=== PATIENT | female | born 1940 | race Caucasian/White ===

== ENCOUNTER 2018-01-12 13:22 | Emergency (ER) | payer OTHER ==
--- OUTSIDE RECORDS SUMMARY | 2018-01-12 13:24 | XMS REPORT | Clinical Summary ---
:1940 Author Organization [facility] Address [address] [place] [id number] Care Team Providers Name Role Phone Asked, No Pcp Primary Care Provider Unavailable Allergies Active Allergy Reactions Severity Noted Date Comments Iodine 11/10/2017 Current Medications Not on file Active Problems Not on file Encounters Date Type Specialty Care Team Description 11/10/2017 Emergency Emergency Medicine 11/10/2017 Hospital Encounter Radiology Nell Whitney Abdominal pain, unspecified abdominal location; MD Grant Mass of colon 11/07/2017 Ancillary Orders Access Nell Whitney MD 10/29/2017 Transcribe Orders Access Nell Whitney Abdominal pain, unspecified abdominal location (Primary Dx); MD Grant Mass of colon; Liver mass after 01/11/2017 Social History Tobacco Use Types Packs/Day Years Used Date Never Assessed Sex Assigned at Date Recorded Not on file Last Filed Vital Signs Vital Sign Reading Time Taken Blood Pressure 127/58 11/10/2017 1:12 PM [employer] Pulse 65 11/10/2017 1:12 PM [employer] Temperature 36.5 C (97.7 F) 11/10/2017 1:12 PM [employer] Respiratory Rate - - Oxygen Saturation 95% 11/10/2017 1:12 PM [employer] Inhaled Oxygen Concentration - - Weight - - Height 162.6 cm (5' 4") 11/10/2017 1:11 PM [employer] Body Mass Index - - Plan of Treatment Health Maintenance Due Date Last Done Comments SHINGRIX VACCINE (#1) 1990 ZOSTER VACCINE 2000 PNEUMOCOCCAL POLYSACCHARIDE VACCINE AGE 65 AND OVER 2005 PNEUMOCOCCAL-13 2005 INFLUENZA VACCINE 04/08/2018 Results [place] Colon Barium Enema (11/10/2017 12:41 PM) Specimen Performing Laboratory [facility] [address] [place] [address] Narrative EXAMINATION:FL COLON BARIUM ENEMA CLINICAL HISTORY:R10.9 Unspecified abdominal pain, K63.9 Disease of intestineunspecified, ABD PAIN AND COLON MASSINCOMPLETE COLONSCOPY COMPARISON:None. TECHNIQUE: Barium was attempted to administered via a rectal tube by gravity under fluoroscopic guidance. However, despite repeated attempts, only the rectum could be filled with contrast before the patient ejected the balloon per rectum.. Spot radiographs and overhead films were obtained. FLUOROSCOPIC TIME:1 minute. Total of 2 fluoroscopic spot images obtained. FINDINGS: Care Mgr image demonstrates nonobstructive bowel gas pattern. Atherosclerotic calcification. A right hip arthroplasty. There appears to be subtotal colectomy with a primary anastomosis to the rectum , though this could represent nondistended sigmoid colon. Evaluation is limited due to underdistention and only a small amount of contrast able to be administered. Of note however there is no contrast extravasation to indicate leak. IMPRESSION: Limited exam as detailed above. Possible distal colonic anastomosis. [facility]-[id number] Procedure Note [facility], Radiology Results Incoming - 11/10/2017 4:18 PM [employer] EXAMINATION: [place] COLON BARIUM ENEMA CLINICAL HISTORY: R10.9 Unspecified abdominal pain, K63.9 Disease of intestine unspecified, ABD PAIN AND COLON MASS INCOMPLETE COLONSCOPY COMPARISON: None. TECHNIQUE: Barium was attempted to administered via a rectal tube by gravity under fluoroscopic guidance. However, despite repeated attempts, only the rectum could be filled with contrast before the patient ejected the balloon per rectum.. Spot radiographs and overhead films were obtained. FLUOROSCOPIC TIME: 1 minute. Total of 2 fluoroscopic spot images obtained. FINDINGS: Care Mgr image demonstrates nonobstructive bowel gas pattern. Atherosclerotic calcification. A right hip arthroplasty. There appears to be subtotal colectomy with a primary anastomosis to the rectum , though this could represent nondistended sigmoid colon. Evaluation is limited due to underdistention and only a small amount of contrast able to be administered. Of note however there is no contrast extravasation to indicate leak. IMPRESSION: Limited exam as detailed above. Possible distal colonic anastomosis. [facility]-[id number] after 01/11/2017 Insurance Payer Benefit Plan / Group Subscriber ID Type Phone Address MEDICARE MEDICARE PART A AND B xxxxxxxxxx Medicare [place], [place] FOR LIFE [phone] [place], [place] [phone]
--- OUTSIDE RECORDS SUMMARY | 2018-01-12 13:25 | XMS REPORT | Clinical Summary ---
:1940 Author Organization [employer] Address [address] [place] [address] Phone Care Team Providers Name Role Phone Unavailable Primary Care Provider Unavailable Allergies Active Allergy Reactions Severity Noted Date Comments Iodine And Iodide Containing Hives 05/22/1977 Pt does eat shrimps and Products other seafood. Current Medications Prescription Sig. Disp. Refills Start Date End Date Status aspirin 81 MG EC Take 81 mg by Active tablet mouth daily. atorvastatin Take 40 mg by Active (LIPITOR) 40 MG mouth daily. tablet calcium Take 1 tablet Active carbonate-vitamin by mouth 2 D3 (CALCIUM-VITAMIN (two) times D) 500 mg(1,250mg) daily with -200 unit per breakfast and tablet dinner. donepezil (ARICEPT) Take 10 mg by Active 10 MG tablet mouth nightly. metFORMIN Take 500 mg by Active (GLUCOPHAGE) 500 MG mouth 2 (two) tablet times daily with breakfast and dinner. albuterol HFA Inhale 1 puff Active (VENTOLIN HFA) 90 by mouth via mcg/actuation inhaler every 6 inhaler (six) hours as needed for Wheezing (SOB). nicotine (NICODERM Place 1 patch Active CQ) 21 mg/24 hr onto the skin patch daily. nitroglycerin Place 0.4 mg Active (NITROSTAT) 0.4 MG under the SL tablet tongue every 5 (five) minutes as needed for Chest pain Put 1 pill under tongue every 5min as needed for chest pain.No more than 3 doses in 15min.Call 911 if pain is unrelieved 5min after 1st dose . metoprolol TAKE 1/2 45 tablet 0 05/29/2017 Active (TOPROL-XL) 25 MG TABLET(12.5 MG) 24 hr tablet BY MOUTH DAILY lisinopril TAKE 1 90 tablet 0 05/29/2017 Active (PRINIVIL,ZESTRIL) TABLET(2.5 MG) 2.5 MG tablet BY MOUTH DAILY clopidogrel TAKE 1 TABLET 90 tablet 0 05/29/2017 Active (PLAVIX) 75 mg BY MOUTH DAILY. tablet HYDROcodone-acetami Take 1 tablet Active nophen (NORCO by mouth every 10-325) 10-325 mg 6 (six) hours per tablet as needed for Pain. multivitamin per Take 1 tablet Active tablet by mouth daily. lisinopril TAKE 1 30 tablet 0 06/19/2017 Active (PRINIVIL,ZESTRIL) TABLET(2.5 MG) 2.5 MG tablet BY MOUTH DAILY metoprolol TAKE 1/2 30 tablet 0 07/25/2017 Active (TOPROL-XL) 25 MG TABLET(12.5 MG) 24 hr tablet BY MOUTH DAILY folic acid Take 400 mcg by Discontinued (FOLVITE) 400 MCG mouth daily. 7 tablet metoprolol Take 25 mg by Discontinued (TOPROL-XL) 25 MG mouth daily. 7 24 hr tablet lisinopril Take 1 tablet 30 tablet 0 05/28/2017 Discontinued (PRINIVIL,ZESTRIL) (2.5 mg total) 7 2.5 MG tablet by mouth daily. metoprolol Take 0.5 30 tablet 0 05/28/2017 Discontinued (TOPROL-XL) 25 MG tablets (12.5 7 24 hr tablet mg total) by mouth daily. furosemide (LASIX) Take 1 tablet 20 tablet 0 05/28/2017 Discontinued 20 MG tablet (20 mg total) 7 by mouth 2 (two) times daily. clopidogrel Take 1 tablet 30 tablet 0 05/28/2017 Discontinued (PLAVIX) 75 mg (75 mg total) 7 tablet by mouth daily. furosemide (LASIX) TAKE 1 180 tablet 0 05/29/2017 Discontinued 20 MG tablet TABLET(20 MG) 7 BY MOUTH TWICE DAILY furosemide (LASIX) TAKE 1 20 tablet 0 06/09/2017 Discontinued 20 MG tablet TABLET(20 MG) 7 BY MOUTH TWICE DAILY Active Problems Problem Noted Date Diabetes mellitus (HCC) 05/25/2017 Acute pulmonary insufficiency following thoracic surgery ([facility]) 05/24/2017 Encephalopathy acute 05/24/2017 Cardiogenic shock (HCC) 05/24/2017 COPD (chronic obstructive pulmonary disease) (HCC) 05/24/2017 Hyperchloremic metabolic acidosis 05/24/2017 Acute blood loss anemia 05/24/2017 Acute respiratory insufficiency, postoperative 05/23/2017 Hypoxemia 05/23/2017 Hemoptysis 05/23/2017 NSTEMI (non-ST elevated myocardial infarction) (HCC) 05/22/2017 Encounters Date Type Specialty Care Team Description 07/24/2017 Refill Cardiology Luis Jason MD 06/19/2017 Refill Cardiology Luis Jason MD 06/12/2017 Office Visit Transplant Cristina, S/P coronary artery MD Sasha bypass graft x 2 (Primary Dx) 06/06/2017 Refill Cardiology Luis Jason MD 05/28/2017 Refill Cardiology Luis Jason MD 05/23/2017 Procedure Pass 05/23/2017 Surgery Bee, BYPASS,AORTO CORONARY MD Sasha ADRIANE/SVG 05/22/2017 - Hospital Encounter Cardiology Larry Mccray, NSTEMI (non-ST 05/28/2017 MD elevated myocardial infarction) ([facility]);SOB (shortness of breath);Left main coronary artery disease;Smoker;Type 2 diabetes mellitus with other circulatory complication ([facility]);Secondary hypertension;Chest pain, unspecified type;Acute respiratory insufficiency, postoperative;Hypoxem ia;Hemoptysis;Acute blood loss anemia;Acute pulmonary insufficiency following thoracic surgery (HCC);Cardiogenic shock (HCC) 05/22/2017 Anesthesia Event Claudia Zaragoza MD 05/22/2017 Orders Only General Internal Medicine after 01/11/2017 Family History Medical History Relation Name Comments Cancer Father Cancer Mother Cancer Sister Relation Name Status Comments Father Mother Sister Social History Tobacco Use Types Packs/Day Years Used Date Former Smoker 0.5 60 Quit: 05/21/2017 Smokeless Tobacco: Never Used Tobacco Cessation: Counseling Given: Yes Alcohol Use Drinks/Week oz/Week Comments No Sex Assigned at Date Recorded Not on file Last Filed Vital Signs Vital Sign Reading Time Taken Blood Pressure 130/69 06/12/2017 12:33 PM CDT Pulse 60 06/12/2017 12:33 PM CDT Temperature 35.7 C (96.3 F) 06/12/2017 12:33 PM CDT Respiratory Rate 18 06/12/2017 12:33 PM CDT Oxygen Saturation 98% 06/12/2017 12:33 PM CDT Inhaled Oxygen Concentration - - Weight 67.8 kg (149 lb 6.4 oz) 06/12/2017 12:33 PM CDT Height 162.6 cm (5' 4") 06/12/2017 12:33 PM CDT Body Mass Index 25.64 06/12/2017 12:33 PM CDT Plan of Treatment Health Maintenance Due Date Last Done Comments INFLUENZA VACCINE 06/08/2018 Procedures Procedure Name Priority Date/Time Associated Diagnosis Comments ENDOSCOPIC HARVEST,VEIN 05/23/2017 7:30 AM CAD CDT BYPASS,AORTO CORONARY 05/23/2017 7:30 AM CAD ADRIANE/SVG CDT after 01/11/2017 Results RHYTHM STRIP - SCAN (06/04/2017 10:20 AM)Only the most recent of2 resultswithin the time period is included.EKG-SCANNED (05/29/2017 2:21 PM)PERMANENT LAB REPORT - SCAN (05/29/2017 2:20 PM)Calcium, Ionized (05/28/2017 4:36 AM)Only the most recent of8 resultswithin the time period is included. Component Value Ref Range Calcium, Ion 1.10 (L) 1.12 - 1.27 mmol/L pH, Blood 7.34 Specimen Performing Laboratory Blood - Arm, [address] [address] CBC with platelet count + automated diff (05/28/2017 4:36 AM)Only the most recent of7 resultswithin the time period is included. Component Value Ref Range WBC 10.4 3.5 - 10.5 K/L RBC 2.75 (L) 3.93 - 5.22 M/L Hemoglobin 8.3 (L) 11.2 - 15.7 GM/DL Hematocrit 26.2 (L) 34.1 - 44.9 % MCV 95.3 (H) 79.4 - 94.8 fL MCH 30.2 25.6 - 32.2 pg MCHC 31.7 (L) 32.2 - 35.5 GM/DL RDW 15.6 (H) 11.7 - 14.4 % Platelets 213 150 - 450 K/CU MM MPV 11.4 9.4 - 12.3 fL nRBC 0 0 - 0 /100 WBC % Neutros 59 % % Lymphs 22 % % Monos 12 % % Eos 5 % % Baso 1 % # Neutros 6.17 (H) 1.56 - 6.13 K/L # Lymphs 2.26 1.18 - 3.74 K/L # Monos 1.26 (H) 0.24 - 0.36 K/L # Eos 0.52 (H) 0.04 - 0.36 K/L # Baso 0.05 0.01 - 0.08 K/L Immature Granulocytes-Relative 1 0 - 1 % Specimen Performing Laboratory Blood - Arm, [address] [address] CBC with platelet count + automated diff (05/28/2017 4:36 AM)Only the most recent of7 resultswithin the time period is included. Specimen Performing Laboratory Blood Narrative The following orders were created for panel order CBC with platelet count + automated diff. Procedure Abnormality Status --------- ------ CBC with platelet count ...[[id number]]AbnormalFinal result Please view results for these tests on the individual orders. Phosphorus (05/28/2017 4:36 AM)Only the most recent of4 resultswithin the time period is included. Component Value Ref Range Phosphorus 3.5 2.3 - 4.7 mg/dL Specimen Performing Laboratory Blood - Arm, [address] [address] Magnesium (05/28/2017 4:36 AM)Only the most recent of6 resultswithin the time period is included. Component Value Ref Range Magnesium 2.0 1.6 - 2.6 mg/dL Specimen Performing Laboratory Blood - Arm, [address] [address] Basic Metabolic Panel (05/28/2017 4:36 AM)Only the most recent of8 resultswithin the time period is included. Component Value Ref Range Sodium 143 136 - 145 meq/L Potassium 3.8 3.5 - 5.1 meq/L Chloride 109 (H) 98 - 107 meq/L CO2 29 22 - 29 meq/L BUN 22 (H) 7 - 21 mg/dL Creatinine 0.96 0.57 - 1.25 mg/dL Glucose 104 70 - 105 mg/dL Calcium 8.5 8.4 - 10.2 mg/dL EGFR 56Comment: ESTIMATED GFR IS NOT ACCURATE mL/min/1.73 sq m CREATININE CLEARANCE IN PREDICTING GLOMERULAR FILTRATION RATE. ESTIMATED GFR IS NOT APPLICABLE FOR DIALYSIS PATIENTS. Specimen Performing Laboratory Blood - Arm, [place] [address] TRANSFUSION SERVICE REPORT - SCAN (05/26/2017 5:40 PM)Only the most recent of4 resultswithin the time period is included.XR chest 1 view portable / bedside ( 7:51 AM)Only the most recent of5 resultswithin the time period is included. Specimen Performing Laboratory GE RIS Narrative FINAL REPORT Chest one view compared to May 25, 2017 Discussion: Right chest tube is removed. Left-sided drainage tubes remain. Ill-defined opacities both lung bases are similar. There may be a small right effusion. No pneumothorax. Signed: Franco Wilkinson MD Report Verified Date/Time:05/26/2017 09:05:29 Reading Location: [facility] Radiology Reading Room Procedure Note Interface, External Ris In - 05/26/2017 9:07 AM CDT FINAL REPORT Chest one view compared to May 25, 2017 Discussion: Right chest tube is removed. Left-sided drainage tubes remain. Ill-defined opacities both lung bases are similar. There may be a small right effusion. No pneumothorax. Signed: Franco Wilkinson MD Report Verified Date/Time: 05/26/2017 09:05:29 Reading Location: [facility] Radiology Reading Room Vitamin B12 and Folate (05/26/2017 5:49 AM) Component Value Ref Range Vitamin B12 1074 (H) 213 - 816 pg/mL Folate 10.9 >=7.0 ng/mL Specimen Performing Laboratory Blood - Arm, Right [address] [address] Prepare Leuko-Red RBC (05/25/2017 11:54 PM) Component Value Ref Range CROSSMATCH COMPATIBLE Unit ABO O Pos UNIT NUMBER [id number] Status TRANSFUSED Blood Bank Product RED BLOOD CELLS PRODUCT CODE [id number] Specimen Performing Laboratory Other [employer] [place] POC-Glucose meter (05/25/2017 8:54 PM)Only the most recent of3 resultswithin the time period is included. Component Value Ref Range POC-Glucose Meter 146 (H)Comment: TESTED AT [address] 70 - 110 mg/[place] [address] Specimen Performing Laboratory Blood [address] [address] Potassium (05/25/2017 4:48 PM) Component Value Ref Range Potassium 3.7 3.5 - 5.1 meq/L Specimen Performing Laboratory Blood [address] [address] ECHOCARDIOGRAM REPORT - SCAN (05/25/2017 7:20 AM)Oxygen saturation, measured ( 05/25/2017 3:14 AM)Only the most recent of3 resultswithin the time period is included. Component Value Ref Range O2 Saturation (Measured) 67.2 % Specimen Performing Laboratory Blood [address] [address] Prepare PLT (05/24/2017 11:54 PM) Component Value Ref Range Unit ABO O Pos UNIT NUMBER [id number] Status TRANSFUSED Blood Bank Product PLATELETS PRODUCT CODE E3041W01 Unit ABO O Pos UNIT NUMBER [id number] Status TRANSFUSED Blood Bank Product PLATELETS PRODUCT CODE [id number] Specimen Performing Laboratory [employer] [place] Prepare RBC (05/24/2017 11:54 PM) Component Value Ref Range CROSSMATCH COMPATIBLE Unit ABO O Pos UNIT NUMBER [id number] Status TRANSFUSED Blood Bank Product RED BLOOD CELLS PRODUCT CODE T8898X92 CROSSMATCH COMPATIBLE Unit ABO O Pos UNIT NUMBER [id number] Status TRANSFUSED Blood Bank Product RED BLOOD CELLS PRODUCT CODE D7087I38 CROSSMATCH COMPATIBLE Unit ABO O Pos UNIT NUMBER [id number] Status TRANSFUSED Blood Bank Product RED BLOOD CELLS PRODUCT CODE V8862I02 CROSSMATCH COMPATIBLE Unit ABO O Pos UNIT NUMBER [id number] Status TRANSFUSED Blood Bank Product RED BLOOD CELLS PRODUCT CODE [id number] Specimen Performing Laboratory [facility] [place] 2D Echo W/Doppler(CW/PW/Color) (05/24/2017 1:12 PM) Component Value Ref Range Ejection Fraction Specimen Performing Laboratory SLE ECHO HEARTLAB MKLEONID CPACS Narrative Transthoracic Echocardiography Report (TTE) Demographics Patient Name GWENDOLYN GUERRERO Date of Study 05/24/2017 [id number] GenderFemale Visit Number [id number] RaceCaucasian [id number] Number [id number] Number Date of Birth1940 Referring Physician Larry Mccray MD Age77 year(s) 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 Clinical History NSTEMI, Hypoxemia, Acute Respiratory Insufficiency HGB 8.6 HCT 26.2 % Sugery: 9.15.2017 : ACB X3 Height: 64 inches Weight: 62.14 kg (137 lbs) BSA: 1.67 m^2 BMI: 23.52 kg/m^2 HR: 84 bpm BP: 107/50 mmHg Summary The left ventricle is chamber size (by vol index) is normal. Borderline concentric LV hypertrophy. Septal motion is abnormal, likely related to prior cardiac surgery . The other segments contract normally. LVEF by quantitative assessment is increased (>70%) , No pericardial effusion is visualized. The right ventricular chamber size and systolic function are within normal limits. A trace of tricuspid regurgitation. Estimated peak systolic PA pressure is 25-30 mmHg . Signature Findings Left Ventricle The left ventricle is chamber size (by vol index) is normal. Borderline concentric LV hypertrophy. Septal motion is abnormal, likely related to prior cardiac surgery . The other segments contract normally. LVEF by quantitative assessment is increased (>70%) , Left AtriumLA size is mildly enlarged . Right VentricleThe right ventricular chamber size and systolic function are within normal limits. Right Atrium RA size is normal. Aortic Valve Normal AoV structure. No evidence of aortic stenosis. Mitral Valve Mild mitral annular calcification. Trace mitral regurgitation. Tricuspid ValveA trace of tricuspid regurgitation. Estimated peak systolic PA pressure is 25-30 mmHg . Pulmonic Valve PV is not well visualized. No evidence of pulmonary regurgitation. PericardiumNo pericardial effusion is visualized. IVC/SVC/PA/PV/PleuralThe estimated RA pressure by IVC dynamics 0-5mmHg . Chambers/Structures Left Atrium LA Volume: 36.95 ml LA Area: 14.08 cm^ 2 LA Vol. Index: 22 ml/m^2 Left Ventricle LVIDd: 3.9 cm LVEDV 2D :66.07 ml LVIDs: 1.54 cmLVESV 2D :6.49 ml LV Septum Diastolic: 1.26 cm LV Septum Systolic: 1.29 cm LV PW Diastolic: 1.07 cmLV FS: 60.5 % LV PW Systolic: 1.39 cm LV ESV (Cubed): 3.65 cc LVOT Diameter: 2.08 cm LV ESV (Teich):6.49 ml LV SV (Teich):59.42 ml LV SI (Teich):35.58 ml/m^2 LVEF 2D Teich: 90.2 % Shunts QS:75.13 ml Doppler/Quantitative Measurements Mitral Valve MV Peak E-Wave: 0.75 m/sMV Peak A-Wave: 0.92 m/s E/ A Ratio: 0.82 Peak Gradient: 2.25 mmHg Deceleration Time: 247.3 msec Tissue Doppler E' Septal Velocity: 0.09 m/sE/E': 8.2 Aortic Valve Peak Velocity: 1.49 m/sMean Velocity: 1.11 m/s Peak Gradient: 8.87 mmHg Mean Gradient: 5.54 mmHg AV Area (continuity): 2.84 cm^2 AV VTI: 26.44 cm AV DVI: 0.84 LVOT Peak Velocity: 1.38 m/s Peak Gradient: 7.63 mmHg Mean Velocity: 0.89 m/s Mean Gradient: 3.62 mmHg LVOT Diameter: 2.08 cmLVOT VTI: 22.11 cm LVOT Area: 3.4 cm^2 LVOT SV:75.09 ml LVOT CO: 6.31 l/min LVOT CI: 3.78 l/min/m^2 Tricuspid Valve TR Velocity: 2.31 m/s TR Gradient: 21.3 mmHg Procedure Note Interface, External Ris In - 05/24/2017 8:27 PM CDT Transthoracic Echocardiography Report (TTE) Demographics Patient Name GWENDOLYN GUERRERO Date of Study 05/24/2017 Gender Female Visit Number [id number] Race Room Number [id number] Number Date of 1940 Referring Physician Larry Mccray MD Age 77 year(s) 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 Clinical History NSTEMI, Hypoxemia, Acute Respiratory Insufficiency HGB 8.6 HCT 26.2 % Sugery: 9.15.2017 : ACB X3 Height: 64 inches Weight: 62.14 kg (137 lbs) BSA: 1.67 m^2 BMI: 23.52 kg/m^2 HR: 84 bpm BP: 107/50 mmHg Summary The left ventricle is chamber size (by vol index) is normal. Borderline concentric LV hypertrophy. Septal motion is abnormal, likely related to prior cardiac surgery . The other segments contract normally. LVEF by quantitative assessment is increased (>70%) , No pericardial effusion is visualized. The right ventricular chamber size and systolic function are within normal limits. A trace of tricuspid regurgitation. Estimated peak systolic PA pressure is 25-30 mmHg . Signature Findings Left Ventricle The left ventricle is chamber size (by vol index) is normal. Borderline concentric LV hypertrophy. Septal motion is abnormal, likely related to prior cardiac surgery . The other segments contract normally. LVEF by quantitative assessment is increased (>70%) , Left Atrium LA size is mildly enlarged . Right Ventricle The right ventricular chamber size and systolic function are within normal limits. Right Atrium RA size is normal. Aortic Valve Normal AoV structure. No evidence of aortic stenosis. Mitral Valve Mild mitral annular calcification. Trace mitral regurgitation. Tricuspid Valve A trace of tricuspid regurgitation. Estimated peak systolic PA pressure is 25-30 mmHg . Pulmonic Valve PV is not well visualized. No evidence of pulmonary regurgitation. Pericardium No pericardial effusion is visualized. IVC/SVC/PA/PV/Pleural The estimated RA pressure by IVC dynamics 0-5mmHg . Chambers/Structures Left Atrium LA Volume: 36.95 ml LA Area: 14.08 cm^2 LA Vol. Index: 22 ml/m^2 Left Ventricle LVIDd: 3.9 cm LVEDV 2D:66.07 ml LVIDs: 1.54 cm LVESV 2D:6.49 ml LV Septum Diastolic: 1.26 cm LV Septum Systolic: 1.29 cm LV PW Diastolic: 1.07 cm LV FS: 60.5 % LV PW Systolic: 1.39 cm LV ESV (Cubed):3.65 cc LVOT Diameter: 2.08 cm LV ESV (Teich):6.49 ml LV SV (Teich):59.42 ml LV SI (Teich):35.58 ml/m^2 LVEF 2D Teich: 90.2 % Shunts QS:75.13 ml Doppler/Quantitative Measurements Mitral Valve MV Peak E-Wave: 0.75 m/s MV Peak A-Wave: 0.92 m/s E/A Ratio: 0.82 Peak Gradient: 2.25 mmHg Deceleration Time: 247.3 msec Tissue Doppler E' Septal Velocity: 0.09 m/s E/E': 8.2 Aortic Valve Peak Velocity: 1.49 m/s Mean Velocity: 1.11 m/s Peak Gradient: 8.87 mmHg Mean Gradient: 5.54 mmHg AV Area (continuity): 2.84 cm^2 AV VTI: 26.44 cm AV DVI: 0.84 LVOT Peak Velocity: 1.38 m/s Peak Gradient: 7.63 mmHg Mean Velocity: 0.89 m/s Mean Gradient: 3.62 mmHg LVOT Diameter: 2.08 cm LVOT VTI: 22.11 cm LVOT Area: 3.4 cm^2 LVOT SV:75.09 ml LVOT CO: 6.31 l/min LVOT CI: 3.78 l/min/m^2 Tricuspid Valve TR Velocity: 2.31 m/s TR Gradient: 21.3 mmHg Blood gas, arterial (05/24/2017 5:12 AM)Only the most recent of12 resultswithin the time period is included. Component Value Ref Range pH, Arterial 7.33 (L) 7.35 - 7.45 pCO2, Arterial 41 35 - 45 mmHg pO2, Arterial 102 (H) 80 - 90 mmHg O2 Sat, Arterial 97.3 (H) 96.0 - 97.0 % HCO3, Arterial 21 21 - 29 mmol/L Base Excess, Arterial -4.3 (L) -2.0 - 3.0 mmol/L Patient Temperature 37.0 C Specimen Performing Laboratory Blood, Arterial - Line, Arterial [address] [address] Lactic acid, arterial, whole blood (05/24/2017 4:37 AM)Only the most recent of2 resultswithin the time period is included. Component Value Ref Range Lactate, Art 1.8 0.5 - 2.2 mmol/L Specimen Performing Laboratory Blood, Arterial [address] [address] Narrative Effective 01/10/2016: Units/Reference Range Change New: 0.5-2.2 mmol/LPrevious: 5-20 mg/dL Transfuse Leuko-Red RBC (05/24/2017 3:36 AM)Only the most recent of2 resultswithin the time period is included.Hemoglobin and hematocrit (05/23/2017 11:29 PM) Component Value Ref Range Hemoglobin 7.6 (L) 12.0 - 15.0 g/dL Hematocrit 22.0 (L) 36.0 - 45.0 % Specimen Performing Laboratory Blood - Line, Arterial [address] [address] Narrative Done at stat lab. Bronchial culture + gram stain (05/23/2017 5:37 PM) Component Value Ref Range Result <1+ Normal respiratory eugenio present Gram Stain Result 1+ WBCs Gram Stain Result No organisms seen Specimen Performing Laboratory BAL - Lung [address] [address] Glucose-Stat Lab (05/23/2017 4:54 PM)Only the most recent of9 resultswithin the time period is included. Component Value Ref Range Glucose 168 (H) 70 - 110 mg/dL Specimen Performing Laboratory Blood, Arterial - Line, Arterial [address] [address] Sputum Culture + Gram Stain (05/23/2017 2:11 PM) Component Value Ref Range Result 2+ Normal respiratory eugenio present Gram Stain Result 3+ WBCs Gram Stain Result 0-5 epithelial cells Gram Stain Result <1+ gram positive cocci in pairs Specimen Performing Laboratory Sputum - Endotracheal [address] [address] [facility] CRITICAL LABS (ABG,NA,K,H&H,GLUCOSE) (05/23/2017 1:28 PM)Only the most recent of8 resultswithin the time period is included. Specimen Performing Laboratory Blood, Arterial Narrative The following orders were created for panel order [facility] CRITICAL LABS (ABG,NA,K,H&H,GLUCOSE). Procedure Abnormality Status --------- ------ Blood gas, arterial[[id number]]AbnormalFinal result Sodium Na-Stat Lab[[id number]] NormalFinal result Potassium-Stat Lab[[id number]] NormalFinal result Glucose-Stat Lab[[id number]] NormalFinal result HGB/HCT (H&H)-Stat Lab[[id number]] Abnormal Final result Please view results for these tests on the individual orders. Manual Differential (05/23/2017 1:28 PM) Specimen Performing Laboratory Blood [address] [address] Potassium-Stat Lab (05/23/2017 1:28 PM)Only the most recent of8 resultswithin the time period is included. Component Value Ref Range Potassium 4.2 3.6 - 5.5 meq/L Specimen Performing Laboratory Blood, Arterial [address] [address] Sodium Na-Stat Lab (05/23/2017 1:28 PM)Only the most recent of8 resultswithin the time period is included. Component Value Ref Range Sodium 137 135 - 148 meq/L Specimen Performing Laboratory Blood, Arterial [address] [address] HGB/HCT (H&H)-Stat Lab (05/23/2017 1:28 PM)Only the most recent of8 resultswithin the time period is included. Component Value Ref Range Hemoglobin 9.1 (L) 12.0 - 15.0 g/dL Hematocrit 27.0 (L) 36.0 - 45.0 % Specimen Performing Laboratory Blood, Arterial [address] [address] Thromboelastograph (TEG) (05/23/2017 1:28 PM) Component Value Ref Range TEG Activated Clotting Time 5.6 4.0 - 7.0 minutes TEG Fibrinogen Activity 70.5 61.0 - 73.0 degrees TEG Platelet Aggregation 46.6 (L) 55.0 - 65.0 MM TEG Fibrinolysis 22.6 (H) 0.0 - 5.0 % TEG-H Activated Clotting Time 6.2 4.0 - 7.0 minutes TEG-H Fibrinogen Activity 72.7 61.0 - 73.0 degrees TEG-H Platelet Aggregation 63.0 55.0 - 65.0 MM TEG-H Fibrinolysis 0.0 0.0 - 5.0 % Specimen Performing Laboratory Blood [address] [address] POC ACTIVATED CLOTTING TIME (05/23/2017 11:45 AM)Only the most recent of7 resultswithin the time period is included. Component Value Ref Range Activated Clotting Time 109Comment: TESTED AT [address] [place] [address] Specimen Performing Laboratory Blood [facility] [address] [place] [address] ANESTHESIA COLLINS (05/23/2017 11:42 AM) Narrative Riki Edwards MD 05/23/2017 11:42 AM COLLINS Date: 05/23/2017 8:59 AM Sex: Female Location: OR Requesting Physician: SASHA SMALL Examiner: RIKI EDWARDS IntubatedSedated Patient screened for esoph disease: Yes Insertion: easy Probe Type: multiplane Modalities: 2D, CFM, CWD and PWD Aorta Size Dissection Plaque Thick Plaque Mobile Ascending Ao normal No < 3mm No Ao Arch normal No < 3mm No Descending Ao normal No < 3mm No Valves Annulus Stenosis Area (cm3) Gradient Regurgitation Leaflet Morphology Leaflet Motion Not Visualized Aortic valve normal none none normal normal Mitral valve normal none none normal normal Tricuspid normal none trivial (1+) normal normal Atria Size SEC Thrombus Tumor Device Right Atrium normal Left Atrium normal Interatrial Septum: Morphology: normal ASD: Shunt: Interventricular Septum: Morphology: normal Defect: Shunt: Pre Intervention Summary: Procedure: ACB Trace aortic regurgitation. No aortic stenosis. Mean gradient across aortic valve 3mHg. Trileaflet aortic valve without calcifications. Trace mitral regurgitation. Mild Tricuspid stenosis. RVSP 41. Ejection fraction 55% via 3-D Mccray's. No regional wall motion abnormalities. E/A ration 1.0. LA appendage without clot. Flow velocity >40cm/s. RV function normal. Normal RV size. No pericardial effusion. Grade 1 atheromatous disease throughout visualized aorta. No dissection. Findings communicated with surgical team. Post Intervention Follow-up Study: no change Lytton Valve Fxn: No change Post Intervention Summary:Status post ACB. Normal left ventricular wall function. No new regional wall motion abnormalities. Normal RV function and size. No new aortic valve, mitral or tricupsid valvulopathy. No new aortic pathology. No dissection. No pericardial effusion. Findings discussed with surgical colleagues. Procedure Note Riki Edwards MD - 05/23/2017 8:59 AM CDT Formatting of this note may be different from the original. COLLINS Date: 05/23/2017 8:59 AM Sex: Female Location: OR Requesting Physician: SASHA SMALL Examiner: RIKI EDWARDS Intubated Sedated Patient screened for esoph disease: Yes Insertion: easy Probe Type: multiplane Modalities: 2D, CFM, CWD and PWD Aorta Size Dissection Plaque Thick Plaque Mobile Ascending Ao normal No < 3mm No Ao Arch normal No < 3mm No Descending Ao normal No < 3mm No Valves Annulus Stenosis Area (cm3) Gradient Regurgitation Leaflet Morphology Leaflet Motion Not Visualized Aortic valve normal none none normal normal Mitral valve normal none none normal normal Tricuspid normal none trivial (1+) normal normal Atria Size SEC Thrombus Tumor Device Right Atrium normal Left Atrium normal Interatrial Septum: Morphology: normal ASD: Shunt: Interventricular Septum: Morphology: normal Defect: Shunt: Pre Intervention Summary: Procedure: ACB Trace aortic regurgitation. No aortic stenosis. Mean gradient across aortic valve 3mHg. Trileaflet aortic valve without calcifications. Trace mitral regurgitation. Mild Tricuspid stenosis. RVSP 41. Ejection fraction 55% via 3-D Mccray's. No regional wall motion abnormalities. E/A ration 1.0. LA appendage without clot. Flow velocity >40cm/s. RV function normal. Normal RV size. No pericardial effusion. Grade 1 atheromatous disease throughout visualized aorta. No dissection. Findings communicated with surgical team. Post Intervention Follow-up Study: no change Lytton Valve Fxn: No change Post Intervention Summary: Status post ACB. Normal left ventricular wall function. No new regional wall motion abnormalities. Normal RV function and size. No new aortic valve, mitral or tricupsid valvulopathy. No new aortic pathology. No dissection. No pericardial effusion. Findings discussed with surgical colleagues. Blood gas, venous (05/23/2017 9:57 AM) Component Value Ref Range pH, Max 7.32 7.32 - 7.42 pCO2, Max 44 41 - 51 mmHg pO2, Max 41 (H) 25 - 40 mmHg O2 Sat, Max 80.5 (H) 40.0 - 70.0 % HCO3, Max 23 21 - 29 mmol/L Base Excess, Max -3.6 (L) -2.0 - 3.0 mmol/L Patient Temperature 34.0 C FIO2 80.0 % Specimen Performing Laboratory Blood [facility] [address] [address] PERIPHERAL VASCULAR REPORT - SCAN (05/23/2017 7:20 AM)Troponin I (05/23/2017 3 :44 AM)Only the most recent of2 resultswithin the time period is included. Component Value Ref Range Troponin I 0.78 (HH) 0.00 - 0.03 ng/mL Specimen Performing Laboratory Blood [address] [address] Narrative Troponin I (TnI) levels must be interpreted in the context of the presenting symptoms and the clinical findings. Elevated TnI levels indicate myocardial damage, but are not specific for ischemic heart disease. Elevated TnI levels are seen in patients with other cardiac conditions (including myocarditis and congestive heart failure), and slight TnI elevations occur in patients with other conditions, including sepsis, renal failure, acidosis, acute neurological disease, and persistent tachyarrhythmia. aPTT (05/23/2017 3:44 AM)Only the most recent of2 resultswithin the time period is included. Component Value Ref Range PTT 74.8 (H) 22.5 - 36.0 seconds Specimen Performing Laboratory Blood [address] [address] Creatine Kinase (CK), Total and MB (05/23/2017 3:44 AM) Component Value Ref Range Total CK 65 29 - 200 U/L CK-MB 2.1 0.0 - 6.6 ng/mL MB Relative Index 3.2 % Specimen Performing Laboratory Blood [address] [address] Narrative CK-MB Reference Range: <6.7Normal 6.7-10.0Borderline >10.0 Abnormal Carotid doppler bilateral (05/22/2017 9:51 PM) Component Value Ref Range Ejection Fraction Specimen Performing Laboratory [facility] ECHO HEART[facility] MKCKESSON CPACS Impressions Right Impression 1. There is <50% diameter reduction (approximately 37% by 2-D measurement) in the internal carotid artery with a peak velocity of 79/29 cm/sec and heterogeneous plaque. 2. There is non-occluding plaque in the external carotid artery. 3. There is non-occluding plaque in the common carotid artery. 4. The vertebral artery flow is antegrade . Left Impression 1. There is <50% diameter reduction (approximately 26% by 2-D measurement) in the internal carotid artery with a peak velocity of 63/17 cm/sec and heterogeneous plaque. 2. There is non-occluding plaque in the external carotid artery. 3. There is non-occluding plaque in the common carotid artery. 4. The vertebral artery flow is antegrade . Conclusions Summary Carotid duplex scanning and color flow imaging were performed bilaterally. The arteries were adequately visualized. The bilateral internal carotid arteries had <50% hemodynamically insignificant stenosis (approximately 37% by 2-D measurement on the right, approximately 26% by 2-D measurement on the left) with heterogeneous plaque. The vertebral artery flow was antegrade and normal bilaterally. Signature Velocities are measured in cm/s ; Diameters are measured in cm Carotid Right Measurements +---------+----+----+-----+ + + + !Location !PSV !EDV !Angle!%Stenosis 2D !%Stenosis Doppler !Tortuosity ! +---------+----+----+-----+ + + + !Prox CCA !73.9!21.1!60 ! !! ! +---------+----+----+-----+ + + + !Dist CCA !67.4!17.6!60 ! !! ! +---------+----+----+-----+ + + + !Prox ICA !79.2!29.9!60 !37%!<50%! ! +---------+----+----+-----+ + + + !Dist ICA !73.9!24.6!60 ! !! ! +---------+----+----+-----+ + + + !Prox ECA !124 !12.6!60 ! !! ! +---------+----+----+-----+ + + + !Vertebral!68!25.2!60 ! !! ! +---------+----+----+-----+ + + + - There is antegrade vertebral flow noted on the right side. - Additional Measurements:ICAPSV/CCAPSV 1.18.ICAEDV/CCAEDV 1.42. Carotid Left Measurements +---------+----+----+-----+ + + + !Location !PSV !EDV !Angle!%Stenosis 2D !%Stenosis Doppler !Tortuosity ! +---------+----+----+-----+ + + + !Prox CCA !96.2!28.1!60 ! !! ! +---------+----+----+-----+ + + + !Dist CCA !93.2!21.7!60 ! !! ! +---------+----+----+-----+ + + + !Prox ICA !63.8!17.8!50 !26%!<50%! ! +---------+----+----+-----+ + + + !Dist ICA !63.9!22.3!60 ! !! ! +---------+----+----+-----+ + + + !Prox ECA !101 !11.1!60 ! !! ! +---------+----+----+-----+ + + + !Vertebral!64.5!22.9!60 ! !! ! +---------+----+----+-----+ + + + - There is antegrade vertebral flow noted on the left side. - Additional Measurements:ICAPSV/CCAPSV 0.69.ICAEDV/CCAEDV 0.79. Narrative [facility] - Carotid Duplex Study Demographics Patient Name GWENDOLYN GUERRERO Date of Study05/22/2017 [id number] Visit Number [id number] Gender Female Accession Number [id number] Date of Birth1940 Natan Mccray MD Room [id number] Physician Meng Louis MD, [facility] Procedure Type of Study: Cerebral: Carotid, CAROTID DOPPLER, BILATERAL. Indications for Study:PVD. Blood Pressure:Right arm 121/69 mmHg.Left arm 123/69 mmHg. Patient Status:STAT. Study Location:Portable. Technical Quality:Adequate visualization. Risk Factors History of Disease + + + + !Diagnosis !Date!Comments ! + + + + !History/Risk Factors: !05/22/2017!CAD ! !!!DM ! !!!Smoker ! !!!HTN ! !!!HLD ! !!!S/P AAA repair > 30 years ago ! + + + + Procedure Note Interface, External Ris In - 05/23/2017 6:13 AM CDT [facility] - Carotid Duplex Study Demographics Patient Name GWENDOLYN GUERRERO Date of Study 05/22/2017 Age 77 Visit Number [id number] Gender Female Accession Number [id number] Date of 1940 Referring Larry Mccray MD Room Number [id number] Physician Professional Application Designer Amara Shell Interpreting Matthew Rivera T Physician , RPVI Procedure Type of Study: Cerebral: Carotid, CAROTID DOPPLER, BILATERAL. Indications for Study:PVD. Blood Pressure:Right arm 121/69 mmHg.Left arm 123/69 mmHg. Patient Status:STAT. Study Location:Portable. Technical Quality:Adequate visualization. Risk Factors History of Disease + + + + !Diagnosis !Date !Comments ! + + + + !History/Risk Factors: !05/22/2017!CAD ! ! ! !DM ! ! ! !Smoker ! ! ! !HTN ! ! ! !HLD ! ! ! !S/P AAA repair > 30 years ago ! + + + + Impressions Right Impression 1. There is <50% diameter reduction (approximately 37% by 2-D measurement) in the internal carotid artery with a peak velocity of 79/29 cm/sec and heterogeneous plaque. 2. There is non-occluding plaque in the external carotid artery. 3. There is non-occluding plaque in the common carotid artery. 4. The vertebral artery flow is antegrade . Left Impression 1. There is <50% diameter reduction (approximately 26% by 2-D measurement) in the internal carotid artery with a peak velocity of 63/17 cm/sec and heterogeneous plaque. 2. There is non-occluding plaque in the external carotid artery. 3. There is non-occluding plaque in the common carotid artery. 4. The vertebral artery flow is antegrade . Conclusions Summary Carotid duplex scanning and color flow imaging were performed bilaterally. The arteries were adequately visualized. The bilateral internal carotid arteries had <50% hemodynamically insignificant stenosis (approximately 37% by 2-D measurement on the right, approximately 26% by 2-D measurement on the left) with heterogeneous plaque. The vertebral artery flow was antegrade and normal bilaterally. Signature Velocities are measured in cm/s ; Diameters are measured in cm Carotid Right Measurements +---------+----+----+-----+ + + + !Location !PSV !EDV !Angle!%Stenosis 2D !%Stenosis Doppler !Tortuosity ! +---------+----+----+-----+ + + + !Prox CCA !73.9!21.1!60 ! ! ! ! +---------+----+----+-----+ + + + !Dist CCA !67.4!17.6!60 ! ! ! ! +---------+----+----+-----+ + + + !Prox ICA !79.2!29.9!60 !37% !<50% ! ! +---------+----+----+-----+ + + + !Dist ICA !73.9!24.6!60 ! ! ! ! +---------+----+----+-----+ + + + !Prox ECA !124 !12.6!60 ! ! ! ! +---------+----+----+-----+ + + + !Vertebral!68 !25.2!60 ! ! ! ! +---------+----+----+-----+ + + + - There is antegrade vertebral flow noted on the right side. - Additional Measurements:ICAPSV/CCAPSV 1.18.ICAEDV/CCAEDV 1.42. Carotid Left Measurements +---------+----+----+-----+ + + + !Location !PSV !EDV !Angle!%Stenosis 2D !%Stenosis Doppler !Tortuosity ! +---------+----+----+-----+ + + + !Prox CCA !96.2!28.1!60 ! ! ! ! +---------+----+----+-----+ + + + !Dist CCA !93.2!21.7!60 ! ! ! ! +---------+----+----+-----+ + + + !Prox ICA !63.8!17.8!50 !26% !<50% ! ! +---------+----+----+-----+ + + + !Dist ICA !63.9!22.3!60 ! ! ! ! +---------+----+----+-----+ + + + !Prox ECA !101 !11.1!60 ! ! ! ! +---------+----+----+-----+ + + + !Vertebral!64.5!22.9!60 ! ! ! ! +---------+----+----+-----+ + + + - There is antegrade vertebral flow noted on the left side. - Additional Measurements:ICAPSV/CCAPSV 0.69.ICAEDV/CCAEDV 0.79. Type and screen, automated ([facility]) (05/22/2017 7:03 PM) Component Value Ref Range ABO/RH AUTOMATED (BEAKER) O POSITIVE Ab Scrn NEGATIVE Specimen Performing Laboratory Blood - Arm, [address] [address] Iron, TIBC, % sat. (without ferritin) (05/22/2017 7:03 PM) Component Value Ref Range Iron 36 (L) 40 - 160 ug/dL TIBC 365 250 - 450 ug/dL Iron % Saturation 10 (L) 20 - 55 % Specimen Performing Laboratory Blood - Arm, [address] [address] Prothrombin time/INR (05/22/2017 7:03 PM) Component Value Ref Range Protime 14.3 11.7 - 14.7 seconds INR 1.1 <=5.9 Specimen Performing Laboratory Blood - Arm, [address] [address] Narrative RECOMMENDED COUMADIN/WARFARIN INR THERAPY RANGES STANDARD DOSE: 2.0 - 3.0 Includes: PROPHYLAXIS for venous thrombosis, systemic embolization; TREATMENT for venous thrombosis and/or pulmonary embolus. HIGH RISK: Target INR is 2.5-3.5 for patients with mechanical heart valves. B-type Natriuretic Factor (BNP) (05/22/2017 7:03 PM) Component Value Ref Range BNP 202 (H) 0 - 100 pg/mL Specimen Performing Laboratory Blood - Arm, [address] [address] Hemoglobin A1c (05/22/2017 7:03 PM) Component Value Ref Range Hemoglobin A1C 6.0 4.3 - 6.1 % Specimen Performing Laboratory Blood - Arm, [address] [address] Ferritin (05/22/2017 7:03 PM) Component Value Ref Range Ferritin 58 5 - 275 ng/mL Specimen Performing Laboratory Blood - Arm, [address] [address] Lipid panel (05/22/2017 7:03 PM) Component Value Ref Range Triglycerides 86 mg/dL Cholesterol 114 mg/dL HDL 40 mg/dL LDL Calculated 57 mg/dL Specimen Performing Laboratory Blood - Arm, [address] [address] Narrative Triglyceride Reference Range: Low Risk <150 [id number] High Risk 200-499 Very High Risk>=500 Cholesterol Reference Range: Low Risk <200 [id number] High Risk>240 HDL Cholesterol Reference Range: Low Risk >=60 High Risk <40 LDL Cholesterol Reference Range: Optimal<100 Near [id number] Very High >=190 ECG 12 lead (05/22/2017 6:24 PM) Specimen Performing Laboratory GE MUSE Narrative Ventricular Rate 68 BPM Atrial Rate 68 BPM P-R Interval 148 ms QRS Duration 88 ms Q-T Interval 390 ms QTC Calculation(Bazett) 414 ms P Driscoll 58 degrees R Driscoll 30 degrees T Driscoll 75 degrees Normal sinus rhythm ST & T wave abnormality, consider anterior ischemia Abnormal ECG No previous ECGs available Confirmed by Victorina Harrison Alireaz ([id number]) on 05/22/2017 11:10:07 PM Procedure Note Interface, External Ris In - 05/22/2017 11:10 PM CDT Ventricular Rate 68 BPM Atrial Rate 68 BPM P-R Interval 148 ms QRS Duration 88 ms Q-T Interval 390 ms QTC Calculation(Bazett) 414 ms P Driscoll 58 degrees R Driscoll 30 degrees T Driscoll 75 degrees Normal sinus rhythm ST & T wave abnormality, consider anterior ischemia Abnormal ECG No previous ECGs available Confirmed by Victorina Harrison Alireaz ([id number]) on 05/22/2017 11:10:07 PM after 01/11/2017
--- OUTSIDE RECORDS SUMMARY | 2018-01-12 13:26 | XMS REPORT ---
:1940 [facility] Address [address] [place] [address] Care Team Providers Name Role Phone SALVADOR RANGELO Unavailable Unavailable Problems This patient has no known problems. Allergies, Adverse Reactions, Alerts This patient has no known allergies or adverse reactions. Medications This patient has no known medications. Results Test Description Test Time Test Comments Text Results Atomic Results Result Comments CALCIUM, IONIZED 2017-05-28 06:28:00 Test Item Value Reference Range Comments CALCIUM IONIZED (BEAKER) (test otqi=398) 1.10 mmol/L 1.12-1.27 PH, BLOOD (BEAKER) (test goos=5510) 7.34 [id number] 05:52:00 Test Item Value Reference Range Comments PHOSPHORUS (BEAKER) (test omgz=402) 3.5 mg/dL 2.3-4.7 [id number] 05:52:00 Test Item Value Reference Range Comments MAGNESIUM (BEAKER) (test fwbe=726) 2.0 mg/dL 1.6-2.6 BASIC METABOLIC [id number] 05:52:00 Test Item Value Reference Range Comments SODIUM (BEAKER) (test 143 meq/L 136-145 pzwo=390) POTASSIUM (BEAKER) (test 3.8 meq/L 3.5-5.1 uwbh=549) CHLORIDE (BEAKER) (test 109 meq/L 98-107 suht=979) CO2 (BEAKER) (test 29 meq/L 22-29 drvr=353) BLOOD UREA NITROGEN 22 mg/dL 7-21 (BEAKER) (test fsel=863) CREATININE (BEAKER) (test 0.96 mg/dL 0.57-1.25 sfiq=150) GLUCOSE RANDOM (BEAKER) 104 mg/dL 70-105 (test aapc=002) CALCIUM (BEAKER) (test 8.5 mg/dL 8.4-10.2 cctj=845) EGFR (BEAKER) (test 56 mL/min/1.73 sq m ESTIMATED GFR IS NOT tmbu=4310) ACCURATE CREATININE CLEARANCE IN PREDICTING GLOMERULAR FILTRATION RATE. ESTIMATED GFR IS NOT APPLICABLE FOR DIALYSIS PATIENTS. CBC W/PLT COUNT & AUTO [id number] 05:28:00 Test Item Value Reference Range Comments WHITE BLOOD CELL COUNT (BEAKER) (test lwgi=443) 10.4 K/ L 3.5-10.5 RED BLOOD CELL COUNT (BEAKER) (test rldt=859) 2.75 M/ L 3.93-5.22 HEMOGLOBIN (BEAKER) (test gtil=028) 8.3 GM/DL 11.2-15.7 HEMATOCRIT (BEAKER) (test kjru=176) 26.2 % 34.1-44.9 MEAN CORPUSCULAR VOLUME (BEAKER) (test obxn=840) 95.3 fL 79.4-94.8 MEAN CORPUSCULAR HEMOGLOBIN (BEAKER) (test 30.2 pg 25.6-32.2 spdd=602) MEAN CORPUSCULAR HEMOGLOBIN CONC (BEAKER) (test 31.7 GM/DL 32.2-35.5 nhuu=764) RED CELL DISTRIBUTION WIDTH (BEAKER) (test 15.6 % 11.7-14.4 ukvu=247) PLATELET COUNT (BEAKER) (test nblp=578) 213 K/CU MM 150-450 MEAN PLATELET VOLUME (BEAKER) (test empv=879) 11.4 fL 9.4-12.3 NUCLEATED RED BLOOD CELLS (BEAKER) (test 0 /100 WBC 0-0 awzs=658) NEUTROPHILS RELATIVE PERCENT (BEAKER) (test 59 % lkyy=673) LYMPHOCYTES RELATIVE PERCENT (BEAKER) (test 22 % zuwq=182) MONOCYTES RELATIVE PERCENT (BEAKER) (test 12 % hmke=386) EOSINOPHILS RELATIVE PERCENT (BEAKER) (test 5 % ywov=249) BASOPHILS RELATIVE PERCENT (BEAKER) (test 1 % bzlg=158) NEUTROPHILS ABSOLUTE COUNT (BEAKER) (test 6.17 K/ L 1.56-6.13 beud=847) LYMPHOCYTES ABSOLUTE COUNT (BEAKER) (test 2.26 K/ L 1.18-3.74 onlk=023) MONOCYTES ABSOLUTE COUNT (BEAKER) (test 1.26 K/ L 0.24-0.36 pses=047) EOSINOPHILS ABSOLUTE COUNT (BEAKER) (test 0.52 K/ L 0.04-0.36 toig=349) BASOPHILS ABSOLUTE COUNT (BEAKER) (test 0.05 K/ L 0.01-0.08 rmbu=291) IMMATURE GRANULOCYTES-RELATIVE PERCENT (BEAKER) 1 % 0-1 (test rjlp=5721) CALCIUM, [id number] 06:34:00 Test Item Value Reference Range Comments CALCIUM IONIZED (BEAKER) (test ldov=717) 1.11 mmol/L 1.12-1.27 PH, BLOOD (BEAKER) (test icoo=3992) 7.41 [id number] 05:05:00 Test Item Value Reference Range Comments PHOSPHORUS (BEAKER) (test jfbk=908) 2.9 mg/dL 2.3-4.7 [id number] 05:05:00 Test Item Value Reference Range Comments MAGNESIUM (BEAKER) (test kzgr=764) 1.9 mg/dL 1.6-2.6 BASIC METABOLIC [id number] 05:05:00 Test Item Value Reference Range Comments SODIUM (BEAKER) (test 142 meq/L 136-145 dmdu=882) POTASSIUM (BEAKER) (test 4.0 meq/L 3.5-5.1 pizi=673) CHLORIDE (BEAKER) (test 107 meq/L 98-107 xdes=708) CO2 (BEAKER) (test 30 meq/L 22-29 qqqo=751) BLOOD UREA NITROGEN 19 mg/dL 7-21 (BEAKER) (test latv=397) CREATININE (BEAKER) (test 0.83 mg/dL 0.57-1.25 qvms=276) GLUCOSE RANDOM (BEAKER) 110 mg/dL 70-105 (test malp=706) CALCIUM (BEAKER) (test 8.5 mg/dL 8.4-10.2 feba=106) EGFR (BEAKER) (test 67 mL/min/1.73 sq m ESTIMATED GFR IS NOT ktpg=1968) ACCURATE CREATININE CLEARANCE IN PREDICTING GLOMERULAR FILTRATION RATE. ESTIMATED GFR IS NOT APPLICABLE FOR DIALYSIS PATIENTS. CBC W/PLT COUNT & AUTO [id number] 04:46:00 Test Item Value Reference Range Comments WHITE BLOOD CELL COUNT (BEAKER) (test pdrt=753) 9.6 K/ L 3.5-10.5 RED BLOOD CELL COUNT (BEAKER) (test ntap=728) 2.90 M/ L 3.93-5.22 HEMOGLOBIN (BEAKER) (test qbxl=979) 8.6 GM/DL 11.2-15.7 HEMATOCRIT (BEAKER) (test vlyh=251) 26.9 % 34.1-44.9 MEAN CORPUSCULAR VOLUME (BEAKER) (test gmno=826) 92.8 fL 79.4-94.8 MEAN CORPUSCULAR HEMOGLOBIN (BEAKER) (test 29.7 pg 25.6-32.2 cwds=877) MEAN CORPUSCULAR HEMOGLOBIN CONC (BEAKER) (test 32.0 GM/DL 32.2-35.5 xfhr=430) RED CELL DISTRIBUTION WIDTH (BEAKER) (test 16.0 % 11.7-14.4 giny=296) PLATELET COUNT (BEAKER) (test dqfr=065) 181 K/CU MM 150-450 MEAN PLATELET VOLUME (BEAKER) (test ltvz=158) 11.4 fL 9.4-12.3 NUCLEATED RED BLOOD CELLS (BEAKER) (test 0 /100 WBC 0-0 yfpw=045) NEUTROPHILS RELATIVE PERCENT (BEAKER) (test 69 % eqfg=816) LYMPHOCYTES RELATIVE PERCENT (BEAKER) (test 14 % qhto=804) MONOCYTES RELATIVE PERCENT (BEAKER) (test 12 % ywpi=795) EOSINOPHILS RELATIVE PERCENT (BEAKER) (test 5 % efcv=053) BASOPHILS RELATIVE PERCENT (BEAKER) (test 0 % dqhf=775) NEUTROPHILS ABSOLUTE COUNT (BEAKER) (test 6.59 K/ L 1.56-6.13 dfeb=824) LYMPHOCYTES ABSOLUTE COUNT (BEAKER) (test 1.34 K/ L 1.18-3.74 xuli=854) MONOCYTES ABSOLUTE COUNT (BEAKER) (test 1.11 K/ L 0.24-0.36 uqvf=810) EOSINOPHILS ABSOLUTE COUNT (BEAKER) (test 0.46 K/ L 0.04-0.36 qqxk=053) BASOPHILS ABSOLUTE COUNT (BEAKER) (test 0.03 K/ L 0.01-0.08 egqn=787) IMMATURE GRANULOCYTES-RELATIVE PERCENT (BEAKER) 1 % 0-1 (test bqvx=3207) RAD, CHEST, 1 VIEW, NON [id number] 09:05:00Reason for exam:->s/p surgery/ intubation/CTShould this be performed at the bedside?->YesFINAL REPORT Chest one view compared to May 25, 2017 Discussion : Right chest tube is removed. Left-sided drainage tubes remain. Ill-defined opacities both lung bases are similar. There may be a small right effusion. No pneumothorax. Signed: Franco Wilkinson Verified Date/Time: 05/26/2017 09: 05:29 Reading Location: [facility] Radiology Reading Room POCT- GLUCOSE [id number] 07:34:00 Test Item Value Reference Range Comments POC-GLUCOSE METER (BEAKER) 146 mg/dL 70-110 TESTED AT [address] (test ebxc=7937) [facility] [address] POCT-GLUCOSE [id number] 07:34:00 Test Item Value Reference Range Comments POC-GLUCOSE METER (BEAKER) 130 mg/dL 70-110 TESTED AT [address] (test mqiz=4929) [place] [id number] VITAMIN B12 AND [id number] 07:15:00 Test Item Value Reference Range Comments VITAMIN B12 (BEAKER) (test bxoz=534) 1074 pg/mL 213-816 FOLATE (BEAKER) (test vwli=630) 10.9 ng/mL >=7.0 [id number] 06:44:00 Test Item Value Reference Range Comments MAGNESIUM (BEAKER) (test qyrb=282) 2.4 mg/dL 1.6-2.6 BASIC METABOLIC [id number] 06:44:00 Test Item Value Reference Range Comments SODIUM (BEAKER) (test 139 meq/L 136-145 kiwc=128) POTASSIUM (BEAKER) (test 3.8 meq/L 3.5-5.1 bmpa=739) CHLORIDE (BEAKER) (test 106 meq/L 98-107 yxpf=822) CO2 (BEAKER) (test 27 meq/L 22-29 dvji=591) BLOOD UREA NITROGEN 14 mg/dL 7-21 (BEAKER) (test zhix=957) CREATININE (BEAKER) (test 0.85 mg/dL 0.57-1.25 bjze=381) GLUCOSE RANDOM (BEAKER) 115 mg/dL 70-105 (test wwlh=370) CALCIUM (BEAKER) (test 8.1 mg/dL 8.4-10.2 jgha=959) EGFR (BEAKER) (test 65 mL/min/1.73 sq m ESTIMATED GFR IS NOT ynym=1590) ACCURATE CREATININE CLEARANCE IN PREDICTING GLOMERULAR FILTRATION RATE. ESTIMATED GFR IS NOT APPLICABLE FOR DIALYSIS PATIENTS. CBC W/PLT COUNT & AUTO [id number] 06:15:00 Test Item Value Reference Range Comments WHITE BLOOD CELL COUNT (BEAKER) (test vqav=608) 12.5 K/ L 3.5-10.5 RED BLOOD CELL COUNT (BEAKER) (test lplm=807) 3.12 M/ L 3.93-5.22 HEMOGLOBIN (BEAKER) (test fzie=859) 9.2 GM/DL 11.2-15.7 HEMATOCRIT (BEAKER) (test afxn=907) 29.0 % 34.1-44.9 MEAN CORPUSCULAR VOLUME (BEAKER) (test wjdi=484) 92.9 fL 79.4-94.8 MEAN CORPUSCULAR HEMOGLOBIN (BEAKER) (test 29.5 pg 25.6-32.2 ocbw=661) MEAN CORPUSCULAR HEMOGLOBIN CONC (BEAKER) (test 31.7 GM/DL 32.2-35.5 wklj=841) RED CELL DISTRIBUTION WIDTH (BEAKER) (test 16.5 % 11.7-14.4 esaq=516) PLATELET COUNT (BEAKER) (test fyin=019) 143 K/CU MM 150-450 MEAN PLATELET VOLUME (BEAKER) (test ylky=519) 11.5 fL 9.4-12.3 NUCLEATED RED BLOOD CELLS (BEAKER) (test 0 /100 WBC 0-0 yweq=404) NEUTROPHILS RELATIVE PERCENT (BEAKER) (test 81 % zskz=679) LYMPHOCYTES RELATIVE PERCENT (BEAKER) (test 7 % tdzm=807) MONOCYTES RELATIVE PERCENT (BEAKER) (test 9 % zvyp=031) EOSINOPHILS RELATIVE PERCENT (BEAKER) (test 2 % ywon=324) BASOPHILS RELATIVE PERCENT (BEAKER) (test 0 % qezx=636) NEUTROPHILS ABSOLUTE COUNT (BEAKER) (test 10.13 K/ L 1.56-6.13 uwdq=689) LYMPHOCYTES ABSOLUTE COUNT (BEAKER) (test 0.87 K/ L 1.18-3.74 amdr=027) MONOCYTES ABSOLUTE COUNT (BEAKER) (test 1.15 K/ L 0.24-0.36 uasq=241) EOSINOPHILS ABSOLUTE COUNT (BEAKER) (test 0.25 K/ L 0.04-0.36 mopq=198) BASOPHILS ABSOLUTE COUNT (BEAKER) (test 0.04 K/ L 0.01-0.08 eamf=560) IMMATURE GRANULOCYTES-RELATIVE PERCENT (BEAKER) 1 % 0-1 (test melr=2041) CALCIUM, [id number] 06:10:00 Test Item Value Reference Range Comments CALCIUM IONIZED (BEAKER) (test epmi=126) 1.07 mmol/L 1.12-1.27 PH, BLOOD (BEAKER) (test marj=9322) 7.34 [id number] 17:12:00 Test Item Value Reference Range Comments POTASSIUM (BEAKER) (test lros=866) 3.7 meq/L 3.5-5.1 [id number] 17:12:00 Test Item Value Reference Range Comments MAGNESIUM (BEAKER) (test drbi=377) 1.9 mg/dL 1.6-2.6 RAD, CHEST, 1 VIEW, NON [id number] 09:40:00Reason for exam:->s/p surgery/ intubation/CTShould this be performed at the bedside?->YesFINAL REPORT Chest one view INDICATION: Status post surgery, intubation COMPARISON: 05/24/2017 IMPRESSION: ET and NG tube have been removed. The remaining support devices are stable. Median sternotomy changes are noted. The cardiac mediastinal contours are partially obscured but stable. Lung volumes have decreased with greater central pulmonary vascular congestion and mildly increased basilar opacities which could reflect worsening atelectasis. Pneumonitis should be excluded clinically. Dependent pleural effusions remain present. No pneumothorax is seen. Signed: Cristopher Dawkins MDReport Verified Date/Time: 05/25/2017 09:40:39 Reading Location: [facility] Neuro ReadingRoom BRONCHIAL CULTURE + GRAM [id number] 09:36:00 Test Item Value Reference Range Comments CULTURE (BEAKER) (test <1+ Normal respiratory eugenio toyo=0854) present GRAM STAIN RESULT (BEAKER) 1+ WBCs (test ktbi=0154) GRAM STAIN RESULT (BEAKER) No organisms seen (test kncr=64015) SPUTUM CULTURE + GRAM [id number] 09:18:00 Test Item Value Reference Range Comments CULTURE (BEAKER) (test 2+ Normal respiratory eugenio bzvt=0391) present GRAM STAIN RESULT (BEAKER) 3+ WBCs (test aurb=9711) GRAM STAIN RESULT (BEAKER) 0-5 epithelial cells (test efmf=27472) GRAM STAIN RESULT (BEAKER) <1+ gram positive cocci in pairs (test srvv=90883) CALCIUM, [id number] 04:00:00 Test Item Value Reference Range Comments CALCIUM IONIZED (BEAKER) (test uwnt=343) 1.10 mmol/L 1.12-1.27 PH, BLOOD (BEAKER) (test vqkd=2426) 7.36 OXYGEN SATURATION, [id number] 03:59:00 Test Item Value Reference Range Comments O2 SATURATION (MEASURED) (BEAKER) (test kcfd=0128) 67.2 % BASIC METABOLIC [id number] 03:53:00 Test Item Value Reference Range Comments SODIUM (BEAKER) (test 139 meq/L 136-145 chkq=524) POTASSIUM (BEAKER) (test 4.0 meq/L 3.5-5.1 lcyi=578) CHLORIDE (BEAKER) (test 111 meq/L 98-107 njmh=644) CO2 (BEAKER) (test 23 meq/L 22-29 qyqu=691) BLOOD UREA NITROGEN 15 mg/dL 7-21 (BEAKER) (test cpki=160) CREATININE (BEAKER) (test 0.81 mg/dL 0.57-1.25 ivdg=036) GLUCOSE RANDOM (BEAKER) 114 mg/dL 70-105 (test cojn=840) CALCIUM (BEAKER) (test 7.7 mg/dL 8.4-10.2 npur=167) EGFR (BEAKER) (test 69 mL/min/1.73 sq m ESTIMATED GFR IS NOT bnjc=1011) ACCURATE CREATININE CLEARANCE IN PREDICTING GLOMERULAR FILTRATION RATE. ESTIMATED GFR IS NOT APPLICABLE FOR DIALYSIS PATIENTS. [id number] 03:51:00 Test Item Value Reference Range Comments PHOSPHORUS (BEAKER) (test wwkc=385) 2.7 mg/dL 2.3-4.7 [id number] 03:51:00 Test Item Value Reference Range Comments MAGNESIUM (BEAKER) (test hwpr=630) 2.1 mg/dL 1.6-2.6 CBC W/PLT COUNT & AUTO [id number] 03:33:00 Test Item Value Reference Range Comments WHITE BLOOD CELL COUNT (BEAKER) (test iolk=637) 10.3 K/ L 3.5-10.5 RED BLOOD CELL COUNT (BEAKER) (test vzwt=609) 2.67 M/ L 3.93-5.22 HEMOGLOBIN (BEAKER) (test jkxs=147) 8.0 GM/DL 11.2-15.7 HEMATOCRIT (BEAKER) (test kbkj=751) 24.2 % 34.1-44.9 MEAN CORPUSCULAR VOLUME (BEAKER) (test hfss=874) 90.6 fL 79.4-94.8 MEAN CORPUSCULAR HEMOGLOBIN (BEAKER) (test 30.0 pg 25.6-32.2 qdjk=802) MEAN CORPUSCULAR HEMOGLOBIN CONC (BEAKER) (test 33.1 GM/DL 32.2-35.5 zhzt=825) RED CELL DISTRIBUTION WIDTH (BEAKER) (test 17.1 % 11.7-14.4 ghif=084) PLATELET COUNT (BEAKER) (test gzjf=878) 112 K/CU MM 150-450 MEAN PLATELET VOLUME (BEAKER) (test zack=137) 11.0 fL 9.4-12.3 NUCLEATED RED BLOOD CELLS (BEAKER) (test 0 /100 WBC 0-0 luwc=102) NEUTROPHILS RELATIVE PERCENT (BEAKER) (test 76 % fhyg=860) LYMPHOCYTES RELATIVE PERCENT (BEAKER) (test 12 % dqgw=832) MONOCYTES RELATIVE PERCENT (BEAKER) (test 10 % fmuo=431) EOSINOPHILS RELATIVE PERCENT (BEAKER) (test 2 % pbfp=485) BASOPHILS RELATIVE PERCENT (BEAKER) (test 0 % nazn=706) NEUTROPHILS ABSOLUTE COUNT (BEAKER) (test 7.84 K/ L 1.56-6.13 tliz=897) LYMPHOCYTES ABSOLUTE COUNT (BEAKER) (test 1.25 K/ L 1.18-3.74 wosh=847) MONOCYTES ABSOLUTE COUNT (BEAKER) (test 1.03 K/ L 0.24-0.36 chkd=173) EOSINOPHILS ABSOLUTE COUNT (BEAKER) (test 0.16 K/ L 0.04-0.36 okul=091) BASOPHILS ABSOLUTE COUNT (BEAKER) (test 0.02 K/ L 0.01-0.08 tlcu=028) IMMATURE GRANULOCYTES-RELATIVE PERCENT (BEAKER) 0 % 0-1 (test guyu=6800) RAD, CHEST, 1 VIEW, NON [id number] 07:24:00Reason for exam:->s/p surgery/ intubation/CTShould this be performed at the bedside?->YesFINAL REPORT Chest, one view. HISTORY: Postop COMPARISON: 05/23/2017 IMPRESSION: Supporting hardware unchanged in position. No pneumothorax. Trace left pleural effusion. Mild interstitial edema. Unchanged enlargement of the cardiomediastinal silhouette. Mild left basilar atelectasis. Signed: Roberto [facility]amercy [facility], [facility] Verified Date/Time: 05/24/2017 07:24:37 Reading Location: [facility] [id number] CT Body Reading Room LACTIC ACID, ARTERIAL, WHOLE [id number] 05:44:00 Test Item Value Reference Range Comments LACTATE BLOOD ARTERIAL (2) (BEAKER) (test 1.8 mmol/L 0.5-2.2 avwq=4618) Effective 01/10/2016: Units/Reference Range ChangeNew: 0.5-2.2 mmol/L Previous: 5 -20 mg/dLBASIC METABOLIC [id number] 05:42:00 Test Item Value Reference Range Comments SODIUM (BEAKER) (test 142 meq/L 136-145 oenv=592) POTASSIUM (BEAKER) (test 4.9 meq/L 3.5-5.1 cifk=787) CHLORIDE (BEAKER) (test 116 meq/L 98-107 xivw=863) CO2 (BEAKER) (test 20 meq/L 22-29 xsdu=522) BLOOD UREA NITROGEN 21 mg/dL 7-21 (BEAKER) (test tqqz=617) CREATININE (BEAKER) (test 1.05 mg/dL 0.57-1.25 ssih=208) GLUCOSE RANDOM (BEAKER) 140 mg/dL 70-105 (test ognn=451) CALCIUM (BEAKER) (test 7.4 mg/dL 8.4-10.2 xpvc=751) EGFR (BEAKER) (test 51 mL/min/1.73 sq m ESTIMATED GFR IS NOT mjbo=7477) ACCURATE CREATININE CLEARANCE IN PREDICTING GLOMERULAR FILTRATION RATE. ESTIMATED GFR IS NOT APPLICABLE FOR DIALYSIS PATIENTS. BLOOD GAS, [id number] 05:34:00 Test Item Value Reference Range Comments PH ARTERIAL (BEAKER) (test irkb=281) 7.33 7.35-7.45 PCO2 ARTERIAL (BEAKER) (test bupv=632) 41 mmHg 35-45 PO2 ARTERIAL (BEAKER) (test ajdy=572) 102 mmHg 80-90 O2 SATURATION ARTERIAL (BEAKER) (test edpl=688) 97.3 % 96.0-97.0 HCO3 ARTERIAL (BEAKER) (test yoza=416) 21 mmol/L 21-29 BASE EXCESS ARTERIAL (BEAKER) (test gjnc=131) -4.3 mmol/L -2.0-3.0 PATIENT TEMPERATURE (BEAKER) (test uboa=7365) 37.0 C [id number] 05:28:00 Test Item Value Reference Range Comments PHOSPHORUS (BEAKER) (test xhnz=040) 4.7 mg/dL 2.3-4.7 [id number] 05:28:00 Test Item Value Reference Range Comments MAGNESIUM (BEAKER) (test eqni=820) 2.3 mg/dL 1.6-2.6 OXYGEN SATURATION, [id number] 05:13:00 Test Item Value Reference Range Comments O2 SATURATION (MEASURED) (BEAKER) (test cvsj=8556) 66.1 % CALCIUM, [id number] 05:13:00 Test Item Value Reference Range Comments CALCIUM IONIZED (BEAKER) (test ksye=633) 1.08 mmol/L 1.12-1.27 PH, BLOOD (BEAKER) (test ukvb=9955) 7.29 CBC W/PLT COUNT & AUTO [id number] 05:11:00 Test Item Value Reference Range Comments WHITE BLOOD CELL COUNT (BEAKER) (test htjr=856) 9.6 K/ L 3.5-10.5 RED BLOOD CELL COUNT (BEAKER) (test wdop=294) 2.92 M/ L 3.93-5.22 HEMOGLOBIN (BEAKER) (test kbba=900) 8.6 GM/DL 11.2-15.7 HEMATOCRIT (BEAKER) (test qzaj=317) 26.2 % 34.1-44.9 MEAN CORPUSCULAR VOLUME (BEAKER) (test ifbv=112) 89.7 fL 79.4-94.8 MEAN CORPUSCULAR HEMOGLOBIN (BEAKER) (test 29.5 pg 25.6-32.2 trlt=910) MEAN CORPUSCULAR HEMOGLOBIN CONC (BEAKER) (test 32.8 GM/DL 32.2-35.5 yjue=666) RED CELL DISTRIBUTION WIDTH (BEAKER) (test 16.3 % 11.7-14.4 zkma=110) PLATELET COUNT (BEAKER) (test mbje=286) 140 K/CU MM 150-450 MEAN PLATELET VOLUME (BEAKER) (test lbpg=472) 10.3 fL 9.4-12.3 NUCLEATED RED BLOOD CELLS (BEAKER) (test 0 /100 WBC 0-0 tvks=159) NEUTROPHILS RELATIVE PERCENT (BEAKER) (test 78 % qlhp=285) LYMPHOCYTES RELATIVE PERCENT (BEAKER) (test 9 % jjmw=277) MONOCYTES RELATIVE PERCENT (BEAKER) (test 12 % qlhy=106) EOSINOPHILS RELATIVE PERCENT (BEAKER) (test 0 % csfi=024) BASOPHILS RELATIVE PERCENT (BEAKER) (test 0 % mnch=497) NEUTROPHILS ABSOLUTE COUNT (BEAKER) (test 7.53 K/ L 1.56-6.13 bvum=645) LYMPHOCYTES ABSOLUTE COUNT (BEAKER) (test 0.86 K/ L 1.18-3.74 pndx=020) MONOCYTES ABSOLUTE COUNT (BEAKER) (test 1.14 K/ L 0.24-0.36 vdes=650) EOSINOPHILS ABSOLUTE COUNT (BEAKER) (test 0.02 K/ L 0.04-0.36 iaoq=356) BASOPHILS ABSOLUTE COUNT (BEAKER) (test 0.03 K/ L 0.01-0.08 dccs=757) IMMATURE GRANULOCYTES-RELATIVE PERCENT (BEAKER) 1 % 0-1 (test xluw=8657) BLOOD GAS, [id number] 23:38:00 Test Item Value Reference Range Comments PH ARTERIAL (BEAKER) (test afwo=511) 7.34 7.35-7.45 PCO2 ARTERIAL (BEAKER) (test wfao=353) 43 mmHg 35-45 PO2 ARTERIAL (BEAKER) (test bncx=452) 98 mmHg 80-90 O2 SATURATION ARTERIAL (BEAKER) (test rbcn=066) 96.6 % 96.0-97.0 HCO3 ARTERIAL (BEAKER) (test fggq=813) 22 mmol/L 21-29 BASE EXCESS ARTERIAL (BEAKER) (test jigw=054) -2.8 mmol/L -2.0-3.0 PATIENT TEMPERATURE (BEAKER) (test vtud=8605) 38.5 C FIO2 (BEAKER) (test atdc=4475) 40.0 % HEMOGLOBIN AND [id number] 23:38:00 Test Item Value Reference Range Comments HEMOGLOBIN (BEAKER) (test bmlt=496) 7.6 g/dL 12.0-15.0 HEMATOCRIT (BEAKER) (test qaci=409) 22.0 % 36.0-45.0 Done at stat lab.BLOOD GAS, [id number] 16:58:00 Test Item Value Reference Range Comments PH ARTERIAL (BEAKER) (test suqa=389) 7.36 7.35-7.45 PCO2 ARTERIAL (BEAKER) (test munk=430) 38 mmHg 35-45 PO2 ARTERIAL (BEAKER) (test dvjo=089) 103 mmHg 80-90 O2 SATURATION ARTERIAL (BEAKER) (test twrv=317) 97.5 % 96.0-97.0 HCO3 ARTERIAL (BEAKER) (test qivw=436) 21 mmol/L 21-29 BASE EXCESS ARTERIAL (BEAKER) (test hfio=001) -4.5 mmol/L -2.0-3.0 PATIENT TEMPERATURE (BEAKER) (test ltxs=9942) 37.0 C FIO2 (BEAKER) (test nomx=0524) 50.0 % GLUCOSE-STAT [id number] 16:58:00 Test Item Value Reference Range Comments GLUCOSE RANDOM (BEAKER) (test ytdk=495) 168 mg/dL 70-110 BLOOD GAS, [id number] 16:24:00 Test Item Value Reference Range Comments PH ARTERIAL (BEAKER) (test rvvs=555) 7.34 7.35-7.45 PCO2 ARTERIAL (BEAKER) (test cicb=860) 40 mmHg 35-45 PO2 ARTERIAL (BEAKER) (test epic=805) 39 mmHg 80-90 O2 SATURATION ARTERIAL (BEAKER) (test qaxd=649) 72.7 % 96.0-97.0 HCO3 ARTERIAL (BEAKER) (test jsfv=712) 21 mmol/L 21-29 BASE EXCESS ARTERIAL (BEAKER) (test suqn=538) -4.5 mmol/L -2.0-3.0 PATIENT TEMPERATURE (BEAKER) (test dqcl=9937) 36.4 C FIO2 (BEAKER) (test imbh=1010) 40.0 % CBC W/PLT COUNT & AUTO [id number] 15:55:00 Test Item Value Reference Range Comments WHITE BLOOD CELL COUNT 17.4 K/ L 3.5-10.5 (BEAKER) (test iwmg=828) RED BLOOD CELL COUNT (BEAKER) 2.94 M/ L 3.93-5.22 (test yzte=223) HEMOGLOBIN (BEAKER) (test 8.8 GM/DL 11.2-15.7 dgpn=805) HEMATOCRIT (BEAKER) (test 26.4 % 34.1-44.9 jcqp=656) MEAN CORPUSCULAR VOLUME 89.8 fL 79.4-94.8 Discordant result compared (BEAKER) (test fslr=835) to previous result; clinical correlation required. MEAN CORPUSCULAR HEMOGLOBIN 29.9 pg 25.6-32.2 (BEAKER) (test gnom=741) MEAN CORPUSCULAR HEMOGLOBIN 33.3 GM/DL 32.2-35.5 CONC (BEAKER) (test bswb=279) RED CELL DISTRIBUTION WIDTH 15.8 % 11.7-14.4 (BEAKER) (test dbqk=073) PLATELET COUNT (BEAKER) (test 167 K/CU MM 150-450 oupw=748) MEAN PLATELET VOLUME (BEAKER) 9.1 fL 9.4-12.3 (test czue=880) NUCLEATED RED BLOOD CELLS 0 /100 WBC 0-0 (BEAKER) (test lilr=632) NEUTROPHILS RELATIVE PERCENT 83 % (BEAKER) (test zwmu=423) LYMPHOCYTES RELATIVE PERCENT 10 % (BEAKER) (test byqb=597) MONOCYTES RELATIVE PERCENT 5 % (BEAKER) (test obzy=776) EOSINOPHILS RELATIVE PERCENT 0 % (BEAKER) (test jlfu=020) BASOPHILS RELATIVE PERCENT 0 % (BEAKER) (test rkvo=429) NEUTROPHILS ABSOLUTE COUNT 14.43 K/ L 1.56-6.13 (BEAKER) (test teaq=575) LYMPHOCYTES ABSOLUTE COUNT 1.78 K/ L 1.18-3.74 (BEAKER) (test gidx=126) MONOCYTES ABSOLUTE COUNT 0.91 K/ L 0.24-0.36 (BEAKER) (test przp=880) EOSINOPHILS ABSOLUTE COUNT 0.05 K/ L 0.04-0.36 (BEAKER) (test wnzr=319) BASOPHILS ABSOLUTE COUNT 0.03 K/ L 0.01-0.08 (BEAKER) (test ceaq=116) IMMATURE 1 % 0-1 GRANULOCYTES-RELATIVE PERCENT (BEAKER) (test gcmy=0928) RAD, CHEST, 1 VIEW, NON [id number] 15:35:00Reason for exam:->immediate post cardiothoracic surgery/intubationShould this be performed at thebedside?-& gt;YesFINAL REPORT Chest one view compared to May 22, 2017 Discussion: Sternal wires, multiple drainage tubes, patchy basilar atelectasis are noted. Upper lungs are unremarkable.No effusion or pneumothorax. ET tube, NG tube, right IJ line in apparent good position. IMPRESSIONS:Postoperative chest with bilateral atelectasis. Signed: Franco Wilkinson Verified Date/Time: 05/23/2017 15:35:23 Reading Location: [address] Consult Reading Room THROMBOELASTOGRAPH (TEG)2017-05-23 15:00:00 Test Item Value Reference Range Comments TEG ACTIVATED CLOTTING TIME (BEAKER) (test 5.6 minutes 4.0-7.0 khdm=5313) TEG FIBRINOGEN ACTIVITY (BEAKER) (test 70.5 degrees 61.0-73.0 hjam=5952) TEG PLT. AGGREGATION (BEAKER) (test muxu=6240) 46.6 MM 55.0-65.0 TEG FIBRINOLYSIS (BEAKER) (test ydya=2782) 22.6 % 0.0-5.0 TGH ACTIVATED CLOTTING TIME (BEAKER) (test 6.2 minutes 4.0-7.0 xyfa=9279) TGH FIBRINOGEN ACTIVITY (BEAKER) (test 72.7 degrees 61.0-73.0 fnqu=9487) TGH PLT. AGGREGATION (BEAKER) (test dzvz=6287) 63.0 MM 55.0-65.0 TGH FIBRINOLYSIS (BEAKER) (test mpho=6148) 0.0 % 0.0-5.0 BASIC METABOLIC [id number] 14:05:00 Test Item Value Reference Range Comments SODIUM (BEAKER) (test 142 meq/L 136-145 reno=579) POTASSIUM (BEAKER) (test 4.4 meq/L 3.5-5.1 Specimen slightly bgpf=393) hemolyzed CHLORIDE (BEAKER) (test 114 meq/L 98-107 aiti=993) CO2 (BEAKER) (test 21 meq/L 22-29 xudp=109) BLOOD UREA NITROGEN 19 mg/dL 7-21 (BEAKER) (test vuwx=656) CREATININE (BEAKER) (test 0.86 mg/dL 0.57-1.25 Specimen slightly mjnj=822) hemolyzed GLUCOSE RANDOM (BEAKER) 107 mg/dL 70-105 (test ugow=179) CALCIUM (BEAKER) (test 8.4 mg/dL 8.4-10.2 xvyu=369) EGFR (BEAKER) (test 64 mL/min/1.73 sq m ESTIMATED GFR IS NOT wnga=1082) ACCURATE CREATININE CLEARANCE IN PREDICTING GLOMERULAR FILTRATION RATE. ESTIMATED GFR IS NOT APPLICABLE FOR DIALYSIS PATIENTS. LACTIC ACID, ARTERIAL, WHOLE [id number] 14:01:00 Test Item Value Reference Range Comments LACTATE BLOOD ARTERIAL (2) 2.1 mmol/L 0.5-2.2 Specimen slightly hemolyzed (BEAKER) (test ymwg=1229) Effective 01/10/2016: Units/Reference Range ChangeNew: 0.5-2.2 mmol/L Previous: 5 -20 mg/dLGLUCOSE-STAT [id number] 13:42:00 Test Item Value Reference Range Comments GLUCOSE RANDOM (BEAKER) (test hagl=956) 105 mg/dL 70-110 SODIUM NA-STAT [id number] 13:42:00 Test Item Value Reference Range Comments SODIUM (BEAKER) (test zxzf=459) 137 meq/L 135-148 POTASSIUM-STAT [id number] 13:42:00 Test Item Value Reference Range Comments POTASSIUM (BEAKER) (test taib=733) 4.2 meq/L 3.6-5.5 BLOOD GAS, [id number] 13:42:00 Test Item Value Reference Range Comments PH ARTERIAL (BEAKER) (test wzrh=848) 7.41 7.35-7.45 PCO2 ARTERIAL (BEAKER) (test yzoa=569) 33 mmHg 35-45 PO2 ARTERIAL (BEAKER) (test moaf=716) 53 mmHg 80-90 O2 SATURATION ARTERIAL (BEAKER) (test gbio=563) 91.8 % 96.0-97.0 HCO3 ARTERIAL (BEAKER) (test cjxt=468) 21 mmol/L 21-29 BASE EXCESS ARTERIAL (BEAKER) (test ijcv=558) -3.7 mmol/L -2.0-3.0 PATIENT TEMPERATURE (BEAKER) (test ykgk=4715) 34.4 C FIO2 (BEAKER) (test twuj=9715) 60.0 % HGB/HCT (H&H) - STAT [id number] 13:42:00 Test Item Value Reference Range Comments HEMOGLOBIN (BEAKER) (test mgpc=864) 9.1 g/dL 12.0-15.0 HEMATOCRIT (BEAKER) (test agrz=118) 27.0 % 36.0-45.0 CALCIUM, [id number] 13:42:00 Test Item Value Reference Range Comments CALCIUM IONIZED (BEAKER) (test jphy=075) 1.17 mmol/L 1.12-1.27 PH, BLOOD (BEAKER) (test gvbh=6828) 7.37 OXYGEN SATURATION, [id number] 13:41:00 Test Item Value Reference Range Comments O2 SATURATION (MEASURED) (BEAKER) (test wizw=4125) 53.2 % [id number] 13:02:00 Test Item Value Reference Range Comments ACTIVATED CLOTTING TIME 109 sec TESTED AT [place] [address] [facility] (BEAKER) (test oydc=103) [place] [address] [id number] 13:02:00 Test Item Value Reference Range Comments ACTIVATED CLOTTING TIME 543 sec TESTED AT [place] [address] [facility] (BEAKER) (test nubi=263) [place] [address] [id number] 13:02:00 Test Item Value Reference Range Comments ACTIVATED CLOTTING TIME 477 sec TESTED AT [place] [address] [facility] (BEAKER) (test cspb=432) [place] [address] [id number] 13:02:00 Test Item Value Reference Range Comments ACTIVATED CLOTTING TIME 538 sec [facility] [place] [address] [facility] (test ajfp=623) [place] [address] [id number] 13:02:00 Test Item Value Reference Range Comments ACTIVATED CLOTTING TIME 610 sec TESTED AT [place] [address] [facility] (BEAKER) (test ujhq=191) [place] [address] [id number] 13:02:00 Test Item Value Reference Range Comments ACTIVATED CLOTTING TIME 367 sec TESTED AT [address] (BEAKER) (test fdtn=695) [place] [address] [id number] 13:02:00 Test Item Value Reference Range Comments ACTIVATED CLOTTING TIME 516 sec TESTED AT [address] (BEAKER) (test hmvc=666) [place] [address] BLOOD GAS, [id number] 12:22:00 Test Item Value Reference Range Comments PH ARTERIAL (BEAKER) (test hbiu=587) 7.29 7.35-7.45 PCO2 ARTERIAL (BEAKER) (test bwks=179) 42 mmHg 35-45 PO2 ARTERIAL (BEAKER) (test vnwy=736) 138 mmHg 80-90 O2 SATURATION ARTERIAL (BEAKER) (test yudy=954) 98.6 % 96.0-97.0 HCO3 ARTERIAL (BEAKER) (test hobf=219) 20 mmol/L 21-29 BASE EXCESS ARTERIAL (BEAKER) (test kvyb=269) -6.6 mmol/L -2.0-3.0 PATIENT TEMPERATURE (BEAKER) (test srci=2598) 35.3 C FIO2 (BEAKER) (test kccv=1206) 100.0 % GLUCOSE-STAT [id number] 12:22:00 Test Item Value Reference Range Comments GLUCOSE RANDOM (BEAKER) (test tcae=030) 141 mg/dL 70-110 HGB/HCT (H&H) - STAT [id number] 12:22:00 Test Item Value Reference Range Comments HEMOGLOBIN (BEAKER) (test xlym=716) 8.6 g/dL 12.0-15.0 HEMATOCRIT (BEAKER) (test gdrm=966) 25.0 % 36.0-45.0 SODIUM NA-STAT [id number] 12:19:00 Test Item Value Reference Range Comments SODIUM (BEAKER) (test ofvn=258) 137 meq/L 135-148 POTASSIUM-STAT [id number] 12:19:00 Test Item Value Reference Range Comments POTASSIUM (BEAKER) (test hmqn=741) 4.5 meq/L 3.6-5.5 SODIUM NA-STAT [id number] 11:50:00 Test Item Value Reference Range Comments SODIUM (BEAKER) (test emgs=510) 135 meq/L 135-148 POTASSIUM-STAT [id number] 11:50:00 Test Item Value Reference Range Comments POTASSIUM (BEAKER) (test vmgn=556) 5.1 meq/L 3.6-5.5 BLOOD GAS, [id number] 11:50:00 Test Item Value Reference Range Comments PH ARTERIAL (BEAKER) (test doko=823) 7.33 7.35-7.45 PCO2 ARTERIAL (BEAKER) (test likd=945) 41 mmHg 35-45 PO2 ARTERIAL (BEAKER) (test udld=868) 124 mmHg 80-90 O2 SATURATION ARTERIAL (BEAKER) (test kbkc=845) 98.3 % 96.0-97.0 HCO3 ARTERIAL (BEAKER) (test vawt=523) 21 mmol/L 21-29 BASE EXCESS ARTERIAL (BEAKER) (test gqlt=816) -4.6 mmol/L -2.0-3.0 PATIENT TEMPERATURE (BEAKER) (test tytv=5095) 36.0 C FIO2 (BEAKER) (test xzyk=6261) 100.0 % GLUCOSE-STAT [id number] 11:50:00 Test Item Value Reference Range Comments GLUCOSE RANDOM (BEAKER) (test mypo=196) 131 mg/dL 70-110 HGB/HCT (H&H) - STAT [id number] 11:50:00 Test Item Value Reference Range Comments HEMOGLOBIN (BEAKER) (test ngcz=810) 6.7 g/dL 12.0-15.0 HEMATOCRIT (BEAKER) (test bbkg=424) 20.0 % 36.0-45.0 CALCIUM, [id number] 11:50:00 Test Item Value Reference Range Comments CALCIUM IONIZED (BEAKER) (test snes=764) 1.19 mmol/L 1.12-1.27 PH, BLOOD (BEAKER) (test mnwe=8511) 7.32 BLOOD GAS, [id number] 11:13:00 Test Item Value Reference Range Comments PH ARTERIAL (BEAKER) (test ixms=924) 7.37 7.35-7.45 PCO2 ARTERIAL (BEAKER) (test gmrd=216) 40 mmHg 35-45 PO2 ARTERIAL (BEAKER) (test ywwl=376) 332 mmHg 80-90 O2 SATURATION ARTERIAL (BEAKER) (test bldh=460) 99.7 % 96.0-97.0 HCO3 ARTERIAL (BEAKER) (test tnuc=383) 23 mmol/L 21-29 BASE EXCESS ARTERIAL (BEAKER) (test jxyc=984) -2.0 mmol/L -2.0-3.0 PATIENT TEMPERATURE (BEAKER) (test fejo=5734) 36.5 C FIO2 (BEAKER) (test wlzq=1665) 70.0 % GLUCOSE-STAT [id number] 11:13:00 Test Item Value Reference Range Comments GLUCOSE RANDOM (BEAKER) (test egsc=028) 142 mg/dL 70-110 HGB/HCT (H&H) - STAT [id number] 11:13:00 Test Item Value Reference Range Comments HEMOGLOBIN (BEAKER) (test smmj=358) 6.7 g/dL 12.0-15.0 HEMATOCRIT (BEAKER) (test pfha=317) 20.0 % 36.0-45.0 POTASSIUM-STAT [id number] 11:13:00 Test Item Value Reference Range Comments POTASSIUM (BEAKER) (test kylv=889) 6.0 meq/L 3.6-5.5 SODIUM NA-STAT [id number] 11:12:00 Test Item Value Reference Range Comments SODIUM (BEAKER) (test jozz=107) 135 meq/L 135-148 POTASSIUM-STAT [id number] 10:57:00 Test Item Value Reference Range Comments POTASSIUM (BEAKER) (test hjgs=515) 5.5 meq/L 3.6-5.5 BLOOD GAS, [id number] 10:57:00 Test Item Value Reference Range Comments PH ARTERIAL (BEAKER) (test gtjy=699) 7.35 7.35-7.45 PCO2 ARTERIAL (BEAKER) (test xjjj=503) 42 mmHg 35-45 PO2 ARTERIAL (BEAKER) (test xbft=939) 375 mmHg 80-90 O2 SATURATION ARTERIAL (BEAKER) (test wlba=931) 99.8 % 96.0-97.0 HCO3 ARTERIAL (BEAKER) (test alna=879) 23 mmol/L 21-29 BASE EXCESS ARTERIAL (BEAKER) (test mbmq=926) -2.8 mmol/L -2.0-3.0 PATIENT TEMPERATURE (BEAKER) (test fkpt=1042) 36.5 C FIO2 (BEAKER) (test vwwa=7681) 70.0 % SODIUM NA-STAT [id number] 10:57:00 Test Item Value Reference Range Comments SODIUM (BEAKER) (test ntse=836) 134 meq/L 135-148 GLUCOSE-STAT [id number] 10:57:00 Test Item Value Reference Range Comments GLUCOSE RANDOM (BEAKER) (test hkgr=643) 153 mg/dL 70-110 HGB/HCT (H&H) - STAT [id number] 10:57:00 Test Item Value Reference Range Comments HEMOGLOBIN (BEAKER) (test fazn=107) 7.3 g/dL 12.0-15.0 HEMATOCRIT (BEAKER) (test pqja=605) 21.0 % 36.0-45.0 BLOOD GAS, [id number] 10:31:00 Test Item Value Reference Range Comments PH ARTERIAL (BEAKER) (test njvu=547) 7.48 7.35-7.45 PCO2 ARTERIAL (BEAKER) (test guvg=931) 33 mmHg 35-45 PO2 ARTERIAL (BEAKER) (test daji=173) 324 mmHg 80-90 O2 SATURATION ARTERIAL (BEAKER) (test zrzl=928) 99.8 % 96.0-97.0 HCO3 ARTERIAL (BEAKER) (test xwbv=963) 25 mmol/L 21-29 BASE EXCESS ARTERIAL (BEAKER) (test npvq=429) 0.5 mmol/L -2.0-3.0 PATIENT TEMPERATURE (BEAKER) (test nurr=5364) 34.2 C FIO2 (BEAKER) (test garu=9006) 70.0 % SODIUM NA-STAT [id number] 10:31:00 Test Item Value Reference Range Comments SODIUM (BEAKER) (test vnet=368) 134 meq/L 135-148 POTASSIUM-STAT [id number] 10:31:00 Test Item Value Reference Range Comments POTASSIUM (BEAKER) (test rrwq=632) 5.6 meq/L 3.6-5.5 GLUCOSE-STAT [id number] 10:31:00 Test Item Value Reference Range Comments GLUCOSE RANDOM (BEAKER) (test qcdu=069) 166 mg/dL 70-110 HGB/HCT (H&H) - STAT [id number] 10:31:00 Test Item Value Reference Range Comments HEMOGLOBIN (BEAKER) (test aoqd=047) 6.5 g/dL 12.0-15.0 HEMATOCRIT (BEAKER) (test jfqa=762) 19.0 % 36.0-45.0 BLOOD GAS, [id number] 10:06:00 Test Item Value Reference Range Comments PH VENOUS (BEAKER) (test fmaf=667) 7.32 7.32-7.42 PCO2 VENOUS (BEAKER) (test eilw=092) 44 mmHg 41-51 PO2 VENOUS (BEAKER) (test kbak=581) 41 mmHg 25-40 O2 SATURATION VENOUS (BEAKER) (test xxpg=511) 80.5 % 40.0-70.0 HCO3 VENOUS (BEAKER) (test pwxu=820) 23 mmol/L 21-29 BASE EXCESS VENOUS (BEAKER) (test xogj=022) -3.6 mmol/L -2.0-3.0 PATIENT TEMPERATURE (BEAKER) (test slml=2503) 34.0 C FIO2 (BEAKER) (test fvzb=4741) 80.0 % BLOOD GAS, [id number] 10:06:00 Test Item Value Reference Range Comments PH ARTERIAL (BEAKER) (test vsbo=664) 7.38 7.35-7.45 PCO2 ARTERIAL (BEAKER) (test oirc=753) 35 mmHg 35-45 PO2 ARTERIAL (BEAKER) (test fqrs=473) 548 mmHg 80-90 O2 SATURATION ARTERIAL (BEAKER) (test ymto=794) 99.9 % 96.0-97.0 HCO3 ARTERIAL (BEAKER) (test bemv=146) 21 mmol/L 21-29 BASE EXCESS ARTERIAL (BEAKER) (test ibiu=096) -4.5 mmol/L -2.0-3.0 PATIENT TEMPERATURE (BEAKER) (test inoi=2789) 34.0 C FIO2 (BEAKER) (test fhhy=5083) 80.0 % SODIUM NA-STAT [id number] 10:06:00 Test Item Value Reference Range Comments SODIUM (BEAKER) (test vgpr=998) 131 meq/L 135-148 HGB/HCT (H&H) - STAT [id number] 10:06:00 Test Item Value Reference Range Comments HEMOGLOBIN (BEAKER) (test fwkz=943) 5.3 g/dL 12.0-15.0 HEMATOCRIT (BEAKER) (test cpfh=753) 16.0 % 36.0-45.0 POTASSIUM-STAT [id number] 10:05:00 Test Item Value Reference Range Comments POTASSIUM (BEAKER) (test gdzn=590) 4.5 meq/L 3.6-5.5 GLUCOSE-STAT [id number] 10:05:00 Test Item Value Reference Range Comments GLUCOSE RANDOM (BEAKER) (test rmbm=949) 169 mg/dL 70-110 BLOOD GAS, [id number] 08:10:00 Test Item Value Reference Range Comments PH ARTERIAL (BEAKER) (test enap=244) 7.42 7.35-7.45 PCO2 ARTERIAL (BEAKER) (test yjnl=359) 39 mmHg 35-45 PO2 ARTERIAL (BEAKER) (test aabz=458) 454 mmHg 80-90 O2 SATURATION ARTERIAL (BEAKER) (test miwx=729) 99.9 % 96.0-97.0 HCO3 ARTERIAL (BEAKER) (test csnu=864) 25 mmol/L 21-29 BASE EXCESS ARTERIAL (BEAKER) (test quzz=594) 0.5 mmol/L -2.0-3.0 PATIENT TEMPERATURE (BEAKER) (test igqi=5243) 37.0 C FIO2 (BEAKER) (test mbpy=1887) 87.0 % GLUCOSE-STAT [id number] 08:10:00 Test Item Value Reference Range Comments GLUCOSE RANDOM (BEAKER) (test muys=127) 113 mg/dL 70-110 HGB/HCT (H&H) - STAT [id number] 08:10:00 Test Item Value Reference Range Comments HEMOGLOBIN (BEAKER) (test gsjf=760) 9.1 g/dL 12.0-15.0 HEMATOCRIT (BEAKER) (test rpsc=538) 27.0 % 36.0-45.0 SODIUM NA-STAT [id number] 08:09:00 Test Item Value Reference Range Comments SODIUM (BEAKER) (test cwzs=606) 138 meq/L 135-148 POTASSIUM-STAT [id number] 08:09:00 Test Item Value Reference Range Comments POTASSIUM (BEAKER) (test wyyz=985) 4.1 meq/L 3.6-5.5 CALCIUM, [id number] 08:09:00 Test Item Value Reference Range Comments CALCIUM IONIZED (BEAKER) (test rqma=633) 1.13 mmol/L 1.12-1.27 PH, BLOOD (BEAKER) (test fzbi=1533) 7.42 TROPONIN [id number] 04:51:00 Test Item Value Reference Range Comments TROPONIN I (BEAKER) (test oqwi=021) 0.78 ng/mL 0.00-0.03 Troponin I (TnI) levels must be interpreted [...] failure, acidosis, acute neurological disease, and persistent tachyarrhythmia.BASIC METABOLIC [id number] 04:48:00 Test Item Value Reference Range Comments SODIUM (BEAKER) (test 139 meq/L 136-145 qimp=940) POTASSIUM (BEAKER) (test 4.7 meq/L 3.5-5.1 ojve=800) CHLORIDE (BEAKER) (test 110 meq/L 98-107 onrv=282) CO2 (BEAKER) (test 22 meq/L 22-29 jzjq=490) BLOOD UREA NITROGEN 24 mg/dL 7-21 (BEAKER) (test rlxx=052) CREATININE (BEAKER) (test 1.01 mg/dL 0.57-1.25 fkzw=801) GLUCOSE RANDOM (BEAKER) 119 mg/dL 70-105 (test llme=407) CALCIUM (BEAKER) (test 8.7 mg/dL 8.4-10.2 cxvt=869) EGFR (BEAKER) (test 53 mL/min/1.73 sq m ESTIMATED GFR IS NOT jafx=7085) ACCURATE CREATININE CLEARANCE IN PREDICTING GLOMERULAR FILTRATION RATE. ESTIMATED GFR IS NOT APPLICABLE FOR DIALYSIS PATIENTS. CREATINE KINASE (CK), TOTAL AND [id number] 04:46:00 Test Item Value Reference Range Comments CREATINE KINASE TOTAL (BEAKER) (test voup=374) 65 U/L 29-200 CREATINE KINASE-MB (BEAKER) (test ydtz=457) 2.1 ng/mL 0.0-6.6 CREATINE KINASE-MB INDEX (BEAKER) (test fuhe=056) 3.2 % CK-MB Reference Range:<6.7 Normal6.7-10.0 Borderline>10.0 AbnormalCBC W/PLT COUNT & AUTO [id number] 04:20:00 Test Item Value Reference Range Comments WHITE BLOOD CELL COUNT (BEAKER) (test hktd=850) 19.7 K/ L 3.5-10.5 RED BLOOD CELL COUNT (BEAKER) (test yjzb=999) 2.77 M/ L 3.93-5.22 HEMOGLOBIN (BEAKER) (test qaqh=326) 8.4 GM/DL 11.2-15.7 HEMATOCRIT (BEAKER) (test zyfu=533) 26.8 % 34.1-44.9 MEAN CORPUSCULAR VOLUME (BEAKER) (test aato=644) 96.8 fL 79.4-94.8 MEAN CORPUSCULAR HEMOGLOBIN (BEAKER) (test 30.3 pg 25.6-32.2 qdru=666) MEAN CORPUSCULAR HEMOGLOBIN CONC (BEAKER) (test 31.3 GM/DL 32.2-35.5 ihzh=667) RED CELL DISTRIBUTION WIDTH (BEAKER) (test 14.2 % 11.7-14.4 pbph=064) PLATELET COUNT (BEAKER) (test iueo=167) 169 K/CU MM 150-450 MEAN PLATELET VOLUME (BEAKER) (test xazg=725) 12.9 fL 9.4-12.3 NUCLEATED RED BLOOD CELLS (BEAKER) (test 0 /100 WBC 0-0 baoh=232) NEUTROPHILS RELATIVE PERCENT (BEAKER) (test 83 % psgm=562) LYMPHOCYTES RELATIVE PERCENT (BEAKER) (test 9 % ufyr=572) MONOCYTES RELATIVE PERCENT (BEAKER) (test 7 % kmub=166) EOSINOPHILS RELATIVE PERCENT (BEAKER) (test 0 % gzxa=333) BASOPHILS RELATIVE PERCENT (BEAKER) (test 0 % rhoj=077) NEUTROPHILS ABSOLUTE COUNT (BEAKER) (test 16.40 K/ L 1.56-6.13 rxuj=849) LYMPHOCYTES ABSOLUTE COUNT (BEAKER) (test 1.84 K/ L 1.18-3.74 allx=915) MONOCYTES ABSOLUTE COUNT (BEAKER) (test 1.29 K/ L 0.24-0.36 iqnk=688) EOSINOPHILS ABSOLUTE COUNT (BEAKER) (test 0.00 K/ L 0.04-0.36 maum=135) BASOPHILS ABSOLUTE COUNT (BEAKER) (test 0.02 K/ L 0.01-0.08 rqqr=054) IMMATURE GRANULOCYTES-RELATIVE PERCENT (BEAKER) 1 % 0-1 (test bvuk=7007) [id number] 04:14:00 Test Item Value Reference Range Comments PARTIAL THROMBOPLASTIN TIME (BEAKER) (test 74.8 seconds 22.5-36.0 duvy=590) HEMOGLOBIN [id number] 21:12:00 Test Item Value Reference Range Comments HEMOGLOBIN A1C (BEAKER) (test acpw=898) 6.0 % 4.3-6.1 [id number] 19:53:00 Test Item Value Reference Range Comments FERRITIN (BEAKER) (test bcxb=335) 58 ng/mL 5-275 TROPONIN [id number] 19:49:00 Test Item Value Reference Range Comments TROPONIN I (BEAKER) (test maej=551) 0.69 ng/mL 0.00-0.03 Troponin I (TnI) levels must be interpreted [...] failure, acidosis, acute neurological disease, and persistent tachyarrhythmia.B-TYPE NATRIURETIC FACTOR (BNP) 19:36:00 Test Item Value Reference Range Comments B-TYPE NATRIURETIC PEPTIDE (BEAKER) (test 202 pg/mL 0-100 eyxq=037) IRON, TIBC, % SAT. (WITHOUT FERRITIN)[id number] 19:32:00 Test Item Value Reference Range Comments IRON (BEAKER) (test jvbw=948) 36 ug/dL 40-160 TOTAL IRON BINDING CAPACITY (BEAKER) (test 365 ug/dL 250-450 xtcl=490) IRON % SATURATION (2) (BEAKER) (test pclz=5210) 10 % 20-55 LIPID [id number] 19:30:00 Test Item Value Reference Range Comments TRIGLYCERIDES (BEAKER) (test tnkz=134) 86 mg/dL CHOLESTEROL (BEAKER) (test tshc=051) 114 mg/dL HDL CHOLESTEROL (BEAKER) (test jseu=548) 40 mg/dL LDL CHOLESTEROL CALCULATED (BEAKER) (test 57 mg/dL xaqm=920) Triglyceride Reference Range: Low Risk <150 Borderline 150- 199 High Risk 200-499 Very High Risk >=500Cholesterol Reference Range: Low Risk <200 Borderline 200-239 High Risk > 240HDL Cholesterol Reference Range: Low Risk >=60 High Risk <40LDL Cholesterol Reference Range: Optimal <100 Near Optimal 100-129 Borderline 130-159 High 160-189 Very High >=190BASIC METABOLIC [id number] 19:30:00 Test Item Value Reference Range Comments SODIUM (BEAKER) (test 138 meq/L 136-145 pnfm=433) POTASSIUM (BEAKER) (test 4.5 meq/L 3.5-5.1 myvc=011) CHLORIDE (BEAKER) (test 108 meq/L 98-107 rhpl=105) CO2 (BEAKER) (test 21 meq/L 22-29 phhj=650) BLOOD UREA NITROGEN 23 mg/dL 7-21 (BEAKER) (test hhhv=377) CREATININE (BEAKER) (test 1.05 mg/dL 0.57-1.25 sxmx=718) GLUCOSE RANDOM (BEAKER) 195 mg/dL 70-105 (test ragv=051) CALCIUM (BEAKER) (test 8.9 mg/dL 8.4-10.2 qkaj=297) EGFR (BEAKER) (test 51 mL/min/1.73 sq m ESTIMATED GFR IS NOT uqvg=4876) ACCURATE CREATININE CLEARANCE IN PREDICTING GLOMERULAR FILTRATION RATE. ESTIMATED GFR IS NOT APPLICABLE FOR DIALYSIS PATIENTS. RAD, CHEST, 1 VIEW, NON [id number] 19:30:00Reason for exam:->chest painShould this be performed at the bedside?->YesFINAL REPORT History: Chest pain. Comparison: None. Findings: A single view of the chest is submitted. The cardiac silhouette is within normal limits for size. There is atherosclerotic calcification of the tortuous aorta. There is no focal consolidation, pneumothorax, large pleural effusion or evidence of overt pulmonary edema. There is no acute bony abnormality. Signed: Bear [place] Verified Date/Time: 05/22/2017 19:30:20 Reading Location: [address] Reading Room [id number] 19:26:00 Test Item Value Reference Range Comments PARTIAL THROMBOPLASTIN TIME (BEAKER) (test 27.3 seconds 22.5-36.0 konn=614) PROTHROMBIN TIME/[id number] 19:25:00 Test Item Value Reference Range Comments PROTIME (BEAKER) (test odwc=652) 14.3 seconds 11.7-14.7 INR (BEAKER) (test cmpm=439) 1.1 <=5.9 RECOMMENDED COUMADIN/WARFARIN INR THERAPY RANGESSTANDARD DOSE: 2.0 - 3.0 Includes: PROPHYLAXIS forvenous thrombosis, systemic embolization; TREATMENT for venous thrombosis and/or pulmonary embolus.HIGH RISK: Target INR is 2.5-3.5 for patients with mechanical heart valves.POCT-GLUCOSE [id number] 19:10:00 Test Item Value Reference Range Comments POC-GLUCOSE METER (JARRETT) 231 mg/dL 70-110 TESTED AT [facility] [address] [facility] (test pqdm=0378) [facility] [id number]
--- NOTE | 2018-01-12 15:55 | EDPHYS ---
Physician Documentation [facility] Name: Maricel Guerrero Age: 77 yrs Sex: Female : 1940 Arrival Date: 01/12/2018 Time: 13:26 Bed 16 Private MD: Dayanara Lester ED Physician Antonio Milligan HPI: 01/12 15:44 This 77 yrs old Female presents to ER via Ambulatory with complaints of Tube gs site bleeding. 15:44 Patient presents to ED for recheck of: pelvic drain with bleeding small amount noted by gs daughter when changing dressing. The affected area is on the buttocks. The patient has not experienced similar symptoms in the past. The patient has not recently seen a physician, had drained placed for presumed diverticular abscess. Historical: - Allergies: 13:32 Iodine; hj - Home Meds: 13:35 albuterol INH [Active]; aspirin 81 mg Oral TbEC 1 tab once daily [Active]; atorvastatin hj 20 mg oral tab 1 tab once daily [Active]; Calcium Carbonate Oral 5000 mg daily [Active]; clopidogrel 75 mg Oral tab 1 tab once daily [Active]; escitalopram oxalate 10 mg Oral tab 1 tab once daily [Active]; furosemide 20 mg Oral tab 1 tab once daily [Active]; Hemocyte-Plus 106 mg iron- 1 mg Oral cap 1 cap once daily [Active]; megestrol 40 mg Oral tab 1 tab 2 times per day [Active]; metformin 500 mg Oral tab 1 tab 2 times per day [Active]; metoprolol succinate XL 25 mg 1 tab daily daily [Active]; multivitamin with minerals Oral tab daily [Active]; nicotine 21 mg/24 hr TD pt24 [Active]; nitroglycerin 0.4 mg Oral as needed [Active]; Zofran (as hydrochloride) 4 mg Oral tab every 8 hours [Active]; zolpidem 5 mg Oral tab 1 tab as needed [Active]; - PMHx: 13:32 AAA; Colon Cancer with metastasis to liver; Diabetes - NIDDM; Headaches; Hypertension; hj - PSHx: 13:32 tube placement; Heart Surgery; hip; hj - Immunization history:: Adult Immunizations up to date. - Social history:: Smoking status: Patient/guardian denies using tobacco. ROS: 15:44 All other systems are negative. gs Exam: 15:44 Eyes: Pupils equal round and reactive to light, extra-ocular motions intact. Lids and gs lashes normal. Conjunctiva and sclera are non-icteric and not injected. Cornea within normal limits. Periorbital areas with no swelling, redness, or edema. ENT: Nares patent. No nasal discharge, no septal abnormalities noted. Tympanic membranes are normal and external auditory canals are clear. Oropharynx with no redness, swelling, or masses, exudates, or evidence of obstruction, uvula midline. Mucous membranes moist. Chest/axilla: Normal chest wall appearance and motion. Nontender with no deformity. No lesions are appreciated. Cardiovascular: Regular rate and rhythm with a normal S1 and S2. No gallops, murmurs, or rubs. Normal PMI, no JVD. No pulse deficits. Respiratory: Lungs have equal breath sounds bilaterally, clear to auscultation and percussion. No rales, rhonchi or wheezes noted. No increased work of breathing, no retractions or nasal flaring. Abdomen/GI: Soft, non-tender, with normal bowel sounds. No distension or tympany. No guarding or rebound. No evidence of tenderness throughout. Back: No spinal tenderness. No costovertebral tenderness. Full range of motion. Skin: Warm, dry with normal turgor. Normal color with no rashes, no lesions, and no evidence of cellulitis. MS/ Extremity: Pulses equal, no cyanosis. Neurovascular intact. Full, normal range of motion. 15:44 Constitutional: The patient appears alert, awake. 15:44 Back: left buttock insertion site clean, no blood in drain tube or bulb.. 15:44 Skin: cellulitis, is not appreciated. Vital Signs: 13:35 BP 116 / 59; Pulse 63; Resp 18; Temp 97.4; Pulse Ox 97% on R/A; Weight 52.16 kg; Height 5 ft. 4 in. (162.56 cm); Pain 0/10; 14:45 BP 116 / 61; Pulse 60; Resp 18; Pulse Ox 97% on R/A; Pain 0/10; em 15:45 BP 129 / 67; Pulse 58; Resp 14; Pulse Ox 97% on R/A; em 13:35 Body Mass Index 19.74 (52.16 kg, 162.56 cm) MDM: 14:23 Patient medically screened. 15:44 Data reviewed: vital signs, nurses notes. 15:55 Physician consultation: and will see patient in office, next week, dr briones. Administered Medications: No medications were administered Disposition: 01/12/18 15:55 Discharged to Home. Impression: Encounter for attention to dressings, sutures and drains. - Condition is Stable. - Discharge Instructions: Percutaneous Abscess Drain. - Medication Reconciliation Form, Thank You Letter, Antibiotic Education, Prescription Opioid Use form. - Follow up: Private Physician; When: 2 - 3 days; Reason: Re-evaluation by your physician. Signatures: Tunde Mullins LVN LVN em Joaquin, Henry, RN RN hj Starr, Gregory, MD MD gs Corrections: (The following items were deleted from the chart) 16:26 15:55 01/12/2018 15:55 Discharged to Home. Impression: Encounter for attention to em dressings, sutures and drains. Condition is Stable. Forms are Medication Reconciliation Form, Thank You Letter, Antibiotic Education, Prescription Opioid Use. Follow up: Private Physician; When: 2 - 3 days; Reason: Re-evaluation by your physician.
--- NOTE | 2018-01-12 15:55 | ER ---
Nurse's Notes [facility] Name: Maricel Guerrero Age: 77 yrs Sex: Female : 1940 Arrival Date: 01/12/2018 Time: 13:26 Bed 16 Private MD: Dayanara Lester Diagnosis: Encounter for attention to dressings, sutures and drains Presentation: 01/12 13:28 Presenting complaint: Patient states: Memorakaitlin Rex placed a tube on my stomach for hj drainage last November the ; they havent done the colon surgery yet; i went drain it today and now when i drain it today theres blood on the drainage; denies fever and chills;. Transition of care: patient was not received from another setting of care. Onset of symptoms was January 12, 2018. Initial Sepsis Screen: Does the patient meet any 2 criteria? No. Patient's initial sepsis screen is negative. Does the patient have a suspected source of infection? No. Patient's initial sepsis screen is negative. Care prior to arrival: None. 13:28 Method Of Arrival: Ambulatory 13:28 Acuity: WILL 3 Triage Assessment: 13:35 General: Appears in no apparent distress. uncomfortable, Behavior is calm, cooperative, hj appropriate for age. Pain: Denies pain. Historical: - Allergies: 13:32 Iodine; hj - Home Meds: 13:35 albuterol INH [Active]; aspirin 81 mg Oral TbEC 1 tab once daily [Active]; atorvastatin hj 20 mg oral tab 1 tab once daily [Active]; Calcium Carbonate Oral 5000 mg daily [Active]; clopidogrel 75 mg Oral tab 1 tab once daily [Active]; escitalopram oxalate 10 mg Oral tab 1 tab once daily [Active]; furosemide 20 mg Oral tab 1 tab once daily [Active]; Hemocyte-Plus 106 mg iron- 1 mg Oral cap 1 cap once daily [Active]; megestrol 40 mg Oral tab 1 tab 2 times per day [Active]; metformin 500 mg Oral tab 1 tab 2 times per day [Active]; metoprolol succinate XL 25 mg 1 tab daily daily [Active]; multivitamin with minerals Oral tab daily [Active]; nicotine 21 mg/24 hr TD pt24 [Active]; nitroglycerin 0.4 mg Oral as needed [Active]; Zofran (as hydrochloride) 4 mg Oral tab every 8 hours [Active]; zolpidem 5 mg Oral tab 1 tab as needed [Active]; - PMHx: 13:32 AAA; Colon Cancer with metastasis to liver; Diabetes - NIDDM; Headaches; Hypertension; hj - PSHx: 13:32 tube placement; Heart Surgery; hip; hj - Immunization history:: Adult Immunizations up to date. - Social history:: Smoking status: Patient/guardian denies using tobacco. Screenin:55 Abuse screen: Denies threats or abuse. Nutritional screening: No deficits noted. em Tuberculosis screening: No symptoms or risk factors identified. Fall Risk None identified. Assessment: 14:20 General: Appears in no apparent distress. comfortable, Behavior is calm, cooperative. em General: Denies fever, pelvic tube placed in November to drain before she can have colon surgery. Pain: Denies pain. Neuro: Level of Consciousness is awake, alert, obeys commands, Oriented to person, place, time, situation. Cardiovascular: Capillary refill < 3 seconds Patient's skin is warm and dry. Respiratory: Airway is patent Respiratory effort is even, unlabored, Respiratory pattern is regular, symmetrical. GI: pelvic tube in place noted to the left lower back, daughter states there was small amount of blood in tube but it has resolved. : No signs and/or symptoms were reported regarding the genitourinary system. Derm: Skin is intact, Skin is pink, warm \T\ dry. Musculoskeletal: Range of motion: intact in all extremities. 14:39 Reassessment: I agree with above assessment by Tunde Mullins LVN. iw 15:05 Reassessment: Patient appears in no apparent distress at this time. awaiting pt doctor em to return Dr. Milligan phone call. 15:47 Reassessment: Patient appears in no apparent distress at this time. Patient and/or em family updated on plan of care and expected duration. Pain level reassessed. Patient is alert, oriented x 3, equal unlabored respirations, skin warm/dry/pink. Vital Signs: 13:35 BP 116 / 59; Pulse 63; Resp 18; Temp 97.4; Pulse Ox 97% on R/A; Weight 52.16 kg; Height hj 5 ft. 4 in. (162.56 cm); Pain 0/10; 14:45 BP 116 / 61; Pulse 60; Resp 18; Pulse Ox 97% on R/A; Pain 0/10; em 15:45 BP 129 / 67; Pulse 58; Resp 14; Pulse Ox 97% on R/A; em 13:35 Body Mass Index 19.74 (52.16 kg, 162.56 cm) ED Course: 13:26 Patient arrived in ED. mr 13:26 Trevon Dayanara is Private Physician. mr 13:31 Triage completed. hj 13:37 Arm band placed on left wrist. 14:07 Antonio Milligan MD is Attending Physician. gs 14:35 Tunde Mullins LVN is Primary Nurse. em 14:55 Patient has correct armband on for positive identification. Bed in low position. Call em light in reach. Adult w/ patient. 14:55 No provider procedures requiring assistance completed. Patient did not have IV access em during this emergency room visit. Administered Medications: No medications were administered Outcome: 15:55 Discharge ordered by MD. gs 16:25 Discharged to home via wheelchair. em 16:25 Condition: good 16:25 Discharge instructions given to patient, family. 16:25 Instructed on discharge instructions, follow up and referral plans. Demonstrated em understanding of instructions, follow-up care. 16:26 Patient left the ED. em Signatures: Cassidy Casey mr Tunde Mullins LVN LVN em Katey Piedra RN RN Jhony Pop RN RN Antonio Milligan MD MD Corrections: (The following items were deleted from the chart) 13:38 13:35 Pulse 63bpm; Resp 18bpm; Pulse Ox 97% RA; Temp 97.4F; 52.16 kg; Height 5 ft. 4 in.; BMI: 19.7; Pain 0/10;
[2018-01-12 16:30] VITALS: TEMP 97.4; O2SAT 97
[2018-01-12 16:32] VITALS: BP 129/67
== END 2018-01-12 16:26 | disposition home or self-care (01) ==
LOC: ER 13:22
DX: Z48.03 Encounter for change or removal of drains (principal); I10 Essential (primary) hypertension; E11.9 Type 2 diabetes mellitus without complications; Z79.82 Long term (current) use of aspirin; Z85.038 Personal history of other malignant neoplasm of large intestine; Z85.05 Personal history of malignant neoplasm of liver; Z91.048 Other nonmedicinal substance allergy status
CPT/HCPCS: 99281

== ENCOUNTER 2018-11-09 09:43 | Emergency (ER) | payer OTHER ==
--- OUTSIDE RECORDS SUMMARY | 2018-11-09 09:45 | XMS REPORT | Clinical Summary ---
:1940 Author Organization [facility] Address [address] [place] [id number] Care Team Providers Name Role Phone Asked, No Pcp Primary Care Provider Unavailable Allergies Active Allergy Reactions Severity Noted Date Comments Azithromycin Iodine 11/10/2017 Iodine And Iodide Containing Hives 05/22/1977 Pt does eat shrimps and Products other seafood. Medications Medication Sig Dispensed Refills Start Date End Date Status aspirin (ECOTRIN) 81 MG Take 81 mg by 0 12/16/2016 Active enteric coated tablet mouth. Active Problems No known active problems Encounters Date Type Specialty Care Team Description 11/02/2018 Office Visit General Surgery Alagugurusamy, Colon stricture (HCC ) [place] (Primary Dx) GUILLERMO Canseco 10/20/2018 Orders Only General Surgery Dominik Reynaga MD 07/14/2018 Office Visit General Surgery Dominik Reynaga Encounter for smoking cessation counseling (Primary Dx); MD Chucky Encounter for pre-operative respiratory clearance 05/15/2018 Office Visit General Surgery Dominik Reynaga Diverticulitis of large intestine without bleeding, unspecified complication status (Primary Dx); MD Chucky Abdominal pain, generalized 11/10/2017 Emergency Emergency Medicine 11/10/2017 Hospital Encounter Radiology [place], [place] Abdominal pain, unspecified abdominal location; MD Grant Mass of colon after 11/08/2017 Social History Tobacco Use Types Packs/Day Years Used Date Current Every Day Smoker 1 Smokeless Tobacco: Never Used Alcohol Use Drinks/Week oz/Week Comments No Sex Assigned at Date Recorded Not on file Job Start Date Occupation Industry Not on file Not on file Not on file Travel History Travel Start Travel End No recent travel history available. Last Filed Vital Signs Vital Sign Reading Time Taken Blood Pressure 101/60 11/02/2018 1:06 PM [employer]GG [employer] Pulse 55 11/02/2018 1:06 PM [employer] Temperature 36.8 C (98.3 F) 07/14/2018 12:54 PM EGG [employer]ER Respiratory Rate - - Oxygen Saturation 95% 11/10/2017 1:12 PM EGG P[employer]ER Inhaled Oxygen Concentration - - Weight 51.7 kg (114 lb) 05/15/2018 10:52 AM CDT Height 162.6 cm (5' 4") 05/15/2018 10:52 AM CDT Body Mass Index 19.57 05/15/2018 10:52 AM CDT Plan of Treatment Date Type Specialty Care Team Description 11/10/2018 Pre-Admit Testing Pre-Admission Dominik Reynaga Appointment Testing MD Chucky [address] [place] [address] [place] [address] [phone] 11/11/2018 Office Visit General Surgery Dominik Reynaga MD [address] [facility] [address] [place] [address] [phone] 11/18/2018 Hospital Encounter General Surgery Dominik Reynaga MD [address] [facility] [address] [place] [address] [phone] 11/18/2018 Surgery General Surgery Dominik Reynaga ROBOTIC ASSISTED MD Chucky LAPAROSCOPIC LOW [address] [facility] [place] [address] [place] [address] [phone] Health Maintenance Due Date Last Done Comments SHINGLES VACCINES (#1) 1990 65+ PNEUMOCOCCAL VACCINE (1 of 2 - PCV13) 2005 PNEUMOCOCCAL POLYSACCHARIDE VACCINE AGE 65 AND OVER 2005 INFLUENZA VACCINE 04/08/2018 Procedures Procedure Name Priority Date/Time Associated Diagnosis Comments FL COLON BARIUM Routine 11/10/2017 12:41 PM Abdominal pain, Results for this [facility] [employer] unspecified procedure are in abdominal location the results Mass of colon section. after 11/08/2017 Results FL Colon Barium Enema (11/10/2017 12:41 PM EGG PACKER) Narrative Performed At EXAMINATION:FL COLON BARIUM [facility] CLINICAL HISTORY:R10.9 Unspecified abdominal pain, K63.9 Disease [...] of 2 fluoroscopic spot images obtained. FINDINGS: Materials And Processes Manager image demonstrates nonobstructive bowel gas pattern. Atherosclerotic calcification. A right hip arthroplasty. There appears to be subtotal colectomy with a primary anastomosis to the rectum, though this could represent nondistended sigmoid colon. Evaluation is limited due to underdistention and only a small amount of contrast able to be administered. Of note however there is no contrast extravasation to indicate leak. IMPRESSION: Limited exam as detailed above. Possible distal colonic anastomosis. [facility]-[id number] Procedure Note Interface, Radiology Results Incoming - 11/10/2017 4:18 PM EGG PACKER EXAMINATION: FL COLON BARIUM ENEMA CLINICAL HISTORY: [...] of 2 fluoroscopic spot images obtained. FINDINGS: Materials And Processes Manager image demonstrates nonobstructive bowel gas pattern. Atherosclerotic [...] as detailed above. Possible distal colonic anastomosis. [facility]-[id number] Performing Organization Address City/State/Zipcode Phone Number [facility] [address] [place] [address] after 11/08/2017 Insurance Payer Benefit Plan / Group Subscriber ID Type Phone Address MEDICARE MEDICARE PART A AND B xxxxxxxxxx Medicare [place], [place] [employer] xxxxxxxxx Advance Directives Patient has advance care planning documents on file. For more information, please contact:Alonzo Davis[address] [place] [address]
--- OUTSIDE RECORDS SUMMARY | 2018-11-09 09:45 | XMS REPORT | Clinical Summary ---
:1940 Author Organization [facility] Address [address] [place] [address] Care Team Providers Name Role Phone Marley Primary Care Provider Lester Patel Unavailable Allergies Active Allergy Reactions Severity Noted Date Comments Iodine And Iodide Containing Hives 05/22/1977 Pt does eat shrimps and Products other seafood. Medications Medication Sig Dispensed Refills Start Date End Date Status aspirin 81 MG EC Take 81 mg by 0 Active tablet mouth daily. atorvastatin (LIPITOR) Take 40 mg by 0 Active 40 MG tablet mouth daily. calcium Take 1 tablet by 0 Active carbonate-vitamin D3 mouth 2 (two) (CALCIUM-VITAMIN D) times daily with 500 mg(1,250mg) -200 breakfast and unit per tablet dinner. donepezil (ARICEPT) 10 Take 10 mg by 0 Active MG tablet mouth nightly. metFORMIN (GLUCOPHAGE) Take 500 mg by 0 Active 500 MG tablet mouth 2 (two) times daily with breakfast and dinner. albuterol HFA Inhale 1 puff by 0 Active (VENTOLIN HFA) 90 mouth via inhaler mcg/actuation inhaler every 6 (six) hours as needed for Wheezing (SOB). nicotine (NICODERM CQ) Place 1 patch onto 0 Active 21 mg/24 hr patch the skin daily. nitroglycerin Place 0.4 mg under 0 Active (NITROSTAT) 0.4 MG SL the tongue every 5 tablet (five) minutes as needed for Chest pain Put 1 pill under tongue every 5min as needed for chest pain.No more than 3 doses in 15min.Call 911 if pain is unrelieved 5min after 1st dose . metoprolol (TOPROL-XL) TAKE 1/2 45 tablet 0 05/29/2017 Active 25 MG 24 hr tablet TABLET(12.5 MG) BY MOUTH DAILY lisinopril TAKE 1 TABLET(2.5 90 tablet 0 05/29/2017 Active (PRINIVIL,ZESTRIL) 2.5 MG) BY MOUTH DAILY MG tablet clopidogrel (PLAVIX) TAKE 1 TABLET BY 90 tablet 0 05/29/2017 Active 75 mg tablet MOUTH DAILY. HYDROcodone-acetaminop Take 1 tablet by 0 Active hen (NORCO 10-325) mouth every 6 10-325 mg per tablet (six) hours as needed for Pain. multivitamin per Take 1 tablet by 0 Active tablet mouth daily. lisinopril TAKE 1 TABLET(2.5 30 tablet 0 06/19/2017 Active (PRINIVIL,ZESTRIL) 2.5 MG) BY MOUTH DAILY MG tablet metoprolol (TOPROL-XL) TAKE 1/2 30 tablet 0 07/25/2017 Active 25 MG 24 hr tablet TABLET(12.5 MG) BY MOUTH DAILY Active Problems Problem Noted Date Diabetes mellitus 05/25/2017 Acute pulmonary insufficiency following thoracic surgery 05/24/2017 Encephalopathy acute 05/24/2017 Cardiogenic shock 05/24/2017 COPD (chronic obstructive pulmonary disease) 05/24/2017 Hyperchloremic metabolic acidosis 05/24/2017 Acute blood loss anemia 05/24/2017 Acute respiratory insufficiency, postoperative 05/23/2017 Hypoxemia 05/23/2017 Hemoptysis 05/23/2017 NSTEMI (non-ST elevated myocardial infarction) 05/22/2017 Family History Medical History Relation Name Comments [...] travel history available. Last Filed Vital Signs Not on file Plan of Treatment Health Maintenance Due Date Last Done Comments INFLUENZA VACCINE 06/08/2018 Results Not on fileafter 11/08/2017 Insurance Payer Benefit Plan / Group Subscriber ID Type Phone Address MEDICARE MEDICARE A B xxxxxxxxxx Medicare FOR LIFE xxxxxxxxx Other Govt (, [place], [facility], etc.) Advance Directives For more information, please contact:[address] [phone] Code Status Date Activated Date Inactivated Comments Full Code 05/22/2017 5:29 PM 05/28/2017 5:07 PM This code status was determined by: Patient Name Relationship Healthcare Agent Relationship Phone Sindy Iraheta Sister First alternate healthcare agent [phone]
--- OUTSIDE RECORDS SUMMARY | 2018-11-09 09:52 | XMS REPORT | Continuity of Care Document ---
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 inflammatory 18 Medical disease, Center unspecified PELVIC ABSCESS Active 11/27/19 [place] [address] [facility] COLON CA Active 11/27/19 [place] [address] [facility] Perforation of 11/21/19 10/08/2018 [facility] intestine Medical Center GI BLEED Active 11/11/19 [place] [address] [facility] DIVERTICULITIS Active 11/11/[address] Center Diverticulosis of 11/09/19 02/04/2018 [facility] large intestine Medical without Center perforation or abscess without bleeding ABNORMAL IMAGING Active 10/29/19 [place] [address] [facility] Center Encounter for Active 08/04/20 Finding 08/12/[address] [facility] [place] Hip fracture Active 07/29/20 Finding 08/12/[address] [facility] Fracture of hip Active 07/29/20 Finding 08/12/[address] [facility] [place] Diarrhea Resolved 07/01/20 Finding 08/12/[address] [facility] [place] Intractable nausea Resolved 07/01/20 Finding 08/12/[address] [facility] [address] [facility] [place] Diverticulitis Active 06/24/20 Finding 08/12/[address] [facility] [address] [facility] perforation or [place] abscess w/o bleeding Liver metastases Active 06/24/20 Finding 08/12/[address] [facility] NSTEMI Active 05/22/20 Finding 08/12/[address] [facility] Diabetes mellitus Active 05/22/20 Finding 08/12/[address] [facility] CAD Active 05/22/20 Finding 08/12/[address] [facility] Anemia Active 05/22/20 Finding 08/12/[address] [facility] Hyperlipidemia Active 05/22/20 Finding 08/12/[address] [facility] Tobacco abuse Active 05/22/20 Finding 08/12/[address] [facility] COPD Active 05/22/20 Finding 08/12/[address] [facility] GERD Active 05/22/20 Finding 08/12/[address] [facility] Chest pain Active 05/22/20 Finding 08/12/[address] [facility] Nicotine Active Finding 08/12/[address] [facility] Leukocytosis Active Finding 08/12/[address] [facility] [facility] Acute metabolic Active Finding 08/12/2017 [facility] [place]an encephalopathy [facility] Hypertension Active Problem 02/28/2018 [facility] MottMadeline Zandra De LeonM H [facility] Essential 03/08/2018 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 mellitus without Medical complications Center Unspecified 02/04/2018 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 [facility] Hypothyroidism Active Problem 10/08/2018 [facility] Liver lesion Active Problem 10/08/2018 [facility] Diabetes mellitus Active Problem 10/08/2018 [facility], type II, non [place] insulin dependent Medical Center Acute kidney 03/08/2018 [facility] failure, Medical unspecified Center Hyperlipidemia, [facility] [place] Hypothyroidism, 10/08/2018 [facility] [place] unspecified Medical Center Nicotine 03/08/2018 [facility] dependence, Medical unspecified, Center uncomplicated Liver disease, 10/08/2018 [facility] unspecified Medical Center Elevated white 10/08/2018 [facility] blood cell count, Medical unspecified Center residential use of 03/08/2018 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 infection, site Medical not specified Center Unspecified 10/08/2018 [facility] protein-calorie Medical malnutrition Center Type 2 diabetes 10/08/2018 [facility] mellitus with Medical diabetic chronic Center kidney disease Emphysema, 10/08/2018 [facility] unspecified Medical Center Anemia, 10/08/2018 [facility] unspecified Medical Center Unspecified 10/08/2018 [facility] dementia without Medical behavioral Center disturbance Chronic kidney 10/08/2018 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 aspirin Medical Center Personal history 10/08/2018 [facility] of other diseases Medical of the circulatory Center system Body mass index 10/08/2018 [facility] 21.0-21.9, adult Medical Center FEMALE PELVIC Active [facility] INFLAMMATORY Medical DISEASE, UNSP Center DVTRCLI OF INTEST, Active [facility] PART UNSP, W/O Medical PERF O Center Medications Medication Details Route Status Patient Ordering Order Source Instructions Provider Date GoLYTELY oral See Active 02/24/ [facility] powder for Instructions, 2017 reconstitution Take as directed by physician. Give Jug., # 1 ea, 0 Refill(s), Pharmacy: [facility] [id number] ciprofloxacin 500 500 mg=1 tab, No Longer 11/30/ [place] mg oral tablet PO, Q12H, X 8 Active 2017 Medical day, # 16 Center tab, 0 Refill(s) Metronidazole 500 500 mg=1 tab, No Longer 11/30/ [place] MG Oral Tablet PO, TID, X 8 Active 2018 Medical day, # 24 Center tab, 0 Refill(s) Metronidazole 500 500 mg=1 tab, Inactive 11/30[facility] [place] MG Oral Tablet PO, TID, X 8 2018 Medical day, # 24 Center tab, 0 Refill(s) ciprofloxacin 500 500 mg=1 tab, Inactive 11/30[facility] [place] mg oral tablet PO, Q12H, X 8 2018 Medical day, # 16 Center tab, 0 Refill(s) heparin 5,000 unit, 1 No Longer [place] mL, Route: Active 2018 Medical SUB-Q, Drug Center form: INJ, Q8H, Dosing Weight 54.602, kg, Start date: 11/29/17 16:00:00 CDT, Duration: 30 day, Stop date: 12/29/17 8:00:00 CDTNotes: porcine heparin NS (Bolus) IV 1,000 mL, 500 Inactive [place] ml/hr, Infuse 2018 Medical Over: 2 hr, Center Route: IV, 1,000, Drug form: INJ, ONCE, Priority: STAT, Dosing Weight 54.602 kg, Start date: 11/29/17 11:48:00 CDT, Stop date: 11/29/17 11:48:00 CDT Tramadol 50 mg, 1 tab, No Longer [place] Route: PO, Active 2017 Medical Drug form: Center TAB, Q4H, Dosing Weight 54.602, kg, PRN Headache 6-10, Start date: 11/28/17 17:01:00 CDT, Duration: 30 day, Stop date: 12/28/17 17:00:00 CDTNotes: Not to exceed 400mg/day. (Same As: Ultram) Tylenol 650 mg, 2 No Longer [place] tab, Route: Active 2017 Medical PO, Drug Center form: TAB, Q6H, Dosing Weight 54.602, kg, PRN Pain Score 1-3, Start date: 11/28/17 16:55:00 CDT, Duration: 30 day, Stop date: 12/28/17 16:54:00 CDTNotes: Do not exceed 4 gm/day. (Same as: Tylenol) Midazolam 1 mg, Route: Inactive [place] IVP, Drug 2017 Medical form: INJ, Center ONCE, Dosing Weight 54.602, kg, Start date: 11/28/17 14:30:00 CDT, Stop date: 11/28/17 14:30:00 CDT Fentanyl 50 microgram, Inactive [facility] Route: IVP, 2018 Medical Drug form: Center INJ, ONCE, Dosing Weight 54.602, kg, Start date: 11/28/17 14:30:00 CDT, Stop date: 11/28/17 14:30:00 CDT metoprolol 25 mg, 1 tab, No Longer [facility] Route: PO, Active 2017 Medical Drug form: Center ERTAB, Daily, Start date: 11/28/17 9:00:00 CDT, Duration: 30 day, Stop date: 12/27/17 9:00:00 CDTNotes: (Same as: Toprol XL) Do Not Crush Hemocyte Plus 1 cap, Route: Inactive [place] PO, Drug 2017 Medical Form: TAB, [place] Dosing Weight 57.784, kg, Daily, Start date: 11/28/17 9:00:00 CDT, Duration: 30 day, Stop date: 12/27/17 9:00:00 CDTNotes: Non-Formulary Lisinopril 2.5 mg, 1 No Longer [facility] tab, Route: Active 2018 Medical PO, Drug Center form: TAB, Daily, Dosing Weight 57.784, kg, Start date: 11/28/17 9:00:00 CDT, Duration: 30 day, Stop date: 12/27/17 9:00:00 CDTNotes: 1.25 mg=1/2 x 2.5 mg TAB (Same as: Prinivil) Multigen Folic 1 tab, Route: No Longer [facility] PO, Drug Active 2017 Medical Form: TAB, Center Daily, Start date: 11/28/17 9:00:00 CDT, Duration: 30 day, Stop date: 12/27/17 9:00:00 CDTNotes: Same as Iron/C/B12/FA /SA Furosemide 20 MG 20 mg, 1 tab, No Longer [facility] Oral Tablet Route: PO, Active 2017 Medical [Lasix] Drug form: [place] TAB, Daily, Dosing Weight 57.784, kg, Start date: 11/28/17 9:00:00 CDT, Duration: 30 day, Stop date: 12/27/17 9:00:00 CDTNotes: (Same as: Lasix) May cause GI upset. Give with food or milk. Lexapro 10 mg, 1 tab, No Longer [facility] Route: PO, Active 2018 Medical Drug form: Center TAB, Daily, Dosing Weight 57.784, kg, Start date: 11/28/17 9:00:00 CDT, Duration: 30 day, Stop date: 12/27/17 9:00:00 CDTNotes: (Same as: Lexapro) donepezil 10 mg, 2 tab, No Longer [place] Route: PO, Active 2017 Medical Drug form: Center TAB, Daily, Dosing Weight 57.784, kg, Start date: 11/28/17 9:00:00 CDT, Duration: 30 day, Stop date: 12/27/17 9:00:00 CDTNotes: (Same as: Aricept) metoprolol 25 mg metoprolol 25 No Longer [place] oral tablet, mg oral Active 2017 Medical extended release tablet, [place] extended release, 25 mg, Route: PO, Daily, 11/28/17 9:00:00 CDT, Duration: 30 day, Stop date: 12/27/17 9:00:00 CDT Thyroxine 25 microgram, No Longer [place] 1 tab, Route: Active 2017 Medical PO, Drug Center form: TAB, [id number], Dosing Weight 57.784, kg, Start date: 11/28/17 6:30:00 CDT, Duration: 30 day, Stop date: 12/27/17 6:30:00 CDTNotes: Take 1 hour before or 2 hours after meal; Enteral feeds may interefere with the absorption of this medication. (Same as:Levothroid ) Remeron 30 mg, 1 tab, No Longer [place] Route: PO, Active 2017 Medical Drug form: Center TAB, Bedtime, Dosing Weight 57.784, kg, Start date: 11/27/17 21:00:00 CDT, Duration: 30 day, Stop date: 12/26/17 21:00:00 CDTNotes: (Same as:Remeron) atorvastatin 40 mg, 1 tab, No Longer [place] Route: PO, Active 2017 Medical Drug form: Center TAB, Bedtime, Dosing Weight 57.784, kg, Start date: 11/27/17 21:00:00 CDT, Duration: 30 day, Stop date: 12/26/17 21:00:00 CDTNotes: (Same as: Lipitor) Flagyl 500 mg, 100 No Longer [place] mL, Route: Active 2018 Medical IVPB, Drug Center form: INJ, [id number], Dosing Weight 54.602, kg, Start date: 11/27/17 19:00:00 CDT, Duration: 7 day, Stop date: 12/04/17 3:30:00 CDT, ABX Indication: Intra-abdomin al Infection 200 ML 400 mg, 200 No Longer [place] Ciprofloxacin 2 mL, Route: Active 2018 Medical MG/ML Injection IVPB, Drug Center form: INJ, [id number], Dosing Weight 54.602, kg, Start date: 11/27/17 19:00:00 CDT, Duration: 7 day, Stop date: 12/04/17 7:00:00 CDT, ABX Indication: Intra-abdomin al Infection Docusate 100 mg, 1 No Longer [place] cap, Route: Active 2017 Medical PO, Drug Center form: CAP, BID, Dosing Weight 57.784, kg, Start date: 11/27/17 17:00:00 CDT, Duration: 30 day, Stop date: 12/27/17 9:00:00 CDTNotes: (Same as: Colace) (Do Not Crush) Megestrol Acetate 40 mg, 1 tab, No Longer [place] 40 MG Oral Tablet Route: PO, Active 2017 Medical Drug form: Center TAB, BID, Dosing Weight 57.784, kg, Start date: 11/27/17 17:00:00 CDT, Duration: 30 day, Stop date: 12/27/17 9:00:00 CDTNotes: (Same as: Megace) WASTE: F/P - Black; E - Yellow Dextrose 50% 25 gm, 50 mL, No Longer [place] Syringe Route: IVP, Active 2017 Medical Drug Form: [place] INJ, Dosing Weight 57.784, kg, PRN, PRN Blood Glucose Results, Start date: 11/27/17 14:09:00 CDT, Duration: 30 day, Stop date: 12/27/17 14:08:00 CDT Glucagon 1 mg, Route: No Longer [place] IM, Drug Active 2017 Medical form: [place] PDR/INJ, PRN, Dosing Weight 57.784, kg, PRN Blood Glucose Results, Start date: 11/27/17 14:09:00 CDT, Duration: 30 day, Stop date: 12/27/17 14:08:00 CDT Insulin Lispro 1 unit, 0.01 No Longer [place] mL, Route: Active 2018 Medical SUB-Q, Drug Center form: SOLN, TID-Before Meals, Dosing Weight 57.784, kg, PRN Blood Glucose Results, Start date: 11/27/17 14:09:00 CDT, Duration: 30 day, Stop date: 12/27/17 14:08:00 CDTNotes: (Same as: Humalog ) Roll in palms of hands gently; Do not shake `vigorously. "Single Patient Use Only " WASTE: F/P - Black; E - Municipal Trash Bin Stable for 28 days at room temperature. Expires in days from _Date Ondansetron 4 mg, 1 tab, No Longer [place] Route: PO, Active 2018 Medical Drug form: [place] TAB, PRN, Dosing Weight 57.784, kg, PRN Nausea, Start date: 11/27/17 14:05:00 CDT, Duration: 30 day, Stop date: 12/27/17 14:04:00 CDTNotes: (Same as: Zofran) Sulfamethoxazole 1 tab, Route: Inactive [place] 800 MG / PO, Drug 2018 Medical Trimethoprim 160 Form: TAB, Center MG Oral Tablet Dosing Weight [Bactrim] 57.784, kg, BID, Start date: 11/27/17 9:00:00 CDT, Duration: 5 day, Stop date: 12/01/17 17:00:00 CDTNotes: One DS tablet=trimet hoprim 160mg + sulfamethoxaz ole 800 mg Dose based on trimethoprim component On empty stomach with a glass of water. (Same As: Bactrim DS, Septra DS) Isolyte S PH 7.4 1,000 mL, No Longer [place] 1,000 mL Rate: 75 Active 2018 Medical ml/hr, Infuse Center over: 13.3 hr, Route: IV, Dosing Weight 57.784 kg, Total Volume: 1,000, Start date: 11/27/17 4:21:00 CDT, Duration: 30 day, Stop date: 12/27/17 4:20:00 CDT, 1.63, c4Bnofo: (Same as: Isolyte S PH 7.4) Metronidazole 500 500 mg=1 tab, No Longer [place] MG Oral Tablet PO, Q8H, X 3 Active 2017 Medical [Flagyl] day, # 9 tab, Center 0 Refill(s) ciprofloxacin 500 500 mg=1 tab, No Longer [place] mg oral tablet PO, Q12H, X 3 Active 2017 Medical day, # 6 tab, Center 0 Refill(s) 24 HR Nicotine =1 patch, No Longer [place] 0.583 MG/HR TOP, Daily, X Active 2017 Medical Transdermal Patch 30 day, # 30 Center [Habitrol] patch, 0 Refill(s) Aspirin 81 MG 81 mg, 1 tab, No Longer [place] Tablet Route: PO, Active 2017 Medical Drug form: [place] CHEWTAB, Daily, Dosing Weight 57.784, kg, Start date: 11/12/17 9:00:00 PRESS TENDER STAR SIGNAL, Duration: 30 day, Stop date: 12/11/17 9:00:00 CDTNotes: Take with food. remove patch 1 patch, No Longer Route: TOP, 2017 Medical Drug form: [place] ERFILM, Daily, Start date: 11/12/17 9:00:00 PRESS TENDER STAR SIGNAL, Duration: 30 day, Stop date: 12/11/17 9:00:00 CDTNotes: Remove old patch before application of new patch. WASTE: F/P - P Waste Black; E - P Waste Black iodixanol 100 mL, No Longer [place] Route: IVP, Active 2017 Medical Drug Form: [place] SOLN, Dosing Weight 57.784, kg, ONCALL, STAT, Start date: 11/12/17 7:18:00 PRESS TENDER STAR SIGNAL, Duration: 1 doses or times, Dose=2.2ml/kg , Max [id number] -- "To be infused by Radiology Staff ONLY"Notes: (Same as: Gina). WASTE: F/P - Black; E - Municipal Trash Bin Diphenhydramine 50 mg, 2 cap, Inactive [place] Route: PO2017 Medical Drug form: [place] CAP, ONCE, Dosing Weight 57.784, kg, Start date: 11/12/17 6:00:00 PRESS TENDER STAR SIGNAL, Stop date: 11/12/17 6:00:00 CSTNotes: (Same as: Benadryl) Prednisone 50 mg, 5 tab, Inactive [facility] Route: PO, 2017 Medical Drug form: [place] TAB, ONCE, Dosing Weight 57.784, kg, Start date: 11/12/17 6:00:00 PRESS TENDER STAR SIGNAL, Stop date: 11/12/17 6:00:00 CSTNotes: (Same as: PredniSONE) Take with food. Prednisone 50 mg, 5 tab, Inactive [place] Route: PO2017 Medical Drug form: [place] TAB, ONCE, Dosing Weight 57.784, kg, Start date: 11/12/17 0:01:00 PRESS TENDER STAR SIGNAL, Stop date: 11/12/17 0:01:00 CSTNotes: (Same as: PredniSONE) Take with food. Melatonin 1 mg, 1 mL, No Longer [place] Route: PO, Active 2017 Medical Drug form: [place] LIQ, Bedtime, Dosing Weight 57.784, kg, Start date: 11/11/17 21:00:00 PRESS TENDER STAR SIGNAL, Duration: 30 day, Stop date: 12/10/17 21:00:00 CDT Remeron 30 mg, 2 tab, No Longer [place] Route: PO, Active 2017 Medical Drug form: [place] TAB, Bedtime, Dosing Weight 58.636, kg, Start date: 11/11/17 21:00:00 PRESS TENDER STAR SIGNAL, Duration: 30 day, Stop date: 12/10/17 21:00:00 CDTNotes: (Same as:Remeron) atorvastatin 40 mg, 1 tab, No Longer [place] Route: PO, Active 2017 Medical Drug form: [place] TAB, Bedtime, Dosing Weight 58.636, kg, Start date: 11/11/17 21:00:00 PRESS TENDER STAR SIGNAL, Duration: 30 day, Stop date: 12/10/17 21:00:00 CDTNotes: (Same as: Lipitor) Prednisone 50 mg, 5 tab, Inactive [place] Route: PO, 2018 Medical Drug form: Center TAB, ONCE, Dosing Weight 57.784, kg, Start date: 11/11/17 18:00:00 PRESS TENDER STAR SIGNAL, Stop date: 11/11/17 18:00:00 CSTNotes: (Same as: PredniSONE) Take with food. 24 HR Nicotine =1 patch, No Longer [place] 0.875 MG/HR Transdermal, Active 2017 Medical Transdermal Patch Daily, 0 Center Refill(s) Megestrol Acetate 40 mg=1 tab, Active [place] 40 MG Oral Tablet PO, BID, 0 2017 Medical Refill(s) Center zolpidem 5 mg oral 5 mg=1 tab, No Longer [facility] tablet PO, PRN, 0 Active 2017 Medical Refill(s) Center Hemocyte Plus 1 cap, PO, Active [facility] Daily, 0 2017 Medical Refill(s) Center ondansetron 4 mg 4 mg=1 tab, Active [facility] oral tablet PO, PRN, 0 2017 Medical Refill(s) Center Nicotine 14 mg, 1 No Longer [facility] patch, Route: Active 2017 [facility] TOP, Drug Center form: ERFILM, Daily, Dosing Weight 57.784, kg, Start date: 11/11/17 12:39:00 PRESS TENDER STAR SIGNAL, Duration: 30 day, Stop date: 12/11/17 9:00:00 CDTNotes: (Same as: Habitrol) "Remove old patch before application of new patch" WASTE: F/P - P Waste Black; E - P Waste Black 24 HR Metoprolol 25 mg, 1 tab, No Longer [facility] Tartrate 25 MG Route: PO, Active 2017 Medical Extended Release Drug form: [place] Tablet [Toprol] ERTAB, Daily, Start date: 11/11/17 9:00:00 PRESS TENDER STAR SIGNAL, Duration: 30 day, Stop date: 12/10/17 9:00:00 CDT Lisinopril 2.5 mg, 1 No Longer [facility] tab, Route: Active 2018 Medical PO, Drug Center form: TAB, Daily, Dosing Weight 58.636, kg, Start date: 11/11/17 9:00:00 PRESS TENDER STAR SIGNAL, Duration: 30 day, Stop date: 12/10/17 9:00:00 CDTNotes: (Same as: Prinivil) Furosemide 20 MG 20 mg, 1 tab, No Longer [facility] Oral Tablet Route: PO, Active 2017 Medical [Lasix] Drug form: Center TAB, Daily, Dosing Weight 58.636, kg, Start date: 11/11/17 9:00:00 PRESS TENDER STAR SIGNAL, Duration: 30 day, Stop date: 12/10/17 9:00:00 CDTNotes: (Same as: Lasix) May cause GI upset. Give with food or milk. Lexapro 10 mg, 1 tab, No Longer [facility] Route: PO, Active 2017 Medical Drug form: Center TAB, Daily, Dosing Weight 58.636, kg, Start date: 11/11/17 9:00:00 PRESS TENDER STAR SIGNAL, Duration: 30 day, Stop date: 12/10/17 9:00:00 CDTNotes: (Same as: Lexapro) donepezil 10 mg, 2 tab, No Longer [facility] Route: PO, Active 2017 Medical Drug form: Center TAB, Daily, Dosing Weight 58.636, kg, Start date: 11/11/17 9:00:00 PRESS TENDER STAR SIGNAL, Duration: 30 day, Stop date: 12/10/17 9:00:00 CDTNotes: (Same as: Aricept) heparin 5,000 unit, 1 No Longer [facility] mL, Route: Active 2018 Medical SUB-Q, Drug Center form: INJ, Q8H, Dosing Weight 57.818, kg, Start date: 11/11/17 8:00:00 PRESS TENDER STAR SIGNAL, Duration: 30 day, Stop date: 12/11/17 0:00:00 CDTNotes: porcine heparin Thyroxine 25 microgram, No Longer [facility] 1 tab, Route: Active 2018 Medical PO, Drug Center form: TAB, Q630AM, Dosing Weight 58.636, kg, Start date: 11/11/17 6:30:00 PRESS TENDER STAR SIGNAL, Duration: 30 day, Stop date: 12/10/17 6:30:00 CDTNotes: Take 1 hour before or 2 hours after meal; Enteral feeds may interefere with the absorption of this medication. (Same as:Levothroid ) Enoxaparin 40 mg, 0.4 Inactive [place] mL, Route: 2018 Medical SUB-Q, Drug Center form: INJ, [id number], Dosing Weight 58.636, kg, Start date: 11/11/17 1:00:00 PRESS TENDER STAR SIGNAL, Duration: 30 day, Stop date: 12/10/17 1:00:00 CDTNotes: (Same as: Lovenox) Dextrose 50% 25 gm, 50 mL, No Longer [place] Syringe Route: IVP, Active 2017 Medical Drug Form: Center INJ, Dosing Weight 58.636, kg, PRN, PRN Blood Glucose Results, Start date: 11/11/17 0:25:00 PRESS TENDER STAR SIGNAL, Duration: 30 day, Stop date: 12/11/17 1:24:00 CDT Insulin Lispro 5 unit, 0.05 No Longer [place] mL, Route: Active 2017 [facility]-, Drug Center form: SOLN, Sliding Scale, Dosing Weight 58.636, kg, PRN Blood Glucose Results, Start date: 11/11/17 0:25:00 PRESS TENDER STAR SIGNAL, Duration: 30 day, Stop date: 12/11/17 1:24:00 CDTNotes: (Same as: Humalog ) Roll in palms of hands gently; Do not shake `vigorously. "Single Patient Use Only " WASTE: F/P - Black; E - Municipal Trash Bin Stable for 28 days at room temperature. Expires in days from _Date Glucagon 1 mg, Route: No Longer [place] IM, Drug Active 2018 Medical form: Center PDR/INJ, PRN, Dosing Weight 58.636, kg, PRN Blood Glucose Results, Start date: 11/11/17 0:25:00 PRESS TENDER STAR SIGNAL, Duration: 30 day, Stop date: 12/11/17 1:24:00 CDT Mirtazapine 30 MG 30 mg=1 tab, No Longer [place] Oral Tablet PO, Bedtime, Active 2018 Medical [Remeron] # 30 tab, 0 Center Refill(s) metoprolol 25 mg 25 mg=1 tab, Active [facility] oral tablet, PO, Daily, # 2018 Medical extended release 30 tab, 0 Center Refill(s) Metformin 500 mg, PO, Active [facility] BID, 0 2018 Medical Refill(s) Center Lisinopril 2.5 mg, PO, Active [facility] Daily, 0 2018 Medical Refill(s) Center atorvastatin 40 mg 40 mg=1 tab, Active [facility] oral tablet PO, Bedtime, 2018 Medical # 30 tab, 0 Center Refill(s) Escitalopram 10 MG 10 mg=1 tab, Active [facility] Oral Tablet PO, Daily, # 2018 Medical [Lexapro] 30 tab, 0 Center Refill(s) levothyroxine 25 25 Active [facility] mcg (0.025 mg) microgram=1 2018 Medical oral tablet tab, PO, Center Daily, # 30 tab, 0 Refill(s) Furosemide 20 MG 20 mg=1 tab, Active [facility] Oral Tablet PO, PRN, # 30 2018 Medical [Lasix] tab, 0 Center Refill(s) donepezil 10 mg 10 mg=1 tab, No Longer [facility] oral tablet PO, Daily, # Active 2018 Medical 30 tab, 0 Center Refill(s) clopidogrel 75 MG 75 mg=1 tab, No Longer [facility] Oral Tablet PO, Daily, # Active 2018 Medical [Plavix] 30 tab, 0 Center Refill(s) Aspirin 81 mg, PO, No Longer [facility] Daily, 0 Active 2018 Medical Refill(s) Center Isolyte S PH 7.4 1,000 mL, No Longer [facility] 1,000 mL Rate: 100 Active 2018 Medical ml/hr, Infuse Center over: 10 hr, Route: IV, Dosing Weight 58.636 kg, Total Volume: 1,000, Start date: 11/11/17 0:14:00 PRESS TENDER STAR SIGNAL, Duration: 30 day, Stop date: 12/11/17 0:13:00 CDTNotes: (Same as: Isolyte S PH 7.4) Flagyl 500 mg, 100 No Longer [facility] mL, Route: Active 2017 Medical IVPB, Drug Center form: INJ, Q8H, Dosing Weight 58.636, kg, Priority: STAT, Start date: 11/11/17 0:14:00 PRESS TENDER STAR SIGNAL, Duration: 10 day, Stop date: 11/21/17 0:00:00 CDT, ABX Indication: Intra-abdomin al InfectionNote s: (Same as: Flagyl) Avoid alcohol. Ciprofloxacin 400 mg, 200 No Longer [place] mL, Route: Active 2018 Medical IVPB, Drug Center form: INJ, [id number], Dosing Weight 58.636, kg, Priority: STAT, Start date: 11/11/17 0:14:00 PRESS TENDER STAR SIGNAL, Duration: 10 day, Stop date: 11/20/17 12:14:00 CDT, ABX Indication: Intra-abdomin al InfectionNote s: Do not refrigerate Docusate Sodium 100 mg, 1 No Longer [place] 100 MG Oral cap, Route: Active 2018 Medical Capsule PO, Drug Center form: CAP, BID, Dosing Weight 58.636, kg, PRN Constipation, Start date: 11/11/17 0:14:00 PRESS TENDER STAR SIGNAL, Duration: 30 day, Stop date: 12/11/17 0:13:00 CDTNotes: (Same as: Colace) (Do Not Crush) Ferrous Sulfate DAILY Active [place] 08/11/ [facility] [place] Iron/Fa/Vit B-Com DAILY WITH Active [place] 08/11/ [facility] St. W/C BREAKFAST 2017 [facility] [place] Magnesium Oxide TWICE DAILY Active [place] 08/11/ [facility] 2017 [facility] [place] Megestrol DAILY Active [facility] 2017 [facility] Tramadol Hcl Q6H PRN For Active [place] 08/11/ [facility] Pain 2017 [facility] [place] Enoxaparin Sodium DAILY Active [place] 07/31/ [facility] [place] Aspirin DAILY Active [facility] 2017 [facility] [place] Clopidogrel DAILY Active [facility] Bisulfate 2017 [facility] [place] Mirtazapine AT BEDTIME Active 07/28/ [facility] 2017 [facility] [place] Hydrocodone EVERY 4 HOURS Active 07/07/ [facility] St. Bit/Acetaminophen NEEDED PRN 2017 [facility] [place] Ciprofloxacin Hcl DAILY Active [facility] 2017 [facility] Ondansetron Hcl Q6H PRN For Active [facility] Nausea 2017 [facility] Codeine/Apap EVERY [address] [address] NEEDED PRN 2017 [facility] [place] Furosemide DAILY Active St. NEEDED PRN 2017 [facility] [place] Lisinopril DAILY Active . 2017 [facility] Nicotine DAILY Active . 2017 [facility] Famotidine TWICE DAILY Active . 2017 [facility] Clopidogrel DAILY Active . Bisulfate 2017 [facility] Vitamin B Complex DAILY Active St. 2017 [facility] Hydrocodone EVERY 6 HOURS Active . 10/Apap 325 NEEDED PRN 2017 [facility] [place] Metformin Hcl TWICE DAILY Active [facility] . 2017 [facility] [place] Aspirin DAILY Active [facility] . 2017 [facility] Atorvastatin DAILY Active . Calcium 2017 [facility] Calcium Carb & DAILY Active . Citrate/Vit D3 2017 [facility] [place] Donepezil Hcl AT BEDTIME Active . 2017 [facility] [place] Folic Acid DAILY Active [facility] . 2017 [facility] [place] Nitroglycerin NEEDED PRN Active . For Chest 2017 [facility] [place] Metoprolol DAILY Active St. Succinate 2017 [facility] Albuterol Inhaler NEEDED PRN Active [facility] St. For Shortness 2017 [facility] [place] Allergies, Adverse Reactions, Alerts Substance Category Reaction Severity Reaction Status Date Comments Source type Reported iodine Assertion Drug Active [facility] azithromycin Assertion Drug Active [facility] Immunizations Immunization Date Given Site Status Last Updated Comments Source Results Order Name Results Value Reference Date Interpretation Comments Source Range HEMATOLOGY Plav Effect 90 PRU 03/13 [facility] /[address] [place] [address] HEMATOLOGY ASA Effect 389 ARU 03/13 [facility] CHEM PANEL eGFR 48 03/13 Result Comment: The eGFR is calculated using the CKD-EPI formula. In most young, healthy individuals the eGFR will be >90 mL/ min/1.73m2. The eGFR declines with age. An eGFR of 60-89 may be normal in [facility] mL/min/1. some populations, particularly the elderly, for whom the CKD-EPI formula has not been extensively validated. Use of the eGFR is not recommended in the following populations: [address] Individuals with unstable creatinine concentrations, including patients and those with serious co-morbid conditions. Patients with extremes in muscle mass or diet. The data above are obtained from the National Kidney Disease Education Program (NKDEP) which additionally recommends that when the eGFR is used in patients with extremes of body mass index for purposes of drug dosing, the eGFR should be multiplied by the estimated BMI. CHEM PANEL Calcium Lvl 9.5 mg/dL 8.5 - 10.5 03/[address] CHEM PANEL CO2 24 meq/L 24 - 32 03/[address] CHEM PANEL Sodium Lvl 149 meq/L 135 - 145 03/[address] CHEM PANEL Chloride Lvl 113 meq/L 95 - 109 03/[address] CHEM PANEL Potassium 4.3 meq/L 3.5 - 5.1 03/13 [facility] [address] [place] [address] CHEM PANEL BUN 15 mg/dL 7 - 22 03/[address] CHEM PANEL Creatinine 1.12 mg/dL 0.50 - 03/13 [facility] Lvl 1.40 [facility] CHEM PANEL Glucose Lvl 87 mg/dL 70 - 99 03/[address] CHEM PANEL AGAP 16.3 meq/L 10.0 - 03/13 [facility] 20.0 [facility] HEMATOLOGY Eosinophils 0.2 K/CMM 0.0 - 0.5 03/13 [facility] HEMATOLOGY Monocytes # 0.7 K/CMM 0.0 - 0.8 03/[address] HEMATOLOGY Lymphocytes 26.5 % 20.0 - 07 [facility] 40.0 [facility] HEMATOLOGY Segs-Bands # 4.4 K/CMM 1.5 - 8.1 03/[address] HEMATOLOGY Segs 60.6 % 45.0 - 03/13 [place] 75.0 [facility] HEMATOLOGY Lymphocytes 1.9 K/CMM 1.0 - 5.5 03/13 [facility] # [facility] HEMATOLOGY Monocytes 9.9 % 2.0 - 12.0 03/[address] [place] [address] HEMATOLOGY Eosinophils 2.5 % 0.0 - 4.0 03/13 [facility] HEMATOLOGY Basophils 0.5 % 0.0 - 1.0 03/13 [facility] HEMATOLOGY Platelet 145 K/CMM 133 - 450 03/13 [facility] HEMATOLOGY RDW 18.7 % 11.5 - 03/13 [facility] 14.5 [facility] HEMATOLOGY MPV 10.6 fL 7.4 - 10.4 03/13 [facility] HEMATOLOGY MCH 29.5 pg 27.0 - 03/13 [facility] 31.0 [facility] HEMATOLOGY MCHC 32.3 g/dL 32.0 - 03/13 [facility] 36.0 [facility] HEMATOLOGY MCV 91.4 fL 80.0 - 03/13 [facility] 98.0 [facility] HEMATOLOGY WBC 7.3 K/CMM 3.7 - 10.4 03/13 [facility] HEMATOLOGY RBC 4.21 M/CMM 4.20 - 03/13 [facility] 5.40 [facility] HEMATOLOGY Hgb 12.4 g/dL 12.0 - 03/13 [facility] 16.0 [facility] HEMATOLOGY Hct 38.4 % 36.0 - 03/13 [facility] 48.0 [facility] HEMATOLOGY TEG Data See Note 03/13 [facility] (03/13/18 3:45 PM) [place] HEMATOLOGY Angle 73.0 53.0 - 03/13 [facility] degrees 72.0 [facility] HEMATOLOGY Coag Index 3.1 -3.0-3.0 - 03/13 [facility] 3.0 [facility] HEMATOLOGY G-value 11.8 K 4.5 - 11.0 03/13 [facility] d/sc [facility] HEMATOLOGY Ly30 0.2 % 0.0 - 7.5 03/13 [facility] [address] [place] [address] HEMATOLOGY R-time 4.3 min 5.0 - 10.0 03/13 [facility] [address] [place] [address] HEMATOLOGY K-time 1.1 min 1.0 - 3.0 03/13 [facility] HEMATOLOGY Max Amp 70.2 mm 50.0 - 03/13 [facility] 70.0 [facility] HEMATOLOGY TEG Interp Thrombelas 03/13 [facility] tograph [facility] show shortened value of R and increased value of Angle Alpha. These findings are suggestive of enzymatic hypercoagu lation.CPT :[id number] SPECIAL Hgb A1C 5.4 % <=5.6 % 03/13 [facility] CHEMISTRY [facility] ELECTROLYT AGAP 12.6 meq/L 10.0 - 11/30 [facility] 20.0 [facility] ELECTROLYT CO2 26 meq/L 24 - 32 11/30 [facility] ELECTROLYT Calcium Lvl 8.7 mg/dL 8.5 - 10.5 11/30 [facility] ELECTROLYT Potassium 3.6 meq/L 3.5 - 5.1 11/30 [facility] Lvl [facility] ELECTROLYT Chloride Lvl 111 meq/L 95 - 109 11/30 [facility] ELECTROLYT eGFR 68 11/30 Result Comment: The eGFR is calculated using the CKD-EPI formula. In most young, healthy individuals the eGFR will be >90 mL/ min/1.73m2. The eGFR declines with age. An eGFR of 60-89 may be normal in [facility] mL/min/1. some populations, particularly the elderly, for whom the CKD-EPI formula has not been extensively validated. Use of the eGFR is not recommended in the following populations: [address] Individuals with unstable creatinine concentrations, including patients and those with serious co-morbid conditions. Patients with extremes in muscle mass or diet. The data above are obtained from the National Kidney Disease Education Program (NKDEP) which additionally recommends that when the eGFR is used in patients with extremes of body mass index for purposes of drug dosing, the eGFR should be multiplied by the estimated BMI. ELECTROLYT BUN 7 mg/dL 7 - 22 11/30 [facility] ELECTROLYT Creatinine 0.83 mg/dL 0.50 - 11/30 [facility] Lvl 1.40 [facility] ELECTROLYT Sodium Lvl 146 meq/L 135 - 145 11/30 [facility] ELECTROLYT Glucose Lvl 103 mg/dL 70 - 99 11/30 [facility] CHEM PANEL Magnesium 2.1 mg/dL 1.8 - 2.4 11/29 [facility] CHEM PANEL Phosphorus 3.2 mg/dL 2.5 - 4.5 11/29 [facility] ELECTROLYT AGAP 12.3 meq/L 10.0 - 11/29 [facility] 20.0 [facility] ELECTROLYT eGFR 48 11/29 Result Comment: The eGFR is calculated using the CKD-EPI formula. In most young, healthy individuals the eGFR will be >90 mL/ min/1.73m2. The eGFR declines with age. An eGFR of 60-89 may be normal in [facility] mL/min/1. some populations, particularly the elderly, for whom the CKD-EPI formula has not been extensively validated. Use of the eGFR is not recommended in the following populations: [address] Individuals with unstable creatinine concentrations, including patients and those with serious co-morbid conditions. Patients with extremes in muscle mass or diet. The data above are obtained from the National Kidney Disease Education Program (NKDEP) which additionally recommends that when the eGFR is used in patients with extremes of body mass index for purposes of drug dosing, the eGFR should be multiplied by the estimated BMI. ELECTROLYT Chloride Lvl 108 meq/L 95 - 109 11/29 [facility] ELECTROLYT Glucose Lvl 115 mg/dL 70 - 99 11/29 [facility] ELECTROLYT Creatinine 1.12 mg/dL 0.50 - 11/29 [facility] Lvl 1. [facility] ELECTROLYT Sodium Lvl 143 meq/L 135 - 145 11/29 [facility] ELECTROLYT Potassium 3.3 meq/L 3.5 - 5.1 11/29 [facility] ELECTROLYT BUN 11 mg/dL 7 - 22 11/29 [facility] ELECTROLYT Calcium Lvl 8.7 mg/dL 8.5 - 10.5 11/29 [facility] ELECTROLYT CO2 26 meq/L 24 - 32 11/29 [facility] HEMATOLOGY Eosinophils 0.2 K/CMM 0.0 - 0.5 11/29 [facility] HEMATOLOGY Lymphocytes 2.6 K/CMM 1.0 - 5.5 11/29 [place] # /2017 [facility] HEMATOLOGY Monocytes # 1.4 K/CMM 0.0 - 0.8 11/29 [facility] HEMATOLOGY Segs 65.1 % 45.0 - 11/29 [place] 75.0 [facility] HEMATOLOGY Eosinophils 1.9 % 0.0 - 4.0 11/29 [facility] HEMATOLOGY Basophils 0.4 % 0.0 - 1.0 11/29 [facility] HEMATOLOGY Segs-Bands # 7.9 K/CMM 1.5 - 8.1 11/29 [facility] HEMATOLOGY Lymphocytes 21.2 % 20.0 - 11/29 40.0 [facility] HEMATOLOGY Monocytes 11.4 % 2.0 - 12.0 11/29 [facility] HEMATOLOGY MPV 9.3 fL 7.4 - 10.4 11/29 [facility] HEMATOLOGY MCH 24.8 pg 27.0 - 11/29 [place] 31.0 [facility] HEMATOLOGY Hct 31.6 % 36.0 - 11/29 [place] 48.0 [facility] HEMATOLOGY MCV 79.5 fL 80.0 - 11/29 [place] 98.0 [facility] HEMATOLOGY Platelet 347 K/CMM 133 - 450 11/29 [facility] HEMATOLOGY MCHC 31.2 g/dL 32.0 - 11/29 [place] 36.0 [facility] HEMATOLOGY RDW 20.5 % 11.5 - 11/29 14.5 [facility] HEMATOLOGY WBC 12.1 K/CMM 3.7 - 10.4 11/29 [facility] HEMATOLOGY RBC 3.97 M/CMM 4.20 - 11/29 [place] 5.40 /2017 [facility] HEMATOLOGY Hgb 9.8 g/dL 12.0 - 11/29 16.0 [facility] PARATHYROI Ca Ion WB 1.17 1.05 - 11/29 [facility] D PROFILE mMol/L 1. [facility] PARATHYROI Ca Norm WB 1.16 1.05 - 11/29 [place] D PROFILE mMol/L 1. [facility] Abdomen Abdomen w/wo EXAM: MR ABDOMEN WITH AND WITHOUT CONTRAST 11/29 - [facility] [place] w/wo contrast MRI /2018 - Medical contrast This report was dictated by a [employer]/Fellow. I have personally reviewed the images as Center MRI well as the Resident's interpretation and agree with the findings. DATE: 11/28/2017 4:57 PM CDT Read by: Keenan Mancera MD Resident: Keenan Mancera MD Dictated Date/time: 11/29/17 09:23 Electronically Signed by: Ivan Ha MD 11/29/17 12:13 FINAL REPORT INDICATION: - unclear liver lesion. IR couldn't do a biopsy. Recommended MRI with Eovist. ADDITIONAL INFORMATION: None. COMPARISON: CT 11/27/2017. TECHNIQUE: Multiplanar, multisequence acquisition of the abdomen both prior to and following intravenous contrast, in precontrast, arterial, portal venous and delayed phases of enhancement, per the dynamic liver protocol. IV contrast: 10 cc MultiHance Enteric contrast: None. FINDINGS: Lines, tubes and hardware: None. Lower thorax: Clear. Liver: The liver is normal in size and has smooth contours. There are no arterially enhancing lesions. Ill-defined wedge-shaped hypoenhancing area measuring 2.1 x 1.3 cm is noted in segment 7 (series 09/11/2000, image 53), with adjacent capsular retraction and subtle linear hypointense areas. There is no restricted diffusion. Although limited by motion artifact there appears to be contrast enhancement on the delayed images (series 1601, image 55). Biliary tree: No intra- or extrahepatic biliary ductal dilation. Gallbladder: Normal. Pancreas: Normal. Spleen: Normal. Adrenals: Normal. Kidneys and ureters: There is no hydronephrosis or renal mass. Tiny T2 hyperintense foci are noted in the left kidney, most likely representing cysts.. Gastrointestinal tract: Normal caliber. Peritoneum, mesentery and retroperitoneum: Normal. No free air, ascites or loculated fluid. Distant lymph nodes: Normal. Vasculature: There is dilatation of the infrarenal abdominal aorta measuring up to 3.1 cm in diameter. Bones: Normal. Soft tissues: Normal. IMPRESSION: 1. Ill-defined wedge-shaped hypoenhancing area measuring 2.1 x 1.3 cm is noted in segment 7 (series 09/11/2000, image 53), with adjacent capsular retraction and subtle linear hypointense areas. There is no restricted diffusion. Although limited by motion artifact there appears to be contrast enhancement on the delayed images (series 1601, image 55). Differentials include focal cholangiohepatitis/ meta static deposit. Recommend either short-term follow-up magnetic resonance imaging/PET CT versus biopsy. 2. Infrarenal abdominal aortic aneurysm measuring up to 3.1 cm. CIPROFLOXA Gram Stain Gram Stain 11/28 [facility] ZESEHAN:SUSC:P Report Performed /2017 Medical T:ISOLATE: By: Center ORDQN:[facility] CIPROFLOXA Culture: Many Staphylococcus Species, Not S. aureus 11/28 [facility] ZEESHAN:SUSC:P Aspirate/Bod /2017 Medical T:ISOLATE: y Many Staphylococcus Species, Not S. aureus #2 Center ORDQN:[facility] Fluid/Tissue Few Enterococcus Species CIPROFLOXA Enterococcus Enterococc 11/28 [facility] ZEESHAN:SUSC:P Species us Species /2017 Medical T:ISOLATE: Center ORDQN:[facility] Liver US Liver US STUDY: Image guided targeted liver biopsy 11/28 - [facility] /2017 - [facility] DATE: 11/28/2017 12:41 PM CDT Read by: Michele Fernandez Dictated Date/time: 11/28/17 17:59 Electronically Signed by: Michele Fernandez 11/28/17 18:08 FINAL REPORT INDICATION(S): 77-year-old lady with previous CT scans we suggested a questionable lesion request is for image guided biopsy of right lobe of liver questionable/suspected lesion. PROCEDURE(S) PERFORMED: 1. Detailed B mode ultrasound scan of the right lobe of liver was unable to identify the lesion. Noncontrast CT was also performed and could not identify the lesion. 2. Given the inability to identify the lesion a decision was taken not to attempt any liver biopsy on this occasion. [employer]OR[employer]Y [employer]: Dr. Fernandez CHILD DEVELOPMENT INSTRUCTOR(S): None CONSENT: Written consent obtained after discussing the indications, procedure, potential benefits, alternatives and risks SEDATION/PAIN CONTROL: Moderate conscious sedation was administered by a dedicated nurse under my supervision. There was continuous monitoring of BP, pulse and oxygen saturation. Sedation time 40 minutes. PROCEDURE IN DETAIL: The patient was brought into interventional suite and placed supine after placement of the pelvic drain. A 5 out preliminary ultrasound scan of the liver in multiple projections was unable to clearly id entify any focal liver lesion even with corresponding to the recent CT imaging. Subsequent noncontrast CT images of the liver were also obtained in an attempt to identify the lesion. The lesion could not be identified clearly therefore no ultrasound guided liver biopsy was performed on this occasion. FINDINGS: The visualized liver on ultrasound and noncontrast CT demonstrated no lesions. COMPLICATIONS: None ESTIMATED BLOOD LOSS: None FLUOROSCOPIC TIME: 0 minutes RADIATION DOSE: 0 mGy CONTRAST VOLUME: 0 mL IMPRESSION: Planned targeted biopsy of the liver was not performed due to inability to visualize the lesion or standard B mode ultrasound and also noncontrast CT. PLAN/FOLLOW UP: Given the previous questionable nature of the lesion, I recommend performing MRI scan of the liver with a obvious to reevaluate the right lobe of liver further. If the lesion is confirmed on MRI scan th en targeted ultrasound scan of the lesion should be performed with intravascular ultrasound contrast study. Dr. Fernandez, IR Attending, was present for the procedure. Abscess Abscess STUDY: Image guided pelvic drain placement 11/28 - 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 PROCEDURE(S) PERFORMED: Successful CT-guided placement of a 10 Latvian left transgluteal drain with Miguel Ángel pus drained. [employer]: Dr. Fernandez CHILD DEVELOPMENT INSTRUCTOR(S): None CONSENT: Written consent obtained after discussing the indications, procedure, potential benefits, alternatives and risks SEDATION/PAIN CONTROL: Moderate conscious sedation was administered by a dedicated nurse under my supervision. There was continuous monitoring of BP, pulse and oxygen saturation. Sedation time 30 minutes. PROCEDURE IN DETAIL: The patient was brought interventional suite and placed prone. [place] CT imaging confirmed the presence of pelvic abscess. The appropriate access site was then identified. The overlying skin was then prepped and draped in the usual sterile fashion. Lidocaine 1% used as local anesthetic. Using intermittent CT guidance an 18 -gauge Chiba needle was advanced into the abscess collection via a left transgluteal approach. Holland wire was advanced into col lection. Subsequently serial dilatation of the access tract was then performed to accept a 10 Latvian Mac lock drain. Miguel Ángel pus was aspirated and specimen was sent for microbiology evaluation. The drain was then flushed and connected to a NASRA bulb for drainage. Drain to the skin using 2 sutures of 2-0 Prolene. Sterile dressing was applied. FINDINGS: Complex pelvic collection with successful placement of a 10 Latvian drain. COMPLICATIONS: None ESTIMATED BLOOD LOSS: None FLUOROSCOPIC TIME: 0 minutes RADIATION DOSE (DLP): 823 mGy.cm CONTRAST VOLUME: 0 mL IMPRESSION: Successful CT-guided placement of a 10 Latvian left transgluteal drain with Miguel Ángel pus drained. PLAN/FOLLOW UP: Recommend flushing the drain with 10 cc of saline Q6 hourly. Dr. Dr Fernandez, IR Attending, was present for the procedure. CHEM PANEL Phosphorus 2.8 mg/dL 2.5 - 4.5 11/[address] CHEM PANEL Magnesium 2.2 mg/dL 1.8 - 2.4 11/[address] [facility] CHEM PANEL eGFR 71 11/28 Result Comment: The eGFR is calculated using the CKD-EPI formula. In most young, healthy individuals the eGFR will be >90 mL/ min/1.73m2. The eGFR declines with age. An eGFR of 60-89 may be normal in [facility] mL/min/1. some populations, particularly the elderly, for whom the CKD-EPI formula has not been extensively validated. Use of the eGFR is not recommended in the following populations: [address] Individuals with unstable creatinine concentrations, including patients and those with serious co-morbid conditions. Patients with extremes in muscle mass or diet. The data above are obtained from the National Kidney Disease Education Program (NKDEP) which additionally recommends that when the eGFR is used in patients with extremes of body mass index for purposes of drug dosing, the eGFR should be multiplied by the estimated BMI. CHEM PANEL Glucose Lvl 63 mg/dL 70 - 99 11/[address] CHEM PANEL BUN 10 mg/dL 7 - 22 11/[address] CHEM PANEL Calcium Lvl 8.3 mg/dL 8.5 - 10.5 11/[address] CHEM PANEL AGAP 12.5 meq/L 10.0 - 11/28 [place] 20.0 [facility] CHEM PANEL Creatinine 0.80 mg/dL 0.50 - 11/28 [facility] Lvl 1.40 [facility] CHEM PANEL Sodium Lvl 143 meq/L 135 - 145 11/[address] CHEM PANEL CO2 25 meq/L 24 - 32 11/[address] CHEM PANEL Chloride Lvl 109 meq/L 95 - 109 11/28 [facility]2017 [facility] CHEM PANEL Potassium 3.5 meq/L 3.5 - 5.1 11/28 [facility] Lvl [facility] HEMATOLOGY Segs 72.9 % 45.0 - 11/28 [place] 75.0 [facility] HEMATOLOGY Segs-Bands # 9.0 K/CMM 1.5 - 8.1 11/[address] HEMATOLOGY Microcyte 1+ None Seen 11/28 [facility] Center (11/28/17 3:05 AM) HEMATOLOGY Monocytes # 1.5 K/CMM 0.0 - 0.8 11/28 [facility] HEMATOLOGY Lymphocytes 1.7 K/CMM 1.0 - 5.5 11/28 [facility] HEMATOLOGY Eosinophils 0.2 K/CMM 0.0 - 0.5 11/28 [facility] HEMATOLOGY Basophils 0.4 % 0.0 - 1.0 11/[address] HEMATOLOGY Eosinophils 1.3 % 0.0 - 4.0 11/[address] HEMATOLOGY Monocytes 11.9 % 2.0 - 12.0 11/28 [facility] [address] [place] [address] HEMATOLOGY Lymphocytes 13.5 % 20.0 - 11/28 [place] 40.0 [facility] HEMATOLOGY MCH 24.7 pg 27.0 - 11/28 [place] 31.0 [facility] HEMATOLOGY MCV 78.2 fL 80.0 - 11/28 [place] 98.0 [facility] HEMATOLOGY Hct 25.4 % 36.0 - 11/28 [facility] 48.0 [facility] HEMATOLOGY Hgb 8.0 g/dL 12.0 - 11/28 [place] 16.0 [facility] HEMATOLOGY MPV 9.5 fL 7.4 - 10.4 11/[address] HEMATOLOGY Platelet 255 K/CMM 133 - 450 11/28 [facility] HEMATOLOGY RDW 20.6 % 11.5 - 11/28 [facility] 14.5 [facility] HEMATOLOGY RBC 3.25 M/CMM 4.20 - 11/28 [facility] 5.40 /2017 [facility] HEMATOLOGY WBC 12.3 K/CMM 3.7 - 10.4 11/28 [facility] HEMATOLOGY MCHC 31.6 g/dL 32.0 - 11/28 [facility] 36.0 [facility] PARATHYROI Ca Ion WB 1.13 1.05 - 11/28 [facility] D PROFILE mMol/L 1. [facility] PARATHYROI Ca Norm WB 1.13 1.05 - 11/28 [facility] D PROFILE mMol/L 1. [facility] Chest 2 Chest 2 EXAM: XR CHEST 2 VIEWS 11/27 - [facility] views DX views DX - Medical This report was dictated by a [employer]/Fellow. I have personally reviewed the images as Center well as the Resident's interpretation and agree with the findings. DATE: 11/27/2017 1:59 PM CDT Read by: Anjel Pinedo MD Resident: Anjel Pinedo MD Dictated Date/time: 11/27/17 15:48 Electronically Signed by: Jamari Kahn MD 11/27/17 15:55 FINAL REPORT INDICATION: - Leukocytosis, COMPARISON: Chest x-ray from November 27, 2017 timed 2:00 AM. TECHNIQUE: PA and lateral chest radiographs FINDINGS: Lines, tubes and hardware: Median sternotomy wires are stable. Lungs and pleura: Flattening of the diaphragms and widened AP diameter suggest chronic obstructive disease. No focal consolidations are present. No pleural effusions or pneumothoraces are seen. Heart and mediastinum: The cardiomediastinal silhouette's size and contours are unchanged. Incidental note is made of calcifications in the aortic knob. Bones: No acute bony abnormality is identified. IMPRESSION: No significant change from prior study. [place] SECTION: ER HEMATOLOGY Monocytes # 1.6 K/CMM 0.0 - 0.8 11/27 [facility] HEMATOLOGY Lymphocytes 1.0 K/CMM 1.0 - 5.5 11/27 [facility] # /2017 [facility] HEMATOLOGY Eosinophils 0.1 K/CMM 0.0 - 0.5 11/27 [facility] # /2017 [facility] HEMATOLOGY Lymphocytes 6.3 % 20.0 - 11/27 [place] 40.0 [facility] HEMATOLOGY Segs 83.3 % 45.0 - 11/27 [facility] 75.0 /2017 [facility] HEMATOLOGY Segs-Bands # 13.8 K/CMM 1.5 - 8.1 11/[address] HEMATOLOGY Eosinophils 0.7 % 0.0 - 4.0 11/[address] [place] [address] HEMATOLOGY Monocytes 9.6 % 2.0 - 12.0 11/27 [facility] [address] [place] [address] HEMATOLOGY Basophils 0.1 % 0.0 - 1.0 11/27 /[address] [place] [address] HEMATOLOGY Platelet 242 K/CMM 133 - 450 11/[address] HEMATOLOGY RDW 20.7 % 11.5 - 11/27 [facility] 14.5 [facility] HEMATOLOGY MCHC 31.5 g/dL 32.0 - 11/27 [facility] 36.0 [facility] HEMATOLOGY MPV 9.2 fL 7.4 - 10.4 11/27 [facility] [address] [place] [address] HEMATOLOGY WBC 16.5 K/CMM 3.7 - 10.4 11/[address] [place] [address] HEMATOLOGY MCH 25.2 pg 27.0 - 11/27 [facility] 31.0 [facility] HEMATOLOGY MCV 79.9 fL 80.0 - 11/27 [facility] 98.0 [facility] HEMATOLOGY Hct 25.0 % 36.0 - 11/27 [facility] 48.0 [facility] HEMATOLOGY Hgb 7.9 g/dL 12.0 - 11/27 [facility] 16.0 [facility] HEMATOLOGY RBC 3.13 M/CMM 4.20 - 11/27 [place] 5.40 /2017 [facility] CHEM PANEL Lactic Acid 0.9 mMol/L 0.5 - 2.2 11/27 [facility] Lvl /2017 [facility] Culture: 10,000 - 11/27 [facility] Urine 50,000 /2017 [facility] CFU/mL [place] [facility] URINE AND UA RBC 3-5 /HPF 0 - 2 11/27 [facility] STOOL /[address] [place] [address] URINE AND UA Bacteria Many /HPF None Seen 11/27 [facility] STOOL /HPF /[address] [place] [address] URINE AND UA WBC 21-50 /HPF None Seen 11/27 [facility] STOOL /HPF /[address] [place] [address] URINE AND UA Sq Epi Moderate Few /LPF 11/27 [place] STOOL /LPF /2017 [facility] URINE AND UA Protein 30 mg/dL Negative 11/27 [facility] STOOL mg/dL [facility] URINE AND UA Blood Moderate Negative 11/27 [facility] *ABN* [place] (11/27/17 3:42 AM) URINE AND UA 0.2 EU/dL 0.1 - 1.0 11/27 [facility] Urobilinogen /2017 [facility] URINE AND UA Leuk Est Large Negative 11/27 [facility] *ABN* [place] (11/27/17 3:42 AM) URINE AND UA Nitrite Negative Negative 11/27 [facility] (11/27/17 3:42 AM) [place] URINE AND UA Bili Negative Negative 11/27 [facility] *NA* [place] (11/27/17 3:42 AM) URINE AND UA Ketones Negative Negative 11/27 [facility] [place] (11/27/17 3:42 AM) URINE AND UA Glucose Negative Negative 11/27 [facility] (11/27/17 3:42 AM) [place] URINE AND UA Spec Grav 1.020 <=1.030 11/27 [facility] [address] [place] [address] URINE AND UA Turbidity Cloudy Clear 11/27 [facility] *ABN* [place] (11/27/17 3:42 AM) URINE AND UA Color Yellow Yellow 11/27 [facility] *NA* [place] (11/27/17 3:42 AM) URINE AND UA pH 7.5 5.0 - 8.0 11/27 [facility] [address] [place] [address] CARDIAC Troponin-I null 0.00 - 11/27 [facility] ENZYMES 0.40 [facility] CHEM PANEL Lipase Lvl 71 unit/L 73 - 393 11/[address] CHEM PANEL Bili 0.1 mg/dL 0.0 - 1.0 11/27 [facility] Indirect [facility] CHEM PANEL Bili Total 0.2 mg/dL 0.2 - 1.3 11/[address] CHEM PANEL Bili Direct 0.1 mg/dL 0.0 - 0.3 11/[address] CHEM PANEL Alk Phos 66 unit/L 39 - 136 11/[address] CHEM PANEL ALT 12 unit/L 0 - 65 11/[address] CHEM PANEL AST 19 unit/L 0 - 37 11/[address] CHEM PANEL Total 6.1 g/dL 6.4 - 8.4 11/27 [facility] [address] CHEM PANEL Albumin Lvl 2.0 g/dL 3.5 - 5.0 11/[address] CHEM PANEL A/G Ratio 0.5 0.7 - 1.6 11/[address] CHEM PANEL Globulin 4.1 g/dL 2.7 - 4.2 11/[address] HEMATOLOGY Microcyte 1+ None Seen 11/27 [facility] [address] [place] [address] (11/27/17 2:25 AM) HEMATOLOGY Basophils # 0.1 K/CMM 0.0 - 0.2 11/[address] HEMATOLOGY PTT 25.8 s 22.9 - 11/27 [facility] 35.8 [facility] HEMATOLOGY INR 1.17 0.85 - 11/27 [facility] 1.[address] [place] [address] HEMATOLOGY PT 15.0 s 12.0 - 11/27 [facility] 14.[address] [place] [address] Chest Chest 1view EXAM: XR CHEST 1 VIEW 11/27 [facility] 1view DX [place] DATE: 11/27/2017 1:51 AM CDT Read by: Tyron Zuleta Dictated Date/time: 11/27/17 04:14 Electronically Signed by: Tyron Zuleta 11/27/17 04:17 FINAL REPORT INDICATION: - dizziness COMPARISON: Radiograph from outside hospital dated 11/26/2017 TECHNIQUE: AP chest, semierect. FINDINGS: Lines and tubes, and life support devices: None. Lungs and pleura: Lungs are hyperinflated with flattening of the domes of the diaphragm. Mild left basilar subsegmental atelectasis noted. Otherwise, no new pulmonary or pleural based abnormality is identified. Heart and mediastinum: Unchanged. Post CABG changes. Bones and soft tissues: Unchanged. IMPRESSION: Hyperinflated lungs suggestive of COPD. No significant interval change or acute abnormality. CHEM PANEL eGFR 62 11/14 Result Comment: The eGFR is calculated using the CKD-EPI formula. In most young, healthy individuals the eGFR will be >90 mL/ min/1.73m2. The eGFR declines with age. An eGFR of 60-89 may be normal in [facility] mL/min/1. some populations, particularly the elderly, for whom the CKD-EPI formula has not been extensively validated. Use of the eGFR is not recommended in the following populations: [address] Individuals with unstable creatinine concentrations, including patients and those with serious co-morbid conditions. Patients with extremes in muscle mass or diet. The data above are obtained from the National Kidney Disease Education Program (NKDEP) which additionally recommends that when the eGFR is used in patients with extremes of body mass index for purposes of drug dosing, the eGFR should be multiplied by the estimated BMI. CHEM PANEL Chloride Lvl 107 meq/L 95 - 109 11/[address] CHEM PANEL Potassium 3.2 meq/L 3.5 - 5.1 11/[address] CHEM PANEL CO2 30 meq/L 24 - 32 11/[address] CHEM PANEL Calcium Lvl 8.2 mg/dL 8.5 - 10.5 11/[address] CHEM PANEL Sodium Lvl 146 meq/L 135 - 145 11/[address] CHEM PANEL Creatinine 0.90 mg/dL 0.50 - 11/14 [facility] 1.40 [facility] CHEM PANEL BUN 11 mg/dL 7 - 22 11/[address] CHEM PANEL Glucose Lvl 95 mg/dL 70 - 99 11/[address] CHEM PANEL AGAP 12.2 meq/L 10.0 - 11/14 [facility] 20.0 [facility] HEMATOLOGY Anisocyte 1+ None Seen 11/[address] *ABN* Center (11/14/17 3:40 AM) HEMATOLOGY Monocytes # 0.9 K/CMM 0.0 - 0.8 11/[address] HEMATOLOGY Eosinophils 0.1 K/CMM 0.0 - 0.5 11/[address] HEMATOLOGY Lymphocytes 2.5 K/CMM 1.0 - 5.5 11/[address] HEMATOLOGY Neutrophils 7.5 K/CMM 1.5 - 8.1 11/[address] HEMATOLOGY Eosinophils 0.6 % 0.0 - 4.0 11/14 [facility] HEMATOLOGY Monocytes 8.4 % 2.0 - 12.0 11/14 [facility] HEMATOLOGY Basophils 0.2 % 0.0 - 1.0 11/14 [facility] HEMATOLOGY Segs 68.4 % 45.0 - 11/14 75.0 [facility] HEMATOLOGY Lymphocytes 22.4 % 20.0 - 11/14 40.0 [facility] HEMATOLOGY MCV 80.6 fL 80.0 - 11/14 [place] 98.0 [facility] HEMATOLOGY Hct 27.6 % 36.0 - 11/14 48.0 [facility] HEMATOLOGY Hgb 8.9 g/dL 12.0 - 11/14 16.0 [facility] HEMATOLOGY RBC 3.43 M/CMM 4.20 - 11/14 5.40 [facility] HEMATOLOGY WBC 11.0 K/CMM 3.7 - 10.4 11/14 [facility] HEMATOLOGY Platelet 300 K/CMM 133 - 450 11/14 [facility] HEMATOLOGY MPV 9.0 fL 7.4 - 10.4 11/14 [facility] HEMATOLOGY MCH 25.8 pg 27.0 - 11/14 31.0 [facility] HEMATOLOGY RDW 21.1 % 11.5 - 11/14 14.5 [facility] HEMATOLOGY MCHC 32.1 g/dL 32.0 - 11/14 [facility] 36.0 [facility] CHEM PANEL eGFR 61 11/13 Result Comment: The eGFR is calculated using the CKD-EPI formula. In most young, healthy individuals the eGFR will be >90 mL/ min/1.73m2. The eGFR declines with age. An eGFR of 60-89 may be normal in [facility] mL/min/1.7 some populations, particularly the elderly, for whom the CKD-EPI formula has not been extensively validated. Use of the eGFR is not recommended in the following populations: [address] Individuals with unstable creatinine concentrations, including patients and those with serious co-morbid conditions. Patients with extremes in muscle mass or diet. The data above are obtained from the National Kidney Disease Education Program (NKDEP) which additionally recommends that when the eGFR is used in patients with extremes of body mass index for purposes of drug dosing, the eGFR should be multiplied by the estimated BMI. CHEM PANEL Potassium 3.4 meq/L 3.5 - 5.1 11/13 [facility] CHEM PANEL Sodium Lvl 145 meq/L 135 - 145 11/[address] CHEM PANEL Chloride Lvl 107 meq/L 95 - 109 11/[address] CHEM PANEL Calcium Lvl 8.3 mg/dL 8.5 - 10.5 11/[address] CHEM PANEL AGAP 12.4 meq/L 10.0 - 0308 [facility] 20.0 [facility] CHEM PANEL CO2 29 meq/L 24 - 32 11/[address] CHEM PANEL Creatinine 0.91 mg/dL 0.50 - 11/13 [facility] Lvl 1.40 [facility] CHEM PANEL BUN 14 mg/dL 7 - 22 11/[address] CHEM PANEL Glucose Lvl 111 mg/dL 70 - 99 11/[address] HEMATOLOGY Anisocyte 1+ None Seen 11/13 [facility] [address] [place], [place] [address]ABN* Center (11/13/17 3:33 AM) HEMATOLOGY Basophils 0.1 % 0.0 - 1.0 11/[address] HEMATOLOGY Segs 75.0 % 45.0 - 08 [facility] 75.0 [facility] HEMATOLOGY Lymphocytes 2.1 K/CMM 1.0 - 5.5 11/13 [facility] /[address] [place] [address] HEMATOLOGY Neutrophils 10.1 K/CMM 1.5 - 8.1 11/[address] HEMATOLOGY Monocytes # 1.3 K/CMM 0.0 - 0.8 11/[address] HEMATOLOGY Monocytes 9.3 % 2.0 - 12.0 /[address] HEMATOLOGY Lymphocytes 15.6 % 20.0 - 03/08 [facility] 40.0 [facility] HEMATOLOGY MCV 81.2 fL 80.0 - 08 [facility] 98.0 [facility] HEMATOLOGY MCHC 31.5 g/dL 32.0 - 03/08 [place] 36.0 [facility] HEMATOLOGY MCH 25.6 pg 27.0 - 0308 31.0 [facility] HEMATOLOGY Hgb 8.0 g/dL 12.0 - 11/13 [facility] 16.0 [facility] HEMATOLOGY Hct 25.4 % 36.0 - 03 [facility] 48.0 [facility] HEMATOLOGY RBC 3.13 M/CMM 4.20 - 11/13 [facility] 5.40 /2017 [facility] HEMATOLOGY WBC 13.5 K/CMM 3.7 - 10.4 11/[address] HEMATOLOGY Platelet 308 K/CMM 133 - 450 11/13 [facility]2017 [facility] HEMATOLOGY MPV 9.1 fL 7.4 - 10.4 11/[address] HEMATOLOGY RDW 21.5 % 11.5 - 11/13 [facility] 14.5 [facility] ELECTROLYT AGAP 14.3 meq/L 10.0 - 11/12 [facility] 20.0 [facility] ELECTROLYT eGFR 49 11/12 Result Comment: The eGFR is calculated using the CKD-EPI formula. In most young, healthy individuals the eGFR will be >90 mL/ min/1.73m2. The eGFR declines with age. An eGFR of 60-89 may be normal in [facility] mL/min/1.7 some populations, particularly the elderly, for whom the CKD-EPI formula has not been extensively validated. Use of the eGFR is not recommended in the following populations: [address] Individuals with unstable creatinine concentrations, including patients and those with serious co-morbid conditions. Patients with extremes in muscle mass or diet. The data above are obtained from the National Kidney Disease Education Program (NKDEP) which additionally recommends that when the eGFR is used in patients with extremes of body mass index for purposes of drug dosing, the eGFR should be multiplied by the estimated BMI. ELECTROLYT Glucose Lvl 175 mg/dL 70 - 99 11/12 [facility] ELECTROLYT Calcium Lvl 9.0 mg/dL 8.5 - 10.5 11/12 [facility] ELECTROLYT Chloride Lvl 105 meq/L 95 - 109 11/12 [facility] [address] [place] [address] ELECTROLYT CO2 25 meq/L 24 - 32 11/[address] ELECTROLYT Sodium Lvl 140 meq/L 135 - 145 11/12 [facility] ELECTROLYT Potassium 4.3 meq/L 3.5 - 5.1 11/12 [facility] ES Lvl /2017 [facility] ELECTROLYT BUN 14 mg/dL 7 - 22 11/12 [facility] ES [facility] ELECTROLYT Creatinine 1.09 mg/dL 0.50 - 11/12 [facility] Lvl 1.40 [facility] HEMATOLOGY MCH 25.5 pg 27.0 - 11/12 [facility] 31.0 [facility] HEMATOLOGY MCV 82.0 fL 80.0 - 11/12 [facility] 98.0 [facility] HEMATOLOGY RDW 21.6 % 11.5 - 11/12 [facility] 14.5 /2017 [facility] HEMATOLOGY MCHC 31.2 g/dL 32.0 - 11/12 [facility] 36.0 [facility] HEMATOLOGY RBC 3.66 M/CMM 4.20 - 11/12 [facility] 5.40 [facility] HEMATOLOGY Hct 30.0 % 36.0 - 11/12 [facility] 48.0 [facility] HEMATOLOGY Hgb 9.4 g/dL 12.0 - 11/12 [facility] 16.0 [facility] HEMATOLOGY WBC 19.6 K/CMM 3.7 - 10.4 11/[address] [place] [address] HEMATOLOGY MPV 9.7 fL 7.4 - 10.4 11/[address] [place] [address] HEMATOLOGY Platelet 311 K/CMM 133 - 450 11/12 [facility] [address] [place] [address] HEMATOLOGY Plt Morph Normal 11/12 [facility] (11/12/17 6:21 AM) [place] HEMATOLOGY Segs 92.7 % 45.0 - 11/12 [facility] 75.0 [facility] HEMATOLOGY Monocytes # 0.2 K/CMM 0.0 - 0.8 11/12 [facility] HEMATOLOGY Anisocyte 1+ None Seen 11/12 [facility] *ABN* Center (11/12/17 6:21 AM) HEMATOLOGY Lymphocytes 1.2 K/CMM 1.0 - 5.5 11/12 [facility] HEMATOLOGY Monocytes 1.1 % 2.0 - 12.0 11/[address] HEMATOLOGY Basophils 0.1 % 0.0 - 1.0 11/[address] HEMATOLOGY Neutrophils 18.2 K/CMM 1.5 - 8.1 11/12 [facility] HEMATOLOGY Lymphocytes 6.1 % 20.0 - 11/12 [facility] 40.0 /2018 [facility] Center TUMOR AFP 1.8 ng/mL 0.0 - 11.0 11/12 [facility] MARKERS /2017 [facility] Center TUMOR CEA 0.5 ng/mL 0.0 - 3.0 11/12 [facility] MARKERS /2017 [facility] TUMOR CA 19-9 8.1 0.0 - 35.0 11/12 [facility] MARKERS unit/mL /2017 [facility] Center Abdomen/Pe Abdomen/Pelv EXAM: CT ABDOMEN AND PELVIS WITH CONTRAST 11/12 - [facility] lvis w IV is w IV /2017 - Medical contrast contrast CT This report was dictated by a [employer] Bre[employer] /Fellow. I have personally reviewed the images as Center CT well as the Resident's interpretation and agree with the findings. DATE: 11/12/2017 6:39 AM [employer] Read by: Lawson John MD Resident: Lawson John MD Dictated Date/time: 11/12/17 09:09 Electronically Signed by: Emi Townsend MD 11/12/17 13:35 FINAL REPORT INDICATION: - Evaluate for mass, perforation, stricture ADDITIONAL INFORMATION: "77 yo F with PMH of CAD s/p CABG x 2, DM, history of aortic aneurysm s/p repair and dementia presents after her GI doctor performed a barium enema yesterday (11/10) and was t old her to go to the emergency department. She had previously undergone a colonoscopy at the end of October and the scope was unable to be passed beyond the sigmoid colon." COMPARISON: Outside CT on 11/10/2017. TECHNIQUE: Volumetric CT acquisition of the abdomen and pelvis after the intravenous administration contrast. Axial, coronal and sagittal reconstructions. Postcontrast phases: Venous and delayed. IV contrast: 86 mL of Visipaque 320 Enteric contrast: Gastrografin. DLP: 1040 mGy-cm FINDINGS: Lower thorax: Left lower lobe small calcified granuloma. Heart is normal in size. No pericardial effusion. Liver: Ill-defined segment 6 hypodensity measuring 0.9 x 1.9 x 1.3 cm. Biliary tree: No intra- or extrahepatic biliary ductal dilation. Gallbladder: Normal. No CT evidence of gallstones. Pancreas: Normal. Spleen: Scattered punctate calcifications are likely a sequelae of prior granulomatous disease. Adrenals: Normal. Kidneys and ureters: Normal. Bladder: Decompressed. Reproductive organs: The uterus is surgically absent. No adnexal masses are identified. Gastrointestinal tract: There is extensive wall thickening in the sigmoid colon and rectum with focal area of narrowing in the distal sigmoid colon ( series 5, image 66) Scattered diverticula are noted i n the sigmoid and descending colon. The previously described soft tissue mass on the prior exam is not well seen on this study and likely represented extensive phlegmonous changes. Appendix: Not seen. No inflammation. Peritoneum, mesentery and retroperitoneum: Numerous foci of extraluminal air within an organizing fluid collection are noted inferior to the peritoneal reflection. Lymph nodes: There are mildly enlarged left paratracheal lymph node measuring 1 cm in short axis. Vasculature: Aneurysmal dilation of the infrarenal abdominal aorta measuring up to 3.3 cm in diameter. There is aneurysmal dilation of the right common iliac artery. The right common iliac artery is tor tuous. Extensive mixed atherosclerotic plaque of the aorta and its main branches. Bones: Right hip hemiarthroplasty is noted. There are moderate degenerative changes of the lumbar spine with facet degeneration and vacuum phenomena at L5-S1. Soft tissues: Normal. IMPRESSION: 1. Phlegmonous change with organizing fluid collection containing multiple foci of air inferior to the peritoneal reflection with extensive distal sigmoid and rectal wall thickening and luminal narrowi ng most likely represents focal perforation, possibly from an underlying mass. 2. Previously described soft tissue mass at the rectosigmoid junction is not well-seen on this exam and likely represented phlegmon which has now redistributed. 3. Ill-defined segment 6 hypodensity is suspicious for metastatic disease in setting of primary neoplasm. 4. Nonspecific left para-aortic lymphadenopathy. 5. Infrarenal abdominal aortic aneurysm and aneurysmal dilation of the right common iliac artery. 6. Extensive atherosclerosis. Chest Chest 1view EXAM: XR CHEST 1 VIEW 11/11 - [facility] 1view DX DX /2018 - [facility] DATE: 11/11/2017 12:35 PM [employer] Read by: Rafa Tse MD Dictated Date/time: 11/11/17 13:19 Electronically Signed by: Rafa Tse MD 11/11/17 13:21 FINAL REPORT INDICATION: - productive cough COMPARISON: 11/10/2017 TECHNIQUE: AP chest FINDINGS: Lines, tubes and hardware: Sternotomy wires are present. Surgical clips project over the left hilum. Lungs and pleura: No pulmonary or pleural based abnormality is identified. Pulmonary vascularity is normal. Heart and mediastinum: The heart size is normal for technique. The aorta is mildly tortuous and calcified. Bones: No acute bony abnormality is identified. IMPRESSION: 1. No acute cardiopulmonary abnormality. CHEM PANEL Lactic Acid 1.2 mMol/L 0.5 - 2.2 11/[address] CHEM PANEL Lactic Acid 2.4 mMol/L 0.5 - 2.2 11/[address] Culture: No Growth 11/11 [facility] Urine /[address] [place] [address] URINE AND UA Bacteria Moderate None Seen 11/11 [facility] STOOL /HPF /HPF /[address] [place] [address] URINE AND UA WBC 6-10 /HPF None Seen 11/11 [facility] STOOL /HPF /[address] [place] [address] URINE AND UA Mucus None Seen None Seen 11/[address] (11/10/17 10:50 PM) [place] URINE AND UA RBC 0-2 /HPF 0 - 2 11/[address] URINE AND UA Sq Epi Moderate Few /LPF 11/11 [facility] STOOL /LPF /[address] [place] [address] URINE AND UA Leuk Est Moderate Negative 11/11 [facility] [address] [place] [address] *ABN* [place] (11/10/17 10:50 PM) URINE AND UA Nitrite Negative Negative 11/[address] (11/10/17 10:50 PM) [place] URINE AND UA 0.2 EU/dL 0.1 - 1.0 11/11 [facility] Urobilinogen /[address] [place] [address] URINE AND UA Spec Grav >=1.030 <=1.030 11/11 [facility] [address] [place] [address] *ABN* [place] (11/10/17 10:50 PM) URINE AND UA Turbidity Slight Cloudy Clear 11/[address] (11/10/17 10:50 PM) [place] URINE AND UA Color Yellow Yellow 11/[address] *NA* [place] (11/10/17 10:50 PM) URINE AND UA Glucose Negative Negative 11/[address] (11/10/17 10:50 PM) [place] URINE AND UA Protein 30 mg/dL Negative 11/11 [facility] mg/dL /[address] [place] [address] URINE AND UA pH 5.5 5.0 - 8.0 11/[address] URINE AND UA Blood Moderate Negative 11/11 [facility] *ABN* Center (11/10/17 10:50 PM) URINE AND UA Bili Negative Negative 11/11 [facility] *NA* Center (11/10/17 10:50 PM) URINE AND UA Ketones Trace Negative 11/11 [facility] *ABN* Center (11/10/17 10:50 PM) CHEM PANEL Lactic Acid 2.3 mmol/L 0.5 - 2.2 11/11 [facility] HEMATOLOGY PT 15.2 s 12.0 - 11/11 [facility] 14.7 [facility] HEMATOLOGY INR 1.19 0.85 - 11/11 [facility] 1.17 [facility] HEMATOLOGY PTT 28.5 s 22.9 - 11/11 [facility] 35.8 [facility] HEMATOLOGY Basophils # 0.1 K/CMM 0.0 - 0.2 11/11 [facility] HEMATOLOGY Eosinophils 0.1 % 0.0 - 4.0 11/11 [facility]2017 [facility] Torso-Outs Torso-Outsid THIS IS A PRELIMINARY REPORT BY THE ON-CALL RESIDENT. CHANGES TO THIS PRELIMINARY REPORT MAY OCCUR IN AN ADDITIONAL PRELIMINARY OR FINALIZED VERSION. 11/10 - [facility] e Consult CT /2017 - Medical Consult CT This report was dictated by a [employer]/Fellow. I have personally reviewed the images as Center well as the Resident's interpretation and agree with the findings. IMPRESSION: Read by: Christopher Zhong MD Resident : Christopher Zhong MD Dictated Date/time: 11/10/17 23:43 1. Extensive intrapelvic extraluminal air and fluid adjacent to the rectosigmoid junction highly concerning for focal perforation of the rectosigmoid colon. Evaluation for an organized abscess is limit Electronically Signed by: Derek Norman 11/11/17 09 :48 ed due to absence of IV contrast and significant beam hardening artifact from patient's right hip prosthesis. These findings were described on the outside report. FINAL REPORT 2. Colonic diverticulosis of the descending colon and rectosigmoid colon. 3. Aneurysmal dilatation of the infrarenal abdominal aorta measuring up to 3.4 cm. Extensive vascular atherosclerosis is also noted. 4. Granulomatous disease of the spleen. [place] SECTION: Body EXAM: CT ABDOMEN WITHOUT CONTRAST DATE: 11/10/2017 10:31 PM [employer] SIGNAL INDICATION: - outside study ADDITIONAL INFORMATION: Study dated 11/10/2017, outside study from [facility]. History of cough, colon cancer. Additionally rectal bleeding prior to barium enema done earlier the same day. COMPARISON: None. TECHNIQUE: Volumetric CT acquisition of the abdomen after the intravenous administration contrast. Axial, coronal and sagittal reconstructions. Postcontrast phases: Venous and delayed. IV contrast: None Oral contrast: None. DLP: 598.6 mGy-cm FINDINGS: LUNG BASES: Show presence of mild subsegmental atelectasis predominantly left. Multiple calcified splenic granulomas are noted. Evaluation of the liver is limited due to lack of IV contrast. Ill-defined hypodensity noted in segment 6, image #18 of series 201, roughly measuring 2.1 x 1.5 cm in size, this may represent a metastatic lesion. Correlate with dedicated liver protocol CT or MRI. Pancreas, kidneys and adrenals appear unremarkable. Vascular calcifications are identified in the abdominal aorta, with aneurysmal dilation of the distal aorta, measuring up to 3.1 x 3.5 cm in diameter. There is a trace amount of free fluid present in the pelvis. Stomach is well distended and appears unremarkable. Visualized small bowel loops are unremarkable with no evidence of thickening, edema or obstruction. Appendix is nonvisualized. A soft tissue mass roughly measuring 7 x 5 cm (image 65 of series 201) is identified in the posterior pelvis slightly to the right of midline, most likely arising from the region of the distal rectosigm oid. The soft tissue mass appears to extend toward the right side, with ill -defined 2.4 x 1.4 cm probable collection, image 65-67 of series 201, this may represent focal abscess versus necrotic extensio n of tumor. Limited due to presence of streak artifacts from right hip prosthesis, as well as lack of IV contrast. Multiple bubbles/pockets of extraluminal air is also identified along the region of the mass, and rectosigmoid concerning for focal perforation. Multiple diverticula are also noted in the region of the sigmoid, as well as ascending colon. Residual barium is present in the region of the rectum and rectosigmoid from recent barium enema. Evaluation of the pelvis is limited due to streak artifacts by the right hip prosthesis. Osseous structures show degenerative changes of the lumbosacral spine. Right hip prosthesis is in place. IMPRESSION: 1. Soft tissue mass in region of rectosigmoid with extraluminal pockets of air concerning for underlying malignancy with perforation/necrosis. 2. Multiple sigmoid and ascending colon diverticula. 3. Ill-defined hepatic hypodensity, may represent metastatic disease. Correlate with dedicated liver protocol CT or MR for further evaluation. 4. Small infrarenal abdominal aortic aneurysm. Laboratory Bedside 94 mg/dl 65 - 120 08/[address] [facility] [address] Studies Glucose [facility] [place] [facility] Vancomycin 7.4 ug/mL 5 - 20 08/09 [facility]. Studies Level Trough [facility] [place] [facility] Segmented 91 % 40 - 80 08/09 [facility]. Studies Neutrophils [facility] [place] [facility] Monocytes Monocytes 08/09 [facility]. Studies [facility] [place] [facility] Lymphocytes 6 % 15 - 42 08/09 [facility]. Studies [facility] [place] [facility] Blood Blood 08/09 [facility]. Studies Morphology Morphology [employer] - Comment Comment [place] [facility] Band 3 % 0 - 1 08/09 [facility]. Studies Neutrophils /2016 [facility] [place] [facility] White Blood 16.5 K/uL 4.3 - 10.9 08/09 [facility]. Studies Count /2016 [facility] [place] [facility] Red Cell 19.2 % 12.1 - 08/09 [facility]. Studies Distribution 15.2 [facility] Width [place] [facility] Red Blood 3.58 M/uL 3.86 - 08/09 [facility]. Studies Count 4.86 [facility] [place] [facility] Platelet 374 K/uL 152 - 406 08/09 [facility]. Studies Count /2016 [facility] [place] [facility] Neutrophils 88.8 % 41.7 - [address] [facility] [address] Studies % 73.7 /2016 [facility] [place] [facility] Monocytes % 4.8 % 3.3 - 12.3 08/09 [facility]. Studies /2016 [facility] [place] [facility] Mean 8.9 fL 7.6 - 11.3 08/09 [facility]. Studies Platelet /2016 [facility] Volume [place] [facility] Mean 82.4 fL 80 - 100 08/[address] [facility] [address] Studies Corpuscular /2016 [facility] Volume [place] [facility] Mean 31.2 g/dL 32.0 - [address] [facility] [address] Studies Corpuscular 36.0 /2016 [facility] Hemoglobin [place] [facility] Mean 25.7 pg 27.0 - [address] [facility] [address] Studies Corpuscular 35.0 /2016 [facility] Hemoglobin [place] [facility] Lymphocytes 5.7 % 15.3 - [address] [facility] [address] Studies % 44.8 /2017 [facility] [place] [facility] Hemoglobin 9.2 g/dL 12.0 - 08/[address] [facility] [address] Studies 15.0 /2016 [facility] [place] [facility] Hematocrit 29.5 % 36.0 - [address] [facility] [address] Studies 45.0 /2016 [facility] [place] [facility] Eosinophils 0.3 % 0 - 4.4 08/[address] [facility] [address] Studies % /2016 [facility] [place] [facility] Basophils % 0.4 % 0 - 1.3 08/[address] [facility] [address] Studies /2016 [facility] [place] [facility] Absolute 14.6 K/uL 1.8 - 8.0 08/[address] [facility] [address] Studies Neutrophil [facility] [place] [facility] Absolute 0.8 K/uL 0.1 - 1.3 08/[address] [facility] [address] Studies Monocytes [facility] - (CBC) [place] [facility] Absolute 0.9 K/uL 0.7 - 4.9 08/[address] [facility] [address] Studies Lymphocytes [facility] (CBC) [place] [facility] Absolute 0.1 K/uL 0 - 0.5 08/[address] [facility] [address] Studies Eosinophils [facility] (CBC) [place] [facility] Absolute 0.1 K/uL 0 - 0.5 08/[address] [facility] [address] Studies Basophils [facility] - (CBC) [place] [facility] Sodium Level 137 mEq/L 135 - 145 08/[address] [facility] [address] Studies /2016 [facility] [place] [facility] Potassium 4.1 mEq/L 3.6 - 5.0 08/[address] [facility] [address] Studies Level [facility] [place] [facility] Glucose 102 mg/dL 65 - 120 08/[address] [facility] [address] Studies Level [facility] [place] [facility] Estimat 79 mL/min 90 08/[address] [facility] [address] Studies Glomerular [facility] Filtration [place] Rate Laboratory Creatinine 0.72 mg/dL 0.44 - [address] [facility] [address] Studies 1.00 [employer] - [place] [facility] Chloride 98 mEq/L 101 - 111 08/[address] [facility] [address] Studies Level /2016 [facility] Carbon 32 mEq/L 21 - 31 08/08 [facility]. Studies Dioxide /2016 [facility] Calcium 9.4 mg/dL 8.5 - 10.5 08/[address] [facility] [address] Studies Level /2016 [facility] Blood Urea 19 mg/dL 6 - 20 08/08 [facility]. Studies Nitrogen /2016 [facility] Procalcitoni 0.13 ng/mL 08/07 [facility]. Studies n [facility] Prealbumin null 18 - 38 08/07 [facility]. Studies /2016 [facility] Magnesium 1.7 mg/dL 1.8 - 2.5 08/07 [facility]. Studies Level /2016 [facility] Albumin 2.0 g/dL 3.2 - 5.5 08/[address] [facility] [address] Studies /2016 [facility] Polychromasi Polychroma 08/[address] [facility] [address] Studies a sadie [employer] - [place] [facility] Microcytosis Microcytos 08/[address] [facility] [address] Studies is [employer] - [place] [facility] Hypochromasi Hypochroma 08/06 [facility]. Studies a [employer] - [facility] Giant Giant 08/06 [facility]. Studies Platelets Platelets [facility] Anisocytosis Anisocytos 08/[address] [facility] [address] Studies [facility] [place] [facility] Total 0.6 mg/dL 0.3 - 1.2 08/06 [facility] [address] Studies Bilirubin /2016 [facility] [place] [facility] Serum Total 5.7 g/dL 6.0 - 8.3 08/06 [facility]. Studies Protein /2016 [employer] [facility] [place] [facility] Globulin 3.8 g/dL 2.3 - 3.5 08/[address] [facility] [address] Studies /2016 [facility] [place] [facility] Aspartate 34 IU/L 10 - 42 08/06 [facility]. Studies Amino Transf [employer] - (AST/SGOT) [facility] Alkaline 100 IU/L 42 - 121 08/06 [facility]. Studies Phosphatase /2016 [facility] [place] [facility] Albumin/Glob 0.5 1.1 - 1.8 08/06 [facility]. Studies ulin Ratio /2016 [facility] [place] [facility] Alanine 21 IU/L 10 - 60 08/06 [facility]. Studies Aminotransfe /2016 [facility] rase [place] (ALT/SGPT) Laboratory Sedimentatio 1 mm/HR 0 - 30 08/05 [facility] Studies n Rate, /2016 [facility] [place] [facility] Urine WBC null 08/[address] [facility] [address] Studies /2016 [facility] [place] [facility] Urine null 08/04 [facility]. Studies Squamous /2016 [facility] Epithelial [place] Cells Laboratory Urine RBC Urine RBC 08/04 [facility]. Studies /2016 [facility] [place] [facility] Urine Mucus Urine 08/04 [facility]. Studies Mucus /2016 [facility] [place] [facility] Urine Urine 08/04 [facility] Studies Culture Culture /2016 [facility] Reflexed Reflexed [place] [facility] Urine null 08/04 [facility] Studies Bacteria /2016 [facility] [place] [facility] Urine pH 5.0 08/04 [facility]. Studies /2016 [facility] [place] [facility] Urine 0.2 mg/dL 08/04 [facility] Studies Urobilinogen /2016 [facility] [place] [facility] Urine Total Urine 08/04 [facility] Studies Protein Total /2016 [facility] Protein [place] [facility] Urine 1.025 08/04 [facility]. Studies Specific /2016 [facility] [place] [facility] Urine Urine 08/04 [facility] Studies Nitrite Nitrite /2016 [facility] [place] [facility] Urine Urine 08/04 [facility] Studies Leukocyte Leukocyte /2016 [facility] Esterase Esterase [place] [facility] Urine Urine 08/04 [facility] Studies Ketones Ketones /2016 [facility] [place] [facility] Urine Urine 08/04 [facility] Studies Glucose Glucose /2016 [facility] [place] [facility] Urine Color Urine 08/04 [facility] Studies Color /2016 [facility] [place] [facility] Urine Blood Urine 08/04 [facility] Studies Blood /2016 [facility] [place] [facility] Urine Urine 08/04 [facility] Studies Bilirubin Bilirubin /2016 [facility] [place] [facility] Urine Urine 08/04 [facility] Studies Appearance Appearance /2016 [facility] [place] [facility] Lactate 156 IU/L 125 - 240 08/[address] [facility] [address] Studies Dehydrogenas /2016 [facility] e [place] [facility] Target Cells Target 08/[address] [facility] [address] Studies Cells [facility] [place] [facility] Poikilocytos Poikilocyt 08/[address] [facility] [address] Studies is osis [facility] [place] [facility] Eosinophils 1 % 0 - 3 08/[address] [facility] [address] Studies [facility] [place] [facility] Basophils 1 % 0 - 1 08/[address] [facility] [address] Studies [facility] [place] [facility] Phosphorus 3.2 mg/dL 2.5 - 4.3 07/[address] [facility] [address] Studies Level /2016 [facility] [place] [facility] Prothrombin 12.3 9.5 - 12.5 07/[address] [facility] [address] Studies Time SECONDS [facility] [place] [facility] INR 1.04 07/[address] [facility] [address] Studies Internationa [employer] - l Normalized [place] Ratio Laboratory Activated 28.9 24.3 - 07/28 [facility]. Studies Partial SECONDS 36.9 [employer] - Thromboplast [place] Time Laboratory Erythropoiet 17.3 07/[address] [facility] [address] Studies in mIU/mL [facility] [place] [facility] Serum Folate null 5.21 07/[address] [facility] [address] Studies [facility] [place] [facility] Vitamin B12 728 pg/ml 180 - 914 07/[address] [facility] [address] Studies /2016 [facility] [place] [facility] Transferrin 8.9 % 20.0 - 07/[address] [facility] [address] Studies % Saturation 50.0 [facility] [place] [facility] Transferrin 184 mg/dL 192 - 382 07/[address] [facility] [address] Studies [facility] [place] [facility] Total Iron 258 ug/dL 250 - 460 07/[address] [facility] [address] Studies Binding /2016 [facility] Capacity [place] [facility] Iron Level 23.0 ug/dL 28 - 170 07/[address] [facility] [address] Studies [facility] [place] [facility] Ferritin 69.6 ng/ml 11.0 - 07/[address] [facility] [address] Studies 306.8 [facility] [place] [facility] Direct 0.1 mg/dL 0 - 0.2 06/30 [facility] [address] Studies Bilirubin [facility] [place] [facility] Rapid null 06/30 [facility]. Studies Troponin I [employer] - [place] [facility] Lipase 19 U/L 22 - 51 06/[address] [facility] [address] Studies [facility] [place] [facility] CA 19-9 10 U/mL 06/[address] [facility] [address] Studies Antigen [facility] [place] [facility] Carcinoembry 1.7 ng/ml 0 - 3.0 06/[address] [facility] [address] Studies onic Antigen [facility] [place] [facility] Urine Urine 06/[address] [facility] [address] Studies Amorphous Amorphous [facility] Sediment Sediment [place] [facility] Creatine 51 IU/L 22 - 269 06/[address] [facility] [address] Studies Kinase /2016 [facility] [place] [facility] Amylase 54 U/L 28 - 100 06/[address] [facility] [address] Studies Level /2016 [facility] [place] [facility] Creatine 1.2 ng/ml 0.3 - 4.0 06/[address] [facility] [address] Studies Kinase MB [facility] [place] [facility] B-Type 198 pg/ml 06/[address] [facility] [address] Studies Natriuretic [facility] Peptide [place] [facility] Escherichia Escherichi 05/[address] [facility] [address] gy Studies Coli a Coli [facility] [place] [facility] Troponin I 1.25 ng/mL 05/[address] [facility] [address] Studies /2016 [facility] [place] [facility] Triglyceride 107 mg/dL 35 - 160 05/[address] [facility] [address] Studies s Level [facility] [place] [facility] LDL 45 05/[address] [facility] [address] Studies Cholesterol, /2016 [facility] Calculated [place] [facility] HDL 37 mg/dL 29 - 89 05/[address] [facility] [address] Studies Cholesterol /2016 [facility] [place] [facility] Cholesterol/ 2.78 05/22 [facility]. Studies HDL Ratio /2016 [facility] [place] [facility] Cholesterol 103 mg/dL 05/[address] [facility] [address] Studies Level /2016 [facility] [place] [facility] Urine Urine 05/[address] [facility] [address] Studies Calcium Calcium [facility] Oxalate Oxalate [place] Crystals Crystals Laboratory Hemoglobin 5.7 % 4 - 6.0 05/[address] [facility] [address] Studies A1c [facility] [place] Vital Signs Vital Sign Value Date Comments Source Systolic (mm Hg) 163 03/20/2018 [facility] Diastolic (mm Hg) 70 03/20/2018 [facility] Systolic (mm Hg) 128 03/20/2018 [facility] Diastolic (mm Hg) 58 03/20/2018 [facility] Respitory Rate 15 03/20/2018 [facility] Respitory Rate 20 03/20/2018 [facility] Systolic (mm Hg) 113 03/20/2018 [facility] Diastolic (mm Hg) 56 03/20/2018 [facility] Respitory Rate 18 03/20/2018 [facility] Heart Rate 53 03/20/2018 [facility] BMI Calculated 19.78 03/20/2018 [facility] Weight 52.273 03/20/2018 [facility] Height 162.56 cm 03/20/2018 [facility] Weight 52.273 03/13/2018 [facility] BMI Calculated 19.78 03/13/2018 [facility] Height 162.56 cm 03/13/2018 [facility] Systolic (mm Hg) 129 11/30/2017 [facility] Diastolic (mm Hg) 72 11/30/2017 [facility] Heart Rate 75 11/30/2017 [facility] Temperature Oral (F) 98.2 F 11/30/2017 [facility] Respitory Rate 18 11/30/2017 [facility] Respitory Rate 20 11/30/2017 [facility] Systolic (mm Hg) 118 11/30/2017 [facility] Diastolic (mm Hg) 70 11/30/2017 [facility] Temperature Oral (F) 98.2 F 11/30/2017 [facility] Heart Rate 61 11/30/2017 [facility] Temperature Oral (F) 97.6 F 11/30/2017 [facility] Respitory Rate 18 11/30/2017 [facility] Heart Rate 60 11/30/2017 [facility] Systolic (mm Hg) 133 11/30/2017 [facility] Diastolic (mm Hg) 60 11/30/2017 [facility] BMI Calculated 20.66 11/27/2017 [facility] Weight 54.602 11/27/2017 [facility] Height 162.56 cm 11/27/2017 [facility] Temperature Oral (F) 98.4 F 11/14/2017 [facility] Respitory Rate 18 11/14/2017 [facility] Heart Rate 58 11/14/2017 [facility] Systolic (mm Hg) 150 11/14/2017 [facility] Diastolic (mm Hg) 75 11/14/2017 [facility] Respitory Rate 18 11/14/2017 [facility] Heart Rate 60 11/14/2017 [facility] Temperature Oral (F) 98.5 F 11/14/2017 [facility] Systolic (mm Hg) 127 11/14/2017 [facility] Diastolic (mm Hg) 70 11/14/2017 [facility] Systolic (mm Hg) 134 11/14/2017 [facility] Diastolic (mm Hg) 72 11/14/2017 [facility] Heart Rate 59 11/14/2017 [facility] Respitory Rate 18 11/14/2017 [facility] Temperature Oral (F) 98.5 F 11/14/2017 [facility] Weight 57.784 11/11/2017 [facility] Weight 57.818 11/11/2017 [facility] BMI Calculated 21.88 11/11/2017 [facility] Height 162.56 cm 11/11/2017 [facility] Weight 58.636 11/11/2017 [facility] Heart Rate 72 08/12/[address] [facility] [place] Systolic (mm Hg) 125 08/12/[address] [facility] [place] Diastolic (mm Hg) 71 08/12/[address] [facility] [place] Temperature Oral (F) 96.1 F 08/12/[address] [facility] [place] Respitory Rate 16 08/12/[address] [facility] [place] Height 64 08/09/[address] [facility] [place] Weight 136 08/09/[address] [facility] [place] Encounters Location Location Encounter Encounter Reason Attending ADM DC Status Source Details Type Number For Provider Date Date Visit [facility] [id number] 05/21 05/[address] [facility] [place] [facility] [id number] 06/23 06/[address] [facility] [place] [facility] [id number] 06/30 07/[address] [facility] [place] [facility] [id number] 07/07 07/[address] [facility] [place] [facility] Reg[facility] [id number] 07[facility] [facility] [place] [facility] [id number] 07[facility] [facility] [place] [facility] [id number] 07/28 07/[address] [facility] [place] [facility] [id number] 07/28 07/[address] [facility] [place] [facility] [id number] 07/31 08/[address] [facility] [facility] [place] [facility] [id number] [place] 10/29 10/29 [facility] Outpatient 0 [facility] Inpatient [id number] Thad 11/11 11/14 [facility] [address] [facility] Observation [id number] Thad 11/27 11/30 [facility] [address] [facility] Phone [id number] 02/24 02/26 [facility] [place] [facility] [id number] Pedro 03/20 03/21 [facility] [address] [facility] Outpatient [id number] JOSÉ MIGUEL 05/05 [facility] 0 [facility] Outpatient [id number] JOSÉ MIGUEL 08/05 [facility] 1 [facility] [place] Outpatient [id number] JOSÉ MIGUEL 11/04 [facility] 2 [facility] [place] Procedures Procedure Code Date Perfomer Comments Source Image-guided 56290 [facility] fluid collection [address] [place] [address] drainage by catheter (eg, abscess, hematoma, seroma, lymphocele, cyst); peritoneal or retroperitoneal, percutaneous Occult Blood [facility] [place] Pelvis Wo Cont [id number] [facility] 7 - [place] Anaerobic Blood [id number] [facility] Culture 7 [facility] [place] Aerobic Blood [id number] [facility] [place] Count [id number] [facility] [place] [id number] [facility] [place] Head Brain Wo [id number] [facility] Cont 7 - [place] Hip Right [id number] [facility] [place] Chest Single View [id number] [facility] [place] Hip Right [id number] [facility] [place] Pelvis [id number] [facility] [place] Count [id number] [facility] [place] [id number] [facility] [place] Hip Right 2 View [id number] [facility] [place] Pelvis [id number] [facility] [place] REPLACE OF R HIP [id number] [facility] JT, FEMORAL WITH 7 - [place] SYNTH SUB, OPEN APPROACH Ova and Parasites [id number] [facility] [place] Culture & [id number] [facility] Sensitivity 7 - [place] Abdomen & Pelvis [id number] [facility] Wo Contrast 7 - [place] Chest Single View [id number] [facility] [place] Procedure on hip [id number] EDDC 7 Procedure on hip [id number] [address] Bypass [id number] EDDC 7 Bypass [id number] [address] [place] Count [id number] [facility] [place] [id number] [facility] [place] Chest Single View [id number] [facility] [place] PLAIN RADIOGRAPHY [id number] 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
--- OUTSIDE RECORDS SUMMARY | 2018-11-09 09:55 | XMS REPORT | Summary of Care ---
:1940 Author Organization [facility] Address [address] [place] [id number]- Encounter HQ Eliasr_guero(FIN) [phone] Date(s): 11/10/17 - 11/14/[address] Professional Services provided by [facility] [place] [place] [address]- Encounter Diagnosis Perforation of intestine (nontraumatic) (Final) - 11/19/17 Urinary tract infection, site not specified (Final) - Unspecified protein-calorie malnutrition (Final) - Type 2 diabetes mellitus with diabetic chronic kidney disease (Final) - Emphysema, unspecified (Final) - Anemia, unspecified (Final) - Unspecified dementia without behavioral disturbance (Final) - Chronic kidney disease, unspecified (Final) - Hypothyroidism, unspecified (Final) - Liver disease, unspecified (Final) - Atherosclerotic heart disease of [place] coronary artery without angina pectoris (Final) - Elevated white blood cell count, unspecified (Final) - Presence of aortocoronary bypass graft (Final) - 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 (Final) - 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 (Final) - Personal history of other diseases of the circulatory system (Final) - Body mass index (BMI) 21.0-21.9, adult (Final) - Discharge Disposition: Home or Self Care Attending Physician: Orville Rome MD Admitting Physician: Orville Rome MD Referring Physician: Thad Reyez MD Vital Signs Most recent to oldest [Reference 1 2 3 Range]: Height 162.56 cm (11/11/17 3:31 AM) Temperature Oral [96.4-99.1 DegF] 98.4 DegF 98.5 DegF 98.5 DegF (11/14/17 7:57 AM) (11/14/17 4:00 AM) (11/13/17 11:27 PM) Blood Pressure [90-140/60-90 150/75 mmHg 127/70 mmHg 134/72 mmHg mmHg] *HI* (11/14/17 4:00 AM) (11/13/17 11:27 PM) (11/14/17 7:57 AM) Respiratory Rate [14-20 BRMIN] 18 BRMIN 18 BRMIN 18 BRMIN (11/14/17 7:57 AM) (11/14/17 4:00 AM) (11/13/17 11:27 PM) Peripheral Pulse Rate [60-100 58 bpm 60 bpm 59 bpm bpm] *LOW* (11/14/17 4:00 AM) *LOW* (11/14/17 7:57 AM) (11/13/17 11:27 PM) Weight 57.784 kg 57.818 kg 58.636 kg (11/11/17 6:54 AM) (11/11/17 3:31 AM) (11/10/17 9:02 PM) Body Mass Index 21.88 m2 (11/11/17 3:31 AM) Problem List Condition Effective Dates Status Health Status Informant Coronary artery disease(Confirmed) Active Dementia(Confirmed) Active Depression(Confirmed) Active Dyslipidemia(Confirmed) Active S/p AAA repair(Confirmed) Active Hypertension(Confirmed) Active Hypothyroidism(Confirmed) Active Liver lesion(Confirmed) Active Diabetes mellitus type II, non insulin Active dependent(Confirmed) Allergies, Adverse Reactions, Alerts Substance Reaction Severity Status azithromycin Active iodine Active Medications aspirin 81 mg, PO, Daily, 0 Refill(s) Start Date: 11/11/17 Stop Date: 11/14/17 Status: Discontinuedaspirin 81 mg tablet, chewable 81 mg, 1 tab, Route: PO, Drug form: CHEWTAB, Daily, Dosing Weight 57.784, kg, Start date: 11/12/17 9:00:00 JOURNEYMAN PIPE FITTER, Duration: 30 day, Stop date: 12/11/17 9:00:00 CDT Notes: Take with food. Start Date: 11/12/17 Stop Date: 11/13/17 Status: Discontinuedatorvastatin 40 mg, 1 tab, Route: PO, Drug form: TAB, Bedtime, Dosing Weight 58.636, kg, Start date: 11/11/17 21:00:00 JOURNEYMAN PIPE FITTER, Duration: 30 day, Stop date: 12/10/17 21:00: 00 CDT Notes: (Same as: Lipitor) Start Date: 11/11/17 Stop Date: 11/14/17 Status: Discontinuedatorvastatin 40 mg oral tablet 40 mg=1 tab, PO, Bedtime, # 30 tab, 0 Refill(s) Start Date: 11/11/17 Status: Orderedciprofloxacin 400 mg, 200 mL, Route: IVPB, Drug form: INJ, [id number], Dosing Weight 58.636, kg, Priority: STAT, Start date: 11/11/17 0:14:00 JOURNEYMAN PIPE FITTER, Duration: 10 day, Stop date: 11/20/17 12:14:00 CDT, ABX Indication: Intra-abdominal Infection Notes: Do not refrigerate Start Date: 11/11/17 Stop Date: 11/14/17 Status: Discontinuedciprofloxacin 500 mg oral tablet 500 mg=1 tab, PO, Q12H, X 3 day, # 6 tab, 0 Refill(s) Start Date: 11/14/17 Stop Date: 11/17/17 Status: CompletedDextrose 50% Syringe 25 gm, 50 mL, Route: IVP, Drug Form: INJ, Dosing Weight 58.636, kg, PRN, PRN Blood Glucose Results, Start date: 11/11/17 0:25:00 JOURNEYMAN PIPE FITTER, Duration: 30 day, Stop date: 12/11/17 1:24:00 CDT Start Date: 11/11/17 Stop Date: 11/14/17 Status: DiscontinuedDextrose 50% Syringe 12.5 gm, 25 mL, Route: IVP, Drug Form: INJ, Dosing Weight 58.636, kg, PRN, PRN Blood Glucose Results, Start date: 11/11/17 0:25:00 JOURNEYMAN PIPE FITTER, Duration: 30 day, Stop date: 12/11/17 1:24:00 CDT Start Date: 11/11/17 Stop Date: 11/14/17 Status: DiscontinueddiphenhydrAMINE 50 mg, 2 cap, Route: PO, Drug form: CAP, ONCE, Dosing Weight 57.784, kg, Start date: 11/12/17 6:00:00 JOURNEYMAN PIPE FITTER, Stop date: 11/12/17 6:00:00 JOURNEYMAN PIPE FITTER Notes: (Same as: Benadryl) Start Date: 11/12/17 Stop Date: 11/12/17 Status: Completeddocusate sodium 100 mg oral capsule 100 mg, 1 cap, Route: PO, Drug form: CAP, BID, Dosing Weight 58.636, kg, PRN Constipation, Start date: 11/11/17 0:14:00 JOURNEYMAN PIPE FITTER, Duration: 30 day, Stop date: 01/23 0:13:00 CDT Notes: (Same as: Colace) (Do Not Crush) Start Date: 11/11/17 Stop Date: 11/14/17 Status: Discontinueddonepezil 10 mg, 2 tab, Route: PO, Drug form: TAB, Daily, Dosing Weight 58.636, kg, Start date: 11/11/17 9:00:00 JOURNEYMAN PIPE FITTER, Duration: 30 day, Stop date: 12/10/17 9:00:00 CDT Notes: (Same as: Aricept) Start Date: 11/11/17 Stop Date: 11/14/17 Status: Discontinueddonepezil 10 mg oral tablet 10 mg=1 tab, PO, Daily, # 30 tab, 0 Refill(s) Start Date: 11/11/17 Stop Date: 05/05/18 Status: Discontinuedenoxaparin 40 mg, 0.4 mL, Route: SUB-Q, Drug form: INJ, [id number], Dosing Weight 58.636, kg , Start date: 11/11/17 1:00:00 JOURNEYMAN PIPE FITTER, Duration: 30 day, Stop date: 12/10/17 1:00: 00 CDT Notes: (Same as: Lovenox) Start Date: 11/11/17 Stop Date: 11/11/17 Status: DiscontinuedFlagyl 500 mg, 100 mL, Route: IVPB, Drug form: INJ, Q8H, Dosing Weight 58.636, kg, Priority: STAT, Start date: 11/11/17 0:14:00 JOURNEYMAN PIPE FITTER, Duration: 10 day, Stop date: 11/21/17 0:00:00 CDT, ABX Indication: Intra-abdominal Infection Notes: (Same as: Flagyl) Avoid alcohol. Start Date: 11/11/17 Stop Date: 11/14/17 Status: DiscontinuedFlagyl 500 mg oral tablet 500 mg=1 tab, PO, Q8H, X 3 day, # 9 tab, 0 Refill(s) Start Date: 11/14/17 Stop Date: 11/17/17 Status: Completedglucagon 1 mg, Route: IM, Drug form: PDR/INJ, PRN, Dosing Weight 58.636, kg, PRN Blood Glucose Results, Startdate: 11/11/17 0:25:00 JOURNEYMAN PIPE FITTER, Duration: 30 day, Stop date: 12/11/17 1:24:00 CDT Start Date: 11/11/17 Stop Date: 11/14/17 Status: DiscontinuedHabitrol 14 mg/24 hr transdermal film, extended release =1 patch, TOP, Daily, X 30 day, # 30 patch, 0 Refill(s) Start Date: 11/14/17 Stop Date: 12/14/17 Status: CompletedHemocyte Plus 1 cap, PO, Daily, 0 Refill(s) Start Date: 11/11/17 Status: Orderedheparin 5,000 unit, 1 mL, Route: SUB-Q, Drug form: INJ, Q8H, Dosing Weight 57.818, kg, Start date: 11/11/17 8:00:00 JOURNEYMAN PIPE FITTER, Duration: 30 day, Stop date: 12/11/17 0:00:00 CDT Notes: porcine heparin Start Date: 11/11/17 Stop Date: 11/14/17 Status: Discontinuedinsulin lispro 5 unit, 0.05 mL, Route: SUB-Q, Drug form: SOLN, Sliding Scale, Dosing Weight 58.636, kg, PRN Blood Glucose Results, Start date: 11/11/17 0:25:00 JOURNEYMAN PIPE FITTER, Duration: 30 day, Stop date: 12/11/17 1:24:00 CDT Notes: (Same as: Humalog ) Roll in palms of hands gently; Do not shake ` vigorously. "Single PatientUse Only " WASTE: F/P - Black; E - Municipal Trash Bin Stable for 28 days at room temperature.Expires in days from Date Start Date: 11/11/17 Stop Date: 11/14/17 Status: Discontinuedinsulin lispro 4 unit, 0.04 mL, Route: SUB-Q, Drug form: SOLN, Sliding Scale, Dosing Weight 58.636, kg, PRN Blood Glucose Results, Start date: 11/11/17 0:25:00 JOURNEYMAN PIPE FITTER, Duration: 30 day, Stop date: 12/11/17 1:24:00 CDT Notes: (Same as: Humalog ) Roll in palms of hands gently; Do not shake ` vigorously. "Single PatientUse Only " WASTE: F/P - Black; E - Municipal Trash Bin Stable for 28 days at room temperature.Expires in days from Date Start Date: 11/11/17 Stop Date: 11/14/17 Status: Discontinuedinsulin lispro 2 unit, 0.02 mL, Route: SUB-Q, Drug form: SOLN, Sliding Scale, Dosing Weight 58.636, kg, PRN Blood Glucose Results, Start date: 11/11/17 0:25:00 JOURNEYMAN PIPE FITTER, Duration: 30 day, Stop date: 12/11/17 1:24:00 CDT Notes: (Same as: Humalog ) Roll in palms of hands gently; Do not shake ` vigorously. "Single PatientUse Only " WASTE: F/P - Black; E - Municipal Trash Bin Stable for 28 days at room temperature.Expires in days from Date Start Date: 11/11/17 Stop Date: 11/14/17 Status: Discontinuedinsulin lispro 1 unit, 0.01 mL, Route: SUB-Q, Drug form: SOLN, Sliding Scale, Dosing Weight 58.636, kg, PRN Blood Glucose Results, Start date: 11/11/17 0:25:00 JOURNEYMAN PIPE FITTER, Duration: 30 day, Stop date: 12/11/17 1:24:00 CDT Notes: (Same as: Humalog ) Roll in palms of hands gently; Do not shake ` vigorously. "Single PatientUse Only " WASTE: F/P - Black; E - Municipal Trash Bin Stable for 28 days at room temperature.Expires in days from Date Start Date: 11/11/17 Stop Date: 11/14/17 Status: Discontinuedinsulin lispro 3 unit, 0.03 mL, Route: SUB-Q, Drug form: SOLN, Sliding Scale, Dosing Weight 58.636, kg, PRN Blood Glucose Results, Start date: 11/11/17 0:25:00 JOURNEYMAN PIPE FITTER, Duration: 30 day, Stop date: 12/11/17 1:24:00 CDT Notes: (Same as: Humalog ) Roll in palms of hands gently; Do not shake ` vigorously. "Single PatientUse Only " WASTE: F/P - Black; E - Municipal Trash Bin Stable for 28 days at room temperature.Expires in days from Date Start Date: 11/11/17 Stop Date: 11/14/17 Status: DiscontinuedIsolyte S PH 7.4 1,000 mL 1,000 mL, Rate: 100 ml/hr, Infuse over: 10 hr, Route: IV, Dosing Weight 58.636 kg, Total Volume: 1,000, Start date: 11/11/17 0:14:00 JOURNEYMAN PIPE FITTER, Duration: 30 day, Stop date: 12/11/17 0:13:00 CDT Notes: (Same as: Isolyte S PH 7.4) Start Date: 11/11/17 Stop Date: 11/14/17 Status: DiscontinuedLasix 20 mg oral tablet 20 mg, 1 tab, Route: PO, Drug form: TAB, Daily, Dosing Weight 58.636, kg, Start date: 11/11/17 9:00:00 JOURNEYMAN PIPE FITTER, Duration: 30 day, Stop date: 12/10/17 9:00:00 CDT Notes: (Same as: Lasix) May cause GI upset. Give with food or milk. Start Date: 11/11/17 Stop Date: 11/14/17 Status: DiscontinuedLasix 20 mg oral tablet 20 mg=1 tab, PO, PRN, # 30 tab, 0 Refill(s) Start Date: 11/11/17 Status: Orderedlevothyroxine 25 microgram, 1 tab, Route: PO, Drug form: TAB, [id number], Dosing Weight 58.636, kg , Start date: 11/11/17 6:30:00 JOURNEYMAN PIPE FITTER, Duration: 30 day, Stop date: 12/10/17 6:30: 00 CDT Notes: Take 1 hour before or 2 hours after meal; Enteral feeds may interefere with the absorption ofthis medication. (Same as:Levothroid) Start Date: 11/11/17 Stop Date: 11/14/17 Status: Discontinuedlevothyroxine 25 mcg (0.025 mg) oral tablet 25 microgram=1 tab, PO, Daily, # 30 tab, 0 Refill(s) Start Date: 11/11/17 Status: OrderedLexapro 10 mg, 1 tab, Route: PO, Drug form: TAB, Daily, Dosing Weight 58.636, kg, Start date: 11/11/17 9:00:00 JOURNEYMAN PIPE FITTER, Duration: 30 day, Stop date: 12/10/17 9:00:00 CDT Notes: (Same as: Lexapro) Start Date: 11/11/17 Stop Date: 11/14/17 Status: DiscontinuedLexapro 10 mg oral tablet 10 mg=1 tab, PO, Daily, # 30 tab, 0 Refill(s) Start Date: 11/11/17 Status: Orderedlisinopril 2.5 mg, PO, Daily, 0 Refill(s) Start Date: 11/11/17 Status: Orderedlisinopril 2.5 mg, 1 tab, Route: PO, Drug form: TAB, Daily, Dosing Weight 58.636, kg, Start date: 11/11/17 9:00:00 JOURNEYMAN PIPE FITTER, Duration: 30 day, Stop date: 12/10/17 9:00:00 CDT Notes: (Same as: Prinivil) Start Date: 11/11/17 Stop Date: 11/14/17 Status: Discontinuedmegestrol 40 mg oral tablet 40 mg=1 tab, PO, BID, 0 Refill(s) Start Date: 11/11/17 Status: Orderedmelatonin 1 mg, 1 mL, Route: PO, Drug form: LIQ, Bedtime, Dosing Weight 57.784, kg, Start date: 11/11/17 21:00:00 JOURNEYMAN PIPE FITTER, Duration: 30 day, Stop date: 12/10/17 21:00:00 CDT Start Date: 11/11/17 Stop Date: 11/14/17 Status: DiscontinuedmetFORMIN 500 mg, PO, BID, 0 Refill(s) Start Date: 11/11/17 Status: Orderedmetoprolol 25 mg oral tablet, extended release 25 mg=1 tab, PO, Daily, # 30 tab, 0 Refill(s) Start Date: 11/11/17 Status: Orderednicotine 14 mg, 1 patch, Route: TOP, Drug form: ERFILM, Daily, Dosing Weight 57.784, kg, Start date: 11/12/1811:39:00 JOURNEYMAN PIPE FITTER, Duration: 30 day, Stop date: 12/11/17 9:00:00 CDT Notes: (Same as: Habitrol)"Remove old patch before application of new patch "WASTE: F/P - P Waste Black; E - P Waste Black Start Date: 11/11/17 Stop Date: 11/14/17 Status: Discontinuednicotine 21 mg/24 hr transdermal film, extended release =1 patch, Transdermal, Daily, 0 Refill(s) Start Date: 11/11/17 Stop Date: 11/14/17 Status: Discontinuedondansetron 4 mg oral tablet 4 mg=1 tab, PO, PRN, 0 Refill(s) Start Date: 11/11/17 Status: OrderedPlavix 75 mg oral tablet 75 mg=1 tab, PO, Daily, # 30 tab, 0 Refill(s) Start Date: 11/11/17 Stop Date: 11/14/17 Status: DiscontinuedpredniSONE 50 mg, 5 tab, Route: PO, Drug form: TAB, ONCE, Dosing Weight 57.784, kg, Start date: 11/12/17 6:00:00 JOURNEYMAN PIPE FITTER, Stop date: 11/12/17 6:00:00 JOURNEYMAN PIPE FITTER Notes: (Same as: PredniSONE) Take with food. Start Date: 11/12/17 Stop Date: 11/12/17 Status: CompletedpredniSONE 50 mg, 5 tab, Route: PO, Drug form: TAB, ONCE, Dosing Weight 57.784, kg, Start date: 11/12/17 0:01:00 JOURNEYMAN PIPE FITTER, Stop date: 11/12/17 0:01:00 JOURNEYMAN PIPE FITTER Notes: (Same as: PredniSONE) Take with food. Start Date: 11/12/17 Stop Date: 11/12/17 Status: CompletedpredniSONE 50 mg, 5 tab, Route: PO, Drug form: TAB, ONCE, Dosing Weight 57.784, kg, Start date: 11/11/17 18:00:00 JOURNEYMAN PIPE FITTER, Stop date: 11/11/17 18:00:00 JOURNEYMAN PIPE FITTER Notes: (Same as: PredniSONE) Take with food. Start Date: 11/11/17 Stop Date: 11/11/17 Status: CompletedRemeron 30 mg, 2 tab, Route: PO, Drug form: TAB, Bedtime, Dosing Weight 58.636, kg, Start date: 11/11/17 21:00:00 JOURNEYMAN PIPE FITTER, Duration: 30 day, Stop date: 12/10/17 21:00: 00 CDT Notes: (Same as:Remeron) Start Date: 11/11/17 Stop Date: 11/14/17 Status: DiscontinuedRemeron 30 mg oral tablet 30 mg=1 tab, PO, Bedtime, # 30 tab, 0 Refill(s) Start Date: 11/11/17 Stop Date: 03/13/18 Status: Completedremove patch 1 patch, Route: TOP, Drug form: ERFILM, Daily, Start date: 11/12/17 9:00:00 JOURNEYMAN PIPE FITTER , Duration: 30 day, Stop date: 12/11/17 9:00:00 CDT Notes: Remove old patch before application of new patch.WASTE: F/P - P Waste Black; E - P Waste Black Start Date: 11/12/17 Stop Date: 11/14/17 Status: DiscontinuedToprol-XL 25 mg oral tablet, extended release 25 mg, 1 tab, Route: PO, Drug form: ERTAB, Daily, Start date: 11/11/17 9:00:00 JOURNEYMAN PIPE FITTER, Duration: 30 day, Stop date: 12/10/17 9:00:00 CDT Start Date: 11/11/17 Stop Date: 11/14/17 Status: DiscontinuedVisipaque 320mg/ml 100 mL, Route: IVP, Drug Form: SOLN, Dosing Weight 57.784, kg, ONCALL, STAT, Start date: 11/12/17 7:18:00 JOURNEYMAN PIPE FITTER, Duration: 1 doses or times, Dose=2.2ml/kg, Max [id number] -- "To be infused by Radiology Staff ONLY" Notes: (Same as: Visipaque).WASTE: F/P - Black; E - Municipal Trash Bin Start Date: 11/12/17 Stop Date: 11/14/17 Status: Discontinuedzolpidem 5 mg oral tablet 5 mg=1 tab, PO, PRN, 0 Refill(s) Start Date: 11/11/17 Stop Date: 08/05/18 Status: Discontinued Results ELECTROLYTES Most recent to oldest 1 2 3 [Reference Range]: Sodium Lvl [135-145 mEq/L] 146 mEq/L 145 mEq/L 140 mEq/L *HI* (11/13/17 3:33 AM) (11/12/17 6:21 AM) (11/14/17 3:40 AM) Potassium Lvl [3.5-5.1 mEq/L] 3.2 mEq/L 3.4 mEq/L 4.3 mEq/L *LOW* *LOW* (11/12/17 6:21 AM) (11/14/17 3:40 AM) (11/13/17 3:33 AM) Chloride Lvl [95-109 mEq/L] 107 mEq/L 107 mEq/L 105 mEq/L (11/14/17 3:40 AM) (11/13/17 3:33 AM) (11/12/17 6:21 AM) CO2 [24-32 mEq/L] 30 mEq/L 29 mEq/L 25 mEq/L (11/14/17 3:40 AM) (11/13/17 3:33 AM) (11/12/17 6:21 AM) AGAP [10.0-20.0 mEq/L] 12.2 mEq/L 12.4 mEq/L 14.3 mEq/L (11/14/17 3:40 AM) (11/13/17 3:33 AM) (11/12/17 6:21 AM) CHEM PANEL Most recent to oldest 1 2 3 [Reference Range]: Creatinine Lvl [0.50-1.40 0.90 mg/dL 0.91 mg/dL 1.09 mg/dL mg/dL] (11/14/17 3:40 AM) (11/13/17 3:33 AM) (11/12/17 6:21 AM) eGFR 62 mL/min/1.73m2 1 61 mL/min/1.73m2 2 49 mL/min/1.73m2 3 *NA* *NA* *NA* (11/14/17 3:40 AM) (11/13/17 3:33 AM) (11/12/17 6:21 AM) BUN [7-22 mg/dL] 11 mg/dL 14 mg/dL 14 mg/dL (11/14/17 3:40 AM) (11/13/17 3:33 AM) (11/12/17 6:21 AM) Glucose Lvl [70-99 mg/dL] 95 mg/dL 111 mg/dL 175 mg/dL (11/14/17 3:40 AM) *HI* *HI* (11/13/17 3:33 AM) (11/12/17 6:21 AM) Calcium Lvl [8.5-10.5 mg/dL] 8.2 mg/dL 8.3 mg/dL 9.0 mg/dL *LOW* *LOW* (11/12/17 6:21 AM) (11/14/17 3:40 AM) (11/13/17 3:33 AM) Lactic Acid Lvl [0.5-2.2 1.2 mMol/L 2.4 mMol/L mMol/L] (11/11/17 5:26 AM) *HI* (11/10/17 11:45 PM) Lactic Acid WB [0.5-2.2 2.3 mmol/L mmol/L] *HI* (11/10/17 10:31 PM) 1Result Comment: The eGFR is calculated using the CKD-EPI formula. In most young , healthy individualsthe eGFR will be >90 mL/min/1.73m2. The eGFR declines with age. An eGFR of 60-89 may be normal insome populations, particularly the elderly, for whom the CKD-EPI formula has not been extensively validated. Use of the eGFR is not recommended in the following populations: Individuals with unstable creatinine concentrations, including patients and those with serious co-morbid conditions. Patients with extremes in muscle mass or diet. The data above are obtained from the National Kidney Disease Education Program ( NKDEP) which additionally recommends that when the eGFR is used in patients with extremes of body mass index for purposesof drug dosing, the eGFR should be multiplied by the estimated BMI.2Result Comment: The eGFR is calculated using the CKD-EPI formula. In most young, healthy individualsthe eGFR will be >90 mL/min/1.73m2. The eGFR declines with age. An eGFR of 60-89 may be normal insome populations, particularly the elderly, for whom the CKD-EPI formula has not been extensively validated. Use of the eGFR is not recommended in the following populations: Individuals with unstable creatinine concentrations, including patients and those with serious co-morbid conditions. Patients with extremes in muscle mass or diet. The data above are obtained from the National Kidney Disease Education Program ( NKDEP) which additionally recommends that when the eGFR is used in patients with extremes of body mass index for purposesof drug dosing, the eGFR should be multiplied by the estimated BMI.3Result Comment: The eGFR is calculated using the CKD-EPI formula. In most young, healthy individualsthe eGFR will be >90 mL/min/1.73m2. The eGFR declines with age. An eGFR of 60-89 may be normal insome populations, particularly the elderly, for whom the CKD-EPI formula has not been extensively validated. Use of the eGFR is not recommended in the following populations: Individuals with unstable creatinine concentrations, including patients and those with serious co-morbid conditions. Patients with extremes in muscle mass or diet. The data above are obtained from the National Kidney Disease Education Program ( NKDEP) which additionally recommends that when the eGFR is used in patients with extremes of body mass index for purposesof drug dosing, the eGFR should be multiplied by the estimated BMI.URINE AND STOOL Most recent to oldest [Reference Range]: 1 2 3 UA Turbidity [Clear] Slight Cloudy (11/10/17 10:50 PM) UA Color [Yellow] Yellow *NA* (11/10/17 10:50 PM) UA pH [5.0-8.0] 5.5 (11/10/17 10:50 PM) UA Spec Grav [<=1.030] >=1.030 *ABN* (11/10/17 10:50 PM) UA Glucose [Negative] Negative (11/10/17 10:50 PM) UA Blood [Negative] Moderate *ABN* (11/10/17 10:50 PM) UA Ketones [Negative] Trace *ABN* (11/10/17 10:50 PM) UA Protein [Negative mg/dL] 30 mg/dL *ABN* (11/10/17 10:50 PM) UA Urobilinogen [0.1-1.0 EU/dL] 0.2 EU/dL (11/10/17 10:50 PM) UA Bili [Negative] Negative *NA* (11/10/17 10:50 PM) UA Leuk Est [Negative] Moderate *ABN* (11/10/17 10:50 PM) UA Nitrite [Negative] Negative (11/10/17 10:50 PM) UA WBC [None Seen /HPF] 6-10 /HPF *ABN* (11/10/17 10:50 PM) UA RBC [0-2 /HPF] 0-2 /HPF (11/10/17 10:50 PM) UA Bacteria [None Seen /HPF] Moderate /HPF (11/10/17 10:50 PM) UA Sq Epi [Few /LPF] Moderate /LPF *ABN* (11/10/17 10:50 PM) UA Mucus [None Seen] None Seen (11/10/17 10:50 PM) HEMATOLOGY Most recent to oldest 1 2 3 [Reference Range]: WBC [3.7-10.4 K/CMM] 11.0 K/CMM 13.5 K/CMM 19.6 K/CMM *HI* *HI* *HI* (11/14/17 3:40 AM) (11/13/17 3:33 AM) (11/12/17 6:21 AM) RBC [4.20-5.40 M/CMM] 3.43 M/CMM 3.13 M/CMM 3.66 M/CMM *LOW* *LOW* *LOW* (11/14/17 3:40 AM) (11/13/17 3:33 AM) (11/12/17 6:21 AM) Hgb [12.0-16.0 g/dL] 8.9 g/dL 8.0 g/dL 9.4 g/dL *LOW* *LOW* *LOW* (11/14/17 3:40 AM) (11/13/17 3:33 AM) (11/12/17 6:21 AM) Hct [36.0-48.0 %] 27.6 % 25.4 % 30.0 % *LOW* *LOW* *LOW* (11/14/17 3:40 AM) (11/13/17 3:33 AM) (11/12/17 6:21 AM) MCV [80.0-98.0 fL] 80.6 fL 81.2 fL 82.0 fL (11/14/17 3:40 AM) (11/13/17 3:33 AM) (11/12/17 6:21 AM) MCH [27.0-31.0 pg] 25.8 pg 25.6 pg 25.5 pg *LOW* *LOW* *LOW* (11/14/17 3:40 AM) (11/13/17 3:33 AM) (11/12/17 6:21 AM) MCHC [32.0-36.0 g/dL] 32.1 g/dL 31.5 g/dL 31.2 g/dL (11/14/17 3:40 AM) *LOW* *LOW* (11/13/17 3:33 AM) (11/12/17 6:21 AM) RDW [11.5-14.5 %] 21.1 % 21.5 % 21.6 % *HI* *HI* *HI* (11/14/17 3:40 AM) (11/13/17 3:33 AM) (11/12/17 6:21 AM) MPV [7.4-10.4 fL] 9.0 fL 9.1 fL 9.7 fL (11/14/17 3:40 AM) (11/13/17 3:33 AM) (11/12/17 6:21 AM) Platelet [133-450 K/CMM] 300 K/CMM 308 K/CMM 311 K/CMM (11/14/17 3:40 AM) (11/13/17 3:33 AM) (11/12/17 6:21 AM) Segs [45.0-75.0 %] 68.4 % 75.0 % 92.7 % (11/14/17 3:40 AM) (11/13/17 3:33 AM) *HI* (11/12/17 6:21 AM) Lymphocytes [20.0-40.0 %] 22.4 % 15.6 % 6.1 % (11/14/17 3:40 AM) *LOW* *LOW* (11/13/17 3:33 AM) (11/12/17 6:21 AM) Monocytes [2.0-12.0 %] 8.4 % 9.3 % 1.1 % (11/14/17 3:40 AM) (11/13/17 3:33 AM) *LOW* (11/12/17 6:21 AM) Eosinophils [0.0-4.0 %] 0.6 % 0.1 % (11/14/17 3:40 AM) (11/10/17 10:31 PM) Basophils [0.0-1.0 %] 0.2 % 0.1 % 0.1 % (11/14/17 3:40 AM) (11/13/17 3:33 AM) (11/12/17 6:21 AM) Neutrophils # [1.5-8.1 K/CMM] 7.5 K/CMM 10.1 K/CMM 18.2 K/CMM (11/14/17 3:40 AM) *HI* *HI* (11/13/17 3:33 AM) (11/12/17 6:21 AM) Lymphocytes # [1.0-5.5 K/CMM] 2.5 K/CMM 2.1 K/CMM 1.2 K/CMM (11/14/17 3:40 AM) (11/13/17 3:33 AM) (11/12/17 6:21 AM) Monocytes # [0.0-0.8 K/CMM] 0.9 K/CMM 1.3 K/CMM 0.2 K/CMM *HI* *HI* (11/12/17 6:21 AM) (11/14/17 3:40 AM) (11/13/17 3:33 AM) Eosinophils # [0.0-0.5 K/CMM] 0.1 K/CMM (11/14/17 3:40 AM) Basophils # [0.0-0.2 K/CMM] 0.1 K/CMM (11/10/17 10:31 PM) Anisocyte [None Seen] 1+ 1+ 1+ *ABN* *ABN* *ABN* (11/14/17 3:40 AM) (11/13/17 3:33 AM) (11/12/17 6:21 AM) Plt Morph Normal (11/12/17 6:21 AM) PT [12.0-14.7 seconds] 15.2 seconds *HI* (11/10/17 10:31 PM) INR [0.85-1.17] 1.19 *HI* (11/10/17 10:31 PM) PTT [22.9-35.8 seconds] 28.5 seconds (11/10/17 10:31 PM) TUMOR MARKERS Most recent to oldest [Reference Range]: 1 2 3 CEA [0.0-3.0 ng/mL] 0.5 ng/mL (11/12/17 6:21 AM) CA 19-9 [0.0-35.0 unit/mL] 8.1 unit/mL (11/12/17 6:21 AM) AFP TM [0.0-11.0 ng/mL] 1.8 ng/mL (11/12/17 6:21 AM) Microbiology Reports TEST:Culture: Urine STATUS:Auth (Verified) BODY SITE: SOURCE:Urine, Clean Catch COLLECTED DATE/TIME:11/10/17 11:05 PMFINAL REPORTNo Growth Immunizations No data available for this section Procedures Procedure Date Related Diagnosis Body Site Status Procedure on hip 06/12/17 Completed Bypass 05/29/17 Completed AAA - Repair of abdominal aortic Completed aneurysm using bifurcation graft Abdominal hysterectomy Completed CABG - Coronary artery bypass graft Completed Social History Social History Type Response Substance Abuse Use: None. Employment/School 1 Alcohol Never Smoking Status Current every day smoker; Type: Cigarettes; Exposure to Tobacco Smoke Unable to obtain; Cigarette Smoking Last 365 Days Yes; Reg Smoking Cessation Counseling No entered on: 08/05/18 1not driving Assessment and Plan Extracted from: Title: Discharge Summary Author: Nadine Amin MD PHD Date: 11/14/17 Admission Date: 11/11/2017 Discharge Date: 11/11/2017 Admitting Physician/Service: Orville Rome MD/EGS Admission Diagnosis: 1. Perforated colon 2. Rectosigmoid diverticulosis 3. s/p AAA repair 4. s/p CABG Discharge Diagnosis: 1. Perforated colon 2. Rectosigmoid diverticulosis 3. s/p AAA repair 4. s/p CABG 5. Liver mass HPI/Hospital Course:The patient is a 77yo F with PMH of CAD (s/p CABG), s/p AAA repair who presented with suspected rectal perforation. The patient was treated for divericulosis in Jun 2017 at [facility] . She was pointed out that there was concern for cancer in the lesion and also there was a liver lesion concerning for metastases. Sigmoidscopy was performed on 10/29/[address] Whitney which the scope wa s unable to pass due to the edema and altered anatomy and no specimen was obtained. The liver lesion was not visualized by US and was unable to have biopsy at [facility]. The patient is also positive for 25-30lbs weight loss since this September. We consulted GI for another sigmoidoscopy for biopsy but due to the presence of perforation, it was thought to be unsafe. We also consulted IR for image guided biopsy and drainage but the mass lesion is unclear and also there is not much to drain, and she was not indicated for the procedure. There is a mass in S6 of the liver, concerining for tumor/ metastasis, which will be indicated for image guide d (CT) biopsy, however, as she was on ASA and plavix for CAD, procedure will not be performed any earlier than 11/18. Thus, the decision was made to send her home on abx as she was tolerating diet. CEA, AFP, CA 19-9 were all wnl. Most Recent Vitals: Vitals Tmp(F) Tmp(C) Ttype BP MAP Pulse RR SpO2 FIO2 ETCO2 11/14 07:57 98.4 36.89 oral 150/75 --- 58 18 94 --- --- 11/14 04:00 98.5 36.94 oral 127/70 --- 60 18 95 --- --- 11/13 23:27 98.5 36.94 oral 134/72 --- 59 18 95 --- --- 11/13 19:41 98.8 37.11 oral 113/69 --- 56 18 95 --- --- 11/13 16:32 98.1 36.72 oral 112/56 --- 54 18 95 --- --- 24 Hr Tmax: 98.8F (37.11c) at 11/13 19:41 24 Hr Tmin: 98.1F (36.72c) at 16:32 36 Hr Tmax: 98.8F (37.11c) at 11/13 19:41 36 Hr Tmin: 98.1F (36.72c) at 16:32 Most Recent Lab: 11/14 0340 Glucose Lvl 95 BUN 11 Creatinine Lvl 0.90 Sodium Lvl 146 H Potassium Lvl 3.2 L Chloride Lvl 107 CO2 30 AGAP 12.2 Calcium Lvl 8.2 L eGFR 62 WBC 11.0 H RBC 3.43 L Hgb 8.9 L Hct 27.6 L MCV 80.6 MCH 25.8 L MCHC 32.1 RDW 21.1 H Platelet 300 MPV 9.0 Segs 68.4 Monocytes 8.4 Lymphocytes 22.4 Eosinophils 0.6 Basophils 0.2 Segs-Bands # 7.5 Lymphocytes # 2.5 Monocytes # 0.9 H Eosinophils # 0.1 Anisocyte 1+ Discharge Plan: #rectosigmoid diverticulosis vs cancer -no pathology available at this moment -tumor markers are wnl -IR to biopsy the possible liver metastatic lesion Disposition: Home Follow-up: RTC with Dr. Rome in 3-4 weeks IR will call for the procedure date, if not called by Friday, call [phone] Advised to call/visit: call clinic or visit ED for worsening of pains, fever, vomiting or any concerns Activity: as tolerated Diet: adult heart healthy Medicine: See home medicine reconciliation sheet, she will be on Cipro and Flagyl for another 3 days ATTENDING ATTESTATION: I have seen and examined the patient with the above provider (resident/fellow) . Futhermore, I concur with their findings and plan as noted above. Extracted from: Title: Interventional Radiology Author: Pina Rosenthal NP Date: 11/13/17 Interventional Radiology Consultation Reason for consultation: targeted liver biopsy Referring Physician: Nadine Amin History of Present Illness: Gwendolyn Guerrero is a 77 year old female with a past medical history of hypothyroidism, diabetes, CAD status post CABG, aortic aneurysm status post repair, dementia, diverticuliti s, and history of a hepatic lesion. A biopsy of her hepatic lesion was attempted in 06/2017, but was unsuccessful. She was admitted on 11/11/17 for rectal bleeding after having a barium enema. Interven tional Radiology was initially consulted for biopsy of colonic mass, but procedure was declined as there was no safe window to access the lesion. Interventional Radiology is now consulted for liver lesion biopsy (targeted). Past Medical History: hypothyroidism diabetes CAD aortic aneurysm dementia diverticulitis hepatic lesion Past Surgical HIstory: CABG aortic aneurysm repair Social History: She lives with her son and daughter in law. 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 Tobacco Details: Use: Current every day smoker. Tobacco smoke exposure: None. Did the Patient Smoke Cigarettes Anytime During the Last 365 Days? Yes. Cessation Counseling Provided? No. Family History: mom with GI cancer father with colon cancer siblings with hypertension Allergies Reviewed: Allergies: azithromycin, iodine Current Medications: Medications (25) Active Scheduled Meds (14): 11/11/17 atorvastatin 40 mg PO Bedtime 11/11/17 ciprofloxacin 400 mg IVPB [id number] 200 ml/hr 11/11/17 donepezil 10 mg PO Daily 11/11/17 escitalopram (Lexapro) 10 mg PO Daily 11/11/17 furosemide (Lasix 20 mg oral tablet) 20 mg PO Daily 11/11/17 heparin 5,000 unit SUB-Q Q8H 11/11/17 levothyroxine 25 microgram PO Q630AM 11/11/17 lisinopril 2.5 mg PO Daily 11/11/17 melatonin 1 mg PO Bedtime 11/11/17 metoprolol (Toprol-XL 25 mg oral tablet, extended release) 25 mg PO Daily 11/11/17 metroNIDAZOLE (Flagyl) 500 mg IVPB Q8H 200 ml/hr 11/11/17 mirtazapine (Remeron) 30 mg PO Bedtime 11/11/17 nicotine 14 mg TOP Daily 11/12/17 remove patch 1 patch TOP Daily Unscheduled Meds (1): 11/12/17 iodixanol (Visipaque 320mg/ml) 100 mL IVP ONCALL PRN Meds (9): 11/11/17 Dextrose 50% in Water IV (Dextrose 50% Syringe) 12.5 gm IVP PRN 11/11/17 Dextrose 50% in Water IV (Dextrose 50% Syringe) 25 gm IVP PRN 11/11/17 docusate (docusate sodium 100 mg oral capsule) 100 mg PO BID 11/11/17 glucagon 1 mg IM PRN 11/11/17 insulin lispro 1 unit SUB-Q Sliding Scale 11/11/17 insulin lispro 2 unit SUB-Q Sliding Scale 11/11/17 insulin lispro 3 unit SUB-Q Sliding Scale 11/11/17 insulin lispro 4 unit SUB-Q Sliding Scale 11/11/17 insulin lispro 5 unit SUB-Q Sliding Scale One Time Meds: None Continuous Infusions (1): 11/11/17 Electrolyte Solution 1,000 mL (Isolyte S PH 7.4 1,000 mL) 1,000 mL 100 ml/hr Labs: 24hr Labs 11/13 1232 POC Performing Locatio See Note Glucose POC 84 11/13 0607 POC Performing Locatio See Note Glucose POC 105 H 11/13 0333 Glucose Lvl 111 H BUN 14 Creatinine Lvl 0.91 Sodium Lvl 145 Potassium Lvl 3.4 L Chloride Lvl 107 CO2 29 AGAP 12.4 Calcium Lvl 8.3 L eGFR 61 WBC 13.5 H RBC 3.13 L Hgb 8.0 L Hct 25.4 L MCV 81.2 MCH 25.6 L MCHC 31.5 L RDW 21.5 H Platelet 308 MPV 9.1 Segs 75.0 Monocytes 9.3 Lymphocytes 15.6 L Basophils 0.1 Segs-Bands # 10.1 H Lymphocytes # 2.1 Monocytes # 1.3 H Anisocyte 1+ 11/13 0012 POC Performing Locatio See Note Glucose POC 119 H 11/12 1737 POC Performing Locatio See Note Glucose POC 129 H INR: 1.19 High (11/10/17 22:50:17)No qualifying data available. Imaging Studies: 11/12/17 CT of the abdomen/pelvis - 1. Phlegmonous change with organizing fluid collection [...] right common iliac artery. 6. Extensive atherosclerosis. Review of Systems: Constitutional Symptoms: no fever, + weight loss Eyes: no visual changes Ears, Nose, Mouth, Throat: no dysphagia, no hearing deficit Cardiovascular: no chest pain, + CAD status post CABG Respiratory: no cough, no dyspnea Gastorintenstinal: no nausea, vomiting, + recent rectal bleeding, + diverticulitis, + hepatic lesion Genitourinary: no voiding difficulties Musculoskeletal: no arthralgia, no myalgia, no stiffness Integumentary: no rash, no hives Neurological: + weakness, no headache, no seizures, + dementia Psychiatry: no anxiety, no depression, no insomnia Endocrine: + diabetes, + hypothyroidism Physical Examination: Vitals Tmp(F) Tmp(C) Ttype BP MAP Pulse RR SpO2 FIO2 ETCO2 11/13 12:06 98.1 36.72 oral 132/76 --- 52 18 95 --- --- 11/13 08:16 98.2 36.78 oral 118/68 --- 52 18 95 --- --- 11/13 04:59 98.8 37.11 oral 121/68 --- 57 18 95 --- --- 11/12 23:28 98.2 36.78 oral 121/62 --- 51 18 94 --- --- 11/12 19:27 98.5 36.94 oral 122/67 --- 53 18 95 --- --- 24 Hr Tmax: 98.9F (37.17c) at 11/12 16:34 Vital Signs are the last 5 in the past 48 hours. 24 Hr Tmin: 98.1F (36.72c) at 11/13 12:06 Weights are the last 5 in 60 days, plus initial. Date Wt(kg) Wt(lb) Ht(cm) Ht(in) Method BMI BSA 11/11 57.82 127.20 162.56 64.00 Measured 21.9 1.62 11/10 (initial) 58.64 129.00 Estimated 11/11 162.56 64.00 Stated 24 Hr Point of Care Glucoses 11/13 1232 Glucose POC 84 11/13 0607 Glucose POC 105 H 11/13 0012 Glucose POC 119 H 11/12 1737 Glucose POC 129 H Most Recent Scores: 11/13/17 Velez Harding Fall Score 5 11/13/17 Pain Intensity NRS (0-10) 0 11/13/17 Nathalia Coma Score 15 11/13/17 Garrison Score 20 Lines, Tubes, and Drains: 11/12/2017 12:50 Peripheral Lines: Forearm Left 22 gauge Over the needle catheter General: Active, alert, well developed, well nourished, in no acute distress Head: Normocephalic, atraumatic Eyes: sclera is clear Hearing: normal to spoken voice Speech: Adequate vocabulary, no impediments Nose: [place] nasal turbinates, septum midline, no drainage or deformities Mouth: moist mucous membranes, dentition is poor Neck: Supple, without JVD Resp: even and non labored. Breath sounds reveal few scattered rhonchi that clear with cough CV: RRR, without murmurs, rubs or gallops ABD: soft, non tender with positive bowel sounds x 4 quads. Back/Extremities: extremities are without edema Neuro: She is alert and oriented to all spheres and follows commands. Skin: Clear, no rashes or jaundice. Pallor is noted. Impression: 1. liver lesion 2. diabetes 3. CAD status post CABG 4. aortic aneurysm status post repair 5. anemia 6. leukocytosis 7. dementia Plan: Plan is for image guided liver biopsy (targeted) of liver lesion. However, patient has been on daily Aspirin (last dose 11/13/17). Per Dr. Sanchez, she will need to be off of Aspirin for 5 days before biopsy can be done (on or after 11/18/17). Benefits, risks, and alternatives for the procedure were discussed with patient. She verbalizes understanding, but declines to proceed as she relates she does not wish to remain hospitalized until 11/13/17 and prefers to return as an outpatient for ths procedure. The primary team, Dr. Mejia, was notified via phone that patient declines the procedure. THANK YOU FOR CONSULTING INTERVENTIONAL RADIOLOGY. IF YOU HAVE ANY QUESTIONS, PLEASE CONTACT [phone]. Extracted from: Title: EGS Progress Note Author: Nadine Amin MD PHD Date: 11/12/17 Progress Note - Daily [facility] Completed: Nov, 15: 52 by Nadine Amin MD PHD RM: [id number], 3JP GWENDOLYN GUERRERO 77y (: 1940) F Attending: Orville Rome MD Service: Trauma Service Reason for Admission: DIVERTICULITIS Working DRG: Esophagitis, gastroent & misc digest disorders w/o [facility] Code status: None Specified=FULL CODE Current diet: Isolation: No Isolation/Standard Precautions Allergies: azithromycin, iodine SUBJECTIVE I am hungry OBJECTIVE CT with IV, PO, NV contrast obtained this AM + one small bowel movement last night bot not this morning 24hr Labs 11/12 1146 POC Performing Locatio See Note Glucose POC 153 H 11/12 0621 Glucose Lvl 175 H BUN 14 Creatinine Lvl 1.09 Sodium Lvl 140 Potassium Lvl 4.3 Chloride Lvl 105 CO2 25 AGAP 14.3 Calcium Lvl 9.0 eGFR 49 WBC 19.6 H RBC 3.66 L Hgb 9.4 L Hct 30.0 L MCV 82.0 MCH 25.5 L MCHC 31.2 L RDW 21.6 H Platelet 311 MPV 9.7 Segs 92.7 H Monocytes 1.1 L Lymphocytes 6.1 L Basophils 0.1 Segs-Bands # 18.2 H Lymphocytes # 1.2 Monocytes # 0.2 Plt Morph Normal Anisocyte 1+ CEA 0.5 AFP TM 1.8 CA 19-9 8.1 11/11 2359 POC Performing Locatio See Note Glucose POC 131 H Pena still necessary (Yes/No): Line still necessary (Yes/No): Vitals Tmp(F) Pulse BP RR SpO2 FIO2 11/12 13:34 98.3 53 117/69 20 92 --- 11/12 11:50 97.6 55 126/69 18 93 --- 11/12 08:37 98.2 59 126/74 18 92 --- 11/12 04:24 98.1 57 115/71 18 95 --- 11/11 23:52 98.1 59 102/64 18 95 --- 24 Hr Tmax: 98.4F (36.89c) at 11/11 20:10 Vital Signs are the last 5 in the past 48 hours. Date Wt(kg) Wt(lb) Ht(cm) Ht(in) Method 11/11 57.82 127.20 162.56 64.00 Measured 11/10 (initial) 58.64 129.00 Estimated 11/11 162.56 64.00 Stated I&O Record In Out Bal 11/12 24hr Tot 900 0 900 11/11 24hr Tot 2751 0 2751 Medications (30) Active Scheduled Meds (15): 11/12/17 aspirin (aspirin 81 mg tablet, chewable) 81 mg PO Daily 11/11/17 atorvastatin 40 mg PO Bedtime 11/11/17 ciprofloxacin 400 mg IVPB [id number] 200 ml/hr 11/11/17 donepezil 10 mg PO Daily 11/11/17 escitalopram (Lexapro) 10 mg PO Daily 11/11/17 furosemide (Lasix 20 mg oral tablet) 20 mg PO Daily 11/11/17 heparin 5,000 unit SUB-Q Q8H 11/11/17 levothyroxine 25 microgram PO Q630AM 11/11/17 lisinopril 2.5 mg PO Daily 11/11/17 melatonin 1 mg PO Bedtime 11/11/17 metoprolol (Toprol-XL 25 mg oral tablet, extended release) 25 mg PO Daily 11/11/17 metroNIDAZOLE (Flagyl) 500 mg IVPB Q8H 200 ml/hr 11/11/17 mirtazapine (Remeron) 30 mg PO Bedtime 11/11/17 nicotine 14 mg TOP Daily 11/12/17 remove patch 1 patch TOP Daily Review of Systems: General: negative for fever and chills HEENT: negative for recent visual and hearing changes Respiratory: negative for SOB, cough, and sputum production Cardiovascular: negative for chest pain and palpitation Gastrointestinal: negative for nausea and vomiting, a small bowel movement last night but not today, gas+ but not very often Genitourinary: negative for dysuria Integumentary: negative for rashes Extremities:negative for swelling or coldness Neurologic: negative for dizziness and headache Louis/Lymph: negative for brusing Endocrine: negative for thirstiness Psychiatric: negative for anxiety and depression Physical Exam: General appearance:NAD, Alert and orientedx3 HEENT: AT/NC, no discharges from nares/ears Cardiovascular: no mrg, pulses palpable 2+ in all 4 extremities Respiratory: CTAB, non-labored breathing Gastrointestinal: NT/ND Extremities: warm, well perfused Skin: no rashes Neurological: no focal deficits Psychiatric: appropriate mood , alert and oriented CT abd/pelvis 11/12/2017 IMPRESSION: 1. Phlegmonous change with organizing fluid [...] right common iliac artery. 6. Extensive atherosclerosis. ASSESSMENT & PLAN The patient is a 77yo F with PMH of CAD (s/p CABG), s/p AAA repair who presented with suspected rectal perforation. The patient was treated for divericulosis in Jun 2017 at [facility]. She was pointed ou t that there was concern for cancer in the lesion and also there was a liver lesion concerning for metastases. Sigmoidscopy was performed on 10/29/[address] Whitney which the scope was unable to pass due to the edema and altered anatomy and no specimen was obtained. The liver lesion was not visualized by US and was unable to have biopsy at [facility]. The patient is also positive for 25-30lbs weight loss since this September. #rectosigmoid diverticulosis vs cancer -no pathology available at this moment -tumor markers are wnl -GI consulted but due to the presence of perforation, sigmoidoscopy was not recommended--->IR consult for image guided biopsy Addendum by Aly Ji MD on I have seen and examined the patient. I 11/12/2017 17:18 have reviewed the resident's note and agree with assessment and plan. Extracted from: Title: EGS History and Physical Author: Breanne Mcgovern MD Date: 11/11 Attending Surgeon: Dr. Rome Referring Physician: Ang Piedra MD Date of Admission: 11/11/2017 00:27 Admission diagnosis: Concern for perforated rectosigmoid colon Chief Complaint: "They told me to come in" History of Present Illness: 77 yo F with PMH of CAD s/p CABG x 2, DM, history of aortic aneurysm s/p repair and dementia presents after her GI doctor performed a barium enema yesterday (11/10) and was told her to go to the emergency department. She had previously undergone a colonoscopy at the end of October and the scope was unable to be passed beyond the sigmoid colon. She had BRBPR the morning of 11/10 and then underwent a bariu m enema in an attempt to visualize more of the colon. She states that her GI doctor told her to go to the ED after her imaging and she ended up going to a hospital in [place] due to wait times. The re, a CT abdomen/pelvis (no IV contrast) was performed which was concerning for possible perforation with area of contained air outside of the colon. She was sent to [facility] for continued care. Upon initial interview she reports that she is feeling fine. She has had multiple bowel movements since this morning due to the PO contrast for the CT scan. She states that her weight typically increase s and decreases however she has had weight loss of 30 pounds this past year. She denies fevers, chills, abdominal pain, nausea, vomiting. Of note, she was seen at [facility] in 06/2017 for sigmoid diverticulitis. At that time CT was concerning for possible cancer. She was also noted to have liver lesions concerning for metastases. At that time it was recommended that she get an outpatient colonoscopy 6 weeks after resolution of infection to evaluate for malignancy. She was also planned to have an IR guided biopsy of the liver lesions. Pe r the patient she he did not have a colonoscopy until this October and they attempted but were unable to biopsy the liver lesions at [facility]. Past Medical History: DM Chronic kidney disease 2/2 DM CAD s/p CABG x 2 Dementia Hypothyroidism Past Surgical History: CABG x 2 - 05/2017 Abdominal aortic aneurysm repair- 2007 Allergies: Iodine- hives Azithromycin Medications: ASA 81 mg daily Plavix 75 mg daily Donepezil 10 mg nightly Lasix 20 mg daily Levothyroxine 25 mcg daily Lexapro 10 mg daily Atorvastatin 40 mg nightly Lisinopril 2.5 mg daily Metoprolol 25 mg daily Remeron 30 mg daily Family History: Mother-stomach cancer Maternal/paternal aunts- breast cancer Father- colon cancer, diagnosed at 60 Social History: Review of Systems Constitutional symptoms: Denies fever, weight loss, night sweats, fatigue HEENT: Denies ear pain, hearing loss, nasal drainage, sore throat, tooth pain, hoarseness, eye redness, visual changes Cardiovascular: Denies murmurs, chest pain Respiratory: Reports cough. Denies wheezing, apnea, cyanosis, difficulty breathing Gastrointestinal: See HPI Genitourinary: Denies dysuria, hematuria, decreased or absent urine output Musculoskeletal: Denies joint swelling, tenderness, weakness Skin: Denies rashes, dryness, itching Neurological: Denies seizures, loss of consciousness, numbness, tingling, weakness Psychiatric: Denies mood changes, sleep problems Endocrine: 23 pound weight loss (reports weight typically increases and decreases). Hematologic / lymphatic: Denies bleeding, jaundice, swollen glands Physical Exam Vitals Tmp(F) Pulse BP RR SpO2 FIO2 11/10 21:02 98.1 62 100/64 21 95 --- 24 Hr Tmax: 98.1F (36.72c) at 11/10 21:02 Vital Signs are the last 5 in the past 48 hours. General appearance: Laying in bed in no acute distress Skin: Integument intact without rashes or erythema HEENT: normocephalic, Pupils equal and reactive to light, neck without masses or lymphadenopathy Heart: regular rate and rhythm Vascular exam: well perfused. 2+ bilateral DP Lungs: no increased WOB on room air Abdomen: soft, non-tender to palpation, non-distended. Midline exploratory laparotomy scar, no evidence of hernia Genitourinary: deferred Musculoskeletal: no limitation of passive/active motion Neurological: appropriately interactive; CN II-XII intact Rectal: Anus without stricture. No abnormalities to palpation. Stool in vault. No evidence of blood. Pertinent Laboratory Evaluation Labs (Last four charted values) WBC H 14.0 (NOV 10) Hgb L 7.6 (NOV 10) Hct L 24.4 (NOV 10) Plt 317 (NOV 10) Na 144 (NOV 10) K 4.2 (NOV 10) CO2 28 (NOV 10) Cl 108 (NOV 10) Cr 1.22 (NOV 10) BUN 21 (NOV 10) Glucose Random 95 (NOV 10) Ca 8.8 (NOV 10) PT H 15.2 (NOV 10) INR H 1.19 (NOV 10) PTT 28.5 (NOV 10) Diagnostic Imaging Over-read CT abd/pelvis 11/10 IMPRESSION: 1. Extensive intrapelvic extraluminal air and fluid adjacent to the rectosigmoid junction highly concerning for focal perforation of the rectosigmoid colon. Evaluation for an organized abscess is limit ed due to absence of IV contrast and significant beam hardening artifact from patient's right hip prosthesis. These findings were described on the outside report. 2. Colonic diverticulosis of the descending colon and rectosigmoid colon. 3. Aneurysmal dilatation of the infrarenal abdominal aorta measuring up to 3.4 cm. Extensive vascular atherosclerosis is also noted. 4. Granulomatous disease of the spleen. Diagnosis: Possible rectosigmoid perforation Assessment: 77 yo F with PMH of CAD s/p CABG x 2, DM, history of aortic aneurysm s/p repair and dementia presents with possible rectosigmoid perforation. Plan: Concern for perforation of rectosigmoid colon -Admit to EGS -NPO, IVF -Cipro/Flagyl -Find barium enema study (patient reports it was done here) UTI-present on admission Continue cipro/flagyl, f/u cultures History of CAD s/p CABG x 2 Hold ASA/Plavix for now Continue metoprolol 25 mg daily Continue atorvastatin 40 mg nightly Hypothyroidism Continue levothyroixine 25 mcg daily Type II DM Hold home metformin ISS POC glucose q6h while NPO Breanne Mcgovern MSO: [id number] Addendum #Malnutrition - Will add boost #COPD- emphysema, Chronic bronchitis - CXR # Concern for rectal perforation - gastrograffin enema # CAD - EKG, ECHO Suleman Mejia MD E ATTENDING ATTESTATION: I have seen and examined the patient with the above provider (resident/fellow) . Futhermore, I concur with their findings and plan as noted above. Addendum by Orville Rome MD on ATTENDING ATTESTATION: 11/11/2017 16:43 I have seen and examined the patient with the above provider (resident/fellow). Futhermore, I concur with their findings and plan as noted above.
--- OUTSIDE RECORDS SUMMARY | 2018-11-09 09:57 | XMS REPORT ---
:1940 Author Organization [facility] Address [address] [place] [address] Care Team Providers Name Role Phone DELON RANGEL Unavailable Unavailable Problems This patient has no known problems. Allergies, Adverse Reactions, Alerts This patient has no known allergies or adverse reactions. Medications This patient has no known medications. Results Test Description Test Time Test Comments Text Results Atomic Results Result Comments CALCIUM, IONIZED 2017-05-28 06:28:00 Test Item Value Reference Range Comments CALCIUM IONIZED (BEAKER) (test yhlq=497) 1.10 mmol/L 1.12-1.27 PH, BLOOD (BEAKER) (test ikxf=7713) 7.34 [id number] 05:52:00 Test Item Value Reference Range Comments PHOSPHORUS (BEAKER) (test szrm=352) 3.5 mg/dL 2.3-4.7 [id number] 05:52:00 Test Item Value Reference Range Comments MAGNESIUM (BEAKER) (test btke=488) 2.0 mg/dL 1.6-2.6 BASIC METABOLIC [id number] 05:52:00 Test Item Value Reference Range Comments SODIUM (BEAKER) (test 143 meq/L 136-145 sfmr=984) POTASSIUM (BEAKER) (test 3.8 meq/L 3.5-5.1 vtch=034) CHLORIDE (BEAKER) (test 109 meq/L 98-107 gfoy=662) CO2 (BEAKER) (test 29 meq/L 22-29 mlae=997) BLOOD UREA NITROGEN 22 mg/dL 7-21 (BEAKER) (test vlkj=745) CREATININE (BEAKER) (test 0.96 mg/dL 0.57-1.25 zhyv=597) GLUCOSE RANDOM (BEAKER) 104 mg/dL 70-105 (test sipz=435) CALCIUM (BEAKER) (test 8.5 mg/dL 8.4-10.2 gfeu=584) EGFR (BEAKER) (test 56 mL/min/1.73 sq m ESTIMATED GFR IS NOT vgar=2168) ACCURATE CREATININE CLEARANCE IN PREDICTING GLOMERULAR FILTRATION RATE. ESTIMATED GFR IS NOT APPLICABLE FOR DIALYSIS PATIENTS. CBC W/PLT COUNT & AUTO [id number] 05:28:00 Test Item Value Reference Range Comments WHITE BLOOD CELL COUNT (BEAKER) (test kbjc=998) 10.4 K/ L 3.5-10.5 RED BLOOD CELL COUNT (BEAKER) (test ayfm=160) 2.75 M/ L 3.93-5.22 HEMOGLOBIN (BEAKER) (test dukv=207) 8.3 GM/DL 11.2-15.7 HEMATOCRIT (BEAKER) (test hcib=856) 26.2 % 34.1-44.9 MEAN CORPUSCULAR VOLUME (BEAKER) (test kiis=658) 95.3 fL 79.4-94.8 MEAN CORPUSCULAR HEMOGLOBIN (BEAKER) (test 30.2 pg 25.6-32.2 vzmb=952) MEAN CORPUSCULAR HEMOGLOBIN CONC (BEAKER) (test 31.7 GM/DL 32.2-35.5 ipcf=229) RED CELL DISTRIBUTION WIDTH (BEAKER) (test 15.6 % 11.7-14.4 unyt=173) PLATELET COUNT (BEAKER) (test gxxy=581) 213 K/CU MM 150-450 MEAN PLATELET VOLUME (BEAKER) (test paxr=964) 11.4 fL 9.4-12.3 NUCLEATED RED BLOOD CELLS (BEAKER) (test 0 /100 WBC 0-0 scdm=847) NEUTROPHILS RELATIVE PERCENT (BEAKER) (test 59 % ijrk=744) LYMPHOCYTES RELATIVE PERCENT (BEAKER) (test 22 % dxit=994) MONOCYTES RELATIVE PERCENT (BEAKER) (test 12 % uxel=912) EOSINOPHILS RELATIVE PERCENT (BEAKER) (test 5 % jnit=448) BASOPHILS RELATIVE PERCENT (BEAKER) (test 1 % ukpv=991) NEUTROPHILS ABSOLUTE COUNT (BEAKER) (test 6.17 K/ L 1.56-6.13 gqxs=835) LYMPHOCYTES ABSOLUTE COUNT (BEAKER) (test 2.26 K/ L 1.18-3.74 gxdy=915) MONOCYTES ABSOLUTE COUNT (BEAKER) (test 1.26 K/ L 0.24-0.36 znxo=339) EOSINOPHILS ABSOLUTE COUNT (BEAKER) (test 0.52 K/ L 0.04-0.36 cszk=414) BASOPHILS ABSOLUTE COUNT (BEAKER) (test 0.05 K/ L 0.01-0.08 gkxr=011) IMMATURE GRANULOCYTES-RELATIVE PERCENT (BEAKER) 1 % 0-1 (test wxrp=5268) CALCIUM, [id number] 06:34:00 Test Item Value Reference Range Comments CALCIUM IONIZED (BEAKER) (test ccua=059) 1.11 mmol/L 1.12-1.27 PH, BLOOD (BEAKER) (test crkf=2659) 7.41 [id number] 05:05:00 Test Item Value Reference Range Comments PHOSPHORUS (BEAKER) (test xqtm=434) 2.9 mg/dL 2.3-4.7 [id number] 05:05:00 Test Item Value Reference Range Comments MAGNESIUM (BEAKER) (test eqga=415) 1.9 mg/dL 1.6-2.6 BASIC METABOLIC [id number] 05:05:00 Test Item Value Reference Range Comments SODIUM (BEAKER) (test 142 meq/L 136-145 rdbw=326) POTASSIUM (BEAKER) (test 4.0 meq/L 3.5-5.1 mlzx=812) CHLORIDE (BEAKER) (test 107 meq/L 98-107 ixhs=077) CO2 (BEAKER) (test 30 meq/L 22-29 vhqy=710) BLOOD UREA NITROGEN 19 mg/dL 7-21 (BEAKER) (test zacp=452) CREATININE (BEAKER) (test 0.83 mg/dL 0.57-1.25 rydl=721) GLUCOSE RANDOM (BEAKER) 110 mg/dL 70-105 (test lwtw=510) CALCIUM (BEAKER) (test 8.5 mg/dL 8.4-10.2 awyk=127) EGFR (BEAKER) (test 67 mL/min/1.73 sq m ESTIMATED GFR IS NOT oqtg=9151) ACCURATE CREATININE CLEARANCE IN PREDICTING GLOMERULAR FILTRATION RATE. ESTIMATED GFR IS NOT APPLICABLE FOR DIALYSIS PATIENTS. CBC W/PLT COUNT & AUTO [id number] 04:46:00 Test Item Value Reference Range Comments WHITE BLOOD CELL COUNT (BEAKER) (test twfm=055) 9.6 K/ L 3.5-10.5 RED BLOOD CELL COUNT (BEAKER) (test duvz=195) 2.90 M/ L 3.93-5.22 HEMOGLOBIN (BEAKER) (test qmlr=434) 8.6 GM/DL 11.2-15.7 HEMATOCRIT (BEAKER) (test ulec=101) 26.9 % 34.1-44.9 MEAN CORPUSCULAR VOLUME (BEAKER) (test qdrr=801) 92.8 fL 79.4-94.8 MEAN CORPUSCULAR HEMOGLOBIN (BEAKER) (test 29.7 pg 25.6-32.2 mjua=854) MEAN CORPUSCULAR HEMOGLOBIN CONC (BEAKER) (test 32.0 GM/DL 32.2-35.5 hxul=841) RED CELL DISTRIBUTION WIDTH (BEAKER) (test 16.0 % 11.7-14.4 ipjy=852) PLATELET COUNT (BEAKER) (test eeop=678) 181 K/CU MM 150-450 MEAN PLATELET VOLUME (BEAKER) (test ykze=318) 11.4 fL 9.4-12.3 NUCLEATED RED BLOOD CELLS (BEAKER) (test 0 /100 WBC 0-0 qjfl=788) NEUTROPHILS RELATIVE PERCENT (BEAKER) (test 69 % sqtf=632) LYMPHOCYTES RELATIVE PERCENT (BEAKER) (test 14 % mcvr=547) MONOCYTES RELATIVE PERCENT (BEAKER) (test 12 % ynmn=973) EOSINOPHILS RELATIVE PERCENT (BEAKER) (test 5 % fioe=779) BASOPHILS RELATIVE PERCENT (BEAKER) (test 0 % qdzm=329) NEUTROPHILS ABSOLUTE COUNT (BEAKER) (test 6.59 K/ L 1.56-6.13 pthf=936) LYMPHOCYTES ABSOLUTE COUNT (BEAKER) (test 1.34 K/ L 1.18-3.74 wzgu=278) MONOCYTES ABSOLUTE COUNT (BEAKER) (test 1.11 K/ L 0.24-0.36 aayy=651) EOSINOPHILS ABSOLUTE COUNT (BEAKER) (test 0.46 K/ L 0.04-0.36 nkqm=844) BASOPHILS ABSOLUTE COUNT (BEAKER) (test 0.03 K/ L 0.01-0.08 xsxa=695) IMMATURE GRANULOCYTES-RELATIVE PERCENT (BEAKER) 1 % 0-1 (test xqab=5934) RAD, CHEST, 1 VIEW, NON [id number] 09:05:00Reason for exam:->s/p surgery/ intubation/CTShould this be performed at the bedside?->YesFINAL REPORT Chest one view compared to May 25, 2017 Discussion : Right chest tube is removed. Left-sided drainage tubes remain. Ill-defined opacities both lung bases are similar. There may be a small right effusion. No pneumothorax. Signed: Franco Wilkinson Verified Date/Time: 05/26/2017 09: 05:29 Reading Location: [facility] Radiology Reading Room POCT- GLUCOSE [id number] 07:34:00 Test Item Value Reference Range Comments POC-GLUCOSE METER (BEAKER) 146 mg/dL 70-110 TESTED AT [place] [id number] [facility] (test zswj=1128) [facility] [address] POCT-GLUCOSE [id number] 07:34:00 Test Item Value Reference Range Comments POC-GLUCOSE METER (BEAKER) 130 mg/dL 70-110 TESTED AT [address] (test qchu=3608) [facility] [address] VITAMIN B12 AND [id number] 07:15:00 Test Item Value Reference Range Comments VITAMIN B12 (BEAKER) (test kzzy=508) 1074 pg/mL 213-816 FOLATE (BEAKER) (test jjxz=965) 10.9 ng/mL >=7.0 [id number] 06:44:00 Test Item Value Reference Range Comments MAGNESIUM (BEAKER) (test kjio=845) 2.4 mg/dL 1.6-2.6 BASIC METABOLIC [id number] 06:44:00 Test Item Value Reference Range Comments SODIUM (BEAKER) (test 139 meq/L 136-145 wtvk=332) POTASSIUM (BEAKER) (test 3.8 meq/L 3.5-5.1 btlf=118) CHLORIDE (BEAKER) (test 106 meq/L 98-107 grye=368) CO2 (BEAKER) (test 27 meq/L 22-29 jtww=112) BLOOD UREA NITROGEN 14 mg/dL 7-21 (BEAKER) (test bavs=728) CREATININE (BEAKER) (test 0.85 mg/dL 0.57-1.25 kgda=063) GLUCOSE RANDOM (BEAKER) 115 mg/dL 70-105 (test msmg=767) CALCIUM (BEAKER) (test 8.1 mg/dL 8.4-10.2 bnnd=687) EGFR (BEAKER) (test 65 mL/min/1.73 sq m ESTIMATED GFR IS NOT jxxb=7715) ACCURATE CREATININE CLEARANCE IN PREDICTING GLOMERULAR FILTRATION RATE. ESTIMATED GFR IS NOT APPLICABLE FOR DIALYSIS PATIENTS. CBC W/PLT COUNT & AUTO [id number] 06:15:00 Test Item Value Reference Range Comments WHITE BLOOD CELL COUNT (BEAKER) (test dqir=854) 12.5 K/ L 3.5-10.5 RED BLOOD CELL COUNT (BEAKER) (test ggvk=314) 3.12 M/ L 3.93-5.22 HEMOGLOBIN (BEAKER) (test incb=820) 9.2 GM/DL 11.2-15.7 HEMATOCRIT (BEAKER) (test maat=737) 29.0 % 34.1-44.9 MEAN CORPUSCULAR VOLUME (BEAKER) (test qxrt=062) 92.9 fL 79.4-94.8 MEAN CORPUSCULAR HEMOGLOBIN (BEAKER) (test 29.5 pg 25.6-32.2 apeg=893) MEAN CORPUSCULAR HEMOGLOBIN CONC (BEAKER) (test 31.7 GM/DL 32.2-35.5 uzxt=988) RED CELL DISTRIBUTION WIDTH (BEAKER) (test 16.5 % 11.7-14.4 mhjz=003) PLATELET COUNT (BEAKER) (test wjum=820) 143 K/CU MM 150-450 MEAN PLATELET VOLUME (BEAKER) (test broy=084) 11.5 fL 9.4-12.3 NUCLEATED RED BLOOD CELLS (BEAKER) (test 0 /100 WBC 0-0 vfbu=257) NEUTROPHILS RELATIVE PERCENT (BEAKER) (test 81 % frck=539) LYMPHOCYTES RELATIVE PERCENT (BEAKER) (test 7 % qxxu=342) MONOCYTES RELATIVE PERCENT (BEAKER) (test 9 % tpyi=375) EOSINOPHILS RELATIVE PERCENT (BEAKER) (test 2 % hmvm=158) BASOPHILS RELATIVE PERCENT (BEAKER) (test 0 % vgsd=879) NEUTROPHILS ABSOLUTE COUNT (BEAKER) (test 10.13 K/ L 1.56-6.13 kaoe=693) LYMPHOCYTES ABSOLUTE COUNT (BEAKER) (test 0.87 K/ L 1.18-3.74 wnek=898) MONOCYTES ABSOLUTE COUNT (BEAKER) (test 1.15 K/ L 0.24-0.36 flgm=017) EOSINOPHILS ABSOLUTE COUNT (BEAKER) (test 0.25 K/ L 0.04-0.36 xnjv=355) BASOPHILS ABSOLUTE COUNT (BEAKER) (test 0.04 K/ L 0.01-0.08 hbdy=566) IMMATURE GRANULOCYTES-RELATIVE PERCENT (BEAKER) 1 % 0-1 (test vqhf=6806) CALCIUM, [id number] 06:10:00 Test Item Value Reference Range Comments CALCIUM IONIZED (BEAKER) (test noaa=260) 1.07 mmol/L 1.12-1.27 PH, BLOOD (BEAKER) (test vcas=8972) 7.34 [id number] 17:12:00 Test Item Value Reference Range Comments POTASSIUM (BEAKER) (test cfpx=882) 3.7 meq/L 3.5-5.1 [id number] 17:12:00 Test Item Value Reference Range Comments MAGNESIUM (BEAKER) (test snqa=472) 1.9 mg/dL 1.6-2.6 RAD, CHEST, 1 VIEW, NON [id number] 09:40:00Reason for exam:->s/p surgery/ intubation/CTShould this be [...] present. No pneumothorax is seen. Signed: Cristopher Dawkinseport Verified Date/Time: 05/25/2017 09:40:39 Reading Location: [facility] B1 C013V Neuro ReadingRoom BRONCHIAL CULTURE + GRAM [id number] 09:36:00 Test Item Value Reference Range Comments CULTURE (BEAKER) (test <1+ Normal respiratory eugenio visa=6884) present GRAM STAIN RESULT (BEAKER) 1+ WBCs (test ctol=9650) GRAM STAIN RESULT (BEAKER) No organisms seen (test rimm=11886) SPUTUM CULTURE + GRAM [id number] 09:18:00 Test Item Value Reference Range Comments CULTURE (BEAKER) (test 2+ Normal respiratory eugenio ykul=0325) present GRAM STAIN RESULT (BEAKER) 3+ WBCs (test dfev=2555) GRAM STAIN RESULT (BEAKER) 0-5 epithelial cells (test zlss=15606) GRAM STAIN RESULT (BEAKER) <1+ gram positive cocci in pairs (test ocnh=53851) CALCIUM, [id number] 04:00:00 Test Item Value Reference Range Comments CALCIUM IONIZED (BEAKER) (test dwen=812) 1.10 mmol/L 1.12-1.27 PH, BLOOD (BEAKER) (test onkm=6075) 7.36 OXYGEN SATURATION, [id number] 03:59:00 Test Item Value Reference Range Comments O2 SATURATION (MEASURED) (BEAKER) (test yvhj=7743) 67.2 % BASIC METABOLIC [id number] 03:53:00 Test Item Value Reference Range Comments SODIUM (BEAKER) (test 139 meq/L 136-145 oeiz=270) POTASSIUM (BEAKER) (test 4.0 meq/L 3.5-5.1 crzd=528) CHLORIDE (BEAKER) (test 111 meq/L 98-107 etkb=238) CO2 (BEAKER) (test 23 meq/L 22-29 sprw=857) BLOOD UREA NITROGEN 15 mg/dL 7-21 (BEAKER) (test ldsh=210) CREATININE (BEAKER) (test 0.81 mg/dL 0.57-1.25 hgef=979) GLUCOSE RANDOM (BEAKER) 114 mg/dL 70-105 (test vjrx=961) CALCIUM (BEAKER) (test 7.7 mg/dL 8.4-10.2 ivmq=774) EGFR (BEAKER) (test 69 mL/min/1.73 sq m ESTIMATED GFR IS NOT itqc=6015) ACCURATE CREATININE CLEARANCE IN PREDICTING GLOMERULAR FILTRATION RATE. ESTIMATED GFR IS NOT APPLICABLE FOR DIALYSIS PATIENTS. [id number] 03:51:00 Test Item Value Reference Range Comments PHOSPHORUS (BEAKER) (test juhn=439) 2.7 mg/dL 2.3-4.7 [id number] 03:51:00 Test Item Value Reference Range Comments MAGNESIUM (BEAKER) (test zcsw=680) 2.1 mg/dL 1.6-2.6 CBC W/PLT COUNT & AUTO [id number] 03:33:00 Test Item Value Reference Range Comments WHITE BLOOD CELL COUNT (BEAKER) (test kkgb=679) 10.3 K/ L 3.5-10.5 RED BLOOD CELL COUNT (BEAKER) (test ojhm=850) 2.67 M/ L 3.93-5.22 HEMOGLOBIN (BEAKER) (test kbtc=658) 8.0 GM/DL 11.2-15.7 HEMATOCRIT (BEAKER) (test ydqz=494) 24.2 % 34.1-44.9 MEAN CORPUSCULAR VOLUME (BEAKER) (test xpnt=291) 90.6 fL 79.4-94.8 MEAN CORPUSCULAR HEMOGLOBIN (BEAKER) (test 30.0 pg 25.6-32.2 biuv=764) MEAN CORPUSCULAR HEMOGLOBIN CONC (BEAKER) (test 33.1 GM/DL 32.2-35.5 vrxi=879) RED CELL DISTRIBUTION WIDTH (BEAKER) (test 17.1 % 11.7-14.4 pzht=116) PLATELET COUNT (BEAKER) (test nrcj=792) 112 K/CU MM 150-450 MEAN PLATELET VOLUME (BEAKER) (test lvyt=624) 11.0 fL 9.4-12.3 NUCLEATED RED BLOOD CELLS (BEAKER) (test 0 /100 WBC 0-0 mybx=383) NEUTROPHILS RELATIVE PERCENT (BEAKER) (test 76 % gpyt=245) LYMPHOCYTES RELATIVE PERCENT (BEAKER) (test 12 % dkom=460) MONOCYTES RELATIVE PERCENT (BEAKER) (test 10 % qszw=545) EOSINOPHILS RELATIVE PERCENT (BEAKER) (test 2 % eaww=661) BASOPHILS RELATIVE PERCENT (BEAKER) (test 0 % eemh=983) NEUTROPHILS ABSOLUTE COUNT (BEAKER) (test 7.84 K/ L 1.56-6.13 xxur=857) LYMPHOCYTES ABSOLUTE COUNT (BEAKER) (test 1.25 K/ L 1.18-3.74 pcrl=855) MONOCYTES ABSOLUTE COUNT (BEAKER) (test 1.03 K/ L 0.24-0.36 iyvg=840) EOSINOPHILS ABSOLUTE COUNT (BEAKER) (test 0.16 K/ L 0.04-0.36 wcnt=411) BASOPHILS ABSOLUTE COUNT (BEAKER) (test 0.02 K/ L 0.01-0.08 ljmw=263) IMMATURE GRANULOCYTES-RELATIVE PERCENT (BEAKER) 0 % 0-1 (test qhrd=7619) RAD, CHEST, 1 VIEW, NON [id number] 07:24:00Reason for exam:->s/p surgery/ intubation/CTShould this be performed at the bedside?->YesFINAL REPORT Chest, one view. HISTORY: Postop COMPARISON: 05/23/2017 IMPRESSION: Supporting hardware unchanged in position. No pneumothorax. Trace left pleural effusion. Mild interstitial edema. Unchanged enlargement of the cardiomediastinal silhouette. Mild left basilar atelectasis. Signed: Roberto Arreola Verified Date/Time: 05/24/2017 07:24:37 Reading Location: [address] Body Reading Room LACTIC ACID, ARTERIAL, WHOLE [id number] 05:44:00 Test Item Value Reference Range Comments LACTATE BLOOD ARTERIAL (2) (BEAKER) (test 1.8 mmol/L 0.5-2.2 lbih=0528) Effective 01/10/2016: Units/Reference Range ChangeNew: 0.5-2.2 mmol/L Previous: 5 -20 mg/dLBASIC METABOLIC [id number] 05:42:00 Test Item Value Reference Range Comments SODIUM (BEAKER) (test 142 meq/L 136-145 kagq=935) POTASSIUM (BEAKER) (test 4.9 meq/L 3.5-5.1 ebsk=474) CHLORIDE (BEAKER) (test 116 meq/L 98-107 fvmu=388) CO2 (BEAKER) (test 20 meq/L 22-29 gbxk=231) BLOOD UREA NITROGEN 21 mg/dL 7-21 (BEAKER) (test ymak=278) CREATININE (BEAKER) (test 1.05 mg/dL 0.57-1.25 zuty=706) GLUCOSE RANDOM (BEAKER) 140 mg/dL 70-105 (test qrqn=980) CALCIUM (BEAKER) (test 7.4 mg/dL 8.4-10.2 bise=037) EGFR (BEAKER) (test 51 mL/min/1.73 sq m ESTIMATED GFR IS NOT htks=0129) ACCURATE CREATININE CLEARANCE IN PREDICTING GLOMERULAR FILTRATION RATE. ESTIMATED GFR IS NOT APPLICABLE FOR DIALYSIS PATIENTS. BLOOD GAS, [id number] 05:34:00 Test Item Value Reference Range Comments PH ARTERIAL (BEAKER) (test uvnu=803) 7.33 7.35-7.45 PCO2 ARTERIAL (BEAKER) (test ysyr=257) 41 mmHg 35-45 PO2 ARTERIAL (BEAKER) (test hhop=640) 102 mmHg 80-90 O2 SATURATION ARTERIAL (BEAKER) (test jsej=346) 97.3 % 96.0-97.0 HCO3 ARTERIAL (BEAKER) (test ylog=452) 21 mmol/L 21-29 BASE EXCESS ARTERIAL (BEAKER) (test whnw=737) -4.3 mmol/L -2.0-3.0 PATIENT TEMPERATURE (BEAKER) (test tqkr=7173) 37.0 C [id number] 05:28:00 Test Item Value Reference Range Comments PHOSPHORUS (BEAKER) (test mjly=878) 4.7 mg/dL 2.3-4.7 [id number] 05:28:00 Test Item Value Reference Range Comments MAGNESIUM (BEAKER) (test gggb=000) 2.3 mg/dL 1.6-2.6 OXYGEN SATURATION, [id number] 05:13:00 Test Item Value Reference Range Comments O2 SATURATION (MEASURED) (BEAKER) (test hpmg=6802) 66.1 % CALCIUM, [id number] 05:13:00 Test Item Value Reference Range Comments CALCIUM IONIZED (BEAKER) (test rsvl=272) 1.08 mmol/L 1.12-1.27 PH, BLOOD (BEAKER) (test qesd=8108) 7.29 CBC W/PLT COUNT & AUTO [id number] 05:11:00 Test Item Value Reference Range Comments WHITE BLOOD CELL COUNT (BEAKER) (test gmha=841) 9.6 K/ L 3.5-10.5 RED BLOOD CELL COUNT (BEAKER) (test cnrv=031) 2.92 M/ L 3.93-5.22 HEMOGLOBIN (BEAKER) (test zjeu=636) 8.6 GM/DL 11.2-15.7 HEMATOCRIT (BEAKER) (test mjdp=863) 26.2 % 34.1-44.9 MEAN CORPUSCULAR VOLUME (BEAKER) (test fmst=231) 89.7 fL 79.4-94.8 MEAN CORPUSCULAR HEMOGLOBIN (BEAKER) (test 29.5 pg 25.6-32.2 ydio=943) MEAN CORPUSCULAR HEMOGLOBIN CONC (BEAKER) (test 32.8 GM/DL 32.2-35.5 yoaa=999) RED CELL DISTRIBUTION WIDTH (BEAKER) (test 16.3 % 11.7-14.4 xvwz=702) PLATELET COUNT (BEAKER) (test gxmy=705) 140 K/CU MM 150-450 MEAN PLATELET VOLUME (BEAKER) (test voqx=616) 10.3 fL 9.4-12.3 NUCLEATED RED BLOOD CELLS (BEAKER) (test 0 /100 WBC 0-0 vzzh=445) NEUTROPHILS RELATIVE PERCENT (BEAKER) (test 78 % rord=048) LYMPHOCYTES RELATIVE PERCENT (BEAKER) (test 9 % aypf=270) MONOCYTES RELATIVE PERCENT (BEAKER) (test 12 % enwk=517) EOSINOPHILS RELATIVE PERCENT (BEAKER) (test 0 % fuie=127) BASOPHILS RELATIVE PERCENT (BEAKER) (test 0 % priq=118) NEUTROPHILS ABSOLUTE COUNT (BEAKER) (test 7.53 K/ L 1.56-6.13 kecg=624) LYMPHOCYTES ABSOLUTE COUNT (BEAKER) (test 0.86 K/ L 1.18-3.74 twvy=774) MONOCYTES ABSOLUTE COUNT (BEAKER) (test 1.14 K/ L 0.24-0.36 wppm=943) EOSINOPHILS ABSOLUTE COUNT (BEAKER) (test 0.02 K/ L 0.04-0.36 ezvy=282) BASOPHILS ABSOLUTE COUNT (BEAKER) (test 0.03 K/ L 0.01-0.08 zzvl=013) IMMATURE GRANULOCYTES-RELATIVE PERCENT (BEAKER) 1 % 0-1 (test ovev=5046) BLOOD GAS, [id number] 23:38:00 Test Item Value Reference Range Comments PH ARTERIAL (BEAKER) (test nkam=743) 7.34 7.35-7.45 PCO2 ARTERIAL (BEAKER) (test mzyy=989) 43 mmHg 35-45 PO2 ARTERIAL (BEAKER) (test dynz=736) 98 mmHg 80-90 O2 SATURATION ARTERIAL (BEAKER) (test hbhj=946) 96.6 % 96.0-97.0 HCO3 ARTERIAL (BEAKER) (test iefd=156) 22 mmol/L 21-29 BASE EXCESS ARTERIAL (BEAKER) (test ctko=516) -2.8 mmol/L -2.0-3.0 PATIENT TEMPERATURE (BEAKER) (test heia=4516) 38.5 C FIO2 (BEAKER) (test rthy=3229) 40.0 % HEMOGLOBIN AND [id number] 23:38:00 Test Item Value Reference Range Comments HEMOGLOBIN (BEAKER) (test paye=737) 7.6 g/dL 12.0-15.0 HEMATOCRIT (BEAKER) (test xklp=228) 22.0 % 36.0-45.0 Done at stat lab.BLOOD GAS, [id number] 16:58:00 Test Item Value Reference Range Comments PH ARTERIAL (BEAKER) (test wtlq=633) 7.36 7.35-7.45 PCO2 ARTERIAL (BEAKER) (test tuot=991) 38 mmHg 35-45 PO2 ARTERIAL (BEAKER) (test iuhp=724) 103 mmHg 80-90 O2 SATURATION ARTERIAL (BEAKER) (test zqqk=110) 97.5 % 96.0-97.0 HCO3 ARTERIAL (BEAKER) (test kevz=752) 21 mmol/L 21-29 BASE EXCESS ARTERIAL (BEAKER) (test vkst=292) -4.5 mmol/L -2.0-3.0 PATIENT TEMPERATURE (BEAKER) (test kuel=9168) 37.0 C FIO2 (BEAKER) (test gjpy=5060) 50.0 % GLUCOSE-STAT [id number] 16:58:00 Test Item Value Reference Range Comments GLUCOSE RANDOM (BEAKER) (test suzu=281) 168 mg/dL 70-110 BLOOD GAS, [id number] 16:24:00 Test Item Value Reference Range Comments PH ARTERIAL (BEAKER) (test wlss=437) 7.34 7.35-7.45 PCO2 ARTERIAL (BEAKER) (test xagw=651) 40 mmHg 35-45 PO2 ARTERIAL (BEAKER) (test etpi=918) 39 mmHg 80-90 O2 SATURATION ARTERIAL (BEAKER) (test pusi=920) 72.7 % 96.0-97.0 HCO3 ARTERIAL (BEAKER) (test tzkn=965) 21 mmol/L 21-29 BASE EXCESS ARTERIAL (BEAKER) (test vhfe=186) -4.5 mmol/L -2.0-3.0 PATIENT TEMPERATURE (BEAKER) (test rluw=4664) 36.4 C FIO2 (BEAKER) (test ukwd=0805) 40.0 % CBC W/PLT COUNT & AUTO [id number] 15:55:00 Test Item Value Reference Range Comments WHITE BLOOD CELL COUNT 17.4 K/ L 3.5-10.5 (BEAKER) (test plah=666) RED BLOOD CELL COUNT (BEAKER) 2.94 M/ L 3.93-5.22 (test lwxb=554) HEMOGLOBIN (BEAKER) (test 8.8 GM/DL 11.2-15.7 rwed=870) HEMATOCRIT (BEAKER) (test 26.4 % 34.1-44.9 eizh=933) MEAN CORPUSCULAR VOLUME 89.8 fL 79.4-94.8 Discordant result compared (BEAKER) (test tljd=197) to previous result; clinical correlation required. MEAN CORPUSCULAR HEMOGLOBIN 29.9 pg 25.6-32.2 (BEAKER) (test rspf=547) MEAN CORPUSCULAR HEMOGLOBIN 33.3 GM/DL 32.2-35.5 CONC (BEAKER) (test bmvb=384) RED CELL DISTRIBUTION WIDTH 15.8 % 11.7-14.4 (BEAKER) (test bdjj=619) PLATELET COUNT (BEAKER) (test 167 K/CU MM 150-450 pito=331) MEAN PLATELET VOLUME (BEAKER) 9.1 fL 9.4-12.3 (test qzaj=770) NUCLEATED RED BLOOD CELLS 0 /100 WBC 0-0 (BEAKER) (test fpwj=541) NEUTROPHILS RELATIVE PERCENT 83 % (BEAKER) (test hxhh=643) LYMPHOCYTES RELATIVE PERCENT 10 % (BEAKER) (test csrr=036) MONOCYTES RELATIVE PERCENT 5 % (BEAKER) (test qsmc=449) EOSINOPHILS RELATIVE PERCENT 0 % (BEAKER) (test djwc=254) BASOPHILS RELATIVE PERCENT 0 % (BEAKER) (test nsjh=884) NEUTROPHILS ABSOLUTE COUNT 14.43 K/ L 1.56-6.13 (BEAKER) (test eiay=922) LYMPHOCYTES ABSOLUTE COUNT 1.78 K/ L 1.18-3.74 (BEAKER) (test pewx=357) MONOCYTES ABSOLUTE COUNT 0.91 K/ L 0.24-0.36 (BEAKER) (test kfej=316) EOSINOPHILS ABSOLUTE COUNT 0.05 K/ L 0.04-0.36 (BEAKER) (test mtkq=203) BASOPHILS ABSOLUTE COUNT 0.03 K/ L 0.01-0.08 (BEAKER) (test xblh=476) IMMATURE 1 % 0-1 GRANULOCYTES-RELATIVE PERCENT (BEAKER) (test fbeu=2805) RAD, CHEST, 1 VIEW, NON [id number] 15:35:00Reason for exam:->immediate post cardiothoracic surgery/intubationShould this [...] Wilkinson Verified Date/Time: 05/23/2017 15:35:23 Reading Location: [address] Consult Reading Room THROMBOELASTOGRAPH (TEG)2017-05-23 15:00:00 Test Item Value Reference Range Comments TEG ACTIVATED CLOTTING TIME (BEAKER) (test 5.6 minutes 4.0-7.0 suta=4291) TEG FIBRINOGEN ACTIVITY (BEAKER) (test 70.5 degrees 61.0-73.0 wyza=1647) TEG PLT. AGGREGATION (BEAKER) (test aabn=0581) 46.6 MM 55.0-65.0 TEG FIBRINOLYSIS (BEAKER) (test ugmc=0131) 22.6 % 0.0-5.0 TGH ACTIVATED CLOTTING TIME (BEAKER) (test 6.2 minutes 4.0-7.0 jnro=2021) TGH FIBRINOGEN ACTIVITY (BEAKER) (test 72.7 degrees 61.0-73.0 etxq=4984) TGH PLT. AGGREGATION (BEAKER) (test bkqf=9214) 63.0 MM 55.0-65.0 TGH FIBRINOLYSIS (BEAKER) (test hknn=6809) 0.0 % 0.0-5.0 BASIC METABOLIC [id number] 14:05:00 Test Item Value Reference Range Comments SODIUM (BEAKER) (test 142 meq/L 136-145 kmty=993) POTASSIUM (BEAKER) (test 4.4 meq/L 3.5-5.1 Specimen slightly dues=270) hemolyzed CHLORIDE (BEAKER) (test 114 meq/L 98-107 tkrh=751) CO2 (BEAKER) (test 21 meq/L 22-29 efdt=498) BLOOD UREA NITROGEN 19 mg/dL 7-21 (BEAKER) (test nyyt=992) CREATININE (BEAKER) (test 0.86 mg/dL 0.57-1.25 Specimen slightly gsbg=098) hemolyzed GLUCOSE RANDOM (BEAKER) 107 mg/dL 70-105 (test lfmp=757) CALCIUM (BEAKER) (test 8.4 mg/dL 8.4-10.2 cktj=786) EGFR (BEAKER) (test 64 mL/min/1.73 sq m ESTIMATED GFR IS NOT zozl=5150) ACCURATE CREATININE CLEARANCE IN PREDICTING GLOMERULAR FILTRATION RATE. ESTIMATED GFR IS NOT APPLICABLE FOR DIALYSIS PATIENTS. LACTIC ACID, ARTERIAL, WHOLE [id number] 14:01:00 Test Item Value Reference Range Comments LACTATE BLOOD ARTERIAL (2) 2.1 mmol/L 0.5-2.2 Specimen slightly hemolyzed (BEAKER) (test czjh=3036) Effective 01/10/2016: Units/Reference Range ChangeNew: 0.5-2.2 mmol/L Previous: 5 -20 mg/dLGLUCOSE-STAT [id number] 13:42:00 Test Item Value Reference Range Comments GLUCOSE RANDOM (BEAKER) (test jkbe=951) 105 mg/dL 70-110 SODIUM NA-STAT [id number] 13:42:00 Test Item Value Reference Range Comments SODIUM (BEAKER) (test rezg=899) 137 meq/L 135-148 POTASSIUM-STAT [id number] 13:42:00 Test Item Value Reference Range Comments POTASSIUM (BEAKER) (test xuge=667) 4.2 meq/L 3.6-5.5 BLOOD GAS, [id number] 13:42:00 Test Item Value Reference Range Comments PH ARTERIAL (BEAKER) (test qseq=134) 7.41 7.35-7.45 PCO2 ARTERIAL (BEAKER) (test gpyp=405) 33 mmHg 35-45 PO2 ARTERIAL (BEAKER) (test iyia=982) 53 mmHg 80-90 O2 SATURATION ARTERIAL (BEAKER) (test dseh=871) 91.8 % 96.0-97.0 HCO3 ARTERIAL (BEAKER) (test ljsy=402) 21 mmol/L 21-29 BASE EXCESS ARTERIAL (BEAKER) (test twav=800) -3.7 mmol/L -2.0-3.0 PATIENT TEMPERATURE (BEAKER) (test fxgw=4952) 34.4 C FIO2 (BEAKER) (test lziu=2732) 60.0 % HGB/HCT (H&H) - STAT [id number] 13:42:00 Test Item Value Reference Range Comments HEMOGLOBIN (BEAKER) (test ocrl=107) 9.1 g/dL 12.0-15.0 HEMATOCRIT (BEAKER) (test cega=607) 27.0 % 36.0-45.0 CALCIUM, [id number] 13:42:00 Test Item Value Reference Range Comments CALCIUM IONIZED (BEAKER) (test awdn=083) 1.17 mmol/L 1.12-1.27 PH, BLOOD (BEAKER) (test ihiy=6044) 7.37 OXYGEN SATURATION, [id number] 13:41:00 Test Item Value Reference Range Comments O2 SATURATION (MEASURED) (BEAKER) (test pcua=3125) 53.2 % [id number] 13:02:00 Test Item Value Reference Range Comments ACTIVATED CLOTTING TIME 109 sec TESTED AT [place] [address] [address] (BEAKER) (test thlj=340) [place] [address] [id number] 13:02:00 Test Item Value Reference Range Comments ACTIVATED CLOTTING TIME 543 sec TESTED AT [place] [address] [facility] (BEAKER) (test pobi=690) [place] [address] [id number] 13:02:00 Test Item Value Reference Range Comments ACTIVATED CLOTTING TIME 477 sec TESTED AT [place] [address] [address] (BEAKER) (test actd=960) [place] [address] [id number] 13:02:00 Test Item Value Reference Range Comments ACTIVATED CLOTTING TIME 538 sec TESTED AT [address] (BEAKER) (test umft=235) [place] [address] [id number] 13:02:00 Test Item Value Reference Range Comments ACTIVATED CLOTTING TIME 610 sec TESTED AT [place] [address] [facility] (BEAKER) (test flai=430) [place] [address] [id number] 13:02:00 Test Item Value Reference Range Comments ACTIVATED CLOTTING TIME 367 sec TESTED AT [address] (BEAKER) (test wfam=154) [place] [address] [id number] 13:02:00 Test Item Value Reference Range Comments ACTIVATED CLOTTING TIME 516 sec TESTED AT [address] (BEAKER) (test erbc=447) [place] [address] BLOOD GAS, [id number] 12:22:00 Test Item Value Reference Range Comments PH ARTERIAL (BEAKER) (test disi=019) 7.29 7.35-7.45 PCO2 ARTERIAL (BEAKER) (test yudv=013) 42 mmHg 35-45 PO2 ARTERIAL (BEAKER) (test bgyq=347) 138 mmHg 80-90 O2 SATURATION ARTERIAL (BEAKER) (test wcne=262) 98.6 % 96.0-97.0 HCO3 ARTERIAL (BEAKER) (test gigq=839) 20 mmol/L 21-29 BASE EXCESS ARTERIAL (BEAKER) (test udzj=378) -6.6 mmol/L -2.0-3.0 PATIENT TEMPERATURE (BEAKER) (test nafq=4613) 35.3 C FIO2 (BEAKER) (test lmmu=0769) 100.0 % GLUCOSE-STAT [id number] 12:22:00 Test Item Value Reference Range Comments GLUCOSE RANDOM (BEAKER) (test jbls=428) 141 mg/dL 70-110 HGB/HCT (H&H) - STAT [id number] 12:22:00 Test Item Value Reference Range Comments HEMOGLOBIN (BEAKER) (test atix=263) 8.6 g/dL 12.0-15.0 HEMATOCRIT (BEAKER) (test qxjg=975) 25.0 % 36.0-45.0 SODIUM NA-STAT [id number] 12:19:00 Test Item Value Reference Range Comments SODIUM (BEAKER) (test tnjk=504) 137 meq/L 135-148 POTASSIUM-STAT [id number] 12:19:00 Test Item Value Reference Range Comments POTASSIUM (BEAKER) (test owhk=956) 4.5 meq/L 3.6-5.5 SODIUM NA-STAT [id number] 11:50:00 Test Item Value Reference Range Comments SODIUM (BEAKER) (test sfwj=758) 135 meq/L 135-148 POTASSIUM-STAT [id number] 11:50:00 Test Item Value Reference Range Comments POTASSIUM (BEAKER) (test slzi=254) 5.1 meq/L 3.6-5.5 BLOOD GAS, [id number] 11:50:00 Test Item Value Reference Range Comments PH ARTERIAL (BEAKER) (test qwju=350) 7.33 7.35-7.45 PCO2 ARTERIAL (BEAKER) (test lxri=292) 41 mmHg 35-45 PO2 ARTERIAL (BEAKER) (test lehp=728) 124 mmHg 80-90 O2 SATURATION ARTERIAL (BEAKER) (test qsxx=761) 98.3 % 96.0-97.0 HCO3 ARTERIAL (BEAKER) (test cuhq=070) 21 mmol/L 21-29 BASE EXCESS ARTERIAL (BEAKER) (test zvym=126) -4.6 mmol/L -2.0-3.0 PATIENT TEMPERATURE (BEAKER) (test qhws=0733) 36.0 C FIO2 (BEAKER) (test phig=8797) 100.0 % GLUCOSE-STAT [id number] 11:50:00 Test Item Value Reference Range Comments GLUCOSE RANDOM (BEAKER) (test cacm=706) 131 mg/dL 70-110 HGB/HCT (H&H) - STAT [id number] 11:50:00 Test Item Value Reference Range Comments HEMOGLOBIN (BEAKER) (test pqjv=369) 6.7 g/dL 12.0-15.0 HEMATOCRIT (BEAKER) (test wijc=108) 20.0 % 36.0-45.0 CALCIUM, [id number] 11:50:00 Test Item Value Reference Range Comments CALCIUM IONIZED (BEAKER) (test xgws=090) 1.19 mmol/L 1.12-1.27 PH, BLOOD (BEAKER) (test tfeg=7608) 7.32 BLOOD GAS, [id number] 11:13:00 Test Item Value Reference Range Comments PH ARTERIAL (BEAKER) (test dkbg=825) 7.37 7.35-7.45 PCO2 ARTERIAL (BEAKER) (test lfnv=195) 40 mmHg 35-45 PO2 ARTERIAL (BEAKER) (test krem=558) 332 mmHg 80-90 O2 SATURATION ARTERIAL (BEAKER) (test hktv=940) 99.7 % 96.0-97.0 HCO3 ARTERIAL (BEAKER) (test tita=122) 23 mmol/L 21-29 BASE EXCESS ARTERIAL (BEAKER) (test spwc=900) -2.0 mmol/L -2.0-3.0 PATIENT TEMPERATURE (BEAKER) (test akae=4505) 36.5 C FIO2 (BEAKER) (test rkxj=8690) 70.0 % GLUCOSE-STAT [id number] 11:13:00 Test Item Value Reference Range Comments GLUCOSE RANDOM (BEAKER) (test ocpw=332) 142 mg/dL 70-110 HGB/HCT (H&H) - STAT [id number] 11:13:00 Test Item Value Reference Range Comments HEMOGLOBIN (BEAKER) (test efvn=590) 6.7 g/dL 12.0-15.0 HEMATOCRIT (BEAKER) (test yvlv=288) 20.0 % 36.0-45.0 POTASSIUM-STAT [id number] 11:13:00 Test Item Value Reference Range Comments POTASSIUM (BEAKER) (test xmkl=939) 6.0 meq/L 3.6-5.5 SODIUM NA-STAT [id number] 11:12:00 Test Item Value Reference Range Comments SODIUM (BEAKER) (test vqng=297) 135 meq/L 135-148 POTASSIUM-STAT [id number] 10:57:00 Test Item Value Reference Range Comments POTASSIUM (BEAKER) (test rydn=333) 5.5 meq/L 3.6-5.5 BLOOD GAS, [id number] 10:57:00 Test Item Value Reference Range Comments PH ARTERIAL (BEAKER) (test tnke=983) 7.35 7.35-7.45 PCO2 ARTERIAL (BEAKER) (test udke=401) 42 mmHg 35-45 PO2 ARTERIAL (BEAKER) (test bylv=084) 375 mmHg 80-90 O2 SATURATION ARTERIAL (BEAKER) (test vjan=861) 99.8 % 96.0-97.0 HCO3 ARTERIAL (BEAKER) (test vogm=963) 23 mmol/L 21-29 BASE EXCESS ARTERIAL (BEAKER) (test bgsb=995) -2.8 mmol/L -2.0-3.0 PATIENT TEMPERATURE (BEAKER) (test gvux=8722) 36.5 C FIO2 (BEAKER) (test hpga=0201) 70.0 % SODIUM NA-STAT [id number] 10:57:00 Test Item Value Reference Range Comments SODIUM (BEAKER) (test aqvp=906) 134 meq/L 135-148 GLUCOSE-STAT [id number] 10:57:00 Test Item Value Reference Range Comments GLUCOSE RANDOM (BEAKER) (test ecyd=965) 153 mg/dL 70-110 HGB/HCT (H&H) - STAT [id number] 10:57:00 Test Item Value Reference Range Comments HEMOGLOBIN (BEAKER) (test fmnc=060) 7.3 g/dL 12.0-15.0 HEMATOCRIT (BEAKER) (test enuu=000) 21.0 % 36.0-45.0 BLOOD GAS, [id number] 10:31:00 Test Item Value Reference Range Comments PH ARTERIAL (BEAKER) (test jhzo=499) 7.48 7.35-7.45 PCO2 ARTERIAL (BEAKER) (test ccyc=083) 33 mmHg 35-45 PO2 ARTERIAL (BEAKER) (test fklh=469) 324 mmHg 80-90 O2 SATURATION ARTERIAL (BEAKER) (test ezss=476) 99.8 % 96.0-97.0 HCO3 ARTERIAL (BEAKER) (test obkz=935) 25 mmol/L 21-29 BASE EXCESS ARTERIAL (BEAKER) (test icjf=266) 0.5 mmol/L -2.0-3.0 PATIENT TEMPERATURE (BEAKER) (test eicp=4695) 34.2 C FIO2 (BEAKER) (test cfnq=1474) 70.0 % SODIUM NA-STAT [id number] 10:31:00 Test Item Value Reference Range Comments SODIUM (BEAKER) (test ogsg=901) 134 meq/L 135-148 POTASSIUM-STAT [id number] 10:31:00 Test Item Value Reference Range Comments POTASSIUM (BEAKER) (test vevu=533) 5.6 meq/L 3.6-5.5 GLUCOSE-STAT [id number] 10:31:00 Test Item Value Reference Range Comments GLUCOSE RANDOM (BEAKER) (test bquq=073) 166 mg/dL 70-110 HGB/HCT (H&H) - STAT [id number] 10:31:00 Test Item Value Reference Range Comments HEMOGLOBIN (BEAKER) (test rnng=364) 6.5 g/dL 12.0-15.0 HEMATOCRIT (BEAKER) (test fuol=200) 19.0 % 36.0-45.0 BLOOD GAS, [id number] 10:06:00 Test Item Value Reference Range Comments PH VENOUS (BEAKER) (test qfkb=180) 7.32 7.32-7.42 PCO2 VENOUS (BEAKER) (test kvcu=400) 44 mmHg 41-51 PO2 VENOUS (BEAKER) (test jooq=619) 41 mmHg 25-40 O2 SATURATION VENOUS (BEAKER) (test llak=471) 80.5 % 40.0-70.0 HCO3 VENOUS (BEAKER) (test qxmg=158) 23 mmol/L 21-29 BASE EXCESS VENOUS (BEAKER) (test dbcc=494) -3.6 mmol/L -2.0-3.0 PATIENT TEMPERATURE (BEAKER) (test dbhw=1585) 34.0 C FIO2 (BEAKER) (test udmu=3865) 80.0 % BLOOD GAS, [id number] 10:06:00 Test Item Value Reference Range Comments PH ARTERIAL (BEAKER) (test cwyz=388) 7.38 7.35-7.45 PCO2 ARTERIAL (BEAKER) (test dfwb=599) 35 mmHg 35-45 PO2 ARTERIAL (BEAKER) (test dpou=923) 548 mmHg 80-90 O2 SATURATION ARTERIAL (BEAKER) (test ieje=695) 99.9 % 96.0-97.0 HCO3 ARTERIAL (BEAKER) (test oksh=586) 21 mmol/L 21-29 BASE EXCESS ARTERIAL (BEAKER) (test prlk=977) -4.5 mmol/L -2.0-3.0 PATIENT TEMPERATURE (BEAKER) (test zatc=9546) 34.0 C FIO2 (BEAKER) (test mvps=1058) 80.0 % SODIUM NA-STAT [id number] 10:06:00 Test Item Value Reference Range Comments SODIUM (BEAKER) (test ttcx=870) 131 meq/L 135-148 HGB/HCT (H&H) - STAT [id number] 10:06:00 Test Item Value Reference Range Comments HEMOGLOBIN (BEAKER) (test olpo=017) 5.3 g/dL 12.0-15.0 HEMATOCRIT (BEAKER) (test fazr=245) 16.0 % 36.0-45.0 POTASSIUM-STAT [id number] 10:05:00 Test Item Value Reference Range Comments POTASSIUM (BEAKER) (test jrpf=964) 4.5 meq/L 3.6-5.5 GLUCOSE-STAT [id number] 10:05:00 Test Item Value Reference Range Comments GLUCOSE RANDOM (BEAKER) (test vmfv=924) 169 mg/dL 70-110 BLOOD GAS, [id number] 08:10:00 Test Item Value Reference Range Comments PH ARTERIAL (BEAKER) (test kusd=915) 7.42 7.35-7.45 PCO2 ARTERIAL (BEAKER) (test hrdn=250) 39 mmHg 35-45 PO2 ARTERIAL (BEAKER) (test gmpb=561) 454 mmHg 80-90 O2 SATURATION ARTERIAL (BEAKER) (test jmbr=174) 99.9 % 96.0-97.0 HCO3 ARTERIAL (BEAKER) (test wqhl=958) 25 mmol/L 21-29 BASE EXCESS ARTERIAL (BEAKER) (test flyz=866) 0.5 mmol/L -2.0-3.0 PATIENT TEMPERATURE (BEAKER) (test lxxo=3680) 37.0 C FIO2 (BEAKER) (test ngus=9383) 87.0 % GLUCOSE-STAT [id number] 08:10:00 Test Item Value Reference Range Comments GLUCOSE RANDOM (BEAKER) (test srkg=560) 113 mg/dL 70-110 HGB/HCT (H&H) - STAT [id number] 08:10:00 Test Item Value Reference Range Comments HEMOGLOBIN (BEAKER) (test kjsi=995) 9.1 g/dL 12.0-15.0 HEMATOCRIT (BEAKER) (test hyoh=019) 27.0 % 36.0-45.0 SODIUM NA-STAT [id number] 08:09:00 Test Item Value Reference Range Comments SODIUM (BEAKER) (test fkry=483) 138 meq/L 135-148 POTASSIUM-STAT [id number] 08:09:00 Test Item Value Reference Range Comments POTASSIUM (BEAKER) (test qgyf=683) 4.1 meq/L 3.6-5.5 CALCIUM, [id number] 08:09:00 Test Item Value Reference Range Comments CALCIUM IONIZED (BEAKER) (test lgme=679) 1.13 mmol/L 1.12-1.27 PH, BLOOD (BEAKER) (test yccf=6840) 7.42 TROPONIN [id number] 04:51:00 Test Item Value Reference Range Comments TROPONIN I (BEAKER) (test sjrw=834) 0.78 ng/mL 0.00-0.03 Troponin I (TnI) levels [...] acute neurological disease, and persistent tachyarrhythmia.BASIC METABOLIC [id number] 04:48:00 Test Item Value Reference Range Comments SODIUM (BEAKER) (test 139 meq/L 136-145 xhcp=637) POTASSIUM (BEAKER) (test 4.7 meq/L 3.5-5.1 hwsr=938) CHLORIDE (BEAKER) (test 110 meq/L 98-107 omab=197) CO2 (BEAKER) (test 22 meq/L 22-29 eawy=397) BLOOD UREA NITROGEN 24 mg/dL 7-21 (BEAKER) (test tlgq=856) CREATININE (BEAKER) (test 1.01 mg/dL 0.57-1.25 cxgg=580) GLUCOSE RANDOM (BEAKER) 119 mg/dL 70-105 (test ueyf=026) CALCIUM (BEAKER) (test 8.7 mg/dL 8.4-10.2 aowi=958) EGFR (BEAKER) (test 53 mL/min/1.73 sq m ESTIMATED GFR IS NOT wxbd=9211) ACCURATE CREATININE CLEARANCE IN PREDICTING GLOMERULAR FILTRATION RATE. ESTIMATED GFR IS NOT APPLICABLE FOR DIALYSIS PATIENTS. CREATINE KINASE (CK), TOTAL AND [id number] 04:46:00 Test Item Value Reference Range Comments CREATINE KINASE TOTAL (BEAKER) (test bvfi=389) 65 U/L 29-200 CREATINE KINASE-MB (BEAKER) (test zdpo=524) 2.1 ng/mL 0.0-6.6 CREATINE KINASE-MB INDEX (BEAKER) (test vvoi=983) 3.2 % CK-MB Reference Range:<6.7 Normal6.7-10.0 Borderline>10.0 AbnormalCBC W/PLT COUNT & AUTO [id number] 04:20:00 Test Item Value Reference Range Comments WHITE BLOOD CELL COUNT (BEAKER) (test dfpn=186) 19.7 K/ L 3.5-10.5 RED BLOOD CELL COUNT (BEAKER) (test qicy=932) 2.77 M/ L 3.93-5.22 HEMOGLOBIN (BEAKER) (test ufly=825) 8.4 GM/DL 11.2-15.7 HEMATOCRIT (BEAKER) (test orfq=963) 26.8 % 34.1-44.9 MEAN CORPUSCULAR VOLUME (BEAKER) (test cxnr=878) 96.8 fL 79.4-94.8 MEAN CORPUSCULAR HEMOGLOBIN (BEAKER) (test 30.3 pg 25.6-32.2 cfmv=627) MEAN CORPUSCULAR HEMOGLOBIN CONC (BEAKER) (test 31.3 GM/DL 32.2-35.5 wgma=794) RED CELL DISTRIBUTION WIDTH (BEAKER) (test 14.2 % 11.7-14.4 hego=278) PLATELET COUNT (BEAKER) (test ggwv=573) 169 K/CU MM 150-450 MEAN PLATELET VOLUME (BEAKER) (test nqck=932) 12.9 fL 9.4-12.3 NUCLEATED RED BLOOD CELLS (BEAKER) (test 0 /100 WBC 0-0 lsyf=618) NEUTROPHILS RELATIVE PERCENT (BEAKER) (test 83 % erjb=197) LYMPHOCYTES RELATIVE PERCENT (BEAKER) (test 9 % vubo=784) MONOCYTES RELATIVE PERCENT (BEAKER) (test 7 % whhw=291) EOSINOPHILS RELATIVE PERCENT (BEAKER) (test 0 % vcom=349) BASOPHILS RELATIVE PERCENT (BEAKER) (test 0 % hdoa=262) NEUTROPHILS ABSOLUTE COUNT (BEAKER) (test 16.40 K/ L 1.56-6.13 yaat=053) LYMPHOCYTES ABSOLUTE COUNT (BEAKER) (test 1.84 K/ L 1.18-3.74 yizs=305) MONOCYTES ABSOLUTE COUNT (BEAKER) (test 1.29 K/ L 0.24-0.36 bjvg=848) EOSINOPHILS ABSOLUTE COUNT (BEAKER) (test 0.00 K/ L 0.04-0.36 jxil=081) BASOPHILS ABSOLUTE COUNT (BEAKER) (test 0.02 K/ L 0.01-0.08 bosi=279) IMMATURE GRANULOCYTES-RELATIVE PERCENT (BEAKER) 1 % 0-1 (test xxpd=9724) [id number] 04:14:00 Test Item Value Reference Range Comments PARTIAL THROMBOPLASTIN TIME (BEAKER) (test 74.8 seconds 22.5-36.0 jvqn=935) HEMOGLOBIN [id number] 21:12:00 Test Item Value Reference Range Comments HEMOGLOBIN A1C (BEAKER) (test ween=787) 6.0 % 4.3-6.1 [id number] 19:53:00 Test Item Value Reference Range Comments FERRITIN (BEAKER) (test ldib=059) 58 ng/mL 5-275 TROPONIN [id number] 19:49:00 Test Item Value Reference Range Comments TROPONIN I (BEAKER) (test byin=897) 0.69 ng/mL 0.00-0.03 Troponin I (TnI) levels [...] NATRIURETIC PEPTIDE (BEAKER) (test 202 pg/mL 0-100 cvfd=094) IRON, TIBC, % SAT. (WITHOUT FERRITIN)[id number] 19:32:00 Test Item Value Reference Range Comments IRON (BEAKER) (test sbka=214) 36 ug/dL 40-160 TOTAL IRON BINDING CAPACITY (BEAKER) (test 365 ug/dL 250-450 cagy=535) IRON % SATURATION (2) (BEAKER) (test wgwi=4575) 10 % 20-55 LIPID [id number] 19:30:00 Test Item Value Reference Range Comments TRIGLYCERIDES (BEAKER) (test goqu=364) 86 mg/dL CHOLESTEROL (BEAKER) (test tofr=311) 114 mg/dL HDL CHOLESTEROL (BEAKER) (test yfcx=462) 40 mg/dL LDL CHOLESTEROL CALCULATED (BEAKER) (test 57 mg/dL tprt=880) Triglyceride Reference Range: Low Risk <150 Borderline 150- 199 High Risk 200-499 Very High Risk >=500Cholesterol Reference Range: Low Risk <200 Borderline 200-239 High Risk > 240HDL Cholesterol Reference Range: Low Risk >=60 High Risk <40LDL Cholesterol Reference Range: Optimal <100 Near Optimal 100-129 Borderline 130-159 High 160-189 Very High >=190BASIC METABOLIC [id number] 19:30:00 Test Item Value Reference Range Comments SODIUM (BEAKER) (test 138 meq/L 136-145 cctx=071) POTASSIUM (BEAKER) (test 4.5 meq/L 3.5-5.1 kfcc=485) CHLORIDE (BEAKER) (test 108 meq/L 98-107 rqub=840) CO2 (BEAKER) (test 21 meq/L 22-29 fmzu=547) BLOOD UREA NITROGEN 23 mg/dL 7-21 (BEAKER) (test umam=811) CREATININE (BEAKER) (test 1.05 mg/dL 0.57-1.25 ukcl=065) GLUCOSE RANDOM (BEAKER) 195 mg/dL 70-105 (test cdir=095) CALCIUM (BEAKER) (test 8.9 mg/dL 8.4-10.2 lxvm=239) EGFR (BEAKER) (test 51 mL/min/1.73 sq m ESTIMATED GFR IS NOT qruv=6152) ACCURATE CREATININE CLEARANCE IN PREDICTING GLOMERULAR FILTRATION RATE. ESTIMATED GFR IS NOT APPLICABLE FOR DIALYSIS PATIENTS. RAD, CHEST, 1 VIEW, NON [id number] 19:30:00Reason for exam:->chest painShould this be performed [...] There is no acute bony abnormality. Signed: Jason [place] Verified Date/Time: 05/22/2017 19:30:20 Reading Location: [address] Reading Room [id number] 19:26:00 Test Item Value Reference Range Comments PARTIAL THROMBOPLASTIN TIME (BEAKER) (test 27.3 seconds 22.5-36.0 bkrg=017) PROTHROMBIN [id number] 19:25:00 Test Item Value Reference Range Comments PROTIME (BEAKER) (test pleg=121) 14.3 seconds 11.7-14.7 INR (BEAKER) (test hyip=526) 1.1 <=5.9 RECOMMENDED COUMADIN/WARFARIN INR THERAPY RANGESSTANDARD DOSE: 2.0 - 3.0 Includes: PROPHYLAXIS forvenous thrombosis, systemic embolization; TREATMENT for venous thrombosis and/or pulmonary embolus.HIGH RISK: Target INR is 2.5-3.5 for patients with mechanical heart valves.POCT-GLUCOSE [id number] 19:10:00 Test Item Value Reference Range Comments POC-GLUCOSE METER (JARRETT) 231 mg/dL 70-[address] [facility] [address] [facility] (test soih=6881) [facility] [id number]
--- NOTE | 2018-11-09 11:32 | RAD REPORT ---
EXAM DESCRIPTION: RAD - Humerus Left - 11/09/2018 11:25 am CLINICAL HISTORY: PAIN Fall, pain to shoulder COMPARISON: None FINDINGS: Left shoulder, two views and left humerus, two views are submitted Comminuted fracture of the proximal left humerus is noted. The bones are demineralized. No dislocatio n is evident.
--- NOTE | 2018-11-09 11:52 | ER ---
Nurse's Notes [facility] Name: Maricel Guerrero Age: 78 yrs Sex: Female : 1940 Arrival Date: 11/09/2018 Time: 09:44 Bed 16 Private MD: Dayanara Lester Diagnosis: Displaced comminuted fracture of shaft of humerus, left arm Presentation: 11/09 09:49 Presenting complaint: Patient states: tripped and fell on to left arm. Pt c/o left aa5 shoulder pain. Pt denies head injury, denies LOC. Care prior to arrival: None. Mechanism of Injury: Fall from standing position. Trauma event details: Injury occurred in the [facility], Injury occurred: at home. Injury occurred: November 09, 2018. 09:49 Acuity: WILL 3 aa5 09:49 Method Of Arrival: Wheelchair aa5 09:49 Transition of care: patient was not received from another setting of care. Onset of ls4 symptoms was November 09, 2018. Risk Assessment: Do you want to hurt yourself or someone else? Patient reports no desire to harm self or others. Initial Sepsis Screen: Does the patient meet any 2 criteria? No. Patient's initial sepsis screen is negative. Does the patient have a suspected source of infection? No. Patient's initial sepsis screen is negative. Triage Assessment: 10:00 General: Appears in no apparent distress. uncomfortable, Behavior is calm, cooperative. ls4 10:00 Pain: Complains of pain in left arm and anterior aspect of left shoulder Pain currently ls4 is 10 out of 10 on a pain scale. Neuro: No deficits noted. Cardiovascular: No deficits noted. Respiratory: No deficits noted. GI: No deficits noted. : No deficits noted. Derm: No deficits noted. Musculoskeletal: No deficits noted. Trauma Activation: Not Applicable Physician: ED Physician; Name: ; Notified At: ; Arrived At: Physician: General Surgeon; Name: ; Notified At: ; Arrived At: Physician: Radiology; Name: ; Notified At: ; Arrived At: Physician: Respiratory; Name: ; Notified At: ; Arrived At: Physician: Lab; Name: ; Notified At: ; Arrived At: Historical: - Allergies: 09:52 Iodine; aa5 - Home Meds: 09:52 albuterol INH [Active]; aspirin 81 mg Oral TbEC 1 tab once daily [Active]; atorvastatin aa5 20 mg Oral tab 1 tab once daily [Active]; Calcium Carbonate Oral 5000 mg daily [Active]; clopidogrel 75 mg Oral tab 1 tab once daily [Active]; donepezil 10 mg Oral tab 1 tab once daily [Active]; escitalopram oxalate 10 mg Oral tab 1 tab once daily [Active]; furosemide 20 mg Oral tab 1 tab once daily [Active]; Hemocyte-Plus 106 mg iron- 1 mg Oral cap 1 cap once daily [Active]; lisinopril 2.5 mg Oral tab 1 tab once daily [Active]; magnesium oxide 400 mg Oral cap daily [Active]; megestrol 40 mg Oral tab 1 tab 2 times per day [Active]; metformin 500 mg Oral tab 1 tab 2 times per day [Active]; metoprolol succinate XL 25 mg 1 tab daily daily [Active]; mirtazapine 30 mg Oral tab 1 tab once daily [Active]; multivitamin with minerals Oral tab daily [Active]; nicotine 21 mg/24 hr TD pt24 [Active]; nitroglycerin 0.4 mg Oral as needed [Active]; Zofran (as hydrochloride) 4 mg Oral tab every 8 hours [Active]; zolpidem 5 mg Oral tab 1 tab as needed [Active]; - PMHx: 09:52 AAA; Colon Cancer with metastasis to liver; Diabetes - NIDDM; Headaches; Hypertension; aa5 - PSHx: 09:52 tube placement; Heart Surgery; hip; aa5 - Immunization history:: Flu vaccine is up to date. - Social history:: Smoking status: Patient/guardian denies using tobacco. - Immunization history: Last tetanus immunization: - up to date. - Ebola Screening: : No symptoms or risks identified at this time. Screenin:56 Abuse screen: Denies threats or abuse. Denies injuries from another. Nutritional ls4 screening: No deficits noted. Tuberculosis screening: No symptoms or risk factors identified. Fall Risk None identified. Primary Survey: 10:00 NO uncontrolled hemorrhage observed. A: The patient is alert. Airway: patent. ls4 10:00 Breathing/Chest: Respiratory pattern: regular, Respiratory effort: spontaneous, ls4 unlabored, Breath sounds: diminished, bilaterally. Circulation: Skin color: pink, Skin temperature: warm. Disability Alert. Exposure/Environment: There is no evidence of uncontrolled external bleeding. Obvious injury(ies) are noted at this time: LEFT ARM. 11:00 Reassessment Airway Airway Patent Breathing/Chest Respiratory pattern Regular ls4 Respiratory effort Spontaneous Unlabored Breath sounds Diminished Circulation Pulses Palpable Color [place] Temperature Warm Dry Disability Alert. Vital Signs: 09:52 BP 124 / 69; Pulse 50; Resp 16 S; Temp 97.6(TE); Pulse Ox 97% on R/A; Weight 57.61 kg aa5 (R); Height 5 ft. 0 in. (152.40 cm) (R); Pain 8/10; 09:52 Body Mass Index 24.80 (57.61 kg, 152.40 cm) aa5 [place] Coma Score: 10:00 Eye Response: spontaneous(4). Verbal Response: oriented(5). Motor Response: obeys ls4 commands(6). Total: 15. Trauma Score (Adult): 10:00 Eye Response: spontaneous(1); Verbal Response: oriented(1); Motor Response: obeys ls4 commands(2); Systolic BP: > 89 mm Hg(4); Respiratory Rate: 10 to 29 per min(4); Nathalia Score: 15; Trauma Score: 12 ED Course: 09:44 Patient arrived in ED. ag5 09:44 Dayanara Lester is Private Physician. ag5 09:50 Triage completed. aa5 09:50 Mona Lagos FNP-C [facility]. kb 09:50 Katey Serrato MD is Attending Physician. kb 09:52 Arm band placed on. aa5 09:56 Marija Fuentes, MORENO is Primary Nurse. ls4 09:56 Patient has correct armband on for positive identification. Bed in low position. Call ls4 light in reach. Side rails up X 1. Pulse ox on. NIBP on. 10:00 Thermoregulation: warm blanket given to patient. ls4 11:00 Patient maintains SpO2 saturation greater than 95% on room air. ls4 11:00 No provider procedures requiring assistance completed. Patient did not have IV access ls4 during this emergency room visit. 11:25 Humerus Left XRAY In Process Unspecified. EDMS 11:25 Shoulder Left (2 View) XRAY In Process Unspecified. EDMS 11:25 X-ray completed. Portable x-ray completed in exam room. Patient tolerated procedure jb2 well. 12:00 Sling applied to left arm. ls4 Administered Medications: 12:30 Drug: traMADol 50 mg Route: PO; ls4 12:52 Follow up: Response: No adverse reaction; Marked relief of symptoms ls4 Intake: 10:00 PO: 0ml; Total: 0ml. ls4 Output: 10:00 Urine: 0ml; Total: 0ml. ls4 Outcome: 11:52 Discharge ordered by . jerardo 12:56 Patient left the ED. ls4 12:56 Discharged to home ambulatory, with family. ls4 12:56 Condition: stable 12:56 Patient's length of stay was not longer than 2 hours. 12:56 Discharge instructions given to patient, Instructed on discharge instructions, follow ls4 up and referral plans. medication usage, safety practices, Demonstrated understanding of instructions, follow-up care, SLING Signatures: Dispatcher [employer] EDDC Mona Lagos, [employer]-Roe Prajapati jb2 Rain Helton RN RN aa5 Marija Fuentes RN RN ls4 Dianne Noguera ag5 Corrections: (The following items were deleted from the chart) 15:58 15:57 Onset of symptoms ls4 ls4
--- NOTE | 2018-11-09 11:52 | EDPHYS ---
Physician Documentation [facility] Name: Maricel Guerrero Age: 78 yrs Sex: Female : 1940 Arrival Date: 11/09/2018 Time: 09:44 Bed 16 Private MD: Dayanara Lester ED Physician Katey Serrato HPI: 11/09 10:11 This 78 yrs old Female presents to ER via Wheelchair with complaints of Fall kb Injury. 10:11 Details of fall: The patient fell from an upright position, while walking, tripped over rock. Onset: The symptoms/episode began/occurred just prior to arrival. Associated injuries: The patient sustained left arm, decreased range of motion, painful injury. Severity of symptoms: At their worst the symptoms were moderate, in the emergency department the symptoms are unchanged. The patient has not experienced similar symptoms in the past. The patient has not recently seen a physician. Historical: - Allergies: 09:52 Iodine; aa5 - Home Meds: 09:52 albuterol INH [Active]; aspirin 81 mg Oral TbEC 1 tab once daily [Active]; atorvastatin aa5 20 mg Oral tab 1 tab once daily [Active]; Calcium Carbonate Oral 5000 mg daily [Active]; clopidogrel 75 mg Oral tab 1 tab once daily [Active]; donepezil 10 mg Oral tab 1 tab once daily [Active]; escitalopram oxalate 10 mg Oral tab 1 tab once daily [Active]; furosemide 20 mg Oral tab 1 tab once daily [Active]; Hemocyte-Plus 106 mg iron- 1 mg Oral cap 1 cap once daily [Active]; lisinopril 2.5 mg Oral tab 1 tab once daily [Active]; magnesium oxide 400 mg Oral cap daily [Active]; megestrol 40 mg Oral tab 1 tab 2 times per day [Active]; metformin 500 mg Oral tab 1 tab 2 times per day [Active]; metoprolol succinate XL 25 mg 1 tab daily daily [Active]; mirtazapine 30 mg Oral tab 1 tab once daily [Active]; multivitamin with minerals Oral tab daily [Active]; nicotine 21 mg/24 hr TD pt24 [Active]; nitroglycerin 0.4 mg Oral as needed [Active]; Zofran (as hydrochloride) 4 mg Oral tab every 8 hours [Active]; zolpidem 5 mg Oral tab 1 tab as needed [Active]; - PMHx: 09:52 AAA; Colon Cancer with metastasis to liver; Diabetes - NIDDM; Headaches; Hypertension; aa5 - PSHx: 09:52 tube placement; Heart Surgery; hip; aa5 - Immunization history:: Flu vaccine is up to date. - Social history:: Smoking status: Patient/guardian denies using tobacco. - Immunization history: Last tetanus immunization: - up to date. - Ebola Screening: : No symptoms or risks identified at this time. ROS: 10:09 Constitutional: Negative for fever, chills, and weight loss, ENT: Negative for injury, kb pain, and discharge, Neck: Negative for injury, pain, and swelling, Cardiovascular: Negative for chest pain, palpitations, and edema, Respiratory: Negative for shortness of breath, cough, wheezing, and pleuritic chest pain, Abdomen/GI: Negative for abdominal pain, nausea, vomiting, diarrhea, and constipation, Skin: Negative for injury, rash, and discoloration, Neuro: Negative for headache, weakness, numbness, tingling, and seizure. 10:09 MS/extremity: Positive for injury or acute deformity, decreased range of motion, pain, tenderness, of the anterior aspect of left shoulder. Exam: 10:09 Constitutional: This is a well developed, well nourished patient who is awake, alert, kb and in no acute distress. Head/Face: Normocephalic, atraumatic. ENT: Nares patent. No nasal discharge, no septal abnormalities noted. Tympanic membranes are normal and external auditory canals are clear. Oropharynx with no redness, swelling, or masses, exudates, or evidence of obstruction, uvula midline. Mucous membranes moist. Neck: Trachea midline, no thyromegaly or masses palpated, and no cervical lymphadenopathy. Supple, full range of motion without nuchal rigidity, or vertebral point tenderness. No Meningismus. Chest/axilla: Normal chest wall appearance and motion. Nontender with no deformity. No lesions are appreciated. Cardiovascular: Regular rate and rhythm with a normal S1 and S2. No gallops, murmurs, or rubs. Normal PMI, no JVD. No pulse deficits. Respiratory: Lungs have equal breath sounds bilaterally, clear to auscultation and percussion. No rales, rhonchi or wheezes noted. No increased work of breathing, no retractions or nasal flaring. Abdomen/GI: Soft, non-tender, with normal bowel sounds. No distension or tympany. No guarding or rebound. No evidence of tenderness throughout. Back: No spinal tenderness. No costovertebral tenderness. Full range of motion. Skin: Warm, dry with normal turgor. Normal color with no rashes, no lesions, and no evidence of cellulitis. Neuro: Awake and alert, GCS 15, oriented to person, place, time, and situation. Cranial nerves II-XII grossly intact. Motor strength 5/5 in all extremities. Sensory grossly intact. Cerebellar exam normal. Normal gait. 10:09 Musculoskeletal/extremity: Extremities: grossly normal except: noted in the anterior aspect of left shoulder: decreased ROM, pain, tenderness, ROM: limited active range of motion due to pain, in the anterior aspect of left shoulder, Circulation is intact in all extremities. Sensation intact. Vital Signs: 09:52 BP 124 / 69; Pulse 50; Resp 16 S; Temp 97.6(TE); Pulse Ox 97% on R/A; Weight 57.61 kg aa5 (R); Height 5 ft. 0 in. (152.40 cm) (R); Pain 8/10; 09:52 Body Mass Index 24.80 (57.61 kg, 152.40 cm) aa5 Nathalia Coma Score: 10:00 Eye Response: spontaneous(4). Verbal Response: oriented(5). Motor Response: obeys ls4 commands(6). Total: 15. Trauma Score (Adult): 10:00 Eye Response: spontaneous(1); Verbal Response: oriented(1); Motor Response: obeys ls4 commands(2); Systolic BP: > 89 mm Hg(4); Respiratory Rate: 10 to 29 per min(4); Nathalia Score: 15; Trauma Score: 12 MDM: 09:54 Patient medically screened. kb 10:09 Data reviewed: vital signs, nurses notes. Data interpreted: Pulse oximetry: on room air kb is 97 %. Interpretation: normal. 11:37 Counseling: I had a detailed discussion with the patient and/or guardian regarding: the kb historical points, exam findings, and any diagnostic results supporting the discharge/admit diagnosis, radiology results, the need for outpatient follow up, a orthopedic surgeon, to return to the emergency department if symptoms worsen or persist or if there are any questions or concerns that arise at home. 11/09 09:57 Order name: Humerus Left XRAY; Complete Time: 11:35 kb 11/09 09:57 Order name: Shoulder Left (2 View) XRAY kb 11/09 11:37 Order name: Sling; Complete Time: 12:15 kb Administered Medications: 12:30 Drug: traMADol 50 mg Route: PO; ls4 12:52 Follow up: Response: No adverse reaction; Marked relief of symptoms ls4 Disposition: 15:03 Co-signature as Attending Physician, Katey Serrato MD. ma2 Disposition: 11/09/18 11:52 Discharged to Home. Impression: Displaced comminuted fracture of shaft of humerus, left arm. - Condition is Stable. - Discharge Instructions: Humerus Fracture Treated With Immobilization, [id number]. - Prescriptions for Tramadol 50 mg Oral Tablet - take 1 tablet by ORAL route every 8 hours as needed; 12 tablet. - Medication Reconciliation Form, Thank You Letter, Antibiotic Education, Prescription Opioid Use, SBAR form form. - Follow up: Emergency Department; When: As needed; Reason: Worsening of condition. Follow up: Private Physician; When: 2 - 3 days; Reason: Recheck today's complaints, Continuance of care, Re-evaluation by your physician. Signatures: Dispatcher [employer] EDMS Mona Lagos, CLINICAL STUDIES SPECIALIST-C CLINICAL STUDIES SPECIALIST-Rain Carcamo, RN RN aa5 Katey Serrato MD MD ma2 Marija Fuentes RN RN ls4 Corrections: (The following items were deleted from the chart) 12:56 11:52 11/09/2018 11:52 Discharged to Home. Impression: Displaced comminuted fracture of ls4 shaft of humerus, left arm. Condition is Stable. Discharge Instructions: Humerus Fracture Treated With Immobilization, [id number]. Prescriptions for Tramadol 50 mg Oral Tablet - take 1 tablet by ORAL route every 8 hours as needed; 12 tablet. and Forms are Medication Reconciliation Form, Thank You Letter, Antibiotic Education, Prescription Opioid Use. Follow up: Emergency Department; When: As needed; Reason: Worsening of condition. Follow up: Private Physician; When: 2 - 3 days; Reason: Recheck today's complaints, Continuance of care, Re-evaluation by your physician. kb
[2018-11-09] MEDS ORDERED: TRAMADOL HCL 50 MG TAB ONE (12:31)
[2018-11-09 13:03] VITALS: BP 124/69; TEMP 97.6; O2SAT 97
--- NOTE | 2018-11-09 14:56 | RAD REPORT ---
EXAM DESCRIPTION: RAD - Shoulder Left 2 View - 11/09/2018 11:26 am CLINICAL HISTORY: PAIN Fall, pain to shoulder COMPARISON: None FINDINGS: Left shoulder, two views and left humerus, two views are submitted Comminuted fracture of the proximal left humerus is noted. The bones are demineralized. No dislocatio n is evident.
== END 2018-11-09 12:56 | disposition home or self-care (01) ==
LOC: ER 09:43
DX: S42.352A Displaced comminuted fracture of shaft of humerus, left arm, initial encounter for closed fracture (principal); W01.0XXA Fall on same level from slipping, tripping and stumbling without subsequent striking against object, initial encounter; Y93.01 Activity, walking, marching and hiking; C18.9 Malignant neoplasm of colon, unspecified; C78.7 Secondary malignant neoplasm of liver and intrahepatic bile duct; E11.9 Type 2 diabetes mellitus without complications; I10 Essential (primary) hypertension; Z79.84 Long term (current) use of oral hypoglycemic drugs; Z79.82 Long term (current) use of aspirin; Z88.8 Allergy status to other drugs, medicaments and biological substances
CPT/HCPCS: 99284

== ENCOUNTER 2019-06-04 11:02 | Inpatient (IN) | payer OTHER ==
[2019-06-04] MEDS ORDERED: NA CHLORIDE 0.9% 500 ML ONE ×3 (11:20→14:17)
[2019-06-04 11:45] LABS: Absolute Lymphocytes (CBC) 0.2 K/uL (0.7-4.9); Basophils % 0.3 % (0-1.3); Hematocrit 39.7 % (36.0-45.0); Lymphocytes % 0.7 % (15.3-44.8); MPV 11.1 fL (7.6-11.3); RBC Red Blood Cell Count 4.12 M/uL (3.86-4.86)
--- NOTE | 2019-06-04 11:53 | RAD REPORT ---
EXAM DESCRIPTION: CT - Abdomen Pelvis Wo Contrast - 06/04/2019 11:39 am CLINICAL HISTORY: diarrhea, weakness, hx of colitis COMPARISON: Abdomen Pelvis Wo Contrast dated . TECHNIQUE: Axial [address] imaging of the abdomen and pelvis was performed without IV contrast. No IV contrast was given because of allergy, abnormal renal function, patient refusal or physician re quest. No oral contrast given. All CT scans are performed using dose optimization technique as appropriate and may include automated exposure control or mA/KV adjustment according to patient size. FINDINGS: No suspicious findings in the lung bases. Liver size is normal. No focal liver lesions seen on noncontrast imaging. No spleen or pancreatic kathia picious finding. Granulomatous calcifications noted in the spleen. Gallbladder and biliary tree are a lso without suspicious finding. Gallstones can be occult on CT imaging. No suspicion for active gallb ladder process. No hydronephrosis or suspicious renal mass. No significant adrenal finding. Isodense renal masses an d pyelonephritis cannot be excluded in the absence of IV contrast. No adrenal abnormalities. No gross bladder abnormality seen. Pelvic floor laxity is present. Pelvic floor assessment is limited due to dense spray artifact from the right hip prosthesis. Stomach is dilated with food, fluid and prominent air. No gastric wall thickening or mass identifiabl e. Gastric or duodenal mass as an outlet obstruction not suspected. No dilated large or small bowel s een. Patient does have prominent sigmoid diverticulosis. Acute diverticulitis is not seen. There are significant portions of the rectum and sigmoid colon that have limited visualization due to spray art ifact. No free air, free fluid or inflammatory stranding. No hernia, mass or bulky lymphadenopathy. Disc and bony degenerative changes are present. No acute bone process seen. Infrarenal abdominal aortic aneurysm is present 3.7 centimeter AP by 3.6 centimeter TR. Prominent ana cifications are present. No centrally displaced calcifications. No periaortic fluid or mass. Aorta is not clearly different from prior imaging. Dense iliac calcifications are present. Assessment is limi jacinda in the absence of contrast. IMPRESSION: Stomach is dilated containing food, fluid and air. No mass, wall thickening or other alise dence of gastric outlet obstruction. This may be gastroparesis secondary to an underlying enteritis. No acute large or small bowel finding. The patient does have prominent sigmoid diverticulosis. Divert iculitis cannot be confirmed ; however, there are portions of the sigmoid colon and rectum there are obscured due to right hip prosthesis spray artifact. No free air, free fluid or other evidence for a surgically emergent finding. Infrarenal abdominal aortic aneurysm measuring 3.7 cm stable from January 2019. Full assessment is limited is the absence of IV contrast.
[2019-06-04 12:35] LABS: Albumin 3.9 g/dL (3.4-5.0); Bilirubin Direct 0.2 mg/dL (0-0.2); Bilirubin Total 0.4 mg/dL (0.2-1.0); Protein, Total 7.5 g/dL (6.4-8.2)
[2019-06-04 12:36] LABS: Potassium 5.7 mmol/L (3.5-5.1)
--- NOTE | 2019-06-04 13:38 | ER ---
Nurse's Notes [facility] Name: Maricel Guerrero Age: 79 yrs Sex: Female : 1940 Arrival Date: 06/04/2019 Time: 11:07 Bed 20 Private MD: Diagnosis: Dehydration;Acute kidney failure;Acidosis;Weakness Presentation: 06/04 11:08 Presenting complaint: EMS states: Generalized weakness x 1 week, vomit x 1 last night. hb Transition of care: patient was not received from another setting of care. Onset of symptoms was May 28, 2019. Risk Assessment: Do you want to hurt yourself or someone else? Patient reports no desire to harm self or others. Initial Sepsis Screen: Does the patient meet any 2 criteria? No. Patient's initial sepsis screen is negative. Does the patient have a suspected source of infection? No. Patient's initial sepsis screen is negative. Care prior to arrival: Glucose check: 199 Oxygen administered. via nasal cannula. 11:08 Method Of Arrival: EMS: [facility] hb 11:08 Acuity: WILL 3 hb Historical: - Allergies: 11:12 Iodine; hb - Home Meds: 11:15 aspirin 81 mg Oral TbEC 1 tab once daily [Active]; donepezil 10 mg Oral tab 1 tab once hb daily [Active]; clopidogrel 75 mg Oral tab 1 tab once daily [Active]; escitalopram oxalate 10 mg Oral tab 1 tab once daily [Active]; Hemocyte-Plus 106 mg iron- 1 mg Oral cap 1 cap once daily [Active]; magnesium oxide 400 mg Oral cap daily [Active]; metformin 500 mg Oral tab 1 tab 2 times per day [Active]; metoprolol succinate XL 25 mg 1 tab daily daily [Active]; multivitamin with minerals Oral tab daily [Active]; nicotine 21 mg/24 hr TD pt24 [Active]; nitroglycerin 0.4 mg Oral as needed [Active]; Zofran (as hydrochloride) 4 mg Oral tab every 8 hours [Active]; 12:26 atorvastatin 40 mg oral tab [Active]; megestrol 40 mg Oral tab 1 tab [Active]; zolpidem jl7 10 mg oral tab [Active]; Laona 10-325 mg Oral tab 1 tab every 6 hours [Active]; Lialda 1.2 gram oral TbEC [Active]; memantine 10 mg oral tab [Active]; megestrol 20 mg Oral tab 1 tab 2 times per day [Active]; ProAir HFA 90 mcg/actuation inhalation HFAA [Active]; Synthroid 25 mcg Oral tab 1 tab once daily [Active]; tramadol 50 mg Oral tab [Active]; Vitamin D3 5,000 unit oral tab [Active]; - PMHx: 11:12 Diabetes - NIDDM; Hypertension; Colon Cancer with metastasis to liver; Headaches; AAA; hb 12:26 Hypothyroidism; jl7 - PSHx: 11:12 tube placement; Heart Surgery; hip; hb - Immunization history:: Adult Immunizations up to date. - Social history:: Smoking status: Patient/guardian denies using tobacco. - Ebola Screening: : No symptoms or risks identified at this time. - Family history:: not pertinent. - Hospitalizations: : No recent hospitalization is reported. Screenin:12 Abuse screen: Denies threats or abuse. Denies injuries from another. Nutritional hb screening: No deficits noted. Tuberculosis screening: No symptoms or risk factors identified. Fall Risk Total Welch Fall Scale indicates Low Risk Score (25-44 pts). Fall prevention measures have been instituted. Side Rails Up X 2 Frequent Obs/Assesments occuring Family Present and informed to notify staff if they need to leave bedside As available Patient and Family Educated on Fall Prevention Program and strategies. Assessment: 11:15 General: Appears in no apparent distress. Behavior is calm, cooperative. Pain: hb Complains of pain in neck Pain currently is 4 out of 10 on a pain scale. Is chronic. Neuro: Level of Consciousness is awake, alert, obeys commands, Oriented to person, place, time, situation. Cardiovascular: Capillary refill < 3 seconds Patient's skin is warm and dry. Respiratory: Airway is patent Respiratory effort is even, unlabored, Respiratory pattern is regular, symmetrical, Breath sounds are clear bilaterally. GI: No signs and/or symptoms were reported involving the gastrointestinal system. : No signs and/or symptoms were reported regarding the genitourinary system. EENT: No signs and/or symptoms were reported regarding the EENT system. Derm: Skin is pink, warm \T\ dry. Musculoskeletal: No signs and/or symptoms reported regarding the musculoskeletal system. 12:15 Reassessment: Patient appears in no apparent distress at this time. Patient and/or hb family updated on plan of care and expected duration. Pain level reassessed. Patient is alert, oriented x 3, equal unlabored respirations, skin warm/dry/pink. 13:35 Reassessment: Patient appears in no apparent distress at this time. Patient and/or hb family updated on plan of care and expected duration. Pain level reassessed. Patient is alert, oriented x 3, equal unlabored respirations, skin warm/dry/pink. Vital Signs: 11:07 BP 129 / 101; Pulse 84; Resp 16; Temp 97.7; Pulse Ox 99% on R/A; Weight 44 kg; Height 5 hb ft. 2 in. (157.48 cm); Pain 4/10; 12:39 BP 110 / 59; Pulse 75; Resp 16; Pulse Ox 100% on R/A; mt 13:34 BP 101 / 54; Pulse 72; Resp 15; Pulse Ox 100% on R/A; hb 14:18 BP 90 / 53; Pulse 77; Resp 15; Pulse Ox 99% on R/A; hb 15:28 BP 102 / 56; Pulse 82; Resp 16; Temp 97.4; Pulse Ox 100% on R/A; hb 11:07 Body Mass Index 17.74 (44.00 kg, 157.48 cm) hb ED Course: 11:07 Patient arrived in ED. hb 11:09 Yasmani Perez MD is Attending Physician. rn 11:09 Triage completed. hb 11:12 Arm band placed on. hb 11:30 Patient has correct armband on for positive identification. Bed in low position. Call hb light in reach. Side rails up X2. 11:32 Missed attempt(s): 22 gauge hand. antecubital area. Bleeding controlled, band aid hb applied, catheter tip intact. 11:36 Inserted saline lock: 24 gauge in right forearm, using aseptic technique. Blood hb collected. 11:37 Christine Guallpa, MORENO is Primary Nurse. hb 11:38 EKG done, by imaging technician. reviewed by Yasmani Perez MD. at1 11:40 CT Abd/Pelvis - Without Contrast In Process Unspecified. EDMS 13:37 Tho Richter MD is Hospitalizing Provider. rn 16:05 No provider procedures requiring assistance completed. Patient admitted, IV remains in hb place. Administered Medications: 11:37 Drug: NS 0.9% 500 ml Route: IV; Rate: bolus; Site: right forearm; hb 12:10 Follow up: IV Status: Completed infusion; IV Intake: 500ml hb 12:22 Drug: NS 0.9% 500 ml Route: IV; Rate: bolus; Site: right forearm; hb 12:59 Follow up: IV Status: Completed infusion; IV Intake: 500ml hb 14:18 Drug: NS 0.9% 500 ml Route: IV; Rate: bolus; Site: right forearm; hb 14:59 Follow up: IV Status: Completed infusion; IV Intake: 500ml hb Intake: 12:10 IV: 500ml; Total: 500ml. hb 12:59 IV: 500ml; Total: 1000ml. hb 14:59 IV: 500ml; Total: 1500ml. hb Outcome: 13:37 Decision to Hospitalize by Provider. rn 16:05 Admitted to Tele accompanied by tech, family with patient, via stretcher, room 413, hb Report called to Tyler RN 16:05 Condition: stable 16:05 Instructed on the need for admit, Demonstrated understanding of instructions. 16:20 Patient left the ED. Signatures: Dispatcher [employer] EDMS Yasmani Perez MD MD rn Gonzales, Amanda, general production manager EKG Tat1 Christine Guallpa RN RN hb Leal, Jahala, RN RN jl7 Thompson, [place] Corrections: (The following items were deleted from the chart) 12: 11:15 Home Meds: albuterol INH; jl7 12: 11:15 Home Meds: atorvastatin 20 mg Oral tab 1 tab once daily; jl7 12: 11:15 Home Meds: Calcium Carbonate Oral 5000 mg daily; jl7 12:28 11:15 Home Meds: furosemide 20 mg Oral tab 1 tab once daily; jl7 12:28 11:15 Home Meds: lisinopril 2.5 mg Oral tab 1 tab once daily; jl7 12: 11:15 Home Meds: megestrol 40 mg Oral tab 1 tab 2 times per day; jl7 12: 11:15 Home Meds: mirtazapine 30 mg Oral tab 1 tab once daily; jl7 12: 11:15 Home Meds: zolpidem 5 mg Oral tab 1 tab as needed; jl7 16:08 15:28 BP 103 / 44; hb hb
--- NOTE | 2019-06-04 13:38 | EDPHYS ---
Physician Documentation [facility] Name: Maricel Guerrero Age: 79 yrs Sex: Female : 1940 Arrival Date: 06/04/2019 Time: 11:07 Bed 20 Private MD: ED Physician Yasmani Perez HPI: 06/04 11:16 This 79 yrs old Female presents to ER via EMS with complaints of General rn Weakness. 11:16 Reports generalized weakness for 1 week, + chronic diarrhea, non-bloody, + hx of rn colitis, denies fever/chills/cough/chest pain/sob. Denies abd pain. Family reports only drinks 1 dr pepper a day. . Onset: The symptoms/episode began/occurred 1 week(s) ago. Severity of symptoms: At their worst the symptoms were mild in the emergency department the symptoms are unchanged. The patient has experienced similar episodes in the past. The patient has not recently seen a physician. Historical: - Allergies: 11:12 Iodine; hb - Home Meds: 11:15 aspirin 81 mg Oral TbEC 1 tab once daily [Active]; donepezil 10 mg Oral tab 1 tab once hb daily [Active]; clopidogrel 75 mg Oral tab 1 tab once daily [Active]; escitalopram oxalate 10 mg Oral tab 1 tab once daily [Active]; Hemocyte-Plus 106 mg iron- 1 mg Oral cap 1 cap once daily [Active]; magnesium oxide 400 mg Oral cap daily [Active]; metformin 500 mg Oral tab 1 tab 2 times per day [Active]; metoprolol succinate XL 25 mg 1 tab daily daily [Active]; multivitamin with minerals Oral tab daily [Active]; nicotine 21 mg/24 hr TD pt24 [Active]; nitroglycerin 0.4 mg Oral as needed [Active]; Zofran (as hydrochloride) 4 mg Oral tab every 8 hours [Active]; 12:26 atorvastatin 40 mg oral tab [Active]; megestrol 40 mg Oral tab 1 tab [Active]; zolpidem jl7 10 mg oral tab [Active]; [place] 10-325 mg Oral tab 1 tab every 6 hours [Active]; Lialda 1.2 gram oral TbEC [Active]; memantine 10 mg oral tab [Active]; megestrol 20 mg Oral tab 1 tab 2 times per day [Active]; ProAir HFA 90 mcg/actuation inhalation HFAA [Active]; Synthroid 25 mcg Oral tab 1 tab once daily [Active]; tramadol 50 mg Oral tab [Active]; Vitamin D3 5,000 unit oral tab [Active]; - PMHx: 11:12 Diabetes - NIDDM; Hypertension; Colon Cancer with metastasis to liver; Headaches; AAA; hb 12:26 Hypothyroidism; jl7 - PSHx: 11:12 tube placement; Heart Surgery; hip; hb - Immunization history:: Adult Immunizations up to date. - Social history:: Smoking status: Patient/guardian denies using tobacco. - Ebola Screening: : No symptoms or risks identified at this time. - Family history:: not pertinent. - Hospitalizations: : No recent hospitalization is reported. ROS: 11:16 Constitutional: Negative for fever, chills Eyes: Negative for injury, pain, redness, rn and discharge, Neck: Negative for injury, pain, and swelling, Cardiovascular: Negative for chest pain, palpitations, and edema, Respiratory: Negative for shortness of breath, cough, wheezing, and pleuritic chest pain, Abdomen/GI: Negative for abdominal pain, nausea, vomiting, and constipation, MS/Extremity: Negative for injury and deformity, Skin: Negative for injury, rash, and discoloration, Neuro: Negative for headache, numbness, tingling, and seizure. Exam: 11:16 Constitutional: Thin female, no acute distress Head/Face: Normocephalic, atraumatic. rn Eyes: Pupils equal round and reactive to light, extra-ocular motions intact. Lids and lashes normal. Conjunctiva and sclera are non-icteric and not injected. Cornea within normal limits. Periorbital areas with no swelling, redness, or edema. ENT: dry MM Cardiovascular: Regular rate and rhythm. No pulse deficits. Respiratory: No increased work of breathing, no retractions or nasal flaring. Abdomen/GI: soft, non-tender MS/ Extremity: Pulses equal, no cyanosis. Neurovascular intact. Full, normal range of motion. Equal circumference. Neuro: Awake and alert, GCS 15, oriented to person, place, time, and situation. Cranial nerves II-XII grossly intact. Motor strength 4/5 in all extremities. Sensory grossly intact. Cerebellar exam normal. 11:33 ECG was reviewed by the Attending Physician. rn Vital Signs: 11:07 BP 129 / 101; Pulse 84; Resp 16; Temp 97.7; Pulse Ox 99% on R/A; Weight 44 kg; Height 5 hb ft. 2 in. (157.48 cm); Pain 4/10; 12:39 BP 110 / 59; Pulse 75; Resp 16; Pulse Ox 100% on R/A; mt 13:34 BP 101 / 54; Pulse 72; Resp 15; Pulse Ox 100% on R/A; hb 14:18 BP 90 / 53; Pulse 77; Resp 15; Pulse Ox 99% on R/A; hb 15:28 BP 102 / 56; Pulse 82; Resp 16; Temp 97.4; Pulse Ox 100% on R/A; hb 11:07 Body Mass Index 17.74 (44.00 kg, 157.48 cm) hb MDM: 11:09 Patient medically screened. rn 13:36 Differential Diagnosis dehydration, acidosis, diarrhea. Data reviewed: vital signs, rn nurses notes, lab test result(s), radiologic studies, CT scan, and as a result, I will admit patient. Counseling: I had a detailed discussion with the patient and/or guardian regarding: the historical points, exam findings, and any diagnostic results supporting the discharge/admit diagnosis, lab results, radiology results, the need for further work-up and treatment in the hospital. Response to treatment: the patient's symptoms have mildly improved after treatment, and as a result, I will admit patient. Admission orders: after a detailed discussion of the patient's condition and case, the admit orders are written by me. ED course: Pt with moderate to severe dehydration, acidosis, neg ct abdomen, likely all from acute on chronic diarrhea. Admitted to Dr. Richter. . 06/04 11:16 Order name: Basic Metabolic Panel; Complete Time: 13:24 rn 06/04 11:16 Order name: CBC with Diff rn 06/04 11:16 Order name: Hepatic Function; Complete Time: 13:24 rn 06/04 11:16 Order name: Lipase; Complete Time: 13:24 rn 06/04 11:16 Order name: Urine Microscopic Only rn 06/04 13:46 Order name: Manual Differential EDMS 06/04 11:16 Order name: IV Saline Lock; Complete Time: 11:38 rn 06/04 11:16 Order name: Labs collected and sent; Complete Time: 11:38 rn 06/04 11:16 Order name: CT Abd/Pelvis - Without Contrast; Complete Time: 11:59 rn 06/04 11:16 Order name: EKG; Complete Time: 11:17 rn 06/04 11:16 Order name: EKG - Nurse/Tech; Complete Time: 11:38 rn EC:33 Rate is 76 beats/min. Rhythm is regular. QRS Gunpowder is Normal. AL interval is shortened rn at 98 msec. QRS interval is normal. QT interval is normal. No Q waves. T waves are Normal. No ST changes noted. Clinical impression: NSR w/ Non-specific ST/T Changes. Interpreted by me. Reviewed by me. Administered Medications: 11:37 Drug: NS 0.9% 500 ml Route: IV; Rate: bolus; Site: right forearm; hb 12:10 Follow up: IV Status: Completed infusion; IV Intake: 500ml hb 12:22 Drug: NS 0.9% 500 ml Route: IV; Rate: bolus; Site: right forearm; hb 12:59 Follow up: IV Status: Completed infusion; IV Intake: 500ml hb 14:18 Drug: NS 0.9% 500 ml Route: IV; Rate: bolus; Site: right forearm; hb 14:59 Follow up: IV Status: Completed infusion; IV Intake: 500ml hb Disposition: 06/04/19 13:37 Hospitalization ordered by Tho Richter for Inpatient Admission. Preliminary diagnosis are Dehydration, Acute kidney failure, Acidosis, Weakness. - Bed requested for Telemetry/MedSurg (Inpatient). - Status is Inpatient Admission. hb - Condition is Stable. - Problem is new. - Symptoms have improved. UTI on Admission? No Signatures: Dispatcher [employer] EDWA Chanelle Benitez RN RN Yasmani Perez MD MD rn Baxter, Heather, RN RN hb Leal, Jahala, RN RN jl7 Corrections: (The following items were deleted from the chart) 12: 11:15 Home Meds: albuterol INH; jl7 12:28 11:15 Home Meds: atorvastatin 20 mg Oral tab 1 tab once daily; hb jl7 12:28 11:15 Home Meds: Calcium Carbonate Oral 5000 mg daily; hb jl7 12:28 11:15 Home Meds: furosemide 20 mg Oral tab 1 tab once daily; hb jl7 : 11:15 Home Meds: lisinopril 2.5 mg Oral tab 1 tab once daily; hb jl7 : 11:15 Home Meds: megestrol 40 mg Oral tab 1 tab 2 times per day; hb jl7 : 11:15 Home Meds: mirtazapine 30 mg Oral tab 1 tab once daily; hb jl7 : 11:15 Home Meds: zolpidem 5 mg Oral tab 1 tab as needed; jl7 15:27 13:37 Hospitalization Ordered by Tho Richter MD for Inpatient Admission. Preliminary dw diagnosis is Dehydration; Acute kidney failure; Acidosis; Weakness. Bed requested for Telemetry/MedSurg (Inpatient). Status is Inpatient Admission. Condition is Stable. Problem is new. Symptoms have improved. UTI on Admission? No. rn 15:47 15:27 06/04/2019 13:37 Hospitalization Ordered by Tho Richter MD for Inpatient dw Admission. Preliminary diagnosis is Dehydration; Acute kidney failure; Acidosis; Weakness. Bed requested for Telemetry/MedSurg (Inpatient). Status is Inpatient Admission. Condition is Stable. Problem is new. Symptoms have improved. UTI on Admission? No. dw 16:20 15:47 06/04/2019 13:37 Hospitalization Ordered by Tho Richter MD for Inpatient hb Admission. Preliminary diagnosis is Dehydration; Acute kidney failure; Acidosis; Weakness. Bed requested for Telemetry/MedSurg (Inpatient). Status is Inpatient Admission. Condition is Stable. Problem is new. Symptoms have improved. UTI on Admission? No. dw
[2019-06-04 13:45] LABS: Anisocytosis 1+; Blood Morphology Comment NOTED (NOT SEEN); Platelet Estimate ADEQ
--- NOTE | 2019-06-04 15:31 | EKG ---
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
[2019-06-04] MEDS ORDERED: ONDANSETRON 4 MG/2 ML VIAL IV PRN (16:42)
--- NOTE | 2019-06-04 16:46 | P.HP ---
Certification for Inpatient Patient admitted to: Inpatient Practitioner: I am a practitioner with admitting privileges, knowledge of patient current condition, hospital course, and medical plan of care. Services: Services provided to patient in accordance with Admission requirements found in Title 42 Section 412.3 of the Code of Federal Regulations Patient History Date of Service: 06/04/19 Reason for admission: Dehydration, nausea/vomiting History of Present Illness: This is a 79-year-old female with past medical history of diabetes, hypertension , Alzheimer's dementia and coronary artery disease who presented to the ER with complaints of nausea/vomiting for the past couple of days. Per patient and family at bedside, she had nausea and vomiting the past couple of days, did not get better. He also states that she does not really drink any water oral liquids except for 1 Dr. per per day. She also has a history of chronic diarrhea. States that she has about 2-3 bowel movements a day that are watery nonbloody. This has been the norm for her for a few years now. She was generally not feeling well and along with the nausea vomiting therefore she came to the emergency room. In the ER, blood pressure was 129/101, heart rate of 84, respirations 16, afebrile at 97.9, satting 99% on room air and BMI of 17.34. Her labs were remarkable for potassium elevated at 5.7, chloride elevated at 115, CO2 low at 16 and creatinine elevated at 2.38. CT of the abdomen was negative for any acute abnormalities. She received 3 L fluid bolus in the ER. At the time of my exam, she is alert oriented x3, in no acute distress. And hemodynamically stable. Allergies iodine Allergy (Verified 08/04/17 08:06) Hives Home medications list reviewed: Yes Home Medications: Albuterol Inhaler [Ventolin Inhaler*] 1 puff IH PRN PRN 05/21/17 Atorvastatin Calcium 40 mg PO DAILY 05/21/17 Calcium Carb & Citrate/Vit D3 [Citracal + D ER Tablet] 1 tab PO DAILY 05/21/17 Donepezil HCl 10 mg PO BEDTIME 05/21/17 Folic Acid 1 tab PO DAILY 05/21/17 Metoprolol Succinate [Toprol Xl*] 12.5 mg PO DAILY 05/21/17 Nitroglycerin 1 tab SL PRN PRN 05/21/17 Famotidine [Pepcid*] 20 mg PO BID 06/23/17 Furosemide [Lasix*] 20 mg PO DAILYPRN PRN 06/23/17 Lisinopril [Zestril] 2.5 mg PO DAILY 06/23/17 Metformin HCl 1,000 mg PO BID 06/23/17 Vitamin B Complex [Vitamin B Complex*] 1 cap PO DAILY 06/23/17 Ondansetron HCl [Zofran] 4 mg PO Q6H PRN #20 tablet 07/01/17 Mirtazapine [Remeron*] 15 mg PO BEDTIME 07/28/17 Aspirin [Aspirin EC 81 MG] 81 mg PO DAILY #30 tablet. 07/31/17 Clopidogrel Bisulfate [Plavix*] 75 mg PO DAILY #30 tablet 07/31/17 Ferrous Sulfate [Ferrous Sulfate*] 325 mg PO DAILY #30 tab 08/11/17 Iron/FA/Vit B-Com W/C [Hemocyte Plus*] 1 tab PO DAILY WITH BREAKFAST #30 tab 12/23 Magnesium Oxide [Mag 0X*] 400 mg PO BID #60 tab 08/11/17 Megestrol [Megace*] 40 mg PO DAILY #30 tab 08/11/17 traMADol HCL [Ultram*] 50 mg PO Q6H PRN #60 tab 08/11/17 - Past Medical/Surgical History Diabetic: Yes -: Diabetes mellitus type 2 -: Hypertension -: Coronary artery disease -: Hyperlipidemia -: GERD -: Tobacco abuse -: COPD -: History of AAA repair -: headaches -: DM -: AAA repair -: Hysterectomy -: Appendectomy -: CABG -: double bypass -: Right hip ORIF Psychosocial/ Personal History: The patient is a . She has 3 children. - Family History Father -: Cancer Mother -: Cancer Notes: COLON CANCER - Social History Alcohol use: No CD- Drugs: No Caffeine use: Yes Review of Systems 10-point ROS is otherwise unremarkable Physical Examination - Vital Signs Temperature: 97.4 F Blood Pressure: 102/56 Pulse: 82 Respirations: 16 - Physical Exam General: Alert, In no apparent distress, Oriented x3, Cachectic HEENT: Atraumatic, PERRLA, Mucous membr. moist/pink, EOMI, Sclerae nonicteric Neck: Supple, 2+ carotid pulse no bruit, No LAD, Without JVD or thyroid abnormality Respiratory: Clear to auscultation bilaterally, Normal air movement Cardiovascular: Regular rate/rhythm, Normal S1 S2 Gastrointestinal: Normal bowel sounds, No tenderness Musculoskeletal: No tenderness Integumentary: No rashes Neurological: Normal gait, Normal speech, Normal strength at 5/5 x4 extr, Normal tone, Normal affect Lymphatics: No axilla or inguinal lymphadenopathy - Studies Laboratory Data (last 24 hrs) 06/04/19 11:36: WBC 29.5 H*, Hgb 12.9, Hct 39.7, Plt Count 194 06/04/19 11:36: Sodium 142, Potassium 5.7 H*, BUN 38 H, Creatinine 2.38 H, Glucose 195 H, Total Bilirubin 0.4, AST 20, ALT 16, Alkaline Phosphatase 103, Lipase 113 Assessment and Plan - Problems (Diagnosis) (1) Dehydration Current Visit: Yes Status: Acute (2) Acute kidney injury Current Visit: Yes Status: Acute Plan: Likely pre renal due to decreased intake along with chronic diarrhea. -continue IV fluids, maintenance dose. -monitor labs -will hold Lasix or other diuretics at this time -Will restart home medications as tolerated -will consult nephrology if no improvement. (3) Acidosis Current Visit: Yes Status: Acute Plan: Continue to monitor via labs after IV fluid administration. (4) Chronic diarrhea Current Visit: Yes Status: Acute (5) CAD (coronary artery disease) Onset Date: 05/22/17 Current Visit: No Status: Chronic Qualifiers: Coronary Disease-Associated Artery/Lesion type: bypass graft [place] vs. transplanted heart: [place] heart Associated angina: without angina Qualified Code(s): I25.810 - Atherosclerosis of coronary artery bypass graft(s) without angina pectoris (6) COPD (chronic obstructive pulmonary disease) Onset Date: 05/22/17 Current Visit: No Status: Chronic Qualifiers: COPD type: chronic bronchitis Chronic bronchitis type: unspecified Qualified Code(s): J42 - Unspecified chronic bronchitis (7) Diabetes mellitus Onset Date: 05/22/17 Current Visit: No Status: Chronic Qualifiers: Diabetes mellitus type: type 2 Diabetes mellitus residential insulin use: without salvage determiner use Diabetes mellitus complication status: with hyperglycemia Qualified Code(s): E11.65 - Type 2 diabetes mellitus with hyperglycemia (8) GERD (gastroesophageal reflux disease) Onset Date: 05/22/17 Current Visit: No Status: Chronic Qualifiers: Esophagitis presence: esophagitis presence not specified Qualified Code(s) : K21.9 - Gastro-esophageal reflux disease without esophagitis (9) Hyperlipidemia Onset Date: 05/22/17 Current Visit: No Status: Chronic Qualifiers: Hyperlipidemia type: unspecified Qualified Code(s): E78.5 - Hyperlipidemia , unspecified (10) Hypertension Onset Date: 05/22/17 Current Visit: No Status: Chronic Qualifiers: Hypertension type: essential hypertension (11) Nicotine dependence Current Visit: No Status: Chronic Plan: Counseled Qualifiers: Nicotine product type: cigarettes Substance use status: uncomplicated Qualified Code(s): F17.210 - Nicotine dependence, cigarettes, uncomplicated - Plan DVT prophylaxis: Lovenox GI prophylaxis: Will restart home medications, if any Diet: Diabetic diet Disposition: Pending symptomatic improvement - Advance Directives Does patient have a Living Will: No Does patient have a Durable POA for Healthcare: No - Code Status/Comfort Care Code Status Assessed: Yes Code Status: Full Code Time Spent Managing Pts Care (In Minutes): 55
[2019-06-04] MEDS ORDERED: GLUCAGON 1 MG/VIAL IM PRN (16:49)
[2019-06-04] MEDS ORDERED: D50W 25 GM/50 ML SYRINGE IV PRN (16:49)
[2019-06-04 17:09] VITALS: BMI 17.7
[2019-06-04] MEDS: NA CHLORIDE 0.9% 1,000 ML IV SCH (17:19)
[2019-06-04] MEDS ORDERED: INFLUENZA VACCINE (for 3y+) 0.5 ML DOSE IMVAC ONE (18:00)
[2019-06-04] MEDS: INSULIN -REGULAR HUMAN 50 UNIT/0.5 ML ML IV SCH (21:00)
[2019-06-05] MEDS: NA CHLORIDE 0.9% 1,000 ML IV SCH ×2 (03:50→13:33)
[2019-06-05 07:26] LABS: Absolute Lymphocytes (CBC) 0.8 K/uL (0.7-4.9); Basophils % 0.3 % (0-1.3); Hematocrit 27.2 % (36.0-45.0); Lymphocytes % 7.5 % (15.3-44.8); MPV 11.5 fL (7.6-11.3); RBC Red Blood Cell Count 2.88 M/uL (3.86-4.86)
[2019-06-05] MEDS: INSULIN -REGULAR HUMAN 50 UNIT/0.5 ML ML IV SCH ×4 (07:30→19:56)
[2019-06-05 07:41] LABS: Potassium 4.5 mmol/L (3.5-5.1)
[2019-06-05 08:13] LABS: Blood Morphology Comment NOT SEEN (NOT SEEN); Platelet Estimate DECR; Urine White Blood Cell Casts OK
[2019-06-05 08:25] LABS: Urine Appearance CLOUDY; Urine Bilirubin NEGATIVE (NEG); Urine Blood 1+ (NEG); Urine Color YELLOW; Urine Glucose NEGATIVE (NEG); Urine Protein TRACE (NEG); Urine Specific Gravity 1.015 (1.005-1.030); Urine Urobilinogen 0.2 mg/dL (0.2-1.0)
[2019-06-05 08:55] LABS: Urine Amorphous Sediment 2+ /HPF (NONE SEEN); Urine Bacteria >50 /HPF (<20); Urine Culture Reflex Order REFLEXED
[2019-06-05] MEDS: CEFTRIAXONE/SWI 1gm 1 GM/10 ML SYR IVP SCH ×2 (11:51→19:56)
--- NOTE | 2019-06-05 11:55 | P.PN ---
Subjective Date of Service: 06/05/19 Chief Complaint: Dehydration, nausea/vomiting Subjective: Improving Patient seen and examined at bedside. No family at bedside. Chart reviewed and case discussed with nursing staff. Reports feeling cold this morning, otherwise no complaints. No acute events noted overnight. Tolerating oral diet, ambulation at baseline Review of Systems 10-point ROS is otherwise unremarkable Physical Examination - Vital Signs Temperature: 97.1 F Blood Pressure: 89/51 Pulse: 60 Respirations: 18 Pulse Ox (%): 100 - Physical Exam General: Alert, In no apparent distress, Cachectic HEENT: Atraumatic, PERRLA, EOMI Neck: Supple, JVD not distended Respiratory: Clear to auscultation bilaterally, Normal air movement Cardiovascular: Regular rate/rhythm, Normal S1 S2 Gastrointestinal: Normal bowel sounds, No tenderness Musculoskeletal: No tenderness Integumentary: No rashes Neurological: Normal speech, Normal tone, Normal affect Lymphatics: No axilla or inguinal lymphadenopathy - Studies Laboratory Data (last 24 hrs) 06/04/19 11:36: WBC 29.5 H*, Hgb 12.9, Hct 39.7, Plt Count 194 06/04/19 11:36: Sodium 142, Potassium 5.7 H*, BUN 38 H, Creatinine 2.38 H, Glucose 195 H, Total Bilirubin 0.4, AST 20, ALT 16, Alkaline Phosphatase 103, Lipase 113 Assessment And Plan - Current Problems (Diagnosis) (1) Dehydration Current Visit: Yes Status: Acute (2) Acute kidney injury Current Visit: Yes Status: Acute Plan: Improving Likely pre renal due to decreased intake along with chronic diarrhea. -continue IV fluids, maintenance dose. -monitor labs -will hold Lasix or other diuretics at this time -Will restart home medications as tolerated -will consult nephrology if no improvement. (3) Acidosis Current Visit: Yes Status: Acute Plan: Continue to monitor via labs after IV fluid administration. Improved (4) Chronic diarrhea Current Visit: Yes Status: Acute (5) CAD (coronary artery disease) Onset Date: 05/22/17 Current Visit: No Status: Chronic Qualifiers: Coronary Disease-Associated Artery/Lesion type: bypass graft [place] vs. 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 insulin use: without chcf use Diabetes mellitus complication status: with hyperglycemia Qualified Code(s): E11.65 - Type 2 diabetes mellitus with hyperglycemia (8) GERD (gastroesophageal reflux disease) Onset Date: 05/22/17 Current Visit: No Status: Chronic Qualifiers: Esophagitis presence: esophagitis presence not specified Qualified Code(s) : K21.9 - Gastro-esophageal reflux disease without esophagitis (9) Hyperlipidemia Onset Date: 05/22/17 Current Visit: No Status: Chronic Qualifiers: Hyperlipidemia type: unspecified Qualified Code(s): E78.5 - Hyperlipidemia , unspecified (10) Hypertension Onset Date: 05/22/17 Current Visit: No Status: Chronic Qualifiers: Hypertension type: essential hypertension (11) Nicotine dependence Current Visit: No Status: Chronic Plan: Counseled Qualifiers: Nicotine product type: cigarettes Substance use status: uncomplicated Qualified Code(s): F17.210 - Nicotine dependence, cigarettes, uncomplicated (12) Urinary tract infection Current Visit: Yes Status: Acute Plan: Started patient on Rocephin. Cultures pending, will adjust antibiotics as needed. Qualifiers: Urinary tract infection type: acute cystitis Hematuria presence: without hematuria Qualified Code(s): N30.00 - Acute cystitis without hematuria - Plan DVT prophylaxis: Lovenox GI prophylaxis: Will restart home medications, if any Diet: Diabetic diet Disposition: Pending symptomatic improvement
[2019-06-06] MEDS: NA CHLORIDE 0.9% 1,000 ML IV SCH ×2 (00:08→08:42)
[2019-06-06] MEDS: INSULIN -REGULAR HUMAN 50 UNIT/0.5 ML ML IV SCH ×4 (07:30→20:31)
[2019-06-06] MEDS: CEFTRIAXONE/SWI 1gm 1 GM/10 ML SYR IVP SCH ×2 (08:46→20:25)
--- NOTE | 2019-06-06 10:54 | P.PN ---
Subjective Date of Service: 06/06/19 Chief Complaint: Dehydration, nausea/vomiting Patient seen and examined at bedside. No family at bedside. Chart reviewed and case discussed with nursing staff. No complaints this morning. No acute events noted overnight. Tolerating oral diet, ambulation at baseline Review of Systems 10-point ROS is otherwise unremarkable Physical Examination - Vital Signs Temperature: 97.3 F Blood Pressure: 97/55 Pulse: 65 Respirations: 18 Pulse Ox (%): 97 - Physical Exam General: Alert, In no apparent distress, Oriented x3 HEENT: Atraumatic, PERRLA, EOMI Neck: Supple, JVD not distended Respiratory: Clear to auscultation bilaterally, Normal air movement Cardiovascular: Regular rate/rhythm, Normal S1 S2 Gastrointestinal: Normal bowel sounds, No tenderness Musculoskeletal: No tenderness Integumentary: No rashes Neurological: Normal speech, Normal tone, Normal affect Lymphatics: No axilla or inguinal lymphadenopathy Assessment And Plan - Current Problems (Diagnosis) (1) Dehydration Current Visit: Yes Status: Acute (2) Acute kidney injury Current Visit: Yes Status: Acute Plan: Improving, labs pending this am. Likely pre renal due to decreased intake along with chronic diarrhea. -continue IV fluids, maintenance dose. -monitor labs -will hold Lasix or other diuretics at this time -Will restart home medications as tolerated -will consult nephrology if no improvement. (3) Acidosis Current Visit: Yes Status: Acute Plan: Continue to monitor via labs after IV fluid administration. Improved, labs pending this am (4) Chronic diarrhea Current Visit: Yes Status: Acute Plan: Patient with a hx of chronic diarrhea; C. diff pending, though C. diff less likely. (5) CAD (coronary artery disease) Onset Date: 05/22/17 Current Visit: No Status: Chronic Qualifiers: Coronary Disease-Associated Artery/Lesion type: bypass graft [place] vs. transplanted heart: [place] heart Associated angina: without angina Qualified Code(s): I25.810 - Atherosclerosis of coronary artery bypass graft(s) without angina pectoris (6) COPD (chronic obstructive pulmonary disease) Onset Date: 05/22/17 Current Visit: No Status: Chronic Qualifiers: COPD type: chronic bronchitis Chronic bronchitis type: unspecified Qualified Code(s): J42 - Unspecified chronic bronchitis (7) Diabetes mellitus Onset Date: 05/22/17 Current Visit: No Status: Chronic Qualifiers: Diabetes mellitus type: type 2 Diabetes mellitus intermediate manager insulin use: without intermediate manager use Diabetes mellitus complication status: with hyperglycemia Qualified Code(s): E11.65 - Type 2 diabetes mellitus with hyperglycemia (8) GERD (gastroesophageal reflux disease) Onset Date: 05/22/17 Current Visit: No Status: Chronic Qualifiers: Esophagitis presence: esophagitis presence not specified Qualified Code(s) : K21.9 - Gastro-esophageal reflux disease without esophagitis (9) Hyperlipidemia Onset Date: 05/22/17 Current Visit: No Status: Chronic Qualifiers: Hyperlipidemia type: unspecified Qualified Code(s): E78.5 - Hyperlipidemia , unspecified (10) Hypertension Onset Date: 05/22/17 Current Visit: No Status: Chronic Qualifiers: Hypertension type: essential hypertension (11) Nicotine dependence Current Visit: No Status: Chronic Plan: Counseled Qualifiers: Nicotine product type: cigarettes Substance use status: uncomplicated Qualified Code(s): F17.210 - Nicotine dependence, cigarettes, uncomplicated (12) Urinary tract infection Current Visit: Yes Status: Acute Plan: Continue Rocephin. Cultures still pending, will adjust antibiotics as needed. Qualifiers: Urinary tract infection type: acute cystitis Hematuria presence: without hematuria Qualified Code(s): N30.00 - Acute cystitis without hematuria - Plan DVT prophylaxis: Lovenox GI prophylaxis: Will restart home medications, if any Diet: Diabetic diet Disposition: Pending symptomatic improvement. Anticipate discharge home in 24- 48 hrs.
[2019-06-06 11:22] LABS: Absolute Lymphocytes (CBC) 0.9 K/uL (0.7-4.9); Basophils % 0.3 % (0-1.3); Hematocrit 29.2 % (36.0-45.0); Lymphocytes % 10.4 % (15.3-44.8); MPV 10.6 fL (7.6-11.3); RBC Red Blood Cell Count 3.07 M/uL (3.86-4.86)
[2019-06-06 11:39] LABS: Albumin 2.4 g/dL (3.4-5.0); Bilirubin Total 0.2 mg/dL (0.2-1.0); Potassium 4.3 mmol/L (3.5-5.1)
[2019-06-06] MEDS: MEMANTINE HCL 10 MG TABLET PO SCH (20:25)
[2019-06-06] MEDS: NACHLORIDE 0.45% 1,000 ML IV SCH (20:25)
[2019-06-06] MEDS: MEGESTROL 40 MG TAB PO SCH (20:25)
[2019-06-06] MEDS ORDERED: DONEPEZIL HCL 5 MG TAB PO SCH (21:00)
[2019-06-07] MEDS: NACHLORIDE 0.45% 1,000 ML IV SCH (05:13)
[2019-06-07] MEDS ORDERED: LEVOTHYROXINE SOD 0.025 MG TAB PO SCH (06:00)
[2019-06-07] MEDS: INSULIN -REGULAR HUMAN 50 UNIT/0.5 ML ML IV SCH ×2 (07:30→11:30)
[2019-06-07] MEDS: MEMANTINE HCL 10 MG TABLET PO SCH (08:14)
[2019-06-07] MEDS: CEFTRIAXONE/SWI 1gm 1 GM/10 ML SYR IVP SCH (08:14)
[2019-06-07] MEDS: MEGESTROL 40 MG TAB PO SCH (08:57)
[2019-06-07] MEDS ORDERED: FERROUS GLUCONATE PO SCH (09:00)
[2019-06-07] MEDS ORDERED: HOME MED 1 EA UNK (Donepezil Hcl [Aricept] 10 MG) PO SCH (09:00)
[2019-06-07] MEDS ORDERED: FERROUS GLUCONATE 324 MG TAB PO SCH (09:00)
[2019-06-07] MEDS ORDERED: CYANOCOBALAMIN 500 MCG PO SCH (09:00)
[2019-06-07] MEDS ORDERED: MULTIVITAMIN TAB PO SCH (09:00)
[2019-06-07] MEDS ORDERED: CLOPIDOGREL 75 MG TABLET PO SCH (09:00)
[2019-06-07] MEDS ORDERED: CYANOCOBALAMIN 1,000 MCG TAB PO SCH (09:00)
[2019-06-07] MEDS ORDERED: MULTIVITAMIN PO SCH (09:00)
[2019-06-07] MEDS ORDERED: MEGESTROL 40 MG TAB PO SCH (09:00)
[2019-06-07] MEDS ORDERED: ESCITALOPRAM 20 MG TAB PO SCH (09:00)
[2019-06-07] MEDS ORDERED: ATORVASTATIN 40 MG TAB PO SCH (09:00)
[2019-06-07 11:06] VITALS: O2SAT 95
[2019-06-07 14:14] VITALS: BP 135/65; TEMP 97.9
--- NOTE | 2019-06-16 17:38 | P.DS ---
Admission Date: 06/04/19 Discharge Date: 06/07/19 Disposition: ROUTINE DISCHARGE Reason for Admission: Dehydration, nausea/vomiting - Problems (1) Dehydration Status: Acute (2) Acute kidney injury Status: Acute (3) Acidosis Status: Acute (4) Chronic diarrhea Status: Acute (5) CAD (coronary artery disease) Onset Date: 05/22/17 Status: Chronic Qualifiers: Coronary Disease-Associated Artery/Lesion type: bypass graft [place] vs. transplanted heart: [place] heart Associated angina: without angina Qualified Code(s): I25.810 - Atherosclerosis of coronary artery bypass graft(s) without angina pectoris (6) COPD (chronic obstructive pulmonary disease) Onset Date: 05/22/17 Status: Chronic Qualifiers: COPD type: chronic bronchitis Chronic bronchitis type: unspecified Qualified Code(s): J42 - Unspecified chronic bronchitis (7) Diabetes mellitus Onset Date: 05/22/17 Status: Chronic Qualifiers: Diabetes mellitus type: type 2 Diabetes mellitus longterm insulin use: without continuous churn buttermaker use Diabetes mellitus complication status: with hyperglycemia Qualified Code(s): E11.65 - Type 2 diabetes mellitus with hyperglycemia (8) GERD (gastroesophageal reflux disease) Onset Date: 05/22/17 Status: Chronic Qualifiers: Esophagitis presence: esophagitis presence not specified Qualified Code(s) : K21.9 - Gastro-esophageal reflux disease without esophagitis (9) Hyperlipidemia Onset Date: 05/22/17 Status: Chronic Qualifiers: Hyperlipidemia type: unspecified Qualified Code(s): E78.5 - Hyperlipidemia , unspecified (10) Hypertension Onset Date: 05/22/17 Status: Chronic Qualifiers: Hypertension type: essential hypertension (11) Nicotine dependence Status: Chronic Qualifiers: Nicotine product type: cigarettes Substance use status: uncomplicated Qualified Code(s): F17.210 - Nicotine dependence, cigarettes, uncomplicated (12) Urinary tract infection Status: Acute Qualifiers: Urinary tract infection type: acute cystitis Hematuria presence: without hematuria Qualified Code(s): N30.00 - Acute cystitis without hematuria Brief History of Present Illness: This is a 79-year-old female with past medical history of diabetes, hypertension , Alzheimer's dementia and coronary artery disease who presented to the ER with complaints of nausea/vomiting for the past couple of days. Per patient and family at bedside, she had nausea and vomiting the past couple of days, did not get better. He also states that she does not really drink any water oral liquids except for 1 Dr. per per day. She also has a history of chronic diarrhea. States that she has about 2-3 bowel movements a day that are watery nonbloody. This has been the norm for her for a few years now. She was generally not feeling well and along with the nausea vomiting therefore she came to the emergency room. In the ER, blood pressure was 129/101, heart rate of 84, respirations 16, afebrile at 97.9, satting 99% on room air and BMI of 17.34. Her labs were remarkable for potassium elevated at 5.7, chloride elevated at 115, CO2 low at 16 and creatinine elevated at 2.38. CT of the abdomen was negative for any acute abnormalities. She received 3 L fluid bolus in the ER. At the time of my exam, she is alert oriented x3, in no acute distress. And hemodynamically stable. Hospital Course: Patient was admitted for dehydration and acute kidney injury acidosis. She was provided with IV fluids and supportive care. Her symptoms improved. She otherwise remained stable throughout the stay. She was found to have a urinary tract infection, started on antibiotics. Cultures were positive for Enterobacter aerogenes. She was discharged on oral Levaquin. Her diagnosis and treatment plan was explained to her, all questions were answered and she verbalized understanding. She was then discharged home in a safe and stable manner. Vital Signs/Physical Exam: Temp Pulse Resp BP Pulse Ox 97.9 F 73 16 135/65 97 06/07/19 12:00 06/07/19 12:00 06/07/19 12:00 06/07/19 12:06/07/19 12:00 General: Alert, In no apparent distress, Oriented x3 HEENT: Atraumatic, PERRLA, EOMI Neck: Supple, JVD not distended Respiratory: Clear to auscultation bilaterally, Normal air movement Cardiovascular: Regular rate/rhythm, Normal S1 S2 Gastrointestinal: Normal bowel sounds, No tenderness Musculoskeletal: No tenderness Integumentary: No rashes Neurological: Normal speech, Normal tone, Normal affect Lymphatics: No axilla or inguinal lymphadenopathy Laboratory Data at Discharge: WBC 8.5 K/uL (4.3-10.9) D 06/06/19 11:01 Hgb 9.8 g/dL (12.0-15.0) L 06/06/19 11:01 Hct 29.2 % (36.0-45.0) L 06/06/19 11:01 Plt Count 112 K/uL (152-406) L 06/06/19 11:01 Sodium 146 mmol/L (136-145) H 06/06/19 11:01 Potassium 4.3 mmol/L (3.5-5.1) 06/06/19 11:01 BUN 15 mg/dL (7-18) 06/06/19 11:01 Creatinine 1.01 mg/dL (0.55-1.3) 06/06/19 11:01 Glucose 84 mg/dL (74-106) 06/06/19 11:01 Total Bilirubin 0.2 mg/dL (0.2-1.0) 06/06/19 11:01 AST 26 U/L (15-37) 06/06/19 11:01 ALT 24 U/L (12-78) 06/06/19 11:01 Alkaline Phosphatase 68 U/L (45-117) 06/06/19 11:01 Lipase 113 U/L (73-393) 06/04/19 11:36 Home Medications: Albuterol Sulfate [Proair Hfa] 2 puff IH QIDP PRN 06/04/19 Atorvastatin Calcium [Lipitor] 40 mg PO DAILY 06/04/19 Clopidogrel Bisulfate [Plavix*] 75 mg PO DAILY 06/04/19 Donepezil HCl [Aricept] 10 mg PO DAILY 06/04/19 Escitalopram [Lexapro*] 10 mg PO DAILY 06/04/19 Levothyroxine [Synthroid*] 25 mcg PO [id number] 06/04/19 Megestrol [Megace*] 20 mg PO BID 06/04/19 Megestrol [Megace*] 40 mg PO DAILY 06/04/19 Memantine HCl [Namenda*] 10 mg PO BID 06/04/19 Mesalamine 1.2 gm PO DIRECTED 06/04/19 Metformin HCl 500 mg PO BIDWM 06/04/19 Metoprolol Succinate [Toprol Xl*] 12.5 mg PO DAILY 06/04/19 Multivitamin [Multivitamins] 1 tab PO DAILY 06/04/19 Cyanocobalamin (Vitamin B-12) [Vitamin B-12] 500 mcg PO DAILY 06/05/19 Ferrous Gluconate [Fergon] 1 tab PO DAILY 06/05/19 levoFLOXacin [Levaquin] 500 mg PO DAILY 5 Days tab 06/07/19 New Medications: levoFLOXacin [Levaquin] 500 mg PO DAILY 5 Days tab Time spent managing pt's care (in minutes): 55
== END 2019-06-07 13:10 | disposition home or self-care (01) | DRG 690 ==
LOC: ER 11:02 → ERHOLD 13:42 → 4TH 16:07
PROVIDERS: ADMIT Family Medicine; ATTEND Family Medicine
DX: N30.00 Acute cystitis without hematuria (principal); N17.9 Acute kidney failure, unspecified; E87.2 Acidosis; R64 Cachexia; Z68.1 Body mass index [BMI] 19.9 or less, adult; B96.89 Other specified bacterial agents as the cause of diseases classified elsewhere; E86.0 Dehydration; I25.10 Atherosclerotic heart disease of native coronary artery without angina pectoris; J44.9 Chronic obstructive pulmonary disease, unspecified; E11.9 Type 2 diabetes mellitus without complications; K21.9 Gastro-esophageal reflux disease without esophagitis; E78.5 Hyperlipidemia, unspecified; I10 Essential (primary) hypertension; F17.210 Nicotine dependence, cigarettes, uncomplicated; R19.7 Diarrhea, unspecified; Z95.1 Presence of aortocoronary bypass graft
CPT/HCPCS: 36415; 74176; 80048; 80053; 80076; 81001; 82962; 83690; 85025; 87077; 87086; 87088; 87186; 87493; 93005; 96360; 96361; 97110; 97116; 97161; 97530; 99285; J0696; J7030

== ENCOUNTER 2019-06-28 14:01 | Emergency (ER) | payer OTHER ==
[2019-06-28] MEDS ORDERED: NA CHLORIDE 0.9% 1,000 ML ONE (14:54)
[2019-06-28 15:25] LABS: Absolute Lymphocytes (CBC) 1.3 K/uL (0.7-4.9); Basophils % 0.4 % (0-1.3); Hematocrit 32.1 % (36.0-45.0); Lymphocytes % 12.5 % (15.3-44.8); MPV 11.1 fL (7.6-11.3); RBC Red Blood Cell Count 3.41 M/uL (3.86-4.86)
[2019-06-28 15:28] LABS: Protime INR 1.02
--- NOTE | 2019-06-28 15:28 | RAD REPORT ---
EXAM DESCRIPTION: CT - Head Brain Wo Cont - 06/28/2019 3:11 pm CLINICAL HISTORY: Transient alteration of awareness COMPARISON: May 06 TECHNIQUE: Axial 5 mm thick images of the head were obtained without IV contrast. All CT scans are performed using dose optimization technique as appropriate and may include automated exposure control or mA/KV adjustment according to patient size. FINDINGS: No intracranial hemorrhage, mass, edema or shift of mid-line structures. No acute infarcti on changes seen. No cortical edema or sulcal effacement. Prominent atrophy changes are present with v entricles in proportion. Chronic ischemic changes are relatively mild. Arterial calcifications are pr esent. Mastoid air cells are clear. No acute paranasal sinus finding. No acute bony findings. IMPRESSION: Atrophy and chronic ischemic changes are present as detailed. No acute intracranial find ing. Intracranial findings are not significantly different from comparison.
[2019-06-28 16:01] LABS: ALT/SGPT 18 U/L (12-78); AST/SGOT 21 U/L (15-37); Albumin 2.8 g/dL (3.4-5.0); Alkaline Phosphatase 83 U/L (45-117); BUN Blood Urea Nitrogen 22 mg/dL (7-18); Bicarbonate 30 mmol/L (21-32); Bilirubin Direct < 0.1 mg/dL (0-0.2); Bilirubin Total 0.2 mg/dL (0.2-1.0); Glucose Level 97 mg/dL (74-106); Lipase 173 U/L (73-393); Magnesium 2.2 mg/dL (1.8-2.4); Potassium 4.4 mmol/L (3.5-5.1); Protein, Total 6.6 g/dL (6.4-8.2); Sodium Level 144 mmol/L (136-145); Troponin (Emerg Dept Use Only) < 0.02 ng/mL (0.0-0.045)
[2019-06-28 17:06] LABS: Barbiturates NEGATIVE (NEGATIVE); Benzodiazepines NEGATIVE (NEGATIVE); Cocaine NEGATIVE (NEGATIVE); METHAMPHETAM NEGATIVE (NEGATIVE); Methadone NEGATIVE (NEGATIVE); Opiates NEGATIVE (NEGATIVE); Phencyclidine NEGATIVE (NEGATIVE); THC Cannibis NEGATIVE (NEGATIVE)
[2019-06-28 17:30] LABS: Urine Blood 2+ (NEG); Urine Glucose NEGATIVE (NEG); Urine Protein 2+ (NEG); Urine pH 6.5 (5.0-7.0)
[2019-06-28 17:37] LABS: Urine Bacteria 20-50 /HPF (<20)
[2019-06-28 17:38] LABS: Urine Culture Reflex Order REFLEXED; Urine Mucus 3+ /HPF (NONE SEEN); Urine Yeast FEW (NONE SEEN)
[2019-06-28] MEDS ORDERED: CEFTRIAXONE/SWI 1gm 1 GM/10 ML SYR ONE (18:01)
--- NOTE | 2019-06-28 18:54 | EDPHYS ---
Physician Documentation [facility] Name: Maricel Guerrero Age: 79 yrs Sex: Female : 1940 Arrival Date: 06/28/2019 Time: 14:04 Bed 16 Private MD: ED Physician Ady Barnes HPI: 06/28 15:48 This 79 yrs old Female presents to ER via Wheelchair with complaints of Flu wa Symptoms. 15:48 The patient presents with confusion, decreased responsiveness. Onset: The wa symptoms/episode began/occurred 4 day(s) ago. Possible causes: unknown. Associated signs and symptoms: Pertinent positives: weakness. Current symptoms: In the emergency department the patient's symptoms are unchanged from the initial presentation. Patient's baseline: Neuro: alert but confused, Motor: no deficits, Ambulation: walks without assistance, Speech: normal, The patient has a previous history of alzheimer's and liver CA with mets. The patient has experienced similar episodes in the past, a few times. The patient has not recently seen a physician. per family, pt generally weak. denies vomiting. states more confused. Historical: - Allergies: 14:15 Iodine; jl7 - Home Meds: 14:15 aspirin 81 mg Oral TbEC 1 tab once daily [Active]; atorvastatin 40 mg Oral tab jl7 [Active]; clopidogrel 75 mg Oral tab 1 tab once daily [Active]; donepezil 10 mg Oral tab 1 tab once daily [Active]; megestrol 40 mg Oral tab 1 tab [Active]; escitalopram oxalate 10 mg Oral tab 1 tab once daily [Active]; Hemocyte-Plus 106 mg iron- 1 mg Oral cap 1 cap once daily [Active]; nitroglycerin 0.4 mg Oral as needed [Active]; ProAir HFA 90 mcg/actuation inhalation HFAA [Active]; Synthroid 25 mcg Oral tab 1 tab once daily [Active]; Toprol XL 25 mg Oral Tb24 [Active]; tramadol 50 mg Oral tab [Active]; zolpidem 10 mg Oral tab [Active]; memantine 10 mg Oral tab [Active]; - PMHx: 14:15 AAA; Colon Cancer with metastasis to liver; Diabetes - NIDDM; Headaches; Hypertension; jl7 Hypothyroidism; - PSHx: 14:15 hip; Heart Surgery; tube placement; jl7 - Immunization history:: Adult Immunizations up to date. - Social history:: Smoking status: Patient uses tobacco products, smokes one pack cigarettes per day. - Ebola Screening: : No symptoms or risks identified at this time. - Family history:: not pertinent. - Hospitalizations: : No recent hospitalization is reported. ROS: 15:53 Constitutional: Negative for fever, chills, and weight loss, Eyes: Negative for injury, wa pain, redness, and discharge, ENT: Negative for injury, pain, and discharge, Neck: Negative for injury, pain, and swelling, Cardiovascular: Negative for chest pain, palpitations, and edema, Respiratory: Negative for shortness of breath, cough, wheezing, and pleuritic chest pain, Abdomen/GI: Negative for abdominal pain, nausea, vomiting, diarrhea, and constipation, Back: Negative for injury and pain, : Negative for injury, bleeding, discharge, and swelling, MS/Extremity: Negative for injury and deformity, Skin: Negative for injury, rash, and discoloration. 15:53 Neuro: Positive for weakness, generalized weakness. confusion. 15:53 All other systems are negative. Exam: 15:57 Constitutional: This is a well developed, well nourished patient who is awake, alert, wa and in no acute distress. Head/Face: Normocephalic, atraumatic. Eyes: Pupils equal round and reactive to light, extra-ocular motions intact. Lids and lashes normal. Conjunctiva and sclera are non-icteric and not injected. Cornea within normal limits. Periorbital areas with no swelling, redness, or edema. Neck: Trachea midline, no thyromegaly or masses palpated, and no cervical lymphadenopathy. Supple, full range of motion without nuchal rigidity, or vertebral point tenderness. No Meningismus. Chest/axilla: Normal chest wall appearance and motion. Nontender with no deformity. No lesions are appreciated. Cardiovascular: Regular rate and rhythm with a normal S1 and S2. No gallops, murmurs, or rubs. Normal PMI, no JVD. No pulse deficits. Respiratory: Lungs have equal breath sounds bilaterally, clear to auscultation and percussion. No rales, rhonchi or wheezes noted. No increased work of breathing, no retractions or nasal flaring. Abdomen/GI: Soft, non-tender, with normal bowel sounds. No distension or tympany. No guarding or rebound. No evidence of tenderness throughout. Back: No spinal tenderness. No costovertebral tenderness. Full range of motion. Skin: Warm, dry with normal turgor. Normal color with no rashes, no lesions, and no evidence of cellulitis. MS/ Extremity: Pulses equal, no cyanosis. Neurovascular intact. Full, normal range of motion. 15:57 ENT: Posterior pharynx: dry mucosa. 15:57 Neuro: Orientation: is normal, Cranial nerves: grossly normal, Motor: is normal. Vital Signs: 14:15 BP 105 / 54; Pulse 62; Resp 21 S; Temp 98.3(O); Pulse Ox 98% on R/A; Pain 0/10; jl7 15:21 BP 106 / 64; Pulse 59; Resp 17; Pulse Ox 96% on R/A; tw2 16:30 BP 114 / 58; Pulse 60; Resp 16; Pulse Ox 100% on R/A; tr5 17:30 BP 113 / 65; Pulse 58; Resp 16; Pulse Ox 99% on R/A; tr5 18:30 BP 120 / 65; Pulse 57; Resp 16; Pulse Ox 100% on R/A; tr5 MDM: 14:34 Patient medically screened. il 15:58 Differential Diagnosis: CVA, electrolyte abnormality, pneumonia, UTI, volume depletion. il Data reviewed: vital signs, nurses notes. 17:59 Test interpretation: by ED physician or midlevel provider: work up wnl except for il pyuria on UA. will give IV abx and . 18:48 Response to treatment: the patient's symptoms have markedly improved after treatment. il Special discussion: received 2 grams of Rocephin for UTI. will d/c with meds and closed f/u. 18:49 ED course: received fluids. Rocephin. Will d/c with antibiotics as reassess. il 18:56 ED course: HR 64. sinus. junctional rhythm. il 06/28 14:51 Order name: Basic Metabolic Panel; Complete Time: 16:04 06/28 14:51 Order name: CBC with Diff; Complete Time: 16:04 il 06/28 14:51 Order name: Hepatic Function; Complete Time: 16:04 il 06/28 14:51 Order name: Lipase; Complete Time: 16:04 il 06/28 14:51 Order name: Magnesium; Complete Time: 16:04 il 06/28 14:51 Order name: Protime (+inr); Complete Time: 16:04 il 06/28 14:51 Order name: Ptt, Activated; Complete Time: 16:04 il 06/28 14:51 Order name: Troponin (emerg Dept Use Only); Complete Time: 16:04 il 06/28 14:52 Order name: Urine Drug Screen; Complete Time: 17:08 EDMS 06/28 14:52 Order name: Urine Microscopic Only; Complete Time: 17:50 il 06/28 14:52 Order name: AMMONIA; Complete Time: 16:04 il 06/28 16:18 Order name: Flu; Complete Time: 17:34 il 06/28 17:29 Order name: Urine Dipstick--Ancillary (enter results) bd 06/28 14:51 Order name: CT Head Brain wo Cont; Complete Time: 16:04 il 06/28 14:51 Order name: EKG; Complete Time: 14:52 il 06/28 14:51 Order name: Cardiac monitoring; Complete Time: 14:52 il 06/28 14:51 Order name: EKG - Nurse/Tech; Complete Time: 15:12 il 06/28 14:51 Order name: IV Saline Lock; Complete Time: 15:12 il 06/28 14:51 Order name: Labs collected and sent; Complete Time: 15:12 il 06/28 14:51 Order name: NPO; Complete Time: 14:53 il 06/28 14:51 Order name: O2 Sat Monitoring; Complete Time: 14:53 il 06/28 14:51 Order name: Urine Dipstick-Ancillary (obtain specimen); Complete Time: 16:51 il 06/28 17:41 Order name: Urine Culture EDMS Administered Medications: 15:05 Drug: NS 0.9% 1000 ml Route: IV; Rate: 1 bolus; Site: left hand; tw2 18:08 Drug: Rocephin - (cefTRIAXone) 2 grams Route: IVPB; Infused Over: 30 mins; Site: left tr5 antecubital; Disposition: 06/28/19 18:52 Discharged to Home. Impression: Acute AMS, Acute UTI. - Condition is Stable. - Discharge Instructions: Urinary Tract Infection, Adult, [id number]. - Prescriptions for Augmentin 875- 125 mg Oral Tablet - take 1 tablet by ORAL route every 12 hours for 7 days; 14 tablet. - Medication Reconciliation Form, Thank You Letter, Antibiotic Education, Prescription Opioid Use form. - Follow up: Private Physician; When: 1 - 2 days; Reason: Recheck today's complaints. - Problem is new. - Symptoms have improved. - Notes: take medication as prescribed. return to ER if worsening or new concerns Signatures: Dispatcher [employer] [facility] Molly May, RN RN tw2 Yomi Kirkpatrick RN RN jl7 Ady Barnes MD MD wa Rodriguez, Tommie RN RN tr5 Corrections: (The following items were deleted from the chart) 16:37 14:52 URINE DRUG SCREEN+CHEM UR.LAB.BRZ ordered. [facility] 19:13 18:52 06/28/2019 18:52 Discharged to Home. Impression: Acute AMS; Acute UTI. Condition tr5 is Stable. Forms are Medication Reconciliation Form, Thank You Letter, Antibiotic Education, Prescription Opioid Use. Follow up: Private Physician; When: 1 - 2 days; Reason: Recheck today's complaints. Problem is new. Symptoms have improved. wa
--- NOTE | 2019-06-28 18:54 | ER ---
Nurse's Notes [facility] Name: Maricel Guerrero Age: 79 yrs Sex: Female : 1940 Arrival Date: 06/28/2019 Time: 14:04 Bed 16 Private MD: Diagnosis: Acute AMS;Acute UTI Presentation: 06/28 14:07 Presenting complaint: Pts sister reports home health nurse said to bring her up to the [facility] ER because she's not acting right. Pt's sister reports "She's like in [place]." Pt A\\T\\Ox4 but reports "I don't feel good.". 14:07 Acuity: WILL 3 jl7 14:08 Transition of care: patient was not received from another setting of care. Onset of [facility] symptoms was June 28, 2019. Risk Assessment: Do you want to hurt yourself or someone else? Patient reports no desire to harm self or others. Initial Sepsis Screen: Does the patient meet any 2 criteria? No. Patient's initial sepsis screen is negative. Does the patient have a suspected source of infection? No. Patient's initial sepsis screen is negative. Care prior to arrival: None. 14:08 Method Of Arrival: Wheelchair [facility] Historical: - Allergies: 14:15 Iodine; jl7 - Home Meds: 14:15 aspirin 81 mg Oral TbEC 1 tab once daily [Active]; atorvastatin 40 mg Oral tab jl7 [Active]; clopidogrel 75 mg Oral tab 1 tab once daily [Active]; donepezil 10 mg Oral tab 1 tab once daily [Active]; megestrol 40 mg Oral tab 1 tab [Active]; escitalopram oxalate 10 mg Oral tab 1 tab once daily [Active]; Hemocyte-Plus 106 mg iron- 1 mg Oral cap 1 cap once daily [Active]; nitroglycerin 0.4 mg Oral as needed [Active]; ProAir HFA 90 mcg/actuation inhalation HFAA [Active]; Synthroid 25 mcg Oral tab 1 tab once daily [Active]; Toprol XL 25 mg Oral Tb24 [Active]; tramadol 50 mg Oral tab [Active]; zolpidem 10 mg Oral tab [Active]; memantine 10 mg Oral tab [Active]; - PMHx: 14:15 AAA; Colon Cancer with metastasis to liver; Diabetes - NIDDM; Headaches; Hypertension; jl7 Hypothyroidism; - PSHx: 14:15 hip; Heart Surgery; tube placement; jl7 - Immunization history:: Adult Immunizations up to date. - Social history:: Smoking status: Patient uses tobacco products, smokes one pack cigarettes per day. - Ebola Screening: : No symptoms or risks identified at this time. - Family history:: not pertinent. - Hospitalizations: : No recent hospitalization is reported. Screenin:21 Abuse screen: Denies threats or abuse. Nutritional screening: No deficits noted. tw2 Tuberculosis screening: No symptoms or risk factors identified. Fall Risk Secondary diagnosis (15 points) impaired mobility. Assessment: 14:43 Reassessment: provider at bedside at this time. tw2 15:00 General: Appears in no apparent distress. slender, Behavior is calm, cooperative, tw2 appropriate for age. Pain: Denies pain. Neuro: Level of Consciousness is awake, alert, obeys commands, Oriented to person, place, situation. Cardiovascular: Heart tones S1 S2 Patient's skin is warm and dry. Respiratory: Reports cough that is Airway is patent Respiratory effort is even, unlabored, Respiratory pattern is regular, symmetrical, Breath sounds are clear bilaterally. GI: No signs and/or symptoms were reported involving the gastrointestinal system. Abdomen is flat, Bowel sounds present X 4 quads. : No signs and/or symptoms were reported regarding the genitourinary system. EENT: No signs and/or symptoms were reported regarding the EENT system. Derm: No signs and/or symptoms reported regarding the dermatologic system. Musculoskeletal: Circulation, motion, and sensation intact. Range of motion: intact in all extremities, Reports "body aches". 15:25 Reassessment: No changes from previously documented assessment. Patient and/or family tw2 updated on plan of care and expected duration. Pain level reassessed. 17:00 Reassessment: Patient appears in no apparent distress at this time. Patient and/or tr5 family updated on plan of care and expected duration. Pain level reassessed. Family at pt's bedside. 18:00 Reassessment: Patient appears in no apparent distress at this time. No changes from tr5 previously documented assessment. Patient and/or family updated on plan of care and expected duration. Pain level reassessed. Vital Signs: 14:15 BP 105 / 54; Pulse 62; Resp 21 S; Temp 98.3(O); Pulse Ox 98% on R/A; Pain 0/10; jl7 15:21 BP 106 / 64; Pulse 59; Resp 17; Pulse Ox 96% on R/A; tw2 16:30 BP 114 / 58; Pulse 60; Resp 16; Pulse Ox 100% on R/A; tr5 17:30 BP 113 / 65; Pulse 58; Resp 16; Pulse Ox 99% on R/A; tr5 18:30 BP 120 / 65; Pulse 57; Resp 16; Pulse Ox 100% on R/A; tr5 ED Course: 14:04 Patient arrived in ED. mr 14:15 Arm band placed on right wrist. jl7 14:20 Triage completed. jl7 14:21 Molly May, MORENO is Primary Nurse. tw2 14:21 Bed in low position. Call light in reach. Side rails up X2. Adult w/ patient. Cardiac tw2 monitor on. Pulse ox on. NIBP on. 14:34 Ady Barnes MD is Attending Physician. wa 15:05 Inserted saline lock: 22 gauge in left hand, using aseptic technique. Blood collected. tw2 15:07 EKG done, by maintenance mechanic technician. reviewed by Ady Barnes MD. at1 15:11 CT Head Brain wo Cont In Process Unspecified. EDMS 16:02 Report given to MORENO Mi - outstanding is URINE, needed for collection and umic at tw2 this time. 16:36 Flu Sent. tr5 16:40 Assisted with bedpan. tr5 19:11 No provider procedures requiring assistance completed. IV discontinued. tr5 Administered Medications: 15:05 Drug: NS 0.9% 1000 ml Route: IV; Rate: 1 bolus; Site: left hand; tw2 18:08 Drug: Rocephin - (cefTRIAXone) 2 grams Route: IVPB; Infused Over: 30 mins; Site: left tr5 antecubital; Outcome: 18:52 Discharge ordered by . wa 19:11 Discharged to home via wheelchair. tr5 19:11 Condition: stable 19:11 Discharge instructions given to patient, family, Instructed on discharge instructions, follow up and referral plans. medication usage, Demonstrated understanding of instructions, follow-up care, medications. 19:13 Patient left the ED. tr5 Signatures: Dispatcher [employer] EDMS Lissy Casey mr Aaron, Ana, community health education coordinator EKG Tat1 Molly May RN RN tw2 Yomi Kirkpatrick RN RN jl7 Ady Barnes MD MD wa Rodriguez, Tommie, RN RN tr5 Corrections: (The following items were deleted from the chart) 16:10 16:02 Report given to MORENO Mi tw2 tw2
[2019-06-28 19:22] VITALS: TEMP 98.3
[2019-06-28 19:26] VITALS: BP 120/65; O2SAT 100
--- NOTE | 2019-06-29 12:15 | EKG ---
Test Date: 2019-06-28 Test Time: 15:00:39 Customer Service Coordinator: SVITLANA MEASUREMENT RESULTS: Intervals: Rate: 64 IN: QRSD: 76 QT: 412 QTc: 425 [place]: P: IN: QRS: 0 T: 41 INTERPRETIVE STATEMENTS: Junctional rhythm Abnormal ECG Compared to ECG 06/04/2019 11:20:23 Junctional rhythm now present Sinus rhythm no longer present Short IN interval no longer present T-wave abnormality no longer present Electronically Signed On 06-29-19 12:09:45 CDT by Joe Molina
== END 2019-06-28 19:13 | disposition home or self-care (01) ==
LOC: ER 14:01
DX: N39.0 Urinary tract infection, site not specified (principal); R41.82 Altered mental status, unspecified; I10 Essential (primary) hypertension; E11.9 Type 2 diabetes mellitus without complications; E03.9 Hypothyroidism, unspecified; F17.210 Nicotine dependence, cigarettes, uncomplicated; Z79.82 Long term (current) use of aspirin; Z85.05 Personal history of malignant neoplasm of liver; Z85.038 Personal history of other malignant neoplasm of large intestine; Z91.048 Other nonmedicinal substance allergy status
CPT/HCPCS: 93005; 87088; 85025; 87086; 80048; 36415; 82140; 83735; 85610; 80076; 80307 ×8; 85730; 87077; 87186; 84484; 83690; 87804 ×2; 70450; 96374; 99285; J0696; J7030; 81003; 81015

== ENCOUNTER 2019-08-06 11:28 | Inpatient (IN) | payer OTHER ==
--- OUTSIDE RECORDS SUMMARY | 2019-08-06 11:32 | XMS REPORT ---
:1940 Author Organization [employer] Care Team Providers Name Role Phone Estrada Alfredo Provider Role Unavailable Allergies, Adverse Reactions, Alerts Substance Reaction Event Type N.K.D.A. Info Not Available Non Drug Allergy Problems Problem Type Condition Code Onset Dates Condition Status Assessment Pain in joint of left shoulder M25.512 Active Assessment Displaced comminuted fracture of S42.352A Active shaft of humerus, left arm, initial encounter for closed fracture Medications Medication Code System Code Instructions Start End Date Status Dosage Date Calcium Carbonate [facility] 97044-97 Active not defined [address] [facility] 47967-18 Active not defined 00-[address] [facility] 73016-13 Active not defined 29-[address] [facility] 22406-74 Active not defined 01-[address] [facility] 53181-97 Active not defined 08-01 atorvastatin ND 0 Active not defined Zofran [facility] 88925-36 Active not defined 89-00 clopidogrel NDC 0 Active not defined Multivitamin [facility] 49268-06 Active not defined Adults 50+ [address] [facility] 57645-38 Active not defined 61-[address] [facility] 91671-95 Active not defined Succinate 11-[address] [facility] 60048-52 Active not defined 01-[address] [facility] 41116-73 Active not defined 381 albuterol NDC 0 Active not defined Megestrol Acetate [facility] 26693-31 Active not defined 76-00 [place] [address]-56 Active not defined 01-05 Furosemide NDC 0 [place] [address]-22 Active not defined Oxalate 69-24 [place] [address]-67 Active not defined 21-41 Results No Known Results Summary Purpose [employer] Submission
--- OUTSIDE RECORDS SUMMARY | 2019-08-06 11:32 | XMS REPORT ---
:1940 Author Organization [employer] Care Team Providers Name Role Phone Alfredo Estrada Provider Role Unavailable Allergies No Known Allergies Problems Problem Type Condition Code Onset Dates Condition Status Problem Pain in joint of left shoulder M25.512 Active Problem Closed displaced comminuted S42.352D Active fracture of shaft of left humerus with routine healing, subsequent encounter Medications No Known Medications Results No Known Results Summary Purpose [employer] Submission
--- OUTSIDE RECORDS SUMMARY | 2019-08-06 11:32 | XMS REPORT ---
[...] Medications Results No Known Results Summary Purpose [employer] Submission
--- OUTSIDE RECORDS SUMMARY | 2019-08-06 11:32 | XMS REPORT ---
:1940 Author Organization [facility] Address [address] [place] [address] Care Team Providers Name Role Phone DELON [...] Reference Range Comments CALCIUM IONIZED (BEAKER) (test bbnd=181) 1.10 mmol/L 1.12-1.27 PH, BLOOD (BEAKER) (test hkbe=8453) 7.34 [id number] 05:52:00 Test Item Value Reference Range Comments PHOSPHORUS (BEAKER) (test xplq=975) 3.5 mg/dL 2.3-4.7 [id number] 05:52:00 Test Item Value Reference Range Comments MAGNESIUM (BEAKER) (test gbwo=969) 2.0 mg/dL 1.6-2.6 BASIC METABOLIC [id number] 05:52:00 Test Item Value Reference Range Comments SODIUM (BEAKER) (test 143 meq/L 136-145 bgfx=940) POTASSIUM (BEAKER) (test 3.8 meq/L 3.5-5.1 gezg=629) CHLORIDE (BEAKER) (test 109 meq/L 98-107 xymk=008) CO2 (BEAKER) (test 29 meq/L 22-29 xwsh=196) BLOOD UREA NITROGEN 22 mg/dL 7-21 (BEAKER) (test kiji=946) CREATININE (BEAKER) (test 0.96 mg/dL 0.57-1.25 jtnf=944) GLUCOSE RANDOM (BEAKER) 104 mg/dL 70-105 (test ojwg=674) CALCIUM (BEAKER) (test 8.5 mg/dL 8.4-10.2 ljud=819) EGFR (BEAKER) (test 56 mL/min/1.73 sq m ESTIMATED GFR IS NOT ekvs=8133) ACCURATE CREATININE CLEARANCE IN PREDICTING GLOMERULAR FILTRATION RATE. ESTIMATED GFR IS NOT APPLICABLE FOR DIALYSIS PATIENTS. CBC W/PLT COUNT & AUTO [id number] 05:28:00 Test Item Value Reference Range Comments WHITE BLOOD CELL COUNT (BEAKER) (test uekw=059) 10.4 K/ L 3.5-10.5 RED BLOOD CELL COUNT (BEAKER) (test vhlg=274) 2.75 M/ L 3.93-5.22 HEMOGLOBIN (BEAKER) (test rhfv=524) 8.3 GM/DL 11.2-15.7 HEMATOCRIT (BEAKER) (test pfdf=991) 26.2 % 34.1-44.9 MEAN CORPUSCULAR VOLUME (BEAKER) (test jcae=854) 95.3 fL 79.4-94.8 MEAN CORPUSCULAR HEMOGLOBIN (BEAKER) (test 30.2 pg 25.6-32.2 wcpf=089) MEAN CORPUSCULAR HEMOGLOBIN CONC (BEAKER) (test 31.7 GM/DL 32.2-35.5 leab=120) RED CELL DISTRIBUTION WIDTH (BEAKER) (test 15.6 % 11.7-14.4 eukj=144) PLATELET COUNT (BEAKER) (test kvhz=866) 213 K/CU MM 150-450 MEAN PLATELET VOLUME (BEAKER) (test tlch=548) 11.4 fL 9.4-12.3 NUCLEATED RED BLOOD CELLS (BEAKER) (test 0 /100 WBC 0-0 ddch=654) NEUTROPHILS RELATIVE PERCENT (BEAKER) (test 59 % gqtl=022) LYMPHOCYTES RELATIVE PERCENT (BEAKER) (test 22 % mejr=294) MONOCYTES RELATIVE PERCENT (BEAKER) (test 12 % wqrb=780) EOSINOPHILS RELATIVE PERCENT (BEAKER) (test 5 % qhoe=205) BASOPHILS RELATIVE PERCENT (BEAKER) (test 1 % lmnr=351) NEUTROPHILS ABSOLUTE COUNT (BEAKER) (test 6.17 K/ L 1.56-6.13 wliw=131) LYMPHOCYTES ABSOLUTE COUNT (BEAKER) (test 2.26 K/ L 1.18-3.74 tqkw=059) MONOCYTES ABSOLUTE COUNT (BEAKER) (test 1.26 K/ L 0.24-0.36 kspt=475) EOSINOPHILS ABSOLUTE COUNT (BEAKER) (test 0.52 K/ L 0.04-0.36 utkd=594) BASOPHILS ABSOLUTE COUNT (BEAKER) (test 0.05 K/ L 0.01-0.08 pxtg=657) IMMATURE GRANULOCYTES-RELATIVE PERCENT (BEAKER) 1 % 0-1 (test pmaq=8315) CALCIUM, [id number] 06:34:00 Test Item Value Reference Range Comments CALCIUM IONIZED (BEAKER) (test mzwq=442) 1.11 mmol/L 1.12-1.27 PH, BLOOD (BEAKER) (test agbx=1327) 7.41 [id number] 05:05:00 Test Item Value Reference Range Comments PHOSPHORUS (BEAKER) (test obbx=109) 2.9 mg/dL 2.3-4.7 [id number] 05:05:00 Test Item Value Reference Range Comments MAGNESIUM (BEAKER) (test pzjk=290) 1.9 mg/dL 1.6-2.6 BASIC METABOLIC [id number] 05:05:00 Test Item Value Reference Range Comments SODIUM (BEAKER) (test 142 meq/L 136-145 xcnh=710) POTASSIUM (BEAKER) (test 4.0 meq/L 3.5-5.1 jtpf=609) CHLORIDE (BEAKER) (test 107 meq/L 98-107 gcyx=235) CO2 (BEAKER) (test 30 meq/L 22-29 vhej=121) BLOOD UREA NITROGEN 19 mg/dL 7-21 (BEAKER) (test yjjc=048) CREATININE (BEAKER) (test 0.83 mg/dL 0.57-1.25 rlen=007) GLUCOSE RANDOM (BEAKER) 110 mg/dL 70-105 (test nnaj=220) CALCIUM (BEAKER) (test 8.5 mg/dL 8.4-10.2 maon=600) EGFR (BEAKER) (test 67 mL/min/1.73 sq m ESTIMATED GFR IS NOT gsxu=0540) ACCURATE CREATININE CLEARANCE IN PREDICTING GLOMERULAR FILTRATION RATE. ESTIMATED GFR IS NOT APPLICABLE FOR DIALYSIS PATIENTS. CBC W/PLT COUNT & AUTO [id number] 04:46:00 Test Item Value Reference Range Comments WHITE BLOOD CELL COUNT (BEAKER) (test lxhn=837) 9.6 K/ L 3.5-10.5 RED BLOOD CELL COUNT (BEAKER) (test vyfg=495) 2.90 M/ L 3.93-5.22 HEMOGLOBIN (BEAKER) (test wkxn=078) 8.6 GM/DL 11.2-15.7 HEMATOCRIT (BEAKER) (test twwd=803) 26.9 % 34.1-44.9 MEAN CORPUSCULAR VOLUME (BEAKER) (test padh=969) 92.8 fL 79.4-94.8 MEAN CORPUSCULAR HEMOGLOBIN (BEAKER) (test 29.7 pg 25.6-32.2 ugjg=324) MEAN CORPUSCULAR HEMOGLOBIN CONC (BEAKER) (test 32.0 GM/DL 32.2-35.5 edvn=196) RED CELL DISTRIBUTION WIDTH (BEAKER) (test 16.0 % 11.7-14.4 szdb=327) PLATELET COUNT (BEAKER) (test sjtc=306) 181 K/CU MM 150-450 MEAN PLATELET VOLUME (BEAKER) (test sczi=891) 11.4 fL 9.4-12.3 NUCLEATED RED BLOOD CELLS (BEAKER) (test 0 /100 WBC 0-0 psvz=980) NEUTROPHILS RELATIVE PERCENT (BEAKER) (test 69 % wqmi=684) LYMPHOCYTES RELATIVE PERCENT (BEAKER) (test 14 % xtcq=816) MONOCYTES RELATIVE PERCENT (BEAKER) (test 12 % xfta=118) EOSINOPHILS RELATIVE PERCENT (BEAKER) (test 5 % eiyq=517) BASOPHILS RELATIVE PERCENT (BEAKER) (test 0 % mztk=809) NEUTROPHILS ABSOLUTE COUNT (BEAKER) (test 6.59 K/ L 1.56-6.13 dqij=201) LYMPHOCYTES ABSOLUTE COUNT (BEAKER) (test 1.34 K/ L 1.18-3.74 xnmh=836) MONOCYTES ABSOLUTE COUNT (BEAKER) (test 1.11 K/ L 0.24-0.36 fbwp=926) EOSINOPHILS ABSOLUTE COUNT (BEAKER) (test 0.46 K/ L 0.04-0.36 nfqs=464) BASOPHILS ABSOLUTE COUNT (BEAKER) (test 0.03 K/ L 0.01-0.08 fivh=515) IMMATURE GRANULOCYTES-RELATIVE PERCENT (BEAKER) 1 % 0-1 (test dnrp=0967) RAD, CHEST, 1 VIEW, NON [id number] 09:05:00Reason for exam:->s/p surgery/ intubation/CTShould this be performed at the bedside?->YesFINAL REPORT Chest one view compared to May 25, 2017 Discussion : Right chest tube is removed. Left-sided drainage tubes remain. Ill-defined opacities both lung bases are similar. There may be a small right effusion. No pneumothorax. Signed: Franco Wilkinson Verified Date/Time: 05/26/2017 09: 05:29 Reading Location: [facility] Reading Room POCT- GLUCOSE [id number] 07:34:00 Test Item Value Reference Range Comments POC-GLUCOSE METER (BEAKER) 146 mg/dL 70-110 TESTED AT [address] (test uwao=1464) [facility] [address] POCT-GLUCOSE [id number] 07:34:00 Test Item Value Reference Range Comments POC-GLUCOSE METER (BEAKER) 130 mg/dL 70-110 TESTED AT [address] (test euja=8875) [facility] [address] VITAMIN B12 AND [id number] 07:15:00 Test Item Value Reference Range Comments VITAMIN B12 (BEAKER) (test gwso=208) 1074 pg/mL 213-816 FOLATE (BEAKER) (test jdor=097) 10.9 ng/mL >=7.0 [id number] 06:44:00 Test Item Value Reference Range Comments MAGNESIUM (BEAKER) (test pyrt=561) 2.4 mg/dL 1.6-2.6 BASIC METABOLIC [id number] 06:44:00 Test Item Value Reference Range Comments SODIUM (BEAKER) (test 139 meq/L 136-145 hxfh=928) POTASSIUM (BEAKER) (test 3.8 meq/L 3.5-5.1 mrgn=034) CHLORIDE (BEAKER) (test 106 meq/L 98-107 msyi=284) CO2 (BEAKER) (test 27 meq/L 22-29 lgpy=900) BLOOD UREA NITROGEN 14 mg/dL 7-21 (BEAKER) (test kxfy=079) CREATININE (BEAKER) (test 0.85 mg/dL 0.57-1.25 oeat=446) GLUCOSE RANDOM (BEAKER) 115 mg/dL 70-105 (test moek=419) CALCIUM (BEAKER) (test 8.1 mg/dL 8.4-10.2 qtmu=315) EGFR (BEAKER) (test 65 mL/min/1.73 sq m ESTIMATED GFR IS NOT jlea=9704) ACCURATE CREATININE CLEARANCE IN PREDICTING GLOMERULAR FILTRATION RATE. ESTIMATED GFR IS NOT APPLICABLE FOR DIALYSIS PATIENTS. CBC W/PLT COUNT & AUTO [id number] 06:15:00 Test Item Value Reference Range Comments WHITE BLOOD CELL COUNT (BEAKER) (test mzfd=165) 12.5 K/ L 3.5-10.5 RED BLOOD CELL COUNT (BEAKER) (test ojvz=568) 3.12 M/ L 3.93-5.22 HEMOGLOBIN (BEAKER) (test kbgr=400) 9.2 GM/DL 11.2-15.7 HEMATOCRIT (BEAKER) (test laqq=735) 29.0 % 34.1-44.9 MEAN CORPUSCULAR VOLUME (BEAKER) (test vket=309) 92.9 fL 79.4-94.8 MEAN CORPUSCULAR HEMOGLOBIN (BEAKER) (test 29.5 pg 25.6-32.2 dwjw=283) MEAN CORPUSCULAR HEMOGLOBIN CONC (BEAKER) (test 31.7 GM/DL 32.2-35.5 zxpd=642) RED CELL DISTRIBUTION WIDTH (BEAKER) (test 16.5 % 11.7-14.4 yplv=847) PLATELET COUNT (BEAKER) (test oegu=172) 143 K/CU MM 150-450 MEAN PLATELET VOLUME (BEAKER) (test ikmi=553) 11.5 fL 9.4-12.3 NUCLEATED RED BLOOD CELLS (BEAKER) (test 0 /100 WBC 0-0 pdnd=262) NEUTROPHILS RELATIVE PERCENT (BEAKER) (test 81 % izgv=755) LYMPHOCYTES RELATIVE PERCENT (BEAKER) (test 7 % yswv=364) MONOCYTES RELATIVE PERCENT (BEAKER) (test 9 % pige=346) EOSINOPHILS RELATIVE PERCENT (BEAKER) (test 2 % lpmg=410) BASOPHILS RELATIVE PERCENT (BEAKER) (test 0 % mdfr=418) NEUTROPHILS ABSOLUTE COUNT (BEAKER) (test 10.13 K/ L 1.56-6.13 oocr=383) LYMPHOCYTES ABSOLUTE COUNT (BEAKER) (test 0.87 K/ L 1.18-3.74 uebe=569) MONOCYTES ABSOLUTE COUNT (BEAKER) (test 1.15 K/ L 0.24-0.36 xozl=318) EOSINOPHILS ABSOLUTE COUNT (BEAKER) (test 0.25 K/ L 0.04-0.36 shaj=534) BASOPHILS ABSOLUTE COUNT (BEAKER) (test 0.04 K/ L 0.01-0.08 zqfj=908) IMMATURE GRANULOCYTES-RELATIVE PERCENT (BEAKER) 1 % 0-1 (test ewqv=9223) CALCIUM, [id number] 06:10:00 Test Item Value Reference Range Comments CALCIUM IONIZED (BEAKER) (test qxas=175) 1.07 mmol/L 1.12-1.27 PH, BLOOD (BEAKER) (test sijc=5601) 7.34 [id number] 17:12:00 Test Item Value Reference Range Comments POTASSIUM (BEAKER) (test ramd=602) 3.7 meq/L 3.5-5.1 [id number] 17:12:00 Test Item Value Reference Range Comments MAGNESIUM (BEAKER) (test xbnu=701) 1.9 mg/dL 1.6-2.6 RAD, CHEST, 1 VIEW, NON [id number] 09:40:00Reason for exam:->s/p surgery/ intubation/CTShould this be [...] MDReport Verified Date/Time: 05/25/2017 09:40:39 Reading Location: [facility] B1 C013V Neuro ReadingRoom BRONCHIAL CULTURE + GRAM [id number] 09:36:00 Test Item Value Reference Range Comments CULTURE (BEAKER) (test <1+ Normal respiratory eugenio dcfz=1335) present GRAM STAIN RESULT (BEAKER) 1+ WBCs (test tcgr=1327) GRAM STAIN RESULT (BEAKER) No organisms seen (test ztnf=06921) SPUTUM CULTURE + GRAM [id number] 09:18:00 Test Item Value Reference Range Comments CULTURE (BEAKER) (test 2+ Normal respiratory eugenio nlmm=5807) present GRAM STAIN RESULT (BEAKER) 3+ WBCs (test otxo=5875) GRAM STAIN RESULT (BEAKER) 0-5 epithelial cells (test dvmz=36441) GRAM STAIN RESULT (BEAKER) <1+ gram positive cocci in pairs (test ranf=40014) CALCIUM, [id number] 04:00:00 Test Item Value Reference Range Comments CALCIUM IONIZED (BEAKER) (test cacx=503) 1.10 mmol/L 1.12-1.27 PH, BLOOD (BEAKER) (test yvru=1248) 7.36 OXYGEN SATURATION, [id number] 03:59:00 Test Item Value Reference Range Comments O2 SATURATION (MEASURED) (BEAKER) (test wubd=1338) 67.2 % BASIC METABOLIC [id number] 03:53:00 Test Item Value Reference Range Comments SODIUM (BEAKER) (test 139 meq/L 136-145 scjg=714) POTASSIUM (BEAKER) (test 4.0 meq/L 3.5-5.1 zkjt=994) CHLORIDE (BEAKER) (test 111 meq/L 98-107 aezj=241) CO2 (BEAKER) (test 23 meq/L 22-29 jzeb=023) BLOOD UREA NITROGEN 15 mg/dL 7-21 (BEAKER) (test qabe=159) CREATININE (BEAKER) (test 0.81 mg/dL 0.57-1.25 lnor=413) GLUCOSE RANDOM (BEAKER) 114 mg/dL 70-105 (test yaop=867) CALCIUM (BEAKER) (test 7.7 mg/dL 8.4-10.2 yszh=048) EGFR (BEAKER) (test 69 mL/min/1.73 sq m ESTIMATED GFR IS NOT enle=2380) ACCURATE CREATININE CLEARANCE IN PREDICTING GLOMERULAR FILTRATION RATE. ESTIMATED GFR IS NOT APPLICABLE FOR DIALYSIS PATIENTS. [id number] 03:51:00 Test Item Value Reference Range Comments PHOSPHORUS (BEAKER) (test isqz=855) 2.7 mg/dL 2.3-4.7 [id number] 03:51:00 Test Item Value Reference Range Comments MAGNESIUM (BEAKER) (test ecvs=935) 2.1 mg/dL 1.6-2.6 CBC W/PLT COUNT & AUTO [id number] 03:33:00 Test Item Value Reference Range Comments WHITE BLOOD CELL COUNT (BEAKER) (test john=034) 10.3 K/ L 3.5-10.5 RED BLOOD CELL COUNT (BEAKER) (test brgk=175) 2.67 M/ L 3.93-5.22 HEMOGLOBIN (BEAKER) (test etkw=337) 8.0 GM/DL 11.2-15.7 HEMATOCRIT (BEAKER) (test rtqj=588) 24.2 % 34.1-44.9 MEAN CORPUSCULAR VOLUME (BEAKER) (test kgbx=146) 90.6 fL 79.4-94.8 MEAN CORPUSCULAR HEMOGLOBIN (BEAKER) (test 30.0 pg 25.6-32.2 csyw=678) MEAN CORPUSCULAR HEMOGLOBIN CONC (BEAKER) (test 33.1 GM/DL 32.2-35.5 lumx=566) RED CELL DISTRIBUTION WIDTH (BEAKER) (test 17.1 % 11.7-14.4 miqs=939) PLATELET COUNT (BEAKER) (test dgjy=683) 112 K/CU MM 150-450 MEAN PLATELET VOLUME (BEAKER) (test ihlp=621) 11.0 fL 9.4-12.3 NUCLEATED RED BLOOD CELLS (BEAKER) (test 0 /100 WBC 0-0 musz=374) NEUTROPHILS RELATIVE PERCENT (BEAKER) (test 76 % xbza=202) LYMPHOCYTES RELATIVE PERCENT (BEAKER) (test 12 % ectl=646) MONOCYTES RELATIVE PERCENT (BEAKER) (test 10 % raeq=802) EOSINOPHILS RELATIVE PERCENT (BEAKER) (test 2 % jlsf=252) BASOPHILS RELATIVE PERCENT (BEAKER) (test 0 % kysv=731) NEUTROPHILS ABSOLUTE COUNT (BEAKER) (test 7.84 K/ L 1.56-6.13 riiw=505) LYMPHOCYTES ABSOLUTE COUNT (BEAKER) (test 1.25 K/ L 1.18-3.74 rrhv=978) MONOCYTES ABSOLUTE COUNT (BEAKER) (test 1.03 K/ L 0.24-0.36 fpnr=538) EOSINOPHILS ABSOLUTE COUNT (BEAKER) (test 0.16 K/ L 0.04-0.36 kinm=899) BASOPHILS ABSOLUTE COUNT (BEAKER) (test 0.02 K/ L 0.01-0.08 hblq=809) IMMATURE GRANULOCYTES-RELATIVE PERCENT (BEAKER) 0 % 0-1 (test qqkl=7791) RAD, CHEST, 1 VIEW, NON [id number] 07:24:00Reason for exam:->s/p surgery/ intubation/CTShould this be performed at the bedside?->YesFINAL REPORT Chest, one view. HISTORY: Postop COMPARISON: 05/23/2017 IMPRESSION: Supporting hardware unchanged in position. No pneumothorax. Trace left pleural effusion. Mild interstitial edema. Unchanged enlargement of the cardiomediastinal silhouette. Mild left basilar atelectasis. Signed: Roberto Arreola Verified Date/Time: 05/24/2017 07:24:37 Reading Location: [address] Body Reading Room LACTIC ACID, ARTERIAL, WHOLE [id number] 05:44:00 Test Item Value Reference Range Comments LACTATE BLOOD ARTERIAL (2) (BEAKER) (test 1.8 mmol/L 0.5-2.2 wydj=0378) Effective 01/10/2016: Units/Reference Range ChangeNew: 0.5-2.2 mmol/L Previous: 5 -20 mg/dLBASIC METABOLIC [id number] 05:42:00 Test Item Value Reference Range Comments SODIUM (BEAKER) (test 142 meq/L 136-145 rkkq=382) POTASSIUM (BEAKER) (test 4.9 meq/L 3.5-5.1 evii=404) CHLORIDE (BEAKER) (test 116 meq/L 98-107 bdym=754) CO2 (BEAKER) (test 20 meq/L 22-29 ctui=637) BLOOD UREA NITROGEN 21 mg/dL 7-21 (BEAKER) (test ihwe=919) CREATININE (BEAKER) (test 1.05 mg/dL 0.57-1.25 gwlo=279) GLUCOSE RANDOM (BEAKER) 140 mg/dL 70-105 (test bbbx=803) CALCIUM (BEAKER) (test 7.4 mg/dL 8.4-10.2 ujjx=773) EGFR (BEAKER) (test 51 mL/min/1.73 sq m ESTIMATED GFR IS NOT imdf=9335) ACCURATE CREATININE CLEARANCE IN PREDICTING GLOMERULAR FILTRATION RATE. ESTIMATED GFR IS NOT APPLICABLE FOR DIALYSIS PATIENTS. BLOOD GAS, [id number] 05:34:00 Test Item Value Reference Range Comments PH ARTERIAL (BEAKER) (test qdhn=137) 7.33 7.35-7.45 PCO2 ARTERIAL (BEAKER) (test lmhu=861) 41 mmHg 35-45 PO2 ARTERIAL (BEAKER) (test khsk=185) 102 mmHg 80-90 O2 SATURATION ARTERIAL (BEAKER) (test bequ=220) 97.3 % 96.0-97.0 HCO3 ARTERIAL (BEAKER) (test jzdw=835) 21 mmol/L 21-29 BASE EXCESS ARTERIAL (BEAKER) (test ilrl=011) -4.3 mmol/L -2.0-3.0 PATIENT TEMPERATURE (BEAKER) (test tdzr=5744) 37.0 C [id number] 05:28:00 Test Item Value Reference Range Comments PHOSPHORUS (BEAKER) (test uvfp=742) 4.7 mg/dL 2.3-4.7 [id number] 05:28:00 Test Item Value Reference Range Comments MAGNESIUM (BEAKER) (test nyyz=985) 2.3 mg/dL 1.6-2.6 OXYGEN SATURATION, [id number] 05:13:00 Test Item Value Reference Range Comments O2 SATURATION (MEASURED) (BEAKER) (test uzmt=6673) 66.1 % CALCIUM, [id number] 05:13:00 Test Item Value Reference Range Comments CALCIUM IONIZED (BEAKER) (test teep=670) 1.08 mmol/L 1.12-1.27 PH, BLOOD (BEAKER) (test daci=4840) 7.29 CBC W/PLT COUNT & AUTO [id number] 05:11:00 Test Item Value Reference Range Comments WHITE BLOOD CELL COUNT (BEAKER) (test mjfu=763) 9.6 K/ L 3.5-10.5 RED BLOOD CELL COUNT (BEAKER) (test aylf=874) 2.92 M/ L 3.93-5.22 HEMOGLOBIN (BEAKER) (test eafw=106) 8.6 GM/DL 11.2-15.7 HEMATOCRIT (BEAKER) (test mtmd=321) 26.2 % 34.1-44.9 MEAN CORPUSCULAR VOLUME (BEAKER) (test ozzz=921) 89.7 fL 79.4-94.8 MEAN CORPUSCULAR HEMOGLOBIN (BEAKER) (test 29.5 pg 25.6-32.2 oomj=782) MEAN CORPUSCULAR HEMOGLOBIN CONC (BEAKER) (test 32.8 GM/DL 32.2-35.5 tfhq=245) RED CELL DISTRIBUTION WIDTH (BEAKER) (test 16.3 % 11.7-14.4 ufkh=096) PLATELET COUNT (BEAKER) (test vrso=860) 140 K/CU MM 150-450 MEAN PLATELET VOLUME (BEAKER) (test soxn=753) 10.3 fL 9.4-12.3 NUCLEATED RED BLOOD CELLS (BEAKER) (test 0 /100 WBC 0-0 rbha=543) NEUTROPHILS RELATIVE PERCENT (BEAKER) (test 78 % aiuz=273) LYMPHOCYTES RELATIVE PERCENT (BEAKER) (test 9 % tsbe=133) MONOCYTES RELATIVE PERCENT (BEAKER) (test 12 % fkhd=912) EOSINOPHILS RELATIVE PERCENT (BEAKER) (test 0 % ganp=766) BASOPHILS RELATIVE PERCENT (BEAKER) (test 0 % zfmu=830) NEUTROPHILS ABSOLUTE COUNT (BEAKER) (test 7.53 K/ L 1.56-6.13 vwkj=548) LYMPHOCYTES ABSOLUTE COUNT (BEAKER) (test 0.86 K/ L 1.18-3.74 gvsh=262) MONOCYTES ABSOLUTE COUNT (BEAKER) (test 1.14 K/ L 0.24-0.36 fwls=377) EOSINOPHILS ABSOLUTE COUNT (BEAKER) (test 0.02 K/ L 0.04-0.36 axou=326) BASOPHILS ABSOLUTE COUNT (BEAKER) (test 0.03 K/ L 0.01-0.08 yfma=218) IMMATURE GRANULOCYTES-RELATIVE PERCENT (BEAKER) 1 % 0-1 (test fxdx=7464) BLOOD GAS, [id number] 23:38:00 Test Item Value Reference Range Comments PH ARTERIAL (BEAKER) (test jofv=616) 7.34 7.35-7.45 PCO2 ARTERIAL (BEAKER) (test jjsr=972) 43 mmHg 35-45 PO2 ARTERIAL (BEAKER) (test hfzw=588) 98 mmHg 80-90 O2 SATURATION ARTERIAL (BEAKER) (test ooob=960) 96.6 % 96.0-97.0 HCO3 ARTERIAL (BEAKER) (test zkmr=378) 22 mmol/L 21-29 BASE EXCESS ARTERIAL (BEAKER) (test jfet=186) -2.8 mmol/L -2.0-3.0 PATIENT TEMPERATURE (BEAKER) (test lxzf=0270) 38.5 C FIO2 (BEAKER) (test enmd=3202) 40.0 % HEMOGLOBIN AND [id number] 23:38:00 Test Item Value Reference Range Comments HEMOGLOBIN (BEAKER) (test pbaj=087) 7.6 g/dL 12.0-15.0 HEMATOCRIT (BEAKER) (test rbfa=817) 22.0 % 36.0-45.0 Done at stat lab.BLOOD GAS, [id number] 16:58:00 Test Item Value Reference Range Comments PH ARTERIAL (BEAKER) (test trnx=127) 7.36 7.35-7.45 PCO2 ARTERIAL (BEAKER) (test rsnn=153) 38 mmHg 35-45 PO2 ARTERIAL (BEAKER) (test neis=234) 103 mmHg 80-90 O2 SATURATION ARTERIAL (BEAKER) (test govc=832) 97.5 % 96.0-97.0 HCO3 ARTERIAL (BEAKER) (test httd=428) 21 mmol/L 21-29 BASE EXCESS ARTERIAL (BEAKER) (test mhiu=506) -4.5 mmol/L -2.0-3.0 PATIENT TEMPERATURE (BEAKER) (test tseo=4576) 37.0 C FIO2 (BEAKER) (test xfsm=1363) 50.0 % GLUCOSE-STAT [id number] 16:58:00 Test Item Value Reference Range Comments GLUCOSE RANDOM (BEAKER) (test euru=799) 168 mg/dL 70-110 BLOOD GAS, [id number] 16:24:00 Test Item Value Reference Range Comments PH ARTERIAL (BEAKER) (test zhjm=072) 7.34 7.35-7.45 PCO2 ARTERIAL (BEAKER) (test trtg=559) 40 mmHg 35-45 PO2 ARTERIAL (BEAKER) (test vfuu=080) 39 mmHg 80-90 O2 SATURATION ARTERIAL (BEAKER) (test lvhb=238) 72.7 % 96.0-97.0 HCO3 ARTERIAL (BEAKER) (test yikd=563) 21 mmol/L 21-29 BASE EXCESS ARTERIAL (BEAKER) (test movv=929) -4.5 mmol/L -2.0-3.0 PATIENT TEMPERATURE (BEAKER) (test eunz=2513) 36.4 C FIO2 (BEAKER) (test bmal=6911) 40.0 % CBC W/PLT COUNT & AUTO [id number] 15:55:00 Test Item Value Reference Range Comments WHITE BLOOD CELL COUNT 17.4 K/ L 3.5-10.5 (BEAKER) (test xqey=712) RED BLOOD CELL COUNT (BEAKER) 2.94 M/ L 3.93-5.22 (test ndlf=137) HEMOGLOBIN (BEAKER) (test 8.8 GM/DL 11.2-15.7 uznr=259) HEMATOCRIT (BEAKER) (test 26.4 % 34.1-44.9 eflf=298) MEAN CORPUSCULAR VOLUME 89.8 fL 79.4-94.8 Discordant result compared (BEAKER) (test oiul=303) to previous result; clinical correlation required. MEAN CORPUSCULAR HEMOGLOBIN 29.9 pg 25.6-32.2 (BEAKER) (test swqn=955) MEAN CORPUSCULAR HEMOGLOBIN 33.3 GM/DL 32.2-35.5 CONC (BEAKER) (test glpr=111) RED CELL DISTRIBUTION WIDTH 15.8 % 11.7-14.4 (BEAKER) (test qzhb=466) PLATELET COUNT (BEAKER) (test 167 K/CU MM 150-450 kniz=351) MEAN PLATELET VOLUME (BEAKER) 9.1 fL 9.4-12.3 (test elba=790) NUCLEATED RED BLOOD CELLS 0 /100 WBC 0-0 (BEAKER) (test ekhp=138) NEUTROPHILS RELATIVE PERCENT 83 % (BEAKER) (test lhcq=875) LYMPHOCYTES RELATIVE PERCENT 10 % (BEAKER) (test advs=466) MONOCYTES RELATIVE PERCENT 5 % (BEAKER) (test uwea=133) EOSINOPHILS RELATIVE PERCENT 0 % (BEAKER) (test qzhp=318) BASOPHILS RELATIVE PERCENT 0 % (BEAKER) (test mrnd=747) NEUTROPHILS ABSOLUTE COUNT 14.43 K/ L 1.56-6.13 (BEAKER) (test hzww=015) LYMPHOCYTES ABSOLUTE COUNT 1.78 K/ L 1.18-3.74 (BEAKER) (test czaa=356) MONOCYTES ABSOLUTE COUNT 0.91 K/ L 0.24-0.36 (BEAKER) (test ybkn=070) EOSINOPHILS ABSOLUTE COUNT 0.05 K/ L 0.04-0.36 (BEAKER) (test yuqk=967) BASOPHILS ABSOLUTE COUNT 0.03 K/ L 0.01-0.08 (BEAKER) (test fwiw=552) IMMATURE 1 % 0-1 GRANULOCYTES-RELATIVE PERCENT (BEAKER) (test zdov=3659) RAD, CHEST, 1 VIEW, NON [id number] 15:35:00Reason for exam:->immediate post cardiothoracic surgery/intubationShould this [...] Wilkinson Verified Date/Time: 05/23/2017 15:35:23 Reading Location: [facility] C0[facility] Consult Reading Room THROMBOELASTOGRAPH (TEG)2017-05-23 15:00:00 Test Item Value Reference Range Comments TEG ACTIVATED CLOTTING TIME (BEAKER) (test 5.6 minutes 4.0-7.0 fwar=4505) TEG FIBRINOGEN ACTIVITY (BEAKER) (test 70.5 degrees 61.0-73.0 mrkb=8540) TEG PLT. AGGREGATION (BEAKER) (test moin=6847) 46.6 MM 55.0-65.0 TEG FIBRINOLYSIS (BEAKER) (test hizz=0339) 22.6 % 0.0-5.0 TGH ACTIVATED CLOTTING TIME (BEAKER) (test 6.2 minutes 4.0-7.0 trhj=5692) TGH FIBRINOGEN ACTIVITY (BEAKER) (test 72.7 degrees 61.0-73.0 cacy=9363) TGH PLT. AGGREGATION (BEAKER) (test hftu=2836) 63.0 MM 55.0-65.0 TGH FIBRINOLYSIS (BEAKER) (test awhx=6222) 0.0 % 0.0-5.0 BASIC METABOLIC [id number] 14:05:00 Test Item Value Reference Range Comments SODIUM (BEAKER) (test 142 meq/L 136-145 sqdl=472) POTASSIUM (BEAKER) (test 4.4 meq/L 3.5-5.1 Specimen slightly ocjz=933) hemolyzed CHLORIDE (BEAKER) (test 114 meq/L 98-107 rndl=170) CO2 (BEAKER) (test 21 meq/L 22-29 majl=802) BLOOD UREA NITROGEN 19 mg/dL 7-21 (BEAKER) (test oxtq=468) CREATININE (BEAKER) (test 0.86 mg/dL 0.57-1.25 Specimen slightly bych=298) hemolyzed GLUCOSE RANDOM (BEAKER) 107 mg/dL 70-105 (test ylhy=624) CALCIUM (BEAKER) (test 8.4 mg/dL 8.4-10.2 umvz=988) EGFR (BEAKER) (test 64 mL/min/1.73 sq m ESTIMATED GFR IS NOT khna=0013) ACCURATE CREATININE CLEARANCE IN PREDICTING GLOMERULAR FILTRATION RATE. ESTIMATED GFR IS NOT APPLICABLE FOR DIALYSIS PATIENTS. LACTIC ACID, ARTERIAL, WHOLE [id number] 14:01:00 Test Item Value Reference Range Comments LACTATE BLOOD ARTERIAL (2) 2.1 mmol/L 0.5-2.2 Specimen slightly hemolyzed (BEAKER) (test ovuk=3151) Effective 01/10/2016: Units/Reference Range ChangeNew: 0.5-2.2 mmol/L Previous: 5 -20 mg/dLGLUCOSE-STAT [id number] 13:42:00 Test Item Value Reference Range Comments GLUCOSE RANDOM (BEAKER) (test efdo=554) 105 mg/dL 70-110 SODIUM NA-STAT [id number] 13:42:00 Test Item Value Reference Range Comments SODIUM (BEAKER) (test yief=791) 137 meq/L 135-148 POTASSIUM-STAT [id number] 13:42:00 Test Item Value Reference Range Comments POTASSIUM (BEAKER) (test xyeu=690) 4.2 meq/L 3.6-5.5 BLOOD GAS, [id number] 13:42:00 Test Item Value Reference Range Comments PH ARTERIAL (BEAKER) (test ifyk=628) 7.41 7.35-7.45 PCO2 ARTERIAL (BEAKER) (test alzo=061) 33 mmHg 35-45 PO2 ARTERIAL (BEAKER) (test gkzj=969) 53 mmHg 80-90 O2 SATURATION ARTERIAL (BEAKER) (test tuyr=423) 91.8 % 96.0-97.0 HCO3 ARTERIAL (BEAKER) (test ydmx=046) 21 mmol/L 21-29 BASE EXCESS ARTERIAL (BEAKER) (test xsrr=747) -3.7 mmol/L -2.0-3.0 PATIENT TEMPERATURE (BEAKER) (test msxt=3200) 34.4 C FIO2 (BEAKER) (test fcon=2082) 60.0 % HGB/HCT (H&H) - STAT [id number] 13:42:00 Test Item Value Reference Range Comments HEMOGLOBIN (BEAKER) (test pnsd=465) 9.1 g/dL 12.0-15.0 HEMATOCRIT (BEAKER) (test egmv=510) 27.0 % 36.0-45.0 CALCIUM, [id number] 13:42:00 Test Item Value Reference Range Comments CALCIUM IONIZED (BEAKER) (test bort=124) 1.17 mmol/L 1.12-1.27 PH, BLOOD (BEAKER) (test qrmo=1409) 7.37 OXYGEN SATURATION, [id number] 13:41:00 Test Item Value Reference Range Comments O2 SATURATION (MEASURED) (BEAKER) (test wjna=6041) 53.2 % [id number] 13:02:00 Test Item Value Reference Range Comments ACTIVATED CLOTTING TIME 109 sec TESTED AT [place] [address] [place] (BEAKER) (test edkm=286) [place] [address] [id number] 13:02:00 Test Item Value Reference Range Comments ACTIVATED CLOTTING TIME 543 sec TESTED AT [place] [address] [place] (BEAKER) (test qjok=501) [place] [address] [id number] 13:02:00 Test Item Value Reference Range Comments ACTIVATED CLOTTING TIME 477 sec TESTED AT [place] [address] [place] (BEAKER) (test sjoo=370) [place] [address] [id number] 13:02:00 Test Item Value Reference Range Comments ACTIVATED CLOTTING TIME 538 sec TESTED AT [place] [address] [place] (BEAKER) (test imwj=076) [place] [address] [id number] 13:02:00 Test Item Value Reference Range Comments ACTIVATED CLOTTING TIME 610 sec TESTED AT [place] [address] [place] (BEAKER) (test abhp=826) [place] [address] [id number] 13:02:00 Test Item Value Reference Range Comments ACTIVATED CLOTTING TIME 367 sec TESTED AT [place] [address] [place] (BEAKER) (test bmxe=602) [place] [address] [id number] 13:02:00 Test Item Value Reference Range Comments ACTIVATED CLOTTING TIME 516 sec TESTED AT [address] (BEAKER) (test epul=035) [place] [address] BLOOD GAS, [id number] 12:22:00 Test Item Value Reference Range Comments PH ARTERIAL (BEAKER) (test qfoq=203) 7.29 7.35-7.45 PCO2 ARTERIAL (BEAKER) (test acvy=889) 42 mmHg 35-45 PO2 ARTERIAL (BEAKER) (test vtey=753) 138 mmHg 80-90 O2 SATURATION ARTERIAL (BEAKER) (test uqdx=902) 98.6 % 96.0-97.0 HCO3 ARTERIAL (BEAKER) (test ifdf=171) 20 mmol/L 21-29 BASE EXCESS ARTERIAL (BEAKER) (test gnhu=138) -6.6 mmol/L -2.0-3.0 PATIENT TEMPERATURE (BEAKER) (test jjif=3360) 35.3 C FIO2 (BEAKER) (test khng=6030) 100.0 % GLUCOSE-STAT [id number] 12:22:00 Test Item Value Reference Range Comments GLUCOSE RANDOM (BEAKER) (test iysw=579) 141 mg/dL 70-110 HGB/HCT (H&H) - STAT [id number] 12:22:00 Test Item Value Reference Range Comments HEMOGLOBIN (BEAKER) (test jepy=895) 8.6 g/dL 12.0-15.0 HEMATOCRIT (BEAKER) (test ecni=995) 25.0 % 36.0-45.0 SODIUM NA-STAT [id number] 12:19:00 Test Item Value Reference Range Comments SODIUM (BEAKER) (test wwmh=680) 137 meq/L 135-148 POTASSIUM-STAT [id number] 12:19:00 Test Item Value Reference Range Comments POTASSIUM (BEAKER) (test cyak=652) 4.5 meq/L 3.6-5.5 SODIUM NA-STAT [id number] 11:50:00 Test Item Value Reference Range Comments SODIUM (BEAKER) (test qqhz=445) 135 meq/L 135-148 POTASSIUM-STAT [id number] 11:50:00 Test Item Value Reference Range Comments POTASSIUM (BEAKER) (test ikbv=780) 5.1 meq/L 3.6-5.5 BLOOD GAS, [id number] 11:50:00 Test Item Value Reference Range Comments PH ARTERIAL (BEAKER) (test lfun=126) 7.33 7.35-7.45 PCO2 ARTERIAL (BEAKER) (test ovnv=879) 41 mmHg 35-45 PO2 ARTERIAL (BEAKER) (test ayzv=877) 124 mmHg 80-90 O2 SATURATION ARTERIAL (BEAKER) (test slsx=924) 98.3 % 96.0-97.0 HCO3 ARTERIAL (BEAKER) (test hcgh=589) 21 mmol/L 21-29 BASE EXCESS ARTERIAL (BEAKER) (test mkde=068) -4.6 mmol/L -2.0-3.0 PATIENT TEMPERATURE (BEAKER) (test cqoo=7562) 36.0 C FIO2 (BEAKER) (test wtxo=8428) 100.0 % GLUCOSE-STAT [id number] 11:50:00 Test Item Value Reference Range Comments GLUCOSE RANDOM (BEAKER) (test dlhf=566) 131 mg/dL 70-110 HGB/HCT (H&H) - STAT [id number] 11:50:00 Test Item Value Reference Range Comments HEMOGLOBIN (BEAKER) (test zxju=133) 6.7 g/dL 12.0-15.0 HEMATOCRIT (BEAKER) (test kzwx=202) 20.0 % 36.0-45.0 CALCIUM, [id number] 11:50:00 Test Item Value Reference Range Comments CALCIUM IONIZED (BEAKER) (test amoa=318) 1.19 mmol/L 1.12-1.27 PH, BLOOD (BEAKER) (test emwb=2825) 7.32 BLOOD GAS, [id number] 11:13:00 Test Item Value Reference Range Comments PH ARTERIAL (BEAKER) (test fdtv=923) 7.37 7.35-7.45 PCO2 ARTERIAL (BEAKER) (test uurd=972) 40 mmHg 35-45 PO2 ARTERIAL (BEAKER) (test gnkb=373) 332 mmHg 80-90 O2 SATURATION ARTERIAL (BEAKER) (test apws=518) 99.7 % 96.0-97.0 HCO3 ARTERIAL (BEAKER) (test mjts=430) 23 mmol/L 21-29 BASE EXCESS ARTERIAL (BEAKER) (test arpm=580) -2.0 mmol/L -2.0-3.0 PATIENT TEMPERATURE (BEAKER) (test esju=9043) 36.5 C FIO2 (BEAKER) (test qbqi=8274) 70.0 % GLUCOSE-STAT [id number] 11:13:00 Test Item Value Reference Range Comments GLUCOSE RANDOM (BEAKER) (test uujq=406) 142 mg/dL 70-110 HGB/HCT (H&H) - STAT [id number] 11:13:00 Test Item Value Reference Range Comments HEMOGLOBIN (BEAKER) (test qacm=037) 6.7 g/dL 12.0-15.0 HEMATOCRIT (BEAKER) (test udvh=096) 20.0 % 36.0-45.0 POTASSIUM-STAT [id number] 11:13:00 Test Item Value Reference Range Comments POTASSIUM (BEAKER) (test rgqk=580) 6.0 meq/L 3.6-5.5 SODIUM NA-STAT [id number] 11:12:00 Test Item Value Reference Range Comments SODIUM (BEAKER) (test cqes=438) 135 meq/L 135-148 POTASSIUM-STAT [id number] 10:57:00 Test Item Value Reference Range Comments POTASSIUM (BEAKER) (test zrfi=038) 5.5 meq/L 3.6-5.5 BLOOD GAS, [id number] 10:57:00 Test Item Value Reference Range Comments PH ARTERIAL (BEAKER) (test ogda=117) 7.35 7.35-7.45 PCO2 ARTERIAL (BEAKER) (test mmaj=556) 42 mmHg 35-45 PO2 ARTERIAL (BEAKER) (test rswc=585) 375 mmHg 80-90 O2 SATURATION ARTERIAL (BEAKER) (test xjja=665) 99.8 % 96.0-97.0 HCO3 ARTERIAL (BEAKER) (test ituc=218) 23 mmol/L 21-29 BASE EXCESS ARTERIAL (BEAKER) (test ubyi=661) -2.8 mmol/L -2.0-3.0 PATIENT TEMPERATURE (BEAKER) (test zzzj=9667) 36.5 C FIO2 (BEAKER) (test issn=4359) 70.0 % SODIUM NA-STAT [id number] 10:57:00 Test Item Value Reference Range Comments SODIUM (BEAKER) (test pxxx=640) 134 meq/L 135-148 GLUCOSE-STAT [id number] 10:57:00 Test Item Value Reference Range Comments GLUCOSE RANDOM (BEAKER) (test vvsp=900) 153 mg/dL 70-110 HGB/HCT (H&H) - STAT [id number] 10:57:00 Test Item Value Reference Range Comments HEMOGLOBIN (BEAKER) (test vhja=743) 7.3 g/dL 12.0-15.0 HEMATOCRIT (BEAKER) (test fdss=311) 21.0 % 36.0-45.0 BLOOD GAS, [id number] 10:31:00 Test Item Value Reference Range Comments PH ARTERIAL (BEAKER) (test leru=120) 7.48 7.35-7.45 PCO2 ARTERIAL (BEAKER) (test qwnx=559) 33 mmHg 35-45 PO2 ARTERIAL (BEAKER) (test srnx=281) 324 mmHg 80-90 O2 SATURATION ARTERIAL (BEAKER) (test aspx=557) 99.8 % 96.0-97.0 HCO3 ARTERIAL (BEAKER) (test xpvv=331) 25 mmol/L 21-29 BASE EXCESS ARTERIAL (BEAKER) (test fkpz=922) 0.5 mmol/L -2.0-3.0 PATIENT TEMPERATURE (BEAKER) (test eqnc=3708) 34.2 C FIO2 (BEAKER) (test cwhc=8558) 70.0 % SODIUM NA-STAT [id number] 10:31:00 Test Item Value Reference Range Comments SODIUM (BEAKER) (test hluq=546) 134 meq/L 135-148 POTASSIUM-STAT [id number] 10:31:00 Test Item Value Reference Range Comments POTASSIUM (BEAKER) (test tmih=326) 5.6 meq/L 3.6-5.5 GLUCOSE-STAT [id number] 10:31:00 Test Item Value Reference Range Comments GLUCOSE RANDOM (BEAKER) (test xnox=190) 166 mg/dL 70-110 HGB/HCT (H&H) - STAT [id number] 10:31:00 Test Item Value Reference Range Comments HEMOGLOBIN (BEAKER) (test bfhu=933) 6.5 g/dL 12.0-15.0 HEMATOCRIT (BEAKER) (test yizv=259) 19.0 % 36.0-45.0 BLOOD GAS, [id number] 10:06:00 Test Item Value Reference Range Comments PH VENOUS (BEAKER) (test trhh=245) 7.32 7.32-7.42 PCO2 VENOUS (BEAKER) (test mmwi=992) 44 mmHg 41-51 PO2 VENOUS (BEAKER) (test jmlp=247) 41 mmHg 25-40 O2 SATURATION VENOUS (BEAKER) (test bymt=859) 80.5 % 40.0-70.0 HCO3 VENOUS (BEAKER) (test pkhq=101) 23 mmol/L 21-29 BASE EXCESS VENOUS (BEAKER) (test ejot=777) -3.6 mmol/L -2.0-3.0 PATIENT TEMPERATURE (BEAKER) (test kyaj=0109) 34.0 C FIO2 (BEAKER) (test vfqx=3273) 80.0 % BLOOD GAS, [id number] 10:06:00 Test Item Value Reference Range Comments PH ARTERIAL (BEAKER) (test pqxb=136) 7.38 7.35-7.45 PCO2 ARTERIAL (BEAKER) (test vmlg=791) 35 mmHg 35-45 PO2 ARTERIAL (BEAKER) (test wgdg=206) 548 mmHg 80-90 O2 SATURATION ARTERIAL (BEAKER) (test nzts=822) 99.9 % 96.0-97.0 HCO3 ARTERIAL (BEAKER) (test lryn=205) 21 mmol/L 21-29 BASE EXCESS ARTERIAL (BEAKER) (test ffxt=984) -4.5 mmol/L -2.0-3.0 PATIENT TEMPERATURE (BEAKER) (test meyr=4921) 34.0 C FIO2 (BEAKER) (test nblc=7505) 80.0 % SODIUM NA-STAT [id number] 10:06:00 Test Item Value Reference Range Comments SODIUM (BEAKER) (test xrlu=594) 131 meq/L 135-148 HGB/HCT (H&H) - STAT [id number] 10:06:00 Test Item Value Reference Range Comments HEMOGLOBIN (BEAKER) (test yjfq=148) 5.3 g/dL 12.0-15.0 HEMATOCRIT (BEAKER) (test olew=301) 16.0 % 36.0-45.0 POTASSIUM-STAT [id number] 10:05:00 Test Item Value Reference Range Comments POTASSIUM (BEAKER) (test iqoy=689) 4.5 meq/L 3.6-5.5 GLUCOSE-STAT [id number] 10:05:00 Test Item Value Reference Range Comments GLUCOSE RANDOM (BEAKER) (test yvce=651) 169 mg/dL 70-110 BLOOD GAS, [id number] 08:10:00 Test Item Value Reference Range Comments PH ARTERIAL (BEAKER) (test dhpp=867) 7.42 7.35-7.45 PCO2 ARTERIAL (BEAKER) (test gszm=846) 39 mmHg 35-45 PO2 ARTERIAL (BEAKER) (test dzfj=976) 454 mmHg 80-90 O2 SATURATION ARTERIAL (BEAKER) (test vuur=310) 99.9 % 96.0-97.0 HCO3 ARTERIAL (BEAKER) (test dzhp=812) 25 mmol/L 21-29 BASE EXCESS ARTERIAL (BEAKER) (test ptrv=170) 0.5 mmol/L -2.0-3.0 PATIENT TEMPERATURE (BEAKER) (test pvcu=0106) 37.0 C FIO2 (BEAKER) (test hmoo=9579) 87.0 % GLUCOSE-STAT [id number] 08:10:00 Test Item Value Reference Range Comments GLUCOSE RANDOM (BEAKER) (test uxkp=555) 113 mg/dL 70-110 HGB/HCT (H&H) - STAT [id number] 08:10:00 Test Item Value Reference Range Comments HEMOGLOBIN (BEAKER) (test tofp=568) 9.1 g/dL 12.0-15.0 HEMATOCRIT (BEAKER) (test gwrm=607) 27.0 % 36.0-45.0 SODIUM NA-STAT [id number] 08:09:00 Test Item Value Reference Range Comments SODIUM (BEAKER) (test izam=436) 138 meq/L 135-148 POTASSIUM-STAT [id number] 08:09:00 Test Item Value Reference Range Comments POTASSIUM (BEAKER) (test oije=776) 4.1 meq/L 3.6-5.5 CALCIUM, [id number] 08:09:00 Test Item Value Reference Range Comments CALCIUM IONIZED (BEAKER) (test dzls=197) 1.13 mmol/L 1.12-1.27 PH, BLOOD (BEAKER) (test ykor=5282) 7.42 TROPONIN [id number] 04:51:00 Test Item Value Reference Range Comments TROPONIN I (BEAKER) (test byxa=256) 0.78 ng/mL 0.00-0.03 Troponin I (TnI) levels [...] acute neurological disease, and persistent tachyarrhythmia.BASIC METABOLIC [id number] 04:48:00 Test Item Value Reference Range Comments SODIUM (BEAKER) (test 139 meq/L 136-145 racz=394) POTASSIUM (BEAKER) (test 4.7 meq/L 3.5-5.1 lekd=415) CHLORIDE (BEAKER) (test 110 meq/L 98-107 mzqc=993) CO2 (BEAKER) (test 22 meq/L 22-29 lddd=038) BLOOD UREA NITROGEN 24 mg/dL 7-21 (BEAKER) (test outf=923) CREATININE (BEAKER) (test 1.01 mg/dL 0.57-1.25 jnsy=426) GLUCOSE RANDOM (BEAKER) 119 mg/dL 70-105 (test guec=226) CALCIUM (BEAKER) (test 8.7 mg/dL 8.4-10.2 xyyh=314) EGFR (BEAKER) (test 53 mL/min/1.73 sq m ESTIMATED GFR IS NOT bpps=1918) ACCURATE CREATININE CLEARANCE IN PREDICTING GLOMERULAR FILTRATION RATE. ESTIMATED GFR IS NOT APPLICABLE FOR DIALYSIS PATIENTS. CREATINE KINASE (CK), TOTAL AND [id number] 04:46:00 Test Item Value Reference Range Comments CREATINE KINASE TOTAL (BEAKER) (test bwfg=390) 65 U/L 29-200 CREATINE KINASE-MB (BEAKER) (test rjbo=475) 2.1 ng/mL 0.0-6.6 CREATINE KINASE-MB INDEX (BEAKER) (test bxpl=168) 3.2 % CK-MB Reference Range:<6.7 Normal6.7-10.0 Borderline>10.0 AbnormalCBC W/PLT COUNT & AUTO [id number] 04:20:00 Test Item Value Reference Range Comments WHITE BLOOD CELL COUNT (BEAKER) (test tkyl=000) 19.7 K/ L 3.5-10.5 RED BLOOD CELL COUNT (BEAKER) (test xwzv=605) 2.77 M/ L 3.93-5.22 HEMOGLOBIN (BEAKER) (test vthm=127) 8.4 GM/DL 11.2-15.7 HEMATOCRIT (BEAKER) (test ksww=517) 26.8 % 34.1-44.9 MEAN CORPUSCULAR VOLUME (BEAKER) (test ckuo=886) 96.8 fL 79.4-94.8 MEAN CORPUSCULAR HEMOGLOBIN (BEAKER) (test 30.3 pg 25.6-32.2 ewdn=245) MEAN CORPUSCULAR HEMOGLOBIN CONC (BEAKER) (test 31.3 GM/DL 32.2-35.5 sagi=864) RED CELL DISTRIBUTION WIDTH (BEAKER) (test 14.2 % 11.7-14.4 zpfh=547) PLATELET COUNT (BEAKER) (test sthc=707) 169 K/CU MM 150-450 MEAN PLATELET VOLUME (BEAKER) (test fspi=069) 12.9 fL 9.4-12.3 NUCLEATED RED BLOOD CELLS (BEAKER) (test 0 /100 WBC 0-0 cvxb=931) NEUTROPHILS RELATIVE PERCENT (BEAKER) (test 83 % vslo=632) LYMPHOCYTES RELATIVE PERCENT (BEAKER) (test 9 % cemw=000) MONOCYTES RELATIVE PERCENT (BEAKER) (test 7 % muvo=752) EOSINOPHILS RELATIVE PERCENT (BEAKER) (test 0 % jjdb=427) BASOPHILS RELATIVE PERCENT (BEAKER) (test 0 % dmfx=900) NEUTROPHILS ABSOLUTE COUNT (BEAKER) (test 16.40 K/ L 1.56-6.13 klea=295) LYMPHOCYTES ABSOLUTE COUNT (BEAKER) (test 1.84 K/ L 1.18-3.74 yxsz=234) MONOCYTES ABSOLUTE COUNT (BEAKER) (test 1.29 K/ L 0.24-0.36 bfiu=764) EOSINOPHILS ABSOLUTE COUNT (BEAKER) (test 0.00 K/ L 0.04-0.36 qugq=125) BASOPHILS ABSOLUTE COUNT (BEAKER) (test 0.02 K/ L 0.01-0.08 bltl=641) IMMATURE GRANULOCYTES-RELATIVE PERCENT (BEAKER) 1 % 0-1 (test ysfs=0668) [id number] 04:14:00 Test Item Value Reference Range Comments PARTIAL THROMBOPLASTIN TIME (BEAKER) (test 74.8 seconds 22.5-36.0 dlcn=275) HEMOGLOBIN [id number] 21:12:00 Test Item Value Reference Range Comments HEMOGLOBIN A1C (BEAKER) (test idvw=632) 6.0 % 4.3-6.1 [id number] 19:53:00 Test Item Value Reference Range Comments FERRITIN (BEAKER) (test kzxu=324) 58 ng/mL 5-275 TROPONIN [id number] 19:49:00 Test Item Value Reference Range Comments TROPONIN I (BEAKER) (test fhmv=794) 0.69 ng/mL 0.00-0.03 Troponin I (TnI) levels [...] NATRIURETIC PEPTIDE (BEAKER) (test 202 pg/mL 0-100 ieik=425) IRON, TIBC, % SAT. (WITHOUT FERRITIN)[id number] 19:32:00 Test Item Value Reference Range Comments IRON (BEAKER) (test fwfi=561) 36 ug/dL 40-160 TOTAL IRON BINDING CAPACITY (BEAKER) (test 365 ug/dL 250-450 uaqh=709) IRON % SATURATION (2) (BEAKER) (test uiqk=2815) 10 % 20-55 LIPID [id number] 19:30:00 Test Item Value Reference Range Comments TRIGLYCERIDES (BEAKER) (test iuma=156) 86 mg/dL CHOLESTEROL (BEAKER) (test npxi=122) 114 mg/dL HDL CHOLESTEROL (BEAKER) (test uhyd=484) 40 mg/dL LDL CHOLESTEROL CALCULATED (BEAKER) (test 57 mg/dL jbvx=702) Triglyceride Reference Range: Low Risk <150 Borderline 150- 199 High Risk 200-499 Very High Risk >=500Cholesterol Reference Range: Low Risk <200 Borderline 200-239 High Risk > 240HDL Cholesterol Reference Range: Low Risk >=60 High Risk <40LDL Cholesterol Reference Range: Optimal <100 Near Optimal 100-129 Borderline 130-159 High 160-189 Very High >=190BASIC METABOLIC [id number] 19:30:00 Test Item Value Reference Range Comments SODIUM (BEAKER) (test 138 meq/L 136-145 thrr=089) POTASSIUM (BEAKER) (test 4.5 meq/L 3.5-5.1 cokx=454) CHLORIDE (BEAKER) (test 108 meq/L 98-107 wqyo=089) CO2 (BEAKER) (test 21 meq/L 22-29 tbmc=688) BLOOD UREA NITROGEN 23 mg/dL 7-21 (BEAKER) (test ydcw=332) CREATININE (BEAKER) (test 1.05 mg/dL 0.57-1.25 cunv=790) GLUCOSE RANDOM (BEAKER) 195 mg/dL 70-105 (test qswz=855) CALCIUM (BEAKER) (test 8.9 mg/dL 8.4-10.2 ojix=657) EGFR (BEAKER) (test 51 mL/min/1.73 sq m ESTIMATED GFR IS NOT erxu=9079) ACCURATE CREATININE CLEARANCE IN PREDICTING GLOMERULAR FILTRATION RATE. ESTIMATED GFR IS NOT APPLICABLE FOR DIALYSIS PATIENTS. RAD, CHEST, 1 VIEW, NON [id number] 19:30:00Reason for exam:->chest painShould this be performed [...] is no acute bony abnormality. Signed: Jason Prestonort Verified Date/Time: 05/22/2017 19:30:20 Reading Location: [address] Reading Room [id number] 19:26:00 Test Item Value Reference Range Comments PARTIAL THROMBOPLASTIN TIME (BEAKER) (test 27.3 seconds 22.5-36.0 dpkf=197) PROTHROMBIN TIME/[id number] 19:25:00 Test Item Value Reference Range Comments PROTIME (BEAKER) (test fcir=213) 14.3 seconds 11.7-14.7 INR (BEAKER) (test ynkq=698) 1.1 <=5.9 RECOMMENDED COUMADIN/WARFARIN INR THERAPY RANGESSTANDARD DOSE: 2.0 - 3.0 Includes: PROPHYLAXIS forvenous thrombosis, systemic embolization; TREATMENT for venous thrombosis and/or pulmonary embolus.HIGH RISK: Target INR is 2.5-3.5 for patients with mechanical heart valves.POCT-GLUCOSE [id number] 19:10:00 Test Item Value Reference Range Comments POC-GLUCOSE METER (JARRETT) 231 mg/dL 70-110 TESTED AT [facility] [address] [facility] (test cttc=2288) [place] [address]
--- OUTSIDE RECORDS SUMMARY | 2019-08-06 11:32 | XMS REPORT ---
:1940 Author Organization [employer] Care Team Providers Name Role Phone Alfredo Estrada Provider Role Unavailable Allergies, Adverse Reactions, Alerts Substance Reaction Event Type N.K.D.A. Info Not Available Non Drug Allergy Problems Problem Type Condition Code Onset Dates Condition Status Problem Pain in joint of left shoulder M25.512 Active Problem Closed displaced comminuted S42.352D Active fracture of shaft of left humerus with routine healing, subsequent encounter Assessment Pain in joint of left shoulder M25.512 Active Assessment Closed traumatic displaced S42.202D Active fracture of proximal end of left humerus with routine healing Medications Medication Code System Code Instructions Start End Date Status Dosage Date albuterol ND 0 Active not defined Hemocyte Plus [facility] 79282-69 Active not defined 00-30 Escitalopram [facility] 37140-97 Active not defined Oxalate 69-24 Zolpidem Tartrate [facility] 66836-98 Active not defined 61-30 [place] [address]-65 Active not defined 21-41 atorvastatin ND 0 Active not defined Zofran [facility] 87201-51 Active not defined 89-00 Furosemide ND 0 Active not defined Nitroglycerin [facility] 13681-23 Active not defined 01-80 Multivitamin [facility] 57147-25 Active not defined Adults 50+ 075 Lisinopril [facility] 06454-64 Active not defined 01- Metformin HCl [facility] 59440-91 Active not defined 08-01 Aspirin 81 [facility] 99713-20 Active not defined 381 [place] [address]-99 Active not defined 208 [place] [address]-10 Active not defined 76-00 [place] [address]-64 Active not defined 01-05 clopidogrel NDC 0 Active not defined Donepezil HCl [facility] 63340-73 Active not defined 29-03 Metoprolol [facility] 98919-60 Active not defined Succinate 11-30 Results No Known Results Summary Purpose eClinicalWorks Submission
[2019-08-06] MEDS ORDERED: NA CHLORIDE 0.9% 0 ML ONE (11:54)
[2019-08-06] MEDS ORDERED: IPRATROPIUM BROM 0.5MG/2.5ML ONE (11:59)
[2019-08-06] MEDS ORDERED: ALBUTEROL 2.5 MG/3 ML NEB SOL ONE (11:59)
[2019-08-06 12:10] LABS: Protime INR 1.07
[2019-08-06 12:24] LABS: Absolute Lymphocytes (CBC) 1.1 K/uL (0.7-4.9); Basophils % 0.2 % (0-1.3); Hematocrit 23.5 % (36.0-45.0); Lymphocytes % 5.8 % (15.3-44.8); MPV 10.4 fL (7.6-11.3); RBC Red Blood Cell Count 2.46 M/uL (3.86-4.86)
[2019-08-06 12:38] LABS: ALT/SGPT 16 U/L (12-78); AST/SGOT 24 U/L (15-37); Albumin 2.4 g/dL (3.4-5.0); Alkaline Phosphatase 104 U/L (45-117); BUN Blood Urea Nitrogen 35 mg/dL (7-18); Bicarbonate 29 mmol/L (21-32); Bilirubin Direct 0.1 mg/dL (0-0.2); Bilirubin Total 0.4 mg/dL (0.2-1.0); CKMB Creatine Kinase MB < 1.0 ng/mL (0.3-3.6); Creatine Phosphokinase 55 U/L (26-192); Glucose Level 96 mg/dL (74-106); Lipase 151 U/L (73-393); Potassium 3.7 mmol/L (3.5-5.1); Protein, Total 7.7 g/dL (6.4-8.2); Sodium Level 146 mmol/L (136-145); Troponin (Emerg Dept Use Only) < 0.02 ng/mL (0.0-0.045)
--- NOTE | 2019-08-06 13:08 | ER ---
Nurse's Notes [facility] Name: Maricel Guerrero Age: 79 yrs Sex: Female : 1940 Arrival Date: 08/06/2019 Time: 11:30 Bed 5 Private MD: Diagnosis: Pneumonia, unspecified organism;Chronic respiratory failure with hypoxia Presentation: 08/06 11:23 Presenting complaint: EMS states: flu-like symptoms, productive cough x 1 week. BP sv 155/104 HR-77 98 temp, 90-93% on O2 \T\ 4L per NC. Pt reports she has been taking her brother's Tamiflu. Transition of care: patient was not received from another setting of care. Onset of symptoms was July 30, 2019. Risk Assessment: Do you want to hurt yourself or someone else? Patient reports no desire to harm self or others. Initial Sepsis Screen: Does the patient meet any 2 criteria? RR > 20 per min. No. Patient's initial sepsis screen is negative. Does the patient have a suspected source of infection? Yes: Productive cough/pneumonia. Care prior to arrival: None. 11:23 Method Of Arrival: EMS: [facility] sv 11:23 Acuity: WILL 2 sv Triage Assessment: 11:25 General: Appears in no apparent distress. uncomfortable, slender, Behavior is calm, sv cooperative, appropriate for age. Pain: Denies pain. Neuro: Level of Consciousness is awake, alert, obeys commands, Oriented to person, place, time, situation, Moves all extremities. Cardiovascular: Heart tones S1 S2 present Patient's skin is warm and dry. Pulses are 2+ in right radial artery and left radial artery. Respiratory: Reports shortness of breath at rest on exertion cough that is productive, persistent since 1 week ago Airway is patent Respiratory effort is even, pursed lip, Respiratory pattern is symmetrical, tachypnea Breath sounds are coarse bilaterally. Onset: The symptoms/episode began/occurred 1 week, the patient has moderate shortness of breath. Derm: Skin is fragile, is thin, with poor turgor Skin is pale. Historical: - Allergies: 11:32 Iodine; sv 11:32 Iodine; hb - Home Meds: 11:32 aspirin 81 mg Oral TbEC 1 tab once daily [Active]; atorvastatin 40 mg Oral tab hb [Active]; clopidogrel 75 mg Oral tab 1 tab once daily [Active]; donepezil 10 mg Oral tab 1 tab once daily [Active]; escitalopram oxalate 10 mg Oral tab 1 tab once daily [Active]; Hemocyte-Plus 106 mg iron- 1 mg Oral cap 1 cap once daily [Active]; megestrol 40 mg Oral tab 1 tab [Active]; megestrol 20 mg Oral tab 1 tab 2 times per day [Active]; memantine 10 mg Oral tab [Active]; nitroglycerin 0.4 mg Oral as needed [Active]; ProAir HFA 90 mcg/actuation inhalation HFAA [Active]; Synthroid 25 mcg Oral tab 1 tab once daily [Active]; Toprol XL 25 mg Oral Tb24 [Active]; tramadol 50 mg Oral tab [Active]; zolpidem 10 mg Oral tab [Active]; - PMHx: 11:32 AAA; Colon Cancer with metastasis to liver; Diabetes - NIDDM; Headaches; Hypertension; hb Hypothyroidism; - PSHx: 11:32 hip; Heart Surgery; tube placement; hb - Immunization history:: Adult Immunizations up to date. - Ebola Screening: : No symptoms or risks identified at this time. - Social history:: Smoking status: Patient uses tobacco products, smokes one pack cigarettes per day. Screenin:33 Abuse screen: Denies threats or abuse. Denies injuries from another. Nutritional hb screening: No deficits noted. Tuberculosis screening: No symptoms or risk factors identified. Fall Risk Total Welch Fall Scale indicates Low Risk Score (25-44 pts). Fall prevention measures have been instituted. Side Rails Up X 2 Frequent Obs/Assesments occuring As available Patient and Family Educated on Fall Prevention Program and strategies. Assessment: 12:32 Reassessment: Patient appears in no apparent distress at this time. Patient and/or sv family updated on plan of care and expected duration. Pain level reassessed. Patient is alert, oriented x 3, equal unlabored respirations, skin warm/dry/pink. 13:30 Reassessment: Patient appears in no apparent distress at this time. Patient and/or sv family updated on plan of care and expected duration. Pain level reassessed. Patient is alert, oriented x 3, equal unlabored respirations, skin warm/dry/pink. 14:11 Reassessment: Attempted to call report, nurse unavailable, will call back. sv 14:30 Reassessment: at bedside at this time. sg 14:38 Reassessment: Patient appears in no apparent distress at this time. Patient and/or sg family updated on plan of care and expected duration. Pain level reassessed. Patient is alert, oriented x 3, equal unlabored respirations, skin warm/dry/pink. report called to konrad RN for room 231. Vital Signs: 11:32 BP 119 / 77; Pulse 83; Resp 24; Temp 97.6; Pulse Ox 88% on R/A; Weight 45.36 kg; Height sv 5 ft. 0 in. (152.40 cm); Pain 0/10; 12:32 BP 111 / 69; Pulse 80; Resp 16; Temp 97.0; Pulse Ox 96% on 5 lpm NC; em1 13:30 BP 102 / 58; Pulse 99; Resp 19; Pulse Ox 91% on 50% Venturi mask; sv 11:32 Body Mass Index 19.53 (45.36 kg, 152.40 cm) sv 11:32 Placed on O2 \T\ 4L per NC, O2 sat 91%, placed on 5L O2 sat up to 93%. sv 13:[address] Doran of O2 sat, he is ok with this. sv ED Course: 11:30 Patient arrived in ED. hb 11:30 Merari De Leon, RN is Primary Nurse. sv 11:32 Triage completed. sv 11:33 Arm band placed on. hb 11:33 Patient has correct armband on for positive identification. Placed in gown. Bed in low sv position. Call light in reach. Side rails up X2. surveillance system monitor on. Pulse ox on. NIBP on. 11:46 Ang Doran MD is Attending Physician. kdr 11:48 Initial lab(s) drawn, by sd, sent to lab. First set of blood cultures drawn by me. sv Inserted saline lock: 22 gauge in right forearm, using aseptic technique. ,using aseptic technique. diffusics Blood collected. Flushed right forearm with 5 ml normal saline. 11:55 Second set of blood cultures drawn by me. sv 13:04 Chest Single View XRAY Sent. sv 13:04 Basic Metabolic Panel Sent. sv 13:04 Blood Culture Adult (2) Sent. sv 13:04 CBC with Diff Sent. sv 13:04 Ckmb Sent. sv 13:04 CPK Sent. sv 13:04 Lactate Sent. sv 13:04 LFT's Sent. sv 13:04 Lipase Sent. sv 13:04 Procalcitonin Sent. sv 13:04 Protime (+inr) Sent. sv 13:04 Ptt, Activated Sent. sv 13:04 Troponin (emerg Dept Use Only) Sent. sv 13:07 Paras Limon MD is Hospitalizing Provider. kdr 15:15 No provider procedures requiring assistance completed. Patient admitted, IV remains in sv place. intact. Administered Medications: 11:57 CANCELLED (Physician Discretion): NS 0.9% (30 ml/kg) 30 ml/kg IV at bolus once; Sepsis sv Protocol 12:01 Drug: Albuterol - atroVENT (3:1) (2.5 mg - 0.5 mg) 3 ml Route: Nebulizer; sv 12:30 Follow up: Response: No adverse reaction sv Outcome: 13:07 Decision to Hospitalize by Provider. kdr 15:15 Patient left the ED. sv 15:15 Admitted to Tele accompanied by tech, via stretcher, with oxygen, with chart, Report sv called to Gifty RN 15:15 Condition: stable 15:15 Instructed on the need for admit. Signatures: Merari De Leon RN MOREON Albert Blas RN RN Ang Doran MD MD [facility] Issac, Dominik em1 Christine Guallpa RN RN Corrections: (The following items were deleted from the chart) 11:32 11:23 Presenting complaint: EMS states: flu-like symptoms, productive cough x 1 week. sv BP 155/104 HR-77 98 temp, 90-93% on O2 \T\ 4L per NC. sv
--- NOTE | 2019-08-06 13:08 | EDPHYS ---
Physician Documentation [facility] Name: Maricel Guerrero Age: 79 yrs Sex: Female : 1940 Arrival Date: 08/06/2019 Time: 11:30 Bed 5 Private MD: ED Physician Ang Doran HPI: 08/06 17:38 This 79 yrs old Female presents to ER via EMS with complaints of Productive kdr Cough. 17:38 The patient or guardian reports cough, that is intermittent, described as mild, kdr described as moderate, difficulty breathing. Onset: The symptoms/episode began/occurred gradually, 1 week(s) ago. Severity of symptoms: At their worst the symptoms were mild, in the emergency department the symptoms are unchanged. Modifying factors: The symptoms are alleviated by nothing, the symptoms are aggravated by exertion, talking. Associated signs and symptoms: The patient has no apparent associated signs or symptoms, Pertinent positives: Pertinent negatives: chest pain, diarrhea, fever, nausea, rhinorrhea, sore throat. The patient has experienced similar episodes in the past, a few times. The patient has not recently seen a physician. Historical: - Allergies: 11:32 Iodine; sv 11:32 Iodine; hb - Home Meds: 11:32 aspirin 81 mg Oral TbEC 1 tab once daily [Active]; atorvastatin 40 mg Oral tab hb [Active]; clopidogrel 75 mg Oral tab 1 tab once daily [Active]; donepezil 10 mg Oral tab 1 tab once daily [Active]; escitalopram oxalate 10 mg Oral tab 1 tab once daily [Active]; Hemocyte-Plus 106 mg iron- 1 mg Oral cap 1 cap once daily [Active]; megestrol 40 mg Oral tab 1 tab [Active]; megestrol 20 mg Oral tab 1 tab 2 times per day [Active]; memantine 10 mg Oral tab [Active]; nitroglycerin 0.4 mg Oral as needed [Active]; ProAir HFA 90 mcg/actuation inhalation HFAA [Active]; Synthroid 25 mcg Oral tab 1 tab once daily [Active]; Toprol XL 25 mg Oral Tb24 [Active]; tramadol 50 mg Oral tab [Active]; zolpidem 10 mg Oral tab [Active]; - PMHx: 11:32 AAA; Colon Cancer with metastasis to liver; Diabetes - NIDDM; Headaches; Hypertension; hb Hypothyroidism; - PSHx: 11:32 hip; Heart Surgery; tube placement; hb - Immunization history:: Adult Immunizations up to date. - Ebola Screening: : No symptoms or risks identified at this time. - Social history:: Smoking status: Patient uses tobacco products, smokes one pack cigarettes per day. ROS: 17:38 Constitutional: Negative for fever, chills, and weight loss, Eyes: Negative for injury, kdr pain, redness, and discharge, ENT: Negative for injury, pain, and discharge, Neck: Negative for injury, pain, and swelling, Cardiovascular: Negative for chest pain, palpitations, and edema, Abdomen/GI: Negative for abdominal pain, nausea, vomiting, diarrhea, and constipation, Back: Negative for injury and pain, : Negative for injury, bleeding, discharge, and swelling, MS/Extremity: Negative for injury and deformity, Skin: Negative for injury, rash, and discoloration, Neuro: Negative for headache, weakness, numbness, tingling, and seizure activity. Psych: Negative for depression, anxiety, suicide ideation, homicidal ideation, and hallucinations, Allergy/Immunology: Negative for hives, rash, and allergies, Endocrine: Negative for neck swelling, polydipsia, polyuria, polyphagia, and marked weight changes, Hematologic/Lymphatic: Negative for swollen nodes, abnormal bleeding, and unusual bruising. 17:38 Respiratory: Positive for cough, "sounds productive", dyspnea on exertion, pleurisy, shortness of breath, on exertion. Exam: 17:38 Constitutional: This is a well developed, well nourished patient who is awake, alert, kdr and in no acute distress. Head/Face: Normocephalic, atraumatic. Eyes: Pupils equal round and reactive to light, extra-ocular motions intact. Lids and lashes normal. Conjunctiva and sclera are non-icteric and not injected. Cornea within normal limits. Periorbital areas with no swelling, redness, or edema. Neck: Trachea midline, no thyromegaly or masses palpated, and no cervical lymphadenopathy. Supple, full range of motion without nuchal rigidity, or vertebral point tenderness. No Meningismus. Chest/axilla: Normal chest wall appearance and motion. Nontender with no deformity. No lesions are appreciated. Cardiovascular: Regular rate and rhythm with a normal S1 and S2. No gallops, murmurs, or rubs. Normal PMI, no JVD. No pulse deficits. Abdomen/GI: Soft, non-tender, with normal bowel sounds. No distension or tympany. No guarding or rebound. No evidence of tenderness throughout. Back: No spinal tenderness. No costovertebral tenderness. Full range of motion. Skin: Warm, dry with normal turgor. Normal color with no rashes, no lesions, and no evidence of cellulitis. MS/ Extremity: Pulses equal, no cyanosis. Neurovascular intact. Full, normal range of motion. Neuro: Awake and alert, GCS 15, oriented to person, place, time, and situation. Cranial nerves II-XII grossly intact. Motor strength 5/5 in all extremities. Sensory grossly intact. Cerebellar exam normal. Normal gait. Psych: Awake, alert, with orientation to person, place and time. Behavior, mood, and affect are within normal limits. 17:38 Respiratory: mild respiratory distress is noted, Respirations: shallow respirations, that is mild, Breath sounds: rales, rhonchi, that are moderate, are scattered, are located in both bases. Vital Signs: 11:32 BP 119 / 77; Pulse 83; Resp 24; Temp 97.6; Pulse Ox 88% on R/A; Weight 45.36 kg; Height sv 5 ft. 0 in. (152.40 cm); Pain 0/10; 12:32 BP 111 / 69; Pulse 80; Resp 16; Temp 97.0; Pulse Ox 96% on 5 lpm NC; em1 13:30 BP 102 / 58; Pulse 99; Resp 19; Pulse Ox 91% on 50% Venturi mask; sv 11:32 Body Mass Index 19.53 (45.36 kg, 152.40 cm) sv 11:32 Placed on O2 \\T\\ 4L per NC, O2 sat 91%, placed on 5L O2 sat up to 93%. sv 13:[address] Doran of O2 sat, he is ok with this. sv MDM: 13:07 Patient medically screened. kdr 17:38 Data reviewed: vital signs, nurses notes, lab test result(s), EKG, radiologic studies. kdr Counseling: I had a detailed discussion with the patient and/or guardian regarding: the historical points, exam findings, and any diagnostic results supporting the discharge/admit diagnosis, lab results, radiology results, the need for further work-up and treatment in the hospital. 08/06 11:37 Order name: Basic Metabolic Panel hb 08/06 11:37 Order name: Blood Culture Adult (2) hb 08/06 11:37 Order name: CBC with Diff hb 08/06 11:37 Order name: Ckmb hb 08/06 11:37 Order name: CPK hb 08/06 11:37 Order name: Lactate hb 08/06 11:37 Order name: LFT's hb 08/06 11:37 Order name: Lipase hb 08/06 11:37 Order name: Procalcitonin hb 08/06 11:37 Order name: Protime (+inr) hb 08/06 11:37 Order name: Ptt, Activated hb 08/06 11:37 Order name: Troponin (emerg Dept Use Only) hb 08/06 11:37 Order name: Urine Microscopic Only hb 08/06 12:22 Order name: Protime (+INR); Complete Time: 12:59 EDMS 08/06 11:37 Order name: Chest Single View XRAY hb 08/06 12:22 Order name: PTT, Activated Partial Thromb; Complete Time: 12:59 EDMS 08/06 12:26 Order name: CBC with Automated Diff; Complete Time: 12:59 EDMS 08/06 12:37 Order name: Lactate; Complete Time: 12:59 EDMS 08/06 12:38 Order name: Basic Metabolic Panel; Complete Time: 12:59 EDMS 08/06 12:38 Order name: Liver (Hepatic) Function; Complete Time: 12:59 EDMS 08/06 12:39 Order name: Creatine Phosphokinase; Complete Time: 12:59 EDMS 08/06 12:39 Order name: CKMB Creatine Kinase MB; Complete Time: 12:59 EDMS 08/06 12:39 Order name: Troponin (Emerg Dept Use Only); Complete Time: 12:59 EDMS 08/06 12:39 Order name: Lipase; Complete Time: 12:59 EDMS 08/06 13:14 Order name: Procalcitonin; Complete Time: 14:35 EDMS 08/06 13:24 Order name: RAD; Complete Time: 14:35 EDMS 08/06 14:42 Order name: Flu sv 08/06 11:37 Order name: Cardiac monitoring; Complete Time: 12:01 hb 08/06 11:37 Order name: EKG - Nurse/Tech; Complete Time: 12:01 hb 08/06 11:37 Order name: IV Saline Lock - Large Bore; Complete Time: 12:01 hb 08/06 11:37 Order name: Labs collected and sent; Complete Time: 12:01 hb 08/06 11:37 Order name: O2 Per Protocol; Complete Time: 12:01 hb 08/06 11:37 Order name: O2 Sat Monitoring; Complete Time: 12:01 hb Administered Medications: 11:57 CANCELLED (Physician Discretion): NS 0.9% (30 ml/kg) 30 ml/kg IV at bolus once; Sepsis sv Protocol 12:01 Drug: Albuterol - atroVENT (3:1) (2.5 mg - 0.5 mg) 3 ml Route: Nebulizer; sv 12:30 Follow up: Response: No adverse reaction sv Disposition: 08/06/19 13:07 Hospitalization ordered by Paras Limon for Inpatient Admission. Preliminary diagnosis are Pneumonia, unspecified organism, Chronic respiratory failure with hypoxia. - Bed requested for Telemetry/MedSurg (Inpatient). - Status is Inpatient Admission. sv - Condition is Fair. - Problem is new. - Symptoms have improved. UTI on Admission? No Signatures: Dispatcher [employer] EDMerari Keen, RN RN Ang Doran MD MD [facility] Christine Guallpa RN RN Kostas Amezquita RN RN ja1 Corrections: (The following items were deleted from the chart) 11:57 11:37 NS 0.9% (30 ml/kg) 30 ml/kg IV at bolus once; Sepsis Protocol ordered. hb sv 11:57 11:57 NS 0.9% (30 ml/kg) 30 ml/kg IV at bolus once; Sepsis Protocol ordered. sv sv 13:57 11:37 Accucheck ordered. hb sv 13:58 13:07 Hospitalization Ordered by Paras Limon MD for Inpatient Admission. Preliminary ja1 diagnosis is Pneumonia, unspecified organism; Chronic respiratory failure with hypoxia. Bed requested for Telemetry/MedSurg (Inpatient). Status is Inpatient Admission. Condition is Fair. Problem is new. Symptoms have improved. UTI on Admission? No. kdr 15:15 13:58 08/06/2019 13:07 Hospitalization Ordered by Paras Limon MD for Inpatient sv Admission. Preliminary diagnosis is Pneumonia, unspecified organism; Chronic respiratory failure with hypoxia. Bed requested for Telemetry/MedSurg (Inpatient). Status is Inpatient Admission. Condition is Fair. Problem is new. Symptoms have improved. UTI on Admission? No. ja1
--- NOTE | 2019-08-06 13:23 | RAD REPORT ---
EXAM DESCRIPTION: RAD - Chest Single View - 08/06/2019 12:04 pm CLINICAL HISTORY: Cough, flu-like symptoms COMPARISON: November 2017 TECHNIQUE: AP portable chest image was obtained 1200 hours . FINDINGS: Interstitial and airspace opacification present in the right upper lobe. Patient has an ov erall increased interstitial pattern throughout the lung [place]. Patchy alveolar opacities are presen t in the lower lung [place]. Sternotomy wires are in place. Prior CABG surgical changes noted. Heart size and vasculature within normal limits. No measurable pleural effusion and no pneumothorax. No acute bony abnormality seen. No acute aortic findings suspected. IMPRESSION: Patient shows a right upper lobe pneumonia superimposed on a diffuse interstitial edema or infiltrate pattern.
[2019-08-06] MEDS ORDERED: ACETAMINOPHEN 500 MG TAB PO PRN (14:14)
[2019-08-06] MEDS ORDERED: NA CHLORIDE 0.9% 1,000 ML IV SCH (14:14)
[2019-08-06] MEDS ORDERED: ONDANSETRON 4 MG/2 ML VIAL IV PRN (14:14)
[2019-08-06] MEDS ORDERED: GLUCAGON 1 MG/VIAL IM PRN (15:47)
[2019-08-06] MEDS ORDERED: D50W 25 GM/50 ML SYRINGE/VIAL IV PRN (15:47)
[2019-08-06 15:48] VITALS: BMI 19.5
[2019-08-06] MEDS: INSULIN -REGULAR HUMAN 50 UNIT/0.5 ML ML SQ SCH ×2 (16:30→20:50)
[2019-08-06] MEDS: CEFTRIAXONE/SWI 1gm 1 GM/10 ML SYR IVP SCH (20:49)
--- NOTE | 2019-08-06 21:24 | HP ---
Date of Admission: 08/06/2019 Code Status: Full. Chief Complaint: Shortness of breath. History Of Present Illness: Patient is a 79-year-old female with past medical history of COPD, not o n home oxygen, nicotine dependence. Patient smokes 1 pack per day, has been smoking for 30 years, Al zheimer's dementia, coronary artery disease, comes in with shortness of breath that has been ongoing for the past 2 weeks. Patient reports some cough, yellow-green sputum production, and ill contacts. Her brother is ill with similar bronchitis type symptoms. Patient denies any significant fevers or chills. She came into the ER for further evaluation. Her symptoms are constant, moderate, progressi vely worsening. Her workup revealed a white count of 18.9, procalcitonin was elevated at 1.07. Lact ate was normal. There were no signs of sepsis. The patient's chest x-ray revealed right upper lobe pneumonia superimposed on interstitial show edema. Patient was then referred for admission. When se en in the ER she was awake, alert, and oriented x3, in some mild distress. Past Medical History: 1.Coronary artery disease, [place] artery. 2.Diabetes mellitus type 2. 3.Essential hypertension. 4.Hyperlipidemia. 5.Gastroesophageal reflux disease. 6.Chronic obstructive pulmonary disease. 7.History of AAA repair. 8.Chronic headaches. Surgical History: AAA repair, hysterectomy, appendectomy, CABG, double bypass, and right hip ORIF. Allergies: TO IODINE CAUSES HIVES. Medications: List reviewed. Social History: The patient denies any alcohol use. Patient smokes 1 pack per day for the past 30 y ears. Lives alone, does have home health for assisting in her activities of daily living. Patient i s a , has 3 children. Family History: Father had cancer. Mother had colon cancer. Review of Systems: Ten-point system reviewed, negative except as per HPI. Physical Examination: Vital Signs: Blood pressure 119/77, pulse 63, respirations 24, temperature 97.6, 88% on room air. GENERAL: Awake, alert, and oriented x3. Elderly female, in mild respiratory distress. HEENT: Normocephalic, atraumatic. PERRLA. EOMI. Dry mucous membranes. Oropharynx is clear. Poor dentition. Conjunctivae are anicteric. Neck: Supple. No JVD. Trachea midline. CV: S1, S2. Regular rate and rhythm. Peripheral pulses weak. Respiratory: Diminished breath sounds, some rhonchi present. No wheezing or stridor. No use of acc essory muscles. Gastrointestinal: Abdomen is soft, nontender, nondistended. Positive bowel sounds. Extremities: No clubbing, cyanosis, or edema. No calf tenderness. Neuro: Cranial nerves 2 through 12 intact grossly. No focal neurological deficits. Speech is shonda l. Strength is symmetric bilateral upper and lower extremities sensation intact to light touch. Laboratory Data: Sodium 146, potassium 3.7, chloride 111, CO2 of 29, BUN 35, creatinine 1.45, glucos e 96, lactate 1.3, calcium 8.9. Troponin less than 0.02. Procalcitonin 1.07. Lipase 151. WBC 18.9 , H and H 8 and 23.5, platelets 228, neutrophils 84%. INR 1.07. UA is pending. Influenza screen is negative. Chest x-ray personally reviewed, shows right upper lobe pneumonia superimposed on diffuse interstitial edema or infiltrate pattern. Assessment And Plan: A 79-year-old female with, 1.Right upper lobe pneumonia. We will start on azithromycin and Rocephin, obtain blood cultures and sputum cultures. Patient has elevated white blood cell count. Chest x-ray shows infiltrate. Patie nt does seem to have some dementia. We will have speech therapy evaluate her swallowing function to rule out aspiration as a cause of pneumonia. 2.Diabetes mellitus type 2, non-insulin requiring. We will start on sliding scale insulin and monit or blood glucose levels. 3.Essential hypertension. Resume home medications as appropriate. 4.Coronary artery disease napaimute artery and napaimute heart status post coronary artery bypass graft wi [facility] angina, stable. We will resume aspirin. 5.Mixed hyperlipidemia, continue statin. 6.Gastroesophageal reflux disease without esophagitis. 7.Nicotine dependence with cigarette smoking, counseled. 8.Chronic obstructive pulmonary disease, chronic bronchitis. The patient is to be started on nebuli zer treatments. 9.Acute respiratory distress with hypoxia. Patient is on non-rebreather. We will continue to provi de supplemental O2 and supportive care secondary to pneumonia. 10.Status post AAA repair. 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 Plan: 1.Admit patient to Med-Surg, place as inpatient. Length of stay greater than 2 midnights. 2.Deep vein thrombosis prophylaxis with Lovenox. NILS Voice ID: [id number]
[2019-08-07] MEDS: NA CHLORIDE 0.9% 1,000 ML IV SCH (02:50)
[2019-08-07 05:51] LABS: Absolute Lymphocytes (CBC) 0.8 K/uL (0.7-4.9); Basophils % 0.1 % (0-1.3); Hematocrit 26.2 % (36.0-45.0); Lymphocytes % 5.1 % (15.3-44.8); MPV 10.4 fL (7.6-11.3); RBC Red Blood Cell Count 2.77 M/uL (3.86-4.86)
[2019-08-07 06:03] LABS: Albumin 1.9 g/dL (3.4-5.0); Bilirubin Total 0.4 mg/dL (0.2-1.0); Phosphorus 3.3 mg/dL (2.5-4.9); Potassium 3.5 mmol/L (3.5-5.1); Protein, Total 6.4 g/dL (6.4-8.2)
[2019-08-07 07:26] LABS: Blood Morphology Comment NOT SEEN (NOT SEEN); Platelet Estimate ADEQ
[2019-08-07] MEDS: INSULIN -REGULAR HUMAN 50 UNIT/0.5 ML ML SQ SCH ×4 (07:30→20:25)
[2019-08-07] MEDS: IPRATROPIUM BROM 0.5MG/2.5ML NEB PRN ×2 (08:10→13:35)
[2019-08-07] MEDS: ALBUTEROL 2.5 MG/3 ML NEB SOL NEB PRN ×2 (08:10→13:35)
[2019-08-07] MEDS ORDERED: TRAMADOL HCL 50 MG TAB PO PRN (08:17)
[2019-08-07] MEDS ORDERED: NITROGLYCERIN 0.4 MG/TAB SL PRN (08:17)
--- NOTE | 2019-08-07 08:27 | EKG ---
Test Date: 2019-08-06 Test Time: 11:45:30 Audio Installer: VINNY MEASUREMENT RESULTS: Intervals: Rate: 72 TN: 128 QRSD: 80 QT: 398 QTc: 435 Steger: P: 79 TN: 128 QRS: 46 T: 71 INTERPRETIVE STATEMENTS: Normal sinus rhythm Nonspecific ST and T wave abnormality Abnormal ECG Compared to ECG 06/28/2019 15:00:39 ST (T wave) deviation now present J Electronically Signed On 08-07-19 08:26:15 SPRAY MAKER by Thierno Kirby
[2019-08-07] MEDS ORDERED: POTASSIUM CL SA 10 MEQ TAB PO ONE (09:00)
[2019-08-07] MEDS ORDERED: MEGESTROL 40 MG TAB PO SCH (09:00)
[2019-08-07] MEDS: AZITHROMYCIN IV 500 MG in NA CHLORIDE 0.9% 250 ML IVPB SCH (09:00)
[2019-08-07] MEDS ORDERED: HOME MED 1 EA UNK (Donepezil Hcl [Aricept] 10 MG) PO SCH (09:00)
[2019-08-07] MEDS ORDERED: ENOXAPARIN 40 MG/0.4 ML SQ SCH (09:00)
[2019-08-07] MEDS ORDERED: ZOLPIDEM TARTRATE 5 MG TABLET PO PRN (09:20)
[2019-08-07] MEDS: MEGESTROL 40 MG TAB PO SCH ×2 (09:53→20:23)
[2019-08-07] MEDS: ASPIRIN 81 MG CHEWABLE TABLET PO SCH (09:53)
[2019-08-07] MEDS: CLOPIDOGREL 75 MG TABLET PO SCH (09:53)
[2019-08-07] MEDS: ESCITALOPRAM 20 MG TAB PO SCH (09:53)
[2019-08-07] MEDS: MEMANTINE HCL 10 MG TABLET PO SCH ×2 (09:53→20:24)
[2019-08-07] MEDS: ATORVASTATIN 40 MG TAB PO SCH (09:54)
[2019-08-07] MEDS: CEFTRIAXONE/SWI 1gm 1 GM/10 ML SYR IVP SCH ×2 (09:54→20:22)
[2019-08-07] MEDS: ENOXAPARIN 30 MG/0.3 ML SQ SCH (09:54)
[2019-08-07] MEDS: METOPROLOL XL 25 MG TAB PO SCH (09:54)
--- NOTE | 2019-08-07 19:12 | PN ---
Date of Progress Note: 08/07/2019 Subjective: Patient seen and examined. Chart reviewed and case discussed with RN. Family at the [facility]. Treatment plan explained. All questions answered. Patient states she feels better than yest danishaay. No acute events overnight. Medications: List reviewed. Physical Examination: Vital Signs: Temperature 98.3, heart rate 68, blood pressure 109/62, respirations 18, O2 of 92% on 3 L via nasal cannula. General: Awake, alert, oriented x3. Elderly female, in some mild respiratory distress. CV: S1, S2. Regular rate and rhythm. Peripheral pulses weak bilaterally. Respiratory: Diminished breath sounds. Some rhonchi and wheezing heard. No use of accessory muscle s. No stridor. Gastrointestinal: Abdomen is soft, nontender, nondistended. Positive bowel sounds. No guarding or rigidity. Extremities: No clubbing, cyanosis, or edema. No calf tenderness. Neurologic: Nonfocal. Laboratory Data: Sodium 145, potassium 3.5, chloride 113, CO2 of 27, BUN 28, creatinine 1.26, glucos e 106, calcium 8.2, phosphorus 3.3, magnesium 2, albumin 1.9. WBC 16.4, H and H 8.7 and 26.2, platel ets 182, neutrophils 85%, 7% bands. Blood cultures, no growth to date. Sputum cultures pending. In fluenza screen is negative. Assessment And Plan: A 79-year-old female with: 1.Right upper lobe pneumonia. Patient is on IV antibiotics. Cultures are pending at this time. No growth to date in blood cultures. White blood cell count still elevated; however, trending down sli ghtly. Clinically, the patient seems better, still requiring supplemental oxygen. Appreciate speech therapy evaluation. No signs of dysphagia. Patient may have gram-negative pneumonia. 2.Acute respiratory failure with hypoxia. Patient now on 3 L via nasal cannula secondary to above. We will continue to wean off as tolerated. 3.Diabetes mellitus type 2, non-insulin requiring. We will continue with sliding scale insulin and monitor Accu-Cheks, stable. 4.Essential hypertension, stable on home medications. 5.Coronary artery disease [place] artery and [place] heart status post coronary artery bypass graft wi thout angina, stable. Patient is on aspirin and Plavix. 6.Mixed hyperlipidemia. We will continue statin. 7.Gastroesophageal reflux disease without esophagitis, stable. 8.Hypothyroidism. We will continue with Synthroid. 9.Chronic obstructive pulmonary disease, chronic bronchitis. Patient does have some wheezing. We w ill continue with nebulizer treatments. Patient requiring supplemental oxygen at this time. 10.Nicotine dependence with cigarette smoking, continuous. Patient has been counseled. 11.Status post abdominal aortic aneurysm repair. 12.Alzheimer dementia without behavioral disturbance, stable. Plan: DVT prophylaxis with Lovenox. Monitor blood cultures and sputum culture. Likely discharge in the next 24 to 48 hours depending on clinical response and if weaned off O2. Repeat chest x-ray if not clinically improving. SA/MODL Voice ID: [id number] Report ID: [id number]
[2019-08-07] MEDS: DONEPEZIL HCL 5 MG TAB PO SCH (20:23)
[2019-08-08] MEDS: NA CHLORIDE 0.9% 1,000 ML IV SCH ×3 (00:07→16:51)
[2019-08-08] MEDS: LEVOTHYROXINE SOD 0.025 MG TAB PO SCH (06:20)
[2019-08-08 06:29] LABS: Absolute Lymphocytes (CBC) 0.8 K/uL (0.7-4.9); Basophils % 0.1 % (0-1.3); Hematocrit 25.5 % (36.0-45.0); Lymphocytes % 5.2 % (15.3-44.8); MPV 10.2 fL (7.6-11.3)
[2019-08-08 07:10] LABS: Albumin 1.7 g/dL (3.4-5.0); Bilirubin Total 0.3 mg/dL (0.2-1.0); Potassium 3.7 mmol/L (3.5-5.1); Protein, Total 6.1 g/dL (6.4-8.2)
[2019-08-08] MEDS: INSULIN -REGULAR HUMAN 50 UNIT/0.5 ML ML SQ SCH ×4 (07:30→21:00)
[2019-08-08] MEDS: IPRATROPIUM BROM 0.5MG/2.5ML NEB PRN ×2 (08:40→13:45)
[2019-08-08] MEDS: ALBUTEROL 2.5 MG/3 ML NEB SOL NEB PRN ×2 (08:40→13:45)
[2019-08-08] MEDS ORDERED: POTASSIUM CL SA 10 MEQ TAB PO ONE (09:00)
[2019-08-08] MEDS: CEFTRIAXONE/SWI 1gm 1 GM/10 ML SYR IVP SCH ×2 (10:03→21:03)
[2019-08-08] MEDS: AZITHROMYCIN IV 500 MG in NA CHLORIDE 0.9% 250 ML IVPB SCH (10:03)
[2019-08-08] MEDS: ENOXAPARIN 30 MG/0.3 ML SQ SCH (10:03)
[2019-08-08] MEDS: METOPROLOL XL 25 MG TAB PO SCH (10:04)
[2019-08-08] MEDS: ESCITALOPRAM 20 MG TAB PO SCH (10:04)
[2019-08-08] MEDS: CLOPIDOGREL 75 MG TABLET PO SCH (10:05)
[2019-08-08] MEDS: ATORVASTATIN 40 MG TAB PO SCH (10:05)
[2019-08-08] MEDS: ASPIRIN 81 MG CHEWABLE TABLET PO SCH (10:05)
[2019-08-08] MEDS: MEMANTINE HCL 10 MG TABLET PO SCH ×2 (10:05→21:04)
[2019-08-08] MEDS: MEGESTROL 40 MG TAB PO SCH ×2 (10:05→21:03)
--- NOTE | 2019-08-08 14:54 | PN ---
Date of Progress Note: 08/08/2019 Subjective: Patient seen and examined. Chart reviewed and case discussed with RN. Patient found to have significant drainage from her right ear this morning. This has been ongoing for the past 3 day s. Medications List: Reviewed. Physical Examination: Vital Signs: Temperature 97.4, heart rate 70, blood pressure 172/84, respirations 18, O2 94% on 3 L via nasal cannula. General: Awake, alert, oriented x3. Elderly female, frail, somewhat cachectic BMI 19. Appears olde r than stated age. Laboratory Data: Sodium 146, potassium 3.7, chloride 115, CO2 24, BUN 23, creatinine 1.11, glucose 1 04, calcium 8.2, albumin 1.7. WBC 15.6, H and H 8.7 and 25.5, platelets 204, neutrophils 84%. Blood cultures, no growth to date. Sputum cultures pending. Assessment: 79-year-old female with: 1.Right upper lobe pneumonia. Continue with IV antibiotics. Cultures negative to date. Still requ iring supplemental oxygen. We will continue to monitor closely. Repeat chest x-ray if no clinical i mprovement. 2.Acute respiratory failure with hypoxia on 3 L via nasal cannula. Continue to wean as tolerated. 3.Right ear infection. Patient has significant amount of yellow drainage. We will need ENT followu p as an outpatient. Continue with antibiotics for now. 4.Essential hypertension, stable. 5.Coronary artery disease, [place] artery and [place] heart status post coronary artery bypass graft w ithout angina, stable. Continue aspirin and Plavix. 6.Mixed hyperlipidemia. We will continue statin. 7.Gastroesophageal reflux disease without esophagitis, stable. 8.Hypothyroidism. Continue Synthroid. 9.Chronic obstructive pulmonary disease, chronic bronchitis. Continue with nebulizer treatments. 10.Nicotine dependence with cigarette smoking, continuous. 11.Status post abdominal aortic aneurysm repair. 12.Alzheimer dementia without behavioral disturbance, stable. Plan: Likely discharge in the next 24 hours depending on clinical response, weaned off O2. SA/MODL Voice ID: [id number] Report ID: [id number]
[2019-08-08] MEDS: DONEPEZIL HCL 5 MG TAB PO SCH (21:04)
[2019-08-09] MEDS: NA CHLORIDE 0.9% 1,000 ML IV SCH (04:00)
[2019-08-09] MEDS: LEVOTHYROXINE SOD 0.025 MG TAB PO SCH (05:27)
[2019-08-09 05:30] LABS: Absolute Lymphocytes (CBC) 1.2 K/uL (0.7-4.9); Basophils % 0.4 % (0-1.3); Hematocrit 25.6 % (36.0-45.0); Lymphocytes % 9.5 % (15.3-44.8); RBC Red Blood Cell Count 2.71 M/uL (3.86-4.86)
[2019-08-09 05:45] LABS: Albumin 1.7 g/dL (3.4-5.0); Bilirubin Total 0.2 mg/dL (0.2-1.0); Magnesium 1.7 mg/dL (1.8-2.4); Protein, Total 6.1 g/dL (6.4-8.2)
[2019-08-09] MEDS: INSULIN -REGULAR HUMAN 50 UNIT/0.5 ML ML SQ SCH ×4 (07:30→21:00)
[2019-08-09] MEDS ORDERED: MAGNESIUM SULFATE 1 gm IVPB 1 GM/100 ML BAG IV ONE (09:00)
[2019-08-09] MEDS: CEFTRIAXONE/SWI 1gm 1 GM/10 ML SYR IVP SCH ×2 (09:19→21:15)
[2019-08-09] MEDS: MEGESTROL 40 MG TAB PO SCH ×2 (09:19→21:19)
[2019-08-09] MEDS: METOPROLOL XL 25 MG TAB PO SCH (09:20)
[2019-08-09] MEDS: ENOXAPARIN 30 MG/0.3 ML SQ SCH (09:20)
[2019-08-09] MEDS: CLOPIDOGREL 75 MG TABLET PO SCH (09:20)
[2019-08-09] MEDS: ESCITALOPRAM 20 MG TAB PO SCH (09:20)
[2019-08-09] MEDS: ASPIRIN 81 MG CHEWABLE TABLET PO SCH (09:20)
[2019-08-09] MEDS: ATORVASTATIN 40 MG TAB PO SCH (09:20)
[2019-08-09] MEDS: MEMANTINE HCL 10 MG TABLET PO SCH ×2 (09:20→21:16)
[2019-08-09] MEDS: AZITHROMYCIN IV 500 MG in NA CHLORIDE 0.9% 250 ML IVPB SCH (09:21)
[2019-08-09] MEDS ORDERED: POLYETHYL GLY 3350 17 GM/DOSE PO PRN (09:48)
--- NOTE | 2019-08-09 12:50 | RAD REPORT ---
EXAM DESCRIPTION: RAD - Chest Single View - 08/09/2019 12:40 pm CLINICAL HISTORY: cough, SOB Chest pain. COMPARISON: Chest Single View dated 08/06/2019; Chest Single View dated 11/26/2017; Chest Single View dated 11/10/2017; Chest Single View dated 09/05/2017 FINDINGS: Portable technique limits examination quality. Since the comparative study dated 08/06/2019, there has been mild worsening in the right upper lobe, right lower lobe and left lung base infiltrates. This is compatible with worsening pneumonia. The hea rt is normal in size. Changes of prior CABG seen. IMPRESSION: Mild worsening in the multifocal pneumonia since comparative study.
--- NOTE | 2019-08-09 13:12 | RAD REPORT ---
EXAM DESCRIPTION: CT - Head Brain Wo Cont - 08/09/2019 1:01 pm CLINICAL HISTORY: Transient alteration of awareness COMPARISON: CT head June 28, 2019 TECHNIQUE: Axial 5 mm thick images of the head were obtained without IV contrast. All CT scans are performed using dose optimization technique as appropriate and may include automated exposure control or mA/KV adjustment according to patient size. FINDINGS: No intracranial hemorrhage, mass, edema or shift of mid-line structures. No cortical edema or sulcal effacement. No acute cortical based infarction seen. Moderate atrophy and mild chronic isc hemic pattern similar to comparison. No abnormal extra-axial fluid collections. Ventricles are in pro portion to volume loss. Arterial and physiologic calcifications are present. There is complete opacification of the mastoid air cells. Bilateral middle ear opacification is prese nt. There is complete opacification of the sphenoid, ethmoid and left frontal sinuses. Right frontal sinus is not pneumatized. Minimal air-fluid levels are present in each maxillary sinus. Sinus finding s are new or progressive from comparison. No acute bony findings. IMPRESSION: Atrophy and chronic ischemic changes are present with no acute intracranial finding. Int racranial findings are stable. Mastoiditis and sinusitis findings are present progressive from June 2019 imaging.
[2019-08-09] MEDS ORDERED: PSEUDOEPHEDRINE 30 MG TAB PO PRN (15:24)
--- NOTE | 2019-08-09 17:14 | PN ---
Date of Progress Note: 08/09/2019 Subjective: Patient is seen and examined. Chart reviewed and case discussed with RN. Patient is still complaining of some drainage from the ear. Otherwise , on oxygen via nasal cannula, but has not really moved around too much. Unable to tell me if she is dyspneic on exertion. Medication was reviewed. Physical Examination: Vital Signs: Temperature 98.3, heart rate 64, blood pressure 150/72, respirations 20, O2 93% on 2 L via nasal cannula. General: Awake, alert, oriented x3. Does not appear to be in any acute distress, slightly ill-appearing, frail, appears older than stated age, cachectic. BMI 19. CV: S1, S2. Peripheral pulses weak. Respiratory: Diminished breath sounds. Minimal rhonchi. No wheezing. Gastrointestinal: Abdomen is soft, nontender, nondistended. Positive bowel sounds. Extremities: No clubbing, cyanosis, or edema. Neurologic: Nonfocal. Laboratory Data: Sodium 143, potassium 4, chloride 113, CO2 of 24, BUN 18, creatinine 1.01, glucose 82, calcium 8.1, magnesium 1.7, AST 38, ALT 26, albumin 1.7. Procalcitonin 0.28. WBC 13, H and H 8.5 and 25.6, platelets 214, neutrophils 81%. Cultures show no growth to date. Assessment And Plan: A 79-year-old female with. 1. Right upper lobe pneumonia. Continue with IV antibiotics. No growth on the cultures. We will try to wean off O2, currently on 2 L. We will repeat chest x-ray. 2. Acute respiratory failure with hypoxia, now on 2 L. We will check room air saturation and may need to set up oxygen as an outpatient. 3. Acute otitis media. Patient has significant purulent drainage, likely ENT followup as outpatient, may have perforation. Continue with IV antibiotics, covered with Rocephin. 4. Essential hypertension, stable. 5. Coronary artery disease. [place] artery and [place] heart, status post coronary artery bypass graft without angina, stable. Continue aspirin and Plavix. 6. Mixed hyperlipidemia. Continue statin. 7. Gastroesophageal reflux disease without esophagitis, stable. 8. Hypothyroidism, on Synthroid. 9. Chronic obstructive pulmonary disease, chronic bronchitis. Continue with albuterol p.r.n. 10. Nicotine dependence with cigarette smoking continuous, counseled. 11. Status post abdominal aortic aneurysm repair, stable. 12. Alzheimer dementia without behavioral disturbance, stable. 13. Deep vein thrombosis prophylaxis. Patient is on Lovenox. Plan, we will follow up on chest x-ray. Set up home O2 if needed. ENT outpatient followup. 14. Hypomagnesemia. We will replace and monitor. 15. Severe protein-calorie malnutrition. Albumin is 1.7. Dietitian consult. Protein supplementation. ADDENDUM: Spoke with Dr. Neville. Head CT shows mastoiditis SA/MODL Voice ID: [id number] Report ID: [id number] MTDD
[2019-08-09] MEDS ORDERED: DOCUSATE NA 100 MG CAP PO SCH (21:00)
[2019-08-09] MEDS: DONEPEZIL HCL 5 MG TAB PO SCH (21:16)
[2019-08-09] MEDS: GUAIFENESIN 600 MG SA TAB PO SCH (21:16)
[2019-08-10] MEDS: LEVOTHYROXINE SOD 0.025 MG TAB PO SCH (05:26)
[2019-08-10 05:48] LABS: Absolute Lymphocytes (CBC) 1.3 K/uL (0.7-4.9); Basophils % 0.2 % (0-1.3); Lymphocytes % 10.8 % (15.3-44.8); RBC Red Blood Cell Count 2.89 M/uL (3.86-4.86)
[2019-08-10 06:02] LABS: Albumin 1.7 g/dL (3.4-5.0); Bilirubin Total 0.4 mg/dL (0.2-1.0); Magnesium 2.1 mg/dL (1.8-2.4); Protein, Total 6.4 g/dL (6.4-8.2)
[2019-08-10] MEDS: INSULIN -REGULAR HUMAN 50 UNIT/0.5 ML ML SQ SCH ×4 (07:30→21:00)
[2019-08-10] MEDS ORDERED: ENOXAPARIN 40 MG/0.4 ML SQ SCH (09:00)
[2019-08-10] MEDS: MEGESTROL 40 MG TAB PO SCH ×2 (09:00→21:00)
[2019-08-10] MEDS: AZITHROMYCIN IV 500 MG in NA CHLORIDE 0.9% 250 ML IVPB SCH (09:00)
[2019-08-10] MEDS: ESCITALOPRAM 20 MG TAB PO SCH (09:44)
[2019-08-10] MEDS: CLOPIDOGREL 75 MG TABLET PO SCH (09:44)
[2019-08-10] MEDS: METOPROLOL XL 25 MG TAB PO SCH (09:44)
[2019-08-10] MEDS: ATORVASTATIN 40 MG TAB PO SCH (09:44)
[2019-08-10] MEDS: GUAIFENESIN 600 MG SA TAB PO SCH ×2 (09:44→21:00)
[2019-08-10] MEDS: CEFTRIAXONE/SWI 1gm 1 GM/10 ML SYR IVP SCH ×2 (09:45→20:59)
[2019-08-10] MEDS: MEMANTINE HCL 10 MG TABLET PO SCH ×2 (09:45→21:00)
[2019-08-10] MEDS: ASPIRIN 81 MG CHEWABLE TABLET PO SCH (09:45)
[2019-08-10] MEDS ORDERED: ENOXAPARIN 30 MG/0.3 ML SQ SCH (17:00)
--- NOTE | 2019-08-10 17:12 | P.PN ---
Subjective Date of Service: 08/10/19 Chief Complaint: Cough and shortness of breath Subjective: No new changes Patient reports persistent draining from the right ear. She also reports nasal discharge. CT head report bilateral mastoid air cells, middle ear opacifications and evidence of sal sinusitis. She has been afebrile and requiring oxygen. She was 88% on room air today. Physical Examination - Vital Signs Temperature: 97.5 F Blood Pressure: 134/65 Pulse: 61 Respirations: 19 Pulse Ox (%): 95 - Physical Exam General: Alert, In no apparent distress, Oriented x3 HEENT: Atraumatic, Normocephalic, Mucous membr. moist/pink, Sclerae nonicteric Neck: Supple, JVD not distended Respiratory: Clear to auscultation bilaterally, Normal air movement Cardiovascular: No edema, Regular rate/rhythm, Normal S1 S2 Capillary refill: <2 Seconds Gastrointestinal: Normal bowel sounds, Soft and benign, Non-distended, No tenderness Musculoskeletal: No swelling Integumentary: No rashes Neurological: Normal speech, Normal strength at 5/5 x4 extr Assessment And Plan - Current Problems (Diagnosis) (1) Acute respiratory failure with hypoxemia Current Visit: Yes Status: Acute (2) Right upper lobe pneumonia Current Visit: Yes Status: Acute (3) Sinusitis Current Visit: Yes Status: Acute (4) Acute otitis media Current Visit: Yes Status: Acute (5) Diabetes mellitus Onset Date: 05/22/17 Current Visit: No Status: Chronic Qualifiers: (6) COPD (chronic obstructive pulmonary disease) Onset Date: 05/22/17 Current Visit: No Status: Chronic Qualifiers: (7) Nicotine dependence Current Visit: No Status: Chronic Qualifiers: (8) Hypoalbuminemia Current Visit: Yes Status: Acute - Plan Patient seen by ENT-Dr. Schwartz. She recommend comprehensive ear examination in the office. Continue current antibiotics-IV Rocephin and Zithromax Start ofloxacin ear drops. Weaned off oxygen as tolerated Bronchodilator treatment. Follow up with ENT as an outpatient. Nutritional supplementation.
[2019-08-10] MEDS: DONEPEZIL HCL 5 MG TAB PO SCH (21:00)
[2019-08-11 06:18] LABS: Absolute Lymphocytes (CBC) 1.2 K/uL (0.7-4.9); Basophils % 0.2 % (0-1.3); Hematocrit 26.3 % (36.0-45.0); Lymphocytes % 10.2 % (15.3-44.8); MPV 10.2 fL (7.6-11.3); RBC Red Blood Cell Count 2.82 M/uL (3.86-4.86)
[2019-08-11 06:31] LABS: Potassium 3.8 mmol/L (3.5-5.1)
[2019-08-11] MEDS: LEVOTHYROXINE SOD 0.025 MG TAB PO SCH (06:37)
[2019-08-11] MEDS: INSULIN -REGULAR HUMAN 50 UNIT/0.5 ML ML SQ SCH ×2 (07:30→11:30)
[2019-08-11] MEDS ORDERED: OFLOXACIN OPH 0.3%-5 ML BTL OTIC SCH ×2 (09:00)
[2019-08-11] MEDS ORDERED: POTASSIUM CL SA 10 MEQ TAB PO ONE (09:00)
[2019-08-11] MEDS: ATORVASTATIN 40 MG TAB PO SCH (09:24)
[2019-08-11] MEDS: AZITHROMYCIN IV 500 MG in NA CHLORIDE 0.9% 250 ML IVPB SCH (09:24)
[2019-08-11] MEDS: MEGESTROL 40 MG TAB PO SCH (09:25)
[2019-08-11] MEDS: CLOPIDOGREL 75 MG TABLET PO SCH (09:25)
[2019-08-11] MEDS: METOPROLOL XL 25 MG TAB PO SCH (09:25)
[2019-08-11] MEDS: CEFTRIAXONE/SWI 1gm 1 GM/10 ML SYR IVP SCH (09:25)
[2019-08-11] MEDS: ASPIRIN 81 MG CHEWABLE TABLET PO SCH (09:26)
[2019-08-11] MEDS: MEMANTINE HCL 10 MG TABLET PO SCH (09:26)
[2019-08-11] MEDS: ESCITALOPRAM 20 MG TAB PO SCH (09:26)
[2019-08-11] MEDS: GUAIFENESIN 600 MG SA TAB PO SCH (09:26)
--- NOTE | 2019-08-11 10:53 | CON ---
Date of Consultation: 08/10/2019 Reason For Consultation: Ear drainage. History Of Present Illness: Ms. Guerrero is a 79-year-old white female who was admitted over the weekend for pneumonia. There are reports and documentation of drainage from the right ear, for which an ENT consultation was requested. The patient is not able to offer much significant clinical information the with regard to past or current history and most of the following information is obtained from the patient's chart since there is no family or friend at the bedside to provide additional information. I am unable to determine the duration of the ear drainage, any significant prior otologic history i n regard to ear infections, ear drainage, or other pertinent information. The patient is admitted for pneumonia. She has a history of COPD, nicotine dependence, Alzheimer dem entia, coronary artery disease, and was admitted for a progressive 2-week shortness of breath with pr oductive cough and is currently on IV antibiotics. Past Medical History: Coronary artery disease, diabetes type 2, hypertension, hyperlipidemia, gastro esophageal reflux, COPD, abdominal aortic aneurysm, chronic headaches. Surgical History: AAA repair, hysterectomy, appendectomy, coronary artery bypass and right hip open reduction internal fixation. Allergies: IODINE. Medications: Current medication list is reviewed. Social History: No alcohol. Tobacco use, 1 pack per day for greater than 30 years. The patient is a and has 3 children. She lives alone but does have home health for assistance with activities of daily living. Family History: Father with cancer. Mother with cancer. Review of Systems: Reviewed in the history and physical performed by Dr. Limon on 08/06/2019 and is not significantly ch anged. Physical Examination: General: The patient is awake. She appears alert. She is minimally responsive to questions. I am unclear if she has poor understanding of the questions or if there are other considerations. HEENT: She is normocephalic and atraumatic. Her pupils are equal, round, and reactive. Her left ea r, the deep portion of the canal is occluded by cerumen and I am unable to view the tympanic membrane . On the right ear, there is no significant crusting or evidence of active drainage within the conch a. The canal is likewise occluded with cerumen and debris. I am unable to view the tympanic membran e. The patient's nares are dry due to supplemental oxygen use. There is mild crusting and bloody cr usts within the nasal cavity. The nasal septum does not appear to be deviated. I do not see any act nila purulence draining from the middle meatus at this time. Data: The patient underwent a CT scan of the head yesterday, which demonstrated opacification of the sphenoid, ethmoid, and frontal sinuses with relative sparing of the maxillary sinuses. There is als o minimal development overall of the frontal sinuses. The right frontal sinus is undeveloped. There is a large right bobbi bullosa, which is opacified. The patient's bilateral mastoid air cells and middle ear appear opacified and there is opacification of the right ear canal. I am unable to determ ine at this time if that opacification represents drainage versus cerumen on the imaging studies. The patient underwent a CT scan of the head on June 28, 2019, approximately 6 weeks prior to this evaluation. At that time, the mastoid, middle ear, ethmoid and frontal sinuses were all completely c lear. There was a scant area of opacification in the right sphenoid sinus. The indications for this scan are not available to me at this time. Additional CT scan of the head from April of 2019 likew ise shows the patient's sinuses were clear. Overall, this review suggests that the findings are acut e and may be associated with the patient's current infection, but is not likely to be a chronic under lying issue. Laboratory Data: The patient's white count was significantly elevated at the time of admission, but is slowly trending downward over the last 4 days. Assessment: Frontal, ethmoid, and sphenoid sinusitis. Plan: The patient will need a more comprehensive otologic exam in the ENT Clinic after discharge in order to clean the ears. The available equipment including operating microscope and suction as well as the instrumentation is not available at the patient's bedside. I would recommend Afrin nasal spra y twice a day for 3 days to aid in decongestion of the nasal cavity and continue antibiotics for pneu monia and sinusitis, although there is opacification of the mastoid air cells. There is no clinical evidence of mastoiditis at this time in terms of redness, swelling, or tenderness over the mastoid an d therefore simple antibiotic therapy is appropriate. Nasal saline and humidification of supplementa l oxygen are recommended. Due to complaints of ear drainage, topical ofloxacin drops can also be use d in light of uncertain middle ear status. KELSI/LESA Voice ID: [id number] Report ID: [id number]
[2019-08-11 11:57] VITALS: O2SAT 90
--- NOTE | 2019-08-11 12:09 | P.DS ---
Admission Date: 08/06/19 Discharge Date: 08/11/19 Disposition: DC HOME/HOME HEALTH CARE Discharge Condition: FAIR Reason for Admission: Cough and shortness of breath Consultations: ENT-Dr. Neville - Problems (1) Acute respiratory failure with hypoxemia Current Visit: Yes Status: Acute (2) Right upper lobe pneumonia Current Visit: Yes Status: Acute (3) Sinusitis Current Visit: Yes Status: Acute (4) Acute otitis media Current Visit: Yes Status: Acute (5) Diabetes mellitus Onset Date: 05/22/17 Current Visit: No Status: Chronic Qualifiers: (6) COPD (chronic obstructive pulmonary disease) Onset Date: 05/22/17 Current Visit: No Status: Chronic Qualifiers: (7) Nicotine dependence Current Visit: No Status: Chronic Qualifiers: (8) Hypoalbuminemia Current Visit: Yes Status: Acute Brief History of Present Illness: 79-year-old woman with a history of COPD, chronic smoker, Alzheimer dementia and coronary artery disease presented to the emergency department with a complaint of shortness of breath which has been progressive over a period of 2 weeks. Patient was noted to be hypoxic in the ED. Chest x-ray demonstrated right upper lobe pneumonia and superimposed interstitial edema. Her white cell count was elevated to 18,000. Patient was admitted for further management of pneumonia with hypoxia. Hospital Course: Patient was treated aggressively with IV antibiotic-Rocephin and Zithromax. She was also treated with scheduled Nebulizers. She later complained of discharge from both right ear. CT head done reported pansinusitis, opacities in the bilateral mentally suggestive of otitis media and opacities in the bilateral mastoid air cells. She was evaluated by ENT and recommended to continue antibiotics. She was started on Ofloxacin ear drops. ENT-Dr. Neville recommended her comprehensive examination and cleaning in the office. Her oxygen was weaned down to 2 liters/minute. Patient is saturating 82% on room air. She qualifies for home oxygen. She has clinically improved and desires to go home. She is deemed clinically stable for discharge. Patient is discharged with home oxygen. She has been informed to avoid smoking. She has also been informed that oxygen is combustible and can explode all burn her face if she smokes with the oxygen on. She has home health which is resumed on discharge. A prescription for refill of her nebulizers have also been given. She is also prescribed Augmentin continue treatment for the sal sinusitis and the otitis media. She is discharged to follow with Dr. Neville for ENT examination. Vital Signs/Physical Exam: Temp Pulse Resp BP Pulse Ox 97.9 F 62 20 121/62 92 08/11/19 11:56 08/11/19 11:56 08/11/19 11:56 08/11/19 11:56 08/11/19 11:56 General: Alert, In no apparent distress, Oriented x3 HEENT: Mucous membr. moist/pink Neck: Supple, JVD not distended Respiratory: Clear to auscultation bilaterally, Normal air movement Cardiovascular: No edema, Regular rate/rhythm, Normal S1 S2 Capillary refill: <2 Seconds Gastrointestinal: Normal bowel sounds, Soft and benign, Non-distended, No tenderness Musculoskeletal: No swelling Integumentary: No rashes Neurological: Normal speech Laboratory Data at Discharge: WBC 11.4 K/uL (4.3-10.9) H 08/11/19 05:11 Hgb 8.7 g/dL (12.0-15.0) L 08/11/19 05:11 Hct 26.3 % (36.0-45.0) L 08/11/19 05:11 Plt Count 256 K/uL (152-406) 08/11/19 05:11 PT 12.6 SECONDS (9.5-12.5) H 08/06/19 11:55 INR 1.07 08/06/19 11:55 APTT 28.4 SECONDS (24.3-36.9) 08/06/19 11:55 Sodium 140 mmol/L (136-145) 08/11/19 05:11 Potassium 3.8 mmol/L (3.5-5.1) 08/11/19 05:11 BUN 24 mg/dL (7-18) H 08/11/19 05:11 Creatinine 0.96 mg/dL (0.55-1.3) 08/11/19 05:11 Glucose 77 mg/dL (74-106) 08/11/19 05:11 Phosphorus 3.3 mg/dL (2.5-4.9) 08/07/19 05:09 Magnesium 2.1 mg/dL (1.8-2.4) 08/10/19 05:15 Total Bilirubin 0.4 mg/dL (0.2-1.0) 08/10/19 05:15 AST 41 U/L (15-37) H 08/10/19 05:15 ALT 30 U/L (12-78) 08/10/19 05:15 Alkaline Phosphatase 92 U/L (45-117) 08/10/19 05:15 Lipase 151 U/L (73-393) 08/06/19 11:55 Home Medications: Atorvastatin Calcium [Lipitor] 40 mg PO DAILY 06/04/19 Clopidogrel Bisulfate [Plavix*] 75 mg PO DAILY 06/04/19 Donepezil HCl [Aricept] 10 mg PO DAILY 06/04/19 Escitalopram [Lexapro*] 10 mg PO DAILY 06/04/19 Levothyroxine [Synthroid*] 25 mcg PO [id number] 06/04/19 Megestrol [Megace*] 20 mg PO BID 06/04/19 Megestrol [Megace*] 40 mg PO DAILY 06/04/19 Memantine HCl [Namenda*] 10 mg PO BID 06/04/19 Metoprolol Succinate [Toprol Xl*] 25 mg PO DAILY 06/04/19 Aspirin Chewable [Aspirin Chewable*] 81 mg PO DAILY 08/06/19 Iron/FA/Vit B-Com W/C [Hemocyte Plus*] 1 tab PO DAILY 08/06/19 Nitroglycerin [Nitrostat*] 0.4 mg SL DIRECTED PRN 08/06/19 Tramadol HCl [Ultram] 50 mg PO Q6HP PRN 08/06/19 Zolpidem Tartrate [Ambien*] 10 mg PO BEDTIME PRN PRN 08/06/19 Albuterol Neb [Proventil 0.083% Neb Soln] 2.5 mg NEB Q6HP PRN #120 amp 08/11/19 Albuterol Sulfate [Proair Hfa] 2 puff IH QIDP PRN #1 hfa.aer.ad 08/11/19 Amox/Clavulanate [Augmentin 875-125 Tab] 1 each PO BID #14 tab 08/11/19 Ipratropium Neb [Atrovent*] 0.5 mg NEB Q6HR #120 amp 08/11/19 Ofloxacin Oph [Floxin Otic 0.3%*] 10 drops OTIC BID 14 Days btl 08/11/19 Oxymetazoline 0.05% [Afrin] 2 spray NS BID #1 btl 08/11/19 New Medications: Albuterol Neb [Proventil 0.083% Neb Soln] 2.5 mg NEB Q6HP PRN #120 amp PRN Reason: Shortness Of Breath Ipratropium Neb [Atrovent*] 0.5 mg NEB Q6HR #120 amp Albuterol Sulfate [Proair Hfa] 2 puff IH QIDP PRN #1 hfa.aer.ad PRN Reason: Shortness Of Breath Amox/Clavulanate [Augmentin 875-125 Tab] 1 each PO BID #14 tab Ofloxacin Oph [Floxin Otic 0.3%*] 10 drops OTIC BID 14 Days btl Oxymetazoline 0.05% [Afrin] 2 spray NS BID #1 btl Diet: AHA Activity: Fall precautions Followup: Merari Neville MD [ACTIVE - CAN ADMIT] - 1 Week
[2019-08-11 12:33] VITALS: BP 106/58; TEMP 97.6
[2019-08-11] MEDS ORDERED: ENOXAPARIN 40 MG/0.4 ML SQ SCH (17:00)
== END 2019-08-11 14:46 | disposition home health service (06) | DRG 193 ==
LOC: ER 11:28 → ERHOLD 13:39 → 2ND 14:32
PROVIDERS: ADMIT Family Medicine; ATTEND Internal Medicine
DX: J18.9 Pneumonia, unspecified organism (principal); J96.01 Acute respiratory failure with hypoxia; E43 Unspecified severe protein-calorie malnutrition; Z68.1 Body mass index [BMI] 19.9 or less, adult; E11.9 Type 2 diabetes mellitus without complications; I25.10 Atherosclerotic heart disease of native coronary artery without angina pectoris; G30.9 Alzheimer's disease, unspecified; F02.80 Dementia in other diseases classified elsewhere, unspecified severity, without behavioral disturbance, psychotic disturbance, mood disturbance, and anxiety; K21.9 Gastro-esophageal reflux disease without esophagitis; E83.42 Hypomagnesemia; F17.210 Nicotine dependence, cigarettes, uncomplicated; H66.91 Otitis media, unspecified, right ear; J01.10 Acute frontal sinusitis, unspecified; J01.20 Acute ethmoidal sinusitis, unspecified; J01.30 Acute sphenoidal sinusitis, unspecified; I10 Essential (primary) hypertension; E03.9 Hypothyroidism, unspecified; J44.9 Chronic obstructive pulmonary disease, unspecified; E78.2 Mixed hyperlipidemia; I71.4 Abdominal aortic aneurysm, without rupture; Z95.1 Presence of aortocoronary bypass graft
CPT/HCPCS: 36415; 70450; 71045; 80048; 80053; 80076; 82550; 82553; 82947; 83605; 83690; 83735; 84100; 84145; 84484; 85025; 85610; 85730; 87040; 87804; 92610; 93005; 94640; 94760; 97161; 97530; 99285; J0456; J0696; J1650; J3475; J7030

== ENCOUNTER 2020-05-11 22:47 | Emergency (ER) | payer OTHER ==
--- OUTSIDE RECORDS SUMMARY | 2020-05-11 22:53 | XMS REPORT | Clinical Summary ---
:1940 Author Organization [facility] Address [address] [place] [address] Care Team Providers Name Role Phone Asked, Pcp Primary Care Provider Unavailable Allergies Active Allergy Reactions Severity Noted Date Comments Azithromycin Iodine 11/10/2017 Iodine And Iodide Containing Hives 05/22/1977 Pt does eat shrimps and Products other seafood. Medications Medication Sig Dispensed Refills Start Date End Date Status aspirin (ECOTRIN) 81 MG Take 81 mg by 0 12/16/2016 Active enteric coated tablet mouth. Active Problems No known active problems Social History Tobacco Use Types Packs/Day Years Used Date Former Smoker 1 Quit: 09/08/19 19 Smokeless Tobacco: Never Used Alcohol Use Drinks/Week oz/Week Comments No Sex Assigned at Date Recorded Not on file Job Start Date Occupation Industry Not on file Not on file Not on file Travel History Travel Start Travel End No recent travel history available. Last Filed Vital Signs Not on file Plan of Treatment Health Maintenance Due Date Last Done Comments DIABETIC RETINAL EYE EXAM 1940 DIABETIC FOOT EXAM 1950 URINE MICROALBUMIN 1950 SHINGLES VACCINES (#1) 1990 65+ PNEUMOCOCCAL VACCINE (1 of 2 - PCV13) 2005 INFLUENZA VACCINE 06/08/2020 Results Not on fileafter 05/11/2019 Insurance Payer Benefit Plan / Subscriber ID Effective Dates Phone Addre ss Type Group MEDICARE MEDICARE PART A xxxxxxxxxx 2005-Present ALONDRA GOTTLIEB Medicare AND B FOR LIFE xxxxxxxxx 2017-Present [employer] SUPPLEMENT Advance Directives For more information, please contact: [phone] Type Date Recorded 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
--- OUTSIDE RECORDS SUMMARY | 2020-05-11 22:54 | XMS REPORT | Clinical Summary ---
:1940 Author Organization Personally Address [address] [place] [address] Care Team Providers Name Role Phone [facility] Allergies Active Allergy Reactions Severity Noted [...] daily. calcium Take 1 tablet by 0 Act nila carbonate-vitamin D3 mouth 2 (two) (CALCIUM-VITAMIN D) [...] MOUTH DAILY MG tablet metoprolol (TOPROL-XL) TAKE / 30 tablet 0 07/25/2017 Active 25 MG 24 hr tablet TABLET(12.5 MG) BY MOUTH DAILY Active Problems Problem Noted Date Diabetes mellitus 05/25/2017 Acute pulmonary insufficiency following thoracic surge ry 05/24/2017 Encephalopathy acute 05/24/2017 Cardiogenic shock 05/24/2017 COPD (chronic obstructive pulmonary disease) 7 Hyperchloremic metabolic acidosis 05/24/2017 Acute blood loss anemia 05/24/2017 Acute respiratory insufficiency, postoperative 017 Hypoxemia 05/23/2017 Hemoptysis 05/23/2017 NSTEMI (non-ST elevated myocardial infarction) 017 Family History Medical History Relation Name Comments Cancer Father Cancer Mother Cancer Sister Relation Name Status Comments Father Mother Sister Social History Tobacco Use Types Packs/Day Years Used Date Former Smoker 0.5 60 Quit: 05/21/20 17 Smokeless Tobacco: Never Used Tobacco Cessation: Counseling [...] Maintenance Due Date Last Done Comments DIABETIC EYE EXAM 1950 DIABETIC FOOT EXAM 1950 URINE MICROALBUMIN 1950 PNEUMOCOCCAL 65+ LOW/MEDIUM RISK (1 of 2 - PCV13) 2005 MEDICARE ANNUAL WELLNESS (YEAR 2 or FIRST YEAR if no 05/10/2006 IPPE) HEMOGLOBIN A1C 11/19/2017 05/22/2017 INFLUENZA VACCINE (#1) 2020 Results Not on fileafter 05/11/2019 Insurance Payer Benefit Plan / Group Subscriber ID Type Phone A ddress MEDICARE MEDICARE A B xxxxxxxxxx Medicare FOR LIFE xxxxxxxxx Other Govt (, [place], [facility], etc.) Advance Directives For more information, please contact:[facility] [place], [place] [phone] Code Status Date Activated Date Inactivated Comments Full Code 05/22/2017 5:29 PM 05/28/2017 5:07 PM This code status was determined by: Patient Name Relationship Healthcare Agent Relationship Ph one Esequiel,Sindy Sister First alternate healthcare agent [phone]
--- OUTSIDE RECORDS SUMMARY | 2020-05-11 22:57 | XMS REPORT | Continuity of Care Document ---
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 of oral Medical hypoglycemic drugs 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 Medic al therapy Center Urinary tract 10/08/2018 Derrell cotter infection, site not Medical specified Center Unspecified 10/08/2018 [place] suggs protein-calorie Medi ana malnutrition Center Type 2 diabetes 10/08/2018 [facility] mellitus with Medica l diabetic chronic Jimmy ter kidney disease Emphysema, 10/08/2018 [facility] Medical Center Anemia, unspecified 10/08/2018 [facility] Center Unspecified 10/08/2018 Antolin suggs dementia without Med ical behavioral Center disturbance Chronic kidney 10/08/2018 [facility] exas disease, Medical unspecified 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) 10/08/2018 [facility] use of aspirin Medic al Center Personal history of 10/08/2018 [facility] other diseases of Me dical the circulatory Cent er system Body mass index 10/08/2018 [facility] (BMI) 21.0-21.9, Med ical adult Center DVTRCLI OF INTEST, Active M [facility] [place] PART UNSP, W/O PERF Medical O Center FEMALE PELVIC Active Arnel as INFLAMMATORY Medical DISEASE, [facility] Center Medications Medication Details Route Status Patient Ordering Order Source Instructions Provider Date Memantine 10 mg = 1 tab, Active 06/23/ Mischer hydrochloride 10 PO, BID, # 60 2019 N euro MG Oral Tablet tab, 6 Refill(s), [Namenda] [facility] donepezil 10 mg = 1 tab, PO, Active 04/08/ Mis jenny oral tablet Daily, # 30 tab, 2019 Ceci ro 3 Refill(s), Pharmacy: [facility] #[id number] Memantine 10 mg = 1 tab, Active 04/08/ Mischer hydrochloride 10 PO, BID, # 60 2019 N euro MG Oral Tablet tab, 6 Refill(s), [Namenda] Pharmacy: [facility] #[id number] donepezil 10 mg = 1 tab, PO, No Longer 03/30/ M ischer oral tablet Daily, # 30 tab, Active 2018 Ceci ro 3 Refill(s), [facility] donepezil 10 mg = 1 tab, PO, Active 01/14/ Mis jenny oral tablet Daily, # 90 tab, 2019 Ceci ro Refill(s) 1, Pharmacy: [facility] donepezil 10 mg 10 mg = 1 tab, No Longer 08/05/ Mischer oral tablet PO, Daily, # 90 Active 2018 Neur o tab, 1 Refill(s), Pharmacy: [facility] GoLYTELY oral See Instructions, Active 02/24/ EDDC powder for Take as directed 2018 reconstitution by physician. Give Jug., # 1 ea, 0 Refill(s), Pharmacy: [facility] [id number] ciprofloxacin 500 500 mg = 1 tab, No Longer 11/07 5/ [facility] [place] mg oral tablet PO, Q12H, X 8 Active 2018 Med ica day, # 16 tab, 0 Center Refill(s) Metronidazole 500 500 mg = 1 tab, No Longer 11/07/ [facility] [place] MG Oral Tablet PO, TID, X 8 day, Active 2018 Medical # 24 tab, 0 Center Refill(s) Metronidazole 500 500 mg = 1 tab, Inactive 11/30 / [facility] [place] MG Oral Tablet PO, TID, X 8 day, 2018 Medical # 24 tab, 0 Center Refill(s) ciprofloxacin 500 500 mg = 1 tab, Inactive 11/30 [facility] mg oral tablet PO, Q12H, X 8 2018 Med ical day, # 16 tab, 0 Center Refill(s) heparin Notes: porcine [place] Longer [place] heparin Active 2018 [facility] Center NS (Bolus) IV 1,000 mL, 500 Inactive [place] ml/hr, Infuse 2018 Medical Over: 2 hr, Center Route: IV, 1,000, Drug form: INJ, ONCE, Priority: STAT, Dosing Weight 54.602 kg, Start date: 11/29/17 11:48:00 CDT, Stop date: 11/29/17 11:48:00 CDT Tramadol Notes: Not to [place] Longer [place] exceed 400mg/day. Active 2018 Medica l (Same As: Ultram) [place] Tylenol Notes: Do not No Longer [place] exceed 4 gm/day. Active 2018 Medical (Same as: [place] Tylenol) Midazolam 1 mg, Route: IVP, Inactive [place] Drug form: INJ, 2018 Medical ONCE, Dosing Center Weight 54.602, kg, Start date: 11/28/17 14:30:00 CDT, Stop date: 11/28/17 14:30:00 CDT Fentanyl 50 microgram, Inactive [facility] Route: IVP, Drug 2017 Medical form: INJ, ONCE, Center Dosing Weight 54.602, kg, Start date: 11/28/17 14:30:00 CDT, Stop date: 11/28/17 14:30:00 CDT metoprolol Notes: (Same as: No Longer [place] Toprol XL) Do Not Active 2017 [facility]ica l [facility] Hemocyte Plus Notes: Inactive [facility] Non-Formulary 2018 [facility] Lisinopril Notes: 1.25 mg = No Longer [facility] 1/ x 2.5 mg TAB Active 2018 Medical (Same as: [place] Prinivil) Multigen Folic Notes: Same as No Longer [place] Iron/C/B12/FA/SA Active 2018 [facility] Furosemide 20 MG Notes: (Same as: No Longer 11/07 [place] Oral Tablet Lasix) May cause Active 2017 Me dical [Lasix] GI upset. Give Center with food or milk. Lexapro Notes: (Same as: [place] Long[place] Lexapro) Active [address] [place] [address] donepezil Notes: (Same as: No Longer [facility] Aricept) Active [address] [place] [address] metoprolol 25 mg metoprolol 25 mg No Longer 11/07 [place] oral tablet, oral tablet, Active 2017 Medica l extended release extended release, [place] 25 mg, Route: PO, Daily, 11/28/17 9:00:00 CDT, Duration: 30 day, Stop date: 12/27/17 9:00:00 CDT Thyroxine Notes: Take 1 No Longer [place] as hour before or 2 Active [facility] Medical hours after meal; Center Enteral feeds may interefere with the absorption of this medication. (Same as:Levothroid) Remeron Notes: (Same No Longer [facility] as:Remeron) Active [address] [place] [address] atorvastatin Notes: (Same as: No Longer [facility] Lipitor) Active [address] [place] [address] Flagyl 500 mg, 100 mL, No Longer [place] as Route: IVPB, Drug Active 2017 Medica l form: INJ, [place] [id number], Dosing Weight 54.602, kg, Start date: 11/27/17 19:00:00 CDT, Duration: 7 day, Stop date: 12/04/17 3:30:00 CDT, ABX Indication: Intra-abdominal Infection 200 ML 400 mg, 200 mL, No Longer [place] as Ciprofloxacin 2 Route: IVPB, Drug Active 2017 Medical MG/ML Injection form: INJ, Cente r [id number], Dosing Weight 54.602, kg, Start date: 11/27/17 19:00:00 CDT, Duration: 7 day, Stop date: 12/04/17 7:00:00 CDT, ABX Indication: Intra-abdominal Infection Docusate Notes: (Same as: [place] Longer [place] Colace) (Do Not Active 2017 Medical Crush) Center Megestrol Acetate Notes: (Same as: No Longer [facility] 40 MG Oral Tablet Megace) WASTE: Active 2018 Medical F/P - Black; E - Center Yellow Dextrose 50% 25 gm, 50 mL, No Longer [place] Syringe Route: IVP, Drug Active 2018 Medical Form: INJ, Dosing Center Weight 57.784, kg, PRN, PRN Blood Glucose Results, Start date: 11/27/17 14:09:00 CDT, Duration: 30 day, Stop date: 12/27/17 14:08:00 CDT Glucagon 1 mg, Route: IM, No Longer [place] Drug form: Active 2017 Medical PDR/INJ, PRN, Center Dosing Weight 57.784, kg, PRN Blood Glucose Results, Start date: 11/27/17 14:09:00 CDT, Duration: 30 day, Stop date: 12/27/17 14:08:00 CDT Insulin Lispro Notes: (Same as: No Longer [place] Humalog ) Roll in Active 2018 Medica l palms of hands Center gently; Do not shake `vigorously. "Single Patient Use Only " WASTE: F/P - Black; E - Municipal Trash Bin Stable for 28 days at room temperature. Expires in days from Dat e Ondansetron Notes: (Same as: No Longer [facility] Zofran) Active 2018 Medical Center Sulfamethoxazole Notes: One DS Inactive [place] 800 MG / tablet = 2018 Medical Trimethoprim 160 trimethoprim Ce nter MG Oral Tablet 160mg + [Bactrim] sulfamethoxazole 800 mg Dose based on trimethoprim component On empty stomach with a glass of water. (Same As: Bactrim DS, Septra DS) Isolyte S PH 7.4 Notes: (Same as: No Longer 11/07 [place] 1,000 mL Isolyte S PH 7.4) Active 2018 Medic al Center Metronidazole 500 500 mg = 1 tab, No Longer [place] MG Oral Tablet PO, Q8H, X 3 day, Active 2018 Medical [Flagyl] # 9 tab, 0 Center Refill(s) ciprofloxacin 500 500 mg = 1 tab, No Longer [place] mg oral tablet PO, Q12H, X 3 Active 2018 Med ical day, # 6 tab, 0 Center Refill(s) 24 HR Nicotine = 1 patch, TOP, No Longer [facility] 0.583 MG/HR Daily, X 30 day, Active 2017 Med ical Transdermal Patch # 30 patch, 0 [place] [Habitrol] Refill(s) Aspirin 81 MG Notes: Take with No Longer [facility] Chewable Tablet food. Active 2018 [facility] remove patch Notes: Remove old No Longer [facility] patch before Active 2018 Medical application of [place] new patch. WASTE: F/P - P Waste Black; E - P Waste Black iodixanol Notes: (Same as: No Longer [facility] Visipaque). Active 2017 Medical WASTE: F/P - Center Black; E - Municipal Trash Bin Diphenhydramine Notes: (Same as: Inactive [facility] Benadryl) 2018 [facility] Prednisone Notes: (Same as: Inactive [facility] PredniSONE) Take 2018 Medica l with food. [place] Prednisone Notes: (Same as: Inactive [facility] PredniSONE) Take 2018 Medica l with food. 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 [place] 24 HR Nicotine = 1 patch, [place] Longer [place] 0.875 MG/HR Transdermal, Active 2017 Medical Transdermal Patch Daily, 0 Cente r Refill(s) Megestrol Acetate 40 mg = 1 tab, Active [place] 40 MG Oral Tablet PO, BID, 0 2017 Med ical Refill(s) [place] zolpidem 5 mg 5 mg = 1 tab, PO, No Longer [facility] oral tablet PRN, 0 Refill(s) Active 2017 [facility] Hemocyte Plus 1 cap, PO, Daily, Active [facility] 0 Refill(s) [address] [place] [address] ondansetron 4 mg 4 mg = 1 tab, PO, Active 11/11 [facility] oral tablet PRN, 0 Refill(s) 2018 [facility] Nicotine Notes: (Same as: [place] Longer [place] Habitrol) "Remove Active 2018 Medica l old patch before Center application of new patch" WASTE: F/P - P Waste Black; E - P Waste Black 24 HR Metoprolol 25 mg, 1 tab, No Longer [facility] Tartrate 25 MG Route: PO, Drug Active 2017 edical Extended Release form: ERTAB, Ce nter Tablet [Toprol] Daily, Start date: 11/11/17 9:00:00 IN 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 Give Center with food or milk. Lexapro Notes: (Same as: [place] Lexapro) Active [address] [place] [address] donepezil Notes: (Same as: No Longer [facility] Aricept) Active [address] [place] [address] heparin Notes: porcine [place] heparin Active [address] [place] [address] Thyroxine Notes: Take 1 No Longer Arnel as hour before or [address] [place] [address] hours after meal; Center Enteral feeds may interefere with the absorption of this medication. 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 "Single Patient Use Only " WASTE: F/P - Black; E - Municipal Trash Bin Stable for 28 days at room temperature. 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 TUTOR, Duration: 30 day, Stop date: 12/11/17 1:24:00 CDT Mirtazapine 30 MG 30 mg = 1 tab, No Longer 11/11 [place] Oral Tablet PO, Bedtime, # 30 Active 2017 Ar dical [Remeron] tab, 0 Refill(s) Cente r metoprolol 25 mg 25 mg = 1 tab, Active [facility] oral tablet, PO, Daily, # 30 2018 Med ical extended release tab, 0 Refill(s) [place] Metformin 500 mg, PO, BID, [place] 0 Refill(s) 2018 [facility] Lisinopril 2.5 mg, PO, Active [place] Daily, 0 2018 Medical Refill(s) [place] atorvastatin 40 40 mg = 1 tab, Active H [place] mg oral tablet PO, Bedtime, # 30 2018 Medical tab, 0 Refill(s) [place] Escitalopram 10 10 mg = 1 tab, Active H [place] MG Oral Tablet PO, Daily, # 30 2018 edical [Lexapro] tab, 0 Refill(s) Cente r levothyroxine 25 25 microgram = 1 Active [facility] mcg (0.025 mg) tab, PO, Daily, # 2018 Medical oral tablet 30 tab, 0 Center Refill(s) Furosemide 20 MG 20 mg = 1 tab, Active [facility] Oral Tablet PO, PRN, # 30 2018 Medica l [Lasix] tab, 0 Refill(s) [place] donepezil 10 mg 10 mg = 1 tab, No Longer [facility] oral tablet PO, Daily, # 30 Active 2018 [facility] ana tab, 0 Refill(s) Center clopidogrel 75 MG 75 mg = 1 tab, No Longer 11/11 [facility] Oral Tablet PO, Daily, # 30 Active 2018 Medi ana [Plavix] tab, 0 Refill(s) Center Aspirin 81 mg, PO, Daily, No Longer [place] 0 Refill(s) Active 2018 [facility] Isolyte S PH 7.4 Notes: (Same as: No Longer [facility] 1,000 mL Isolyte S PH 7.4) Active 2018 Medic al Center Flagyl Notes: (Same as: [place] Flagyl) Avoid Active 2018 [facility] alcohol. Center Ciprofloxacin Notes: Do not No Longer [facility] refrigerate Active [address] [place] [address] Docusate Sodium Notes: (Same as: No Longer 11/11 [facility] 100 MG Oral Colace) (Do Not Active 2018 [facility] Capsule Crush) Center Allergies, Adverse Reactions, Alerts Substance Category Reaction Severity Reaction Status Date Comments S ource type Reported azithromycin Assertion Drug Active M ischer allergy Neuro iodine Assertion Drug Active Mische r allergy Neuro Immunizations No Data Provided for This Section Results Order Name Results Value Reference Date Interpretation Comments Luis A rce Range HEMATOLOGY Plav Effect 90 07/ [facility] [address] HEMATOLOGY ASA Effect 389 / [facility] [address] CHEM PANEL eGFR 48 03/13 [facility] Comment: The Medical eGFR is Center calculated using the CKD-EPI formula. In most young, healthy individuals the eGFR will be >90 mL/min/1.73m2 . The eGFR declines with age. An eGFR of 60-89 may be normal in some populations, particularly the elderly, for whom the CKD-EPI formula has not been extensively validated. Use of the eGFR is not recommended in the following populations:< br/>
Gianna viduals with unstable creatinine concentration s, including patients and those with serious co-morbid conditions.<b r/>
Patie nts with extremes in muscle mass or diet.

The data above are obtained from the National Kidney Disease Education Program (NKDEP) which additionally recommends that when the eGFR is used in patients with extremes of body mass index for purposes of drug dosing, the eGFR should be multiplied by the estimated BMI. CHEM PANEL Calcium Lvl 9.5 8.5 - 10.5 07 [facility] CHEM PANEL CO2 24 24 - [address] CHEM PANEL Sodium Lvl 149 135 - 145 07/ [address] CHEM PANEL Chloride Lvl 113 95 - 109 07 [facility] CHEM PANEL Potassium Lvl 4.3 3.5 - 5.[address] CHEM PANEL BUN 15 7 - [address] CHEM PANEL Creatinine 1.12 0.50 - 07 [facility] Lvl 1.40 /2017 [facility] CHEM PANEL Glucose Lvl 87 70 - [address] CHEM PANEL AGAP 16.3 10.0 - 0706 [facility] 20.0 [facility] HEMATOLOGY Eosinophils # 0.2 0.0 - 0.5 07 [facility] HEMATOLOGY Monocytes # 0.7 0.0 - 0.8 07 [facility] HEMATOLOGY Lymphocytes 26.5 20.0 - 07 [place] 40.0 [facility] HEMATOLOGY Segs-Bands # 4.4 1.5 - 8.1 03/13 [facility] HEMATOLOGY Segs 60.6 45.0 - 07 [place] 75.0 [facility] HEMATOLOGY Lymphocytes # 1.9 1.0 - 5.[address] HEMATOLOGY Monocytes 9.9 2.0 - 12.[address] HEMATOLOGY Eosinophils 2.5 0.0 - 4.0 07/ [facility] [address] [place] [address] HEMATOLOGY Basophils 0.5 0.0 - 1.0 07/ [address] HEMATOLOGY Platelet 145 133 - [address] HEMATOLOGY RDW 18.7 11.5 - 07 [facility] 14.5 [facility] HEMATOLOGY MPV 10.6 7.4 - 10.[address] HEMATOLOGY MCH 29.5 27.0 - 07 [place] 31.0 [facility] HEMATOLOGY MCHC 32.3 32.0 - 07 [facility] 36.0 [facility] HEMATOLOGY MCV 91.4 80.0 - 03/13 [facility] 98.0 [facility] HEMATOLOGY WBC 7.3 3.7 - 10.4 03/[address] HEMATOLOGY RBC 4.21 4.20 - 03/13 [facility] 5.40 /2017 [facility] HEMATOLOGY Hgb 12.4 12.0 - 03/13 [facility] 16.0 [facility] HEMATOLOGY Hct 38.4 36.0 - 03/13 [facility] 48.0 [facility] HEMATOLOGY TEG Data See Note 03/13 [facility] (03/13/18 3:45 PM) [facility] HEMATOLOGY Angle 73.0 53.0 - 03/13 [facility] 72.0 [facility] HEMATOLOGY Coag Index 3.1 -3.0-3.0 - 03/13 [facility] s 3.0 [facility] HEMATOLOGY G-value 11.8 4.5 - 11.0 03/[address] HEMATOLOGY Ly30 0.2 0.0 - 7.5 03/[address] HEMATOLOGY R-time 4.3 5.0 - 10.0 03/[address] HEMATOLOGY K-time 1.1 1.0 - 3.0 03/[address] HEMATOLOGY Max Amp 70.2 50.0 - 03/13 [facility] 70.0 [facility] HEMATOLOGY TEG Interp Thrombelas 03/13 [place] [facility] show shortened value of R and increased value of Angle Alpha. These findings are suggestive of enzymatic hypercoagu lation. CPT:50133 SPECIAL Hgb A1C 5.4 <=5.6 % 03/13 [facility] CHEMISTRY [facility] ELECTROLYTE AGAP 12.6 10.0 - 11/30 [facility] S 20.0 [facility] ELECTROLYTE CO2 26 24 - 32 11/30 [facility]2017 [facility] ELECTROLYTE Calcium Lvl 8.7 8.5 - 10.5 11/30 [place] [facility] ELECTROLYTE Potassium Lvl 3.6 3.5 - 5.1 11/30 [place] [facility] ELECTROLYTE Chloride Lvl 111 95 - 109 11/30 [place] as S [facility] ELECTROLYTE eGFR 68 03/25 Result [facility] Comment: The Medical eGFR is Center calculated using the CKD-EPI formula. In most young, healthy individuals the eGFR will be >90 mL/min/1.73m2 . The eGFR declines with age. An eGFR of 60-89 may be normal in some populations, particularly the elderly, for whom the CKD-EPI formula has not been extensively validated. Use of the eGFR is not recommended in the following populations:< br/>
Gianna viduals with unstable creatinine concentration s, including patients and those with serious co-morbid conditions.<b r/>
Patie nts with extremes in muscle mass or diet.

The data above are obtained from the National Kidney Disease Education Program (NKDEP) which additionally recommends that when the eGFR is used in patients with extremes of body mass index for purposes of drug dosing, the eGFR should be multiplied by the estimated BMI. ELECTROLYTE BUN 7 7 - 22 11/30 [facility]2017 [facility] ELECTROLYTE Creatinine 0.83 0.50 - 11/30 [facility] S Lvl 1.40 /[address] [place] [address] ELECTROLYTE Sodium Lvl 146 135 - 145 11/30 [place] [facility]2017 [facility] ELECTROLYTE Glucose Lvl 103 70 - 99 11/[address] CHEM PANEL Magnesium Lvl 2.1 1.8 - 2.4 11/29 [place] [facility] CHEM PANEL Phosphorus 3.2 2.5 - 4.5 11/[address] ELECTROLYTE AGAP 12.3 10.0 - 11/29 [facility] S 20.0 [facility] ELECTROLYTE eGFR 48 11/29 Result [facility] Comment: The [facility] eGFR is Center calculated using the CKD-EPI formula. In most young, healthy individuals the eGFR will be >90 mL/min/1.73m2 . The eGFR declines with age. An eGFR of 60-89 may be normal in some populations, particularly the elderly, for whom the CKD-EPI formula has not been extensively validated. Use of the eGFR is not recommended in the following populations:< br/>
Gianna viduals with unstable creatinine concentration s, including patients and those with serious co-morbid conditions.<b r/>
Patie nts with extremes in muscle mass or diet.

The data above are obtained from the National Kidney Disease Education Program (NKDEP) which additionally recommends that when the eGFR is used in patients with extremes of body mass index for purposes of drug dosing, the eGFR should be multiplied by the estimated BMI. ELECTROLYTE Chloride Lvl 108 95 - 109 11/29 [facility] ELECTROLYTE Glucose Lvl 115 70 - 99 11/[address] ELECTROLYTE Creatinine 1.12 0.50 - 11/29 [facility] S Lvl 1.40 [facility] ELECTROLYTE Sodium Lvl 143 135 - 145 11/29 [facility]2017 [facility] ELECTROLYTE Potassium Lvl 3.3 3.5 - 5.1 11/29 [facility] ELECTROLYTE BUN 11 7 - 22 11/[address] ELECTROLYTE Calcium Lvl 8.7 8.5 - 10.5 11/[address] ELECTROLYTE CO2 26 24 - 32 11/[address] HEMATOLOGY Eosinophils # 0.2 0.0 - 0.5 11/[address] HEMATOLOGY Lymphocytes # 2.6 1.0 - 5.5 11/[address] HEMATOLOGY Monocytes # 1.4 0.0 - 0.8 11/29 [facility]2017 [facility] HEMATOLOGY Segs 65.1 45.0 - 11/29 [facility] 75.0 [facility] HEMATOLOGY Eosinophils 1.9 0.0 - 4.0 11/29 [facility]2017 [facility] HEMATOLOGY Basophils 0.4 0.0 - 1.0 11/[address] HEMATOLOGY Segs-Bands # 7.9 1.5 - 8.1 11/29 [facility] HEMATOLOGY Lymphocytes 21.2 20.0 - 11/29 [facility] 40.0 [facility] HEMATOLOGY Monocytes 11.4 2.0 - 12.0 11/[address] HEMATOLOGY MPV 9.3 7.4 - 10.4 11/[address] HEMATOLOGY MCH 24.8 27.0 - 11/29 [facility] 31.0 [facility] HEMATOLOGY Hct 31.6 36.0 - 11/29 [place] 48.0 [facility] HEMATOLOGY MCV 79.5 80.0 - 03/24 [facility] 98.0 [facility] HEMATOLOGY Platelet 347 133 - 450 11/29 [facility] HEMATOLOGY MCHC 31.2 32.0 - 11/29 [facility] 36.0 [facility] HEMATOLOGY RDW 20.5 11.5 - 11/29 [facility] 14.5 [facility] HEMATOLOGY WBC 12.1 3.7 - 10.4 11/29 [facility] HEMATOLOGY RBC 3.97 4.20 - 11/29 [facility] 5.40 [facility] HEMATOLOGY Hgb 9.8 12.0 - 11/29 [place] 16.0 [facility] PARATHYROID Ca Ion WB 1.17 1.05 - 11/29 [facility] PROFILE 1. [facility] PARATHYROID Ca Norm WB 1.16 1.05 - 11/29 [facility] PROFILE 1. [facility] CIPROFLOXAC Gram Stain Gram Stain 11/28 [place]:SUSC:PT: Report Performed Medical ISOLATE:ORD By: Center QN:SRINIVAS [facility] CIPROFLOXAC Culture: Many Staphylococcus Species, Not S. aureus 11/28 [facility] IN:SUSC:PT: Aspirate/Body Many Staphylococcus Species, Not S. aureus # Medical ISOLATE:ORD Fluid/Tissue Few Enterococcus Species [place] QN:SRINIVAS CIPROFLOXAC Enterococcus Enterococc 11/28 [place]:SUSC:PT: Species us Species /2017 Medical ISOLATE:ORD Center QN:SRINIVAS CHEM PANEL Phosphorus 2.8 2.5 - 4.5 11/28 [facility] CHEM PANEL Magnesium Lvl 2.2 1.8 - 2.4 11/28 [place] [facility] CHEM PANEL eGFR 71 11/28 Result Comment: The Medical eGFR is Center calculated using the CKD-EPI formula. In most young, healthy individuals the eGFR will be >90 mL/min/1.73m2 . The eGFR declines with age. An eGFR of 60-89 may be normal in some populations, particularly the elderly, for whom the CKD-EPI formula has not been extensively validated. Use of the eGFR is not recommended in the following populations:< br/>
Gianna viduals with unstable creatinine concentration s, including patients and those with serious co-morbid conditions.<b r/>
Patie nts with extremes in muscle mass or diet.

The data above are obtained from the National Kidney Disease Education Program (NKDEP) which additionally recommends that when the eGFR is used in patients with extremes of body mass index for purposes of drug dosing, the eGFR should be multiplied by the estimated BMI. CHEM PANEL Glucose Lvl 63 70 - 99 11/28 [facility]2017 [facility] CHEM PANEL BUN 10 7 - 22 11/[address] CHEM PANEL Calcium Lvl 8.3 8.5 - 10.5 11/28 [facility] CHEM PANEL AGAP 12.5 10.0 - 11/28 [facility] 20.0 [facility] CHEM PANEL Creatinine 0.80 0.50 - 11/28 [place] Lvl 1.40 [facility] CHEM PANEL Sodium Lvl 143 135 - 145 11/[address] CHEM PANEL CO2 25 24 - 32 11/[address] CHEM PANEL Chloride Lvl 109 95 - 109 11/28 [facility]2017 [facility] CHEM PANEL Potassium Lvl 3.5 3.5 - 5.1 11/28 [facility] HEMATOLOGY Segs 72.9 45.0 - 11/28 [facility] 75.0 [facility] HEMATOLOGY Segs-Bands # 9.0 1.5 - 8.1 11/28 [facility] HEMATOLOGY Microcyte 1+ None Seen 11/28 [facility] *ABN* /2017 [facility] (11/28/17 3:05 AM) [place] HEMATOLOGY Monocytes # 1.5 0.0 - 0.8 11/28 [facility] HEMATOLOGY Lymphocytes # 1.7 1.0 - 5.5 11/28 [facility] HEMATOLOGY Eosinophils # 0.2 0.0 - 0.5 11/[address] HEMATOLOGY Basophils 0.4 0.0 - 1.0 11/[address] HEMATOLOGY Eosinophils 1.3 0.0 - 4.0 11/28 [facility]2017 [facility] HEMATOLOGY Monocytes 11.9 2.0 - 12.0 11/[address] HEMATOLOGY Lymphocytes 13.5 20.0 - 11/28 [place] 40.0 [facility] HEMATOLOGY MCH 24.7 27.0 - 11/28 [place] 31.0 Medical [place] HEMATOLOGY MCV 78.2 80.0 - 11/28 [place] 98.0 Medical Center HEMATOLOGY Hct 25.4 36.0 - 11/28 [place] 48.0 [facility] Center HEMATOLOGY Hgb 8.0 12.0 - 11/28 [place] 16.0 [facility] Center HEMATOLOGY MPV 9.5 7.4 - 10.4 11/28 [facility] HEMATOLOGY Platelet 255 133 - 450 11/28 [facility] HEMATOLOGY RDW 20.6 11.5 - 11/28 [place] 14. [facility] HEMATOLOGY RBC 3.25 4.20 - 11/28 [place] 5.40 /2017 [facility] HEMATOLOGY WBC 12.3 3.7 - 10.4 11/28 [facility] HEMATOLOGY MCHC 31.6 32.0 - 11/28 [place] 36.0 [facility] PARATHYROID Ca Ion WB 1.13 1.05 - 11/28 [place] PROFILE 1. [facility] PARATHYROID Ca Norm WB 1.13 1.05 - 11/28 [place] PROFILE 1. [facility] HEMATOLOGY Monocytes # 1.6 0.0 - 0.8 11/27 [place] [facility] HEMATOLOGY Lymphocytes # 1.0 1.0 - 5.5 11/27 [place] [facility] HEMATOLOGY Eosinophils # 0.1 0.0 - 0.5 11/27 [place] [facility] HEMATOLOGY Lymphocytes 6.3 20.0 - 11/27 [place] 40.0 [facility] HEMATOLOGY Segs 83.3 45.0 - 11/27 [place] 75.0 2018 [facility] HEMATOLOGY Segs-Bands # 13.8 1.5 - 8.1 11/27 [place] [facility] HEMATOLOGY Eosinophils 0.7 0.0 - 4.0 11/[place] [facility] HEMATOLOGY Monocytes 9.6 2.0 - 12.0 11/27 [facility] HEMATOLOGY Basophils 0.1 0.0 - 1.0 11/27 [facility] HEMATOLOGY Platelet 242 133 - 450 11/27 [facility] HEMATOLOGY RDW 20.7 11.5 - 11/27 [place] 14. [facility] HEMATOLOGY MCHC 31.5 32.0 - 11/27 [place] 36.0 /2017 [facility] HEMATOLOGY MPV 9.2 7.4 - 10.4 11/27 [place] /[address] [place] [address] HEMATOLOGY WBC 16.5 3.7 - 10.4 11/27 [place] /2018 [facility] HEMATOLOGY MCH 25.2 27.0 - 11/27 [place] 31.0 /2017 [facility] HEMATOLOGY MCV 79.9 80.0 - 11/27 [place] 98.0 /2017 [facility] HEMATOLOGY Hct 25.0 36.0 - 11/27 [place] 48.0 /2018 [facility] HEMATOLOGY Hgb 7.9 12.0 - 11/27 [place] 16.0 /2017 [facility] HEMATOLOGY RBC 3.13 4.20 - 11/27 [place] 5.40 /2017 [facility] CHEM PANEL Lactic Acid 0.9 0.5 - 2.2 [place] /2017 [facility] Culture: 10,000 - 11/27 [facility] Urine 50,000 /2017 [facility] CFU/mL Center Skin Monica URINE AND UA RBC 3-5 /HPF 0 - 2 11/27 [facility] STOOL /[address] [place] [address] URINE AND UA Bacteria Many /HPF None Seen 11/27 [place] STOOL /HPF /[address] [place] [address] URINE AND UA WBC 21-50 /HPF None Seen 11/27 [facility] STOOL /HPF /[address] [place] [address] URINE AND UA Sq Epi Moderate Few /LPF 11/27 [facility] STOOL /LPF /[address] [place] [address] URINE AND UA Protein 30 mg/dL Negative 11/27 [facility] mg/dL /[address] [place] [address] URINE AND UA Blood Moderate Negative 11/27 [facility] STOOL *ABN* /2017 [facility] (11/27/17 3:42 AM) [place] URINE AND UA 0.2 0.1 - 1.0 11/27 [facility] Urobilinogen /[address] [place] [address] URINE AND UA Leuk Est Large Negative 11/27 [facility] STOOL *ABN* /2017 [facility] (11/27/17 3:42 AM) [place] URINE AND UA Nitrite Negative Negative 11/27 [facility] (11/27/17 3:42 AM) /2018 Med[facility] l Center URINE AND UA Bili Negative Negative 11/27 [facility] STOOL *NA* /2017 [facility] (11/27/17 3:42 AM) [place] URINE AND UA Ketones Negative Negative 11/27 [facility] STOOL *NA* /2017 [facility] (11/27/17 3:42 AM) [place] URINE AND UA Glucose Negative Negative 11/27 [facility] STOOL (11/27/17 3:42 AM) /2017 [facility] URINE AND UA Spec Grav 1.020 <=1.030 11/27 [facility] /[address] [place] [address] URINE AND UA Turbidity Cloudy Clear 11/27 [facility] STOOL *ABN* /2017 [facility] (11/27/17 3:42 AM) [place] URINE AND UA Color Yellow Yellow 11/27 [facility] STOOL *NA* /2017 [facility] (11/27/17 3:42 AM) [place] URINE AND UA pH 7.5 5.0 - 8.0 11/27 [facility] [address] [place] [address] CARDIAC Troponin-I <0.02 0.00 - 11/27 [facility] ENZYMES 0.40 [facility] CHEM PANEL Lipase Lvl 71 73 - 393 11/[address] CHEM PANEL Bili Indirect 0.1 0.0 - 1.0 11/27 [facility] CHEM PANEL Bili Total 0.2 0.2 - 1.3 11/[address] CHEM PANEL Bili Direct 0.1 0.0 - 0.3 11/27 [facility] [address] [place] [address] CHEM PANEL Alk Phos 66 39 - 136 11/[address] CHEM PANEL ALT 12 0 - 65 11/[address] CHEM PANEL AST 19 0 - 37 11/[address] CHEM PANEL Total Protein 6.1 6.4 - 8.4 11/27 [facility] [address] [place] [address] CHEM PANEL Albumin Lvl 2.0 3.5 - 5.0 11/[address] CHEM PANEL A/G Ratio 0.5 0.7 - 1.6 11/[address] CHEM PANEL Globulin 4.1 2.7 - 4.2 11/[address] HEMATOLOGY Microcyte 1+ None Seen 11/27 [place] *ABN* /2017 [facility] (11/27/17 2:25 AM) [place] HEMATOLOGY Basophils # 0.1 0.0 - 0.2 11/[address] HEMATOLOGY PTT 25.8 22.9 - 11/27 [place] 35.8 [facility] HEMATOLOGY INR 1.17 0.85 - 11/27 [facility] 1.17 [facility] HEMATOLOGY PT 15.0 12.0 - 11/27 [facility] 14.7 [facility] CHEM PANEL eGFR 62 11/14 Result Comment: The Medical eGFR is Center calculated using the CKD-EPI formula. In most young, healthy individuals the eGFR will be >90 mL/min/1.73m2 . The eGFR declines with age. An eGFR of 60-89 may be normal in some populations, particularly the elderly, for whom the CKD-EPI formula has not been extensively validated. Use of the eGFR is not recommended in the following populations:< br/>
Gianna viduals with unstable creatinine concentration s, including patients and those with serious co-morbid conditions.<b r/>
Patie nts with extremes in muscle mass or diet.

The data above are obtained from the National Kidney Disease Education Program (NKDEP) which additionally recommends that when the eGFR is used in patients with extremes of body mass index for purposes of drug dosing, the eGFR should be multiplied by the estimated BMI. CHEM PANEL Chloride Lvl 107 95 - 109 11/14 [facility] CHEM PANEL Potassium Lvl 3.2 3.5 - 5.1 11/14 [facility] CHEM PANEL CO2 30 24 - 32 11/[address] CHEM PANEL Calcium Lvl 8.2 8.5 - 10.5 11/14 [facility] CHEM PANEL Sodium Lvl 146 135 - 145 11/14 [facility]2017 [facility] CHEM PANEL Creatinine 0.90 0.50 - 11/14 [facility] Lvl 1.40 [facility] CHEM PANEL BUN 11 7 - 22 11/[address] CHEM PANEL Glucose Lvl 95 70 - 99 11/14 [facility] CHEM PANEL AGAP 12.2 10.0 - 03 [facility] 20.0 [facility] HEMATOLOGY Anisocyte 1+ None Seen 11/14 [facility] *ABN* /2017 [facility] (11/14/17 3:40 AM) [place] HEMATOLOGY Monocytes # 0.9 0.0 - 0.8 11/14 [facility] HEMATOLOGY Eosinophils # 0.1 0.0 - 0.5 11/14 [facility] HEMATOLOGY Lymphocytes # 2.5 1.0 - 5.5 11/14 [place] [facility] HEMATOLOGY Neutrophils # 7.5 1.5 - 8.1 11/14 [place] [facility] HEMATOLOGY Eosinophils 0.6 0.0 - 4.0 [place] [facility] HEMATOLOGY Monocytes 8.4 2.0 - 12.0 11/14 [facility] HEMATOLOGY Basophils 0.2 0.0 - 1.0 11/14 [facility] HEMATOLOGY Segs 68.4 45.0 - 11/14 [place] 75.0 /2017 [facility] HEMATOLOGY Lymphocytes 22.4 20.0 - 11/14 [place] 40.0 [facility] HEMATOLOGY MCV 80.6 80.0 - 11/14 [place] 98.0 [facility] HEMATOLOGY Hct 27.6 36.0 - 11/14 [place] 48.0 [facility] HEMATOLOGY Hgb 8.9 12.0 - 11/14 [place] 16.0 [facility] HEMATOLOGY RBC 3.43 4.20 - 11/14 [place] 5.40 [facility] HEMATOLOGY WBC 11.0 3.7 - 10.4 11/14 [facility] HEMATOLOGY Platelet 300 133 - 450 11/14 [facility] HEMATOLOGY MPV 9.0 7.4 - 10.4 11/14 [facility] HEMATOLOGY MCH 25.8 27.0 - 11/14 [place] 31.0 [facility] HEMATOLOGY RDW 21.1 11.5 - 11/14 [place] 14.5 [facility] HEMATOLOGY MCHC 32.1 32.0 - 11/14 [place] 36.0 [facility] CHEM PANEL eGFR 61 11/13 [facility] Comment: The Medical eGFR is Center calculated using the CKD-EPI formula. In most young, healthy individuals the eGFR will be >90 mL/min/1.73m2 . The eGFR declines with age. An eGFR of 60-89 may be normal in some populations, particularly the elderly, for whom the CKD-EPI formula has not been extensively validated. Use of the eGFR is not recommended in the following populations:< br/>
Gianna viduals with unstable creatinine concentration s, including patients and those with serious co-morbid conditions.<b r/>
Patie nts with extremes in muscle mass or diet.

The data above are obtained from the National Kidney Disease Education Program (NKDEP) which additionally recommends that when the eGFR is used in patients with extremes of body mass index for purposes of drug dosing, the eGFR should be multiplied by the estimated BMI. CHEM PANEL Potassium Lvl 3.4 3.5 - 5.1 11/[address] CHEM PANEL Sodium Lvl 145 135 - [address] CHEM PANEL Chloride Lvl 107 95 - 109 03 [facility]2017 [facility] CHEM PANEL Calcium Lvl 8.3 8.5 - 10.5 11/13 [facility] CHEM PANEL AGAP 12.4 10.0 - 11/13 [facility] 20.0 [facility] CHEM PANEL CO2 29 24 - 32 11/[address] CHEM PANEL Creatinine 0.91 0.50 - 03 [facility] Lvl 1.40 [facility] CHEM PANEL BUN 14 7 - 22 11/[address] CHEM PANEL Glucose Lvl 111 70 - 99 11/[address] HEMATOLOGY Anisocyte 1+ None Seen 11/13 [facility] *ABN* /2017 [facility] (11/13/17 3:33 AM) [place] HEMATOLOGY Basophils 0.1 0.0 - 1.0 11/[address] HEMATOLOGY Segs 75.0 45.0 - 11/13 [facility] 75.0 [facility] HEMATOLOGY Lymphocytes # 2.1 1.0 - 5.5 11/[address] HEMATOLOGY Neutrophils # 10.1 1.5 - 8.1 11/[address] HEMATOLOGY Monocytes # 1.3 0.0 - 0.8 03 [facility]2017 [facility] HEMATOLOGY Monocytes 9.3 2.0 - 12.0 11/[address] HEMATOLOGY Lymphocytes 15.6 20.0 - 11/13 [facility] 40.0 [facility] HEMATOLOGY MCV 81.2 80.0 - 08 [facility] 98.0 2017 [facility] HEMATOLOGY MCHC 31.5 32.0 - 03/08 [place] 36.0 [facility] HEMATOLOGY MCH 25.6 27.0 - 03/08 [facility] [place] 31.0 [facility] HEMATOLOGY Hgb 8.0 12.0 - 11/13 [facility] 16.0 [facility] HEMATOLOGY Hct 25.4 36.0 - 11/13 [facility] 48.0 [facility] HEMATOLOGY RBC 3.13 4.20 - 11/13 [facility] 5.40 /2017 [facility] HEMATOLOGY WBC 13.5 3.7 - 10.4 11/13 [facility]2017 [facility] HEMATOLOGY Platelet 308 133 - 450 11/13 [facility]2017 [facility] HEMATOLOGY MPV 9.1 7.4 - 10.4 11/13 [facility]2017 [facility] HEMATOLOGY RDW 21.5 11.5 - 11/13 [facility] 14.5 [facility] ELECTROLYTE AGAP 14.3 10.0 - 11/12 [facility] S 20.0 [facility] ELECTROLYTE eGFR 49 11/12 [facility] Comment: The Medical eGFR is Center calculated using the CKD-EPI formula. In most young, healthy individuals the eGFR will be >90 mL/min/1.73m2 . The eGFR declines with age. An eGFR of 60-89 may be normal in some populations, particularly the elderly, for whom the CKD-EPI formula has not been extensively validated. Use of the eGFR is not recommended in the following populations:< br/>
Gianna viduals with unstable creatinine concentration s, including patients and those with serious co-morbid conditions.<b r/>
Patie nts with extremes in muscle mass or diet.

The data above are obtained from the National Kidney Disease Education Program (NKDEP) which additionally recommends that when the eGFR is used in patients with extremes of body mass index for purposes of drug dosing, the eGFR should be multiplied by the estimated BMI. ELECTROLYTE Glucose Lvl 175 70 - 99 11/12 [facility] ELECTROLYTE Calcium Lvl 9.0 8.5 - 10.5 11/12 [place] [facility] ELECTROLYTE Chloride Lvl 105 95 - 109 11/12 [facility] ELECTROLYTE CO2 25 24 - 32 11/12 [facility] 2017 [facility] ELECTROLYTE Sodium Lvl 140 135 - 145 11/12 [place] [facility] ELECTROLYTE Potassium Lvl 4.3 3.5 - 5.1 11/12 [place] [facility] ELECTROLYTE BUN 14 7 - 22 11/12 [facility] S [facility] ELECTROLYTE Creatinine 1.09 0.50 - 11/12 [facility] S Lvl 1.40 [facility] HEMATOLOGY MCH 25.5 27.0 - 11/12 [place] 31.0 [facility] HEMATOLOGY MCV 82.0 80.0 - 11/12 [place] 98.0 [facility] HEMATOLOGY RDW 21.6 11.5 - 11/12 [place] 14.5 [facility] HEMATOLOGY MCHC 31.2 32.0 - 11/12 [place] 36.0 [facility] HEMATOLOGY RBC 3.66 4.20 - 11/12 [place] 5.40 [facility] HEMATOLOGY Hct 30.0 36.0 - 11/12 [place] 48.0 [facility] HEMATOLOGY Hgb 9.4 12.0 - 11/12 [place] 16.0 [facility] HEMATOLOGY WBC 19.6 3.7 - 10.4 11/12 2017 [facility] HEMATOLOGY MPV 9.7 7.4 - 10.4 11/12 2017 [facility] HEMATOLOGY Platelet 311 133 - 450 11/12 [facility] HEMATOLOGY Plt Morph Normal 11/12 [facility] (11/12/17 6:21 AM) [facility] HEMATOLOGY Segs 92.7 45.0 - 11/12 [place] 75.0 [facility] HEMATOLOGY Monocytes # 0.2 0.0 - 0.8 11/12 [place] [facility] HEMATOLOGY Anisocyte 1+ None Seen 11/12 [facility] *ABN* /2017 [facility] (11/12/17 6:21 AM) [place] HEMATOLOGY Lymphocytes # 1.2 1.0 - 5.5 11/12 [facility] xa [facility] HEMATOLOGY Monocytes 1.1 2.0 - 12.0 11/12 [facility] [address] [place] [address] HEMATOLOGY Basophils 0.1 0.0 - 1.0 03 [facility] [address] [place] [address] HEMATOLOGY Neutrophils # 18.2 1.5 - 8.1 11/12 [facility] xa [address] [place] [address] HEMATOLOGY Lymphocytes 6.1 20.0 - 11/12 [place] 40.0 [facility] TUMOR AFP 1.8 0.0 - 11.0 11/12 [facility] MARKERS [facility] TUMOR CEA 0.5 0.0 - 3.0 11/12 [facility] MARKERS /[address] [place] [address] TUMOR CA 19-9 8.1 0.0 - 35.0 11/12 [facility] MARKERS /[address] [place] [address] CHEM PANEL Lactic Acid 1.2 0.5 - 2.2 11/11 [place] L[place] /[address] [place] [address] CHEM PANEL Lactic Acid 2.4 0.5 - 2.2 11/11 [facility] s l /[address] [place] [address] Culture: No Growth 11/11 [facility] Urine /[address] [place] [address] URINE AND UA Bacteria Moderate None Seen 11/11 [facility] /HPF /2017 [facility] URINE AND UA WBC 6-10 /HPF None Seen 11/11 [facility] STOOL /HPF /[address] [place] [address] URINE AND UA Mucus None Seen None Seen 11/11 [facility] (11/10/17 10:50 PM) /2017 [facility] URINE AND UA RBC 0-2 /HPF 0 - 2 11/11 [facility] STOOL /[address] [place] [address] URINE AND UA Sq Epi Moderate Few /LPF 11/11 [facility] STOOL /LPF /[address] [place] [address] URINE AND UA Leuk Est Moderate Negative 11/11 [facility] STOOL *ABN* /2017 [facility] (11/10/17 10:50 PM) [place] URINE AND UA Nitrite Negative Negative 11/11 [facility] (11/10/17 10:50 PM) [facility] URINE AND UA 0.2 0.1 - 1.0 11/11 [facility] [facility] Urobilinogen /[address] [place] [address] URINE AND UA Spec Grav >=1.030 <=1.030 11/11 [facility] *ABN* /[address] [place] [address] (11/10/17 10:50 PM) [place] URINE AND UA Turbidity Slight Cloudy Clear 11/11 [facility] (11/10/17 10:50 PM) [facility] URINE AND UA Color Yellow Yellow 11/11 [facility] STOOL *NA* /2017 [facility] (11/10/17 10:50 PM) Center URINE AND UA Glucose Negative Negative 11/11 [facility] (11/10/17 10:50 PM) [facility] URINE AND UA Protein 30 mg/dL Negative 11/11 [facility] STOOL mg/dL /[address] [place] [address] URINE AND UA pH 5.5 5.0 - 8.0 11/11 [facility] STOOL /[address] [place] [address] URINE AND UA Blood Moderate Negative 11/11 [facility] STOOL *ABN* /2017 [facility] (11/10/17 10:50 PM) [place] URINE AND UA Bili Negative Negative 11/11 [facility] STOOL *NA* /2017 [facility] (11/10/17 10:50 PM) [place] URINE AND UA Ketones Trace Negative 11/11 [facility] STOOL *ABN* /2017 [facility] (11/10/17 10:50 PM) [place] CHEM PANEL Lactic Acid 2.3 0.5 - 2.2 11/11 [facility] HEMATOLOGY PT 15.2 12.0 - 11/11 [facility] 14.7 /2017 [facility] HEMATOLOGY INR 1.19 0.85 - 11/11 [facility] 1.17 /2017 [facility] HEMATOLOGY PTT 28.5 22.9 - 11/11 [facility] 35.8 /2017 [facility] HEMATOLOGY Basophils # 0.1 0.0 - 0.2 11/11 [facility] HEMATOLOGY Eosinophils 0.1 0.0 - 4.0 11/11 [facility] Pathology Reports No Data Provided for This Section Diagnostic Reports Report Value Date Source Abdomen w/wo contrast EXAM: MR ABDOMEN WITH AND WITHOUT CONTRAS T 11/29/2017 [facility] MRI DATE: 11/28/2017 4:57 PM CDT Cent er INDICATION: - unclear liver lesion. IR couldn't do a biopsy. Recommended MRI with Eovist. ADDITIONAL INFORMATION: None. COMPARISON: CT 11/27/2017. TECHNIQUE: Multiplanar, mult isequence acquisition of the abdomen both prior to and following intravenous contrast, in precontrast, arterial, portal venous and delayed phases of enhancement, per the dynamic liver protocol. IV contrast: 10 cc MultiHance Enteric contrast: None. FINDINGS: Lines, tubes and hardware: None. Lower thorax: Clear. Liver: The liver is normal i n size and has smooth contours. There are no arterially enhancing lesions. Ill-defined wedge-shaped hypoenhancing area measuring 2.1 x 1.3 cm is noted in segment 7 (series 09/11/2000, image 53), with sukhjinder cent capsular retraction and subtle linear hypointense areas. There is no restricted diffusion. Although limited by motion artifact there appears to be contrast enhancement on the delayed images (series 1601, image 55). Biliary tree: No intra- or extrahepatic biliary ductal dilation. Gallbladder: Normal. Pancreas: Normal. Spleen: Normal. Adrenals: Normal. Kidneys and ureters: There i s no hydronephrosis or renal mass. Tiny T2 hyperintense foci are noted in the left kidney, most likely representing cysts.. Gastrointestinal tract: Normal caliber. Peritoneum, mesentery and re troperitoneum: Normal. No free air, ascites or loculated fluid. Distant lymph nodes: Normal. Vasculature: There is dilata tion of the infrarenal abdominal aorta measuring up to 3.1 cm in diameter. Bones: Normal. Soft tissues: Normal. IMPRESSION: 1. Ill-defined wedge-shaped hypoenhancing area measuring 2.1 x 1.3 cm is noted in segment 7 (series 09/11/2000, image 53), with adjacent capsular retraction and subtle linear hypointense areas. There is no restricted diffusion. Alt lydia limited by motion artifact there appears to be contrast enhancement on the delayed images (series 1601, image 55). Differentials include focal cholangiohepatitis/ meta static deposit. Recommend ei ther short-term follow-up magnetic resonance imaging/PET CT versus biopsy. 2. Infrarenal abdominal aortic aneurysm measuri ng up to 3.1 cm. Liver US STUDY: Image guided targeted liver biopsy 2017 [facility] DATE: 11/28/2017 12:[address] INDICATION(S): 77-year-old l elena with previous CT scans we suggested a questionable lesion request is for image guided biopsy of right lobe of liver questionable/suspected lesion. PROCEDURE(S) PERFORMED: 1. Detailed B mode ultrasoun d scan of the right lobe of liver was unable to identify the lesion. Noncontrast CT was also performed and could not identify the lesion. 2. Given the inability to id entify the lesion a decision was taken not to attempt any liver biopsy on this occasion. CONSTRUCTION ELECTRICIAN: Dr. Fernandez END STAPLER(S): None CONSENT: Written consent obt ained after discussing the indications, procedure, potential benefits, alternatives and risks SEDATION/PAIN CONTROL: Moder ate conscious sedation was administered by a dedicated [...] to clearly id entify any focal liver lesio n even with corresponding to the recent CT imaging. Subsequent noncontrast CT im ages of the liver were also obtained in an attempt to identify the lesion. The lesion could not be identified clearly therefore no ultrasound guided liver biopsy was performed on this occasion. FINDINGS: The visualized juan j er on ultrasound and noncontrast CT demonstrated no lesions. COMPLICATIONS: None ESTIMATED BLOOD LOSS: None FLUOROSCOPIC TIME: 0 minutes RADIATION DOSE: 0 mGy CONTRAST VOLUME: 0 mL IMPRESSION: Planned targeted biopsy of t he liver was not performed due to inability to visualize the lesion or standard B mode ultrasound and also noncontrast CT. PLAN/FOLLOW UP: Given the previous questiona ble nature of the lesion, I recommend performing MRI scan of the liver with a obvious to reevaluate the right lobe of liver further. If the lesion is confirmed on MRI scan th en targeted ultrasound scan of the lesion should be performed with intravascular ultrasound contrast study. Dr. Fernandez, IR Attending, was present for t he procedure. Abscess Guidance w STUDY: Image guided pelvic drain placement [facility] Medical drainage CT DATE: 11/28/2017 3:23 PM CDT Cent er INDICATION(S): 77-year-old w ith a diverticular abscess request is for image guided drain placement.. PROCEDURE(S) PERFORMED: Successful CT-guided placeme nt of a 10 [place] Helenian left transgluteal drain with Miguel Ángel pus drained. CONSTRUCTION ELECTRICIAN: Dr. Fernandez END STAPLER(S): None CONSENT: Written consent obt ained after discussing the indications, procedure, potential benefits, alternatives and risks SEDATION/PAIN CONTROL: Moder ate conscious sedation was administered by a dedicated nurse under my supervision. There was continuous monitoring of BP, pulse and oxygen saturation. Sedation time 30 minutes. PROCEDURE IN DETAIL: The patient was brought inte rventional suite and placed prone. Fries CT imaging confirmed the presence of pelvic abscess. The appropriate access site was then identified. The overlying skin was then prepped and draped in the usual sterile fashion . Lidocaine 1% used as local a nesthetic. Using intermittent CT guidance an 18- gauge Chiba needle was advanced into the abscess collection via a left transgluteal approach. Holland wire was advanced into col lection. Subsequently serial dilatation of the access tract was then performed to accept a 10 St Helenian Mac lock drain. Miguel Ángel pus was aspirated and specimen was sent for microbiology evaluation. The drain was then flushed a nd connected to a NASRA bulb for drainage. Drain to the skin using 2 sutures of 2-0 Prolene. Sterile dressing was applied. FINDINGS: Complex pelvic col lection with successful placement of a 10 St Helenian drain. COMPLICATIONS: None ESTIMATED BLOOD LOSS: None FLUOROSCOPIC TIME: 0 minutes RADIATION DOSE (DLP): 823 mGy.cm CONTRAST VOLUME: 0 mL IMPRESSION: Successful CT-guided placeme nt of a 10 St Helenian left transgluteal drain with Miguel Ángel pus drained. PLAN/FOLLOW UP: Recommend flushing the drain with 10 cc of salin e Q6 hourly. Dr. Dr Fernandez, IR Attending, was present fo r the procedure. Chest 2 views DX EXAM: XR CHEST 2 VIEWS 11/27/2017 [facility] DATE: 11/27/2017 1:59 PM CDT Cent er INDICATION: - Leukocytosis, COMPARISON: Chest x-ray from November 27, 2017 time d 2:00 AM. TECHNIQUE: PA and lateral chest radiographs FINDINGS: Lines, tubes and hardware: Median sternotomy wir es are stable. Lungs and pleura: Flattening of the diaphragms and widened AP diameter suggest chronic obstructive disease. No focal consolidations are present. No pleural effusions or pneumothoraces are seen. Heart and mediastinum: The c ardiomediastinal silhouette's size and contours are unchanged. Incidental note is made of calcifications in the aortic knob. Bones: No acute bony abnormality is identified. IMPRESSION: No significant change from prior study. UT SECTION: ER Chest 1view DX EXAM: XR CHEST 1 VIEW 11/27/2017 [facility] DATE: 11/27/2017 1:51 AM CDT Cent er INDICATION: - dizziness COMPARISON: Radiograph from outside hospital janel ed 11/26/2017 TECHNIQUE: AP chest, semierect. FINDINGS: Lines and tubes, and life support devices: None. Lungs and pleura: Lungs are hyperinflated with flattening of the domes of the diaphragm. Mild left basilar subsegmental atelectasis noted. Otherwise, no new pulmonary or pleural based abnormality is identified. Heart and mediastinum: Unchanged. Post CABG abdul ges. Bones and soft tissues: Unchanged. IMPRESSION: Hyperinflated anita ngs suggestive of COPD. No significant interval change or acute abnormality. Abdomen/Pelvis w IV EXAM: CT ABDOMEN AND PELVIS WITH CONTRAST [facility] contrast CT DATE: 11/12/2017 6:39 AM IN CLASSROOM TUTOR Sil alvares INDICATION: - Evaluate for mass, perforation, s tricture ADDITIONAL INFORMATION: '77 yo F with PMH of CAD s/p CABG x 2, DM, history of aortic aneurysm s/p repair and dementia presents after her GI doctor performed a barium enema yesterday (11/10) and was told h er to go to the emergency de partment. She had previously undergone a colonoscopy at the end of October and the scope was unable to be passed beyond the sigmoid colon.' COMPARISON: Outside CT on 11/10/2017. TECHNIQUE: Volumetric CT acq uisition of the abdomen and pelvis after the intravenous administration contrast. Axial, coronal and sagittal reconstructions. Postcontrast phases: Venous and delayed. IV contrast: 86 mL of Visipaque 320 Enteric contrast: Gastrografin. DLP: 1040 mGy-cm FINDINGS: Lower thorax: Left lower lob e small calcified granuloma. Heart is normal in size. No pericardial effusion. Liver: Ill-defined segment 6 hypodensity measuri ng 0.9 x 1.9 x 1.3 cm. Biliary tree: No intra- or extrahepatic biliary ductal dilation. Gallbladder: Normal. No CT evidence of gallstone s. Pancreas: Normal. Spleen: Scattered punctate c alcifications are likely a sequelae of prior granulomatous disease. Adrenals: Normal. Kidneys and ureters: Normal. Bladder: Decompressed. Reproductive organs: The quechan savannah is surgically absent. No adnexal masses are identified. Gastrointestinal tract: Ther e is extensive wall thickening in the sigmoid colon and rectum with focal area of narrowing in the distal sigmoid colon (series 5, image 66) Scattered diverticula are noted i n the sigmoid and descending colon. The previously described soft tissue mass on the prior exam is not well seen on this study and likely represented extensive phlegmonous changes. Appendix: Not seen. No inflammation. Peritoneum, mesentery and re troperitoneum: Numerous foci of extraluminal air within an organizing fluid collection are noted inferior to the peritoneal reflection. Lymph nodes: There are mildl y enlarged left paratracheal lymph node measuring 1 cm in short axis. Vasculature: Aneurysmal dila tion of the infrarenal abdominal aorta measuring up to 3.3 cm in diameter. There is aneurysmal dilation of the right common iliac artery. The right common iliac artery is tor tuous. Extensive mixed ather osclerotic plaque of the aorta and its main branches. Bones: Right hip hemiarthrop lasty is noted. There are moderate degenerative changes of the lumbar spine with facet degeneration and vacuum phenomena at L5-S1. Soft tissues: Normal. IMPRESSION: 1. Phlegmonous change with organizing fluid collection containing multiple foci of air inferior to the peritoneal reflection with extensive distal sigmoid and rectal wall thickening and luminal narrowi ng most likely represents focal perforat ion, possibly from an underlying mass. 2. Previously described sof t tissue mass at the rectosigmoid junction is not well-seen on this exam and likely represented phlegmon which has now redistributed. 3. Ill-defined segment 6 hy podensity is suspicious for metastatic disease in setting of primary neoplasm. 4. Nonspecific left para-aortic lymphadenopathy . 5. Infrarenal abdominal aor tic aneurysm and aneurysmal dilation of the right common iliac artery. 6. Extensive atherosclerosis. Chest 1view DX EXAM: XR CHEST 1 VIEW 11/11/2017 [facility] DATE: 11/11/2017 12:35 PM IN CLASSROOM TUTOR Cent er INDICATION: - productive cough COMPARISON: 11/10/2017 TECHNIQUE: AP chest FINDINGS: Lines, tubes and hardware: S ternotomy wires are present. Surgical clips project over the left hilum. Lungs and pleura: No pulmona ry or pleural based abnormality is identified. Pulmonary vascularity is normal. Heart and mediastinum: The h eart size is normal for technique. The aorta is mildly tortuous and calcified. Bones: No acute bony abnormality is identified. IMPRESSION: 1. No acute cardiopulmonary abnormality. Torso-Outside Consult THIS IS A PRELIMINARY REPO RT BY THE ON-CALL RESIDENT. CHANGES TO THIS PRELIMINARY REPORT MAY OCCUR IN AN ADDITIONAL PRELIMINARY OR FINALIZED VERSION. 11/10/2017 [facility] CT IMPRESSION: Center 1. Extensive intrapelvic ex traluminal air and fluid adjacent to the rectosigmoid junction highly concerning for focal perforation of the rectosigmoid colon. Evaluation for an organized abscess is limit ed due to absence of IV cont rast and significant beam hardening artifact from patient's right hip prosthesis. These findings were described on the outside report. 2. Colonic diverticulosis of the descending col on and rectosigmoid colon. 3. Aneurysmal dilatation of the infrarenal abdominal aorta measuring up to 3.4 cm. Extensive vascular atherosclerosis is also noted. 4. Granulomatous disease of the spleen. UT SECTION: Body EXAM: CT ABDOMEN WITHOUT CONTRAST DATE: 11/10/2017 10:31 PM IN CLASSROOM TUTOR INDICATION: - outside study ADDITIONAL INFORMATION: Stud y dated 11/10/2017, outside study from [facility]. History of cough, colon cancer. Additionally rectal bleeding prior to barium enema done earlier the same day. COMPARISON: None. TECHNIQUE: Volumetric CT acq uisition of the abdomen after the intravenous administration contrast. Axial, coronal and sagittal reconstructions. Postcontrast phases: Venous and delayed. IV contrast: None Oral contrast: None. DLP: 598.6 mGy-cm FINDINGS: LUNG BASES: Show presence of mild subseg mental atelectasis predominantly left. Multiple calcified splenic g ranulomas are noted. Evaluation of the liver is limited due to lack of IV contrast. Ill-defined hypodensity noted in segment 6, image #18 of series 201, roughly measuring 2.1 x 1.5 cm in size, this may represent a metastatic lesion. Correlate with dedicated liver protocol CT or MRI. Pancreas, kidneys and adrena ls appear unremarkable. Vascular calcifications are identified in the abdominal aorta, with aneurysmal dilation of the distal aorta, measuring up to 3.1 x 3.5 cm in diameter. There is a trace amount of free fluid present in the pelvis. Stomach is well distended an d appears unremarkable. Visualized small bowel loops are unremarkable with no evidence of thickening, edema or obstruction. Appendix is nonvisualized. A soft tissue mass roughly m easuring 7 x 5 cm (image 65 of series 201) is identified in the posterior pelvis slightly to the right of midline, most likely arising from the region of the distal rectosigm oid. The soft tissue mass ap pears to extend toward the right side, with ill- defined 2.4 x 1.4 cm probable collection, image 65-67 of series 201, this may represent focal abscess versus necrotic extensio n of tumor. Limited due to p resence of streak artifacts from right hip prosthesis, as well as lack of IV contrast. Multiple bubbles/pockets of extraluminal air is also identified along the region of the mass, and rectosigmoid concerning for focal per foration. Multiple diverticula are als o noted in the region of the sigmoid, as well as ascending colon. Residual barium is present in the region of the rectum and rectosigmoid from recent barium enema. Evaluation of the pelvis is limited due to streak artifacts by the right hip prosthesis. Osseous structures show dege nerative changes of the lumbosacral spine. Right hip prosthesis is in place. IMPRESSION: 1. Soft tissue mass in kathy on of rectosigmoid with extraluminal pockets of air concerning for underlying malignancy with perforation/necrosis. 2. Multiple sigmoid and ascending colon diverti cula. 3. Ill-defined hepatic hypo density, may represent metastatic disease. Correlate with dedicated liver protocol CT or MR for further evaluation. 4. Small infrarenal abdominal aortic aneurysm. Consultation Notes No Data Provided for This Section Discharge Summaries No Data Provided for This Section History and Physicals No Data Provided for This Section Vital Signs Vital Sign Value Date Comments Source Weight 49.545 04/08/2019 [facility] BMI Calculated 21.33 04/08/2019 [facility] Height 152.4 cm 04/08/2019 [facility] Systolic (mm Hg) 123 04/08/2019 [facility] Diastolic (mm Hg) 79 04/08/2019 [facility] Heart Rate 49 04/08/2019 [facility] Respitory Rate 16 04/08/2019 [facility] Height 154.94 cm 08/05/2018 [facility] BMI Calculated 21.96 08/05/2018 [facility] Weight 52.727 08/05/2018 [facility] Heart Rate 52 08/05/2018 [facility] Respitory Rate 16 08/05/2018 [facility] Systolic (mm Hg) 154 08/05/2018 [facility] Diastolic (mm Hg) 81 08/05/2018 [facility] Systolic (mm Hg) 163 03/20/2018 [facility] Diastolic (mm Hg) 70 03/20/2018 [facility] Systolic (mm Hg) 128 03/20/2018 [facility] Diastolic (mm Hg) 58 03/20/2018 [facility] Respitory Rate 15 03/20/2018 [facility] Respitory Rate 20 03/20/2018 [facility] Systolic (mm Hg) 113 03/20/2018 [facility] Diastolic (mm Hg) 56 03/20/2018 [facility] Respitory Rate 18 03/20/2018 [facility] Heart Rate 53 03/20/2018 [facility] BMI Calculated 19.78 03/20/2018 [facility] Weight 52.273 03/20/2018 [facility] Height 162.56 cm 03/20/2018 [facility] Weight 52.273 03/13/2018 [facility] BMI Calculated 19.78 03/13/2018 [facility] Height 162.56 cm 03/13/2018 [facility] Systolic (mm Hg) 129 11/30/2017 [facility] Diastolic (mm Hg) 72 11/30/2017 [facility] Heart Rate 75 11/30/2017 [facility] Temperature Oral (F) 98.2 F 11/30/2017 [facility] Respitory Rate 18 11/30/2017 [facility] Respitory Rate 20 11/30/2017 [facility] Systolic (mm Hg) 118 11/30/2017 [facility] Diastolic (mm Hg) 70 11/30/2017 [facility] Temperature Oral (F) 98.2 F 11/30/2017 [facility] Heart Rate 61 11/30/2017 [facility] Temperature Oral (F) 97.6 F 11/30/2017 [facility] Respitory Rate 18 11/30/2017 [facility] Heart Rate 60 11/30/2017 [facility] Systolic (mm Hg) 133 11/30/2017 [facility] Diastolic (mm Hg) 60 11/30/2017 [facility] BMI Calculated 20.66 11/27/2017 [facility] Weight 54.602 11/27/2017 [facility] Height 162.56 cm 11/27/2017 [facility] Temperature Oral (F) 98.4 F [facility]/14[facility] Respitory Rate 18 11/14/2017 [facility] Heart Rate 58 11/14/2017 [facility] Systolic (mm Hg) 150 11/14/2017 [facility] Diastolic (mm Hg) 75 11/14/2017 [facility] Respitory Rate 18 11/14/2017 [facility] Heart Rate 60 11/14/2017 [facility] Temperature Oral (F) 98.5 F 11/14/2017 [facility] Systolic (mm Hg) 127 11/14/2017 [facility] Diastolic (mm Hg) 70 11/14/2017 [facility] Systolic (mm Hg) 134 11/14/2017 [facility] Diastolic (mm Hg) 72 11/14/2017 [facility] Heart Rate 59 11/14/2017 [facility] Respitory Rate 18 11/14/2017 [facility] Temperature Oral (F) 98.5 F 11/14/2017 [facility] Weight 57.784 11/11/2017 [facility] Weight 57.818 11/11/2017 [facility] BMI Calculated 21.88 11/11/2017 [facility] Height 162.56 cm 11/11/2017 [facility] Weight 58.636 11/11/2017 [facility] Encounters Location Location Encounter Encounter Reason Attending ADM DC Stat us Source Details Type Number For Provider Date Date Visit [facility] Bedded [id number] [place] 10/29 10/29 [facility] [place] /2017 [facility] Inpatient [id number] Thad 11/11 11/14 [facility] /2017 [facility] Observation [id number] Thad 11/27 11/30 [facility] /2017 [facility] Phone [id number] 02/24 02/26 [id number]/20 03[facility]21 [facility] Out[facility] [id number] JOSÉ MIGUEL 05/05 Active [facility] [place] Out[facility] [id number] JOSÉ MIGUEL 08/05 Active [facility] [place] [facility] Outpatient [id number] José Miguel 08/05 08/06 [facility] /2017 [facility] Outside [id number] 09/12 09/[address] [facility] Medical /2018 [facility] [place] [facility] Outpatient [id number] JOSÉ MIGUEL 11/04 Active [facility] [place] Out[facility] [id number] José Miguel 04/08 [facility] [facility] [id number] José Miguel 04/08 04/09 [facility] [place] [facility] [id number] José Miguel 08/19 [facility] [id number] José Miguel 08/19 08/19 [facility] [place] Procedures Procedure Code Date Perfomer Comments Source Image-guided fluid [id number] 11/28/2017 Arnel as collection drainage Medic al by catheter (eg, Center abscess, hematoma, seroma, lymphocele, cyst); peritoneal or retroperitoneal, percutaneous Procedure on hip [id number] 06/12/2017 [facility] Bypass [id number] 05/29/2017 [facility] AAA - Repair of [id number] [facility] [place] aortic [facility] aneurysm using [facility] graft [facility] Abdominal [id number] [facility] [place] [facility] CABG - Coronary [id number] [facility] artery bypass graft [facility] Assessment and Plan Assessment and Plan Date Source Extracted from:Title: Team A Progress Note 11/30/2017 [facility] Author: Rob Carranza MD Date: 11/29/17 77 year old woman with CAD s/p C ABG x 2 in 2017, NIDDM, Hx of AAA s/p repair, and tobacco use with chronic bronchitis, is here for cecum abscess and unclear liver lision. Abscess drained on 11/28 . Liver lesion unclear in procedure room , recommended MRI with Eovist. Patient with mild PRANAV. 1.Pelvic abscess in female -IR biopsy and drainage 11/28/17 -Abscess cultures pending -Continue on cipro and flagyl. Day 1: 11/28. 2.Acute kidney injury - likely prerenal from NPO status for procedure - IV bolus challenge, follow up in AM 3.Coronary artery disease -Holding plavix and ASA due to potentialIR liver biopsy -Continue lipitor 40 4.S/p AAA repair - BP well controlled 5.Diabetes mellitus type II, non insulin dependent -Low dose SSI -Carb controlled diet 6.Hypertension - well controlled. lisinopril 2.5 Qdail y. Mild PRANAV today, but ACEi already given. Can hold tomorrow if PRANAV doesn't respond to fluid. 7.Dementia -Continue donepezil -Continue megestrol for appetite stimulation -Continue mirtazapine for insomnia 8.Dyslipidemia - lipitor 9.Hypothyroidism - levothyroxine 10.Liver lesion -MRI abdomen/pelvis with Eovist contras t, per recommedation from IR: Ill- defined wedge-shaped hypoenhancing area measuring 2.1 x 1.3 cm is noted in segment 7 (series 09/11/2000, image 53), with adjacent capsular retraction and subtle linear h ypointense areas. There is no restricted diffusion. Although limited by motion artifact there appears to be contrast enhancement on the delayed images (series 160 1, image 55). Differentials include foca l cholangiohepatitis/ metastatic deposit. Recommend either short-term follow-up magnetic resonance imaging/PET CT versus biopsy. -potential liver bx Friday, if so will hold heparin prior t o procedure 11.Depression - escitalopram subQ heparin (hold tomorrow if IR biopsy happening) cx sensitivities, potential IR liver biopsy Addendum by Gwyn Rice MD on 11/29/2017 20:26 C DT TEACHING ATTENDING ATTESTATION STATEMENT : I have examined this patient and obtained the history and performed a physical examination. I have evaluated the objective data and determined the assessment an d plan. I have seen this patient with Dr Madeline Carranza, medicine resident, and I have discussed the patient in detail on teaching rounds. I have reviewed his progress note below and I agree with the summary o f the interval progress and plan of care outlined by Dr. Carranza in his progress note below. Gwyn Duenas MD Medicine Team A Teaching Service Attending Extracted from:Title: Interventional Radiology Author: Pina Rosenthal NP Date: 11/28/17 Interventional Radiology Consultation Reason for consultation: targeted biopsy of liver lesion and placement of drain into pelvic abscess Referring Physician: Rob Carranza History of Present Illness: Gwendolyn Liu is a 77 year old female with a past medical history of CAD, diabetes, AAA status post repair, chronic bronchitis, hypertension, tobacco abuse, and dementia. she was transferred here [facility] an [facility] on 11/27[facility]17 with weakness and weight loss and diagnosed with a pelvic abscess. She also has a known history of a liver lesion and previously was scheduled t o have this biopsied today. She has bee n holding her Aspirin and Plavix since 11/19/17 in preparation for her liver biopsy. Interventional Radiology is now consulted for targeted biopsy of liver lesion and drainage of pelvic abscess. 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 She lives with her daughter and son in law. She continues to smoke 1/2 pack per day, but denies current and former alcohol and street drug use. Family History: Father: with prostate cancer, CAD, [place] Mother: with colon cancer Brother: bone cancer Sister: with cerebral aneurysm Allergies Reviewed: Allergies: azithromycin, iodine Current Medications: Medications (23) Active Scheduled Meds (13): 11/27/17 atorvastatin 40 mg PO Bedtime 11/27/17 ciprofloxacin (ciprofloxacin 40 0 mg/200 mL intravenous solution) 400 mg IVPB [id number] 200 ml/hr 11/27/17 docusate 100 mg PO BID 11/28/17 donepezil 10 mg PO Daily 11/28/17 escitalopram (Lexapro) 10 mg PO Daily 11/28/17 furosemide (Lasix 20 mg oral tablet) 20 mg PO Daily 11/28/17 levothyroxine 25 microgram PO Q630AM 11/28/17 lisinopril 2.5 mg PO Daily 11/27/17 megestrol (megestrol 40 mg oral tablet) 40 mg PO BI D 11/28/17 metoprolol 25 mg PO Daily 11/27/17 metroNIDAZOLE (Flagyl) 500 mg IVPB [id number] 200 ml/hr 11/27/17 mirtazapine (Remeron) 30 mg PO Bedtime 11/28/17 multivitamin with iron (Multigen Folic) 1 tab PO Da roro Unscheduled Meds: None PRN Meds (9): 11/27/17 Dextrose 50% in Water IV (Dextrose 50% Syringe) 12. 5 gm IVP PRN 11/27/17 Dextrose 50% in Water IV (Dextrose 50% Syringe) 25 gm IVP PRN 11/27/17 glucagon 1 mg IM PRN 11/27/17 insulin lispro 1 unit SUB-Q TID-Before Meals 11/27/17 insulin lispro 2 unit SUB-Q TID-Before Meals 11/27/17 insulin lispro 3 unit SUB-Q TID-Before Meals 11/27/17 insulin lispro 4 unit SUB-Q TID-Before Meals 11/27/17 insulin lispro 5 unit SUB-Q TID-Before Meals 11/27/17 ondansetron 4 mg PO PRN One Time Meds: None Continuous Infusions (1): 11/27/17 Electrolyte Solution 1,000 mL ( Isolyte S PH 7.4 1,000 mL) 1,000 mL 75 ml/hr Labs: 24hr Labs 11/28 0721 POC Performing Locatio See Note Glucose POC 112 H 11/28 0305 Ca Ion WB 1.13 Ca Norm WB 1.13 Magnesium Lvl 2.2 Phosphorus 2.8 Glucose Lvl 63 L BUN 10 Creatinine Lvl 0.80 Sodium Lvl 143 Potassium Lvl 3.5 Chloride Lvl 109 CO2 25 AGAP 12.5 Calcium Lvl 8.3 L eGFR 71 WBC 12.3 H RBC 3.25 L Hgb 8.0 L Hct 25.4 L MCV 78.2 L MCH 24.7 L MCHC 31.6 L RDW 20.6 H Platelet 255 MPV 9.5 Segs 72.9 Monocytes 11.9 Lymphocytes 13.5 L Eosinophils 1.3 Basophils 0.4 Segs-Bands # 9.0 H Lymphocytes # 1.7 Monocytes # 1.5 H Eosinophils # 0.2 Microcyte 1+ 11/27 2112 POC Performing Locatio See Note Glucose POC 174 H 11/27 1607 POC Performing Locatio See Note Glucose POC 81 INR: 1.17 (11/27/17 02:54:07)No qualifying data available. Imaging Studies: 11/12/17 CT of the abdomen/pelvis - 1. Phlegmonous change with organizing f luid collection containing multiple foci of air inferior to the peritoneal reflection with extensive distal sigmoid and rectal wall thickening and luminal narrowi ng most likely represents focal perforation, possibly from a n underlying mass. 2. Previously described soft tissue mas s at the rectosigmoid junction is not well-seen on this exam and likely represented phlegmon which has now redistributed. 3. Ill-defined segment 6 hypodensity is suspicious for metastatic disease in setting of primary neoplasm. 4. Nonspecific left para-aortic lymphadenopathy. 5. Infrarenal abdominal aortic aneurysm and aneurysmal dilation of the right common iliac artery. 6. Extensive atherosclerosis. Review of Systems: Constitutional Symptoms: + low grade fe machelle, + malaise, + weight loss, but unable to quantify Eyes: no visual changes, + wears glasses Ears, Nose, Mouth, Throat: no dysphagia, no hearing deficit Cardiovascular: no chest pain, + CAD, + hypertension Respiratory: + chronic cough, + chronic bronchitis Gastorintenstinal: no nausea, vomiting, diarrhea, + abdominal pain, + pelvic abscess, + diverticulosis Genitourinary: no voiding difficulties Musculoskeletal: + arthritis, status post right hip replace ment Integumentary: no rash, no hives Neurological: + weakness, no headache, + dementia Psychiatry: + depression, no insomnia Endocrine: + diabetes, + hypothyroidism, + dyslipidemia Physical Examination: Vitals Tmp(F) Tmp(C) Ttype B P MAP Pulse RR SpO2 FIO2 ETCO2 11/28 07:23 98.2 36.78 oral 125/68 --- 74 18 93 --- --- 11/28 04:20 99.0 37.22 oral 108/62 --- 84 18 95 --- --- 11/28 00:00 97.7 36.50 oral 106/60 --- 64 18 95 --- --- 11/27 19:40 99.1 37.28 oral 120/66 --- 69 18 95 --- --- 11/27 16:10 98.5 36.94 oral 135/74 --- 72 18 95 --- --- 24 Hr Tmax: 99.1F (37.28c) at 11/27 19:4 0 Vital Signs are the last 5 in the past 48 hours. 24 Hr Tmin: 97.7F (36.50c) at 11/28 00: 00 Weights are the last 5 in 60 days, plus initial. Date Wt(kg) Wt(lb) Ht(cm) Ht(in) Method BM I BSA 11/27 (initial) 54.60 120.12 162.56 64.00 Measured 20.7 1.57 24 Hr Point of Care Glucoses 11/28 0721 Glucose POC 112 H 11/27 2112 Glucose POC 174 H 11/27 1607 Glucose POC 81 Most Recent Scores: 11/28/17 Pain Intensity NRS (0-10) 0 11/27/17 [place] Coma Score 15 11/27/17 Velez Harding Fall Score 13 11/27/17 [place] Score 18 Lines, Tubes, and Drains: 11/27/2017 20:00 Peripheral Lines: Wrist Left 22 gauge Over the needle catheter 11/27/2017 01:41 Peripheral Lines: Hand Right 22 gauge Over the needle catheter General: frail, chronically ill appearing female in no acute distress Head: Normocephalic, atraumatic Eyes: sclera is clear Hearing: normal to spoken voice Speech: Adequate vocabulary, no impediments Nose: [place] nasal turbinates, septum midline, no drainage or deformities Mouth: moist mucous membranes, dentition is poor Neck: Supple, without JVD Resp: even and non labored with scattered rhonchi throughou t lung [place] CV: RRR, without murmurs, rubs or gallops ABD: soft, mildly tender to palpation generally without rebo und/guarding Back/Extremities: lower extremities are without edema Neuro: She is alert and oriented and follows commands. Skin: Clear, no rashes or jaundice. Pa llor is noted. A well approximated, well healed sternotomy incision line is present. Impression: 1. pelvic abscess 2. liver lesion 3. leukocytosis 4. anemia 5. CAD status post CABG 6. chronic bronchitis 7. tobacco abuse 8. dementia 9. hypertension Plan: Plan is for image guided targeted biopsy of liver lesion and placement of drain into pelvic abscess in Interventional Radiology today under moderate sedation. Benefits, risks, and alternatives we re discussed with patient and her family . They verbalize understanding and patient's daughter consents to proceed. She has been NPO since midnight last night in preparation for her procedure toda y and has been off of Aspirin and Plavix since 11/19/17. THANK YOU FOR CONSULTING INTERVENTIONAL RADIOLOGY. IF YOU HAVE ANY QUESTIONS, PLEASE CONTACT [phone]. Addendum by Michele Fernandez MD on 8 11:52 I personally interviewed and examined th e patient with the Nurse Practitioner. I agree with the assessment and plan as delineated in the note above. A total of approximately of 40 minutes was spent with the patient, with one-half of the time spent on counseling, labs and imaging review and discussion. Extracted from:Title: History and Physical Author: Chester Green MD Date: 11/27/17 1.Pelvic abscess in female -IR biopsy and drainage. -Maintainence fluids for weakness Ordered: Admit/Condition, 11/27/17 14:00:00 CDT, Status: Out Patient with Observation Services, Acute, Expected LOS: 1 Midnight, Amrik Hall MD, Admit MD Review/Approve Yes, Isolation: No Isolation/Standard Precautions 2.Coronary artery disease -Holding plavix and ASA due to IR biopsy -Continue lipitor 40 3.S/p AAA repair -Continue lasix, lisinopril to control blood pressure 4.Diabetes mellitus type II, non insulin dependent -Low dose SSI -Carb controlled diet 5.Hypertension -Continue lasix, lisinopril, and metoprolol succinate 25 mg PO daily. 6.Dementia -Continue donepezil -Continue megestrol for appetite stimulation -Continue mirtazapine for insomnia 7.Dyslipidemia -Continue lipitor 8.Hypothyroidism -Continue levothyroxine 9.Liver lesion -Outpatient IR biopsy 10.Depression -Continue escitalopram. SCD, no pharm prophylaxis as she's undergonig a procedure Home I have seen and examined the patient doctors hospital Medicine Team A and I agree with the findibngs and plans above. Monica Hall MD Attending Addendum by Chester Green MD on 11/27/2017 18:12 CDT Put on ciprofloxacin and flagyl for abscess Physical exam: Gen: Looks weak, laying in bed. HEENT: EOMI, PERRL. Resp: clear, no wheezing, rales, or crackles. CV: RRR, no m/r/g. Normal S1/S2 Abd: soft, NT, ND, normotensive. Ext: no edema. Skin: some echymoisis on the arms. Neck: supple. Extracted from:Title: Discharge Summary 11/14/2017 [facility] Author: Nadine Amin MD PHD Date: 11/14/17 Admission Date: 11/11/2017 Discharge Date: 11/11/2017 Admitting Physician/Service: Orville Rome MD/EGS Admission Diagnosis: 1. Perforated colon 2. Rectosigmoid diverticulosis 3. s/p AAA repair 4. s/p CABG Discharge Diagnosis: 1. Perforated colon 2. Rectosigmoid diverticulosis 3. s/p AAA repair 4. s/p CABG 5. Liver mass HPI/Hospital Course:The patient is a 77y o F with PMH of CAD (s/p CABG), s/p AAA repair who presented with suspected rectal perforation. The patient was treated for divericulosis in Jun [address] [facility];. She was pointed out that there wa s concern for cancer in the lesion and also there was a liver lesion concerning for metastases. Sigmoidscopy was performed on 10/29/[address] Whitney which the sco pe was unable to pass due to the edema a nd altered anatomy and no specimen was obtained. The liver lesion was not visualized by US and was unable to have biopsy at [facility]. The patient is also positive for 25-30lbs weight loss since this September. We consulted GI for another sigmoidosc opy for biopsy but due to the presence of perforation, it was thought to be unsafe. We also consulted IR for image guided biopsy and drainage but the mass lesion is unclear and also there is not much to drain, and she was not indicated for the procedure. There is a mass in S6 of the liver, concerining for tumor/metastasis, which will be indicated for image guide d (CT) biopsy, however, as she was on A and plavix for CAD, procedure will not be performed any earlier than 11/18. Thus, the decision was made to send her home on abx as she was tolerating diet. CEA, AFP, CA 19-9 were all wnl. Most Recent Vitals: Vitals Tmp(F) Tmp(C) Ttype B P MAP Pulse RR SpO2 FIO2 ETCO2 11/14 [...] 24 Hr Tmax: 98.8F (37.11c) at 11/13 19:4 1 24 Hr Tmin: 98.1F (36.72c) at 11/13 16:32 36 Hr Tmax: 98.8F (37.11c) at 11/13 19:4 1 36 Hr Tmin: 98.1F (36.72c) at 11/13 16:32 Most Recent Lab: 11/14 0340 Glucose [...] date, if not called by Friday, call [phone] Advised to call/visit: call clinic or vi sit ED for worsening of pains, fever, vomiting or any concerns Activity: as tolerated Diet: adult heart healthy Medicine: See home medicine reconciliati on sheet, she will be on Cipro and Flagyl for another 3 days ATTENDING ATTESTATION: I have seen and examined the patient wit h the above provider (resident/fellow). Futhermore, I concur with their findings and plan as noted above. Extracted from:Title: Interventional Radiology Author: Pina Rosenthal NP Date: 11/13/17 Interventional Radiology Consultation Reason for consultation: targeted liver biopsy Referring Physician: Nadine Amin History of Present Illness: Gwendolyn Liu is a 77 year old female with a past medical history of hypothyroidism, diabetes, CAD status post CABG, aortic aneurysm status post repair, dementia, diverticuliti s, and history of a hepatic lesion. A b iopsy of her hepatic lesion was attempted in [...] and daughter in law. 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 Tobacco Details: Use: Current every day smoker. [...] PO Bedtime 11/11/17 ciprofloxacin 400 mg IVPB [id number] 200 ml/hr 11/11/17 donepezil 10 mg PO Daily 11/11/17 escitalopram (Lexapro) 10 mg PO Daily 11/11/17 furosemide (Lasix 20 mg oral tablet) 20 mg PO Daily 11/11/17 heparin 5,000 unit SUB-Q Q8H 11/11/17 levothyroxine 25 microgram PO Q630AM 11/11/17 lisinopril 2.5 mg PO Daily 11/11/17 melatonin 1 mg PO Bedtime 11/11/17 metoprolol (Toprol-XL 25 mg ora l tablet, extended release) 25 mg PO Daily 11/11/17 metroNIDAZOLE (Flagyl) 500 mg IVPB Q8H 200 ml/hr 11/11/17 mirtazapine (Remeron) 30 mg PO Bedtime 11/11/17 nicotine 14 mg TOP Daily 11/12/17 remove patch 1 patch TOP Daily Unscheduled Meds (1): 11/12/17 iodixanol (Visipaque 320mg/ml) 100 mL IVP ONCALL PRN Meds (9): 11/11/17 Dextrose 50% in Water IV (Dextrose 50% Syringe) 12. 5 gm IVP PRN 11/11/17 Dextrose 50% in [...] Infusions (1): 11/11/17 Electrolyte Solution 1,000 mL ( Isolyte S PH 7.4 1,000 mL) 1,000 mL [...] INR: 1.19 High (11/10/17 22:50:17)No qualifying data availab le. Imaging Studies: 11/12/17 CT of the abdomen/pelvis - 1. Phlegmonous change with organizing f luid collection containing multiple foci of air inferior to the peritoneal reflection with extensive distal sigmoid and rectal wall thickening and luminal narrowi ng most likely represents focal perforation, possibly from a n underlying mass. 2. Previously described soft tissue mas s at the rectosigmoid junction is not well-seen [...] + weakness, no headache, no seizures, + demen tia Psychiatry: no anxiety, no depression, no insomnia Endocrine: + diabetes, + hypothyroidism Physical Examination: Vitals Tmp(F) Tmp(C) Ttype B P MAP Pulse RR SpO2 FIO2 ETCO2 11/13 [...] 24 Hr Tmax: 98.9F (37.17c) at 11/12 16:3 4 Vital Signs are the last 5 in the past 48 hours. 24 Hr Tmin: 98.1F (36.72c) at 11/13 12: 06 Weights are the last 5 in 60 days, plus initial. Date Wt(kg) Wt(lb) Ht(cm) Ht(in) Method BM I BSA 11/11 57.82 127.20 162.56 64.00 Measured 21.9 1.62 11/10 (initial) 58.64 129.00 Estimated 11/11 162.56 64.00 Stated 24 Hr Point of Care Glucoses 11/13 1232 Glucose POC 84 11/13 0607 Glucose POC 105 H 11/13 0012 Glucose POC 119 H 11/12 1737 Glucose POC 129 H Most Recent Scores: 11/13/17 Velez Harding Fall Score 5 11/13/17 Pain Intensity NRS (0-10) 0 11/13/17 [place] Coma Score 15 11/13/17 Garriosn Score 20 Lines, Tubes, and Drains: 11/12/2017 12:50 Peripheral Lines: Forea rm Left 22 gauge Over the needle catheter General: Active, alert, well developed, well nourished, in no acute distress Head: Normocephalic, atraumatic Eyes: sclera is clear Hearing: normal to spoken voice Speech: Adequate vocabulary, no impediments Nose: [place] nasal turbinates, septum midline, no drainage or deformities Mouth: moist mucous membranes, dentition is poor Neck: Supple, without JVD Resp: even and non labored. Breath luis a nds reveal few scattered rhonchi that clear with [...] Plan: Plan is for image guided liver bio psy (targeted) of liver lesion. However, patient has [...] IF YOU HAVE ANY QUESTIONS, PLEASE CONTACT [phone]. Extracted from:Title: EGS Progress Note Author: Nadine Amin MD PHD Date: 11/12/17 Progress Note - Daily [facility] Co mpleted: Nov, 15:52 by Nadine Amin MD PHD RM: [id number] - 01, 3JP GWENDOLYN LIU 77y (: 1940) F Attending: Orville Rome MD Service: Trauma Service Reason for Admission: DIVERTICULITIS Working DRG: Esophagitis, gastroent and misc digest disorder s w/o [facility] [place] Code status: None Specified=FULL CODE Current diet: Isolation: No Isolation/Standard Precautions Allergies: azithromycin, iodine SUBJECTIVE I am hungry OBJECTIVE CT with IV, PO, AR contrast obtained this AM + one small [...] H Pena still necessary (Yes/No): Line still neces gordo (Yes/No): Vitals Tmp(F) Pulse BP RR SpO2 FIO2 11/12 13:34 98.3 53 117/69 20 92 --- 11/12 11:50 97.6 55 126/69 18 93 --- 11/12 08:37 98.2 59 126/74 18 92 --- 11/12 04:24 98.1 57 115/71 18 95 --- 11/11 23:52 98.1 59 102/64 18 95 --- 24 Hr Tmax: 98.4F (36.89c) at 11/11 20:1 0 Vital Signs are the last 5 in [...] 81 mg tablet, chewable) 81 mg PO D aily 11/11/17 atorvastatin 40 mg PO Bedtime 11/11/17 ciprofloxacin 400 mg IVPB [id number] 200 ml/hr 11/11/17 donepezil 10 mg PO Daily 11/11/17 escitalopram (Lexapro) 10 mg PO Daily 11/11/17 furosemide (Lasix 20 mg oral tablet) 20 mg PO Daily 11/11/17 heparin 5,000 unit SUB-Q Q8H 11/11/17 levothyroxine 25 microgram PO Q630AM 11/11/17 lisinopril 2.5 mg PO Daily 11/11/17 melatonin 1 mg PO Bedtime 11/11/17 metoprolol (Toprol-XL 25 mg ora l tablet, extended release) 25 mg PO Daily [...] pain and palpitation Gastrointestinal: negative for nausea an d vomiting, a small bowel movement last night [...] mrg, pulses palpable 2+ in all 4 extremit ies Respiratory: CTAB, non-labored breathing Gastrointestinal: NT/ND Extremities: warm, well perfused Skin: no rashes Neurological: no focal deficits Psychiatric: appropriate mood , alert and oriented CT abd/pelvis 11/12/2017 IMPRESSION: 1. Phlegmonous change with organizing f luid collection containing multiple foci of air inferior to the peritoneal reflection with extensive distal sigmoid and rectal wall thickening and luminal narrowi ng most likely represents focal perforation, possibly from a n underlying mass. 2. Previously described soft tissue mas s at the rectosigmoid junction is not well-seen on this exam and likely represented phlegmon which has now redistributed. 3. Ill-defined segment 6 hypodensity is suspicious for metastatic disease in setting of primary neoplasm. 4. Nonspecific left para-aortic lymphadenopathy. 5. Infrarenal abdominal aortic aneurysm and aneurysmal dilation of the right common iliac artery. 6. Extensive atherosclerosis. ASSESSMENT and PLAN The patient is a 77yo F with PMH of CAD (s/p CABG), s/p AAA repair who presented with suspected rectal perforation. The patient was treated for divericulosis in Jun 2017 at [facility]. She was point ed out that there was concern for cancer in the lesion and also there was a liver lesion concerning for metastases. Sigmoidscopy was performed on 10/29/[address] Whitney which the scope was unable to pas s due to the edema and altered anatomy a nd no specimen was obtained. The liver lesion was not visualized by US and was unable to have biopsy at [facility]. The patient is also positive for 25-30lbs weight loss since this September. #rectosigmoid diverticulosis vs cancer -no pathology available at this moment -tumor markers are wnl -GI consulted but due to the presence of perforation, sigmoidoscopy was not recommended--->IR consult for image guided biopsy Addendum by Aly Ji MD on 11/12/2017 17:18 I have seen and examined the patient. I have reviewed the resident's note and agree with assessment and plan. Extracted from:Title: EGS History and Physical Author: Breanne Mcgovern MD Date: 11/11/17 Attending Surgeon: Dr. Rome Referring Physician: Ang Piedra MD Date of Admission: 11/11/2017 00:27 Admission diagnosis: Concern for perforated rectosigmoid col on Chief Complaint: "They told me to come in" History of Present Illness: 77 yo F with PMH of CAD s/p CABG x 2, DM , history of aortic aneurysm s/p repair and dementia presents after her GI doctor performed a barium enema yesterday (11/10) and was told her to go to the emergency department. She had previously undergon e a colonoscopy at the end of October [...] ended up going to a hospital in [place] due to wait times. The re, a CT abdomen/pelvis (no IV contrast) was performed which was concerning for possible perforation with area of contained air outside of the colon. She was sent to [facility] for continued care. Upon initial interview she [...] vomiting. Of note, she was seen at [facility] in for sigmoid diverticulitis. At that time CT was concerning for possible cancer. She was also noted to have liver lesions concerning for metastases. At that time it was recommended that she ge t an outpatient colonoscopy 6 weeks after resolution of infection to evaluate for malignancy. She was also planned to have an IR guided biopsy of the liver lesion s. Per the patient she he did not have a colonoscopy until this October and they attempted but were unable to biopsy the liver lesions at [facility]. Past Medical History: DM Chronic kidney disease [...] Constitutional symptoms: Denies fever, weight loss, night s weats, fatigue HEENT: Denies ear pain, hearing loss, na delaney drainage, sore throat, tooth pain, hoarseness, eye redness, visual changes Cardiovascular: Denies murmurs, chest pain Respiratory: Reports cough. Denies wheez ing, apnea, cyanosis, difficulty breathing Gastrointestinal: See HPI Genitourinary: Denies dysuria, hematuria, decreased or absen t urine output Musculoskeletal: Denies joint swelling, tenderness, weakness Skin: Denies rashes, dryness, itching Neurological: Denies seizures, loss of c onsciousness, numbness, tingling, weakness Psychiatric: Denies mood changes, sleep problems Endocrine: 23 pound weight loss (reports weight typically increases and decreases). Hematologic / lymphatic: Denies bleeding, jaundice, swollen glands Physical Exam Vitals Tmp(F) Pulse BP RR SpO2 FIO2 11/10 21:02 98.1 62 100/64 21 95 --- 24 Hr Tmax: 98.1F (36.72c) at 03 21:0 2 Vital Signs are the last 5 in the past 48 hours. General appearance: Laying in bed in no acute distress Skin: Integument intact without rashes or erythema HEENT: normocephalic, Pupils equal and r eactive to light, neck without masses or lymphadenopathy Heart: regular rate and rhythm Vascular exam: well perfused. 2+ bilateral DP Lungs: no increased WOB on room air Abdomen: soft, non-tender to palpation, non-distended. Midline exploratory laparotomy scar, no evidence of hernia Genitourinary: deferred Musculoskeletal: no limitation of passive/active motion Neurological: appropriately interactive; CN II-XII intact Rectal: Anus without stricture. No abnor malities to palpation. Stool in vault. No evidence [...] abd/pelvis 11/10 IMPRESSION: 1. Extensive intrapelvic extraluminal a ir and fluid adjacent to the rectosigmoid junction highly concerning for focal perforation of the rectosigmoid colon. Evaluation for an organized abscess is limit ed due to absence of IV contrast and sig nificant beam hardening artifact from patient's right hip prosthesis. These findings were described on the outside report. 2. Colonic diverticulosis of the descending colon and recto sigmoid colon. 3. Aneurysmal dilatation of the infrare nal abdominal aorta measuring up to 3.4 cm. [...] glucose q6h while NPO Breanne Mcgovern MSO: [id number] Addendum #Malnutrition - Will add boost #COPD- emphysema, Chronic bronchitis - CXR # Concern for rectal perforation - gastrograffin enema # CAD - EKG, ECHO Suleman Mejia MD E ATTENDING ATTESTATION: I have seen and examined the patient wit h the above provider (resident/fellow). Futhermore, I concur with their findings and plan as noted above. Addendum by Orville Rome MD on 11/11/2017 16:43 ATTENDING ATTESTATION: I have seen and examined the patient wit h the above provider (resident/fellow). Futhermore, I concur with their findings and plan as noted above. Plan of Care No Data Provided for This Section Social History Social History Date Source Social History TypeResponse 03/13/2018 [facility] Substance Abuse Use: None. Employment/School 1 Alcohol Never Smoking Status Current every day smoker; Type: Cigarett es; Exposure to Tobacco Smoke Unable to obtain; Cigarette Smoking Last 365 Days Yes; Reg Smoking Cessation Counseling No entered on: 08/05/18 [address] Social History TypeResponse 03/13/2018 [facility] Alcohol Never Employment/School 1 Substance Abuse Use: None. Smoking Status Current every day smoker; Type: Cigarett es; Exposure to Tobacco Smoke Unable to obtain; Cigarette Smoking Last 365 Days Yes; Reg Smoking Cessation Counseling No entered on: 04/08/19 1not driving Social History TypeResponse 11/27/2017 [facility] Smoking Status Current every day smoker; Exposure to To bacco Smoke None; Cigarette Smoking Last 365 Days Yes; Reg Smoking Cessation Counseling No entered on: 11/27/17 Family History No Data Provided for This Section Advance Directives No Data Provided for This Section Functional Status No Data Provided for This Section
--- OUTSIDE RECORDS SUMMARY | 2020-05-11 23:03 | XMS REPORT | Summary of Care ---
:1940 Author Organization [facility] Address [address] [place] [id number] Care Team Providers Name Role Phone Milka Primary Care Provider MD Lex Unavailable Osmar Whitney Seat Maker Carmelina Rome MD Surgeon MD Chance Lube Attendant Reason for Visit Reason Comments Refill Request metoprolol Encounter Details Date Type Department Care Team Description 03/14/2020 Telephone [facility] Ladarius Burnett M D Refill Request Cardiology- [address] (metoprolol) [address] [place] [address] Drive, [address] [place], [place] [id number] Allergies Active Allergy Reactions Severity Noted Date Comments Iodine Hives High 12/16/2016 documented as of this encounter (statuses as of 03/14/2020) Medications Medication Sig Dispensed Refills Start End Date Status Date donepezil 5 mg Take 5 mg by 0 Ac tive tablet mouth at bedtime. ALBUTEROL INHALE Inhale. 0 Act nila aspirin 81 mg EC Take 1 tablet 0 Active tablet by mouth daily. [address] 1 tablet 1 Bottle 5 Active mg sublingual under the 7 tablet tongue every 5 (five) minutes as needed for Chest pain. atorvastatin 40 mg Take 1 tablet 30 tablet 1 Active tablet by mouth daily. 7 escitalopram Take 10 mg by 0 Act nila oxalate 10 mg mouth daily. tablet megestrol 40 mg Take 40 mg by 0 Active tablet mouth 2 (two) times daily. zolpidem 10 mg Take 10 mg by 0 A ctive tablet mouth at bedtime as needed for Insomnia. metFORMIN 500 mg Take 500 mg by 0 Active tablet mouth 2 (two) times daily with meals. IRON FUM/FOLIC Take by mouth 0 Active ACID/MV,MIN 15 daily. (HEMOCYTE-PLUS ORAL) MULTIVITAMIN Take by mouth 0 Ac tive ORALIndications: daily. one a day Indications: one a day levothyroxine 25 Take 25 mcg by 0 Active mcg tablet mouth every morning. vitamin B-12 Take 1,000 mcg 0 Ac tive (VITAMIN B-12) by mouth daily. 1,000 mcg tablet diphenhydramine HCl Take by mouth 0 Active (BENADRYL ORAL) daily. triamcinolone Apply to 0 Active acetonide (KENALOG area(s) 2 (two) TOPICAL) times daily. lisinopril 5 mg Take 1 tablet 30 tablet 5 Active tabletIndications: by mouth daily. 9 Coronary artery disease involving lumbee heart without angina pectoris, unspecified vessel or lesion type, S/P AAA repair, Cigarette smoker clopidogrel 75 mg Take 1 tablet 30 tablet 5 Active tablet by mouth daily. 9 metoprolol Take 0.5 30 tablet 0 Active succinate XL 25 mg tablets by 0 24 hr mouth daily. tabletIndications: Please call Coronary artery office and disease involving schedule lumbee heart appointment for without angina more refills. pectoris, unspecified vessel or lesion type, S/P AAA repair, Cigarette smoker metoprolol Take 0.5 30 tablet 2 03/14/20 Discontin ued succinate XL 25 mg tablets by 9 20 (Reorder) 24 hr mouth daily. tabletIndications: Coronary artery disease involving lumbee heart without angina pectoris, unspecified vessel or lesion type, S/P AAA repair, Cigarette smoker documented as of this encounter (statuses as of 03/14/2020) Active Problems Problem Noted Date Coronary artery disease involving lumbee heart without angina pectoris, 06/17/2017 unspecified vessel or lesion type S/P CABG x 2 06/17/2017 documented as of this encounter (statuses as of 03/14/2020) Social History Tobacco Use Types Packs/Day Years Used Date Former Smoker Cigarettes 1.5 30 Quit: 12/17/19 11 Smokeless Tobacco: Never Used Alcohol Use Drinks/Week oz/Week Comments No Sex Assigned at Date Recorded Not on file Job Start Date Occupation Industry Not on file Not on file Not on file Travel History Travel Start Travel End No recent travel history available. documented as of this encounter Last Filed Vital Signs Not on filedocumented in this encounter Plan of Treatment Health Maintenance Due Date Last Done Comments DTaP,Tdap,and Td Vaccines (1 - Tdap) 1951 Zoster Recombinant Vaccine (SHINGRIX) (1 of 2) 1990 LUNG CANCER SCREEN: Recommended for age 55-80 with 30 1995 + pack year history Medicare Wellness Visit 2005 Osteoporosis Screening 2005 PNEUMOCOCCAL VACCINES 65+ (1 of 2 - PCV13) 2005 Depression Screening 03/16/2020 03/16/2019 INFLUENZA VACCINE (#1) 2020 documented as of this encounter Results Not on filedocumented in this encounter Visit Diagnoses Diagnosis Coronary artery disease involving lumbee heart without angina pectoris, unspecified vessel or lesion type S/P AAA repair Other postprocedural status Cigarette smoker Tobacco use disorder documented in this encounter Insurance Payer Benefit Plan / Subscriber ID Effective Dates Phone Addre ss Type Group MEDICARE MEDICARE PART xxxxxxxxxxx 2005-[place] [phone] t [address] [id number] SHEILA GARCIA [phone] MELINA DE LA FUENTE [id number] 2016-Nicolas carroll documented as of this encounter
--- OUTSIDE RECORDS SUMMARY | 2020-05-11 23:03 | XMS REPORT | Continuity of Care Document ---
:1940 Author Organization [facility] t Address [address] [place] [address] Care Team Providers Name Role Phone Asked, Pcp Primary Care Physician Unavailable Lex BARRIENTOS Attending Clinician Ady Damon Attending Clinician GENERAL Attending Clinician Unavailable Sandhya Curran Attending Clinician Wilmar Rock Attending Clinician Miladys Rome Attending Clinician Adan Whitney Attending Clinician JUAN CARLOS Attending Clinician Unavailable Wilmar Rock Admitting Clinician Miladys Rome Admitting Clinician JUAN CARLOS Admitting Clinician Unavailable Problems Condition Condition Condition Status Onset Resolution Last Treating Co mments Source Name Details Category Date Date Treatment Clinician Date DSU-PERFOR Diagnosis Active 2018-03-20 Memoria ATED 02-26 11:18:00 l COLON; 00:00: Rex RECTOSIGMO DSU-PERFOR 00 ID DIVER ATED COLON; RECTOSIGMO ID DIVER Active 02/26/2018 [facility] COLON CA Diagnosis Active 2017-11-27 M emoria - 04:45:00 l COLON CA 00:00: Gerardo calle 00 Active 11/26/2017 [facility] PELVIC Diagnosis Active 2017-12-21 Mem oria ABSCESS 3-21 05:11:00 l PELVIC 00:00: [place] ABSCESS 00 Active 11/26/2017 [facility] GI BLEED Diagnosis Active 2017-11-10 M emoria 11-10 22:16:00 l GI BLEED 00:00: Gerardo n 00 Active 11/10/2017 [facility] DIVERTICUL Diagnosis Active 2017-11-12 Memoria ITIS 11-10 11:46:00 l 00:00: Rex DIVERTICUL 00 ITIS Active 11/10/2017 [facility] ABNORMAL Diagnosis Active 2017-10-29 M emoria IMAGING 10-29 08:39:00 l ABNORMAL 00:00: Gerardo n IMAGING 00 Active 10/29/2017 [facility] Diabetes Diabetes [facility] 00 [place] Acute Acute Disease Active [facility] pulmonary pulmonary 16 [facility] - insufficie insufficie 00:00: Me dical ncy ncy 00 Center following following thoracic thoracic surgery surgery Encephalop Encephalop Disease Active [facility] athy acute athy acute 16 Marjorie kes - 00:00: Medical 00 [place] Cardiogeni Cardiogeni Disease Active [facility] c shock c shock 16 [facility] 00 [place] COPD COPD Disease Active [facility] (chronic (chronic [facility] - obstructiv obstructiv 00:00: Me dical e e 00 Center pulmonary pulmonary disease) disease) Hyperchlor Hyperchlor Disease Active [facility] emic emic 16 [facility] - metabolic metabolic 00:00: Medi ana acidosis acidosis 00 Center Acute Acute Disease Active [facility] blood loss blood loss -16 Marjorie kes - anemia anemia 00:00: Medical 00 Center Acute Acute Disease Active [facility] respirator respirator 9-15 Marjorie kes - y y 00:00: Medical insufficie insufficie 00 Ce nter ncy, ncy, postoperat postoperat nila nila Hypoxemia Hypoxemia Disease Active [facility] 9[facility]15 [facility] 00 [place] Hemoptysis Hemoptysis Disease Active [facility] 9[facility] 00 Center NSTEMI NSTEMI Disease Active [facility] (non-ST (non-ST 9-14 [facility] - elevated elevated 00:00: Medica l myocardial myocardial 00 Ce nter infarction infarction ) ) Rectosigmo Rectosigmo Problem Active U nivers id id [id number] ity of diverticul divert[place] [facility] Liver mass Liver mass Problem Active [facility] nivers [id number] [facility] [place] [facility] 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 Old Problem 2018-02-04 Memor ia myocardial 14:34:14 l infarction Old Gerardo n myocardial infarction 02/04/2018 [facility] Type 2 Problem 2018-03-08 Memor ia diabetes 11:13:12 l mellitus Type 2 Gerardo n without diabetes complicati mellitus ons without complicati ons 03/08/2018 [facility] Unspecifie Problem 2018-02-04 M emoria d asthma, 14:34:14 l uncomplica Gerardo n marian Unspecifie d asthma, uncomplica marian 02/04/2018 [facility] Presence Problem 2018-10-08 Mem oria of 13:42:22 l aortocoron Presence He rmann rene bypass of graft aortocoron rene bypass graft 10/08/2018 [facility] Acute Problem 2018-03-08 Memor ia kidney 11:13:12 l failure, Acute Rex unspecifie kidney d failure, unspecifie d 03/08/2018 [facility] Hyperlipid Problem 2018-03-08 M emoria emia, 11:13:12 l unspecifie Gerardo n d Hyperlipid emia, unspecifie d 03/08/2018 [facility] Hypothyroi Problem 2018-10-08 M emoria dism, 13:42:22 l unspecifie Gerardo n d Hypothyroi dism, unspecifie d 10/08/2018 [facility] Nicotine Problem 2018-03-08 Mem oria dependence 11:13:12 l , Nicotine Gerardo n unspecifie dependence d, , uncomplica unspecifie marian d, uncomplica marian 03/08/2018 [facility] Liver Problem 2018-10-08 Memor ia disease, 13:42:22 l unspecifie Liver Susi nn d disease, unspecifie d 10/08/2018 [facility] Elevated Problem 2018-10-08 Mem oria white 13:42:22 l blood cell Elevated He rmann count, white unspecifie blood cell d count, unspecifie d 10/08/2018 [facility] long term Problem 2018-03-08 Me moria (current) 11:13:12 l use of Long Rex oral term hypoglycem (current) ic drugs use of oral hypoglycem ic drugs 03/08/2018 [facility] Other long Problem 2018-10-08 M emoria term 13:42:22 l (current) Other Gerardo n drug long-term therapy (current) drug therapy 10/08/2018 [facility] Urinary Problem 2018-10-08 Donnie dalton tract 13:42:22 l infection, Urinary Her bashir site not tract specified infection, site not specified 10/08/2018 [facility] Unspecifie Problem 2018-10-08 M emoria d 13:42:22 l protein-ca Gerardo n grady Unspecifie malnutriti d on protein-ca grady malnutriti on 10/08/2018 [facility] Type 2 Problem 2018-10-08 Memor ia diabetes 13:42:22 l mellitus Type 2 Gerardo n with diabetes diabetic mellitus chronic with kidney diabetic disease chronic kidney disease 10/08/2018 [facility] Emphysema, Problem 2018-10-08 M emoria unspecifie 13:42:22 l d Rex Emphysema, unspecifie d 10/08/2018 [facility] Anemia, Problem 2018-10-08 Donnie dalton unspecifie 13:42:22 l d Anemia, Rex unspecifie d 10/08/2018 [facility] Unspecifie Problem 2018-10-08 M emoria d dementia 13:42:22 l without Rex behavioral Unspecifie disturbanc d dementia e without behavioral disturbanc e 10/08/2018 [facility] Chronic Problem 2018-10-08 Donnie dalton kidney 13:42:22 l disease, Chronic Susi nn unspecifie kidney d disease, unspecifie d 10/08/2018 [facility] long term Problem 2018-10-08 Me moria (current) 13:42:22 l use of Long Rex aspirin term (current) use of aspirin 10/08/2018 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 Body mass Problem 2018-10-08 Me moria index 13:42:22 l (BMI) Body [place] 21.0-21.9, mass index adult (BMI) 21.0-21.9, adult 10/08/2018 [facility] Alzheimer' Problem Active 2019-08-21 M emoria s disease 22:22:24 l (disorder) Gerardo n Alzheimer' s disease (disorder) Active Problem 08/21/2019 Automatic ally added by Discern Expert with order of Add Problem Alzheimer' s Disease on April 08, 2019 10:28:40 CDT with order ID: [id number] 7.0 entered by Eliseo Damon. [facility] Coronary Problem Active 2019-08-21 Mem oria arterioscl 22:22:24 l erosis Coronary Gerardo n (disorder) arterioscl erosis (disorder) Active [facility]21/2019 [facility] Dementia Problem Active 2019-08-21 Mem oria (disorder) 22:22:24 l Dementia Gerardo n (disorder) Active Problem 08/21/2019 [facility] Depressive Problem Active 2019-08-21 M emoria disorder 22:22:24 l (disorder) Gerardo n Depressive disorder (disorder) Active Problem 08/21/2019 [facility] Dyslipidem Problem Active 2019-08-21 M emoria ia 22:22:24 l (disorder) Gerardo calle Dyslipidem ia (disorder) Active Problem 08/21/2019 [facility] History of Problem Active 2019-08-21 M emoria repair of 22:22:24 l aneurysm History Susi nn of of repair abdominal of aorta aneurysm (situation of ) abdominal aorta (situation ) Active Problem 08/21/2019 [facility] Hypertensi Problem Active 2019-08-21 M emoria ve 22:22:24 l disorder, Rex systemic Hypertensi arterial ve (disorder) disorder, systemic arterial (disorder) Active Problem 08/21/2019 [facility] Hypothyroi Problem Active 2019-08-21 M emoria dism 22:22:24 l (disorder) Gerardo calle Hypothyroi dism (disorder) Active Problem 08/21/2019 [facility] Lesion of Problem Active 2019-08-21 Me moria liver 22:22:24 l (finding) Lesion Susi nn of liver (finding) Active Problem 08/21/2019 [facility] Diabetes Problem Active 2019-08-21 Mem oria mellitus 22:22:24 l type 2 Diabetes Gerardo n (disorder) mellitus type 2 (disorder) Active Problem 08/21/2019 [facility] DVTRCLI OF Diagnosis Active 2017-11-12 Memoria INTEST, 11:46:00 l PART UNSP, DVTRCLI Her bashir W/O PERF O OF INTEST, PART UNSP, W/O PERF O Active [facility] FEMALE Diagnosis Active 2017-12-21 Mem oria PELVIC 05:11:00 l INFLAMMATO FEMALE Herm daniel RY PELVIC DISEASE, INFLAMMATO UNSP RY DISEASE, UNSP Active [facility] Perforatio Problem 2018-2018-10-08 2018-10-08 Memoria n of 3-15 13:42:22 13:42:22 l intestine 03:07: Rex (nontrauma Perforatio 12 tic) n of intestine (nontrauma tic) 11/20/2017 10/08/2018 [facility] Female Problem 2017-2018-03-08 2018-03-08 M emoria pelvic 12-06 11:13:12 11:13:12 l inflammato Female 03:12: Herm daniel ry pelvic 11 disease, inflammato unspecifie ry d disease, unspecifie d 12/06/2017 03/08/2018 [facility] Diverticul Problem 2018-02-04 2018-02-04 Memoria osis of 11-08 14:34:14 14:34:14 l large 04:13: Rex intestine Diverticul 06 without osis of perforatio large n or intestine abscess without without perforatio bleeding n or abscess without bleeding 8 02/04/2018 [facility] Allergies, Adverse Reactions, Alerts Allergy Allergy Status Severity Reaction(s) Onset Inactive Treating Comm ents Source Name Type Date Date Clinician Iodine Propensi Active [place] ty to 11-10 Methodi adverse 00:00: st reaction 00 s to drug Iodine [facility] [place] And ty to 05-22 eat Methodi Iodide adverse 00:00: shrimps st Containi reaction 00 and other ng s to seafood. Products drug Iodine Propensi Active Hives Pt does [facility] And ty to 05-22 eat [facility] - Iodide adverse 00:00: shrimps Medical Containi reaction [address] ng s seafood. Products Iodine drug Active [facility] SOLN allergy ity [facility] Physici ans Azithrom Propensi Active [place] y[facility] ty to Methodi adverse st reaction s to drug azithrom azithrom Active Memori a ycin ycin l Rex iodine iodine Active Memoria l Rex Family History Family Member Diagnosis Comments Start Date Stop Date Source Natural father Cancer [facility] Natural mother Cancer [facility] Natural sister Cancer [facility] Social History Social Habit Start Date Stop Date Quantity Comments Source Sex Assigned At [facility] Alcohol intake 2018-11-17 2018-11-17 Current [facility] thodist 00:00:00 00:00:00 non-drinker of alcohol (finding) History of tobacco 2018-09-08 Current smoker [place] Nondenominational use 00:00:00 Social History 2018-03-13 2018-03-13 Norman rojas 18:06:48 18:06:48 Cigarettes smoked 2017-05-25 2017-05-[address] [facility] - current (pack per 00:00:00 [facility] - Reported Cigarette 2017-05-25 2017-05-[address] [facility] - pack-years 00:00:00 00:00:00 [facility] Smoking Status Start Date Stop Date Source Social History 2017-11-27 23:04:32 Norman bashir Former smoker 2017-05-25 00:00:00 2017-05-25 00:00:00 [facility] Medications Ordered Filled Start Stop Current Ordering Indication Dosage Frequency Signature Comments Components Source Medication Medication Date Date Medication? Clinician (SIG) Name Name Memantine 2018-09 Yes 10 mg = 1 Mem oria hydrochlori 0-16 tab, PO, l de 10 MG 19:27: BID, # 60 Herm daniel Oral Tablet 10 tab, 6 [Namenda] Refill(s), [facility] donepezil Yes = 1 tab, Donnie dalton 10 mg oral 8-01 PO, Daily, l tablet 15:27: # 30 tabHennaan n 19 3 Refill(s), Pharmacy: [facility] #[id number] Memantine Yes 10 mg = 1 Mem oria hydrochlori 8-01 tab, PO, l de 10 MG 15:27: BID, # 60 Herm daniel Oral Tablet 00 tab, 6 [Namenda] Refill(s), Pharmacy: [facility] #[id number] donepezil No = 1 tab, Donnie dalton 10 mg oral 7-23 PO, Daily, l tablet 00:01: # 30 tabHennaan n 31 3 Refill(s), Pharmacy: [facility] donepezil Yes = 1 tab, Donnie dalton 10 mg oral 5-09 PO, Daily, l tablet 15:05: # 90 tabHennaan n 15 Refill(s) 1, Pharmacy: [facility] donepezil 2017-09 No 10 mg = 1 Mem oria 10 mg oral -28 tab, PO, l tablet 19:42: Daily, # [place] 00 90 tab, 1 Refill(s), Pharmacy: [facility] GoLYTELY Yes See Memoria oral powder 6-19 Instructio l for 15:10: ns, Take [place] reconstitut 00 as ion directed by physician. Give Jug., # 1 ea, 0 Refill(s), Pharmacy: [facility] [id number] ciprofloxac No 500 mg = 1 Memoria in 500 mg 3-25 tab, PO, l oral tablet 23:21: Q12H, X 8 H ermann 35 day, # 16 tab, 0 Refill(s) Metronidazo No 500 mg = 1 Memoria le 500 MG 3-25 tab, PO, l Oral Tablet 23:21: TID, X 8 He rmann 29 day, # 24 tab, 0 Refill(s) Metronidazo No 500 mg = 1 Memoria le 500 MG 3-25 tab, PO, l Oral Tablet 16:52: TID, X 8 He rmann 00 day, # 24 tab, 0 Refill(s) ciprofloxac No 500 mg = 1 Memoria in 500 mg 3-25 tab, PO, l oral tablet 16:52: Q12H, X 8 H ermann 00 day, # 16 tab, 0 Refill(s) heparin No Notes: Memoria 3-24 porcine l 21:00: heparin [place] 00 NS (Bolus) No 1,000 mL, Me moria IV 3-24 500 ml/hr, l 16:48: Infuse [place] 00 Over: 2 hr, Route: IV, 1,000, Drug form: INJ, ONCE, Priority: STAT, Dosing Weight 54.602 kg, Start date: 11/29/17 11:48:00 CDT, Stop date: 11/29/17 11:48:00 CDT Tramadol No Notes: Not Mem oria 3-23 to exceed l 22:01: 400mg/day. Rex 00 (Same As: Ultram) Tylenol No Notes: Do Memor ia 3-23 not exceed l 21:55: 4 gm/day. Rex 00 (Same as: Tylenol) Midazolam No 1 mg, Memoria 3-23 Route: l 19:30: IVP, Drug form: INJ, ONCE, Dosing Weight 54.602, kg, Start date: 11/28/17 14:30:00 CDT, Stop date: 11/28/17 14:30:00 CDT Fentanyl No 50 Memoria 3-23 microgram, l 19:30: Route: Rex 00 IVP, Drug form: INJ, ONCE, Dosing Weight 54.602, kg, Start date: 11/28/17 14:30:00 CDT, Stop date: 11/28/17 14:30:00 CDT metoprolol No Notes: Memor ia 3-23 (Same as: l 14:00: Toprol XL) Do Not Crush Hemocyte No Notes: Memoria Plus 3-23 Non-Formul l 14:00: rene Lisinopril No Notes: Memor ia 3-23 1.25 mg = l 14:00: 1/2 x 2.5 Rex 00 mg TAB (Same as: Prinivil) Multigen No Notes: Memoria Folic 3-23 Same as l 14:00: Iron/C/B12 [place] 00 /FA/SA Furosemide No Notes: Memor ia 20 MG Oral 3-23 (Same as: l Tablet 14:00: Lasix) [place] [Lasix] 00 May cause GI upset. Give with food or milk. Lexapro No Notes: Memoria 3-23 (Same as: l 14:00: Lexapro) donepezil No Notes: Memori a 3-23 (Same as: l 14:00: Aricept) metoprolol No metoprolol M emoria 25 mg oral 3-23 25 mg oral l tablet, 14:00: tablet, Rex extended 00 extended release release, 25 mg, Route: PO, Daily, 11/28/17 9:00:00 CDT, Duration: 30 day, Stop date: 12/27/17 9:00:00 CDT Thyroxine No Notes: Memori a 3-23 Take 1 l 11:30: hour [place] 00 before or 2 hours after meal; Enteral feeds may interefere with the absorption of this medication . (Same as:Levothr oid) Remeron No Notes: Memoria 3-23 (Same l 02:00: as:Remeron [place] ) atorvastati No Notes: Donnie dalton n -23 (Same as: l 02:00: Lipitor) Rex 00 Flagyl No 500 mg, Memoria 3-23 100 mL, l 00:00: Route: [place] 00 IVPB, Drug form: INJ, [id number], Dosing Weight 54.602, kg, Start date: 11/27/17 19:00:00 CDT, Duration: 7 day, Stop date: 12/04/17 3:30:00 CDT, ABX Indication : Intra-abdo elizabeth Infection 200 ML No 400 mg, Memoria Ciprofloxac - 200 mL, l in 2 MG/ML 00:00: Route: Susi nn Injection 00 IVPB, Drug form: INJ, [id number], Dosing Weight 54.602, kg, Start date: 11/27/17 19:00:00 CDT, Duration: 7 day, Stop date: 12/04/17 7:00:00 CDT, ABX Indication : Intra-abdo elizabeth Infection Docusate No Notes: Memoria 3-22 (Same as: l 22:00: Colace) [place] (Do Not Crush) Megestrol No Notes: Memori a Acetate 40 -22 (Same as: l MG Oral 22:00: Megace) [place] Tablet 00 WASTE: F/P - Black; E - Yellow Dextrose No 25 gm, 50 Donnie dalton 50% Syringe 3-22 mL, Route: l 19:09: IVP, Drug Rex 00 Form: INJ, Dosing Weight 57.784, kg, PRN, PRN Blood Glucose Results, Start date: 11/27/17 14:09:00 CDT, Duration: 30 day, Stop date: 12/27/17 14:08:00 CDT Glucagon No 1 mg, Memoria 3-22 Route: IM, l 19:09: Drug form: [place] 00 PDR/INJ, PRN, Dosing Weight 57.784, kg, PRN Blood Glucose Results, Start date: 11/27/17 14:09:00 CDT, Duration: 30 day, Stop date: 12/27/17 14:08:00 CDT Insulin No Notes: Memoria Lispro 11-27 (Same as: l 19:09: Humalog ) Roll in palms of hands gently; Do not shake `vigorousl y. "Single Patient Use Only " WASTE: F/P - Black; E - Municipal Trash Bin Stable for 28 days at room temperatur e. Expires in days from ____Date Ondansetron No Notes: Donnie dalton 11-27 (Same as: l 19:05: Zofran) Sulfamethox No Notes: One Memoria azole 800 11-27 DS tablet l MG / 14:00: = Trimethopri 00 trimethopr m 160 MG im 160mg + Oral Tablet sulfametho [Bactrim] xazole 800 mg Dose based on trimethopr im component On empty stomach with a glass of water. (Same As: Bactrim DS, Septra DS) Isolyte S No Notes: Memori a PH 7.4 11-27 (Same as: l 1,000 mL 09:21: Isolyte S daniel PH 7.4) Metronidazo No 500 mg = 1 Memoria le 500 MG 3-09 tab, PO, l Oral Tablet 14:45: Q8H, X 3 He rmann [Flagyl] day, # 9 tab, 0 Refill(s) ciprofloxac No 500 mg = 1 Memoria in 500 mg 3-09 tab, PO, l oral tablet 14:45: Q12H, X 3 H ermann 00 day, # 6 tab, 0 Refill(s) 24 HR No = 1 patch, Memori a Nicotine 3- TOP, l 0.583 MG/HR 14:45: Daily, X He rmann Transdermal 00 day, # Patch 30 patch, [Habitrol] 0 Refill(s) Aspirin 81 No Notes: Memor ia MG Chewable 3-07 Take with l Tablet 15:00: food. Rex 00 remove No Notes: Memoria patch 3-07 Remove old l 15:00: patch Rex 00 before applicatio n of new patch. WASTE: F/P - P Waste Black; E - P Waste Black iodixanol No Notes: Memori a 3-07 (Same as: l 13:18: Visipaque) . WASTE: F/P - Black; E - Municipal Trash Bin Diphenhydra No Notes: Donnie dalton mine 3-07 (Same as: l 12:00: Benadryl) Prednisone No Notes: Memor ia 3-07 (Same as: l 12:00: PredniSONE ) Take with food. Prednisone No Notes: Memor ia 3-07 (Same as: l 06:01: PredniSONE ) Take with food. 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 24 HR No = 1 patch, Memori a Nicotine 3-06 Transderma l 0.875 MG/HR 21:59: l, Daily, H ermann Transdermal 00 0 Patch Refill(s) Megestrol Yes 40 mg = 1 Mem oria Acetate 40 3-06 tab, PO, l MG Oral 21:59: BID, 0 [place] Tablet 00 Refill(s) zolpidem 5 No 5 mg = 1 Mem oria mg oral 3-06 tab, PO, l tablet 21:59: PRN, 0 Refill(s) Hemocyte Yes 1 cap, PO, Mem oria Plus 3-06 Daily, 0 l 21:59: Refill(s) Rex 00 ondansetron Yes 4 mg = 1 Me moria 4 mg oral 3-06 tab, PO, l tablet 21:59: PRN, 0 Refill(s) Nicotine No Notes: Memoria 3-06 (Same as: l 18:39: Habitrol) [place] 00 "Remove old patch before applicatio n of new patch" WASTE: F/P - P Waste Black; E - P Waste Black 24 HR No 25 mg, 1 Memoria Metoprolol 3-06 tab, l Tartrate 25 15:00: Route: PO, Rex MG Extended 00 Drug form: Release ERTAB, Tablet Daily, [Toprol] Start date: 11/11/17 9:00:00 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 Give with food or milk. Lexapro No Notes: Memoria 3-06 (Same as: l 15:00: Lexapro) [place] 00 donepezil No Notes: Memori a 3-06 (Same as: l 15:00: Aricept) [place] 00 heparin No Notes: Memoria 3-06 porcine l 14:00: heparin [place] 00 Thyroxine No Notes: Memori a 3-06 Take 1 l 12:30: hour Rex 00 before or 2 hours after meal; Enteral feeds may interefere with the absorption of this medication . 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 "Single Patient Use Only " WASTE: F/P - Black; E - Municipal Trash Bin Stable for 28 days at room temperatur e. 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, Duration: 30 day, Stop date: 12/11/17 1:24:00 CDT Mirtazapine No 30 mg = 1 M emoria 30 MG Oral 3-06 tab, PO, l Tablet 06:21: Bedtime, Crow Goldman nn [Remeron] 00 30 tab, 0 Refill(s) metoprolol Yes 25 mg = 1 Me moria 25 mg oral 3-06 tab, PO, l tablet, 06:21: Daily, Crow Carrillo n extended 00 30 tab, 0 release Refill(s) Metformin 2018 Yes 500 mg, Memor ia 3-06 PO, BID, 0 l 06:21: Refill(s) Lisinopril 2017-0 Yes 2.5 mg, Donnie dalton 3-06 PO, Daily, l 06:21: 0 Refill(s) atorvastati 2017- Yes 40 mg = 1 M emoria n 40 mg 3-06 tab, PO, l oral tablet 06:21: Bedtime, Crow Goodman 00 30 tab, 0 Refill(s) Escitalopra Yes 10 mg = 1 M emoria m 10 MG 3-06 tab, PO, l Oral Tablet 06:21: Daily, # He rmann [Lexapro] 00 30 tab, 0 Refill(s) levothyroxi Yes 25 Memori a ne 25 mcg 306 microgram l (0.025 mg) 06:21: = 1 tab, Her bashir oral tablet 00 PO, Daily, # 30 tab, 0 Refill(s) Furosemide Yes 20 mg = 1 Me moria 20 MG Oral 3-06 tab, PO, l Tablet 06:21: PRN, # 30 Gerardo n [Lasix] 00 tab, 0 Refill(s) donepezil No 10 mg = 1 Mem oria 10 mg oral 3-06 tab, PO, l tablet 06:21: Daily, # [place] 00 30 tab, 0 Refill(s) clopidogrel No 75 mg = 1 M emoria 75 MG Oral 3-06 tab, PO, l Tablet 06:21: Daily, # Rex [Plavix] 00 30 tab, 0 Refill(s) Aspirin No 81 mg, PO, Donnie dalton 306 Daily, 0 l 06:21: Refill(s) Rex 00 Isolyte S No Notes: Memori a PH 7.4 11-11 (Same as: l 1,000 mL 06:14: Isolyte S Herm daniel 00 PH 7.4) Flagyl No Notes: Memoria 11-11 (Same as: l 06:14: Flagyl) [place] 00 Avoid alcohol. Ciprofloxac No Notes: Do M emoria in 11-11 not l 06:14: refrigerat [place] 00 e Docusate No Notes: Memoria Sodium 100 11-11 (Same as: l MG Oral 06:14: Colace) Rex Capsule 00 (Do Not Crush) metoprolol 2016-09 Yes TAKE 1/[address] [facility] (TOPROL-XL) 1-17 TABLET(12. Marjorie kes - 25 MG 24 hr 00:00: 5 MG) BY Va dical tablet 00 MOUTH Center DAILY lisinopril 2016-09 Yes TAKE 1 [facility] (PRINIVIL,Z 0-12 TABLET(2.5 Marjorie kes - ESTRIL) 2.5 00:00: MG) BY Medi ana MG tablet 00 MOUTH Center DAILY multivitami 2016-09 Yes 1{tbl} QD Take [address] [facility] per 0-05 tablet by [facility] - tablet 12:41: mouth Medical 17 daily. Center HYDROcodone 2016-09 Yes 1{tbl} Take [address] -acetaminop 0-05 tablet by Tip es - hen (NORCO 12:40: mouth Medica l 10-325) 55 every 6 Center 10-325 mg (six) per tablet hours as needed for Pain. metoprolol Yes TAKE 1/[address] [facility] (TOPROL-XL) 9-21 TABLET(12. Marjorie kes - 25 MG 24 hr 00:00: 5 MG) BY Me dical tablet 00 MOUTH Center DAILY lisinopril Yes TAKE 1 [facility] (PRINIVIL,Z 9-21 TABLET(2.5 Marjorie kes - ESTRIL) 2.5 00:00: MG) BY Medi ana MG tablet 00 MOUTH Center DAILY clopidogrel Yes TAKE [address] [facility] (PLAVIX) 75 9-21 TABLET BY Tip es - mg tablet 00:00: MOUTH Medical 00 DAILY. Center nitroglycer Yes .4mg Place 0.[address] in 9-14 mg under [facility] - (NITROSTAT) 18:08: the tongue Medical 0.4 MG SL 37 every 5 Center tablet (five) minutes as needed for Chest pain Put 1 pill under tongue every 5min as needed for chest pain.No more than 3 doses in 15min.Call 911 if pain is unrelieved 5min after 1st dose . calcium Yes 1{tbl} Take [address] [facility] [address] carbonate-v 9-14 tablet by Tip es - itamin D3 18:08: mouth 2 Medic al (CALCIUM- 36 (two) Center TAMIN D) times 500 daily with mg(1,250mg) breakfast -200 unit and per tablet dinner. donepezil Yes 10mg QD Take [address] (ARICEPT) 9-14 by mouth [facility] - 10 MG 18:08: nightly. Medical tablet 36 Center metFORMIN Yes 500mg Take [address] [facility] (GLUCOPHAGE 9-14 mg by [facility] - ) 500 MG 18:08: mouth 2 Medica l tablet 36 (two) Center times daily with breakfast and dinner. albuterol Yes 1{puff} Inhale [address] HFA 9-14 puff by [facility] - (VENTOLIN 18:08: mouth via Med ical HFA) 90 36 inhaler Center mcg/actuati every 6 on inhaler (six) hours as needed for Wheezing (SOB). nicotine Yes 1{patch Q24H Place [address] [facility] (NICODERM 9-14 } patch onto Luke s - CQ) 21 18:08: the skin Medical mg/24 hr 36 daily. Center patch atorvastati Yes 40mg QD Take [address] [facility] n (LIPITOR) 9-14 by mouth Luke s - 40 MG 18:01: daily. Medical tablet 57 Center aspirin 81 Yes 81mg QD Take [address] MG EC 9-14 by mouth [facility] - tablet 18:01: daily. Medical 56 Center aspirin Yes 81mg Take 81 mg [place] (ECOTRIN) 4-10 by mouth. Metho di 81 MG 00:00: st enteric 00 coated tablet Calcium Calcium Yes Alfredo not [facility] Carbonate Carbonate [facility] defined [facility] Hemocyte Hemocyte Yes Alfredo not [facility] Plus Plus Sean defined [facility] Donepezil Donepezil Yes Alfredo not [facility] HCl HCl [facility] Nitroglycer Nitroglycer Yes Alfredo not [facility] in in [facility]ada defined [facility] Metformin Metformin Yes Alfredo not [facility] HCl HCl [facility] atorvastati atorvastati Yes Alfredo not [facility] n n [facility]ada defined [facility] Zofran Zofran Yes Alfredo not [facility] clopidogrel clopidogrel Yes Alfredo not [facility]ada defined [facility] Multivitami Multivitami Yes Alfredo not [facility] n Adults n Adults Sean defined Marjorie kes - 50+ 50+ [facility] Zolpidem Zolpidem Yes Alfredo not [facility] Tartrate Tartrate [place] defined [facility] Metoprolol Metoprolol Yes Alfredo not [facility] Succinate Succinate [facility]ada [facility] Lisinopril Lisinopril Yes Alfredo not [facility] Aspirin 81 Aspirin 81 Yes Alfredo not [facility]ada [facility] albuterol albuterol Yes Alfredo not [facility]ada defined [facility] Megestrol Megestrol Yes Alfredo not [facility] Acetate Acetate [facility] defined [facility] Mirtazapine Mirtazapine Yes Alfredo not [facility] Furosemide Furosemide Yes Alfredo not [facility] Escitalopra Escitalopra Yes Alfredo not [facility] m Oxalate m Oxalate [facility] Magnesium Magnesium Yes Alfredo not [facility] Oxide Oxide [facility] Vital Signs Vital Name Observation Time Observation Value Comments Source Weight 2019-04-08 Norman Carrillo n 15:08:00 BMI Calculated 2019-04-08 [facility] 15:08:00 Height 2019-04-08 152.4 cm Norman Gerardo n 15:08:00 Systolic (mm Hg) 2019-04-08 [facility] rmann 15:08:00 Diastolic (mm Hg) 2019-04-08 [facility] ermann 15:08:00 Heart Rate 2019-04-08 Norman Aguillonan n 15:08:00 Respitory Rate 2019-04-08 [facility] daniel 15:08:00 Height 2018-08-05 154.94 cm Norman Gerardo n 19:21:00 BMI Calculated 2018-08-05 [facility] daniel 19:21:00 Weight 2018-08-05 Norman Aguillonan n 19:21:00 Heart Rate 2018-08-05 Norman Aguillonan n 19:21:00 Respitory Rate 2018-08-05 [facility] daniel 19:21:00 Systolic (mm Hg) 2018-08-05 [facility] rmann 19:21:00 Diastolic (mm Hg) 2018-08-05 [facility] 19:21:00 BP Systolic 2018-03-26 124 mm[Hg] Location: [facility]; [facility] :17:00 Position: [place] [facility] Sitting BP Diastolic 2018-03-26 75 mm[Hg] Location: [facility]; [facility] 13:17:00 Position: [place] [facility] Sitting Weight 2018-03-26 115 [lb_av] [facility] 13:17:00 [place] [facility] Body Mass Index 2018-03-26 19.74 kg/m2 [facility] Calculated 13:17:00 [place] [facility] Temperature 2018-03-26 97.8 [degF] Method: [facility] 13:17:00 Tympanic [place] [facility] Heart Rate 2018-03-26 78 /min [facility] :17:00 [place] [facility] Systolic (mm Hg) 2018-03-20 [facility] 21:43:00 Diastolic (mm Hg) 2018-03-20 [facility] 21:43:00 Systolic (mm Hg) 2018-03-20 [facility] 21:00:00 Diastolic (mm Hg) 2018-03-20 [facility] 21:00:00 Respitory Rate 2018-03-20 [facility] 21:00:00 Respitory Rate 2018-03-20 [facility] 20:45:00 Systolic (mm Hg) 2018-03-20 [facility] 20:45:00 Diastolic (mm Hg) 2018-03-20 [facility] 20:45:00 Respitory Rate 2018-03-20 [facility] 20:30:00 Heart Rate 2018-03-20 [facility] Gerardo n 17:11:00 BMI Calculated 2018-03-20 [facility] 17:11:00 Weight 2018-03-20 [facility] Gerardo n 17:11:00 Height 2018-03-20 162.56 cm [facility]ardo n 17:11:00 Weight 2018-03-13 [facility] n 17:57:00 BMI Calculated 2018-03-13 [facility] 17:57:00 Height 2018-03-13 162.56 cm [facility] Gerardo n 17:57:00 BP Systolic 2018-02-12 117 mm[Hg] [facility] 14:26:00 [place] [facility] BP Diastolic 2018-02-12 71 mm[Hg] [facility] 14:26:00 [place] [facility] Height 2018-02-12 64 [in_us] [facility] 14:26:00 [place] [facility] Weight 2018-02-12 117 [lb_av] [facility] 14:26:00 [place] [facility] Body Mass Index 2018-02-12 20.08 kg/m2 [facility] Calculated 14:26:00 [place] [facility] Temperature 2018-02-12 97.9 [degF] [facility] 14:26:00 [place] [facility] Heart Rate 2018-02-12 71 /min [facility] 14:26:00 [place] [facility] Systolic (mm Hg) 2017-11-30 [facility] 13:29:00 Diastolic (mm Hg) 2017-11-30 [facility] 13:29:00 Heart Rate 2017-11-30 [facility]ardo n 13:29:00 Temperature Oral 2017-11-30 98.2 F [facility] (F) 13:29:00 Respitory Rate 2017-11-30 [facility] 13:29:00 Respitory Rate 2017-11-30 [facility] 09:32:00 Systolic (mm Hg) 2017-11-30 [facility] 09:32:00 Diastolic (mm Hg) 2017-11-30 [facility] 09:32:00 Temperature Oral 2017-11-30 98.2 F [facility] (F) 09:32:00 Heart Rate 2017-11-30 [facility] Gerardo n 09:32:00 Temperature Oral 2017-11-30 97.6 F [facility] (F) 01:07:00 Respitory Rate 2017-11-30 [facility] 01:07:00 Heart Rate 2017-11-30 [facility] Gerardo n 01:07:00 Systolic (mm Hg) 2017-11-30 [facility] 01:07:00 Diastolic (mm Hg) 2017-11-30 [facility] 01:07:00 BMI Calculated 2017-11-27 [facility] 21:15:00 Weight 2017-11-27 [facility]ardo n 21:15:00 Height 2017-11-27 162.56 cm [facility] Gerardo n 21:15:00 Temperature Oral 2017-11-14 98.4 F [facility] (F) 13:57:00 Respitory Rate 2017-11-14 [facility] 13:57:00 Heart Rate 2017-11-14 [facility] Gerardo n 13:57:00 Systolic (mm Hg) 2017-11-14 [facility] 13:57:00 Diastolic (mm Hg) 2017-11-14 [facility] 13:57:00 Respitory Rate 2017-11-14 [facility] 10:00:00 Heart Rate 2017-11-14 [facility] Gerardo n 10:00:00 Temperature Oral 2017-11-14 98.5 F [facility] Ramez rmann (F) 10:00:00 Systolic (mm Hg) 2017-11-14 [facility] Ramez rmann 10:00:00 Diastolic (mm Hg) 2017-11-14 [facility] 10:00:00 Systolic (mm Hg) 2017-11-14 [facility] 05:27:00 Diastolic (mm Hg) 2017-11-14 [facility] 05:27:00 Heart Rate 2017-11-14 [facility] Gerardo n 05:27:00 Respitory Rate 2017-11-14 [facility] 05:27:00 Temperature Oral 2017-11-14 98.5 F [facility] Ramez rmann (F) 05:27:00 Weight 2017-11-11 Norman Aguillonan n 12:54:00 Weight 2017-11-11 Norman Gerardo n 09:31:00 BMI Calculated 2017-11-11 [facility] 09:31:00 Height 2017-11-11 162.56 cm [facility] Gerardo n 09:31:00 Weight 2017-11-11 [facility] Gerardo n 03:02:00 Procedures Procedure Date / Time Performed Performing Clinician [facility] e Image-guided fluid 2017-11-28 20:28:38 [facility] drainage by catheter (eg, abscess, hematoma, seroma, lymphocele, cyst); peritoneal or retroperitoneal, percutaneous Procedure on hip 2017-06-12 [facility] 2017-05-29 05[facility]00:00 [facility] [place] [facility] bashir 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 Abdominal hyste[facility] CABG - Coronary artery [facility] [place] bypass graft Plan of Care Planned Activity Planned Date Details Comments Source Future Scheduled 2020-06-08 INFLUENZA VACCINE [place] [facility] 00:00:00 [code = INFLUENZA VACCINE] Future Scheduled 2020-05-09 INFLUENZA VACCINE (#1) [facility] 00:00:00 [code = INFLUENZA Medical Ce nter VACCINE (#1)] Future Scheduled 2017-11-[address] [facility] Marjorie kes - Test 00:00:00 measurement Medical Center (procedure) [code = 08743984] Future Scheduled 2006-05-[address] [facility] [facility] - Test 00:00:00 WELLNESS (YEAR 2 or Medical Center FIRST YEAR if no IPPE) [code = MEDICARE ANNUAL WELLNESS (YEAR 2 or FIRST YEAR if no IPPE)] Future Scheduled 2005 65+ PNEUMOCOCCAL [place] [facility] 00:00:00 VACCINE (1 of 2 - PCV13) [code = 65+ PNEUMOCOCCAL VACCINE (1 of 2 - PCV13)] Future Scheduled 2005 [address]OCCAL [address] - Test 00:00:00 LOW/MEDIUM RISK (1 of Medica l Center 2 - PCV13) [code = PNEUMOCOCCAL 65+ LOW/MEDIUM RISK (1 of 2 - PCV13)] Future Scheduled 1990 SHINGLES VACCINES (#1) [place] [facility] 00:00:00 [code = SHINGLES VACCINES (#1)] Future Scheduled 1950 DIABETIC FOOT EXAM [place] [facility] 00:00:00 [code = DIABETIC FOOT EXAM] Future Scheduled 1950 URINE MICROALBUMIN [place] [facility] 00:00:00 [code = URINE MICROALBUMIN] Future Scheduled 1950 DIABETIC EYE EXAM [facility] - Test 00:00:00 [code = DIABETIC EYE Medical Center EXAM] Future Scheduled [address] [facility] - Test 00:00:00 examination Medical Center (regime/therapy) [code = 952216435] Future Scheduled 1950 Urine screening for [facility] - Test 00:00:00 protein (procedure) Medical Center [code = 312849477] Future Scheduled 1940 DIABETIC RETINAL EYE [place] [facility] 00:00:00 EXAM [code = DIABETIC RETINAL EYE EXAM] Encounters Start End Encounter Admission Attending Care Care Encounter Source Date/Time Date/Time Type Type Clinicians Facility Department ID 2020-05-08 2020-05-08 [facility] [id number] 00:00:00 00:00:00 Ladarius Luo [id number] Skip [id number] Lang [id number] nal 059 [facility] 2019-08-19 2019-08-19 Outpatient DARIA Damon [id number] 10:00:00 10:00:00 Eliseo 04 Ady 2019-04-08 2019-04-08 Outpatient DARIA Damon [id number] 10:15:00 23:59:59 Eliseo 03 [facility] 2018-12-29 2018-12-29 [facility] [id number] 15:36:00 15:36:00 [facility] Clin[facility] 2018-12-17 2018-12-17 [facility] [id number] [facility] 13:00:00 13:00:00 [facility] ent Clinics 2018-12-17 2018-12-17 [facility] [id number] [address] 10:30:00 10:30:00 [facility] ent Clinics 2018-11-12 2018-11-12 [facility] [id number] 13:30:00 13:30:00 [facility] ent Clinics 2018-09-12 2018-09-13 Outpatient MISCHER GERMÁNSCHER [id number] 09:27:00 23:59:59 2018-08-05 2018-08-05 Outpatient DARIA Damon [id number] 13:00:00 23:59:59 Eliseo Ady 2018-03-26 2018-03-26 [facility] [place], operated [facility] [id number] Univers 13:30:00 13:30:00 t; SERVICE Surgery ity [place], [place] SERVICE Physici ans 2018-03-20 2018-03-20 Outpatient ANABELLA Curran [facility] [id number] 11:08:00 23:59:00 Pedro Taryn Lundy [facility] 2018-02-24 2018-02-25 Outpatient [id number] 09:54:00 23:59:59 [id number] 2018-02-12 2018-02-12 Appointmen GENERAL, [facility] General [id number] Univers 13:30:00 13:30:00 t; [place] 2017-12-18 2017-12-18 Appointmen GENERAL, [facility] [id number] Univers 13:30:00 13:30:00 t; [place] SERVICE Physici ans 2017-11-27 2017-11-30 Outpatient Shweta, [facility] [id number] 01:19:00 12:45:00 Ron 80 [place] 2017-11-10 2017-11-14 Outpatient [place], [facility] [id number] 21:00:00 10:55:00 [place] 01 [facility] 2017-11-10 2017-11-14 Outpatient [place], [facility] [id number] 21:00:00 10:55:00 [place] 01 [facility] 2017-10-29 2017-10-29 Outpatient Egwiallan, [facility] [id number] 07:41:00 14:00:00 [place] 00 Adan Results Test Description Test Time Test Comments Results Result Comments Source HEMATOLOGY 2018-03-13 90 [facility] 23:30:00 HEMATOLOGY 2018-03-13 389 [facility] 23:30:00 CHEM PANEL 2018-03-13 48 [facility] nn 20:45:00 CHEM PANEL 2018-03-13 9.5 [facility] Susi nn 20:45:00 CHEM PANEL 2018-03-13 24 [facility] nn 20:45:00 CHEM PANEL 2018-03-13 149 [facility] Susi nn 20:45:00 CHEM PANEL 2018-03-13 113 [facility] Susi nn 20:45:00 CHEM PANEL 2018-03-13 4.3 [facility] Susi nn 20:45:00 CHEM PANEL 2018-03-13 15 [facility] Susi nn 20:45:00 CHEM PANEL 2018-03-13 1.12 [facility] Susi nn 20:45:00 CHEM PANEL 2018-03-13 87 [facility] Susi nn 20:45:00 CHEM PANEL 2018-03-13 16.3 [facility] Susi nn 20:45:00 HEMATOLOGY 2018-03-13 0.2 [facility] Susi nn 20:45:00 HEMATOLOGY 2018-03-13 0.7 [facility] Susi nn 20:45:00 HEMATOLOGY 2018-03-13 26.5 [facility] Susi nn 20:45:00 HEMATOLOGY 2018-03-13 4.4 [facility] Susi nn 20:45:00 HEMATOLOGY 2018-03-13 60.6 [facility] Susi nn 20:45:00 HEMATOLOGY 2018-03-13 1.9 [facility] Susi nn 20:45:00 HEMATOLOGY 2018-03-13 9.9 [facility] Susi nn 20:45:00 HEMATOLOGY 2018-03-13 2.5 [facility] Susi nn 20:45:00 HEMATOLOGY 2018-03-13 0.5 [facility] Susi nn 20:45:00 HEMATOLOGY 2018-03-13 145 [facility] Susi nn 20:45:00 HEMATOLOGY 2018-03-13 18.7 [facility] Susi nn 20:45:00 HEMATOLOGY 2018-03-13 10.6 [facility] Susi nn 20:45:00 HEMATOLOGY 2018-03-13 20:45:00 Test Item Value Reference Range Interpretation Comme nts MCH (test code = MCH) 29.5 pg 27.0-31.0 [facility] ZjqitovSVPCOMUOVF7367-30-99 20:45:0032.3[facility] HermannHEMATOLOGY 2018-03-13 20:45:0091.4[facility] NeuaiviYYYFSVWPIC7782-21-36 20:45:007.3[facility] VrunvmsVJEBPLZLTT9658-04-11 20:45:004.21[facility] MadozwxLMLWMTXTSG8810-15-82 20:45:0012.4[facility] SjyspysWPEGOOXHGT1841-32-43 20:45:0038.4[facility] [place] ENNKVTYIUP1578-40-80 20:45:00See Note (03/13/18 3:45 PM)[facility] HermannHEMATOLOGY 2018-03-13 20:45:00 Test Item Value Reference Range Interpretation Comments Angle (test code = Angle) 73.0 degrees 53.0-72.0 [facility] UymygkkGJZGCFGJIT9513-13-82 20:45:00 Test Item Value Reference Range Interpretation Comments Coag Index (test code = Coag Index) 3.1 1 <=3.0 [facility] LqspnwwWUMYANJKWG0368-99-02 20:45:0011.8[facility] HermannHEMATOLOGY 2018-03-13 20:45:000.2[facility] EuogwnmTKHSKAYYNJ5879-60-44 20:45:00 Test Item Value Reference Range Interpretation Comments R-time (test code = R-time) 4.3 min 5.0-10.0 [facility] FdwcjooXMETBWVHTP7809-63-57 20:45:00 Test Item Value Reference Range Interpretation Comments K-time (test code = K-time) 1.1 min 1.0-3.0 [facility] IfxhrcbQXCISUSZZZ2676-60-52 20:45:00 Test Item Value Reference Range Interpretation Comments Max Amp (test code = Max Amp) 70.2 mm 50.0-70.0 [facility] HermannSPECIAL WBRAMFMZE6807-80-28 20:45:005.4[facility] [place] QMEGTQTUONOK3631-68-37 15:49:0012.6[facility] FqikhmvYLPXPBQLDCNU0965-53-14 15:49:0026[facility] GnvcbcsQXMSPLPQRHQM3571-66-08 15:49:008.7[facility] NKIPPZXWQOIU2389-81-78 15:49:003.6[facility] TadmkhfGYTZQOZTXIYQ7609-30-10 15:49:15897Xztupvsy FpmlsicFNEFGHVWYUQO9467-52-74 15:49:0068[facility] [place] MDQFSNGNHOGE4022-86-48 15:49:007[facility] PgjueotGGLOUNFBKJNG9832-97-17 15:49:00 0.83[facility] UbrxwaxTRLYYDPMJAUK0633-44-37 15:49:33231Jtytequj Rex WVRMRYZZAHDZ6477-43-62 15:49:82677Bvvgzxeu HermannCHEM OQVQC2524-49-19 11:16:00 2.1[facility] HermannCHEM LYBCF2522-00-79 11:16:003.2[facility] HermannELECTROLYTES 2017-11-29 11:16:0012.3[facility] FwsnnldHBZRUDPRLXSC9297-23-84 11:16:0048[facility] TwtpatwLCGCTUZVBHFH5773-18-76 11:16:34206Wdktkmql NfowbvsSNZMADPUWRKD0354-07-96 11:16:50561Twjhfjsh LzfuhyxISVXSDHUBEUW8941-66-93 11:16:001.12[facility] [place] SMEXXJKBSXCO6277-86-60 11:16:42781Dcyefcwx GbzefvdEDCDFWPFEKWF9995-59-67 11:16:003.3[facility] NivmvbcJUHJDICQTTIK6986-88-19 11:16:0011[facility] HDLDGUOCROLO4745-56-07 11:16:008.7[facility] JkepogaXKTTNEIABWMV8826-69-59 11:16:0026[facility] NrnqihpNBZDESZLGS7711-84-51 11:16:000.2[facility] KUSXYPZLHN3098-65-97 11:16:002.6[facility] KxymvghZPGYMLNJKN2443-39-63 11:16:001.4 [facility] JxftteiUPGCUMGRNM5569-25-05 11:16:0065.1[facility] HermannHEMATOLOGY 2017-11-29 11:16:001.9[facility] NkdlzhkQYTKWEIXXQ2816-14-54 11:16:000.4[facility] XhjpfmsFQVBASCXYR4395-37-33 11:16:007.9[facility] XtvtuedIZRHKGPVGW7002-04-08 11:16:0021.2[facility] TvljdvrXHGJEECYIA5731-34-12 11:16:0011.4[facility] XIOCBUEBRV9292-77-06 11:16:009.3[facility] LsiqqtjCXMCOHFJUX1777-60-30 11:16:00 Test Item Value Reference Range Interpretation Comments MCH (test code = MCH) 24.8 pg 27.0-31.0 Memorial DzqpmjpNRLPNSMKGS8479-65-44 11:16:0031.6[facility] HermannHEMATOLOGY 2017-11-29 11:16:0079.5[facility] MlgfvtsUBEGCOZNZG0360-28-48 11:16:05898Szdargae GizrrjyPWGUCRQWIC0604-14-12 11:16:0031.2[facility] UgwmhraPGDPJYCGVS6537-24-22 11:16:0020.5[facility] ThzmfdyWTIILIPKEZ5838-17-83 11:16:0012.1[facility] CAONMBLBQO7664-51-54 11:16:003.97[facility] LumsdcyGVFYOGKKVM1383-04-95 11:16:00 9.8[facility] HermannPARATHYROID RZAKBDD8161-49-69 11:16:001.17[facility] [place] PARATHYROID QSXIWTT9693-86-77 11:16:001.16[facility] CIPROFLOXACIN:SUSC:PT:ISOLATE:ORDQN:LZF6142-27-76 19:48:00Enterococcus Species [facility] HermannCHEM FQSTJ6889-69-51 08:05:002.8[facility] HermannCHEM PANEL 2017-11-28 08:05:002.2[facility] HermannCHEM JVZLG5521-53-61 08:05:0071[facility] HermannCHEM TDVAV8283-79-43 08:05:0063[facility] HermannCHEM HSHLN7907-29-59 08:05:0010[facility] HermannCHEM VKWXB4666-14-58 08:05:008.3[facility] HermannCHEM KDIDV2989-40-33 08:05:0012.5[facility] HermannCHEM JPLPV6215-50-58 08:05:000.80 [facility] HermannCHEM WXZTX0174-04-51 08:05:10817Wijycvze HermannCHEM PANEL 2017-11-28 08:05:0025[facility] HermannCHEM JFZUB4237-18-64 08:05:94328Ojsggmjn HermannCHEM OQTGU1429-43-50 08:05:003.5[facility] JorzaycJFCBEZXFQA1009-64-40 08:05:0072.9[facility] ZehmngaHMATJLLPET4298-67-28 08:05:009.0[facility] [place] QGGTTRLBRE9819-73-67 08:05:001+ *ABN*(11/28/17 3:05 AM)[facility] HermannHEMATOLOGY 2017-11-28 08:05:001.5[facility] IafliltPLGUIOTASF7290-10-85 08:05:001.7[facility] QqouazwDQQJXHLINO7272-70-74 08:05:000.2[facility] QmrwymoWWFMIPYWJW0658-34-71 08:05:000.4[facility] ExwjxjoRRQCOHPQZC4049-25-21 08:05:001.3[facility] JNVPYLYARO9055-43-92 08:05:0011.9[facility] YdklrmiSKIYLTKVJO6243-16-80 08:05:00 13.5[facility] KpiqbnnYJHSARHHIO9538-35-61 08:05:00 Test Item Value Reference Range Interpretation Comments MCH (test code = MCH) 24.7 pg 27.0-31.0 [facility] DmnxrekEGNUCIXKKU6388-88-88 08:05:0078.2[facility] HermannHEMATOLOGY 2017-11-28 08:05:0025.4[facility] FvdiluvTFITYWMQCY3137-21-20 08:05:008.0[facility] QrkffmuZWYMAGZSIY7737-68-08 08:05:009.5[facility] XywkizrMTCAYSRQXW5647-45-84 08:05:82436Poqqovet CvurliwJCCTNRNKTO2748-94-98 08:05:0020.6[facility] VCCHSQDTAN4671-52-83 08:05:003.25[facility] IvasojfXEHSBXWFIU9921-52-47 08:05:00 12.3[facility] JeiwsvpKUTRITEPMZ6893-83-64 08:05:0031.6[facility] HermannPARATHYROID LQPWRWZ6068-10-51 08:05:001.13[facility]annPARATHYROID TOOVBMP9308-15-98 08:05:001.13[facility] ClnwkmqSVRPNFBOWR5956-82-42 11:36:591.6[facility] [place] NHIGMWZFKN6948-24-58 11:36:591.0[facility] HnrpnnhTLKVFNOMXN9303-33-11 11:36:590.1 [facility] QbdojroNYAQHLVUXY4353-31-80 11:36:596.3[facility]annHEMATOLOGY 2017-11-27 11:36:5983.3[facility] FpcogsqRWFUHBPKEV5472-82-77 11:36:5913.8[facility] FkdiytjRJOFNFFJAX1248-25-77 11:36:590.7[facility] UflijxjGTZJMXEWLQ1335-65-85 11:36:599.6[facility] LztehgcJALKCSSLQA8650-26-76 11:36:590.1[facility] AXMYJAIZRV9521-75-42 11:36:91964Yfmvbxic SxwdhcyYIBIYHJXKA2393-60-05 11:36:59 20.7[facility] IfvgmubZCJYRIRDJM6204-58-71 11:36:5931.5[facility]annHEMATOLOGY 2017-11-27 11:36:599.2[facility] DfoqvqgWQEMJPJYOK0894-46-31 11:36:5916.5[facility] PsgugskJMSBZDIGWH7102-38-36 11:36:59 Test Item Value Reference Range Interpretation Comments MCH (test code = MCH) 25.2 pg 27.0-31.0 [facility] FzgiljlPJOSVUVZBG8188-72-64 11:36:5979.9[facility]annHEMATOLOGY 2017-11-27 11:36:5925.0[facility] GycpaoeNOAODZALNH9694-55-57 11:36:597.9[facility] XgbvvqaTCNQXMLNZJ8423-20-28 11:36:593.13[facility] HermannCHEM YHHUG3524-45-27 09:23:020.9[facility]annURINE AND MUQHK9710-11-95 08:42:56Moderate *ABN*(11/27/17 3:42 AM)[facility] EEDFV8769-45-37 08:42:560.2 [facility] GLVPR6976-67-08 08:42:56Large *ABN*(11/27/17 3:42 AM) [facility] FEVMP5909-05-84 08:42:56Negative (11/27/17 3:42 AM) [facility] [id number] 08:42:56Negative *NA*(11/27/17 3:42 AM) [facility] EKLIO7096-27-44 08:42:56Negative *NA*(11/27/17 3:42 AM) [facility] QMGSA7533-37-22 08:42:56Negative (11/27/17 3:42 AM) [facility] ERHDP6569-90-30 08:42:56 Test Item Value Reference Range Interpretation Comments UA Spec Grav (test code = UA Spec 1.020 1 Grav) [facility] THYQR2070-61-98 08:42:56Cloudy *ABN*(11/27/17 3:42 AM) [facility] LQTIQ6433-43-54 08:42:56Yellow *NA*(11/27/17 3:42 AM) [facility] PTDLD7694-76-16 08:42:56 Test Item Value Reference Range Interpretation Comments UA pH (test code = UA pH) 7.5 1 5.0-8.0 [facility]CARDIAC USHUVDO3444-46-90 07:25:00<0.02[facility]CHEM IMPDN8430-34-56 07:25:0071[facility]CHE[facility] GUYKY5599-94-13 07:25:000.1 [facility] CRJFV0390-26-32 07:25:000.2[facility] PANEL 2017-11-27 07:25:000.1[facility] RIEPZ5851-91-82 07:25:0066[facility]CHE[facility] NCGMD9685-05-73 07:25:0012[facility]annCHE[facility] QFFUE9617-32-79 07:25:0019[facility] GKFPW3195-09-27 07:25:006.1[facility]annCHE[facility] PAXEO9249-97-51 07:25:002.0[facility]annCHEM HIGTS9424-30-74 07:25:00 Test Item Value Reference Range Interpretation Comments A/G Ratio (test code = A/G Ratio) 0.5 1 0.7-1.6 [facility] VKBLS3568-42-12 07:25:004.1[facility]annHEMATOLOGY 2017-11-27 07:25:001+ *ABN*(11/27/17 2:25 AM)[facility] UvluyklIUWLRRRIIM5780-02-59 07:25:000.1[facility] WjfufyxRQPJPBRMFN8170-72-80 07:25:00 Test Item Value Reference Range Interpretation Comments PTT (test code = PTT) 25.8 s 22.9-35.8 [facility] IvlkbgpDSGUJHAIQT9789-40-41 07:25:00 Test Item Value Reference Range Interpretation Comments INR (test code = INR) 1.17 1 0.85-1.17 [facility] FdxvodlYHYIBZCAOK0539-16-51 07:25:00 Test Item Value Reference Range Interpretation Comments PT (test code = PT) 15.0 s 12.0-14.7 [facility] FXVXC4082-87-12 09:40:0062[facility]CHE[facility] PANEL 2017-11-14 09:40:91016Enegbwzk HermannCHEM ALEJA5129-93-92 09:40:003.2[facility]annCHE[facility] TCOUV0659-10-31 09:40:0030[facility]CHE[facility] BNUMY9465-26-06 09:40:008.2[facility]annCHE[facility] MQSTA9956-99-94 09:40:01827Dcbsmupw HermannCHEM WYJFV5677-76-77 09:40:000.90[facility]annCHE[facility] IGACD7489-25-83 09:40:0011 [facility] OHXQI2987-35-20 09:40:0095[facility]CHE[facility] PANEL 2017-11-14 09:40:0012.2[facility] TpkzpnzDVVFHHQQBA0800-94-82 09:40:001+ *ABN*(11/14/17 3:40 AM)[facility] OzdnpcsRXLPTCXLBE3248-05-96 09:40:000.9[facility] KxyxbckXQWOABCEVD1775-82-21 09:40:000.1[facility] UwvuncwUEXLBCTQXQ6776-82-08 09:40:002.5[facility] MaesldlVKAZFQSLXV9617-46-40 09:40:007.5[facility] IUVTSVWWDQ8595-25-71 09:40:000.6[facility] SeytizbPESYEPTRXE5789-29-28 09:40:008.4 [facility] RphlyfqTFBYOSDATT6383-10-92 09:40:000.2[facility]annHEMATOLOGY 2017-11-14 09:40:0068.4[facility] PjhspwmXUSPUYMJLB5328-42-05 09:40:0022.4[facility] RfivvcvUAEQTZKSUS3176-70-34 09:40:0080.6[facility] OblckybHJOAAMEDAZ1171-82-40 09:40:0027.6[facility] KxoruelULQTEWGVKM4567-04-99 09:40:008.9[facility] [place] HONATYXTMQ8705-63-47 09:40:003.43[facility] AigbeygDHQXHCNUAA5759-48-32 09:40:00 11.0[facility] BebolbvYQKKISOBKF2900-92-85 09:40:73335Bmjanjtg HermannHEMATOLOGY 2017-11-14 09:40:009.0[facility] SqygmmcCZKDDKDEOG6038-96-94 09:40:00 Test Item Value Reference Range Interpretation Comments MCH (test code = MCH) 25.8 pg 27.0-31.0 [facility] VjjglahKPOUWVEGCL7334-25-86 09:40:0021.1[facility]annHEMATOLOGY 2017-11-14 09:40:0032.1[facility]annCHEM OQHKK0443-06-50 09:33:0061[facility]annCHEM CHBIY5906-91-25 09:33:003.4[facility]annCHEM PECWU0329-10-71 09:33:82697Izrxbwku HermannCHEM PPQTR3370-14-18 09:33:50827Lqdaxmrf HermannCHEM XSRJU1113-02-67 09:33:008.3[facility]annCHE[facility] FPTNI2565-86-21 09:33:0012.4 [facility]CHE[facility] XLDBC5776-62-59 09:33:0029[facility]annCHEM PANEL 2017-11-13 09:33:000.91[facility]annCHEM RZMGP7023-46-85 09:33:0014[facility]annCHEM QQVOJ2973-88-14 09:33:01811Cwgpocmm AjevpmnBHLCFZCMOR1413-28-50 09:33:001+ *ABN*(11/13/17 3:33 AM)[facility] XvskeinKREOKLIBJY8338-07-47 09:33:000.1 [facility] LwwfbzcCHBVIRHQYJ3732-14-81 09:33:0075.0[facility]annHEMATOLOGY 2017-11-13 09:33:002.1[facility] GfolyttPXZERCSCJG9784-73-05 09:33:0010.1[facility] WbzrsymXIGSMQAMLE7442-19-07 09:33:001.3[facility] MdutvegBWPBQHYUWO7828-05-40 09:33:009.3[facility] AfpzyczSFQGGFLWGF0982-78-48 09:33:0015.6[facility] AFWRDIASYI3598-26-41 09:33:0081.2[facility] GbxmmmuPQJQHMMFXD3824-67-63 09:33:00 31.5[facility] DjauliiQCGZAYYPFA9099-26-29 09:33:00 Test Item Value Reference Range Interpretation Comments MCH (test code = MCH) 25.6 pg 27.0-31.0 [facility] TycqmonSZCDRZPTCI8651-91-40 09:33:008.0[facility]annHEMATOLOGY 2017-11-13 09:33:0025.4[facility] ZzbeirsDJFEJZDXMI6479-84-38 09:33:003.13[facility] JiqceqwWHMOXWYZJR6479-59-70 09:33:0013.5[facility] NwrzkslUQNZQNDUGZ1822-76-99 09:33:42595Hvdxtkdl KzanfafSWIPQAOSVB2973-37-37 09:33:009.1[facility] [place] MXFEGTRGTR1327-18-23 09:33:0021.5[facility] XylywfwVZACHTPWCSET8538-27-45 12:21:00 14.3[facility] ZqdreglVNCPWOGWNNSZ3634-63-28 12:21:0049[facility] [place] MBORENQTYLGH1716-89-56 12:21:13347Yqmkrebt NbfcjjaSRMZHFLDSHCP0702-37-71 12:21:009.0[facility] PonghauBYOIHCQICZVO6351-20-54 12:21:37198Zydxgwav [place] OCIEBRCMNPTV5616-78-34 12:21:0025[facility] PvmdjiaJPSGZRONELQZ9248-16-16 12:21:00 140[facility] XqzidzjLDTCIDFTJSUT6762-73-99 12:21:004.3[facility] ISVFRKGZVPDO2068-07-90 12:21:0014[facility] CnywpyvSBQTMQSISGNR4761-85-36 12:21:00 1.09[facility] DmxfkpqYGMZTXJCHL2251-65-14 12:21:00 Test Item Value Reference Range Interpretation Comments MCH (test code = MCH) 25.5 pg 27.0-31.0 [facility] SbldhqdNNTTHAFPOI4652-23-77 12:21:0082.0[facility]annHEMATOLOGY 2017-11-12 12:21:0021.6[facility] MgcsyxpYJDSOCTZNI8952-20-47 12:21:0031.2[facility] AhvtsqqRPGIUIDJPK8779-49-70 12:21:003.66[facility] IzlmrlwZQGQENQQUO1980-83-07 12:21:0030.0[facility] NazibnsIHQKPJPRKZ1235-35-75 12:21:009.4[facility] MSDNYXCGDK2894-29-14 12:21:0019.6[facility] IeowbpwITPMBTWAIA9306-94-44 12:21:00 9.7[facility] JcfmxzcTYXYJPEABG3784-37-16 12:21:53650Rrcpgujk HermannHEMATOLOGY 2017-11-12 12:21:00Normal (11/12/17 6:21 AM)[facility] VkjgmnaZVAWZSXLPB2901-94-26 12:21:0092.7[facility] SuazaweEHQEBMZJXH2668-60-30 12:21:000.2[facility] VXOCBEPSLL7394-90-69 12:21:001+ *ABN*(11/12/17 6:21 AM)[facility] 2017-11-12 12:21:001.2[facility] XmfqrbwRHXTWHARQC1551-78-62 12:21:001.1[facility] LavrmwcSJIINXRIMQ9866-56-01 12:21:000.1[facility] ZxqlzevFHSOKWJMET7097-57-55 12:21:0018.2[facility] JsrojrtSNPXONADPP6361-05-12 12:21:006.1[facility] TUMOR RGRJDTK0046-68-52 12:21:001.8[facility] HermannTUMOR TAKSABM2300-99-64 12:21:000.5[facility] HermannTUMOR CTGSXGS3945-58-99 12:21:008.1[facility] CHEM DAZWJ7232-36-77 11:26:001.2[facility]annCHEM GQQVB2018-39-63 05:45:002.4 [facility] PHSTR8862-16-13 04:50:00None Seen (11/10/17 10:50 PM) [facility] LXMXR7335-06-21 04:50:00Moderate *ABN*(11/10/17 10:50 PM)[facility] YMNEZ6506-63-48 04:50:00Negative (11/10/17 10:50 PM) [facility] EQXVB9057-78-05 04:50:000.2[facility] BFBKC7149-07-82 04:50:00>=1.030 *ABN*(11/10/17 10:50 PM)[facility] ZNFZV8671-20-92 04:50:00Slight Cloudy (11/10/17 10:50 PM)[facility] ZEDNS3366-80-98 04:50:00Yellow *NA*(11/10/17 10:50 PM)[facility] XDCPN1353-53-71 04:50:00Negative (11/10/17 10:50 PM)[facility] JXSGM6809-50-11 04:50:00 Test Item Value Reference Range Interpretation Comments UA pH (test code = UA pH) 5.5 1 5.0-8.0 [facility] LCEHF9715-77-67 04:50:00Moderate *ABN*(11/10/17 10:50 PM)[facility] OVNWX1809-84-57 04:50:00Negative *NA*(11/10/17 10:50 PM)[facility] CCAGG3522-11-30 04:50:00Trace *ABN*(11/10/17 10:50 PM)[facility]CHE[facility] KJPKN5392-08-58 04:31:292.3[facility]annHEMATOLOGY 2017-11-11 04:31:29 Test Item Value Reference Range Interpretation Comments PT (test code = PT) 15.2 s 12.0-14.7 [facility] AjhtvxnCZDNCMQOES4379-62-81 04:31:29 Test Item Value Reference Range Interpretation Comments INR (test code = INR) 1.19 1 0.85-1.17 [facility] UwmecijOJLKSXKHCX8750-26-07 04:31:29 Test Item Value Reference Range Interpretation Comments PTT (test code = PTT) 28.5 s 22.9-35.8 [facility]LPSWMLYOZZ9805-63-02 04:31:290.1[facility]annHEMATOLOGY 2017-11-11 04:31:290.1[facility]annCALCIUM, CDXGZCE6348-88-34 06:28:00 Test Item Value Reference Range Interpretation Comments CALCIUM IONIZED (BEAKER) (test 1.10 mmol/L 1.12-1.27 L code = 698) PH, BLOOD (BEAKER) (test code = 7.34 1810) GTIQFBIKBH7011-80-63 05:52:00 Test Item Value Reference Range Interpretation Comments PHOSPHORUS (BEAKER) (test code = 3.5 mg/dL 2.3-4.7 604) XLWKKRWVX6033-54-93 05:52:00 Test Item Value Reference Range Interpretation Comments MAGNESIUM (BEAKER) (test code = 2.0 mg/dL 1.6-2.6 627) BASIC METABOLIC [id number] 05:52:00 Test Item Value Reference Range Interpretation Comments SODIUM (BEAKER) 143 meq/L 136-145 (test code = 381) POTASSIUM (BEAKER) 3.8 meq/L 3.5-5.1 (test code = 379) CHLORIDE (BEAKER) 109 meq/L 98-107 H (test code = 382) CO2 (BEAKER) (test 29 meq/L 22-29 code = 355) BLOOD UREA NITROGEN 22 mg/dL 7-21 H (BEAKER) (test code = 354) CREATININE (BEAKER) 0.96 mg/dL 0.57-1.25 (test code = 358) GLUCOSE RANDOM 104 mg/dL 70-105 (BEAKER) (test code = 652) CALCIUM (BEAKER) 8.5 mg/dL 8.4-10.2 (test code = 697) EGFR (BEAKER) (test 56 mL/min/1.73 ESTIMA MARIAN GFR IS code = 1092) sq m NOT ACCURATE CREATININE CLEARANCE IN PREDICTING GLOMERULAR FILTRATION RATE . ESTIMATED GFR I S NOT APPLICABLE FOR DIALYSIS PATIEN TS. CBC W/PLT COUNT & AUTO [id number] 05:28:00 Test Item Value Reference Range Interpretation Comments WHITE BLOOD CELL COUNT (BEAKER) 10.4 K/ L 3.5-10.5 (test code = 775) RED BLOOD CELL COUNT (BEAKER) 2.75 M/ L 3.93-5.22 L (test code = 761) HEMOGLOBIN (BEAKER) (test code = 8.3 GM/DL 11.2-15.7 L 410) HEMATOCRIT (BEAKER) (test code = 26.2 % 34.1-44.9 L 411) MEAN CORPUSCULAR VOLUME (BEAKER) 95.3 fL 79.4-94.8 H (test code = 753) MEAN CORPUSCULAR HEMOGLOBIN 30.2 pg 25.6-32.2 (BEAKER) (test code = 751) MEAN CORPUSCULAR HEMOGLOBIN CONC 31.7 GM/DL 32.2-35.5 L (BEAKER) (test code = 752) RED CELL DISTRIBUTION WIDTH 15.6 % 11.7-14.4 H (BEAKER) (test code = 412) PLATELET COUNT (BEAKER) (test 213 K/CU MM 150-450 code = 756) MEAN PLATELET VOLUME (BEAKER) 11.4 fL 9.4-12.3 (test code = 754) NUCLEATED RED BLOOD CELLS 0 /100 WBC 0-0 (BEAKER) (test code = 413) NEUTROPHILS RELATIVE PERCENT 59 % (BEAKER) (test code = 429) LYMPHOCYTES RELATIVE PERCENT 22 % (BEAKER) (test code = 430) MONOCYTES RELATIVE PERCENT 12 % (BEAKER) (test code = 431) EOSINOPHILS RELATIVE PERCENT 5 % (BEAKER) (test code = 432) BASOPHILS RELATIVE PERCENT 1 % (BEAKER) (test code = 437) NEUTROPHILS ABSOLUTE COUNT 6.17 K/ L 1.56-6.13 H (BEAKER) (test code = 670) LYMPHOCYTES ABSOLUTE COUNT 2.26 K/ L 1.18-3.74 (BEAKER) (test code = 414) MONOCYTES ABSOLUTE COUNT (BEAKER) 1.26 K/ L 0.24-0.36 H (test code = 415) EOSINOPHILS ABSOLUTE COUNT 0.52 K/ L 0.04-0.36 H (BEAKER) (test code = 416) BASOPHILS ABSOLUTE COUNT (BEAKER) 0.05 K/ L 0.01-0.08 (test code = 417) IMMATURE GRANULOCYTES-RELATIVE 1 % 0-1 PERCENT (BEAKER) (test code = 2801) CALCIUM, [id number] 06:34:00 Test Item Value Reference Range Interpretation Comments CALCIUM IONIZED (BEAKER) (test 1.11 mmol/L 1.12-1.27 L code = 698) PH, BLOOD (BEAKER) (test code = 7.41 1810) [id number] 05:05:00 Test Item Value Reference Range Interpretation Comments PHOSPHORUS (BEAKER) (test code = 2.9 mg/dL 2.3-4.7 604) [id number] 05:05:00 Test Item Value Reference Range Interpretation Comments MAGNESIUM (BEAKER) (test code = 1.9 mg/dL 1.6-2.6 627) BASIC METABOLIC [id number] 05:05:00 Test Item Value Reference Range Interpretation Comments SODIUM (BEAKER) 142 meq/L 136-145 (test code = 381) POTASSIUM (BEAKER) 4.0 meq/L 3.5-5.1 (test code = 379) CHLORIDE (BEAKER) 107 meq/L 98-107 (test code = 382) CO2 (BEAKER) (test 30 meq/L 22-29 H code = 355) BLOOD UREA NITROGEN 19 mg/dL 7-21 (BEAKER) (test code = 354) CREATININE (BEAKER) 0.83 mg/dL 0.57-1.25 (test code = 358) GLUCOSE RANDOM 110 mg/dL 70-105 H (BEAKER) (test code = 652) CALCIUM (BEAKER) 8.5 mg/dL 8.4-10.2 (test code = 697) EGFR (BEAKER) (test 67 mL/min/1.73 ESTIMA MARIAN GFR IS code = 1092) sq m NOT ACCURATE CREATININE CLEARANCE IN PREDICTING GLOMERULAR FILTRATION RATE . ESTIMATED GFR I S NOT APPLICABLE FOR DIALYSIS PATIEN TS. CBC W/PLT COUNT & AUTO [id number] 04:46:00 Test Item Value Reference Range Interpretation Comments WHITE BLOOD CELL COUNT (BEAKER) 9.6 K/ L 3.5-10.5 (test code = 775) RED BLOOD CELL COUNT (BEAKER) 2.90 M/ L 3.93-5.22 L (test code = 761) HEMOGLOBIN (BEAKER) (test code = 8.6 GM/DL 11.2-15.7 L 410) HEMATOCRIT (BEAKER) (test code = 26.9 % 34.1-44.9 L 411) MEAN CORPUSCULAR VOLUME (BEAKER) 92.8 fL 79.4-94.8 (test code = 753) MEAN CORPUSCULAR HEMOGLOBIN 29.7 pg 25.6-32.2 (BEAKER) (test code = 751) MEAN CORPUSCULAR HEMOGLOBIN CONC 32.0 GM/DL 32.2-35.5 L (BEAKER) (test code = 752) RED CELL DISTRIBUTION WIDTH 16.0 % 11.7-14.4 H (BEAKER) (test code = 412) PLATELET COUNT (BEAKER) (test 181 K/CU MM 150-450 code = 756) MEAN PLATELET VOLUME (BEAKER) 11.4 fL 9.4-12.3 (test code = 754) NUCLEATED RED BLOOD CELLS 0 /100 WBC 0-0 (BEAKER) (test code = 413) NEUTROPHILS RELATIVE PERCENT 69 % (BEAKER) (test code = 429) LYMPHOCYTES RELATIVE PERCENT 14 % (BEAKER) (test code = 430) MONOCYTES RELATIVE PERCENT 12 % (BEAKER) (test code = 431) EOSINOPHILS RELATIVE PERCENT 5 % (BEAKER) (test code = 432) BASOPHILS RELATIVE PERCENT 0 % (BEAKER) (test code = 437) NEUTROPHILS ABSOLUTE COUNT 6.59 K/ L 1.56-6.13 H (BEAKER) (test code = 670) LYMPHOCYTES ABSOLUTE COUNT 1.34 K/ L 1.18-3.74 (BEAKER) (test code = 414) MONOCYTES ABSOLUTE COUNT (BEAKER) 1.11 K/ L 0.24-0.36 H (test code = 415) EOSINOPHILS ABSOLUTE COUNT 0.46 K/ L 0.04-0.36 H (BEAKER) (test code = 416) BASOPHILS ABSOLUTE COUNT (BEAKER) 0.03 K/ L 0.01-0.08 (test code = 417) IMMATURE GRANULOCYTES-RELATIVE 1 % 0-1 PERCENT (BEAKER) (test code = 2801) RAD, CHEST, 1 VIEW, NON [id number] 09:05:00Reason for exam:->s/p surgery/intubation/CTShould this be performed at the bedside?->YesFINAL REPORT Chest one view compared to May 25, 2017 Discussion: Right chest tube is removed. Left-sided drainage tubes remain. Ill- defined opacities both lung bases are similar. There may be a small right effusion. No pneumothorax. Signed: Franco Wilkinson Verified Date/Time: 05/26/2017 09:05:29 Reading Location: [facility] Radiology Reading Room POCT-GLUCOSE [id number] 07:34:00 Test Item Value Reference Range Interpretation Comments POC-GLUCOSE METER 146 mg/dL 70-110 H TEST[facility] AT [place] [address] [facility] (test code = [facility] 1538) [id number] POCT-GLUCOSE [id number] 07:34:00 Test Item Value Reference Range Interpretation Comments POC-GLUCOSE METER 130 mg/dL 70-110 H TESTED AT [place] [address] [facility] (test code = [facility] 1538) [address] VITAMIN B12 AND [id number] 07:15:00 Test Item Value Reference Range Interpretation Comments VITAMIN B12 (BEAKER) (test code = 1074 pg/mL 213-816 H 774) FOLATE (BEAKER) (test code = 362) 10.9 ng/mL >=7.0 [id number] 06:44:00 Test Item Value Reference Range Interpretation Comments MAGNESIUM (BEAKER) (test code = 2.4 mg/dL 1.6-2.6 627) BASIC METABOLIC [id number] 06:44:00 Test Item Value Reference Range Interpretation Comments SODIUM (BEAKER) 139 meq/L 136-145 (test code = 381) POTASSIUM (BEAKER) 3.8 meq/L 3.5-5.1 (test code = 379) CHLORIDE (BEAKER) 106 meq/L 98-107 (test code = 382) CO2 (BEAKER) (test 27 meq/L 22-29 code = 355) BLOOD UREA NITROGEN 14 mg/dL 7-21 (BEAKER) (test code = 354) CREATININE (BEAKER) 0.85 mg/dL 0.57-1.25 (test code = 358) GLUCOSE RANDOM 115 mg/dL 70-105 H (BEAKER) (test code = 652) CALCIUM (BEAKER) 8.1 mg/dL 8.4-10.2 L (test code = 697) EGFR (BEAKER) (test 65 mL/min/1.73 ESTIMA MARIAN GFR IS code = 1092) sq m NOT ACCURATE CREATININE CLEARANCE IN PREDICTING GLOMERULAR FILTRATION RATE . ESTIMATED GFR I S NOT APPLICABLE FOR DIALYSIS PATIEN TS. CBC W/PLT COUNT & AUTO [id number] 06:15:00 Test Item Value Reference Range Interpretation Comments WHITE BLOOD CELL COUNT (BEAKER) 12.5 K/ L 3.5-10.5 H (test code = 775) RED BLOOD CELL COUNT (BEAKER) 3.12 M/ L 3.93-5.22 L (test code = 761) HEMOGLOBIN (BEAKER) (test code = 9.2 GM/DL 11.2-15.7 L 410) HEMATOCRIT (BEAKER) (test code = 29.0 % 34.1-44.9 L 411) MEAN CORPUSCULAR VOLUME (BEAKER) 92.9 fL 79.4-94.8 (test code = 753) MEAN CORPUSCULAR HEMOGLOBIN 29.5 pg 25.6-32.2 (BEAKER) (test code = 751) MEAN CORPUSCULAR HEMOGLOBIN CONC 31.7 GM/DL 32.2-35.5 L (BEAKER) (test code = 752) RED CELL DISTRIBUTION WIDTH 16.5 % 11.7-14.4 H (BEAKER) (test code = 412) PLATELET COUNT (BEAKER) (test 143 K/CU MM 150-450 L code = 756) MEAN PLATELET VOLUME (BEAKER) 11.5 fL 9.4-12.3 (test code = 754) NUCLEATED RED BLOOD CELLS 0 /100 WBC 0-0 (BEAKER) (test code = 413) NEUTROPHILS RELATIVE PERCENT 81 % (BEAKER) (test code = 429) LYMPHOCYTES RELATIVE PERCENT 7 % (BEAKER) (test code = 430) MONOCYTES RELATIVE PERCENT 9 % (BEAKER) (test code = 431) EOSINOPHILS RELATIVE PERCENT 2 % (BEAKER) (test code = 432) BASOPHILS RELATIVE PERCENT 0 % (BEAKER) (test code = 437) NEUTROPHILS ABSOLUTE COUNT 10.13 K/ L 1.56-6.13 H (BEAKER) (test code = 670) LYMPHOCYTES ABSOLUTE COUNT 0.87 K/ L 1.18-3.74 L (BEAKER) (test code = 414) MONOCYTES ABSOLUTE COUNT (BEAKER) 1.15 K/ L 0.24-0.36 H (test code = 415) EOSINOPHILS ABSOLUTE COUNT 0.25 K/ L 0.04-0.36 (BEAKER) (test code = 416) BASOPHILS ABSOLUTE COUNT (BEAKER) 0.04 K/ L 0.01-0.08 (test code = 417) IMMATURE GRANULOCYTES-RELATIVE 1 % 0-1 PERCENT (BEAKER) (test code = 2801) CALCIUM, [id number] 06:10:00 Test Item Value Reference Range Interpretation Comments CALCIUM IONIZED (BEAKER) (test 1.07 mmol/L 1.12-1.27 L code = 698) PH, BLOOD (BEAKER) (test code = 7.34 1810) [id number] 17:12:00 Test Item Value Reference Range Interpretation Comments POTASSIUM (BEAKER) (test code = 3.7 meq/L 3.5-5.1 379) [id number] 17:12:00 Test Item Value Reference Range Interpretation Comments MAGNESIUM (BEAKER) (test code = 1.9 mg/dL 1.6-2.6 627) RAD, CHEST, 1 VIEW, NON [id number] 09:40:00Reason for exam:->s/p surgery/intubation/CTShould this be performed at the bedside?->YesFINAL REPORT [...] MDReport Verified Date/Time: 05/25/2017 09:40:39 Reading Location: [address] Neuro ReadingRoom CHIAL CULTURE + GRAM [id number] 09:36:00 Test Item Value Reference Range Interpretation Comments CULTURE (BEAKER) <1+ Normal respiratory (test code = 1095) eugenio present GRAM STAIN RESULT 1+ WBCs (BEAKER) (test code = 1123) GRAM STAIN RESULT No organisms seen (BEAKER) (test code = 43351) SPUTUM CULTURE + GRAM [id number] 09:18:00 Test Item Value Reference Range Interpretation Comments CULTURE (BEAKER) 2+ Normal respiratory (test code = 1095) eugenio present GRAM STAIN RESULT 3+ WBCs (BEAKER) (test code = 1123) GRAM STAIN RESULT 0-5 epithelial cells (BEAKER) (test code = 96967) GRAM STAIN RESULT <1+ gram positive cocci (BEAKER) (test code = in pairs 18476) CALCIUM, [id number] 04:00:00 Test Item Value Reference Range Interpretation Comments CALCIUM IONIZED (BEAKER) (test 1.10 mmol/L 1.12-1.27 L code = 698) PH, BLOOD (BEAKER) (test code = 7.36 1810) OXYGEN SATURATION, [id number] 03:59:00 Test Item Value Reference Range Interpretation Comments O2 SATURATION (MEASURED) (BEAKER) 67.2 % (test code = 1455) BASIC METABOLIC [id number] 03:53:00 Test Item Value Reference Range Interpretation Comments SODIUM (BEAKER) 139 meq/L 136-145 (test code = 381) POTASSIUM (BEAKER) 4.0 meq/L 3.5-5.1 (test code = 379) CHLORIDE (BEAKER) 111 meq/L 98-107 H (test code = 382) CO2 (BEAKER) (test 23 meq/L 22-29 code = 355) BLOOD UREA NITROGEN 15 mg/dL 7-21 (BEAKER) (test code = 354) CREATININE (BEAKER) 0.81 mg/dL 0.57-1.25 (test code = 358) GLUCOSE RANDOM 114 mg/dL 70-105 H (BEAKER) (test code = 652) CALCIUM (BEAKER) 7.7 mg/dL 8.4-10.2 L (test code = 697) EGFR (BEAKER) (test 69 mL/min/1.73 ESTIMA MARIAN GFR IS code = 1092) sq m NOT ACCURATE CREATININE CLEARANCE IN PREDICTING GLOMERULAR FILTRATION RATE . ESTIMATED GFR I S NOT APPLICABLE FOR DIALYSIS PATIEN TS. [id number] 03:51:00 Test Item Value Reference Range Interpretation Comments PHOSPHORUS (BEAKER) (test code = 2.7 mg/dL 2.3-4.7 604) [id number] 03:51:00 Test Item Value Reference Range Interpretation Comments MAGNESIUM (BEAKER) (test code = 2.1 mg/dL 1.6-2.6 627) CBC W/PLT COUNT & AUTO [id number] 03:33:00 Test Item Value Reference Range Interpretation Comments WHITE BLOOD CELL COUNT (BEAKER) 10.3 K/ L 3.5-10.5 (test code = 775) RED BLOOD CELL COUNT (BEAKER) 2.67 M/ L 3.93-5.22 L (test code = 761) HEMOGLOBIN (BEAKER) (test code = 8.0 GM/DL 11.2-15.7 L 410) HEMATOCRIT (BEAKER) (test code = 24.2 % 34.1-44.9 L 411) MEAN CORPUSCULAR VOLUME (BEAKER) 90.6 fL 79.4-94.8 (test code = 753) MEAN CORPUSCULAR HEMOGLOBIN 30.0 pg 25.6-32.2 (BEAKER) (test code = 751) MEAN CORPUSCULAR HEMOGLOBIN CONC 33.1 GM/DL 32.2-35.5 (BEAKER) (test code = 752) RED CELL DISTRIBUTION WIDTH 17.1 % 11.7-14.4 H (BEAKER) (test code = 412) PLATELET COUNT (BEAKER) (test 112 K/CU MM 150-450 L code = 756) MEAN PLATELET VOLUME (BEAKER) 11.0 fL 9.4-12.3 (test code = 754) NUCLEATED RED BLOOD CELLS 0 /100 WBC 0-0 (BEAKER) (test code = 413) NEUTROPHILS RELATIVE PERCENT 76 % (BEAKER) (test code = 429) LYMPHOCYTES RELATIVE PERCENT 12 % (BEAKER) (test code = 430) MONOCYTES RELATIVE PERCENT 10 % (BEAKER) (test code = 431) EOSINOPHILS RELATIVE PERCENT 2 % (BEAKER) (test code = 432) BASOPHILS RELATIVE PERCENT 0 % (BEAKER) (test code = 437) NEUTROPHILS ABSOLUTE COUNT 7.84 K/ L 1.56-6.13 H (BEAKER) (test code = 670) LYMPHOCYTES ABSOLUTE COUNT 1.25 K/ L 1.18-3.74 (BEAKER) (test code = 414) MONOCYTES ABSOLUTE COUNT (BEAKER) 1.03 K/ L 0.24-0.36 H (test code = 415) EOSINOPHILS ABSOLUTE COUNT 0.16 K/ L 0.04-0.36 (BEAKER) (test code = 416) BASOPHILS ABSOLUTE COUNT (BEAKER) 0.02 K/ L 0.01-0.08 (test code = 417) IMMATURE GRANULOCYTES-RELATIVE 0 % 0-1 PERCENT (BEAKER) (test code = 2801) RAD, CHEST, 1 VIEW, NON [id number] 07:24:00Reason for exam:->s/p surgery/intubation/CTShould this be performed at the bedside?->YesFINAL REPORT Chest, one view. HISTORY: Postop COMPARISON: 05/23/2017 IMPRESSION: Supporting hardware unchanged in position. No pneumothorax. Trace left pleural effusion. Mild interstitial edema. Unchanged enlargement of the cardiomediastinal silhouette. Mild left basilar atelectasis. Signed: Roberto Weldon Verified Date/Time: 05/24/2017 07:24:37 Reading Location: [address] Body Reading Room LACTIC ACID, ARTERIAL, WHOLE BLOOD 2017-05-24 05:44:00 Test Item Value Reference Range Interpretation Comments LACTATE BLOOD ARTERIAL (2) 1.8 mmol/L 0.5-2.2 (BEAKER) (test code = 2874) Effective 01/10/2016: Units/Reference Range ChangeNew: 0.5-2.2 mmol/L Previous: 5-20 mg/dLBASIC METABOLIC [id number] 05:42:00 Test Item Value Reference Range Interpretation Comments SODIUM (BEAKER) 142 meq/L 136-145 (test code = 381) POTASSIUM (BEAKER) 4.9 meq/L 3.5-5.1 (test code = 379) CHLORIDE (BEAKER) 116 meq/L 98-107 H (test code = 382) CO2 (BEAKER) (test 20 meq/L 22-29 L code = 355) BLOOD UREA NITROGEN 21 mg/dL 7-21 (BEAKER) (test code = 354) CREATININE (BEAKER) 1.05 mg/dL 0.57-1.25 (test code = 358) GLUCOSE RANDOM 140 mg/dL 70-105 H (BEAKER) (test code = 652) CALCIUM (BEAKER) 7.4 mg/dL 8.4-10.2 L (test code = 697) EGFR (BEAKER) (test 51 mL/min/1.73 ESTIMA MARIAN GFR IS code = 1092) sq m NOT ACCURATE CREATININE CLEARANCE IN PREDICTING GLOMERULAR FILTRATION RATE . ESTIMATED GFR I S NOT APPLICABLE FOR DIALYSIS PATIEN TS. BLOOD GAS, [id number] 05:34:00 Test Item Value Reference Range Interpretation Comments PH ARTERIAL (BEAKER) (test code = 7.33 7.35-7.45 L 383) PCO2 ARTERIAL (BEAKER) (test code 41 mmHg 35-45 = 384) PO2 ARTERIAL (BEAKER) (test code 102 mmHg 80-90 H = 385) O2 SATURATION ARTERIAL (BEAKER) 97.3 % 96.0-97.0 H (test code = 386) HCO3 ARTERIAL (BEAKER) (test code 21 mmol/L 21-29 = 388) BASE EXCESS ARTERIAL (BEAKER) -4.3 mmol/L -2.0-3.0 L (test code = 387) PATIENT TEMPERATURE (BEAKER) 37.0 C (test code = 1818) [id number] 05:28:00 Test Item Value Reference Range Interpretation Comments PHOSPHORUS (BEAKER) (test code = 4.7 mg/dL 2.3-4.7 604) [id number] 05:28:00 Test Item Value Reference Range Interpretation Comments MAGNESIUM (BEAKER) (test code = 2.3 mg/dL 1.6-2.6 627) OXYGEN SATURATION, [id number] 05:13:00 Test Item Value Reference Range Interpretation Comments O2 SATURATION (MEASURED) (BEAKER) 66.1 % (test code = 1455) CALCIUM, [id number] 05:13:00 Test Item Value Reference Range Interpretation Comments CALCIUM IONIZED (BEAKER) (test 1.08 mmol/L 1.12-1.27 L code = 698) PH, BLOOD (BEAKER) (test code = 7.29 1810) CBC W/PLT COUNT & AUTO [id number] 05:11:00 Test Item Value Reference Range Interpretation Comments WHITE BLOOD CELL COUNT (BEAKER) 9.6 K/ L 3.5-10.5 (test code = 775) RED BLOOD CELL COUNT (BEAKER) 2.92 M/ L 3.93-5.22 L (test code = 761) HEMOGLOBIN (BEAKER) (test code = 8.6 GM/DL 11.2-15.7 L 410) HEMATOCRIT (BEAKER) (test code = 26.2 % 34.1-44.9 L 411) MEAN CORPUSCULAR VOLUME (BEAKER) 89.7 fL 79.4-94.8 (test code = 753) MEAN CORPUSCULAR HEMOGLOBIN 29.5 pg 25.6-32.2 (BEAKER) (test code = 751) MEAN CORPUSCULAR HEMOGLOBIN CONC 32.8 GM/DL 32.2-35.5 (BEAKER) (test code = 752) RED CELL DISTRIBUTION WIDTH 16.3 % 11.7-14.4 H (BEAKER) (test code = 412) PLATELET COUNT (BEAKER) (test 140 K/CU MM 150-450 L code = 756) MEAN PLATELET VOLUME (BEAKER) 10.3 fL 9.4-12.3 (test code = 754) NUCLEATED RED BLOOD CELLS 0 /100 WBC 0-0 (BEAKER) (test code = 413) NEUTROPHILS RELATIVE PERCENT 78 % (BEAKER) (test code = 429) LYMPHOCYTES RELATIVE PERCENT 9 % (BEAKER) (test code = 430) MONOCYTES RELATIVE PERCENT 12 % (BEAKER) (test code = 431) EOSINOPHILS RELATIVE PERCENT 0 % (BEAKER) (test code = 432) BASOPHILS RELATIVE PERCENT 0 % (BEAKER) (test code = 437) NEUTROPHILS ABSOLUTE COUNT 7.53 K/ L 1.56-6.13 H (BEAKER) (test code = 670) LYMPHOCYTES ABSOLUTE COUNT 0.86 K/ L 1.18-3.74 L (BEAKER) (test code = 414) MONOCYTES ABSOLUTE COUNT (BEAKER) 1.14 K/ L 0.24-0.36 H (test code = 415) EOSINOPHILS ABSOLUTE COUNT 0.02 K/ L 0.04-0.36 L (BEAKER) (test code = 416) BASOPHILS ABSOLUTE COUNT (BEAKER) 0.03 K/ L 0.01-0.08 (test code = 417) IMMATURE GRANULOCYTES-RELATIVE 1 % 0-1 PERCENT (BEAKER) (test code = 2801) BLOOD GAS, [id number] 23:38:00 Test Item Value Reference Range Interpretation Comments PH ARTERIAL (BEAKER) (test code = 7.34 7.35-7.45 L 383) PCO2 ARTERIAL (BEAKER) (test code 43 mmHg 35-45 = 384) PO2 ARTERIAL (BEAKER) (test code 98 mmHg 80-90 H = 385) O2 SATURATION ARTERIAL (BEAKER) 96.6 % 96.0-97.0 (test code = 386) HCO3 ARTERIAL (BEAKER) (test code 22 mmol/L 21-29 = 388) BASE EXCESS ARTERIAL (BEAKER) -2.8 mmol/L -2.0-3.0 L (test code = 387) PATIENT TEMPERATURE (BEAKER) 38.5 C (test code = 1818) FIO2 (BEAKER) (test code = 1819) 40.0 % HEMOGLOBIN AND [id number] 23:38:00 Test Item Value Reference Range Interpretation Comments HEMOGLOBIN (BEAKER) (test code = 7.6 g/dL 12.0-15.0 L 410) HEMATOCRIT (BEAKER) (test code = 22.0 % 36.0-45.0 L 411) Done at stat lab.BLOOD GAS, [id number] 16:58:00 Test Item Value Reference Range Interpretation Comments PH ARTERIAL (BEAKER) (test code = 7.36 7.35-7.45 383) PCO2 ARTERIAL (BEAKER) (test code 38 mmHg 35-45 = 384) PO2 ARTERIAL (BEAKER) (test code 103 mmHg 80-90 H = 385) O2 SATURATION ARTERIAL (BEAKER) 97.5 % 96.0-97.0 H (test code = 386) HCO3 ARTERIAL (BEAKER) (test code 21 mmol/L 21-29 = 388) BASE EXCESS ARTERIAL (BEAKER) -4.5 mmol/L -2.0-3.0 L (test code = 387) PATIENT TEMPERATURE (BEAKER) 37.0 C (test code = 1818) FIO2 (BEAKER) (test code = 1819) 50.0 % GLUCOSE-STAT [id number] 16:58:00 Test Item Value Reference Range Interpretation Comments GLUCOSE RANDOM (BEAKER) (test code 168 mg/dL 70-110 H = 652) BLOOD GAS, [id number] 16:24:00 Test Item Value Reference Range Interpretation Comments PH ARTERIAL (BEAKER) (test code = 7.34 7.35-7.45 L 383) PCO2 ARTERIAL (BEAKER) (test code 40 mmHg 35-45 = 384) PO2 ARTERIAL (BEAKER) (test code 39 mmHg 80-90 LL = 385) O2 SATURATION ARTERIAL (BEAKER) 72.7 % 96.0-97.0 L (test code = 386) HCO3 ARTERIAL (BEAKER) (test code 21 mmol/L 21-29 = 388) BASE EXCESS ARTERIAL (BEAKER) -4.5 mmol/L -2.0-3.0 L (test code = 387) PATIENT TEMPERATURE (BEAKER) 36.4 C (test code = 1818) FIO2 (BEAKER) (test code = 1819) 40.0 % CBC W/PLT COUNT & AUTO [id number] 15:55:00 Test Item Value Reference Range Interpretation Comments WHITE BLOOD CELL COUNT 17.4 K/ L 3.5-10.5 H (BEAKER) (test code = 775) RED BLOOD CELL COUNT 2.94 M/ L 3.93-5.22 L (BEAKER) (test code = 761) HEMOGLOBIN (BEAKER) 8.8 GM/DL 11.2-15.7 L (test code = 410) HEMATOCRIT (BEAKER) 26.4 % 34.1-44.9 L (test code = 411) MEAN CORPUSCULAR 89.8 fL 79.4-94.8 Discordant result VOLUME (BEAKER) (test compar ed to previous code = 753) result; clinica l correlation required. MEAN CORPUSCULAR 29.9 pg 25.6-32.2 HEMOGLOBIN (BEAKER) (test code = 751) MEAN CORPUSCULAR 33.3 GM/DL 32.2-35.5 HEMOGLOBIN CONC (BEAKER) (test code = 752) RED CELL DISTRIBUTION 15.8 % 11.7-14.4 H WIDTH (BEAKER) (test code = 412) PLATELET COUNT 167 K/CU MM 150-450 (BEAKER) (test code = 756) MEAN PLATELET VOLUME 9.1 fL 9.4-12.3 L (BEAKER) (test code = 754) NUCLEATED RED BLOOD 0 /100 WBC 0-0 CELLS (BEAKER) (test code = 413) NEUTROPHILS RELATIVE 83 % PERCENT (BEAKER) (test code = 429) LYMPHOCYTES RELATIVE 10 % PERCENT (BEAKER) (test code = 430) MONOCYTES RELATIVE 5 % PERCENT (BEAKER) (test code = 431) EOSINOPHILS RELATIVE 0 % PERCENT (BEAKER) (test code = 432) BASOPHILS RELATIVE 0 % PERCENT (BEAKER) (test code = 437) NEUTROPHILS ABSOLUTE 14.43 K/ L 1.56-6.13 H COUNT (BEAKER) (test code = 670) LYMPHOCYTES ABSOLUTE 1.78 K/ L 1.18-3.74 COUNT (BEAKER) (test code = 414) MONOCYTES ABSOLUTE 0.91 K/ L 0.24-0.36 H COUNT (BEAKER) (test code = 415) EOSINOPHILS ABSOLUTE 0.05 K/ L 0.04-0.36 COUNT (BEAKER) (test code = 416) BASOPHILS ABSOLUTE 0.03 K/ L 0.01-0.08 COUNT (BEAKER) (test code = 417) IMMATURE 1 % 0-1 GRANULOCYTES-RELATIVE PERCENT (BEAKER) (test code = 2801) RAD, CHEST, 1 VIEW, NON [id number] 15:35:00Reason for exam:->immediate post cardiothoracic surgery/intubationShould this be performed at the bedside?->YesFINAL REPORT Chest one view compared to May 22, 2017 Discussion: Sternal wires, multiple drainage tubes, patchy basilar atelectasis are noted. Upper lungs are unremarkable.No effusion or pneumothorax. ET tube, NG tube, right IJ line in apparent good position. IMPRESSIONS:Postoperative chest with bilateral atelectasis. Signed: Franco Wilkinson Verified Date/Time: 05/23/2017 15:35:23 Reading Location: [address] Consult Reading Room THROMBOELASTOGRAPH (TEG)2017-05-23 15:00:00 Test Item Value Reference Range Interpretation Comments TEG ACTIVATED CLOTTING TIME 5.6 minutes 4.0-7.0 (BEAKER) (test code = 1407) TEG FIBRINOGEN ACTIVITY (BEAKER) 70.5 degrees 61.0-73.0 (test code = 1408) TEG PLT. AGGREGATION (BEAKER) 46.6 MM 55.0-65.0 L (test code = 1409) TEG FIBRINOLYSIS (BEAKER) (test 22.6 % 0.0-5.0 H code = 1410) TGH ACTIVATED CLOTTING TIME 6.2 minutes 4.0-7.0 (BEAKER) (test code = 1411) TGH FIBRINOGEN ACTIVITY (BEAKER) 72.7 degrees 61.0-73.0 (test code = 1412) TGH PLT. AGGREGATION (BEAKER) 63.0 MM 55.0-65.0 (test code = 1413) TGH FIBRINOLYSIS (BEAKER) (test 0.0 % 0.0-5.0 code = 1414) BASIC METABOLIC [id number] 14:05:00 Test Item Value Reference Range Interpretation Comments SODIUM (BEAKER) 142 meq/L 136-145 (test code = 381) POTASSIUM (BEAKER) 4.4 meq/L 3.5-5.1 Specimen slightly (test code = 379) hemolyzed CHLORIDE (BEAKER) 114 meq/L 98-107 H (test code = 382) CO2 (BEAKER) (test 21 meq/L 22-29 L code = 355) BLOOD UREA NITROGEN 19 mg/dL 7-21 (BEAKER) (test code = 354) CREATININE (BEAKER) 0.86 mg/dL 0.57-1.25 Specimen slightly (test code = 358) hemolyzed GLUCOSE RANDOM 107 mg/dL 70-105 H (BEAKER) (test code = 652) CALCIUM (BEAKER) 8.4 mg/dL 8.4-10.2 (test code = 697) EGFR (BEAKER) (test 64 mL/min/1.73 ESTIMA MARIAN GFR IS code = 1092) sq m NOT ACCURATE CREATININE CLEARANCE IN PREDICTING GLOMERULAR FILTRATION RATE . ESTIMATED GFR I S NOT APPLICABLE FOR DIALYSIS PATIEN TS. LACTIC ACID, ARTERIAL, WHOLE [id number] 14:01:00 Test Item Value Reference Range Interpretation Comments LACTATE BLOOD 2.1 mmol/L 0.5-2.2 Specimen sligh tly ARTERIAL (2) (BEAKER) hemoly zed (test code = 2874) Effective 01/10/2016: Units/Reference Range ChangeNew: 0.5-2.2 mmol/L Previous: 5-20 mg/dLGLUCOSE-STAT [id number] 13:42:00 Test Item Value Reference Range Interpretation Comments GLUCOSE RANDOM (BEAKER) (test code 105 mg/dL 70-110 = 652) SODIUM NA-STAT [id number] 13:42:00 Test Item Value Reference Range Interpretation Comments SODIUM (BEAKER) (test code = 381) 137 meq/L 135-148 POTASSIUM-STAT [id number] 13:42:00 Test Item Value Reference Range Interpretation Comments POTASSIUM (BEAKER) (test code = 4.2 meq/L 3.6-5.5 379) BLOOD GAS, [id number] 13:42:00 Test Item Value Reference Range Interpretation Comments PH ARTERIAL (BEAKER) (test code = 7.41 7.35-7.45 383) PCO2 ARTERIAL (BEAKER) (test code 33 mmHg 35-45 L = 384) PO2 ARTERIAL (BEAKER) (test code 53 mmHg 80-90 L = 385) O2 SATURATION ARTERIAL (BEAKER) 91.8 % 96.0-97.0 L (test code = 386) HCO3 ARTERIAL (BEAKER) (test code 21 mmol/L 21-29 = 388) BASE EXCESS ARTERIAL (BEAKER) -3.7 mmol/L -2.0-3.0 L (test code = 387) PATIENT TEMPERATURE (BEAKER) 34.4 C (test code = 1818) FIO2 (BEAKER) (test code = 1819) 60.0 % HGB/HCT (H&H) - STAT [id number] 13:42:00 Test Item Value Reference Range Interpretation Comments HEMOGLOBIN (BEAKER) (test code = 9.1 g/dL 12.0-15.0 L 410) HEMATOCRIT (BEAKER) (test code = 27.0 % 36.0-45.0 L 411) CALCIUM, [id number] 13:42:00 Test Item Value Reference Range Interpretation Comments CALCIUM IONIZED ([facility]) (test 1.17 mmol/L 1.12-1.27 code = 698) PH, BLOOD ([facility]) (test code = 7.37 1810) OXYGEN SATURATION, [id number] 13:41:00 Test Item Value Reference Range Interpretation Comments O2 SATURATION (MEASURED) ([facility]) 53.2 % (test code = 1455) [id number] 13:02:00 Test Item Value Reference Range Interpretation Comments ACTIVATED CLOTTING TIME 109 sec TEST ED AT [place] [address] ([facility]) (test code = [place] [address]) [id number] 13:02:00 Test Item Value Reference Range Interpretation Comments ACTIVATED CLOTTING TIME 543 sec TEST ED AT [place] [address] ([facility]) (test code = [place] [address]) [id number] 13:02:00 Test Item Value Reference Range Interpretation Comments ACTIVATED CLOTTING TIME 477 sec TEST ED AT [place] [address] ([facility]) (test code = [place] [address]) [id number] 13:02:00 Test Item Value Reference Range Interpretation Comments ACTIVATED CLOTTING TIME 538 sec TEST ED AT [place] [address] ([facility]) (test code = [place] [address]) [id number] 13:02:00 Test Item Value Reference Range Interpretation Comments ACTIVATED CLOTTING TIME 610 sec TEST ED AT [place] [address] ([facility]) (test code = [place] [address]) [id number] 13:02:00 Test Item Value Reference Range Interpretation Comments ACTIVATED CLOTTING TIME 367 sec TEST ED AT [place] [address] ([facility]) (test code = [place] [address]) [id number] 13:02:00 Test Item Value Reference Range Interpretation Comments ACTIVATED CLOTTING TIME 516 sec TEST ED AT [place] [address] ([facility]) (test code = [place] [address]) [address] BLOOD GAS, [id number] 12:22:00 Test Item Value Reference Range Interpretation Comments PH ARTERIAL ([facility]) (test code = 7.29 7.35-7.45 L 383) PCO2 ARTERIAL (BEAKER) (test code 42 mmHg 35-45 = 384) PO2 ARTERIAL (BEAKER) (test code 138 mmHg 80-90 H = 385) O2 SATURATION ARTERIAL (BEAKER) 98.6 % 96.0-97.0 H (test code = 386) HCO3 ARTERIAL (BEAKER) (test code 20 mmol/L 21-29 L = 388) BASE EXCESS ARTERIAL (BEAKER) -6.6 mmol/L -2.0-3.0 L (test code = 387) PATIENT TEMPERATURE (BEAKER) 35.3 C (test code = 1818) FIO2 (BEAKER) (test code = 1819) 100.0 % GLUCOSE-STAT [id number] 12:22:00 Test Item Value Reference Range Interpretation Comments GLUCOSE RANDOM (BEAKER) (test code 141 mg/dL 70-110 H = 652) HGB/HCT (H&H) - STAT [id number] 12:22:00 Test Item Value Reference Range Interpretation Comments HEMOGLOBIN (BEAKER) (test code = 8.6 g/dL 12.0-15.0 L 410) HEMATOCRIT (BEAKER) (test code = 25.0 % 36.0-45.0 L 411) SODIUM NA-STAT [id number] 12:19:00 Test Item Value Reference Range Interpretation Comments SODIUM (BEAKER) (test code = 381) 137 meq/L 135-148 POTASSIUM-STAT [id number] 12:19:00 Test Item Value Reference Range Interpretation Comments POTASSIUM (BEAKER) (test code = 4.5 meq/L 3.6-5.5 379) SODIUM NA-STAT [id number] 11:50:00 Test Item Value Reference Range Interpretation Comments SODIUM (BEAKER) (test code = 381) 135 meq/L 135-148 POTASSIUM-STAT [id number] 11:50:00 Test Item Value Reference Range Interpretation Comments POTASSIUM (BEAKER) (test code = 5.1 meq/L 3.6-5.5 379) BLOOD GAS, [id number] 11:50:00 Test Item Value Reference Range Interpretation Comments PH ARTERIAL (BEAKER) (test code = 7.33 7.35-7.45 L 383) PCO2 ARTERIAL (BEAKER) (test code 41 mmHg 35-45 = 384) PO2 ARTERIAL (BEAKER) (test code 124 mmHg 80-90 H = 385) O2 SATURATION ARTERIAL (BEAKER) 98.3 % 96.0-97.0 H (test code = 386) HCO3 ARTERIAL (BEAKER) (test code 21 mmol/L 21-29 = 388) BASE EXCESS ARTERIAL (BEAKER) -4.6 mmol/L -2.0-3.0 L (test code = 387) PATIENT TEMPERATURE (BEAKER) 36.0 C (test code = 1818) FIO2 (BEAKER) (test code = 1819) 100.0 % GLUCOSE-STAT [id number] 11:50:00 Test Item Value Reference Range Interpretation Comments GLUCOSE RANDOM (BEAKER) (test code 131 mg/dL 70-110 H = 652) HGB/HCT (H&H) - STAT [id number] 11:50:00 Test Item Value Reference Range Interpretation Comments HEMOGLOBIN (BEAKER) (test code = 6.7 g/dL 12.0-15.0 L 410) HEMATOCRIT (BEAKER) (test code = 20.0 % 36.0-45.0 L 411) CALCIUM, [id number] 11:50:00 Test Item Value Reference Range Interpretation Comments CALCIUM IONIZED (BEAKER) (test 1.19 mmol/L 1.12-1.27 code = 698) PH, BLOOD (BEAKER) (test code = 7.32 1810) BLOOD GAS, [id number] 11:13:00 Test Item Value Reference Range Interpretation Comments PH ARTERIAL (BEAKER) (test code = 7.37 7.35-7.45 383) PCO2 ARTERIAL (BEAKER) (test code 40 mmHg 35-45 = 384) PO2 ARTERIAL (BEAKER) (test code 332 mmHg 80-90 H = 385) O2 SATURATION ARTERIAL (BEAKER) 99.7 % 96.0-97.0 H (test code = 386) HCO3 ARTERIAL (BEAKER) (test code 23 mmol/L 21-29 = 388) BASE EXCESS ARTERIAL (BEAKER) -2.0 mmol/L -2.0-3.0 (test code = 387) PATIENT TEMPERATURE (BEAKER) 36.5 C (test code = 1818) FIO2 (BEAKER) (test code = 1819) 70.0 % GLUCOSE-STAT [id number] 11:13:00 Test Item Value Reference Range Interpretation Comments GLUCOSE RANDOM (BEAKER) (test code 142 mg/dL 70-110 H = 652) HGB/HCT (H&H) - STAT [id number] 11:13:00 Test Item Value Reference Range Interpretation Comments HEMOGLOBIN (BEAKER) (test code = 6.7 g/dL 12.0-15.0 L 410) HEMATOCRIT (BEAKER) (test code = 20.0 % 36.0-45.0 L 411) POTASSIUM-STAT [id number] 11:13:00 Test Item Value Reference Range Interpretation Comments POTASSIUM (BEAKER) (test code = 6.0 meq/L 3.6-5.5 HH 379) SODIUM NA-STAT [id number] 11:12:00 Test Item Value Reference Range Interpretation Comments SODIUM (BEAKER) (test code = 381) 135 meq/L 135-148 POTASSIUM-STAT [id number] 10:57:00 Test Item Value Reference Range Interpretation Comments POTASSIUM (BEAKER) (test code = 5.5 meq/L 3.6-5.5 379) BLOOD GAS, [id number] 10:57:00 Test Item Value Reference Range Interpretation Comments PH ARTERIAL (BEAKER) (test code = 7.35 7.35-7.45 383) PCO2 ARTERIAL (BEAKER) (test code 42 mmHg 35-45 = 384) PO2 ARTERIAL (BEAKER) (test code 375 mmHg 80-90 H = 385) O2 SATURATION ARTERIAL (BEAKER) 99.8 % 96.0-97.0 H (test code = 386) HCO3 ARTERIAL (BEAKER) (test code 23 mmol/L 21-29 = 388) BASE EXCESS ARTERIAL (BEAKER) -2.8 mmol/L -2.0-3.0 L (test code = 387) PATIENT TEMPERATURE (BEAKER) 36.5 C (test code = 1818) FIO2 (BEAKER) (test code = 1819) 70.0 % SODIUM NA-STAT [id number] 10:57:00 Test Item Value Reference Range Interpretation Comments SODIUM (BEAKER) (test code = 381) 134 meq/L 135-148 L GLUCOSE-STAT [id number] 10:57:00 Test Item Value Reference Range Interpretation Comments GLUCOSE RANDOM (BEAKER) (test code 153 mg/dL 70-110 H = 652) HGB/HCT (H&H) - STAT [id number] 10:57:00 Test Item Value Reference Range Interpretation Comments HEMOGLOBIN (BEAKER) (test code = 7.3 g/dL 12.0-15.0 L 410) HEMATOCRIT (BEAKER) (test code = 21.0 % 36.0-45.0 L 411) BLOOD GAS, [id number] 10:31:00 Test Item Value Reference Range Interpretation Comments PH ARTERIAL (BEAKER) (test code = 7.48 7.35-7.45 H 383) PCO2 ARTERIAL (BEAKER) (test code 33 mmHg 35-45 L = 384) PO2 ARTERIAL (BEAKER) (test code = 324 mmHg 80-90 H 385) O2 SATURATION ARTERIAL (BEAKER) 99.8 % 96.0-97.0 H (test code = 386) HCO3 ARTERIAL (BEAKER) (test code 25 mmol/L 21-29 = 388) BASE EXCESS ARTERIAL (BEAKER) 0.5 mmol/L -2.0-3.0 (test code = 387) PATIENT TEMPERATURE (BEAKER) (test 34.2 C code = 1818) FIO2 (BEAKER) (test code = 1819) 70.0 % SODIUM NA-STAT [id number] 10:31:00 Test Item Value Reference Range Interpretation Comments SODIUM (BEAKER) (test code = 381) 134 meq/L 135-148 L POTASSIUM-STAT [id number] 10:31:00 Test Item Value Reference Range Interpretation Comments POTASSIUM (BEAKER) (test code = 5.6 meq/L 3.6-5.5 H 379) GLUCOSE-STAT [id number] 10:31:00 Test Item Value Reference Range Interpretation Comments GLUCOSE RANDOM (BEAKER) (test code 166 mg/dL 70-110 H = 652) HGB/HCT (H&H) - STAT [id number] 10:31:00 Test Item Value Reference Range Interpretation Comments HEMOGLOBIN (BEAKER) (test code = 6.5 g/dL 12.0-15.0 L 410) HEMATOCRIT (BEAKER) (test code = 19.0 % 36.0-45.0 L 411) BLOOD GAS, [id number] 10:06:00 Test Item Value Reference Range Interpretation Comments PH VENOUS (BEAKER) (test code = 7.32 7.32-7.42 701) PCO2 VENOUS (BEAKER) (test code = 44 mmHg 41-51 755) PO2 VENOUS (BEAKER) (test code = 41 mmHg 25-40 H 702) O2 SATURATION VENOUS (BEAKER) 80.5 % 40.0-70.0 H (test code = 703) HCO3 VENOUS (BEAKER) (test code = 23 mmol/L 21-29 705) BASE EXCESS VENOUS (BEAKER) (test -3.6 mmol/L -2.0-3.0 L code = 704) PATIENT TEMPERATURE (BEAKER) 34.0 C (test code = 1818) FIO2 (BEAKER) (test code = 1819) 80.0 % BLOOD GAS, [id number] 10:06:00 Test Item Value Reference Range Interpretation Comments PH ARTERIAL (BEAKER) (test code = 7.38 7.35-7.45 383) PCO2 ARTERIAL (BEAKER) (test code 35 mmHg 35-45 = 384) PO2 ARTERIAL (BEAKER) (test code 548 mmHg 80-90 H = 385) O2 SATURATION ARTERIAL (BEAKER) 99.9 % 96.0-97.0 H (test code = 386) HCO3 ARTERIAL (BEAKER) (test code 21 mmol/L 21-29 = 388) BASE EXCESS ARTERIAL (BEAKER) -4.5 mmol/L -2.0-3.0 L (test code = 387) PATIENT TEMPERATURE (BEAKER) 34.0 C (test code = 1818) FIO2 (BEAKER) (test code = 1819) 80.0 % SODIUM NA-STAT [id number] 10:06:00 Test Item Value Reference Range Interpretation Comments SODIUM (BEAKER) (test code = 381) 131 meq/L 135-148 L HGB/HCT (H&H) - STAT [id number] 10:06:00 Test Item Value Reference Range Interpretation Comments HEMOGLOBIN (BEAKER) (test code = 5.3 g/dL 12.0-15.0 LL 410) HEMATOCRIT (BEAKER) (test code = 16.0 % 36.0-45.0 L 411) POTASSIUM-STAT [id number] 10:05:00 Test Item Value Reference Range Interpretation Comments POTASSIUM (BEAKER) (test code = 4.5 meq/L 3.6-5.5 379) GLUCOSE-STAT [id number] 10:05:00 Test Item Value Reference Range Interpretation Comments GLUCOSE RANDOM (BEAKER) (test code 169 mg/dL 70-110 H = 652) BLOOD GAS, [id number] 08:10:00 Test Item Value Reference Range Interpretation Comments PH ARTERIAL (BEAKER) (test code = 7.42 7.35-7.45 383) PCO2 ARTERIAL (BEAKER) (test code 39 mmHg 35-45 = 384) PO2 ARTERIAL (BEAKER) (test code = 454 mmHg 80-90 H 385) O2 SATURATION ARTERIAL (BEAKER) 99.9 % 96.0-97.0 H (test code = 386) HCO3 ARTERIAL (BEAKER) (test code 25 mmol/L 21-29 = 388) BASE EXCESS ARTERIAL (BEAKER) 0.5 mmol/L -2.0-3.0 (test code = 387) PATIENT TEMPERATURE (BEAKER) (test 37.0 C code = 1818) FIO2 (BEAKER) (test code = 1819) 87.0 % GLUCOSE-STAT [id number] 08:10:00 Test Item Value Reference Range Interpretation Comments GLUCOSE RANDOM (BEAKER) (test code 113 mg/dL 70-110 H = 652) HGB/HCT (H&H) - STAT [id number] 08:10:00 Test Item Value Reference Range Interpretation Comments HEMOGLOBIN (BEAKER) (test code = 9.1 g/dL 12.0-15.0 L 410) HEMATOCRIT (BEAKER) (test code = 27.0 % 36.0-45.0 L 411) SODIUM NA-STAT [id number] 08:09:00 Test Item Value Reference Range Interpretation Comments SODIUM (BEAKER) (test code = 381) 138 meq/L 135-148 POTASSIUM-STAT [id number] 08:09:00 Test Item Value Reference Range Interpretation Comments POTASSIUM (BEAKER) (test code = 4.1 meq/L 3.6-5.5 379) CALCIUM, [id number] 08:09:00 Test Item Value Reference Range Interpretation Comments CALCIUM IONIZED (BEAKER) (test 1.13 mmol/L 1.12-1.27 code = 698) PH, BLOOD (BEAKER) (test code = 7.42 1810) TROPONIN [id number] 04:51:00 Test Item Value Reference Range Interpretation Comments TROPONIN I (BEAKER) (test code = 0.78 ng/mL 0.00-0.03 HH 397) Troponin I (TnI) levels must be interpreted [...] acute neurological disease, and persistent tachyarrhythmia.BASIC METABOLIC [id number] 04:48:00 Test Item Value Reference Range Interpretation Comments SODIUM (BEAKER) 139 meq/L 136-145 (test code = 381) POTASSIUM (BEAKER) 4.7 meq/L 3.5-5.1 (test code = 379) CHLORIDE (BEAKER) 110 meq/L 98-107 H (test code = 382) CO2 (BEAKER) (test 22 meq/L 22-29 code = 355) BLOOD UREA NITROGEN 24 mg/dL 7-21 H (BEAKER) (test code = 354) CREATININE (BEAKER) 1.01 mg/dL 0.57-1.25 (test code = 358) GLUCOSE RANDOM 119 mg/dL 70-105 H (BEAKER) (test code = 652) CALCIUM (BEAKER) 8.7 mg/dL 8.4-10.2 (test code = 697) EGFR (BEAKER) (test 53 mL/min/1.73 ESTIMA MARIAN GFR IS code = 1092) sq m NOT ACCURATE CREATININE CLEARANCE IN PREDICTING GLOMERULAR FILTRATION RATE . ESTIMATED GFR I S NOT APPLICABLE FOR DIALYSIS PATIEN TS. CREATINE KINASE (CK), TOTAL AND [id number] 04:46:00 Test Item Value Reference Range Interpretation Comments CREATINE KINASE TOTAL (BEAKER) 65 U/L 29-200 (test code = 380) CREATINE KINASE-MB (BEAKER) (test 2.1 ng/mL 0.0-6.6 code = 750) CREATINE KINASE-MB INDEX (BEAKER) 3.2 % (test code = 395) CK-MB Reference Range:<6.7 Normal6.7-10.0 Borderline>10.0 AbnormalCBC W/PLT COUNT & AUTO [id number] 04:20:00 Test Item Value Reference Range Interpretation Comments WHITE BLOOD CELL COUNT (BEAKER) 19.7 K/ L 3.5-10.5 H (test code = 775) RED BLOOD CELL COUNT (BEAKER) 2.77 M/ L 3.93-5.22 L (test code = 761) HEMOGLOBIN (BEAKER) (test code = 8.4 GM/DL 11.2-15.7 L 410) HEMATOCRIT (BEAKER) (test code = 26.8 % 34.1-44.9 L 411) MEAN CORPUSCULAR VOLUME (BEAKER) 96.8 fL 79.4-94.8 H (test code = 753) MEAN CORPUSCULAR HEMOGLOBIN 30.3 pg 25.6-32.2 (BEAKER) (test code = 751) MEAN CORPUSCULAR HEMOGLOBIN CONC 31.3 GM/DL 32.2-35.5 L (BEAKER) (test code = 752) RED CELL DISTRIBUTION WIDTH 14.2 % 11.7-14.4 (BEAKER) (test code = 412) PLATELET COUNT (BEAKER) (test 169 K/CU MM 150-450 code = 756) MEAN PLATELET VOLUME (BEAKER) 12.9 fL 9.4-12.3 H (test code = 754) NUCLEATED RED BLOOD CELLS 0 /100 WBC 0-0 (BEAKER) (test code = 413) NEUTROPHILS RELATIVE PERCENT 83 % (BEAKER) (test code = 429) LYMPHOCYTES RELATIVE PERCENT 9 % (BEAKER) (test code = 430) MONOCYTES RELATIVE PERCENT 7 % (BEAKER) (test code = 431) EOSINOPHILS RELATIVE PERCENT 0 % (BEAKER) (test code = 432) BASOPHILS RELATIVE PERCENT 0 % (BEAKER) (test code = 437) NEUTROPHILS ABSOLUTE COUNT 16.40 K/ L 1.56-6.13 H (BEAKER) (test code = 670) LYMPHOCYTES ABSOLUTE COUNT 1.84 K/ L 1.18-3.74 (BEAKER) (test code = 414) MONOCYTES ABSOLUTE COUNT (BEAKER) 1.29 K/ L 0.24-0.36 H (test code = 415) EOSINOPHILS ABSOLUTE COUNT 0.00 K/ L 0.04-0.36 L (BEAKER) (test code = 416) BASOPHILS ABSOLUTE COUNT (BEAKER) 0.02 K/ L 0.01-0.08 (test code = 417) IMMATURE GRANULOCYTES-RELATIVE 1 % 0-1 PERCENT (BEAKER) (test code = 2801) [id number] 04:14:00 Test Item Value Reference Range Interpretation Comments PARTIAL THROMBOPLASTIN TIME 74.8 seconds 22.5-36.0 H (BEAKER) (test code = 760) HEMOGLOBIN [id number] 21:12:00 Test Item Value Reference Range Interpretation Comments HEMOGLOBIN A1C (BEAKER) (test code = 6.0 % 4.3-6.1 368) [id number] 19:53:00 Test Item Value Reference Range Interpretation Comments FERRITIN (BEAKER) (test code = 361) 58 ng/mL 5-275 TROPONIN [id number] 19:49:00 Test Item Value Reference Range Interpretation Comments TROPONIN I (BEAKER) (test code = 0.69 ng/mL 0.00-0.03 HH 397) Troponin I (TnI) levels must be interpreted [...] disease, and persistent tachyarrhythmia.B-TYPE NATRIURETIC FACTOR (BNP) 2017-05-22 19:36:00 Test Item Value Reference Range Interpretation Comments B-TYPE NATRIURETIC PEPTIDE (BEAKER) 202 pg/mL 0-100 H (test code = 700) IRON, TIBC, % SAT. (WITHOUT FERRITIN)2017-05-22 19:32:00 Test Item Value Reference Range Interpretation Comments IRON (BEAKER) (test code = 547) 36 ug/dL 40-160 L TOTAL IRON BINDING CAPACITY 365 ug/dL 250-450 (BEAKER) (test code = 769) IRON % SATURATION (2) (BEAKER) 10 % 20-55 L (test code = 2590) LIPID [id number] 19:30:00 Test Item Value Reference Range Interpretation Comments TRIGLYCERIDES (BEAKER) (test code = 86 mg/dL 540) CHOLESTEROL (BEAKER) (test code = 114 mg/dL 631) HDL CHOLESTEROL (BEAKER) (test code 40 mg/dL = 976) LDL CHOLESTEROL CALCULATED (BEAKER) 57 mg/dL (test code = 633) Triglyceride Reference Range: Low Risk <150 Borderline 150-199 High Risk 200-499 Very High Risk >=500Cholesterol Reference Range: Low Risk <200 Borderline 200-239 High Risk >240HDL Cholesterol Reference Range: Low Risk >=60 High Risk <40LDL Cholesterol Reference Range: Optimal <100 Near Optimal 100-129 Borderline 130-159 High 160-189 Very High >=190BASIC METABOLIC [id number] 19:30:00 Test Item Value Reference Range Interpretation Comments SODIUM (BEAKER) 138 meq/L 136-145 (test code = 381) POTASSIUM (BEAKER) 4.5 meq/L 3.5-5.1 (test code = 379) CHLORIDE (BEAKER) 108 meq/L 98-107 H (test code = 382) CO2 (BEAKER) (test 21 meq/L 22-29 L code = 355) BLOOD UREA NITROGEN 23 mg/dL 7-21 H (BEAKER) (test code = 354) CREATININE (BEAKER) 1.05 mg/dL 0.57-1.25 (test code = 358) GLUCOSE RANDOM 195 mg/dL 70-105 H (BEAKER) (test code = 652) CALCIUM (BEAKER) 8.9 mg/dL 8.4-10.2 (test code = 697) EGFR (BEAKER) (test 51 mL/min/1.73 ESTIMA MARIAN GFR IS code = 1092) sq m NOT ACCURATE CREATININE CLEARANCE IN PREDICTING GLOMERULAR FILTRATION RATE . ESTIMATED GFR I S NOT APPLICABLE FOR DIALYSIS PATIEN TS. RAD, CHEST, 1 VIEW, NON [id number] 19:30:00Reason for exam:->chest painShould this be performed [...] is no acute bony abnormality. Signed: Bear S[place] Verified Date/Time: 05/22/2017 19:30:20 Reading Location: [address] Reading Room [id number] 19:26:00 Test Item Value Reference Range Interpretation Comments PARTIAL THROMBOPLASTIN TIME 27.3 seconds 22.5-36.0 ([facility]) (test code = 760) PROTHROMBIN TIME/[id number] 19:25:00 Test Item Value Reference Range Interpretation Comments PROTIME ([facility]) (test code = 14.3 seconds 11.7-14.7 759) INR ([facility]) (test code = 370) 1.1 <=5.9 RECOMMENDED COUMADIN/WARFARIN INR THERAPY RANGESSTANDARD DOSE: 2.0 - 3.0 Includes: PROPHYLAXIS forvenous thrombosis, systemic embolization; TREATMENT for venous thrombosis and/or pulmonary embolus.HIGH RISK: Target INR is 2.5-3.5 for patients with mechanical heart valves.POCT-GLUCOSE [id number] 19:10:00 Test Item Value Reference Range Interpretation Comments POC-GLUCOSE METER 231 mg/dL 70-110 H TESTED AT [facility] 0460 ([facility]) (test code = LIT CANTU 5462) [id number]
--- OUTSIDE RECORDS SUMMARY | 2020-05-11 23:03 | XMS REPORT | Summary of Care ---
:1940 Author Organization [facility] Address [address] [place] [address] Care Team Providers Name Role Phone Milka Primary Care Provider MD Lex Unavailable Osmar Whitney Commercial Horticulture Instructor Carmelina Rome MD Surgeon MD Chance Door Installer Reason for Visit Reason Comments Rx Concern/Question Refill req for metoprolol Appointment Office visit needed Encounter Details Date Type Department Care Team Description 05/08/2020 Telephone [facility] Ladarius Burnett M D Rx Concern/Question Cardiology- [address] (Refill req for [address] metoprolol); [address] Appointment (Office [place] [phone] visit needed) [id number] Allergies Active Allergy Reactions Severity Noted Date Comments Iodine Hives High 12/16/2016 documented as of this encounter (statuses as of 05/10/2020) Medications Medication Sig Dispensed Refills Start Date End Date Status donepezil 5 mg Take 5 mg by 0 Ac tive tablet mouth at bedtime. ALBUTEROL INHALE Inhale. 0 Act nila aspirin 81 mg EC Take 1 tablet by 0 12/16/2016 Active tablet mouth daily. nitroglycerin 0.[address] 1 tablet 1 Bottle 5 01/08/2017 Active sublingual tablet under the tongue every 5 (five) minutes as needed for Chest pain. atorvastatin 40 mg Take 1 tablet by 30 tablet 1 09/04/2017 Active tablet mouth daily. escitalopram oxalate Take 10 mg by 0 Active 10 mg tablet mouth daily. megestrol 40 mg Take 40 mg by [...] Take by mouth 0 Ac tive ORALIndications: one daily. a day Indications: one a day levothyroxine 25 mcg Take 25 mcg by 0 Active tablet mouth every morning. vitamin B-12 Take 1,000 mcg 0 Ac tive (VITAMIN B-12) 1,000 by mouth daily. mcg tablet diphenhydramine HCl Take by mouth 0 Active (BENADRYL ORAL) daily. triamcinolone Apply to 0 Active acetonide (KENALOG area(s) 2 (two) TOPICAL) times daily. lisinopril 5 mg Take 1 tablet by 30 tablet 5 04/09/2019 Active tabletIndications: mouth daily. Coronary artery disease involving afognak heart without angina pectoris, unspecified vessel or lesion type, S/P AAA repair, Cigarette smoker clopidogrel 75 mg Take 1 tablet by 30 tablet 5 04/09/2019 Active tablet mouth daily. metoprolol succinate Take 0.5 tablets 30 tablet 0 05/10/2020 Active XL 25 mg 24 hr by mouth daily. tabletIndications: Please call Coronary artery office and disease involving schedule afognak heart without appointment for angina pectoris, more refills. unspecified vessel or lesion type, S/P AAA repair, Cigarette smoker metoprolol succinate Take 0.5 tablets 30 tablet 0 03/14/2020 0 05/10/20 Discontinued XL 25 mg 24 hr by mouth daily. 20 tabletIndications: Please call Coronary artery office and disease involving schedule afogn[place] heart without appointment for angina pectoris, more refills. unspecified vessel or lesion type, S/P AAA repair, Cigarette smoker documented as of this encounter (statuses as of 05/10/2020) Active Problems Problem Noted Date Coronary artery disease involving afognak heart without angina pectoris, 06/17/2017 unspecified vessel or lesion type S/P CABG x 2 06/17/2017 documented as of this encounter (statuses as of 05/10/2020) Social History Tobacco Use Types Packs/Day Years Used Date Former Smoker Cigarettes 1.5 30 Quit: 12/17/19 11 Smokeless Tobacco: Never Used Alcohol Use Drinks/Week oz/Week Comments No Sex Assigned at Date Recorded Not on file documented as of this encounter Last Filed Vital Signs Not on filedocumented in this encounter Miscellaneous Notes Addendum Note - Valarie Baker RN - 05/10/2020 11:03 AM CDT Addended by: VALARIE BAKER on: 05/10/2020 11:03 AM Modules accepted: Orders Telephone Encounter - Valarie Baker RN - 05/10/2020 11:03 AM CDTOne month refill sent per md. Must have an appointment before next refill. elephone Encounter - Valarie Baker RN - 05/10/2020 8:45 AM CDTAttempted to contact patient to schedule visit. No Answer. LVm to return call to clinic. Third attempt. Letter will be sent. elephone Encounter - Valarie Baker RN - 05/09/2020 9:50 AM CDT Attempted to contact patient again to schedule an office visit to refill her medication. No Answer. LVM to return call to clinic. elephone Encounter - Valarie Baker RN - 05/08/2020 10:49 AM CDTReceived refill request for Metoprolol 25 mg ER by [facility]. Note in [place] states one month refill approved until patient is seen in the office. Attempted to contact patient to schedule appointment. No answer. LVM to return call to clinic so we can schedule an appointment and labs. documented in this encounter Plan of Treatment Health Maintenance Due Date Last Done Comments Depression Screening 1952 DTaP,Tdap,and Td Vaccines (1 - Tdap) 1959 Zoster Recombinant Vaccine (SHINGRIX) (1 of 2) 1990 LUNG CANCER SCREEN: Recommended for age 55-80 with 30 + 05/13/19 95 pack year history Medicare Wellness Visit 2005 Osteoporosis Screening 2005 PNEUMOCOCCAL VACCINES 65+ (1 of 1 - PPSV23) 2005 INFLUENZA VACCINE (#1) 2020 documented as of this encounter Results Not on filedocumented in this encounter Visit Diagnoses Diagnosis Coronary artery disease involving afognak heart without angina pectoris, unspecified vessel or lesion type S/P AAA repair Other postprocedural status Cigarette smoker Tobacco use disorder documented in this encounter Insurance Payer Benefit Plan / Subscriber ID Effective Dates Phone Addre ss Type Group MEDICARE MEDICARE PART [id number] 2005-Chin [phone] Medicare A & B t 2 [id number] SHEILA GARCIA [address] MELINA [facility] [id number] 2016-Nicolas carroll documented as of this encounter
--- OUTSIDE RECORDS SUMMARY | 2020-05-11 23:03 | XMS REPORT | Summary of Care ---
:1940 Author Organization [facility] Address [address] [place] [address] Care Team Providers Name Role Phone Milka Primary Care Provider MD Lex Unavailable Osmar Whitney Desk Operator Carmelina Rome MD Surgeon MD Chance Inside Barrel Lathe Operator Reason for Visit Reason Comments Rx Concern/Question Refill req for metoprolol Appointment Office visit needed Encounter Details Date Type Department Care Team Description 05/08/2020 Telephone [facility] Ladarius Burnett M D Rx Concern/Question Cardiology- [address] (Refill req for [address] metoprolol); [address] Appointment (Office [place] [phone] [phone] visit needed) [id number] Allergies Active Allergy Reactions Severity Noted Date Comments Iodine Hives High 12/16/2016 documented as of this encounter (statuses as of 05/10/2020) Medications Medication Sig Dispensed Refills Start Date End Date Status donepezil 5 mg tablet Take 5 mg by mouth 0 Active at bedtime. ALBUTEROL INHALE Inhale. 0 Act [...] mg tablet mouth daily. megestrol 40 mg tablet Take 40 mg by 0 Active mouth 2 (two) times daily. zolpidem 10 mg tablet Take 10 mg by 0 Active mouth at bedtime as needed for Insomnia. metFORMIN 500 mg Take 500 mg by 0 Active tablet mouth 2 (two) times daily with meals. IRON FUM/FOLIC Take by mouth 0 Active ACID/MV,MIN 15 daily. (HEMOCYTE-PLUS ORAL) MULTIVITAMIN Take by mouth 0 Ac tive ORALIndications: one a daily. day Indications: one a day levothyroxine 25 mcg Take 25 mcg by 0 Active tablet mouth every morning. vitamin B-12 (VITAMIN Take 1,000 mcg by 0 Active B-12) 1,000 mcg tablet mouth daily. diphenhydramine HCl Take by mouth 0 Active (BENADRYL ORAL) daily. triamcinolone Apply to area(s) 0 Active acetonide (KENALOG 2 (two) times TOPICAL) daily. lisinopril 5 mg Take 1 tablet by 30 tablet 5 04/09/2019 Active tabletIndications: mouth daily. Coronary artery disease involving nikolai heart without angina pectoris, unspecified vessel or lesion type, S/P AAA repair, Cigarette smoker clopidogrel 75 mg Take 1 tablet by 30 tablet 5 04/09/2019 Active tablet mouth daily. metoprolol succinate Take 0.5 tablets 30 tablet 0 03/14/2020 Active XL 25 mg 24 hr by mouth daily. tabletIndications: Please call office Coronary artery and schedule disease involving appointment for nikolai heart without more refills. angina pectoris, unspecified vessel or lesion type, S/P AAA repair, Cigarette smoker documented as of this encounter (statuses as of 05/10/2020) Active Problems Problem Noted Date Coronary artery disease involving nikolai heart without angina pectoris, 06/17/2017 unspecified vessel [...] on filedocumented in this encounter Miscellaneous Notes Telephone Encounter - Jessa Piedra RN - 05/10/2020 8:45 AM CDTAttempted to contact patient to schedule visit. No Answer. LVm to return call to clinic. Third attempt. Letter will be sent. elephone Encounter - Jessa Piedra RN - 05/09/2020 9:50 AM CDTAttempted to contact patient again to schedule an office visit to refill her medication. No Answer. LVM to return call to clinic. Telephone Encounter - Jessa Piedra RN - 05/08/2020 10:49 AM CDTReceived refill request for Metoprolol 25 mg ER by [facility]. Note in March one month refill approved until patient is [...] Results Not on filedocumented in this encounter Insurance Payer Benefit Plan / Subscriber ID Effective Dates Phone Addre ss Type Group MEDICARE MEDICARE PART [id number] 2005-Chin [phone] Medicare A & B t 2 [id number] SHEILA GARCIA [address] [facility] [id number] 2016-Nicolas carroll documented as of this encounter
[2020-05-11 23:35] LABS: Absolute Lymphocytes (CBC) 0.7 K/uL (0.7-4.9); Basophils % 0.3 % (0-1.3); Hematocrit 37.9 % (36.0-45.0); Lymphocytes % 4.6 % (15.3-44.8); MPV 10.8 fL (7.6-11.3); RBC Red Blood Cell Count 3.95 M/uL (3.86-4.86)
[2020-05-11 23:36] LABS: Protime INR 1.11
[2020-05-11 23:56] LABS: ALT/SGPT 14 U/L (12-78); AST/SGOT 16 U/L (15-37); Albumin 3.2 g/dL (3.4-5.0); Alkaline Phosphatase 99 U/L (45-117); BUN Blood Urea Nitrogen 22 mg/dL (7-18); Bicarbonate 24 mmol/L (21-32); Bilirubin Direct 0.1 mg/dL (0-0.2); Bilirubin Total 0.4 mg/dL (0.2-1.0); Glucose Level 140 mg/dL (74-106); Potassium 3.5 mmol/L (3.5-5.1); Protein, Total 7.3 g/dL (6.4-8.2); Sodium Level 147 mmol/L (136-145); Troponin (Emerg Dept Use Only) < 0.02 ng/mL (0.0-0.045)
[2020-05-12 00:12] LABS: Blood Morphology Comment NOT SEEN (NOT SEEN); Platelet Estimate ADEQ
[2020-05-12] MEDS ORDERED: NA CHLORIDE 0.9% 500 ML ONE (02:01)
[2020-05-12 02:10] LABS: Urine Blood 2+ (NEG); Urine Glucose NEGATIVE (NEG); Urine Protein TRACE (NEG); Urine Specific Gravity 1.025 (1.005-1.030); Urine pH 5.5 (5.0-7.0)
[2020-05-12 02:17] LABS: Urine Bacteria LOADED /HPF (<20); Urine Culture Reflex Order REFLEXED; Urine Mucus 1+ /HPF (NONE SEEN); Urine RBC <5 /HPF (NONE SEEN)
--- NOTE | 2020-05-12 02:34 | EDPHYS ---
Physician Documentation [facility] Name: Maricel Guerrero Age: 79 yrs Sex: Female : 1940 Arrival Date: 05/11/2020 Time: 22:49 Bed 8 Private MD: ED Physician Chava Soria HPI: 05/11 23:20 This 79 yrs old Female presents to ER via EMS with complaints of LEFT ARM cp PAIN. 23:20 Details of fall: The patient fell from seated position, out of a wheelchair. cp 23:20 Onset: The symptoms/episode began/occurred today. noted bruising to left upper arm. cp Historical: - Allergies: 22:56 Iodine; rv - PMHx: 22:56 AAA; Colon Cancer with metastasis to liver; Diabetes - NIDDM; Headaches; Hypertension; rv Hypothyroidism; - PSHx: 22:56 None; rv - Immunization history:: Adult Immunizations up to date. - Social history:: Smoking status: Patient reports the use of cigarette tobacco products, smokes one pack cigarettes per day. ROS: 23:20 Constitutional: Negative for body aches, chills, fever, poor PO intake. cp 23:20 Eyes: Negative for injury, pain, redness, and discharge. cp 23:20 Neck: Positive for pain with movement, pain at rest, bony tenderness. 23:20 Cardiovascular: Negative for chest pain. 23:20 Respiratory: Negative for cough, shortness of breath, wheezing. 23:20 Abdomen/GI: Negative for abdominal pain, vomiting, diarrhea, constipation. 23:20 MS/extremity: Positive for ecchymosis, of the left upper arm. 23:20 Neuro: Negative for altered mental status, headache. 23:20 All other systems are negative. Exam: 23:25 Constitutional: The patient appears in no acute distress, alert, awake, cp non-diaphoretic, non-toxic, well developed, well nourished. 23:25 Head/Face: Normocephalic, atraumatic. cp 23:25 Eyes: Periorbital structures: appear normal, Pupils: equal, round, and reactive to light and accomodation, Extraocular movements: Conjunctiva: normal, no exudate, no injection, Sclera: no appreciated abnormality, Lids and lashes: appear normal, bilaterally. 23:25 ENT: External ear(s): are unremarkable, Nose: is normal, Posterior pharynx: Airway: no evidence of obstruction, patent. 23:25 Neck: C-spine: vertebral tenderness, that is mild, appreciated at C7. 23:25 Chest/axilla: Inspection: normal, Palpation: is normal, no crepitus, no tenderness. 23:25 Cardiovascular: Rate: normal, Rhythm: regular. 23:25 Respiratory: the patient does not display signs of respiratory distress, Respirations: normal, no use of accessory muscles, no retractions, labored breathing, is not present, Breath sounds: are clear throughout, no decreased breath sounds. 23:25 Abdomen/GI: Inspection: abdomen appears normal, Palpation: abdomen is soft and non-tender, in all quadrants. 23:25 Back: pain, that is mild, ROM is normal. cp 23:25 Skin: intact without open wounds. 23:25 Musculoskeletal/extremity: Extremities: grossly normal except: noted in the left upper cp arm: ecchymosis, There is no evidence of decreased ROM, deformity. 23:25 Neuro: Orientation: no acute changes, per EMS, Mentation: no acute changes, per EMS. 23:55 ECG was reviewed by the Attending Physician. cp Vital Signs: 22:52 BP 130 / 71; Pulse 79; Resp 14; Temp 97.5; Pulse Ox 100% ; Weight 53.98 kg; Height 5 rv ft. (152.40 cm); Pain 4/10; 23:38 BP 138 / 86; Pulse 73; Resp 16; Pulse Ox 98% on R/A; rv 09/04 00:30 BP 138 / 88; Pulse 74; Resp 18; Pulse Ox 97% on R/A; rv 01:00 BP 157 / 86; Pulse 74; Resp 17; Pulse Ox 96% on R/A; rv 02:00 BP 153 / 73; Pulse 64; Resp 19; Pulse Ox 96% on R/A; rv 02:30 BP 140 / 74; Pulse 62; Resp 16; Temp 98; Pulse Ox 96% on R/A; rv 09/03 22:52 Body Mass Index 23.24 (53.98 kg, 152.40 cm) rv Nathalia Coma Score: 01:00 Eye Response: spontaneous(4). Verbal Response: oriented(5). Motor Response: obeys rv commands(6). Total: 15. 02:00 Eye Response: spontaneous(4). Verbal Response: oriented(5). Motor Response: obeys rv commands(6). Total: 15. MDM: 05/11 23:03 Patient medically screened. cp 05/11 23:13 Order name: Basic Metabolic Panel; Complete Time: 01:03 cp 05/12 01:04 Interpretation: Normal except: NA 147; CL 111; GLUC 140; BUN 22; CRE 1.84; GFR 26. cp 05/11 23:13 Order name: CBC with Diff; Complete Time: 01:03 cp 05/12 01:04 Interpretation: Normal except: WBC 14.7; VEDA% 89.0; LYM% 4.6; NEUT A 13.1. cp 05/11 23:13 Order name: LFT's; Complete Time: 01:03 cp 05/11 23:13 Order name: Magnesium; Complete Time: 01:03 cp 05/11 23:13 Order name: PT-INR; Complete Time: 01:03 cp 05/11 23:13 Order name: Troponin (emerg Dept Use Only); Complete Time: 01:03 cp 05/11 23:13 Order name: EKG; Complete Time: 23:13 cp 05/11 23:13 Order name: Urine Microscopic Only; Complete Time: 02:28 cp 05/11 23:13 Order name: CT Traumagram (Head C Spine CAP wo con) cp / 23:40 Order name: Manual Differential; Complete Time: 01:03 EDMS 04 01:04 Interpretation: Normal except: SEGS 84; BANDS [F] 4; LYM 5. cp / 01:05 Order name: XRAY Humerus LEFT cp /04 02:05 Order name: Urine Dipstick--Ancillary (enter results); Complete Time: 02:15 mw2 05/11 23:13 Order name: Cardiac monitoring; Complete Time: 23:39 cp 05/11 23:13 Order name: EKG - Nurse/Tech; Complete Time: 23:39 cp 05/11 23:13 Order name: IV Saline Lock; Complete Time: 23:39 cp 05/11 23:13 Order name: Labs collected and sent; Complete Time: 23:39 cp 05/11 23:13 Order name: O2 Per Protocol; Complete Time: 23:39 cp 09/03 23:13 Order name: O2 Sat Monitoring; Complete Time: 23:39 cp 05/11 23:13 Order name: Urine Dipstick-Ancillary (obtain specimen); Complete Time: 02:06 cp 05/12 01:16 Order name: Cath; Complete Time: 01:45 cp EC:55 Rate is 72 beats/min. Rhythm is regular. CA interval is normal. QRS interval is normal. cp QT interval is normal. Interpreted by me. Reviewed by me. Administered Medications: 05/12 02:44 Drug: Cipro 500 mg Route: PO; rv 03:52 Follow up: Response: No adverse reaction rv Disposition: 02:30 Co-signature as Attending Physician, Chava Soria MD. pkl Disposition: 05/12/20 02:33 Discharged to Home. Impression: Contusion left arm. Urinary tract infection. - Condition is Stable. - Prescriptions for Cipro 500 mg Oral Tablet - take 1 tablet by ORAL route every 12 hours for 7 days; 14 tablet. - Medication Reconciliation Form, Thank You Letter, Antibiotic Education, Prescription Opioid Use form. - Follow up: Private Physician; When: 2 - 3 days; Reason: Re-evaluation by your physician. - Problem is new. - Symptoms have improved. Signatures: Dispatcher [employer] EDMS Chava Soria MD MD pkl Thad Levi PA PA cp Vicente, Ronaldo, RN RN rv Corrections: (The following items were deleted from the chart) 02:33 02:33 05/12/2020 02:33 Discharged to Home. Impression: Contusion left arm. Urinary pkl tract infection. Condition is Stable. Forms are Medication Reconciliation Form, Thank You Letter, Antibiotic Education, Prescription Opioid Use. Follow up: Private Physician; When: 2 - 3 days; Reason: Re-evaluation by your physician. Problem is new. Symptoms have improved. pkl 03:53 02:33 05/12/2020 02:33 Discharged to Home. Impression: Contusion left arm. Urinary rv tract infection. Condition is Stable. Forms are Medication Reconciliation Form, Thank You Letter, Antibiotic Education, Prescription Opioid Use. Follow up: Private Physician; When: 2 - 3 days; Reason: Re-evaluation by your physician. Problem is new. Symptoms have improved. pkl
--- NOTE | 2020-05-12 02:34 | ER ---
Nurse's Notes [facility] Name: Maricel Guerrero Age: 79 yrs Sex: Female : 1940 Arrival Date: 05/11/2020 Time: 22:49 Bed 8 Private MD: Diagnosis: Contusion left arm. Urinary tract infection Presentation: 05/11 22:52 Chief complaint: EMS states: PATIENT SLID OUT OF THE WHEELCHAIR, EMS CALLED FOR rv ASSISTANCE. PATIENT WAS COMPLAINING OF LEFT ARM PAIN, DECIDED TO BE SEEN AND CHECKED. DENIES LOC, HIP PAIN, OR HEAD INJURY. Coronavirus screen: Client denies travel out of the [place] in the last 14 days. At this time, the client does not indicate any symptoms associated with coronavirus-19. Ebola Screen: No symptoms or risks identified at this time. Initial Sepsis Screen: Does the patient meet any 2 criteria? No. Patient's initial sepsis screen is negative. Does the patient have a suspected source of infection? No. Patient's initial sepsis screen is negative. Risk Assessment: Do you want to hurt yourself or someone else? Patient reports no desire to harm self or others. Onset of symptoms was May 11, 2020 at 22:00. 22:52 Method Of Arrival: EMS: [facility] rv 22:52 Acuity: WILL 4 rv Triage Assessment: 22:56 General: Appears comfortable, Behavior is calm, cooperative. Pain: Complains of pain in rv left bicep Pain currently is 4 out of 10 on a pain scale. Quality of pain is described as dull. EENT: No signs and/or symptoms were reported regarding the EENT system. Neuro: Level of Consciousness is awake, alert, obeys commands, Oriented to person, place, time, situation. Cardiovascular: Patient's skin is warm and dry. Cardiovascular: Rhythm is sinus rhythm. Respiratory: Airway is patent. Respiratory: Breath sounds are clear bilaterally. Derm: Bruising that is on left bicep RED. Musculoskeletal: Circulation, motion, and sensation intact. Range of motion: intact in all extremities, Swelling absent. Historical: - Allergies: 22: Iodine; rv - PMHx: :56 AAA; Colon Cancer with metastasis to liver; Diabetes - NIDDM; Headaches; Hypertension; rv Hypothyroidism; - PSHx: : None; rv - Immunization history:: Adult Immunizations up to date. - Social history:: Smoking status: Patient reports the use of cigarette tobacco products, smokes one pack cigarettes per day. Screenin:57 Abuse screen: Denies threats or abuse. Denies injuries from another. Nutritional rv screening: No deficits noted. Tuberculosis screening: No symptoms or risk factors identified. Fall Risk None identified. Assessment: 23:37 Reassessment:. rv 05/12 01:00 General: Appears comfortable, Behavior is calm, cooperative. Pain: Complains of pain in rv left bicep. 01:00 Neuro: Level of Consciousness is awake, alert, obeys commands, Oriented to person, rv place, time, situation. 02:30 General: Appears comfortable, Behavior is calm, cooperative. Pain: Denies pain. Neuro: rv Level of Consciousness is awake, alert, obeys commands, Oriented to person, place, time, situation. 02:57 Reassessment: AWAITING FAMILY MEMBER FOR DISCHARGE. rv Vital Signs: 05/11 22:52 BP 130 / 71; Pulse 79; Resp 14; Temp 97.5; Pulse Ox 100% ; Weight 53.98 kg; Height 5 rv ft. (152.40 cm); Pain 4/10; 23:38 BP 138 / 86; Pulse 73; Resp 16; Pulse Ox 98% on R/A; rv 05/12 00:30 BP 138 / 88; Pulse 74; Resp 18; Pulse Ox 97% on R/A; rv 01:00 BP 157 / 86; Pulse 74; Resp 17; Pulse Ox 96% on R/A; rv 02:00 BP 153 / 73; Pulse 64; Resp 19; Pulse Ox 96% on R/A; rv 02:30 BP 140 / 74; Pulse 62; Resp 16; Temp 98; Pulse Ox 96% on R/A; rv 05/11 22:52 Body Mass Index 23.24 (53.98 kg, 152.40 cm) rv New Site Coma Score: 01:00 Eye Response: spontaneous(4). Verbal Response: oriented(5). Motor Response: obeys rv commands(6). Total: 15. 02:00 Eye Response: spontaneous(4). Verbal Response: oriented(5). Motor Response: obeys rv commands(6). Total: 15. ED Course: 05/11 22:49 Patient arrived in ED. cf2 22:52 Min, Tristin, RN is Primary Nurse. rv 22:55 Triage completed. rv 22:57 Arm band placed on right wrist. Patient placed in the treatment room, on a stretcher, rv Patient notified of wait time. 22:57 Patient has correct armband on for positive identification. Bed in low position. Call rv light in reach. Side rails up X2. library monitor on. Pulse ox on. NIBP on. 22:59 Thad Levi PA is PHCP. cp 22:59 Chava Soria MD is Attending Physician. cp 23:17 Inserted saline lock: 22 gauge in left wrist, using aseptic technique. Blood collected. rv 23:17 Initial lab(s) drawn, by me, sent to lab. rv 23:37 Assisted with bedpan. Cleaned of incontinence. Linen changed. One-on-one care X 15 rv minutes. 0904 00:31 CT Traumagram (Head C Spine CAP wo con) In Process Unspecified. EDMS 01:30 XRAY Humerus LEFT In Process Unspecified. EDMS 02:56 No provider procedures requiring assistance completed. IV discontinued, intact, rv bleeding controlled, No redness/swelling at site. Pressure dressing applied. Administered Medications: 02:44 Drug: Cipro 500 mg Route: PO; rv 03:52 Follow up: Response: No adverse reaction rv Outcome: 02:33 Discharge ordered by . pkl 02:57 Discharged to home via wheelchair, with family. rv 02:57 Condition: good 02:57 Discharge instructions given to patient, Instructed on discharge instructions, follow up and referral plans. medication usage, Demonstrated understanding of instructions, follow-up care, medications, Prescriptions given X 1. 03:53 Patient left the ED. rv Signatures: Dispatcher [employer] EDMS Chava Soria MD MD pkl Page, Corey, PA PA cp Vicente, Ronaldo, MORENO RN rv Kori Mao cf2
[2020-05-12] MEDS ORDERED: CIPROFLOXACIN HCL 500 MG TAB ONE (02:51)
--- NOTE | 2020-05-12 09:12 | RAD REPORT ---
EXAM DESCRIPTION: RAD - Humerus Left - 05/12/2020 1:30 am CLINICAL HISTORY: fall from wheelchair Fall, pain COMPARISON: Humerus Left dated 11/09/2018 FINDINGS: Diffuse osteopenia is seen. Bony remodeling of the proximal left humerus is noted likely r elated to prior fracture. No acute fracture demonstrated. No dislocation seen.
--- NOTE | 2020-05-12 09:59 | RAD REPORT ---
EXAM DESCRIPTION: CT Head C Spine Chest Abdomen Pelvis Wo Con CLINICAL HISTORY: 79 years Female fall from wheelchair TECHNIQUE: Contiguous axial CT images obtained through the brain, cervical spine chest, abdomen, and pelvis without IV contrast. Coronal and sagittal reformatted images also provided. This CT exam was performed according to our departmental dose-optimization program, which includes on e or more of the following dose reduction techniques: automated exposure control, adjustment of the m A and/or kV according to patient size, and/or use of iterative reconstruction technique. COMPARISON: No prior exams provided for comparison. FINDINGS: There is no acute skull fracture, intracranial hemorrhage, extraaxial collection, or acute transcortical infarction. Mild chronic microvascular changes and periventricular white matter bilate rally. Moderate, age-appropriate volume loss without mass effect or midline shift The visualized para nasal sinuses, tympanomastoid cavities, and orbits are normal. There is no acute cervical fracture or spondylolisthesis. There is mild multilevel degenerative disc disease with scattered mild multilevel uncovertebral arthrosis and facet arthrosis. No aggressive oss eous lesion. No prevertebral or paraspinal soft tissue swelling. No central canal stenosis at any cer vical level. Mild to moderate scattered multilevel neural foraminal stenoses. There are is no acute fracture in the chest or thoracic spine. Chronic mild T10 compression deformity . Healed left humeral neck fracture. Prior median sternotomy. There is no mediastinal hematoma, pericardial effusion, pleural effusion, or pneumothorax. The heart is normal in size. There is atherosclerosis without thoracic aortic aneurysm. Evidence of prior granulomatous disease in the chest without focal airspace consolidation, pleural ef fusion, or pneumothorax. No enlarged mediastinal lymph nodes. The central airways are patent. There are no acute lumbar or pelvic fractures. Prior right hip arthroplasty. Extensive atherosclerosis with dilatation of the infrarenal abdominal aorta measuring up to 3.5 cm. N o retroperitoneal hemorrhage. Calcified granulomata in the spleen without laceration. The unenhanced liver, biliary tree, gallbladder, pancreas, adrenal glands, kidneys, and urinary bladd er demonstrate no acute findings. No free intraperitoneal air or ascites. There is no bowel obstruction or wall thickening. IMPRESSION: No acute injury in the head, cervical spine, chest, abdomen, or pelvis. Chronic microvascular changes and volume loss in the brain. Chronic degenerative changes in the cervical spine. Chronic posttraumatic changes in the left humerus and thoracic spine. No acute findings in the chest. Diffuse atherosclerosis. 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 No evidence of rupture. This should be followed up every two years. No other acute findings in the abdomen or pelvis. Electronically signed by: Susannah Herrera MD 05/12/2020 12:53 AM CDT Due to temporary technical issues with the PACS/Fluency reporting system, reports are being signed by the in house radiologist without review as a courtesy to ensure prompt reporting. The interpreting r adiologist is fully responsible for the content of the report.
--- NOTE | 2020-05-12 11:11 | EKG ---
Test Date: 2020-05-11 Test Time: 23:51:56 Lead Relay Tester: RV MEASUREMENT RESULTS: Intervals: Rate: 72 SC: 124 QRSD: 84 QT: 412 QTc: 451 Nichols: P: 70 SC: 124 QRS: 13 T: 35 INTERPRETIVE STATEMENTS: Normal sinus rhythm Junctional ST depression, probably normal Borderline ECG Compared to ECG 08/06/2019 11:45:30 No significant changes Electronically Signed On 05-12-20 11:10:12 CDT by Joe Molina
[2020-05-13 15:44] VITALS: O2SAT 96
[2020-05-13 15:47] VITALS: BP 140/74; TEMP 98
== END 2020-05-12 03:53 | disposition home or self-care (01) ==
LOC: ER 22:47
DX: S40.022A Contusion of left upper arm, initial encounter (principal); N39.0 Urinary tract infection, site not specified; W05.0XXA Fall from non-moving wheelchair, initial encounter; Y93.9 Activity, unspecified; Y92.9 Unspecified place or not applicable; I10 Essential (primary) hypertension; F17.210 Nicotine dependence, cigarettes, uncomplicated; Z91.048 Other nonmedicinal substance allergy status
CPT/HCPCS: 93005; 85025; 80048; 36415; 83735; 85610; 80076; 84484; 70450; 71250; 72125; 73060; 99285; J7040; 81003; 81015

== ENCOUNTER 2020-06-20 15:59 | Emergency (ER) | payer OTHER ==
--- OUTSIDE RECORDS SUMMARY | 2020-06-20 16:03 | XMS REPORT | Clinical Summary ---
:1940 Author Organization [facility] [employer] Address [address] [place] [id number] Care Team Providers Name Role Phone Asked, [...] mouth. Active Problems No known active problems Surgical History Surgery Date Site/Laterality Comments HIP SURGERY CORONARY ARTERY BYPASS GRAFT 05/09/2017 - 06/07/2017 2 vessels CARDIAC CATHETERIZATION 09/08/2008 - 09/07/2009 AA A repair Medical History Medical History Date Comments Anemia Asthma COPD (chronic obstructive pulmonary disease) (HCC) Diabetes mellitus (HCC) Diverticulosis Weight loss PAD (peripheral artery disease) (HCC) Hyperlipidemia Uses walker NSTEMI (non-ST elevated myocardial 2017 had 2 vessel CABG infarction) (HCC) CAD (coronary artery disease) Liver mass 2018 unable to have biops y, clearance noted 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/18 Social History Tobacco Use Types Packs/Day Years Used Date Former Smoker 1 Quit: 09/08/19 Smokeless Tobacco: Never Used Alcohol Use Drinks/Week oz/Week Comments No Sex Assigned at Date Recorded Not on file Last Filed Vital Signs Not on file Plan of Treatment Health Maintenance Due Date Last Done Comments DIABETIC RETINAL EYE EXAM 1940 DIABETIC FOOT EXAM 1950 URINE MICROALBUMIN 1950 SHINGLES VACCINES (#1) 1990 65+ PNEUMOCOCCAL VACCINE (1 of 1 - PPSV23) 2005 INFLUENZA VACCINE 04/08/2020 Results Not on fileafter 06/20/2019 Insurance Payer Benefit Plan / Subscriber ID Effective Dates Phone Addre ss Type Group MEDICARE MEDICARE PART A [id number] 2005-Present [place], [place] Medicare AND B FOR LIFE [id number] 2017-Present [facility] SU[facility] Advance Directives For more information, please contact: [phone] Type Date Recorded 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
--- OUTSIDE RECORDS SUMMARY | 2020-06-20 16:03 | XMS REPORT | Clinical Summary ---
:1940 Author Organization [employer] Address [address] [place] [address] Care Team Providers Name Role Phone Sharpshahbaz Primary Care Provider [facility] Unavailable Allergies Active Allergy Reactions Severity Noted [...] MOUTH DAILY MG tablet metoprolol (TOPROL-XL) TAKE 09/09 30 tablet 0 07/25/2017 Active 25 MG [...] Signs Not on file Plan of Treatment Not on file Results Not on fileafter 06/20/2019 Insurance Payer Benefit Plan / Subscriber ID Effective Dates Phone Addre ss Type Group MEDICARE MEDICARE A B [id number] 2005-Present Medicare FOR LIFE [id number] Effective for all Other Govt dates (, [place], [place], etc .) Advance Directives For more information, please contact: [phone] Code Status Date Activated Date Inactivated Comments Full Code 05/22/2017 5:29 PM 05/28/2017 5:07 PM This code status was determined by: Patient Name Relationship Healthcare Agent Relationship Co mmunication Sindy Iraheta Sister [facility] Health Care Agen t
--- OUTSIDE RECORDS SUMMARY | 2020-06-20 16:08 | XMS REPORT | Continuity of Care Document ---
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 [facility] Medical disease, Center unspecified COLON CA Active [address] PELVIC ABSCESS Active [address] Center Perforation of 10/08/2018 [facility] exas intestine 018 Medical (nontraumatic) Cente r GI BLEED Active [address] DIVERTICULITIS Active [address] Center Diverticulosis of 02/04/2018 [facility] large intestine 018 Medi ana without perforation Center or abscess without bleeding ABNORMAL IMAGING Active [address] Essential (primary) 03/08/2018 [facility] hypertension [facility] 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 Med ical [place] coronary Cent er artery without angina pectoris 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 Acute kidney 03/08/2018 Arnel as failure, Medical unspecified Center Hyperlipidemia, 03/08/2018 [facility] Hypothyroidism, 10/08/2018 [facility] Nicotine 03/08/2018 [facility] dependence, Medical unspecified, Center uncomplicated Liver disease, 10/08/2018 [facility] Elevated white 10/08/2018 [facility] blood cell count, Me dical unspecified Center alf (current) 03/08/2018 [facility] use of oral Medical hypoglycemic drugs C enter 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/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 Medic al therapy Center Urinary tract 10/08/2018 Derrell cotter infection, site not Medical specified Center Unspecified 10/08/2018 [facility] suggs protein-calorie Medi ana malnutrition Center Type 2 diabetes 10/08/2018 [facility] mellitus with Medica l diabetic chronic Jimmy ter kidney disease Emphysema, 10/08/2018 [facility] Anemia, unspecified 10/08/2018 [facility] Center Unspecified 10/08/2018 [facility] dementia without Med ical behavioral Center disturbance Chronic kidney 10/08/2018 [facility] exas disease, Medical unspecified Center rn long term care (current) 10/08/2018 [facility] use of aspirin Medic al Center Personal history of 10/08/2018 [facility] other diseases of Me dical the circulatory Cent er system Body mass index 10/08/2018 [facility] (BMI) 21.0-21.9, Med ical adult Center DVTRCLI OF INTEST, Active M [facility] [place] PART UNSP, W/O PERF Medical O Center FEMALE PELVIC Active Arnel as INFLAMMATORY Medical DISEASE, [facility] Center Medications Medication Details Route Status Patient Ordering Order Source Instructions Provider Date Memantine 10 mg = 1 tab, Active 06/23/ Mischer hydrochloride 10 PO, BID, # 60 2019 N euro MG Oral Tablet tab, 6 Refill(s), [Namenda] [facility] donepezil 10 mg = 1 tab, PO, Active 04/08/ Mis jenny oral tablet Daily, # 30 tab, 2019 Ceci ro 3 Refill(s), Pharmacy: [id number] Memantine 10 mg = 1 tab, Active 04/08/ Mischer hydrochloride 10 PO, BID, # 60 2019 N euro MG Oral Tablet tab, 6 Refill(s), [Namenda] Pharmacy: [id number] donepezil 10 mg = 1 tab, PO, No Longer 03/30/ M ischer oral tablet Daily, # 30 tab, Active 2018 Ceci ro 3 Refill(s), [facility] donepezil 10 mg = 1 tab, [...] Jug., # 1 ea, 0 Refill(s), Pharmacy: [facility] [id number] ciprofloxacin 500 500 mg = 1 tab, [...] 500 mg = 1 tab, Inactive 11/30 [facility] mg oral tablet PO, Q12H, X 8 2018 Med ical day, # 16 tab, 0 Center Refill(s) heparin Notes: porcine [place]er [place] heparin Active 2018 [facility] Center NS (Bolus) IV 1,000 mL, 500 Inactive [place] ml/hr, Infuse 2018 Medical Over: 2 hr, Center Route: IV, 1,000, Drug form: INJ, ONCE, Priority: STAT, Dosing Weight 54.602 kg, Start date: 11/29/17 11:48:00 CDT, Stop date: 11/29/17 11:48:00 CDT Tramadol Notes: Not to [place]er [place] exceed 400mg/day. Active 2018 Medica l (Same As: Ultram) [place] Tylenol Notes: Do not No Longer [place] exceed 4 gm/day. Active 2018 Medical (Same as: North Tylenol) Midazolam 1 mg, Route: IVP, Inactive [place] Drug form: INJ, 2018 Medical ONCE, Dosing Center Weight 54.602, kg, Start date: 11/28/17 14:30:00 CDT, Stop date: 11/28/17 14:30:00 CDT Fentanyl 50 microgram, Inactive [facility] Route: IVP, Drug 2017 Medical form: INJ, ONCE, Center Dosing Weight 54.602, kg, Start date: 11/28/17 14:30:00 CDT, Stop date: 11/28/17 14:30:00 CDT metoprolol Notes: (Same as: No Longer [place] Toprol XL) Do Not Active [address] [facility] Hemocyte Plus Notes: Inactive [facility] Non-Formulary 2018 [facility] Lisinopril Notes: 1.25 mg = No Longer [facility] 1/ x 2.5 mg TAB Active 2018 Medical (Same as: North Prinivil) Multigen Folic Notes: Same as No Longer [place] Iron/C/B12/FA/SA Active 2018 [facility] Furosemide 20 MG Notes: (Same as: No Longer 11/07 [place] Oral Tablet Lasix) May cause Active 2017 Me dical [Lasix] GI upset. Give Center with food or milk. Lexapro Notes: (Same as: [place] Lexapro) Active [address] [place] [address] donepezil Notes: (Same as: No Longer [facility] Aricept) Active [address] [place] [address] metoprolol 25 mg metoprolol 25 mg No Longer 11/07 [place] oral tablet, oral tablet, Active 2017 Medica l extended release extended release, North 25 mg, Route: PO, Daily, 11/28/17 9:00:00 CDT, Duration: 30 day, Stop date: 12/27/17 9:00:00 CDT Thyroxine Notes: Take 1 No Longer [place] as hour before or 2 Active [facility] Medical hours after meal; Center Enteral feeds may interefere with the absorption of this medication. (Same as:Levothroid) Remeron Notes: (Same No Longer [facility] as:Remeron) Active [address] [place] [address] atorvastatin Notes: (Same as: No Longer [facility] Lipitor) Active [address] [place] [address] Flagyl 500 mg, 100 mL, No Longer [place] as Route: IVPB, Drug Active 2017 Medica l form: INJ, North [id number], Dosing Weight 54.602, kg, Start date: 11/27/17 19:00:00 CDT, Duration: 7 day, Stop date: 12/04/17 3:30:00 CDT, ABX Indication: Intra-abdominal Infection 200 ML 400 mg, 200 mL, No Longer Arnel as Ciprofloxacin 2 Route: IVPB, Drug Active 2017 Medical MG/ML Injection form: INJ, Cente r [id number], Dosing Weight 54.602, kg, Start date: 11/27/17 19:00:00 CDT, Duration: 7 day, Stop date: 12/04/17 7:00:00 CDT, ABX Indication: Intra-abdominal Infection Docusate Notes: (Same as: [place] Longer [place] Colace) (Do Not Active 2017 Medical Crush) Center Megestrol Acetate Notes: (Same as: No Longer [facility] 40 MG Oral Tablet Megace) WASTE: Active 2018 Medical F/P - Black; E - Center Yellow Dextrose 50% 25 gm, 50 mL, No Longer [place] Syringe Route: IVP, Drug Active 2018 Medical [...] Insulin Lispro Notes: (Same as: No Longer [place] Humalog ) Roll in Active 2018 Medica l palms of hands Center gently; Do not shake `vigorously. "Single Patient Use Only " WASTE: F/P - Black; E - Municipal Trash Bin Stable for 28 days at room temperature. Expires in days from Dat e Ondansetron Notes: (Same as: No Longer [facility] Zofran) Active 2018 Medical Center [...] Nicotine = 1 patch, TOP, No Longer [facility] 0.583 MG/HR Daily, X 30 day, Active 2017 Med ical Transdermal Patch # 30 patch, 0 North [Habitrol] Refill(s) Aspirin 81 MG Notes: Take with No Longer [facility] Chewable Tablet food. Active 2018 [facility] remove patch Notes: Remove old No Longer [facility] patch before Active 2018 Medical application of North new patch. WASTE: F/P - P Waste Black; E - P Waste Black iodixanol Notes: (Same as: No Longer [facility] Visipaque). Active 2017 Medical WASTE: F/P - Center Black; E - Municipal Trash Bin Diphenhydramine Notes: (Same as: Inactive [facility] Benadryl) 2018 [facility] Prednisone Notes: (Same as: Inactive [facility] PredniSONE) Take 2018 Medica l with food. North Prednisone Notes: (Same as: Inactive [facility] PredniSONE) Take 2018 Medica l with food. 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 North 24 HR Nicotine = 1 patch, [place] Longer [place] 0.875 MG/HR Transdermal, Active 2017 Medical Transdermal Patch Daily, 0 Cente r Refill(s) Megestrol Acetate 40 mg = 1 tab, Active [place] 40 MG Oral Tablet PO, BID, 0 2017 Med ical Refill(s) North zolpidem 5 mg 5 mg = 1 tab, PO, No Longer [facility] oral tablet PRN, 0 Refill(s) Active 2017 [facility] Hemocyte Plus 1 cap, PO, Daily, Active [facility] 0 Refill(s) [address] [place] [address] ondansetron 4 mg 4 mg = 1 tab, PO, Active 11/11 [facility] oral tablet PRN, 0 Refill(s) 2018 [facility] Nicotine Notes: (Same as: [place] Longer [place] Habitrol) "Remove Active 2018 Medica l old patch before Center application of new patch" WASTE: F/P - P Waste Black; E - P Waste Black 24 HR Metoprolol 25 mg, 1 tab, No Longer [facility] Tartrate 25 MG Route: PO, Drug Active 2017 edical Extended Release form: ERTAB, Ce nter Tablet [Toprol] Daily, Start date: 11/11/17 9:00:00 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 Give Center with food or milk. Lexapro Notes: (Same as: [place] Lexapro) Active [address] [place] [address] donepezil Notes: (Same as: No Longer [facility] Aricept) Active [address] [place] [address] heparin Notes: porcine [place] heparin Active [address] [place] [address] Thyroxine Notes: Take 1 No Longer Arnel as hour before or [address] [place] [address] hours after meal; Center Enteral feeds may interefere with the absorption of this medication. 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, Duration: 30 day, Stop date: 12/11/17 1:24:00 CDT Mirtazapine 30 MG 30 mg = 1 tab, No Longer 11/11 [place] Oral Tablet PO, Bedtime, # 30 Active 2017 Pr dical [Remeron] tab, 0 Refill(s) Cente r metoprolol 25 mg 25 mg = 1 tab, Active [facility] oral tablet, PO, Daily, # 30 2018 Med ical extended release tab, 0 Refill(s) [place] Metformin 500 mg, PO, BID, [place] 0 Refill(s) 2018 [facility] Lisinopril 2.5 mg, PO, Active [place] Daily, 0 2018 Medical Refill(s) [place] atorvastatin 40 40 mg = 1 tab, Active H [place] mg oral tablet PO, Bedtime, # 30 2018 Medical tab, 0 Refill(s) North Escitalopram 10 10 mg = 1 tab, Active H [place] MG Oral Tablet PO, Daily, # 30 2018 edical [Lexapro] tab, 0 Refill(s) Cente r levothyroxine 25 25 microgram = 1 Active [facility] mcg (0.025 mg) tab, PO, Daily, # 2018 Medical oral tablet 30 tab, 0 Center Refill(s) Furosemide 20 MG 20 mg = 1 tab, Active [facility] Oral Tablet PO, PRN, # 30 2018 Medica l [Lasix] tab, 0 Refill(s) North donepezil 10 mg 10 mg = 1 tab, No Longer [facility] oral tablet PO, Daily, # 30 Active 2018 [facility] ana tab, 0 Refill(s) Center clopidogrel 75 MG 75 mg = 1 tab, No Longer 11/11 [facility] Oral Tablet PO, Daily, # 30 Active 2018 Medi ana [Plavix] tab, 0 Refill(s) Center Aspirin 81 mg, PO, Daily, No Longer [place] 0 Refill(s) Active 2018 [facility] Isolyte S PH 7.4 Notes: (Same as: No Longer [facility] 1,000 mL Isolyte S PH 7.4) Active 2018 Medic al Center Flagyl Notes: (Same as: [place] Flagyl) Avoid Active 2018 [facility] alcohol. Center Ciprofloxacin Notes: Do not No Longer [facility] refrigerate Active [address] [place] [address] Docusate Sodium Notes: (Same as: No Longer 11/11 [facility] 100 MG Oral Colace) (Do Not Active 2018 [facility] Capsule Crush) Center Allergies, Adverse Reactions, Alerts Substance Category Reaction Severity Reaction Status Date Comments S ource type Reported azithromycin Assertion Drug Active M ischer allergy Neuro iodine Assertion Drug Active Mische r allergy Neuro Immunizations No Data Provided for This Section Results Order Name Results Value Reference Date Interpretation Comments Luis A rce Range HEMATOLOGY Plav Effect 90 07/ [facility] [address] HEMATOLOGY ASA Effect 389 / [facility] [address] CHEM PANEL eGFR 48 03/13 [facility] Comment: The Medical eGFR is Center [...] Calcium Lvl 9.5 8.5 - 10.5 07 [facility] CHEM PANEL CO2 24 24 - [address] CHEM PANEL Sodium Lvl 149 135 - 145 07/ [address] CHEM PANEL Chloride Lvl 113 95 - 109 07 [facility] CHEM PANEL Potassium Lvl 4.3 3.5 - 5.[address] CHEM PANEL BUN 15 7 - [address] CHEM PANEL Creatinine 1.12 0.50 - 07 [facility] Lvl 1.40 /2017 [facility] CHEM PANEL Glucose Lvl 87 70 - [address] CHEM PANEL AGAP 16.3 10.0 - 0706 [facility] 20.0 [facility] HEMATOLOGY Eosinophils # 0.2 0.0 - 0.5 07 [facility] HEMATOLOGY Monocytes # 0.7 0.0 - 0.8 07 [facility] HEMATOLOGY Lymphocytes 26.5 20.0 - 07 [place] 40.0 [facility] HEMATOLOGY Segs-Bands # 4.4 1.5 - 8.1 03/13 [facility] HEMATOLOGY Segs 60.6 45.0 - 07 [place] 75.0 [facility] HEMATOLOGY Lymphocytes # 1.9 1.0 - 5.[address] HEMATOLOGY Monocytes 9.9 2.0 - 12.[address] HEMATOLOGY Eosinophils 2.5 0.0 - 4.0 07/ [facility] [address] [place] [address] HEMATOLOGY Basophils 0.5 0.0 - 1.0 07/ [address] HEMATOLOGY Platelet 145 133 - [address] HEMATOLOGY RDW 18.7 11.5 - 07 [facility] 14.5 [facility] HEMATOLOGY MPV 10.6 7.4 - 10.[address] HEMATOLOGY MCH 29.5 27.0 - 07 [place] 31.0 [facility] HEMATOLOGY MCHC 32.3 32.0 - 07 [facility] 36.0 [facility] HEMATOLOGY MCV 91.4 80.0 - 03/13 [facility] 98.0 [facility] HEMATOLOGY WBC 7.3 3.7 - 10.4 03/[address] HEMATOLOGY RBC 4.21 4.20 - 03/13 [facility] 5.40 /2017 [facility] HEMATOLOGY Hgb 12.4 12.0 - 03/13 [facility] 16.0 [facility] HEMATOLOGY Hct 38.4 36.0 - 03/13 [facility] 48.0 [facility] HEMATOLOGY TEG Data See Note 03/13 [facility] (03/13/18 3:45 PM) [facility] HEMATOLOGY Angle 73.0 53.0 - 03/13 [facility] 72.0 [facility] HEMATOLOGY Coag Index 3.1 -3.0-3.0 - 03/13 [facility] 3.0 [facility] HEMATOLOGY G-value 11.8 4.5 - 11.0 03/[address] HEMATOLOGY Ly30 0.2 0.0 - 7.5 03/[address] HEMATOLOGY R-time 4.3 5.0 - 10.0 03/[address] HEMATOLOGY K-time 1.1 1.0 - 3.0 03/[address] HEMATOLOGY Max Amp 70.2 50.0 - 03/13 [facility] 70.0 [facility] HEMATOLOGY TEG Interp Thrombelas 03/13 [place] [facility] show shortened value of R and increased value of Angle Alpha. These findings are suggestive of enzymatic hypercoagu lation. CPT:83235 SPECIAL Hgb A1C 5.4 <=5.6 % 03/13 [facility] CHEMISTRY [facility] ELECTROLYTE AGAP 12.6 10.0 - 11/30 [facility] S 20.0 [facility] ELECTROLYTE CO2 26 24 - 32 11/30 [facility]2017 [facility] ELECTROLYTE Calcium Lvl 8.7 8.5 - 10.5 11/30 [place] [facility] ELECTROLYTE Potassium Lvl 3.6 3.5 - 5.1 11/30 [place] [facility] ELECTROLYTE Chloride Lvl 111 95 - 109 11/30 Arnel as S [facility] ELECTROLYTE eGFR 68 03/25 Result [facility] Comment: The Medical eGFR is Center [...] ELECTROLYTE BUN 7 7 - 22 11/30 [facility]2017 [facility] ELECTROLYTE Creatinine 0.83 0.50 - 11/30 [facility] S Lvl 1.40 /[address] [place] [address] ELECTROLYTE Sodium Lvl 146 135 - 145 11/30 [place] [facility]2017 [facility] ELECTROLYTE Glucose Lvl 103 70 - 99 11/[address] CHEM PANEL Magnesium Lvl 2.1 1.8 - 2.4 11/29 [place] [facility] CHEM PANEL Phosphorus 3.2 2.5 - 4.5 11/[address] ELECTROLYTE AGAP 12.3 10.0 - 11/29 [facility] S 20.0 [facility] ELECTROLYTE eGFR 48 11/29 Result [facility] Comment: The [facility] eGFR is Center calculated using the CKD-EPI [...] Chloride Lvl 108 95 - 109 11/29 [facility] ELECTROLYTE Glucose Lvl 115 70 - 99 11/[address] ELECTROLYTE Creatinine 1.12 0.50 - 11/29 [facility] S Lvl 1.40 [facility] ELECTROLYTE Sodium Lvl 143 135 - 145 11/29 [facility]2017 [facility] ELECTROLYTE Potassium Lvl 3.3 3.5 - 5.1 11/29 [facility] ELECTROLYTE BUN 11 7 - 22 11/[address] ELECTROLYTE Calcium Lvl 8.7 8.5 - 10.5 11/[address] ELECTROLYTE CO2 26 24 - 32 11/[address] HEMATOLOGY Eosinophils # 0.2 0.0 - 0.5 11/[address] HEMATOLOGY Lymphocytes # 2.6 1.0 - 5.5 11/[address] HEMATOLOGY Monocytes # 1.4 0.0 - 0.8 11/29 [facility]2017 [facility] HEMATOLOGY Segs 65.1 45.0 - 11/29 [facility] 75.0 [facility] HEMATOLOGY Eosinophils 1.9 0.0 - 4.0 11/29 [facility]2017 [facility] HEMATOLOGY Basophils 0.4 0.0 - 1.0 11/[address] HEMATOLOGY Segs-Bands # 7.9 1.5 - 8.1 11/29 [facility] HEMATOLOGY Lymphocytes 21.2 20.0 - 11/29 [facility] 40.0 [facility] HEMATOLOGY Monocytes 11.4 2.0 - 12.0 11/[address] HEMATOLOGY MPV 9.3 7.4 - 10.4 11/[address] HEMATOLOGY MCH 24.8 27.0 - 11/29 [facility] 31.0 [facility] HEMATOLOGY Hct 31.6 36.0 - 11/29 [place] 48.0 [facility] HEMATOLOGY MCV 79.5 80.0 - 03/24 [facility] 98.0 [facility] HEMATOLOGY Platelet 347 133 - 450 11/29 [facility] HEMATOLOGY MCHC 31.2 32.0 - 11/29 [facility] 36.0 [facility] HEMATOLOGY RDW 20.5 11.5 - 11/29 [facility] 14.5 [facility] HEMATOLOGY WBC 12.1 3.7 - 10.4 11/29 [facility] HEMATOLOGY RBC 3.97 4.20 - 11/29 [facility] 5.40 [facility] HEMATOLOGY Hgb 9.8 12.0 - 11/29 [place] 16.0 [facility] PARATHYROID Ca Ion WB 1.17 1.05 - 11/29 [facility] PROFILE 1. [facility] PARATHYROID Ca Norm WB 1.16 1.05 - 11/29 [facility] PROFILE 1. [facility] CIPROFLOXAC Gram Stain Gram Stain 11/28 Arnel as [place]:SUSC:PT: Report Performed Medical ISOLATE:ORD By: Center QN:SRINIVAS [facility] CIPROFLOXAC Culture: Many Staphylococcus Species, Not S. aureus 11/28 [facility] IN:SUSC:PT: Aspirate/Body Many Staphylococcus Species, Not S. aureus # Medical ISOLATE:ORD Fluid/Tissue Few Enterococcus Species [place] QN:SRINIVAS CIPROFLOXAC Enterococcus Enterococc 11/28 [place]:SUSC:PT: Species us Species /2017 Medical ISOLATE:ORD Center QN:SRINIVAS CHEM PANEL Phosphorus 2.8 2.5 - 4.5 11/28 [facility] CHEM PANEL Magnesium Lvl 2.2 1.8 - 2.4 11/28 [place] [facility] CHEM PANEL eGFR 71 11/28 Result [...] Glucose Lvl 63 70 - 99 11/28 [facility]2017 [facility] CHEM PANEL BUN 10 7 - 22 11/[address] CHEM PANEL Calcium Lvl 8.3 8.5 - 10.5 11/28 [facility] CHEM PANEL AGAP 12.5 10.0 - 11/28 [facility] 20.0 [facility] CHEM PANEL Creatinine 0.80 0.50 - 11/28 [place] Lvl 1.40 [facility] CHEM PANEL Sodium Lvl 143 135 - 145 11/[address] CHEM PANEL CO2 25 24 - 32 11/[address] CHEM PANEL Chloride Lvl 109 95 - 109 11/28 [facility]2017 [facility] CHEM PANEL Potassium Lvl 3.5 3.5 - 5.1 11/28 [facility] HEMATOLOGY Segs 72.9 45.0 - 11/28 [facility] 75.0 [facility] HEMATOLOGY Segs-Bands # 9.0 1.5 - 8.1 11/28 [facility] HEMATOLOGY Microcyte 1+ None Seen 11/28 [facility] *ABN* /2017 [facility] (11/28/17 3:05 AM) [facility] HEMATOLOGY Monocytes # 1.5 0.0 - 0.8 11/28 [facility] HEMATOLOGY Lymphocytes # 1.7 1.0 - 5.5 11/28 [facility] HEMATOLOGY Eosinophils # 0.2 0.0 - 0.5 11/[address] HEMATOLOGY Basophils 0.4 0.0 - 1.0 11/[address] HEMATOLOGY Eosinophils 1.3 0.0 - 4.0 11/28 [facility]2017 [facility] HEMATOLOGY Monocytes 11.9 2.0 - 12.0 11/[address] HEMATOLOGY Lymphocytes 13.5 20.0 - 11/28 [place] 40.0 [facility] HEMATOLOGY MCH 24.7 27.0 - 11/28 [place] 31.0 [facility] HEMATOLOGY MCV 78.2 80.0 - 11/28 [place] 98.0 [facility] HEMATOLOGY Hct 25.4 36.0 - 11/28 [place] 48.0 [facility] HEMATOLOGY Hgb 8.0 12.0 - 11/28 [place] 16.0 [facility] HEMATOLOGY MPV 9.5 7.4 - 10.4 11/28 [facility] HEMATOLOGY Platelet 255 133 - 450 11/28 [facility] HEMATOLOGY RDW 20.6 11.5 - 11/28 [place] 14. [facility] HEMATOLOGY RBC 3.25 4.20 - 11/28 [place] 5.40 /2017 [facility] HEMATOLOGY WBC 12.3 3.7 - 10.4 11/28 [facility] HEMATOLOGY MCHC 31.6 32.0 - 11/28 [place] 36.0 [facility] PARATHYROID Ca Ion WB 1.13 1.05 - 11/28 [place] PROFILE 1. [facility] PARATHYROID Ca Norm WB 1.13 1.05 - 11/28 [place] PROFILE 1. [facility] HEMATOLOGY Monocytes # 1.6 0.0 - 0.8 11/27 [place] [facility] HEMATOLOGY Lymphocytes # 1.0 1.0 - 5.5 11/27 [place] [facility] HEMATOLOGY Eosinophils # 0.1 0.0 - 0.5 11/27 [place] [facility] HEMATOLOGY Lymphocytes 6.3 20.0 - 11/27 [place] 40.0 [facility] HEMATOLOGY Segs 83.3 45.0 - 11/27 [place] 75.0 2018 [facility] HEMATOLOGY Segs-Bands # 13.8 1.5 - 8.1 11/27 [place] [facility] HEMATOLOGY Eosinophils 0.7 0.0 - 4.0 11[place] [facility] HEMATOLOGY Monocytes 9.6 2.0 - 12.0 11/27 [facility] HEMATOLOGY Basophils 0.1 0.0 - 1.0 11/27 [facility] HEMATOLOGY Platelet 242 133 - 450 11/27 [facility] HEMATOLOGY RDW 20.7 11.5 - 11/27 [place] 14. [facility] HEMATOLOGY MCHC 31.5 32.0 - 11/27 [place] 36.0 /2017 [facility] HEMATOLOGY MPV 9.2 7.4 - 10.4 11/27 [place] /[address] [place] [address] HEMATOLOGY WBC 16.5 3.7 - 10.4 11/27 [place] /2018 [facility] HEMATOLOGY MCH 25.2 27.0 - 11/27 [place] 31.0 /2017 [facility] HEMATOLOGY MCV 79.9 80.0 - 11/27 [place] 98.0 /2017 [facility] HEMATOLOGY Hct 25.0 36.0 - 11/27 [place] 48.0 /2018 [facility] HEMATOLOGY Hgb 7.9 12.0 - 11/27 [place] 16.0 /2017 [facility] HEMATOLOGY RBC 3.13 4.20 - 11/27 [place] 5.40 /2017 [facility] CHEM PANEL Lactic Acid 0.9 0.5 - 2.2 11[place]2017 [facility] Culture: 10,000 - 11/27 [facility] Urine 50,000 /2017 [facility] CFU/mL Center Skin [place] URINE AND UA RBC 3-5 /HPF 0 - 2 11/27 [facility] STOOL /[address] [place] [address] URINE AND UA Bacteria Many /HPF None Seen 11/27 [place] STOOL /HPF /[address] [place] [address] URINE AND UA WBC 21-50 /HPF None Seen 11/27 [facility] STOOL /HPF /[address] [place] [address] URINE AND UA Sq Epi Moderate Few /LPF 11/27 [facility] STOOL /LPF /[address] [place] [address] URINE AND UA Protein 30 mg/dL Negative 11/27 [facility] mg/dL /[address] [place] [address] URINE AND UA Blood Moderate Negative 11/27 [facility] STOOL *ABN* /2017 [facility] (11/27/17 3:42 AM) [facility] URINE AND UA 0.2 0.1 - 1.0 11/27 [facility] Urobilinogen /[address] [place] [address] URINE AND UA Leuk Est Large Negative 11/27 [facility] STOOL *ABN* /2017 [facility] (11/27/17 3:42 AM) [facility] URINE AND UA Nitrite Negative Negative 11/27 [facility] (11/27/17 3:42 AM) /2018 [facility] URINE AND UA Bili Negative Negative 11/27 [facility] STOOL *NA* /2017 [facility] (11/27/17 3:42 AM) [facility] URINE AND UA Ketones Negative Negative 11/27 [facility] STOOL *NA* /2017 [facility] (11/27/17 3:42 AM) [facility] URINE AND UA Glucose Negative Negative 11/27 [facility] STOOL (11/27/17 3:42 AM) /2017 [facility] URINE AND UA Spec Grav 1.020 <=1.030 11/27 [facility] /[address] [place] [address] URINE AND UA Turbidity Cloudy Clear 11/27 [facility] STOOL *ABN* /2017 [facility] (11/27/17 3:42 AM) [facility] URINE AND UA Color Yellow Yellow 11/27 [facility] STOOL *NA* /2017 [facility] (11/27/17 3:42 AM) [facility] URINE AND UA pH 7.5 5.0 - 8.0 11/27 [facility] [address] [place] [address] CARDIAC Troponin-I <0.02 0.00 - 11/27 [facility] ENZYMES 0.40 [facility] CHEM PANEL Lipase Lvl 71 73 - 393 11/[address] CHEM PANEL Bili Indirect 0.1 0.0 - 1.0 11/27 [facility] CHEM PANEL Bili Total 0.2 0.2 - 1.3 11/[address] CHEM PANEL Bili Direct 0.1 0.0 - 0.3 11/27 [facility] [address] [place] [address] CHEM PANEL Alk Phos 66 39 - 136 11/[address] CHEM PANEL ALT 12 0 - 65 11/[address] CHEM PANEL AST 19 0 - 37 11/[address] CHEM PANEL Total Protein 6.1 6.4 - 8.4 11/27 [facility] [address] [place] [address] CHEM PANEL Albumin Lvl 2.0 3.5 - 5.0 11/[address] CHEM PANEL A/G Ratio 0.5 0.7 - 1.6 11/[address] CHEM PANEL Globulin 4.1 2.7 - 4.2 11/[address] HEMATOLOGY Microcyte 1+ None Seen 11/27 [place] *ABN* /2017 [facility] (11/27/17 2:25 AM) [facility] HEMATOLOGY Basophils # 0.1 0.0 - 0.2 11/[address] HEMATOLOGY PTT 25.8 22.9 - 11/27 [place] 35.8 [facility] HEMATOLOGY INR 1.17 0.85 - 11/27 [facility] 1.17 [facility] HEMATOLOGY PT 15.0 12.0 - 11/27 [facility] 14.7 [facility] CHEM PANEL eGFR 62 11/14 Result [...] Chloride Lvl 107 95 - 109 11/14 [facility] CHEM PANEL Potassium Lvl 3.2 3.5 - 5.1 11/14 [facility] CHEM PANEL CO2 30 24 - 32 11/[address] CHEM PANEL Calcium Lvl 8.2 8.5 - 10.5 11/14 [facility] CHEM PANEL Sodium Lvl 146 135 - 145 11/14 [facility]2017 [facility] CHEM PANEL Creatinine 0.90 0.50 - 11/14 [facility] Lvl 1.40 [facility] CHEM PANEL BUN 11 7 - 22 11/[address] CHEM PANEL Glucose Lvl 95 70 - 99 11/14 [facility] CHEM PANEL AGAP 12.2 10.0 - 03 [facility] 20.0 [facility] HEMATOLOGY Anisocyte 1+ None Seen 11/14 [facility] *ABN* /2017 [facility] (11/14/17 3:40 AM) [facility] HEMATOLOGY Monocytes # 0.9 0.0 - 0.8 11/14 [facility] HEMATOLOGY Eosinophils # 0.1 0.0 - 0.5 11/14 [facility] HEMATOLOGY Lymphocytes # 2.5 1.0 - 5.5 11/14 [place] [facility] HEMATOLOGY Neutrophils # 7.5 1.5 - 8.1 11/14 [place] [facility] HEMATOLOGY Eosinophils 0.6 0.0 - 4.0 [place] [facility] HEMATOLOGY Monocytes 8.4 2.0 - 12.0 11/14 [facility] HEMATOLOGY Basophils 0.2 0.0 - 1.0 11/14 [facility] HEMATOLOGY Segs 68.4 45.0 - 11/14 [place] 75.0 /2017 [facility] HEMATOLOGY Lymphocytes 22.4 20.0 - 11/14 [place] 40.0 [facility] HEMATOLOGY MCV 80.6 80.0 - 11/14 [place] 98.0 [facility] HEMATOLOGY Hct 27.6 36.0 - 11/14 [place] 48.0 [facility] HEMATOLOGY Hgb 8.9 12.0 - 11/14 [place] 16.0 [facility] HEMATOLOGY RBC 3.43 4.20 - 11/14 [place] 5.40 [facility] HEMATOLOGY WBC 11.0 3.7 - 10.4 11/14 [facility] HEMATOLOGY Platelet 300 133 - 450 11/14 [facility] HEMATOLOGY MPV 9.0 7.4 - 10.4 11/14 [facility] HEMATOLOGY MCH 25.8 27.0 - 11/14 [place] 31.0 [facility] HEMATOLOGY RDW 21.1 11.5 - 11/14 [place] 14.5 [facility] HEMATOLOGY MCHC 32.1 32.0 - 11/14 [place] 36.0 [facility] CHEM PANEL eGFR 61 11/13 [facility] Comment: The Medical eGFR is Center [...] Potassium Lvl 3.4 3.5 - 5.1 11/[address] CHEM PANEL Sodium Lvl 145 135 - [address] CHEM PANEL Chloride Lvl 107 95 - 109 03 [facility]2017 [facility] CHEM PANEL Calcium Lvl 8.3 8.5 - 10.5 11/13 [facility] CHEM PANEL AGAP 12.4 10.0 - 11/13 [facility] 20.0 [facility] CHEM PANEL CO2 29 24 - 32 11/[address] CHEM PANEL Creatinine 0.91 0.50 - 03 [facility] Lvl 1.40 [facility] CHEM PANEL BUN 14 7 - 22 11/[address] CHEM PANEL Glucose Lvl 111 70 - 99 11/[address] HEMATOLOGY Anisocyte 1+ None Seen 11/13 [facility] *ABN* /2017 [facility] (11/13/17 3:33 AM) [facility] HEMATOLOGY Basophils 0.1 0.0 - 1.0 11/[address] HEMATOLOGY Segs 75.0 45.0 - 11/13 [facility] 75.0 [facility] HEMATOLOGY Lymphocytes # 2.1 1.0 - 5.5 11/[address] HEMATOLOGY Neutrophils # 10.1 1.5 - 8.1 11/[address] HEMATOLOGY Monocytes # 1.3 0.0 - 0.8 03 [facility]2017 [facility] HEMATOLOGY Monocytes 9.3 2.0 - 12.0 11/[address] HEMATOLOGY Lymphocytes 15.6 20.0 - 11/13 [facility] 40.0 [facility] HEMATOLOGY MCV 81.2 80.0 - 08 [facility] 98.0 2017 [facility] HEMATOLOGY MCHC 31.5 32.0 - 03/08 [place] 36.0 [facility] HEMATOLOGY MCH 25.6 27.0 - 03/08 [facility] [place] 31.0 [facility] HEMATOLOGY Hgb 8.0 12.0 - 11/13 [facility] 16.0 [facility] HEMATOLOGY Hct 25.4 36.0 - 11/13 [facility] 48.0 [facility] HEMATOLOGY RBC 3.13 4.20 - 11/13 [facility] 5.40 /2017 [facility] HEMATOLOGY WBC 13.5 3.7 - 10.4 11/13 [facility]2017 [facility] HEMATOLOGY Platelet 308 133 - 450 11/13 [facility]2017 [facility] HEMATOLOGY MPV 9.1 7.4 - 10.4 11/13 [facility]2017 [facility] HEMATOLOGY RDW 21.5 11.5 - 11/13 [facility] 14.5 [facility] ELECTROLYTE AGAP 14.3 10.0 - 11/12 [facility] S 20.0 [facility] ELECTROLYTE eGFR 49 11/12 [facility] Comment: The Medical eGFR is Center [...] Glucose Lvl 175 70 - 99 11/12 [facility] ELECTROLYTE Calcium Lvl 9.0 8.5 - 10.5 11/12 [place] [facility] ELECTROLYTE Chloride Lvl 105 95 - 109 11/12 [facility] as [facility] ELECTROLYTE CO2 25 24 - 32 11/12 [facility] 2017 [facility] ELECTROLYTE Sodium Lvl 140 135 - 145 11/12 [place] [facility] ELECTROLYTE Potassium Lvl 4.3 3.5 - 5.1 11/12 [place] [facility] ELECTROLYTE BUN 14 7 - 22 11/12 [facility] S [facility] ELECTROLYTE Creatinine 1.09 0.50 - 11/12 [facility] S Lvl 1.40 [facility] HEMATOLOGY MCH 25.5 27.0 - 11/12 [place] 31.0 [facility] HEMATOLOGY MCV 82.0 80.0 - 11/12 [place] 98.0 [facility] HEMATOLOGY RDW 21.6 11.5 - 11/12 [place] 14.5 [facility] HEMATOLOGY MCHC 31.2 32.0 - 11/12 [place] 36.0 [facility] HEMATOLOGY RBC 3.66 4.20 - 11/12 [place] 5.40 [facility] HEMATOLOGY Hct 30.0 36.0 - 11/12 [place] 48.0 [facility] HEMATOLOGY Hgb 9.4 12.0 - 11/12 [place] 16.0 [facility] HEMATOLOGY WBC 19.6 3.7 - 10.4 11/12 2017 [facility] HEMATOLOGY MPV 9.7 7.4 - 10.4 11/12 2017 [facility] HEMATOLOGY Platelet 311 133 - 450 11/12 [facility] HEMATOLOGY Plt Morph Normal 11/12 [facility] (11/12/17 6:21 AM) [facility] HEMATOLOGY Segs 92.7 45.0 - 11/12 [place] 75.0 [facility] HEMATOLOGY Monocytes # 0.2 0.0 - 0.8 11/12 [place] [facility] HEMATOLOGY Anisocyte 1+ None Seen 11/12 [facility] *ABN* /2017 [facility] (11/12/17 6:21 AM) [facility] HEMATOLOGY Lymphocytes # 1.2 1.0 - 5.5 11/12 [facility] xa [facility] HEMATOLOGY Monocytes 1.1 2.0 - 12.0 11/12 [facility] [address] [place] [address] HEMATOLOGY Basophils 0.1 0.0 - 1.0 03 [facility] [address] [place] [address] HEMATOLOGY Neutrophils # 18.2 1.5 - 8.1 11/12 [facility] xa [address] [place] [address] HEMATOLOGY Lymphocytes 6.1 20.0 - 11/12 [place] 40.0 [facility] TUMOR AFP 1.8 0.0 - 11.0 11/12 [facility] MARKERS [facility] TUMOR CEA 0.5 0.0 - 3.0 11/12 [facility] MARKERS /[address] [place] [address] TUMOR CA 19-9 8.1 0.0 - 35.0 11/12 [facility] MARKERS /[address] [place] [address] CHEM PANEL Lactic Acid 1.2 0.5 - 2.2 11/11 [place] L[place] /[address] [place] [address] CHEM PANEL Lactic Acid 2.4 0.5 - 2.2 11/11 [facility] s l /[address] [place] [address] Culture: No Growth 11/11 [facility] Urine /[address] [place] [address] URINE AND UA Bacteria Moderate None Seen 11/11 [facility] /HPF /HPF /2017 [facility] URINE AND UA WBC 6-10 /HPF None Seen 11/11 [facility] STOOL /HPF /[address] [place] [address] URINE AND UA Mucus None Seen None Seen 11/11 [facility] (11/10/17 10:50 PM) /2017 [facility] URINE AND UA RBC 0-2 /HPF 0 - 2 11/11 [facility] STOOL /[address] [place] [address] URINE AND UA Sq Epi Moderate Few /LPF 11/11 [facility] STOOL /LPF /[address] [place] [address] URINE AND UA Leuk Est Moderate Negative 11/11 [facility] STOOL *ABN* /2017 [facility] (11/10/17 10:50 PM) [facility] URINE AND UA Nitrite Negative Negative 11/11 [facility] (11/10/17 10:50 PM) [facility] URINE AND UA 0.2 0.1 - 1.0 11/11 [facility] Urobilinogen /[address] [place] [address] URINE AND UA Spec Grav >=1.030 <=1.030 11/11 [facility] *ABN* /[address] [place] [address] (11/10/17 10:50 PM) [facility] URINE AND UA Turbidity Slight Cloudy Clear 11/11 [facility] (11/10/17 10:50 PM) [facility] URINE AND UA Color Yellow Yellow 11/11 [facility] STOOL *NA* /2017 [facility] (11/10/17 10:50 PM) Center URINE AND UA Glucose Negative Negative 11/11 [facility] (11/10/17 10:50 PM) [facility] URINE AND UA Protein 30 mg/dL Negative 11/11 [facility] STOOL mg/dL /[address] [place] [address] URINE AND UA pH 5.5 5.0 - 8.0 11/11 [facility] STOOL /[address] [place] [address] URINE AND UA Blood Moderate Negative 11/11 [facility] STOOL *ABN* /2017 [facility] (11/10/17 10:50 PM) [facility] URINE AND UA Bili Negative Negative 11/11 [facility] STOOL *NA* /2017 [facility] (11/10/17 10:50 PM) [facility] URINE AND UA Ketones Trace Negative 11/11 [facility] STOOL *ABN* /2017 [facility] (11/10/17 10:50 PM) [facility] CHEM PANEL Lactic Acid 2.3 0.5 - 2.2 11/11 [facility] WB [facility] HEMATOLOGY PT 15.2 12.0 - 11/11 [facility] 14.7 /2017 [facility] HEMATOLOGY INR 1.19 0.85 - 11/11 [facility] 1.17 /2017 [facility] HEMATOLOGY PTT 28.5 22.9 - 11/11 [facility] 35.8 /2017 [facility] HEMATOLOGY Basophils # 0.1 0.0 - 0.2 11/11 [facility] HEMATOLOGY Eosinophils 0.1 0.0 - 4.0 11/11 [facility] s [facility] Pathology Reports No Data Provided for This Section Diagnostic Reports Report Value Date Source Abdomen w/wo contrast EXAM: MR ABDOMEN WITH AND WITHOUT CONTRAS T 11/29/2017 [facility] MRI DATE: 11/28/2017 4:57 PM CDT Cent [...] STUDY: Image guided targeted liver biopsy 2017 [facility] DATE: 11/28/2017 12:[address] [...] attempt any liver biopsy on this occasion. MOTORCYCLE TESTER: Dr. Fernandez ORNAMENTAL IRONWORKER(S): None CONSENT: Written consent obt ained after [...] w STUDY: Image guided pelvic drain placement [facility] Medical drainage CT DATE: 11/28/2017 3:23 PM CDT Cent er INDICATION(S): 77-year-old w ith a diverticular abscess request is for image guided drain placement.. PROCEDURE(S) PERFORMED: Successful CT-guided placeme nt of a 10 Faroese left transgluteal drain with Miguel Ángel pus drained. MOTORCYCLE TESTER: Dr. Fernandez ORNAMENTAL IRONWORKER(S): None CONSENT: Written consent obt ained after discussing the indications, procedure, potential benefits, alternatives and risks SEDATION/PAIN CONTROL: Moder ate conscious sedation was administered by a dedicated nurse under my supervision. There was continuous monitoring of BP, pulse and oxygen saturation. Sedation time 30 minutes. PROCEDURE IN DETAIL: The patient was brought inte rventional suite and placed prone. [place] CT imaging confirmed the presence of pelvic [...] was then performed to accept a 10 Faroese Mac lock drain. Miguel Ángel pus was aspirated and specimen was sent for microbiology evaluation. The drain was then flushed a nd connected to a NASRA bulb for drainage. Drain to the skin using 2 sutures of 2-0 Prolene. Sterile dressing was applied. FINDINGS: Complex pelvic col lection with successful placement of a 10 Faroese drain. COMPLICATIONS: None ESTIMATED BLOOD LOSS: None FLUOROSCOPIC TIME: 0 minutes RADIATION DOSE (DLP): 823 mGy.cm CONTRAST VOLUME: 0 mL IMPRESSION: Successful CT-guided placeme nt of a 10 Faroese left transgluteal drain with Miguel Ángel pus drained. PLAN/FOLLOW UP: Recommend flushing the drain with 10 cc of salin e Q6 hourly. Dr. Dr Fernandez, IR Attending, was present fo r the procedure. 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 Bladder: Decompressed. Reproductive organs: The [place] is surgically absent. 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 11/10/2017 [facility] CT IMPRESSION: Center 1. 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 History of cough, colon cancer. [...] Value Date Comments Source Weight 49.545 04/08/2019 [facility] BMI Calculated 21.33 04/08/2019 [facility] Height 152.4 cm 04/08/2019 [facility] Systolic (mm Hg) 123 04/08/2019 [facility] Ceci ro Diastolic (mm Hg) 79 04/08/2019 [facility] Ne uro Heart Rate 49 04/08/2019 [facility] Respitory Rate 16 04/08/2019 [facility] Height 154.94 cm 08/05/2018 [facility] BMI Calculated 21.96 08/05/2018 [facility] Weight 52.727 08/05/2018 [facility] Heart Rate 52 08/05/2018 [facility] Respitory Rate 16 08/05/2018 [facility] Systolic (mm Hg) 154 08/05/2018 [facility] Ceci ro Diastolic (mm Hg) 81 08/05/2018 [facility] Ne uro Systolic (mm Hg) 163 03/20/2018 [facility] Diastolic (mm Hg) 70 03/20/2018 [facility] edical Center Systolic (mm Hg) 128 03/20/2018 [facility] Center Diastolic (mm Hg) 58 03/20/2018 [facility] edical Center Respitory Rate 15 03/20/2018 [facility] Center Respitory Rate 20 03/20/2018 [facility] Center Systolic (mm Hg) 113 03/20/2018 [facility]ical Center Diastolic (mm Hg) 56 03/20/2018 [facility] edical Center Respitory Rate 18 03/20/2018 [facility] Center Heart Rate 53 03/20/2018 [facility] BMI Calculated 19.78 03/20/2018 [facility] Center Weight 52.273 03/20/2018 [place] [facility] Height 162.56 cm 03/20/2018 [place] [facility] Weight 52.273 03/13/2018 [facility] BMI Calculated 19.78 03/13/2018 [facility] ana Center Height 162.56 cm 03/13/2018 [place] [facility] Systolic (mm Hg) 129 11/30/2017 [place] [facility] Diastolic (mm Hg) 72 11/30/2017 [facility] edical Center Heart Rate 75 11/30/2017 [place] [facility] Temperature Oral (F) 98.2 F 11/30/2017 [facility] Respitory Rate 18 11/30/2017 [facility] Center Respitory Rate 20 11/30/2017 [facility] Systolic (mm Hg) 118 11/30/2017 [facility] Diastolic (mm Hg) 70 11/30/2017 [facility] edical Center Temperature Oral (F) 98.2 F 11/30/2017 [facility] Heart Rate 61 11/30/2017 [facility] Temperature Oral (F) 97.6 F 11/30/2017 [facility] Respitory Rate 18 11/30/2017 [facility] Heart Rate 60 11/30/2017 [facility] Systolic (mm Hg) 133 11/30/2017 [facility] Diastolic (mm Hg) 60 11/30/2017 [facility]ical Center BMI Calculated 20.66 11/27/2017 [facility] Weight 54.602 11/27/2017 [facility] Height 162.56 cm 11/27/2017 [facility] Temperature Oral (F) 98.4 F 11/14/2017 [facility] Respitory Rate 18 11/14/2017 [facility] Heart Rate 58 11/14/2017 [facility] Systolic (mm Hg) 150 11/14/2017 [facility] Diastolic (mm Hg) 75 11/14/2017 [facility] edical Center Respitory Rate 18 11/14/2017 [facility] Heart Rate 60 11/14/2017 [facility] Temperature Oral (F) 98.5 F 11/14/2017 [facility] Systolic (mm Hg) 127 11/14/2017 [facility] Diastolic (mm Hg) 70 11/14/2017 [facility] Systolic (mm Hg) 134 11/14/2017 [facility] Diastolic (mm Hg) 72 11/14/2017 [facility] Heart Rate 59 11/14/2017 [facility] Respitory Rate 18 11/14/2017 [facility] Temperature Oral (F) 98.5 F 11/14/2017 [facility] Weight 57.784 11/11/2017 [facility] Weight 57.818 11/11/2017 [facility] BMI Calculated 21.88 11/11/2017 [facility] Height 162.56 cm 11/11/2017 [facility] Weight 58.636 11/11/2017 [facility] Encounters Location Location Encounter Encounter Reason Attending ADM DC Stat us Source Details Type Number For Provider Date Date Visit [facility] Bedded [id number] [place] 10/29 10/29 [facility] Outpatient [place] /2017 [facility] Memorial Inpatient [id number] Thad 11/11 11/14 [facility] /2017 [facility] Memorial Observation [id number] Thad 11/27 11/30 [facility] /2017 [facility] Memorial Phone [id number] 02/24 02/26 [facility] [id number] Pedro 03/20 03[facility] Outpatient [id number] JOSÉ MIGUEL 05/05 [facility] Outpatient [id number] JOSÉ MIGUEL 08/05 [facility] [place] [facility] Outpatient [id number] José Miguel 08/05 08/06 [facility] Neurology [facility] /2017 [facility] [place] [facility] Outside [id number] 09/12 09/14 [facility] Neurology Medical /2018 [facility] [place] Records Outpatient [id number] JOSÉ MIGUEL 11/04 [facility] [place] Outpatient [id number] José Miguel 04/08 [facility] [place] [facility] Outpatient [id number] José Miguel 04/08 04/09 [facility] Neurology [facility] [place] Outpatient [id number] José Miguel 08/19 [facility] [place] [facility] Ambulatory [id number] José Miguel 08/19 08/19 [facility] Neurology Pre-Reg [facility] [place] Outpatient [id number] José Miguel 06/28 [facility] Rex Procedures Procedure Code Date Perfomer Comments Source Image-guided fluid [id number] 11/28/2017 [place] as collection drainage Medic al by catheter (eg, Center abscess, hematoma, seroma, lymphocele, cyst); peritoneal or retroperitoneal, percutaneous Procedure on hip [id number] 06/12/2017 [facility] Bypass [id number] 05/29/2017 [facility] AAA - Repair of [id number] [facility] abdominal aortic [facility] aneurysm using [facility] graft [facility] Abdominal [id number] [facility] hysterectomy [facility] CABG - Coronary [id number] [facility] artery bypass graft [facility] ,[facility] Assessment and Plan Assessment and Plan Date Source Extracted from:Title: Team A Progress Note 11/30/2017 [facility] Author: Rob Carranza MD Date: 11/29/17 77 [...] she was transferred here from an outside [facility] on 11/27/17 with weakness and weight [...] Family History: Father: with prostate cancer, CAD, CT Mother: with colon cancer Brother: bone cancer Sister: with cerebral aneurysm Allergies Reviewed: Allergies: azithromycin, iodine Current Medications: Medications (23) Active Scheduled Meds (13): 11/27/17 atorvastatin 40 mg PO Bedtime 11/27/17 ciprofloxacin (ciprofloxacin 40 0 mg/200 mL intravenous solution) 400 mg IVPB [id number] 200 ml/hr 11/27/17 docusate 100 mg PO [...] 1.5 H Eosinophils # 0.2 Microcyte 1+ 11/272 POC Performing Locatio See Note Glucose POC [...] 11/28/17 Pain Intensity NRS (0-10) 0 11/27/17 [place] Coma Score 15 11/27/17 [facility] [place] [...] voice Speech: Adequate vocabulary, no impediments Nose: Liborio Negron Torres nasal turbinates, septum midline, no drainage or [...] IF YOU HAVE ANY QUESTIONS, PLEASE CONTACT [phone]. Addendum by Michele Fernandez MD on 8 [...] I have seen and examined the patient [facility] Team A and I agree with [...] Neck: supple. Extracted from:Title: Discharge Summary 11/14/2017 [facility] Author: Nadine Amin MD PHD Date: 11/14/17 Admission Date: 11/11/2017 Discharge Date: 11/11/2017 Admitting Physician/Service: Orville Rome MD/SIVAKUMAR Admission Diagnosis: 1. Perforated colon 2. Rectosigmoid [...] treated for divericulosis in Jun 2017 at [facility];. She was pointed out [...] and was unable to have biopsy at [facility]. The patient is also positive [...] date, if not called by Friday, call [phone] Advised to call/visit: call clinic or vi [...] in law. 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 Tobacco Details: Use: Current every day smoker. [...] PO Bedtime 11/11/17 ciprofloxacin 400 mg IVPB [id number] 200 ml/hr 11/11/17 donepezil 10 mg PO [...] 11/13/17 Pain Intensity NRS (0-10) 0 11/13/17 [place] Coma Score 15 11/13/17 [place] Score 20 Lines, Tubes, and Drains: 11/12/2017 12:50 Peripheral Lines: Forea rm Left 22 gauge Over the needle catheter General: Active, alert, well developed, well nourished, in no acute distress Head: Normocephalic, atraumatic Eyes: sclera is clear Hearing: normal to spoken voice Speech: Adequate vocabulary, no impediments Nose: Liborio Negron Torres nasal turbinates, septum midline, no drainage or [...] IF YOU HAVE ANY QUESTIONS, PLEASE CONTACT [phone]. Extracted from:Title: EGS Progress Note Author: Nadine Amin MD PHD Date: 11/12/17 Progress Note - Daily [facility] mpleted: Friday, NOV 12, 2017, 15:52 by Nadine Amin MD PHD RM: [id number] - 01, 3JP GWENDOLYN LIU 77y (: 1940) F Attending: Orville Rome MD Service: Trauma Service Reason for Admission: DIVERTICULITIS Working DRG: Esophagitis, gastroent and misc digest disorder s w/o [facility] Code status: None Specified=FULL CODE Current diet: Isolation: No Isolation/Standard Precautions Allergies: azithromycin, iodine SUBJECTIVE I am hungry OBJECTIVE CT with IV, PO, MD contrast obtained this AM + one small [...] PO Bedtime 11/11/17 ciprofloxacin 400 mg IVPB [id number] 200 ml/hr 11/11/17 donepezil 10 mg PO [...] treated for divericulosis in Jun 2017 at [facility]. She was point ed out [...] and was unable to have biopsy at [facility]. The patient is also positive [...] ended up going to a hospital in [place] due to wait times. The re, a CT abdomen/pelvis (no IV contrast) was performed which was concerning for possible perforation with area of contained air outside of the colon. She was sent to [facility] for continued care. Upon initial interview she [...] vomiting. Of note, she was seen at [facility] in for sigmoid diverticulitis. At that time [...] unable to biopsy the liver lesions at [facility]. Past Medical History: DM Chronic kidney disease [...] --- 24 Hr Tmax: 98.1F (36.72c) at 03/ 21:0 2 Vital Signs are the last [...] glucose q6h while NPO Breanne Mcgovern MSO: [id number] Addendum #Malnutrition - Will add boost #COPD- [...] History Date Source Social History TypeResponse 03/13/2018 [facility] Substance Abuse Use: None. Employment/School 1 Alcohol [...] 04/08/19 1not driving Social History TypeResponse 11/27/2017 [facility] Smoking Status Current every day smoker; Exposure to To bacco Smoke None; Cigarette Smoking Last 365 Days Yes; Reg Smoking Cessation Counseling No entered on: 11/27/17 Family History No Data Provided for This Section Advance Directives No Data Provided for This Section Functional Status No Data Provided for This Section
--- OUTSIDE RECORDS SUMMARY | 2020-06-20 16:16 | XMS REPORT | Continuity of Care Document ---
:1940 Author Organization [facility] t Address [address] [place] [address] Care Team Providers Name Role Phone Asked, Pcp Primary Care Physician Unavailable Lex BARRIENTOS Attending Clinician Doctor Unassigned, Name Attending Clinician Unavailable Ady Damon Attending Clinician GENERAL Attending Clinician [...] ATED COLON; RECTOSIGMO ID DIVER Active 02/26/2018 [facility] COLON CA Diagnosis Active 2017-11-27 M emoria 11-26 04:45:00 l COLON CA 00:00: Gerardo calle 00 Active 11/26/2017 [facility] PELVIC Diagnosis Active 2017-12-21 [facility] oria ABSCESS 11-26 05:11:00 l PELVIC 00:00: Rex ABSCESS 00 Active 11/26/2017 [facility] GI BLEED Diagnosis Active 2017-11-10 emoria 11-10 22:16:00 l GI BLEED 00:00: Gerardo n 00 Active 11/10/2017 [facility] DIVERTICUL Diagnosis Active 2017-11-12 Memoria ITIS 11-10 11:46:00 l 00:00: Rex DIVERTICUL 00 ITIS Active 11/10/2017 [facility] ABNORMAL Diagnosis Active 2017-10-29 emoria IMAGING 10-29 08:39:00 l ABNORMAL 00:00: Gerardo n IMAGING 00 Active 10/29/2017 [facility] Diabetes Diabetes Disease [facility] 00 [employer] Acute Acute Disease Active [facility] pulmonary pulmonary 16 [facility] - insufficie insufficie 00:00: Me dical ncy ncy 00 Center following following thoracic thoracic surgery surgery Encephalop Encephalop Disease Active [facility] athy acute athy acute 16 [facility]jorie kes - 00:00: Medical 00 [employer] Cardiogeni Cardiogeni Disease Active [facility] c shock c shock 16 [facility] 00 [employer] COPD COPD Disease Active [facility] (chronic (chronic 05-24 [facility] - obstructiv obstructiv 00:00: Me dical e e 00 Center pulmonary pulmonary disease) disease) Hyperchlor Hyperchlor Disease Active [facility] emic emic 16 [facility] - metabolic metabolic 00:00: Medi ana acidosis acidosis 00 Center Acute Acute Disease Active [facility] blood loss blood loss 16 [facility] kes - anemia anemia 00:00: Medical 00 [employer] Acute Acute Disease Active [facility] respirator respirator 9-15 Marjorie kes - y y 00:00: Medical insufficie insufficie 00 Ce nter ncy, ncy, postoperat postoperat nila nila Hypoxemia Hypoxemia Disease Active [facility] - 00[facility] Medical 00 [employer] Hemoptysis Hemoptysis Disease Active [facility] 9[facility]15 [facility] Medical 00 Center NSTEMI NSTEMI Disease Active [facility] (non-ST (non-ST 9-14 [facility] - elevated elevated 00:00: Medica l myocardial myocardial 00 Ce nter infarction infarction ) ) Pain in Pain in Problem Active [facility] [...] routine healing, healing, subsequent subsequent encounter encounter Rectosigmo Rectosigmo Problem Active U nivers id id [id number] ity of divert[place] divert[place] [facility] Phys[facility] ans Liver mass Liver mass Problem Active U nivers [id number] [facility] [facility] Colonic Colonic Problem Active [facility] stricture stricture [id number] ity of [place] Physici ans Essential Problem 2018-03-08 Me moria (primary) 11:13:12 l hypertensi Gerardo n on Essential (primary) hypertensi on 03/08/2018 [facility] Atheroscle Problem 2018-10-08 M emoria rotic 13:42:22 l 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 kaibab angina coronary pectoris artery without angina pectoris 10/08/2018 [facility] Old Problem 2018-02-04 Memor ia myocardial 14:34:14 l infarction Old Gerardo n myocardial infarction 02/04/2018 [facility] Type 2 Problem 2018-03-08 Memor ia diabetes 11:13:12 l mellitus Type 2 Gerardo n without diabetes complicati mellitus ons without complicati ons 03/08/2018 [facility] Unspecifie Problem 2018-02-04 M emoria d asthma, 14:34:14 l uncomplica Gerardo n marian Unspecifie d asthma, uncomplica marian 02/04/2018 [facility] Presence Problem 2018-10-08 Mem oria of 13:42:22 l aortocoron Presence He matthew lópez bypass of graft aortocoron rene bypass graft 10/08/2018 [facility] Acute Problem 2018-03-08 Memor ia kidney 11:13:12 l failure, Acute [place] unspecifie kidney d failure, unspecifie d 03/08/2018 [facility] Hyperlipid Problem 2018-03-08 M emoria emia, 11:13:12 l unspecifie Gerardo n d Hyperlipid emia, unspecifie d 03/08/2018 [facility] Hypothyroi Problem 2018-10-08 M emoria dism, 13:42:22 l unspecifie Gerardo n d Hypothyroi dism, unspecifie d 10/08/2018 [facility] Nicotine Problem 2018-03-08 Mem oria dependence 11:13:12 l , Nicotine Gerardo n unspecifie dependence d, , uncomplica unspecifie marian d, uncomplica marian 03/08/2018 [facility] Liver Problem 2018-10-08 Memor ia disease, 13:42:22 l unspecifie Liver Susi nn d disease, unspecifie d 10/08/2018 [facility] Elevated Problem 2018-10-08 Mem oria white 13:42:22 l blood cell Elevated He rmann count, white unspecifie blood cell d count, unspecifie d 10/08/2018 [facility] 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 2018-03-08 Me moria (current) 11:13:12 l use of Long [place] oral term hypoglycem (current) ic drugs use of oral hypoglycem ic drugs 03/08/2018 [facility] Other long Problem 2018-10-08 M emoria term 13:42:22 l (current) Other Gerardo n drug terminal block assembler therapy (current) drug therapy 10/08/2018 [facility] Urinary Problem 2018-10-08 Donnie adlton tract 13:42:22 l infection, Urinary Her bashir site not tract specified infection, site not specified 10/08/2018 [facility] Unspecifie Problem 2018-10-08 M emoria d 13:42:22 l protein-ca Gerardo n grady Unspecifie malnutriti d on protein-ca grady malnutriti on 10/08/2018 [facility] Type 2 Problem 2018-10-08 Memor ia diabetes 13:42:22 l mellitus Type 2 Gerardo n with diabetes diabetic mellitus chronic with kidney diabetic disease chronic kidney disease 10/08/2018 [facility] Emphysema, Problem 2018-10-08 M emoria unspecifie 13:42:22 l d Rex Emphysema, unspecifie d 10/08/2018 [facility] Anemia, Problem 2018-10-08 Donnie dalton unspecifie 13:42:22 l d Anemia, [place] unspecifie d 10/08/2018 [facility] Unspecifie Problem 2018-10-08 M emoria d dementia 13:42:22 l without Rex behavioral Unspecifie disturbanc d dementia e without behavioral disturbanc e 10/08/2018 [facility] Chronic Problem 2018-10-08 Donnie dalton kidney 13:42:22 l disease, Chronic Susi nn unspecifie kidney d disease, unspecifie d 10/08/2018 [facility] 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 2018-10-08 Me moria (current) 13:42:22 l use of Long [place] aspirin term (current) use of aspirin 10/08/2018 [facility] Personal Problem 2018-10-08 Mem oria history of 13:42:22 l other Personal Gerardo n diseases history of of the other 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 [facility] Coron[facility] Problem Active 2019-08-21 Mem oria arterioscl 22:22:24 l erosis Coronary Gerardo n (disorder) arterioscl erosis (disorder) Active Problem 08/21/2019 [facility] Dorman,[facility], EDDC Dementia Problem Active 2019-08-21 Mem oria (disorder) 22:22:24 l Dementia Gerardo n (disorder) Active Problem 08/21/2019 [facility] Depressive Problem Active 2019-08-21 M emoria disorder 22:22:24 l (disorder) Gerardo calle Depressive disorder (disorder) Active Problem 08/21/2019 [facility] EDCT Dyslipidem Problem Active 2019-08-21 M emoria ia 22:22:24 l (disorder) Gerardo n Dyslipidem ia (disorder) Active Problem 08/21/2019 [facility] History of Problem Active 2019-08-21 M emoria repair of 22:22:24 l aneurysm History Susi nn of of repair abdominal of aorta aneurysm (situation of ) abdominal aorta (situation ) Active Problem 08/21/2019 [facility] Hypertensi Problem Active 2019-08-21 M emoria ve 22:22:24 l disorder, Rex systemic Hypertensi arterial ve (disorder) disorder, systemic arterial (disorder) Active Problem 08/21/2019 [facility] Hypothyroi Problem Active 2019-08-21 M emoria dism 22:22:24 l (disorder) Gerardo calle Hypothyroi dism (disorder) Active Problem 08/21/2019 [facility] Lesion of Problem Active 2019-08-21 Me moria liver 22:22:24 l (finding) Lesion Susi nn of liver (finding) Active Problem 08/21/2019 [facility] Diabetes Problem Active 2019-08-21 Mem oria mellitus 22:22:24 l type 2 Diabetes Gerardo n (disorder) mellitus type 2 (disorder) Active Problem 08/21/2019 [facility]CT DVTRCLI OF Diagnosis Active 2017-11-12 Memoria INTEST, 11:46:00 l PART UNSP, DVTRCLI Her bashir W/O PERF O OF INTEST, PART UNSP, W/O PERF O Active [facility] FEMALE Diagnosis Active 2017-12-21 Mem oria PELVIC 05:11:00 l INFLAMMATO FEMALE Herm daniel RY PELVIC DISEASE, INFLAMMATO UNSP RY DISEASE, UNSP Active [facility] Perforatio Problem 2018-2018-10-08 2018-10-08 Memoria n of 11-20 13:42:22 13:42:22 l intestine 03:07: Rex (nontrauma Perforatio 12 tic) n of intestine (nontrauma tic) 11/20/2017 10/08/2018 [facility] Female Problem 2017-2018-03-08 2018-03-08 M emoria pelvic 12-06 11:13:12 11:13:12 l inflammato Female 03:12: Herm daniel ry pelvic 11 disease, inflammato unspecifie ry d disease, unspecifie d 12/06/2017 03/08/2018 [facility] Diverticul Problem 2018-02-04 2018-02-04 Memoria osis of 11-08 14:34:14 14:34:14 l large 04:13: Rex intestine Diverticul 06 without osis of perforatio large n or intestine abscess without without perforatio bleeding n or abscess without bleeding 8 02/04/2018 [facility] Allergies, Adverse Reactions, Alerts Allergy Allergy Status Severity Reaction(s) Onset Inactive Treating Comm ents Source Name Type Date Date Clinician Iodine Propensi Active [place] ty to 3 Methodi adverse 00:00: st reaction 00 s to drug Iodine Propensi Active Hives Pt does [place] And ty to 05-22 eat Methodi Iodide adverse 00:00: shrimps st Containi reaction 00 and other ng s to seafood. Products drug Iodine Propensi Active Hives Pt does [facility] And ty to 05-22 eat [facility] - Iodide adverse 00:00: shrimps Medical Containi reaction [address] ng s seafood. Products Iodine drug Active [facility] SOLN allergy ity [facility] Physici ans Azithrom Propensi Active [place] ycin ty to Methodi adverse st reaction s to drug azithrom azithrom Active Memori a ycin ycin l [place] iodine iodine Active Memoria l Rex Family History Family Member Diagnosis Comments Start Date Stop Date Source Natural father Cancer [facility] Natural mother Cancer [facility] Natural sister Cancer [facility] Social History Social Habit Start Date Stop Date Quantity Comments Source Sex Assigned At [facility] History of tobacco 2018-09-08 Current smoker [facility] use 00:00:00 Social History 2018-03-13 2018-03-13 Norman rojas 18:06:48 18:06:48 Cigarettes smoked 2017-05-25 2017-05-[address] [facility] - current (pack per 00:00:00 00:00:00 [facility] day) - Reported Cigarette 2017-05-25 2017-05-[address] [facility] - pack-years 00:00:00 00:00:00 [facility] Tobacco use and 2017-05-25 2017-05-[address] Marjorie kes - exposure 00:00:00 00:00:00 [facility] Alcohol intake 2017-05-25 2017-05-[address] Tip es - 00:00:00 00:00:00 non-drinker of Medical nter alcohol (finding) Smoking Status Start Date Stop Date Source Social History 2017-11-27 23:04:32 Norman Her bashir Former smoker 2017-05-25 00:00:00 2017-05-25 00:00:[address] [facility] Medications Ordered Filled Start Stop Current Ordering Indication Dosage Frequency Signature Comments Components Source Medication Medication Date Date Medication? Clinician (SIG) Name Name Memantine 2018-09 Yes 10 mg = 1 Mem oria hydrochlori 0-16 tab, PO, l de 10 MG 19:27: BID, # 60 Herm daniel Oral Tablet 10 tab, 6 [Namenda] Refill(s), Pharmacy: [facility] donepezil Yes = 1 tab, Donnie dalton 10 mg oral 8-01 PO, Daily, l tablet 15:27: # 30 tabHennaan n 19 3 Refill(s), Pharmacy: [id number] Memantine Yes 10 mg = 1 Mem oria hydrochlori 8-01 tab, PO, l de 10 MG 15:27: BID, # 60 Herm daniel Oral Tablet 00 tab, 6 [Namenda] Refill(s), Pharmacy: [facility] #[id number] donepezil No = 1 tab, Donnie dalton 10 mg oral 7-23 PO, Daily, l tablet 00:01: # 30 tab, Gerardo n 31 3 Refill(s), Pharmacy: [facility] donepezil Yes = 1 tab, Donnie dalton 10 mg oral 5-09 PO, Daily, l tablet 15:05: # 90 tab, Gerardo n 15 Refill(s) 1, Pharmacy: [facility] donepezil 2017-09 No 10 mg = 1 Mem oria 10 mg oral 1-28 tab, PO, l tablet 19:42: Daily, # Rex 00 90 tab, 1 Refill(s), [facility]acy: [facility] Go[facility]TELY Yes See Memoria oral powder 6-19 Instructio l for 15:10: ns, Take Rex reconstitut 00 as ion directed by physician. Give Jug., # 1 ea, 0 Refill(s), Pharmacy: [facility] [id number] ciprofloxac No 500 mg = 1 Memoria [...] Notes: Memoria 3-24 porcine l 21:00: heparin [place] 00 NS (Bolus) No 1,000 mL, Me moria IV 3-24 500 ml/hr, l 16:48: Infuse [place] 00 Over: 2 hr, Route: IV, 1,000, Drug form: INJ, ONCE, Priority: STAT, Dosing Weight 54.602 kg, Start date: 11/29/17 11:48:00 CDT, Stop date: 11/29/17 11:48:00 CDT Tramadol No Notes: Not Mem oria 3-23 to exceed l 22:01: 400mg/day. [place] 00 (Same As: Ultram) Tylenol No Notes: Do Memor ia 3-23 not exceed l 21:55: 4 gm/day. [place] 00 (Same as: Tylenol) Midazolam No 1 mg, Memoria 3-23 Route: l 19:30: IVP, Drug form: INJ, ONCE, Dosing Weight 54.602, kg, Start date: 11/28/17 14:30:00 CDT, Stop date: 11/28/17 14:30:00 CDT Fentanyl No 50 Memoria 3-23 microgram, l 19:30: Route: IVP, Drug form: INJ, ONCE, Dosing Weight [...] Folic 3-23 Same as l 14:00: Iron/C/B12 Rex /FA/SA Furosemide No Notes: Memor ia 20 MG Oral 3-23 (Same as: l Tablet 14:00: Lasix) [place] [Lasix] 00 May cause GI upset. Give with food or milk. Lexapro No Notes: Memoria 3-23 (Same as: l 14:00: Lexapro) donepezil No Notes: Memori a 3-23 (Same as: l 14:00: Aricept) metoprolol No metoprolol M emoria 25 mg oral 3-23 25 mg oral l tablet, 14:00: tablet, [place] extended 00 extended release release, 25 mg, Route: PO, Daily, 11/28/17 9:00:00 CDT, Duration: 30 day, Stop date: 12/27/17 9:00:00 CDT Thyroxine No Notes: Memori a 3-23 Take 1 l 11:30: hour [place] before or 2 hours after meal; Enteral feeds may interefere with the absorption of this medication . (Same as:Levothr oid) Remeron No Notes: Memoria 3-23 (Same l 02:00: as:Remeron [place] ) atorvastati No Notes: Donnie dalton n 3-23 (Same as: l 02:00: Lipitor) [place] 00 Flagyl No 500 mg, Memoria 3-23 100 mL, l 00:00: Route: [place] 00 IVPB, Drug form: INJ, [id number], Dosing Weight 54.602, kg, Start date: 11/27/17 19:00:00 CDT, Duration: 7 day, Stop date: 12/04/17 3:30:00 CDT, ABX Indication : Intra-abdo elizabeth Infection 200 ML No 400 mg, Memoria Ciprofloxac -23 200 mL, l in 2 MG/ML 00:00: Route: Susi nn Injection 00 IVPB, Drug form: INJ, [id number], Dosing Weight 54.602, kg, Start date: 11/27/17 19:00:00 CDT, Duration: 7 day, Stop date: 12/04/17 7:00:00 CDT, ABX Indication : Intra-abdo elizabeth Infection Docusate No Notes: Memoria 3-22 (Same as: l 22:00: Colace) Rex (Do Not Crush) Megestrol No Notes: Memori a Acetate 40 -22 (Same as: l MG Oral 22:00: Megace) Rex Tablet 00 WASTE: F/P - Black; E - Yellow Dextrose No 25 gm, 50 Donnie dalton 50% Syringe 3-22 mL, Route: l 19:09: IVP, Drug [place] Form: INJ, Dosing Weight 57.784, kg, PRN, PRN Blood Glucose Results, Start date: 11/27/17 14:09:00 CDT, Duration: 30 day, Stop date: 12/27/17 14:08:00 CDT Glucagon No 1 mg, Memoria 11-27 Route: IM, l 19:09: Drug form: PDR/INJ, PRN, Dosing Weight 57.784, kg, PRN [...] tablet l MG / 14:00: = Trimethopri trimethopr m 160 MG im 160mg + Oral Tablet sulfametho [Bactrim] xazole 800 mg Dose based on trimethopr im component On empty stomach with a glass of water. (Same As: Bactrim DS, Septra DS) Isolyte S No Notes: Memori a PH 7.4 11-27 (Same as: l 1,000 mL 09:21: Isolyte S Herm daniel 00 PH 7.4) Metronidazo No 500 mg = 1 Memoria le 500 MG 3-09 tab, PO, l Oral Tablet 14:45: Q8H, X 3 He rmann [Flagyl] day, # 9 tab, 0 Refill(s) ciprofloxac No 500 mg = 1 Memoria in 500 mg 3-09 tab, PO, l oral tablet 14:45: Q12H, X 3 H ermann day, # 6 tab, 0 Refill(s) 24 HR No = 1 patch, Memori a Nicotine 3-09 TOP, l 0.583 MG/HR 14:45: Daily, X He rmann Transdermal 00 30 day, # Patch 30 patch, [Habitrol] 0 Refill(s) Aspirin 81 No Notes: Memor ia MG Chewable 3-07 Take with l Tablet 15:00: food. [place] 00 remove No Notes: Memoria patch 3-07 Remove old l 15:00: patch before applicatio n of new patch. WASTE: [...] Weight 57.784, kg, Start date: 11/11/17 21:00:00 THERMAL TECHNICIAN, Duration: 30 day, Stop date: 12/10/17 21:00:00 [...] MG/HR 21:59: l, Daily, H ermann Transdermal 0 Patch Refill(s) Megestrol Yes 40 mg = 1 Mem oria Acetate 40 3-06 tab, PO, l MG Oral 21:59: BID, 0 [place] Tablet 00 Refill(s) zolpidem 5 No 5 mg = 1 Mem oria mg oral 3-06 tab, PO, l tablet 21:59: PRN, 0 Rex 00 Refill(s) Hemocyte Yes 1 cap, PO, Mem oria Plus 3-06 Daily, 0 l 21:59: Refill(s) [place] ondansetron Yes 4 mg = 1 Me moria 4 mg oral 3-06 tab, PO, l tablet 21:59: PRN, 0 Rex 00 Refill(s) Nicotine No Notes: Memoria 3-06 (Same as: l 18:39: Habitrol) [place] 00 "Remove old patch before applicatio n of new patch" WASTE: F/P - P Waste Black; E - P Waste Black 24 HR No 25 mg, 1 Memoria Metoprolol 3-06 tab, l Tartrate 25 15:00: Route: PO, Rex MG Extended 00 Drug form: Release ERTAB, Tablet Daily, [Toprol] Start date: 11/11/17 9:00:00 THERMAL TECHNICIAN, Duration: 30 day, Stop date: 12/10/17 9:00:00 CDT Lisinopril No Notes: Memor ia 3-06 (Same as: l 15:00: Prinivil) [place] 00 Furosemide No Notes: Memor ia 20 MG Oral -06 (Same as: l Tablet 15:00: Lasix) [place] [Lasix] 00 May cause GI upset. Give with food or milk. Lexapro No Notes: Memoria 3-06 (Same as: l 15:00: Lexapro) [place] 00 donepezil No Notes: Memori a 3-06 (Same as: l 15:00: Aricept) Rex 00 heparin No Notes: Memoria 3-06 porcine l 14:00: heparin Rex 00 Thyroxine No Notes: Memori a 3-06 Take 1 l 12:30: hour Rex 00 before or 2 hours after meal; Enteral feeds may interefere with the absorption of this medication . (Same as:Levothr oid) Enoxaparin 0 No Notes: Memor ia 3-06 (Same as: l 07:00: Lovenox) Dextrose 2017- No 25 gm, 50 Donnie dalton 50% Syringe 3-06 mL, Route: l 06:25: IVP, Drug Form: INJ, Dosing Weight 58.636, kg, PRN, PRN Blood Glucose Results, Start date: 11/11/17 0:25:00 THERMAL TECHNICIAN, Duration: 30 day, Stop date: 12/11/17 1:24:00 [...] Blood Glucose Results, Start date: 11/11/17 0:25:00 THERMAL TECHNICIAN, Duration: 30 day, Stop date: 12/11/17 1:24:00 CDT Mirtazapine No 30 mg = 1 M emoria 30 MG Oral 3-06 tab, PO, l Tablet 06:21: Bedtime, Crow Goldman nn [Remeron] 00 30 tab, 0 Refill(s) metoprolol 2018- Yes 25 mg = 1 Me moria 25 mg oral 3-06 tab, PO, l tablet, 06:21: Daily, Crwo Carrillo n extended 00 30 tab, 0 release Refill(s) Metformin 2017-0 Yes 500 mg, Memor ia 3-06 PO, BID, 0 l 06:21: Refill(s) Lisinopril 2017-0 Yes 2.5 mg, Donnie dalton 3-06 PO, Daily, l 06:21: 0 Rex 00 Refill(s) atorvastati Yes 40 mg = 1 M emoria n 40 mg 3-06 tab, PO, l oral tablet 06:21: Bedtime, # [place] 00 30 tab, 0 Refill(s) Escitalopra Yes [...] tab, PO, l tablet 06:21: Daily, # [place] 00 30 tab, 0 Refill(s) clopidogrel No 75 mg = 1 M emoria 75 MG Oral 3-06 tab, PO, l Tablet 06:21: Daily, # [place] [Plavix] 00 30 tab, 0 Refill(s) Aspirin No 81 mg, PO, Donnie dalton 3-06 Daily, 0 l 06:21: Refill(s) Rex 00 Isolyte S No Notes: Memori a PH 7.4 11-11 (Same as: l 1,000 mL 06:14: Isolyte S Herm daniel 00 PH 7.4) Flagyl No Notes: Memoria 11-11 (Same as: l 06:14: Flagyl) Rex Avoid alcohol. Ciprofloxac No Notes: Do M emoria in 11-11 not l 06:14: refrigerat Rex e Docusate No Notes: Memoria Sodium 100 11-11 (Same as: l MG Oral 06:14: Colace) [place] Capsule 00 (Do Not Crush) metoprolol 2016-09 [...] per tablet hours as needed for Pain. aspirin 81 2016-09 Yes 81mg QD Take [address] MG EC 0-05 by mouth [facility] - tablet 12:40: daily. Medical [address] [place] [address] atorvastati 2016-09 Yes 40mg QD Take [address] [facility] (LIPITOR) 0-05 by mouth [facility] - 40 MG 12:40: daily. Medical tablet [employer] calcium 2016-09 Yes 1{tbl} Take [address] carbonate-v 0-05 tablet by Tip es - itamin D3 12:40: mouth 2 Medic al (CALCIUM- 17 (two) Center TAMIN D) times 500 daily with mg(1,250mg) breakfast -200 unit and per tablet dinner. donepezil 2016-09 Yes 10mg QD Take [address] (ARICEPT) 0-05 by mouth [facility] - 10 MG 12:40: nightly. Medical tablet [employer] metFORMIN 2016-09 Yes 500mg Take [address] [facility] (GLUCOPHAGE 0-05 mg by [facility] - ) 500 MG 12:40: mouth 2 Medica l tablet 17 (two) Center times daily with breakfast and dinner. albuterol 2016-09 Yes 1{puff} Inhale [address] HFA 0-05 puff by [facility] - (VENTOLIN 12:40: mouth via Med ical HFA) 90 17 inhaler Center mcg/actuati every 6 on inhaler (six) hours as needed for Wheezing (SOB). nicotine 2017-1 Yes 1{patch Q24H Place [address] (NICODERM 0-05 } patch onto Luke s - CQ) 21 12:40: the skin Medical mg/24 hr 17 daily. Center patch nitroglycer 2016-[address] 0[address] in 0-05 mg under [facility] - (NITROSTAT) 12:40: the tongue Medical 0.4 MG SL 17 every 5 Center tablet (five) minutes as needed for Chest pain Put 1 pill under tongue every 5min as needed for chest pain.No more than 3 doses in 15min.Call 911 if pain is unrelieved 5min after 1st dose . metoprolol Yes TAKE 1/[address] (TOPROL-XL) [...] tablet 00:00: MOUTH Medical 00 DAILY. Center aspirin Yes 81mg Take 81 mg [place] (ECOTRIN) 4-10 by mouth. Metho di 81 MG 00:00: st enteric 00 coated tablet Calcium Calcium Yes Alfredo not [facility] Carbonate Carbonate [facility] defined [facility] Hemocyte Hemocyte Yes Alfredo not [facility] Plus Plus [facility] defined [facility] [...] Yes Alfredo not [facility] n Sean defined [facility] Zofran Zofran Yes Alfredo not [facility] clopidogrel clopidogrel Yes Alfredo not [facility] Multivitami Multivitami Yes Alfredo not [facility] n Adults n Adults Estrada defined Marjorie kes - 50+ 50+ Memoria [...] Yes Alfredo not [facility] Acetate Acetate Sean defined [facility] Mirtazapine Mirtazapine Yes Alfredo not [facility] Furosemide Furosemide Yes Alfredo not [facility] defined [facility] Escitalopra Escitalopra Yes Alfredo not [facility] Ox[facility]ate m Oxalate Sean defined [facility] Magnesium Magnesium Yes Alfredo not [facility] Oxide Oxide Estrada defined [facility] Vital Signs Vital Name Observation Time Observation Value Comments Source Weight 2019-04-08 Norman Aguillonan n 15:08:00 BMI Calculated 2019-04-08 Norman Aguillon daniel 15:08:00 Height 2019-04-08 152.4 cm Norman Carrillo n 15:08:00 Systolic (mm Hg) 2019-04-08 [facility] rmann 15:08:00 Diastolic (mm Hg) 2019-04-08 [facility] [place] ermann 15:08:00 Heart Rate 2019-04-08 Norman Carrillo n 15:08:00 Respitory Rate 2019-04-08 Norman Aguillon daniel 15:08:00 Height 2018-08-05 154.94 cm Norman Carrillo n 19:21:00 BMI Calculated 2018-08-05 Norman Aguillon daniel 19:21:00 Weight 2018-08-05 [facility] Carrillo n 19:21:00 Heart Rate 2018-08-05 [facility] 19:21:00 Respitory Rate 2018-08-05 [facility] 19:21:00 Systolic (mm Hg) 2018-08-05 [facility] 19:21:00 Diastolic (mm Hg) 2018-08-05 [facility] 19:21:00 BP Systolic 2018-03-26 124 mm[Hg] Location: [facility] 13:17:00 Position: [place] [facility] BP Diastolic 2018-03-26 75 mm[Hg] Location: [facility] 13:17:00 Position: [place] [facility] Weight 2018-03-26 115 [lb_av] [facility] 13:17:00 [place] [facility] Body Mass Index 2018-03-26 19.74 kg/m2 [facility] o f Calculated 13:17:00 [place] [facility] Temperature 2018-03-26 97.8 [degF] Method: [facility] 13:17:00 Tympanic [place] [facility] Heart Rate 2018-03-26 78 /min [facility] 13:17:00 [place] [facility] Systolic (mm Hg) 2018-03-20 [...] n 17:57:00 BP Systolic 2018-02-12 117 mm[Hg] [place] [address]:26:00 [place] [facility] BP Diastolic 2018-02-12 71 mm[Hg] [facility] :26:00 [place] [facility] Height 2018-02-12 64 [in_us] [facility] :26:00 [place] [facility] Weight 2018-02-12 117 [lb_av] [facility] :26:00 [place] [facility] Body Mass Index 2018-02-12 20.08 kg/m2 [facility] o f Calculated 14:26:00 [place] [facility] Temperature 2018-02-12 97.9 [degF] [facility] :26:00 [place] [facility] Heart Rate 2018-02-12 71 /min [facility] :26:00 [place] [facility] Systolic (mm Hg) 2017-11-30 [...] 10:00:00 Temperature Oral 2017-11-14 98.5 F [facility] (F) 10:00:00 Systolic (mm Hg) 2017-11-14 [facility] 10:00:00 Diastolic (mm Hg) 2017-11-14 [facility] 10:00:00 Systolic (mm Hg) 2017-11-14 [facility] 05:27:00 Diastolic (mm Hg) 2017-11-14 [facility] 05:27:00 Heart Rate 2017-11-14 [facility] n 05:27:00 Respitory Rate 2017-11-14 [facility]iel 05:27:00 Temperature Oral 2017-11-14 98.5 F [facility] Ramez [facility] (F) 05:27:00 Weight 2017-11-11 [facility] 12:54:00 Weight 2017-11-11 [facility] 09:31:00 BMI Calculated 2017-11-11 [facility] 09:31:00 Height 2017-11-11 162.56 cm [facility] 09:31:00 Weight 2017-11-11 [facility] 03:02:00 Procedures Procedure Date / Time Performed Performing Clinician [facility] e Image-guided fluid 2017-11-28 20:28:38 [facility] Rex collection drainage by catheter (eg, abscess, hematoma, seroma, lymphocele, cyst); peritoneal or retroperitoneal, percutaneous Procedure on hip 2017-06-12 05:00:00 [facility] Bypass 2017-05-29 05:00:00 [facility] bashir AAA - Repair of abdominal [facility] [place] aortic aneurysm using bifurcation graft Abdominal hysterectomy [facility] [place] CABG - Coronary artery [facility] [place] bypass graft Plan of Care Planned Activity Planned Date Details Comments Source Future Scheduled 2020-04-08 INFLUENZA VACCINE [facility] 00:00:00 [code = INFLUENZA VACCINE] Future Scheduled 2005 65+ PNEUMOCOCCAL [facility] [facility] 00:00:00 VACCINE (1 of 1 - PPSV23) [code = 65+ PNEUMOCOCCAL VACCINE (1 of 1 - PPSV23)] Future Scheduled 1990 SHINGLES VACCINES (#1) [place] [facility] 00:00:00 [code = SHINGLES VACCINES (#1)] Future Scheduled 1950 DIABETIC FOOT EXAM [place] [facility] 00:00:00 [code = DIABETIC FOOT EXAM] Future Scheduled 1950 URINE MICROALBUMIN [place] [facility] 00:00:00 [code = URINE MICROALBUMIN] Future Scheduled 1940 DIABETIC RETINAL EYE [place] [facility] [facility] 00:00:00 EXAM [code = DIABETIC RETINAL EYE EXAM] Encounters Start End Encounter Admission Attending Care Care Encounter Source Date/Time Date/Time Type Type Clinicians Facility Department ID 2020-05-16 2020-05-16 [facility] [id number] 00:00:00 00:00:00 Ladarius Luo [id number] [facility] [id number] [address] 2020-05-16 2020-05-16 Orders Doctor FRANCO [id number] 00:00:00 00:00:00 Only Unassigned, JUSTYN [id number]2.686 [id number] 2020-05-08 2020-05-08 [facility] [id number] 00:00:00 00:00:00 Ladarius Luo [id number] [place] [id number] [facility] [phone] [facility]9 [facility] 2020-05-08 2020-05-08 Orders Doctor FRANCO [id number] 00:00:00 00:00:00 Only Unassigned, JUSTYN [id number]2.686 [id number] 2019-08-19 2019-08-19 [id number] 10:00:00 10:00:00 Eliseo Garsia 2019-04-08 2019-04-08 Outpatient EVE DamonSCHER MHMISCHER [id number] 10:15:00 23:59:59 Eliseo 03 Ady 2018-12-29 2018-12-29 [facility] [id number] [facility] 15:36:00 15:36:00 [facility] 2018-12-17 2018-12-17 [facility] [id number] [facility] 13:00:00 13:00:00 [facility] 2018-12-17 2018-12-17 [facility] [id number] [facility] 10:30:00 10:30:00 [facility] 2018-11-12 2018-11-12 [facility]ul [facility] [id number] [facility] 13:30:00 13:30:00 [facility] 2018-09-12 2018-09-13 Outpatient MHMISCHER MHMISCHER [id number] 09:27:00 23:59:59 04 2018-08-05 2018-08-05 Outpatient DARIA DamonSCHER [id number] 13:00:00 23:59:59 Eliseo Ady 2018-03-26 2018-03-26 [facility] [id number] Univers 13:30:00 13:30:00 t; SERVICE [facility] [place] SERVICE Physici ans 2018-03-20 2018-03-20 Outpatient Bina [facility] [id number] 11:08:00 23:59:00 Pedro Taryn Kam[facility] 2018-02-24 2018-02-25 Outpatient [id number] 09:54:00 23:59:59 [id number] 2018-02-12 2018-02-12 Appointmen [facility] General [id number] Univers 13:30:00 13:30:00 t; SERVICE Surgery it[place], [place] SERVICE Physici ans 2017-12-18 2017-12-18 Appointmen GENERAL, [facility] [id number] Univers 13:30:00 13:30:00 t; SERVICE [place] SERVICE Physici ans 2017-11-27 2017-11-30 Outpatient Shweta, [facility] [id number] 01:19:00 12:45:00 Ron 80 [place] 2017-11-10 2017-11-14 Outpatient [place], [facility] [id number] 21:00:00 10:55:00 [place] 01 [facility] 2017-11-10 2017-11-14 Outpatient [place], [facility] [id number] 21:00:00 10:55:00 [place] 01 [facility] 2017-10-29 2017-10-29 Outpatient Egwiallan, [facility] [id number] 07:41:00 14:00:00 [place] 00 Adan Results [...] code = MCH) 29.5 pg 27.0-31.0 [facility] OlmyhgmBKISXXMANI0246-49-21 20:45:0032.3[facility] HermannHEMATOLOGY 2018-03-13 20:45:0091.4[facility] OzlbcjfUKKTYVSTOT2855-01-07 20:45:007.3[facility] BtgaedsVZGXCANKBQ2154-09-37 20:45:004.21[facility] GyompknFMMDBTVPSI1646-37-32 20:45:0012.4[facility] TgkffriNGBONHFDEP5807-21-08 20:45:0038.4[facility] [place] XCKKMSYDWR0100-13-39 20:45:00See Note (03/13/18 3:45 PM)[facility]annHEMATOLOGY 2018-03-13 20:45:00 Test Item Value Reference Range Interpretation Comments Angle (test code = Angle) 73.0 degrees 53.0-72.0 [facility] McoyszpJTGEYHEHPG5879-62-33 20:45:00 Test Item Value Reference Range Interpretation Comments Coag Index (test code = Coag Index) 3.1 1 <=3.0 [facility] MztgbdwXXTQJRPYPM4042-52-06 20:45:0011.8[facility] HermannHEMATOLOGY 2018-03-13 20:45:000.2[facility] EkrehzaXRCWLBVPFU9002-83-15 20:45:00 Test Item Value Reference Range Interpretation Comments R-time (test code = R-time) 4.3 min 5.0-10.0 [facility] OuqezvgZABZWJIDJZ1206-79-89 20:45:00 Test Item Value Reference Range Interpretation Comments K-time (test code = K-time) 1.1 min 1.0-3.0 [facility] NchzlpgVKUQKUJUZK9835-94-93 20:45:00 Test Item Value Reference Range Interpretation Comments Max Amp (test code = Max Amp) 70.2 mm 50.0-70.0 [facility] LIIJXFQSM4119-81-40 20:45:005.4[facility] JIEUZHLCJMYV9381-99-17 15:49:0012.6[facility] MysgvtoBGMMPUHFTKXG7460-54-82 15:49:0026[facility] YntoohzPYTHSXRDYPNE5723-49-42 15:49:008.7[facility] BYAGGAXVOTTD3738-43-30 15:49:003.6[facility] FyahzltXKYUYQGJPOAJ1912-65-09 15:49:59859Pgsrogpd IfwdhaaQQQZMTSTKHTB3237-24-09 15:49:0068[facility] ZZVFRSNYNKZR4201-27-41 15:49:007[facility] EazxmsbVXGYQVWCAPAF5773-56-88 15:49:00 0.83[facility] CozqlrgOGZBRFZDOKAS8342-58-45 15:49:81710Xcpeiteq [place] ALGRJFXJFKIE4417-82-44 15:49:71121Dcotozck HermannCHEM GURDF7028-98-89 11:16:00 2.1[facility] HermannCHEM RZRWF5894-53-20 11:16:003.2[facility] HermannELECTROLYTES 2017-11-29 11:16:0012.3[facility] NeupyaxTXHOZMANAHIZ7935-76-45 11:16:0048[facility] GhrdxcjTQDFKOHCIDLA0482-70-38 11:16:00576Fldprhzi TwphaiiKSHCSGFJRHDS4911-43-04 11:16:93585Hffiyaxn KwmgflwDGCAEETDJNEH1849-67-62 11:16:001.12[facility] JCRCPTXAPMMR3186-18-41 11:16:56916Lyucffxx UxltumeSGWSXBDZHGZP9792-03-11 11:16:003.3[facility] CcjjooyFLRITVAYKLCV0370-01-11 11:16:0011[facility] [place] ZVFNMDUUMJSB9656-44-70 11:16:008.7[facility] LoiuvkdIIFPGXXKQMGH0218-60-46 11:16:0026[facility] YaumnwtKJQRVIMSUU7604-32-11 11:16:000.2[facility] [place] TVAAQWQYQM6094-15-01 11:16:002.6[facility] TwyuskbAWSFKHCATW7190-13-29 11:16:001.4 [facility] ZmoourtDBAMCSLHJZ5069-71-05 11:16:0065.1[facility] HermannHEMATOLOGY 2017-11-29 11:16:001.9[facility] IuycxawQVJNWAGLRR9491-14-37 11:16:000.4[facility] RcjiryrYBYMZBFULS1442-22-06 11:16:007.9[facility] CotdmnhGPHWZJAPII1256-96-14 11:16:0021.2[facility] JonepicPKAFXEWHWY8173-78-29 11:16:0011.4[facility] SHHYTSGMRY7877-13-36 11:16:009.3[facility] DwdveqiDTQZLASTXH0882-08-03 11:16:00 Test Item Value Reference Range Interpretation Comments MCH (test code = MCH) 24.8 pg 27.0-31.0 [facility] BhauyjrBUPCVYZBCM8496-80-52 11:16:0031.6[facility] HermannHEMATOLOGY 2017-11-29 11:16:0079.5[facility] HrusnwhRJNZWCQHZD5923-72-70 11:16:59378Zogvrktp JonznkpKXUKDZGSUQ6172-27-88 11:16:0031.2[facility] UvmfggdIBHFTCRNMG6034-81-50 11:16:0020.5[facility] GhydxceGTMWJFBDWN1978-16-64 11:16:0012.1[facility] [place] EKAZGKQSYI2547-54-47 11:16:003.97[facility] PubusywLCERYWRKXN2747-03-98 11:16:00 9.8[facility] HermannPARATHYROID BTNCKUP0206-12-35 11:16:001.17[facility] [place] PARATHYROID AOZFJDG6529-34-98 11:16:001.16[facility] [place] CIPROFLOXACIN:SUSC:PT:ISOLATE:ORDQN:TSB8184-75-54 19:48:00Enterococcus Species [facility] HermannCHEM BTNFT8854-77-68 08:05:002.8[facility] HermannCHEM PANEL 2017-11-28 08:05:002.2[facility] HermannCHEM TKLHN7054-35-82 08:05:0071[facility] HermannCHEM DQAGY6796-22-34 08:05:0063[facility] HermannCHEM NBSIP9381-94-77 08:05:0010[facility] HermannCHEM BEZPL7663-87-91 08:05:008.3[facility] HermannCHEM VVCYF0576-59-52 08:05:0012.5[facility] HermannCHEM KOSAC2767-68-15 08:05:000.80 [facility] HermannCHEM BONNK7004-45-90 08:05:41739Zwghaszi HermannCHEM PANEL 2017-11-28 08:05:0025[facility] HermannCHEM KNDEG8567-89-19 08:05:05335Glcbdicn HermannCHEM GHUPC4279-69-29 08:05:003.5[facility] KvcbmuiAOGBVVGJRA6555-40-96 08:05:0072.9[facility] NmwolxsJUUZDNEABZ1504-49-83 08:05:009.0[facility] [place] XAYGIDBLAE1844-55-63 08:05:001+ *ABN*(11/28/17 3:05 AM)[facility] HermannHEMATOLOGY 2017-11-28 08:05:001.5[facility] VzgluepOAQBTSWQUY2238-95-38 08:05:001.7[facility] YmzndncZSMNJZNEYV3679-10-45 08:05:000.2[facility] QwxatgdOSXLRUOQVP3522-43-24 08:05:000.4[facility] XoqjvwsCACLDVHQOE6614-32-12 08:05:001.3[facility] [place] QAEFTISJAD2413-40-83 08:05:0011.9[facility] IvvgizrPLLNSDIPPO1478-13-09 08:05:00 13.5[facility] LncoerbBDUKVJSIAG7960-02-48 08:05:00 Test Item Value Reference Range Interpretation Comments MCH (test code = MCH) 24.7 pg 27.0-31.0 [facility] AugwfbrDQWQCNVZXM8224-08-77 08:05:0078.2[facility] HermannHEMATOLOGY 2017-11-28 08:05:0025.4[facility] GikchfyUWNQJTWNHF4385-60-66 08:05:008.0[facility] OlgwjdpBSCQFMLGYT0795-07-01 08:05:009.5[facility] DmacnleDEWPYZHKUX7394-46-01 08:05:30720Nahnyjwc RbcrvpcQYQDNNUIGD2203-49-62 08:05:0020.6[facility] PCKXSKVSHY9633-51-68 08:05:003.25[facility] HmaywzrEDJWIWGBRW3549-32-63 08:05:00 12.3[facility] PjmmzkvACZXGHAWUC6117-68-72 08:05:0031.6[facility] HermannPARATHYROID QCVDNWF9244-42-18 08:05:001.13[facility] HermannPARATHYROID VIMFUWL6120-92-69 08:05:001.13[facility] TqxwduoSYZGTFBRPU8985-33-53 11:36:591.6[facility] [place] AKANGPLHYP7630-41-13 11:36:591.0[facility] RpfrkccMGAPJIVVYG5575-75-72 11:36:590.1 [facility] VshgqfcIVUAIOLZTE7266-24-10 11:36:596.3[facility] HermannHEMATOLOGY 2017-11-27 11:36:5983.3[facility] RrkfsdbCPEAZIWYBF0242-64-07 11:36:5913.8[facility] AsogadaMFMTOIKAWA7630-57-11 11:36:590.7[facility] GukueqsKPFHKMHGXM9352-98-99 11:36:599.6[facility] CouxifwLZIRHLOESH4803-98-23 11:36:590.1[facility] [place] HRCAYQTGHS6219-63-63 11:36:96617Smaiipeb TznhvwdMYWPFPZIGQ7177-97-43 11:36:59 20.7[facility] PsgkmdlSSWJXMMFDB3176-79-11 11:36:5931.5[facility] HermannHEMATOLOGY 2017-11-27 11:36:599.2[facility] KrbwwqnQHESABDIQX4478-61-75 11:36:5916.5[facility] MremsgyJANOVYSVIO2717-84-70 11:36:59 Test Item Value Reference Range Interpretation Comments MCH (test code = MCH) 25.2 pg 27.0-31.0 [facility] FpzonrzUJWGRWSDGL7617-73-84 11:36:5979.9[facility] HermannHEMATOLOGY 2017-11-27 11:36:5925.0[facility] JsaytkgHPREIQWJFZ5197-88-54 11:36:597.9[facility] KnahyfsASPBIHFZTM1581-43-79 11:36:593.13[facility] HermannCHEM QWYMO9330-23-67 09:23:020.9[facility] HermannURINE AND SHLOE5242-05-32 08:42:56Moderate *ABN*(11/27/17 3:42 AM)[facility]ann[facility] AND FZJHA0473-70-96 08:42:560.2 [facility]annUR[facility] AND TASPX9912-10-63 08:42:56Large *ABN*(11/27/17 3:42 AM) [facility] AND BZDKH8723-77-04 08:42:56Negative (11/27/17 3:42 AM) [facility] AND ZYYZI8207-82-43 08:42:56Negative *NA*(11/27/17 3:42 AM) [facility] KUKFN3981-05-46 08:42:56Negative *NA*(11/27/17 3:42 AM) [facility] GKZMB0296-22-95 08:42:56Negative (11/27/17 3:42 AM) [facility] AND BDMWN2208-61-67 08:42:56 Test Item Value Reference Range Interpretation Comments UA Spec Grav (test code = UA Spec 1.020 1 Grav) [facility] AND FNENN1561-23-45 08:42:56Cloudy *ABN*(11/27/17 3:42 AM) [facility] NOFVU3329-36-98 08:42:56Yellow *NA*(11/27/17 3:42 AM) [facility] UXEGU6203-76-02 08:42:56 Test Item Value Reference Range Interpretation Comments UA pH (test code = UA pH) 7.5 1 5.0-8.0 [facility] HermannCARDIAC HCNGWBW2415-29-52 07:25:00<0.02[facility] HermannCHEM GWEOQ4148-21-20 07:25:0071[facility] HermannCHEM GYTDR4907-48-05 07:25:000.1 [facility] HermannCHEM DVDFG6442-99-91 07:25:000.2[facility] HermannCHEM PANEL 2017-11-27 07:25:000.1[facility] HermannCHEM ASCJJ8580-06-14 07:25:0066[facility] HermannCHEM FONRA3821-50-08 07:25:0012[facility] HermannCHEM CPQUL1156-95-18 07:25:0019[facility] HermannCHEM GXXUS2784-95-63 07:25:006.1[facility] HermannCHEM IKGNW9639-35-02 07:25:002.0[facility] HermannCHEM UQZUF0959-17-84 07:25:00 Test Item Value Reference Range Interpretation Comments A/G Ratio (test code = A/G Ratio) 0.5 1 0.7-1.6 [facility]annCHEM VGPYH2464-47-11 07:25:004.1[facility] HermannHEMATOLOGY 2017-11-27 07:25:001+ *ABN*(11/27/17 2:25 AM)[facility] JzetlmlFQIVLXROTT6852-69-66 07:25:000.1[facility] UdvsedjEZWYZBBMHZ1571-32-48 07:25:00 Test Item Value Reference Range Interpretation Comments PTT (test code = PTT) 25.8 s 22.9-35.8 [facility] OyvfbqhZNSTHFEKOE3010-91-50 07:25:00 Test Item Value Reference Range Interpretation Comments INR (test code = INR) 1.17 1 0.85-1.17 [facility] ZbzhbegBPBJVYNJKZ5326-11-15 07:25:00 Test Item Value Reference Range Interpretation Comments PT (test code = PT) 15.0 s 12.0-14.7 [facility] HermannCHEM FJURP9869-72-09 09:40:0062[facility] HermannCHEM PANEL 2017-11-14 09:40:10190Dyolyrrw HermannCHEM GUVXR8102-10-38 09:40:003.2[facility] HermannCHEM UNHUT2428-96-01 09:40:0030[facility] HermannCHEM ZAIAB7457-55-04 09:40:008.2[facility] HermannCHEM CBYKG7117-13-36 09:40:72666Jpdarfzf HermannCHEM LCDTN6181-24-51 09:40:000.90[facility] HermannCHEM RBYWK9439-74-75 09:40:0011 [facility] HermannCHEM KLPVT4884-42-06 09:40:0095[facility] HermannCHEM PANEL 2017-11-14 09:40:0012.2[facility] VdnezlqQSSMJNHYGA4147-46-90 09:40:001+ *ABN*(11/14/17 3:40 AM)[facility] VhrcndmCELVUFLGTG9185-19-66 09:40:000.9[facility] EgrbiprIEHSEFVSQA2919-37-57 09:40:000.1[facility] DesjcqmFPAVTUGWII2053-41-95 09:40:002.5[facility] QwrdcrpXIXDGQDRQI0667-82-67 09:40:007.5[facility] [place] WBYKOUVLER0417-16-70 09:40:000.6[facility] MtrdvxgIDTQOQAWFQ0802-01-15 09:40:008.4 [facility] HqdrnxnHLFKOXXGHV9771-81-86 09:40:000.2[facility] HermannHEMATOLOGY 2017-11-14 09:40:0068.4[facility] SmepnjqFILZFMZBRW1768-89-06 09:40:0022.4[facility] LabjvngXOFWFXYKXH5721-13-29 09:40:0080.6[facility] JtjtszvPPBBZYEWWY4998-04-01 09:40:0027.6[facility] OpsnbwqTJSVSGZJKE7990-20-85 09:40:008.9[facility] OTZKOHIRDW0916-35-29 09:40:003.43[facility] EeywovfYMXHUUAQQY6114-01-52 09:40:00 11.0[facility] BbjckklPEICKSMSJG0652-04-46 09:40:14402Xaonpoof HermannHEMATOLOGY 2017-11-14 09:40:009.0[facility] ZzovdooHLXAOXWPYG3227-87-06 09:40:00 Test Item Value Reference Range Interpretation Comments MCH (test code = MCH) 25.8 pg 27.0-31.0 [facility] PiartljBKXONLENZY2040-44-61 09:40:0021.1[facility] HermannHEMATOLOGY 2017-11-14 09:40:0032.1[facility] HermannCHEM XKMWT8572-02-87 09:33:0061[facility] HermannCHEM TBNBI3328-76-12 09:33:003.4[facility] HermannCHEM QNNEJ0511-04-40 09:33:85987Mbqbnvoj HermannCHEM HPDFT2813-25-80 09:33:67146Pzliddqe HermannCHEM GVHCB8200-75-35 09:33:008.3[facility] HermannCHEM PODNE4734-77-50 09:33:0012.4 [facility] HermannCHEM CGLUC1292-11-73 09:33:0029[facility] HermannCHEM PANEL 2017-11-13 09:33:000.91[facility] HermannCHEM OISJZ0704-74-81 09:33:0014[facility] HermannCHEM GBWUS0362-22-66 09:33:44171Mqotqydr BnepjlmDKYBJUBJCK9725-34-35 09:33:001+ *ABN*(11/13/17 3:33 AM)[facility] IwignpbYCDEQLFSYW5705-10-73 09:33:000.1 [facility] BciukxaKMLWVFGAIP1435-72-68 09:33:0075.0[facility] HermannHEMATOLOGY 2017-11-13 09:33:002.1[facility] DtgsdyhMSQTFAQXJM8663-21-75 09:33:0010.1[facility] YkgfelaHBQWFIIWBF7534-57-64 09:33:001.3[facility] AmbtyetXHBCJYIZXQ9618-65-15 09:33:009.3[facility] KgigkqgKGFPBUCXUN0968-47-57 09:33:0015.6[facility] HLVOHKMJBQ1433-03-03 09:33:0081.2[facility] PoostbxNLRAPQIYAH5669-39-77 09:33:00 31.5[facility] ThktceeNYHLMVHJLC3011-44-69 09:33:00 Test Item Value Reference Range Interpretation Comments MCH (test code = MCH) 25.6 pg 27.0-31.0 [facility] EfmurwmUCIMJLPQBB8086-50-97 09:33:008.0[facility] HermannHEMATOLOGY 2017-11-13 09:33:0025.4[facility] VwggxopQSHPRBPGUD7420-64-56 09:33:003.13[facility] GqhwlxdVDFAPVMUGT0887-94-39 09:33:0013.5[facility] JiobfteEESZFDYYIL4289-08-75 09:33:24275Isjuskzc EwhwvnqQNTIFSBAYB2069-24-60 09:33:009.1[facility] TWVLMESMIU9055-42-00 09:33:0021.5[facility] TacgmmaDQUUORPFVRCA2498-39-70 12:21:00 14.3[facility] ArjuwtrLASZUTJVMLFV3439-34-91 12:21:0049[facility] [place] JGLTBQPXXHFY6286-98-75 12:21:35444Bspggzcp BcsadehSVHKWGIAOBRE8828-49-20 12:21:009.0[facility] RmqetywGUJEDFPCVPZX2807-13-07 12:21:02238Psqzbbfa Rex NWLLUPRZSWRE0512-35-50 12:21:0025[facility] IbrcztdKZYQSLXPCXWK0735-45-48 12:21:00 140[facility] XujyziuETYFDRJDWOWO5441-77-17 12:21:004.3[facility] LBRJYOBWVKQJ6555-68-77 12:21:0014[facility] IemjubzPUMIGTUPWKUR7073-06-28 12:21:00 1.09[facility] ZnfbopoALWXFTZTJT3361-59-28 12:21:00 Test Item Value Reference Range Interpretation Comments MCH (test code = MCH) 25.5 pg 27.0-31.0 [facility] UabkdxkCQFXAVDVCQ7339-96-46 12:21:0082.0[facility]annHEMATOLOGY 2017-11-12 12:21:0021.6[facility] KreqawrVVTRHOBSSE0180-79-33 12:21:0031.2[facility] ZgkwjuxXTVBEVBVQH6564-76-94 12:21:003.66[facility] UrlqiyfTJKGTRNEBI7387-05-91 12:21:0030.0[facility] UglgwquYXUCRKKXSD3740-25-12 12:21:009.4[facility] SWYLVPKKVY1243-76-83 12:21:0019.6[facility] UtwrwruVERFYFFZVI2589-10-75 12:21:00 9.7[facility] CbjvarzOYCHIDLLBQ9566-89-70 12:21:30845Cxfqbqui HermannHEMATOLOGY 2017-11-12 12:21:00Normal (11/12/17 6:21 AM)[facility] OrxcjdaCDKXPDOZOH6113-97-75 12:21:0092.7[facility] YeqsjycDZHZGMTXEA4405-44-95 12:21:000.2[facility] RZRUGZMSGR4143-51-99 12:21:001+ *ABN*(11/12/17 6:21 AM)[facility]ann[facility]OLOGY 2017-11-12 12:21:001.2[facility] KrbfubxXIVVXTRZOZ3064-75-77 12:21:001.1[facility] KuuhqaeXHQKIURKGD1973-06-38 12:21:000.1[facility] WoyiywlOBTSBLQHKR2834-79-86 12:21:0018.2[facility] DqmhwfuNGPEBDMTHT4128-58-08 12:21:006.1[facility] TUMOR ZHMAGLG0013-16-55 12:21:001.8[facility] HermannTUMOR SFYZTDX9078-67-03 12:21:000.5[facility] HermannTUMOR RNOIPZN2288-73-73 12:21:008.1[facility] CHEM ZUIIE1655-04-74 11:26:001.2[facility] HermannCHEM TXLNV8100-01-79 05:45:002.4 [facility] NITIZ3919-37-53 04:50:00None Seen (11/10/17 10:50 PM) [facility] NXIUG2301-78-32 04:50:00Moderate *ABN*(11/10/17 10:50 PM)[facility] BZSUR1560-65-36 04:50:00Negative (11/10/17 10:50 PM) [facility] UTRFH2501-03-44 04:50:000.2[facility] YHVXI4431-53-85 04:50:00>=1.030 *ABN*(11/10/17 10:50 PM)[facility] JACWO7454-52-11 04:50:00Slight Cloudy (11/10/17 10:50 PM)[facility] BUOEI9010-67-06 04:50:00Yellow *NA*(11/10/17 10:50 PM)[facility] YFBTV4715-73-98 04:50:00Negative (11/10/17 10:50 PM)[facility] UAKDG9536-27-28 04:50:00 Test Item Value Reference Range Interpretation Comments UA pH (test code = UA pH) 5.5 1 5.0-8.0 [facility] TLCYB7651-12-17 04:50:00Moderate *ABN*(11/10/17 10:50 PM)[facility] RPZIN2434-28-87 04:50:00Negative *NA*(11/10/17 10:50 PM)[facility] XWYWM4649-42-84 04:50:00Trace *ABN*(11/10/17 10:50 PM)[facility]annCHEM DGDTC0173-24-02 04:31:292.3[facility]annHEMATOLOGY 2017-11-11 04:31:29 Test Item Value Reference Range Interpretation Comments PT (test code = PT) 15.2 s 12.0-14.7 [facility] JcrbeblYPVAWWWBDI4081-33-69 04:31:29 Test Item Value Reference Range Interpretation Comments INR (test code = INR) 1.19 1 0.85-1.17 [facility] FzzzjwbTXWHABCOBB7899-20-54 04:31:29 Test Item Value Reference Range Interpretation Comments PTT (test code = PTT) 28.5 s 22.9-35.8 [facility]XOLEJYZAZE8265-01-44 04:31:290.1[facility]annHE[facility]OLOG[facility] 2017-11-11 04:31:290.1[facility] HermannCALCIUM, EGANLWC2889-54-52 06:28:00 Test Item Value Reference Range Interpretation Comments CALCIUM IONIZED (BEAKER) (test 1.10 mmol/L 1.12-1.27 L code = 698) PH, BLOOD (BEAKER) (test code = 7.34 1810) PFOYFSARKY4482-34-37 05:52:00 Test Item Value Reference Range Interpretation Comments PHOSPHORUS (BEAKER) (test code = 3.5 mg/dL 2.3-4.7 604) ITVGSBNXF5519-14-31 05:52:00 Test Item Value Reference Range Interpretation Comments MAGNESIUM (BEAKER) (test code = 2.0 mg/dL 1.6-2.6 627) BASIC METABOLIC PAFQB9117-03-59 05:52:00 Test Item Value Reference Range Interpretation [...] PATIEN TS. CBC W/PLT COUNT & AUTO CTKGAIKJETGC6684-99-89 05:28:00 Test Item Value Reference Range Interpretation [...] PERCENT (BEAKER) (test code = 2801) CALCIUM, HKYIVGN0360-39-84 06:34:00 Test Item Value Reference Range Interpretation Comments CALCIUM IONIZED (BEAKER) (test 1.11 mmol/L 1.12-1.27 L code = 698) PH, BLOOD (BEAKER) (test code = 7.41 1810) [id number] 05:05:00 Test Item Value Reference Range Interpretation Comments PHOSPHORUS (BEAKER) (test code = 2.9 mg/dL 2.3-4.7 604) [id number] 05:05:00 Test Item Value Reference Range Interpretation Comments MAGNESIUM (BEAKER) (test code = 1.9 mg/dL 1.6-2.6 627) BASIC METABOLIC [id number] 05:05:00 Test Item Value Reference Range Interpretation [...] PATIEN TS. CBC W/PLT COUNT & AUTO [id number] 04:46:00 Test Item Value Reference Range Interpretation [...] = 2801) RAD, CHEST, 1 VIEW, NON [id number] 09:05:00Reason for exam:->s/p surgery/intubation/CTShould this be performed at the bedside?->YesFINAL REPORT Chest one view compared to May 25, 2017 Discussion: Right chest tube is removed. Left-sided drainage tubes remain. Ill- defined opacities both lung bases are similar. There may be a small right effusion. No pneumothorax. Signed: Franco Wilkinson Verified Date/Time: 05/26/2017 09:05:29 Reading Location: [facility] Radiology Reading Room POCT-GLUCOSE [id number] 07:34:00 Test Item Value Reference Range Interpretation Comments POC-GLUCOSE METER 146 mg/dL 70-[address] [facility] 67[address] (BEAKER) (test code = LIT Gandara [facility] 1538) [address] POCT-GLUCOSE [id number] 07:34:00 Test Item Value Reference Range Interpretation Comments POC-GLUCOSE METER 130 mg/dL 70-[address] [facility] 67[facility] (BEAKER) (test code = MIRTHAAL Juliocesar [facility] 1538) [address] VITAMIN B12 AND [id number] 07:15:00 Test Item Value Reference Range Interpretation Comments VITAMIN B12 (BEAKER) (test code = 1074 pg/mL 213-816 H 774) FOLATE (BEAKER) (test code = 362) 10.9 ng/mL >=7.0 [id number] 06:44:00 Test Item Value Reference Range Interpretation Comments MAGNESIUM (BEAKER) (test code = 2.4 mg/dL 1.6-2.6 627) BASIC METABOLIC [id number] 06:44:00 Test Item Value Reference Range Interpretation [...] PATIEN TS. CBC W/PLT COUNT & AUTO [id number] 06:15:00 Test Item Value Reference Range Interpretation [...] PERCENT (BEAKER) (test code = 2801) CALCIUM, [id number] 06:10:00 Test Item Value Reference Range Interpretation Comments CALCIUM IONIZED (BEAKER) (test 1.07 mmol/L 1.12-1.27 L code = 698) PH, BLOOD (BEAKER) (test code = 7.34 1810) [id number] 17:12:00 Test Item Value Reference Range Interpretation Comments POTASSIUM (BEAKER) (test code = 3.7 meq/L 3.5-5.1 379) [id number] 17:12:00 Test Item Value Reference Range Interpretation Comments MAGNESIUM (BEAKER) (test code = 1.9 mg/dL 1.6-2.6 627) RAD, CHEST, 1 VIEW, NON [id number] 09:40:00Reason for exam:->s/p surgery/intubation/CTShould this be performed [...] MDReport Verified Date/Time: 05/25/2017 09:40:39 Reading Location: [address] Neuro ReadingRoom CHIAL CULTURE + GRAM [id number] 09:36:00 Test Item Value Reference Range Interpretation Comments CULTURE (BEAKER) <1+ Normal respiratory (test code = 1095) eugenio present GRAM STAIN RESULT 1+ WBCs (BEAKER) (test code = 1123) GRAM STAIN RESULT No organisms seen (BEAKER) (test code = 79834) SPUTUM CULTURE + GRAM [id number] 09:18:00 Test Item Value Reference Range Interpretation Comments CULTURE (BEAKER) 2+ Normal respiratory (test code = 1095) eugenio present GRAM STAIN RESULT 3+ WBCs (BEAKER) (test code = 1123) GRAM STAIN RESULT 0-5 epithelial cells (BEAKER) (test code = 94574) GRAM STAIN RESULT <1+ gram positive cocci (BEAKER) (test code = in pairs 19331) CALCIUM, [id number] 04:00:00 Test Item Value Reference Range Interpretation Comments CALCIUM IONIZED (BEAKER) (test 1.10 mmol/L 1.12-1.27 L code = 698) PH, BLOOD (BEAKER) (test code = 7.36 1810) OXYGEN SATURATION, [id number] 03:59:00 Test Item Value Reference Range Interpretation Comments O2 SATURATION (MEASURED) (BEAKER) 67.2 % (test code = 1455) BASIC METABOLIC [id number] 03:53:00 Test Item Value Reference Range Interpretation [...] S NOT APPLICABLE FOR DIALYSIS PATIEN TS. [id number] 03:51:00 Test Item Value Reference Range Interpretation Comments PHOSPHORUS (BEAKER) (test code = 2.7 mg/dL 2.3-4.7 604) [id number] 03:51:00 Test Item Value Reference Range Interpretation Comments MAGNESIUM (BEAKER) (test code = 2.1 mg/dL 1.6-2.6 627) CBC W/PLT COUNT & AUTO [id number] 03:33:00 Test Item Value Reference Range Interpretation [...] = 2801) RAD, CHEST, 1 VIEW, NON [id number] 07:24:00Reason for exam:->s/p surgery/intubation/CTShould this be performed at the bedside?->YesFINAL REPORT Chest, one view. HISTORY: Postop COMPARISON: 05/23/2017 IMPRESSION: Supporting hardware unchanged in position. No pneumothorax. Trace left pleural effusion. Mild interstitial edema. Unchanged enlargement of the cardiomediastinal silhouette. Mild left basilar atelectasis. Signed: [facility] Verified Date/Time: 05/24/2017 07:24:37 Reading Location: [facility] [id number] CT Body Reading Room LACTIC ACID, ARTERIAL, WHOLE BLOOD 2017-05-24 05:44:00 Test Item Value Reference Range Interpretation Comments LACTATE BLOOD ARTERIAL (2) 1.8 mmol/L 0.5-2.2 (BEAKER) (test code = 2874) Effective 01/10/2016: Units/Reference Range ChangeNew: 0.5-2.2 mmol/L Previous: 5-20 mg/dLBASIC METABOLIC [id number] 05:42:00 Test Item Value Reference Range Interpretation [...] APPLICABLE FOR DIALYSIS PATIEN TS. BLOOD GAS, [id number] 05:34:00 Test Item Value Reference Range Interpretation [...] (BEAKER) 37.0 C (test code = 1818) [id number] 05:28:00 Test Item Value Reference Range Interpretation Comments PHOSPHORUS (BEAKER) (test code = 4.7 mg/dL 2.3-4.7 604) [id number] 05:28:00 Test Item Value Reference Range Interpretation Comments MAGNESIUM (BEAKER) (test code = 2.3 mg/dL 1.6-2.6 627) OXYGEN SATURATION, [id number] 05:13:00 Test Item Value Reference Range Interpretation Comments O2 SATURATION (MEASURED) (BEAKER) 66.1 % (test code = 1455) CALCIUM, [id number] 05:13:00 Test Item Value Reference Range Interpretation Comments CALCIUM IONIZED (BEAKER) (test 1.08 mmol/L 1.12-1.27 L code = 698) PH, BLOOD (BEAKER) (test code = 7.29 1810) CBC W/PLT COUNT & AUTO [id number] 05:11:00 Test Item Value Reference Range Interpretation [...] (BEAKER) (test code = 2801) BLOOD GAS, [id number] 23:38:00 Test Item Value Reference Range Interpretation [...] code = 1819) 40.0 % HEMOGLOBIN AND [id number] 23:38:00 Test Item Value Reference Range Interpretation Comments HEMOGLOBIN (BEAKER) (test code = 7.6 g/dL 12.0-15.0 L 410) HEMATOCRIT (BEAKER) (test code = 22.0 % 36.0-45.0 L 411) Done at stat lab.BLOOD GAS, [id number] 16:58:00 Test Item Value Reference Range Interpretation [...] (test code = 1819) 50.0 % GLUCOSE-STAT [id number] 16:58:00 Test Item Value Reference Range Interpretation Comments GLUCOSE RANDOM (BEAKER) (test code 168 mg/dL 70-110 H = 652) BLOOD GAS, [id number] 16:24:00 Test Item Value Reference Range Interpretation [...] 40.0 % CBC W/PLT COUNT & AUTO [id number] 15:55:00 Test Item Value Reference Range Interpretation [...] = 2801) RAD, CHEST, 1 VIEW, NON [id number] 15:35:00Reason for exam:->immediate post cardiothoracic surgery/intubationShould this [...] Wilkinson Verified Date/Time: 05/23/2017 15:35:23 Reading Location: [address] Reading Room THROMBOELASTOGRAPH (TEG)2017-05-23 15:00:00 Test Item [...] % 0.0-5.0 code = 1414) BASIC METABOLIC [id number] 14:05:00 Test Item Value Reference Range Interpretation [...] DIALYSIS PATIEN TS. LACTIC ACID, ARTERIAL, WHOLE [id number] 14:01:00 Test Item Value Reference Range Interpretation Comments LACTATE BLOOD 2.1 mmol/L 0.5-2.2 Specimen sligh tly ARTERIAL (2) (BEAKER) hemoly zed (test code = 2874) Effective 01/10/2016: Units/Reference Range ChangeNew: 0.5-2.2 mmol/L Previous: 5-20 mg/dLGLUCOSE-STAT [id number] 13:42:00 Test Item Value Reference Range Interpretation Comments GLUCOSE RANDOM (BEAKER) (test code 105 mg/dL 70-110 = 652) SODIUM NA-STAT [id number] 13:42:00 Test Item Value Reference Range Interpretation Comments SODIUM (BEAKER) (test code = 381) 137 meq/L 135-148 POTASSIUM-STAT [id number] 13:42:00 Test Item Value Reference Range Interpretation Comments POTASSIUM (BEAKER) (test code = 4.2 meq/L 3.6-5.5 379) BLOOD GAS, [id number] 13:42:00 Test Item Value Reference Range Interpretation [...] 1819) 60.0 % HGB/HCT (H&H) - STAT [id number] 13:42:00 Test Item Value Reference Range Interpretation Comments HEMOGLOBIN (BEAKER) (test code = 9.1 g/dL 12.0-15.0 L 410) HEMATOCRIT (BEAKER) (test code = 27.0 % 36.0-45.0 L 411) CALCIUM, [id number] 13:42:00 Test Item Value Reference Range Interpretation Comments CALCIUM IONIZED (BEAKER) (test 1.17 mmol/L 1.12-1.27 code = 698) PH, BLOOD ([facility]) (test code = 7.37 1810) OXYGEN SATURATION, [id number] 13:41:00 Test Item Value Reference Range Interpretation Comments O2 SATURATION (MEASURED) ([facility]) 53.2 % (test code = 1455) [id number] 13:02:00 Test Item Value Reference Range Interpretation Comments ACTIVATED CLOTTING TIME 109 sec TEST ED AT [place] [address] ([facility]) (test code = [place] [address]) [address] [id number] 13:02:00 Test Item Value Reference Range Interpretation Comments ACTIVATED CLOTTING TIME 543 sec TEST ED AT [place] [address] ([facility]) (test code = [place] [address]) [address] [id number] 13:02:00 Test Item Value Reference Range Interpretation Comments ACTIVATED CLOTTING TIME 477 sec TEST ED AT [place] [address] ([facility]) (test code = [place] [address]) [address] [id number] 13:02:00 Test Item Value Reference Range Interpretation Comments ACTIVATED CLOTTING TIME 538 sec TEST ED AT [place] [address] ([facility]) (test code = [place] [address]) [address] [id number] 13:02:00 Test Item Value Reference Range Interpretation Comments ACTIVATED CLOTTING TIME 610 sec TEST ED AT [place] [address] ([facility]) (test code = [place] [address]) [address] [id number] 13:02:00 Test Item Value Reference Range Interpretation Comments ACTIVATED CLOTTING TIME 367 sec TEST ED AT [place] [address] ([facility]) (test code = [place] [address]) [address] [id number] 13:02:00 Test Item Value Reference Range Interpretation Comments ACTIVATED CLOTTING TIME 516 sec TEST ED AT [place] [address] ([facility]) (test code = [place] [address]) [address] BLOOD GAS, [id number] 12:22:00 Test Item Value Reference Range Interpretation Comments PH ARTERIAL ([facility]) (test code = 7.29 7.35-7.45 L 383) PCO2 ARTERIAL ([facility]) (test code 42 mmHg 35-45 = 384) [...] (test code = 1819) 100.0 % GLUCOSE-STAT [id number] 12:22:00 Test Item Value Reference Range Interpretation Comments GLUCOSE RANDOM (BEAKER) (test code 141 mg/dL 70-110 H = 652) HGB/HCT (H&H) - STAT [id number] 12:22:00 Test Item Value Reference Range Interpretation Comments HEMOGLOBIN (BEAKER) (test code = 8.6 g/dL 12.0-15.0 L 410) HEMATOCRIT (BEAKER) (test code = 25.0 % 36.0-45.0 L 411) SODIUM NA-STAT [id number] 12:19:00 Test Item Value Reference Range Interpretation Comments SODIUM (BEAKER) (test code = 381) 137 meq/L 135-148 POTASSIUM-STAT [id number] 12:19:00 Test Item Value Reference Range Interpretation Comments POTASSIUM (BEAKER) (test code = 4.5 meq/L 3.6-5.5 379) SODIUM NA-STAT [id number] 11:50:00 Test Item Value Reference Range Interpretation Comments SODIUM (BEAKER) (test code = 381) 135 meq/L 135-148 POTASSIUM-STAT [id number] 11:50:00 Test Item Value Reference Range Interpretation Comments POTASSIUM (BEAKER) (test code = 5.1 meq/L 3.6-5.5 379) BLOOD GAS, [id number] 11:50:00 Test Item Value Reference Range Interpretation [...] (test code = 1819) 100.0 % GLUCOSE-STAT [id number] 11:50:00 Test Item Value Reference Range Interpretation Comments GLUCOSE RANDOM (BEAKER) (test code 131 mg/dL 70-110 H = 652) HGB/HCT (H&H) - STAT [id number] 11:50:00 Test Item Value Reference Range Interpretation Comments HEMOGLOBIN (BEAKER) (test code = 6.7 g/dL 12.0-15.0 L 410) HEMATOCRIT (BEAKER) (test code = 20.0 % 36.0-45.0 L 411) CALCIUM, [id number] 11:50:00 Test Item Value Reference Range Interpretation Comments CALCIUM IONIZED (BEAKER) (test 1.19 mmol/L 1.12-1.27 code = 698) PH, BLOOD (BEAKER) (test code = 7.32 1810) BLOOD GAS, [id number] 11:13:00 Test Item Value Reference Range Interpretation [...] (test code = 1819) 70.0 % GLUCOSE-STAT [id number] 11:13:00 Test Item Value Reference Range Interpretation Comments GLUCOSE RANDOM (BEAKER) (test code 142 mg/dL 70-110 H = 652) HGB/HCT (H&H) - STAT [id number] 11:13:00 Test Item Value Reference Range Interpretation Comments HEMOGLOBIN (BEAKER) (test code = 6.7 g/dL 12.0-15.0 L 410) HEMATOCRIT (BEAKER) (test code = 20.0 % 36.0-45.0 L 411) POTASSIUM-STAT [id number] 11:13:00 Test Item Value Reference Range Interpretation Comments POTASSIUM (BEAKER) (test code = 6.0 meq/L 3.6-5.5 HH 379) SODIUM NA-STAT [id number] 11:12:00 Test Item Value Reference Range Interpretation Comments SODIUM (BEAKER) (test code = 381) 135 meq/L 135-148 POTASSIUM-STAT [id number] 10:57:00 Test Item Value Reference Range Interpretation Comments POTASSIUM (BEAKER) (test code = 5.5 meq/L 3.6-5.5 379) BLOOD GAS, [id number] 10:57:00 Test Item Value Reference Range Interpretation [...] code = 1819) 70.0 % SODIUM NA-STAT [id number] 10:57:00 Test Item Value Reference Range Interpretation Comments SODIUM (BEAKER) (test code = 381) 134 meq/L 135-148 L GLUCOSE-STAT [id number] 10:57:00 Test Item Value Reference Range Interpretation Comments GLUCOSE RANDOM (BEAKER) (test code 153 mg/dL 70-110 H = 652) HGB/HCT (H&H) - STAT [id number] 10:57:00 Test Item Value Reference Range Interpretation Comments HEMOGLOBIN (BEAKER) (test code = 7.3 g/dL 12.0-15.0 L 410) HEMATOCRIT (BEAKER) (test code = 21.0 % 36.0-45.0 L 411) BLOOD GAS, [id number] 10:31:00 Test Item Value Reference Range Interpretation [...] code = 1819) 70.0 % SODIUM NA-STAT [id number] 10:31:00 Test Item Value Reference Range Interpretation Comments SODIUM (BEAKER) (test code = 381) 134 meq/L 135-148 L POTASSIUM-STAT [id number] 10:31:00 Test Item Value Reference Range Interpretation Comments POTASSIUM (BEAKER) (test code = 5.6 meq/L 3.6-5.5 H 379) GLUCOSE-STAT [id number] 10:31:00 Test Item Value Reference Range Interpretation Comments GLUCOSE RANDOM (BEAKER) (test code 166 mg/dL 70-110 H = 652) HGB/HCT (H&H) - STAT [id number] 10:31:00 Test Item Value Reference Range Interpretation Comments HEMOGLOBIN (BEAKER) (test code = 6.5 g/dL 12.0-15.0 L 410) HEMATOCRIT (BEAKER) (test code = 19.0 % 36.0-45.0 L 411) BLOOD GAS, [id number] 10:06:00 Test Item Value Reference Range Interpretation [...] code = 1819) 80.0 % BLOOD GAS, [id number] 10:06:00 Test Item Value Reference Range Interpretation [...] code = 1819) 80.0 % SODIUM NA-STAT [id number] 10:06:00 Test Item Value Reference Range Interpretation Comments SODIUM (BEAKER) (test code = 381) 131 meq/L 135-148 L HGB/HCT (H&H) - STAT [id number] 10:06:00 Test Item Value Reference Range Interpretation Comments HEMOGLOBIN (BEAKER) (test code = 5.3 g/dL 12.0-15.0 LL 410) HEMATOCRIT (BEAKER) (test code = 16.0 % 36.0-45.0 L 411) POTASSIUM-STAT [id number] 10:05:00 Test Item Value Reference Range Interpretation Comments POTASSIUM (BEAKER) (test code = 4.5 meq/L 3.6-5.5 379) GLUCOSE-STAT [id number] 10:05:00 Test Item Value Reference Range Interpretation Comments GLUCOSE RANDOM (BEAKER) (test code 169 mg/dL 70-110 H = 652) BLOOD GAS, [id number] 08:10:00 Test Item Value Reference Range Interpretation [...] (test code = 1819) 87.0 % GLUCOSE-STAT [id number] 08:10:00 Test Item Value Reference Range Interpretation Comments GLUCOSE RANDOM (BEAKER) (test code 113 mg/dL 70-110 H = 652) HGB/HCT (H&H) - STAT [id number] 08:10:00 Test Item Value Reference Range Interpretation Comments HEMOGLOBIN (BEAKER) (test code = 9.1 g/dL 12.0-15.0 L 410) HEMATOCRIT (BEAKER) (test code = 27.0 % 36.0-45.0 L 411) SODIUM NA-STAT [id number] 08:09:00 Test Item Value Reference Range Interpretation Comments SODIUM (BEAKER) (test code = 381) 138 meq/L 135-148 POTASSIUM-STAT [id number] 08:09:00 Test Item Value Reference Range Interpretation Comments POTASSIUM (BEAKER) (test code = 4.1 meq/L 3.6-5.5 379) CALCIUM, [id number] 08:09:00 Test Item Value Reference Range Interpretation Comments CALCIUM IONIZED (BEAKER) (test 1.13 mmol/L 1.12-1.27 code = 698) PH, BLOOD (BEAKER) (test code = 7.42 1810) TROPONIN [id number] 04:51:00 Test Item Value Reference Range Interpretation [...] acute neurological disease, and persistent tachyarrhythmia.BASIC METABOLIC [id number] 04:48:00 Test Item Value Reference Range Interpretation [...] PATIEN TS. CREATINE KINASE (CK), TOTAL AND [id number] 04:46:00 Test Item Value Reference Range Interpretation Comments CREATINE KINASE TOTAL (BEAKER) 65 U/L 29-200 (test code = 380) CREATINE KINASE-MB (BEAKER) (test 2.1 ng/mL 0.0-6.6 code = 750) CREATINE KINASE-MB INDEX (BEAKER) 3.2 % (test code = 395) CK-MB Reference Range:<6.7 Normal6.7-10.0 Borderline>10.0 AbnormalCBC W/PLT COUNT & AUTO [id number] 04:20:00 Test Item Value Reference Range Interpretation [...] 0-1 PERCENT (BEAKER) (test code = 2801) [id number] 04:14:00 Test Item Value Reference Range Interpretation Comments PARTIAL THROMBOPLASTIN TIME 74.8 seconds 22.5-36.0 H (BEAKER) (test code = 760) HEMOGLOBIN [id number] 21:12:00 Test Item Value Reference Range Interpretation Comments HEMOGLOBIN A1C (BEAKER) (test code = 6.0 % 4.3-6.1 368) [id number] 19:53:00 Test Item Value Reference Range Interpretation Comments FERRITIN (BEAKER) (test code = 361) 58 ng/mL 5-275 TROPONIN [id number] 19:49:00 Test Item Value Reference Range Interpretation Comments TROPONIN I (BEAKER) (test code = 0.69 ng/mL 0.00-0.03 397) Troponin I (TnI) levels must be [...] 20-55 L (test code = 2590) LIPID [id number] 19:30:00 Test Item Value Reference Range Interpretation [...] 130-159 High 160-189 Very High >=190BASIC METABOLIC [id number] 19:30:00 Test Item Value Reference Range Interpretation [...] PATIEN TS. RAD, CHEST, 1 VIEW, NON [id number] 19:30:00Reason for exam:->chest painShould this be performed [...] is no acute bony abnormality. Signed: Bear Soto Verified Date/Time: 05/22/2017 19:30:20 Reading Location: [address] Reading Room [id number] 19:26:00 Test Item Value Reference Range Interpretation Comments PARTIAL THROMBOPLASTIN TIME 27.3 seconds 22.5-36.0 ([facility]) (test code = 760) PROTHROMBIN TIME/[id number] 19:25:00 Test Item Value Reference Range Interpretation Comments PROTIME ([facility]) (test code = 14.3 seconds 11.7-14.7 759) INR ([facility]) (test code = 370) 1.1 <=5.9 RECOMMENDED COUMADIN/WARFARIN INR THERAPY RANGESSTANDARD DOSE: 2.0 - 3.0 Includes: PROPHYLAXIS forvenous thrombosis, systemic embolization; TREATMENT for venous thrombosis and/or pulmonary embolus.HIGH RISK: Target INR is 2.5-3.5 for patients with mechanical heart valves.POCT-GLUCOSE [id number] 19:10:00 Test Item Value Reference Range Interpretation Comments POC-GLUCOSE METER 231 mg/dL 70-[address] [facility] [address] ([facility]) (test code = [place] 1538) [address]
--- OUTSIDE RECORDS SUMMARY | 2020-06-20 16:16 | XMS REPORT | Summary of Care ---
:1940 Author Organization [facility] - Health Address [address] [place] [address] Care Team Providers Name Role Phone Milka Primary Care Provider MD Lex Unavailable Osmar Whitney [employer] Examin[employer] Carmelina Rome MD Surgeon MD [employer] Teacher Encounter Details Date Type Department Care Team Description 05/08/2020 Orders Only [facility] Doctor Unassigned, No [address] [facility] [place] [address] [address] [place] [address] Allergies Active Allergy Reactions Severity Noted Date Comments Iodine Hives High 12/16/2016 documented as of this encounter (statuses as of 05/22/2020) Medications Medication Sig Dispensed Refills Start Date [...] tabletIndications: mouth daily. Coronary artery disease involving sun'aq heart without angina pectoris, unspecified vessel or lesion type, S/P AAA repair, Cigarette smoker clopidogrel 75 mg Take 1 tablet by 30 tablet 5 04/09/2019 Active tablet mouth daily. metoprolol succinate Take 0.5 tablets 30 tablet 0 05/10/2020 Active XL 25 mg 24 hr by mouth daily. tabletIndications: Please call office Coronary artery and schedule disease involving appointment for sun'aq heart without more refills. 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 [id number] SHEILA GARCIA [id number] MELINA DE LA FUENTE [id number] 2016-Nicolas carroll documented as of this encounter
--- OUTSIDE RECORDS SUMMARY | 2020-06-20 16:16 | XMS REPORT | Summary of Care ---
:1940 Author Organization [facility] Address [address] [place] [address] Care Team Providers Name Role Phone Milka Primary Care Provider MD Lex Unavailable Osmar Whitney Sports Statistician Carmelina Rome MD Surgeon MD Chance Tissue Technologist Reason for Visit Reason Comments Refill Request Appointment Encounter Details Date Type Department Care Team Description 05/16/2020 Telephone [place] Ladarius Burnett M D Refill Request; Cardiology- [address] Appointment [address] [facility] [place], [place] [id number] Allergies Active Allergy Reactions Severity Noted Date Comments Iodine Hives High 12/16/2016 documented as of this encounter (statuses as of 05/16/2020) Medications Medication Sig Dispensed Refills Start Date [...] tabletIndications: mouth daily. Coronary artery disease involving [place] heart without angina pectoris, unspecified vessel or lesion type, S/P AAA repair, Cigarette smoker clopidogrel 75 mg Take 1 tablet by 30 tablet 5 04/09/2019 Active tablet mouth daily. metoprolol succinate Take 0.5 tablets 30 tablet 0 05/10/2020 Active XL 25 mg 24 hr by mouth daily. tabletIndications: Please call office Coronary artery and schedule disease involving appointment for [place] heart without more refills. 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 MUST CALL FOR APPOINTMENT. x2 letters have been mailed requesting appointment. Per Dr. Lex monroe one more ONE time refill for metoprolol Succ. [phone] signed by Jah Cadet MA at 05/16/2020 1:44 PM CDTdocumented in this encounter Plan of Treatment Health [...] Addre ss Type Group MEDICARE MEDICARE PART [id number] 2005-Chin [phone] Medicare A & B t 2 [id number] SHEILA GARCIA [id number] MELINA DE LA FUENTE [id number] 2016-Nicolas carroll documented as of this encounter
--- OUTSIDE RECORDS SUMMARY | 2020-06-20 16:16 | XMS REPORT | Summary of Care ---
:1940 Author Organization [facility] - Health Address [address] [place] [id number] Care Team Providers Name Role Phone Milka Primary Care Provider MD Lex Unavailable Osmar Whitney Maintainer Central Office Carmelina Rome MD Surgeon MD Chance Textiles Sales Representative Encounter Details Date Type Department Care Team Description 05/16/2020 Orders Only [facility] Doctor Unassigned, No [address] [facility] [place] [address] [address] [place] [address] Allergies Active Allergy Reactions Severity Noted Date Comments Iodine Hives High 12/16/2016 documented as of this encounter (statuses as of 05/31/2020) Medications Medication Sig Dispensed Refills Start Date [...] tabletIndications: mouth daily. Coronary artery disease involving [place] heart without angina pectoris, unspecified vessel or lesion type, S/P AAA repair, Cigarette smoker clopidogrel 75 mg Take 1 tablet by 30 tablet 5 04/09/2019 Active tablet mouth daily. metoprolol succinate Take 0.5 tablets 30 tablet 0 05/10/2020 Active XL 25 mg 24 hr by mouth daily. tabletIndications: Please call office Coronary artery and schedule disease involving appointment for [place] heart without more refills. 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 Medicare A & B t 2 [id number] SHEILA GARCIA [id number] MELINA DE LA FUENTE [id number] 2016-Nicolas carroll documented as of this encounter
--- NOTE | 2020-06-20 17:21 | RAD REPORT ---
EXAM DESCRIPTION: CT - Chest Abd Pelvis Wo Con - 06/20/2020 4:54 pm CLINICAL HISTORY: fall, allergic to iodine, eval for rib fractures COMPARISON: Abdomen Pelvis Wo Contrast dated 06/04/2019 TECHNIQUE: Axial 5 millimeter thick images of the chest, abdomen and pelvis were obtained without IV contrast. Oral contrast was administered. All CT scans are performed using dose optimization technique as appropriate and may include automated exposure control or mA/KV adjustment according to patient size. FINDINGS: No pneumothorax or suspicious mass lesion. Small granulomatous calcifications are present. In the posterior right upper lobe there is minimal interstitial and alveolar opacities present. Give n the trauma history, minimal pulmonary contusion would be possible. Infiltrate or scarring changes a re possible for this very minimal finding. Malignant etiology is considered very unlikely. No pleural fluid collection. No chest wall mass or abnormal axillary lymphadenopathy seen. Mediastinal and hil ar regions show no mass or lymphadenopathy. No acute cardiac finding. No pericardial thickening or e ffusion. CABG surgical changes are present. There is incomplete bony union of the sternotomy. No displaced rib fractures are present. There is slight cortical irregularity of the posterolateral n inth and tenth ribs. Incomplete fractures would be possible given the trauma history. No pathologic b one process. No vertebral body compression fracture there is wedge compression of the T10 body but no evidence for an acute fracture line. The liver, spleen and pancreas show no significant findings for non contrast imaging. Gallbladder an d biliary tree are normal. No hydronephrosis or suspicious renal mass. Isodense masses and pyelonephritis cannot be excluded on non contrast imaging. No adrenal abnormalities. No urinary bladder abnormalities. Pelvic floor asse ssment is limited due to spray artifact from the right hip prosthesis. No dilated bowel loops or focal ball bowel wall thickening. No free air, free fluid or inflammatory stranding. No hernia, mass or bulky lymphadenopathy. Patient has prominent sigmoid diverticulosis. Disc and bony degenerative changes are present. Patient has advanced degenerative change in the lower lumbar facet joints. Dense aortoiliac atherosclerotic calcifications are present. Infrarenal abdominal aortic aneurysm is present. No displaced calcifications. Aneurysm is 3.7 cm AP x 3.5 cm TR. Adjusting for measuring tech niques and image selection, no change from May 2019. IMPRESSION: No pneumothorax. Patient has minimal interstitial and alveolar opacities in the posteroi nferior right upper lobe. Given the trauma history pulmonary contusion is possible. Infiltrate or scarring etiologies are possible for the right upper lobe finding. Malignant etiology i s felt to be quite unlikely. Questionable incomplete fractures of the posterolateral right ninth and tenth ribs. No acute abdominal or pelvic finding. Infrarenal abdominal aortic aneurysm not clearly different from May 2019. CT abdomen and pelvis imaging shows no significant or suspicious finding.
[2020-06-20 17:41] LABS: Absolute Lymphocytes (CBC) 1.5 K/uL (0.7-4.9); Basophils % 0.5 % (0-1.3); Hematocrit 38.2 % (36.0-45.0); Lymphocytes % 14.9 % (15.3-44.8); MPV 9.9 fL (7.6-11.3); RBC Red Blood Cell Count 4.09 M/uL (3.86-4.86)
[2020-06-20 17:44] LABS: Protime INR 1.03
--- NOTE | 2020-06-20 17:48 | EDPHYS ---
Physician Documentation [facility] Name: Maricel Guerrero Age: 80 yrs Sex: Female : 1940 Arrival Date: 06/20/2020 Time: 16:07 Bed 6 Private MD: ED Physician Yasmani Perez HPI: 06/20 16:31 This 80 yrs old Female presents to ER via EMS with complaints of Rib pain. rn 16:31 The patient or guardian reports chest pain that is located primarily in the anterior rn chest wall. Onset: The symptoms/episode began/occurred 2 day(s) ago. The pain does not radiate. The chest pain is described as sharp. Duration: The patient or guardian reports multiple episodes, that are intermittent. Modifying factors: The symptoms are alleviated by nothing. the symptoms are aggravated by movement, palpation of area. Severity of pain: At its worst the pain was moderate in the emergency department the pain is unchanged. The patient has not experienced similar symptoms in the past. Reports fall from standing, getting up from commode, hit anterior chest and feels pain with movement and palpation. No sob. Does not take blood thinners. Reports chronic right shoulder pain, no head injury, no neck injury or pain, no back injury. No lower extremity injury or pain. . Historical: - Allergies: 16:00 Iodine; rb1 - Home Meds: 16:00 clopidogrel 75 mg Oral tab 1 tab once daily [Active]; escitalopram oxalate 10 mg Oral rb1 tab 1 tab once daily [Active]; Synthroid 25 mcg Oral tab 1 tab once daily [Active]; metoprolol succinate 25 mg oral Tb24 0.5 tab once daily [Active]; - PMHx: 16:00 AAA; Colon Cancer with metastasis to liver; Diabetes - NIDDM; Headaches; Hypertension; rb1 Hypothyroidism; - PSHx: 16:00 None; rb1 - Immunization history:: Adult Immunizations up to date. - Social history:: Smoking status: Patient reports the use of cigarette tobacco products, smokes one pack cigarettes per day. - Family history:: not pertinent. - Hospitalizations: : No recent hospitalization is reported. ROS: 16:31 Constitutional: Negative for fever, chills, and weight loss, Eyes: Negative for injury, rn pain, redness, and discharge, Neck: Negative for injury, pain, and swelling, Cardiovascular: + rib pain and injury Respiratory: Negative for shortness of breath, cough, wheezing, and pleuritic chest pain, Abdomen/GI: Negative for abdominal pain, nausea, vomiting, diarrhea, and constipation, MS/Extremity: Negative for injury and deformity, Skin: Negative for injury, rash, and discoloration, Neuro: Negative for headache, weakness, numbness, tingling, and seizure. Exam: 16:31 Constitutional: This is a well developed, well nourished patient who is awake, alert, rn and in no acute distress. Head/Face: Normocephalic, atraumatic. Neck: No midline tenderness Chest/axilla: anterior chest wall tenderness, no crepitus or ecchymosis Cardiovascular: Regular rate and rhythm. No pulse deficits. Respiratory: No increased work of breathing, no retractions or nasal flaring. Abdomen/GI: soft, mild epigastric tenderness, no rebound MS/ Extremity: Pulses equal, no cyanosis. Neurovascular intact. Full, normal range of motion. Equal circumference. Neuro: Awake and alert, GCS 15, oriented to person, place, time, and situation. Cranial nerves II-XII grossly intact. Motor strength 5/5 in all extremities. Sensory grossly intact. Cerebellar exam normal. Vital Signs: 16:00 BP 178 / 65; Pulse 60; Resp 17; Temp 97.8; Pulse Ox 96% on R/A; Weight 56.7 kg; Height rb1 5 ft. 0 in. (152.40 cm); Pain 10/10; 17:00 BP 156 / 82; Pulse 56; Resp 16; Pulse Ox 98% ; rb1 18:00 BP 159 / 85; Pulse 55; Resp 16; Pulse Ox 100% on R/A; rb1 16:00 Body Mass Index 24.41 (56.70 kg, 152.40 cm) rb1 MDM: 16:23 Patient medically screened. rn 17:45 Differential diagnosis: Blunt Chest Trauma Chest Wall Contusion Pneumothorax Pulmonary rn Contusion Rib Fracture. Data reviewed: vital signs, nurses notes, lab test result(s), radiologic studies, CT scan, and as a result, I will discharge patient. Counseling: I had a detailed discussion with the patient and/or guardian regarding: the historical points, exam findings, and any diagnostic results supporting the discharge/admit diagnosis, lab results, radiology results, the need for outpatient follow up, to return to the emergency department if symptoms worsen or persist or if there are any questions or concerns that arise at home. Response to treatment: the patient's symptoms have mildly improved after treatment, and as a result, I will discharge patient. Special discussion: Based on the patient's history, exam, and Dx evaluation, there is no indication for emergent intervention or inpatient Tx. It is understood by the patient/guardian that if the Sx's persist or worsen they need to return immediately for re-evaluation. I discussed with the patient/guardian in detail that at this point there is no indication for admission to the hospital. It is understood, however, that if the symptoms persist or worsen the patient needs to return immediately for re-evaluation. ED course: No acute fractures on ct chest, possibly old fractures of posterior ribs and compression fracture, recalls a fall 1 year ago that also involved shoulder injury/dislocation. . 06/20 16:27 Order name: CBC with Diff rn 06/20 16:27 Order name: Basic Metabolic Panel rn 06/20 16:27 Order name: Protime (+inr) rn 06/20 16:27 Order name: Ptt, Activated rn 06/20 16:27 Order name: CT Chest Abdomen Pelvis W/O Contrast; Complete Time: 17:32 rn 06/20 16:28 Order name: EKG; Complete Time: 16:29 mt 06/20 16:27 Order name: IV Start; Complete Time: 17:27 rn 06/20 16:28 Order name: EKG - Nurse/Tech; Complete Time: 16:29 mt Administered Medications: No medications were administered Disposition: 06/20/20 17:47 Discharged to Home. Impression: Rib contusion. - Condition is Stable. - Discharge Instructions: Rib Contusion. - Medication Reconciliation Form, Thank You Letter, Antibiotic Education, Prescription Opioid Use form. - Follow up: Private Physician; When: As needed; Reason: Recheck today's complaints, Re-evaluation by your physician. - Problem is new. - Symptoms have improved. Signatures: Dispatcher [employer] EDMS Katey Piedra RN RN iw Nieto, Roman, MD MD rn Barber, Rebecca, RN RN rb1 Thompson, Moriah mt Corrections: (The following items were deleted from the chart) 18:27 17:47 06/20/2020 17:47 Discharged to Home. Impression: Rib contusion. Condition is iw Stable. Forms are Medication Reconciliation Form, Thank You Letter, Antibiotic Education, Prescription Opioid Use. Follow up: Private Physician; When: As needed; Reason: Recheck today's complaints, Re-evaluation by your physician. Problem is new. Symptoms have improved. rn
--- NOTE | 2020-06-20 17:48 | ER ---
Nurse's Notes [facility] Name: Maricel Guerrero Age: 80 yrs Sex: Female : 1940 Arrival Date: 06/20/2020 Time: 16:07 Bed 6 Private MD: Diagnosis: Rib contusion Presentation: 06/20 16:00 Chief complaint: EMS states: Pt. A \T\ O x 4, fell on Friday and fell in the tub, landing rb1 on her right side. C/o right shoulder pain, and right rib pain. Has pain with inspiration. History of Diabetes, HTN, hypothyroidism, and depression. BP 158/88, NKDA, Uses a walker at home and can get up with assist. 16:00 Coronavirus screen: Client denies travel out of the [place] in the last 14 days. At this rb1 time, the client does not indicate any symptoms associated with coronavirus-19. Ebola Screen: Patient denies travel to an Ebola-affected area in the 21 days before illness onset. Initial Sepsis Screen: Does the patient meet any 2 criteria? No. Patient's initial sepsis screen is negative. Does the patient have a suspected source of infection? No. Patient's initial sepsis screen is negative. Risk Assessment: Do you want to hurt yourself or someone else? Patient reports no desire to harm self or others. Onset of symptoms was June 18, 2020. 16:00 Method Of Arrival: EMS: [facility] rb1 16:00 Acuity: WILL 3 rb1 Triage Assessment: 16:00 General: Appears in no apparent distress. comfortable, Behavior is calm, cooperative. rb1 Pain: Complains of pain in right shoulder, right ribs Pain currently is 10 out of 10 on a pain scale. Pain began Friday. Neuro: Level of Consciousness is awake, alert, obeys commands, Oriented to person, place, time, situation. Cardiovascular: Patient's skin is warm and dry. Respiratory: Airway is patent Respiratory effort is even, unlabored, Respiratory pattern is regular, symmetrical. Respiratory: Reports pain with respiration. GI: No signs and/or symptoms were reported involving the gastrointestinal system. : No signs and/or symptoms were reported regarding the genitourinary system. Musculoskeletal: Range of motion: intact in all extremities. Historical: - Allergies: 16:00 Iodine; rb1 - Home Meds: 16:00 clopidogrel 75 mg Oral tab 1 tab once daily [Active]; escitalopram oxalate 10 mg Oral rb1 tab 1 tab once daily [Active]; Synthroid 25 mcg Oral tab 1 tab once daily [Active]; metoprolol succinate 25 mg oral Tb24 0.5 tab once daily [Active]; - PMHx: 16:00 AAA; Colon Cancer with metastasis to liver; Diabetes - NIDDM; Headaches; Hypertension; rb1 Hypothyroidism; - PSHx: 16:00 None; rb1 - Immunization history:: Adult Immunizations up to date. - Social history:: Smoking status: Patient reports the use of cigarette tobacco products, smokes one pack cigarettes per day. - Family history:: not pertinent. - Hospitalizations: : No recent hospitalization is reported. Screenin:00 Abuse screen: Denies threats or abuse. Nutritional screening: No deficits noted. rb1 Tuberculosis screening: No symptoms or risk factors identified. Fall Risk Fall in past 12 months (25 points). Secondary diagnosis (15 points) impaired mobility, No IV (0 pts). Ambulatory Aid- Crutches/Cane/Walker (15 pts). Gait- Normal/Bed Rest/Wheelchair (0 pts) Mental Status- Oriented to own ability (0 pts). Total Welch Fall Scale indicates High Risk Score (45 or more points). Fall prevention measures have been instituted. Side Rails Up X 2 Placed Close to Nursing Station 1:1 Attendant Assigned Frequent Obs/Assessments Occuring Family Present and informed to notify staff if the need to leave the bedside As available patient and family educated on Fall Prevention Program and Strategies. Assessment: 16:00 General: See triage assessment. rb1 17:00 Reassessment: Patient appears in no apparent distress at this time. No changes from rb1 previously documented assessment. 18:00 Reassessment: Patient appears in no apparent distress at this time. Patient and/or rb1 family updated on plan of care and expected duration. Pain level reassessed. Patient is alert, oriented x 3, equal unlabored respirations, skin warm/dry/pink. Pt. is watching TV. Vital Signs: 16:00 BP 178 / 65; Pulse 60; Resp 17; Temp 97.8; Pulse Ox 96% on R/A; Weight 56.7 kg; Height rb1 5 ft. 0 in. (152.40 cm); Pain 10/10; 17:00 BP 156 / 82; Pulse 56; Resp 16; Pulse Ox 98% ; rb1 18:00 BP 159 / 85; Pulse 55; Resp 16; Pulse Ox 100% on R/A; rb1 16:00 Body Mass Index 24.41 (56.70 kg, 152.40 cm) [facility] ED Course: 16:00 Arm band placed on right wrist. rb1 16:00 Patient has correct armband on for positive identification. Bed in low position. Call rb1 light in reach. Side rails up X 1. Pulse ox on. NIBP on. 16:07 Patient arrived in ED. rb1 16:11 Triage completed. rb1 16:23 Yasmani Perez MD is Attending Physician. rn 16:34 Juliana Eng, MORENO is Primary Nurse. rb1 16:54 CT Chest Abdomen Pelvis W/O Contrast In Process Unspecified. EDMS 17:26 Inserted saline lock: 22 gauge in left hand, using aseptic technique. Blood collected. 4 18:19 No provider procedures requiring assistance completed. IV discontinued, intact, rb1 bleeding controlled, No redness/swelling at site. Pressure dressing applied. Administered Medications: No medications were administered Outcome: 17:47 Discharge ordered by . rn 18:19 Discharged to home via wheelchair, with family. rb1 18:19 Condition: stable 18:19 Discharge instructions given to patient, Instructed on discharge instructions, follow up and referral plans. Demonstrated understanding of instructions, follow-up care, Prescriptions given X none 18:27 Patient left the ED. iw Signatures: Dispatcher [employer] Katey Gregory RN RN Yasmani Perez MD MD rn Barber, Rebecca, MORENO RN [facility] Gwyn Garcia 4
[2020-06-20 18:08] LABS: Potassium 3.8 mmol/L (3.5-5.1)
[2020-06-20 19:25] VITALS: TEMP 97.8
[2020-06-20 19:28] VITALS: BP 159/85; O2SAT 100
--- NOTE | 2020-06-22 07:08 | EKG ---
Test Date: 2020-06-20 Test Time: 16:08:28 [employer] Winder: DANA MEASUREMENT RESULTS: Intervals: Rate: 58 NV: 116 QRSD: 84 QT: 428 QTc: 420 [place]: P: 75 NV: 116 QRS: 31 T: 60 INTERPRETIVE STATEMENTS: Sinus bradycardia Possible Anterior infarct, age undetermined Abnormal ECG Compared to ECG 05/11/2020 23:51:56 Myocardial infarct finding now present Sinus rhythm no longer present ST (T wave) deviation no longer present Electronically Signed On 06-22-20 07:04:12 CDT by Joe Molina
== END 2020-06-20 18:27 | disposition home or self-care (01) ==
LOC: ER 15:59
DX: S20.20XA Contusion of thorax, unspecified, initial encounter (principal); W18.2XXA Fall in (into) shower or empty bathtub, initial encounter; Y93.9 Activity, unspecified; Y92.9 Unspecified place or not applicable; Z85.05 Personal history of malignant neoplasm of liver; Z85.038 Personal history of other malignant neoplasm of large intestine; Z91.048 Other nonmedicinal substance allergy status; F17.210 Nicotine dependence, cigarettes, uncomplicated; I10 Essential (primary) hypertension; E03.9 Hypothyroidism, unspecified; E11.9 Type 2 diabetes mellitus without complications
CPT/HCPCS: 36415; 71250; 74176; 80048; 85025; 85610; 85730; 93005; 99284